=== PATIENT | female | born 1945 | race Caucasian/White ===

== ENCOUNTER → 2016-04-24 | Outpatient (REF) | payer MEDICARE, MEDICAID | LOC: M LAB REF 15:03 | PROVIDERS: ATTEND Physician Assistant | DX: R50.9 Fever, unspecified (principal) ==

== ENCOUNTER 2016-05-26 14:19 | Emergency (ER) | payer OTHER, MEDICAID ==
[~2016-05-26] VITALS: Ht 160 cm; Wt 72.6 kg
[2016-05-26] MEDS ORDERED: TYLE500T78 PO (15:21)
[2016-05-26 15:35] LABS: BASO # 0.1 K/mm3 (0.0-0.2); BASO % 0.9 % (0.0-1.0); EOS # 1.3 K/mm3 (0.0-0.50); EOS % 18.6 % (0.0-3.0); LARGE UNSTAINED CELL # 0.1 K/mm3 (0.0-0.4); LARGE UNSTAINED CELL % 1.7 % (0.0-4.0); LYMPH # 1.7 K/mm3 (1.5-4.5); LYMPH % 23.4 % (24.0-44.0); MEAN CORPUSCULAR HEMOGLOBIN 30.3 pg (27.0-33.0); MEAN CORPUSCULAR HGB CONC 33.4 g/dl (32.0-36.5); MEAN CORPUSCULAR VOLUME 90.6 fl (80.0-96.0); MONO # 0.4 K/mm3 (0.0-0.8); MONO % 5.1 % (0.0-5.0); NEUTROPHILS # 3.4 K/mm3 (1.8-7.7); NEUTROPHILS % 50.3 % (36.0-66.0); PLATELET COUNT, AUTOMATED 239 k/mm3 (150-450); RED CELL DISTRIBUTION WIDTH 13.6 % (11.5-14.5); WHITE BLOOD COUNT 6.8 K/mm3 (4.0-10.0)
[2016-05-26 15:56] LABS: ALBUMIN 3.4 GM/DL (3.2-5.2); ALBUMIN/GLOBULIN RATIO 0.74 (1.00-1.93); ALKALINE PHOSPHATASE 70 U/L (45-117); ALT/SGPT 8 U/L (12-78); ANION GAP 7 MEQ/L (8-16); AST/SGOT 12 U/L (15-37); BILIRUBIN,DIRECT 0.1 MG/DL (0.0-0.2); BILIRUBIN,TOTAL 0.4 MG/DL (0.2-1.0); BLOOD UREA NITROGEN 14 MG/DL (7-18); CALCIUM LEVEL 8.6 MG/DL (8.8-10.2); CARBON DIOXIDE LEVEL 29 MEQ/L (21-32); CHLORIDE LEVEL 105 MEQ/L (98-107); CREATININE FOR GFR 0.85 MG/DL (0.55-1.02); GLOMERULAR FILTRATION RATE > 60.0 (>45); GLUCOSE, FASTING 81 MG/DL (80-110); POTASSIUM SERUM 3.8 MEQ/L (3.5-5.1); SODIUM LEVEL 141 MEQ/L (136-145)
[2016-05-26] MEDS ORDERED: CHLO125TA PO (16:02)
[2016-05-26] MEDS ORDERED: CHLORTHALIDONE 12.5MG PER 1/2 TABLET PO ONE (16:15)
[2016-05-26 16:30] VITALS: BP 184/76
--- NOTE | 2016-05-26 20:05 | ECGEPIP ---
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
--- NOTE | 2016-05-27 07:43 | REP ---
Noncontrast brain CT: History: Altered mental status. No comparison views. Findings: Lateral paint pourer image demonstrates that the patient is edentulous. Bone window settings demonstrate an intact bony calvarium. Vascular calcification is seen in the distal vertebral and distal carotid arteries. The visualized paranasal sinuses are clear. There is mild cerebral atrophy. There is no evidence of intracranial hemorrhage. No extra-axial fluid collection is seen. No mass, infarction, midline shift or contusion is seen. Impression: Minimal diffuse atrophy and vascular calcification. No acute intracranial abnormality. Signed by Heladio Lao MD 05/27/2016 08:43 A
== END 2016-05-26 16:41 | disposition home or self-care (01) ==
LOC: M ED 15:49
DX: I10 Essential (primary) hypertension (principal); H53.8 Other visual disturbances

== ENCOUNTER 2016-06-28 12:17 | Emergency (ER) | payer OTHER, MEDICAID ==
[~2016-06-28 12:17] MED LIST: CHLO125TA PO; TYLE500T78 PO
[2016-06-28] MEDS ORDERED: NORCO, ANEXSIA 5/325MG TABLET (HYDROcodone/ACETAMINOPHEN) PO ONE (13:30)
--- NOTE | 2016-06-28 14:07 | REP ---
RIGHT LOWER EXTREMITY DUPLEX VENOUS ULTRASOUND: HISTORY: Right leg pain. FINDINGS: There is echogenic material, lack of compression, and absence of flow in the right femoral, common femoral, popliteal, and profunda femoral vein segments consistent with occlusive and fairly extensive deep vein thrombosis. IMPRESSION: Positive study. Extensive occlusive DVT right lower extremity common femoral vein through the popliteal vein. Signed by Heladio Lao MD 06/28/2016 04:47 P
[2016-06-28] MEDS ORDERED: ELIQ5TAB PO (14:16)
[2016-06-28] MEDS ORDERED: NORC1TAB4 PO (14:21)
[2016-06-28] MEDS ORDERED: CHLO125TA PO (14:21)
[2016-06-28 14:27] VITALS: BP 135/57
[2016-06-28] MEDS ORDERED: APIXABAN 5 MG TAB (ELIQUIS) PO ONE (14:30)
[2016-06-28 14:32] LABS: BASO # 0.1 K/mm3 (0.0-0.2); BASO % 0.6 % (0.0-1.0); EOS # 0.2 K/mm3 (0.0-0.50); EOS % 1.5 % (0.0-3.0); LARGE UNSTAINED CELL # 0.1 K/mm3 (0.0-0.4); LARGE UNSTAINED CELL % 0.9 % (0.0-4.0); LYMPH # 0.9 K/mm3 (1.5-4.5); LYMPH % 8.5 % (24.0-44.0); MEAN CORPUSCULAR HEMOGLOBIN 29.5 pg (27.0-33.0); MEAN CORPUSCULAR HGB CONC 32.6 g/dl (32.0-36.5); MEAN CORPUSCULAR VOLUME 90.4 fl (80.0-96.0); MONO # 0.5 K/mm3 (0.0-0.8); MONO % 4.6 % (0.0-5.0); NEUTROPHILS # 8.8 K/mm3 (1.8-7.7); NEUTROPHILS % 83.9 % (36.0-66.0); PLATELET COUNT, AUTOMATED 355 k/mm3 (150-450); RED CELL DISTRIBUTION WIDTH 12.9 % (11.5-14.5); WHITE BLOOD COUNT 10.5 K/mm3 (4.0-10.0)
[2016-06-28 14:45] LABS: INR 1.08
[2016-06-28 14:52] LABS: CALCIUM LEVEL 9.4 MG/DL (8.8-10.2); CREATININE FOR GFR 1.21 MG/DL (0.55-1.02); POTASSIUM SERUM 4.7 MEQ/L (3.5-5.1)
== END 2016-06-28 14:41 | disposition home or self-care (01) ==
LOC: M ED 12:58
DX: I82.401 Acute embolism and thrombosis of unspecified deep veins of right lower extremity (principal); I10 Essential (primary) hypertension

== ENCOUNTER → 2016-07-02 | Outpatient (REF) | payer OTHER, MEDICAID ==
[~2016-07-02] MED LIST changes: +ELIQ5TAB PO; +NORC1TAB4 PO
[2016-07-02 11:57] LABS: ALBUMIN/GLOBULIN RATIO 0.79 (1.00-1.93); ALKALINE PHOSPHATASE 62 U/L (45-117); ALT/SGPT 7 U/L (12-78); ANION GAP 7 MEQ/L (8-16); AST/SGOT 10 U/L (15-37); BILIRUBIN,TOTAL 0.4 MG/DL (0.2-1.0); BLOOD UREA NITROGEN 17 MG/DL (7-18); CALCIUM LEVEL 8.6 MG/DL (8.8-10.2); CARBON DIOXIDE LEVEL 31 MEQ/L (21-32); CHLORIDE LEVEL 100 MEQ/L (98-107); CHOLESTEROL LEVEL 166 MG/DL (<200); CREATININE FOR GFR 0.95 MG/DL (0.55-1.02); GLOMERULAR FILTRATION RATE > 60.0 (>45); GLUCOSE, FASTING 102 MG/DL (80-110); POTASSIUM SERUM 3.7 MEQ/L (3.5-5.1); SODIUM LEVEL 138 MEQ/L (136-145); TOTAL PROTEIN 6.8 GM/DL (6.4-8.2); TRIGLYCERIDES LEVEL 102 MG/DL (<150)
== END ==
LOC: M SFHCPLAZ 08:44
PROVIDERS: ATTEND Family Medicine
DX: I10 Essential (primary) hypertension (principal); Z13.21 Encounter for screening for nutritional disorder

== ENCOUNTER → 2016-07-18 | Outpatient (CLI) | payer OTHER, MEDICAID ==
--- NOTE | 2016-07-18 14:55 | REP ---
CHEST CT STUDY: LOW-DOSE LUNG CANCER SCREENING EXAM. NONCONTRAST. HISTORY: Tobacco use. COMPARISON: Chest x-ray December 20, 2004. FINDINGS: There is no evidence of pulmonary nodule or mass lesion. There is some linear fibrosis adjacent to the thoracic spine in the right lower lobe. The lung parenchyma is otherwise clear. There is vascular calcification in the aorta. IMPRESSION: Negative low-dose lung cancer screening chest CT study. Signed by Heladio Lao MD 07/18/2016 04:35 P
== END ==
LOC: M RAD 10:53
PROVIDERS: ATTEND Family Medicine
DX: Z12.2 Encounter for screening for malignant neoplasm of respiratory organs (principal); F17.210 Nicotine dependence, cigarettes, uncomplicated

== ENCOUNTER → 2016-08-13 | Outpatient (REF) | payer OTHER, MEDICAID | LOC: M SFHCPLAZ 11:01 | PROVIDERS: ATTEND Family Medicine | DX: Z12.4 Encounter for screening for malignant neoplasm of cervix (principal); R87.610 Atypical squamous cells of undetermined significance on cytologic smear of cervix (ASC-US) | CPT/HCPCS: 87624; G0123; G0463 ==

== ENCOUNTER → 2016-08-21 | Outpatient (REF) | payer MEDICARE, OTHER | LOC: M LABDRAW1 15:52 | PROVIDERS: ATTEND Family Medicine | DX: E78.5 Hyperlipidemia, unspecified (principal) ==

== ENCOUNTER → 2016-08-27 | Outpatient (CLI) | payer OTHER, MEDICAID ==
--- NOTE | 2016-08-27 14:15 | REPMRS ---
Patient History The patient states she had a clinical breast exam in 08/25 Baseline Mammogram Patient is postmenopausal. No known family history of cancer. Digital Woman Screen Mammo: August 27, 2016 - Exam #: [id number] Bilateral CC and MLO view(s) were taken. Technologist: Hattie Santoyo, Technologist FINDINGS: The breast tissue is extremely dense which could obscure a lesion on mammography. There is no evidence of cancer on this mammogram. ASSESSMENT: BI-RADS/ACR category 2 mammogram. Benign finding(s). Recommendation Routine screening mammogram of both breasts in 1 year (for women over age 40). This mammogram was interpreted with the aid of an FDA-approved computer-aided dectection system. Electronically Signed By: James Cordero MD 08/27/16 [id number]
== END ==
LOC: M WHC 12:47
PROVIDERS: ATTEND Family Medicine
DX: Z12.31 Encounter for screening mammogram for malignant neoplasm of breast (principal)

== ENCOUNTER → 2016-10-03 | Outpatient (CLI) | payer OTHER, MEDICAID ==
[~2016-10-03] VITALS: Ht 157.5 cm; Wt 72.6 kg
[~2016-10-03] MED LIST changes: +ATOR1TAB21 PO; +BIMA01SOL; +LIDOCAINE 2% INJ 100 MG/5 ML SDV (FOR ANES.) As Ordered ONE; +NS 1,000 ML IV ONE; +PROPOFOL 200 MG/20 ML VIAL As Ordered ONE; +VITA1CAP40 PO; +XARE20TA PO
--- NOTE | 2016-10-03 12:17 | ROOR ---
Patient Name: Nedra Bledsoe Procedure Date: 10/03/2016 11:38 AM Date of : 1945 Age: 71 Room: [facility] Gender: Female Note Status: Finalized Procedure: Colonoscopy Indications: Screening for colorectal malignant neoplasm Providers: DO Emily Da Silva MD: Yaquelin Diaz MD Requesting Provider: Medicines: Propofol per Anesthesia Complications: No immediate complications. Procedure: Pre-Anesthesia Assessment: - Prior to the procedure, a History and Physical was performed, and patient medications and allergies were reviewed. The patient is competent. The risks and benefits of the procedure and the sedation options and risks were discussed with the patient. All questions were answered and informed consent was obtained. Patient identification and proposed procedure were verified by the physician, the nurse, the anesthesiologist and the paint laboratory technician in the endoscopy suite. Mental Status Examination: alert and oriented. Airway Examination: normal oropharyngeal airway and neck mobility. Respiratory Examination: clear to auscultation. CV Examination: normal. Prophylactic Antibiotics: The patient does not require prophylactic antibiotics. Prior Anticoagulants: The patient has taken Xarelto (rivaroxaban), last dose was 3 days prior to procedure. ASA Grade Assessment: II - A patient with mild systemic disease. After reviewing the risks and benefits, the patient was deemed in satisfactory condition to undergo the procedure. The anesthesia plan was to use monitored anesthesia care (MAC). Immediately prior to administration of medications, the patient was re-assessed for adequacy to receive sedatives. The heart rate, respiratory rate, oxygen saturations, blood pressure, adequacy of pulmonary ventilation, and response to care were monitored throughout the procedure. The physical status of the patient was re-assessed after the procedure. The Colonoscope was introduced through the anus and advanced to the cecum, identified by appendiceal orifice and ileocecal valve. The colonoscopy was performed without difficulty. The patient tolerated the procedure well. Findings: Two hyperplastic polyps were found in the proximal transverse colon and ascending colon. The polyps were 3 to 6 mm in size. These polyps were removed with a jumbo cold forceps. Resection and retrieval were complete. Estimated blood loss was minimal. Multiple small and large-mouthed diverticula were found in the sigmoid colon. The exam was otherwise without abnormality on direct and retroflexion views. Impression: - Two 3 to 6 mm polyps in the proximal transverse colon and in the ascending colon, removed with a jumbo cold forceps. Resected and retrieved. - Diverticulosis in the sigmoid colon. - The examination was otherwise normal on direct and retroflexion views. Recommendation: - Patient has a contact number available for emergencies. The signs and symptoms of potential delayed complications were discussed with the patient. Return to normal activities tomorrow. Written discharge instructions were provided to the patient. - Repeat colonoscopy in 5-10 years for surveillance based on pathology results. - Return to my office PRN. - Telephone my office for pathology results in 1 week. James Christine DO 10/03/2016 12:16:47 PM This report has been signed electronically. Number of Addenda: 0 Note Initiated On: 10/03/2016 11:38 AM Estimated Blood Loss: Estimated blood loss was minimal.
[2016-10-03 12:40] VITALS: BP 168/68
== END | disposition home or self-care (01) ==
LOC: M OPP 11:11
PROVIDERS: ATTEND Surgery
DX: Z12.11 Encounter for screening for malignant neoplasm of colon (principal); D12.2 Benign neoplasm of ascending colon; D12.3 Benign neoplasm of transverse colon; K57.30 Diverticulosis of large intestine without perforation or abscess without bleeding; I10 Essential (primary) hypertension; E78.5 Hyperlipidemia, unspecified; Z86.718 Personal history of other venous thrombosis and embolism; Z78.0 Asymptomatic menopausal state; F17.210 Nicotine dependence, cigarettes, uncomplicated; Z79.01 Long term (current) use of anticoagulants; Z79.899 Other long term (current) drug therapy; Z80.9 Family history of malignant neoplasm, unspecified

== ENCOUNTER → 2017-02-20 | Outpatient (REF) | payer OTHER, MEDICAID ==
[~2017-02-20] MED LIST changes: -LIDOCAINE 2% INJ 100 MG/5 ML SDV (FOR ANES.) As Ordered ONE; -NS 1,000 ML IV ONE; -PROPOFOL 200 MG/20 ML VIAL As Ordered ONE
[2017-02-20 11:12] LABS: CALCIUM LEVEL 8.6 MG/DL (8.8-10.2); CREATININE FOR GFR 1.05 MG/DL (0.55-1.02); GLOMERULAR FILTRATION RATE 55.2 (>39); POTASSIUM SERUM 4.1 MEQ/L (3.5-5.1)
== END ==
LOC: M SFHCPLAZ 09:09
PROVIDERS: ATTEND Family Medicine
DX: I10 Essential (primary) hypertension (principal)

== ENCOUNTER → 2017-02-27 | Outpatient (CLI) | payer OTHER, MEDICAID ==
--- NOTE | 2017-03-01 10:34 | DEXA ---
AP SPINE L1 - L4 1.330 1.1 2.8 LT FEMUR TOTAL 1.139 1.0 2.5 RT FEMUR TOTAL 1.099 0.7 2.2 TOTAL BODY TOTAL OTHER COMMENTS: Normal bone densitometry of the spine and hips. FOLLOW-UP: Recommendation for the next bone density exam: 5 years. AMBROCIO
== END ==
LOC: M WHC 07:42
PROVIDERS: ATTEND Family Medicine
DX: M81.0 Age-related osteoporosis without current pathological fracture (principal)

== ENCOUNTER 2017-09-19 15:28 | Inpatient (IN) | payer OTHER, MEDICAID ==
[2017-09-19 17:11] LABS: BEDSIDE GLUCOSE 142 MG/DL (83-110)
[2017-09-19 17:23] LABS: BASO % 0.3 % (0.0-1.0); EOS % 0.3 % (0.0-3.0); HEMATOCRIT 19.7 % (36.0-47.0); IMMATURE GRANULOCYTE % 1.2 % (0-3.0); LYMPH # 1.4 10^3/uL (1.5-4.5); LYMPH % 10.7 % (24.0-44.0); MEAN CORPUSCULAR HEMOGLOBIN 31.3 pg (27.0-33.0); MEAN CORPUSCULAR HGB CONC 33.5 g/dl (32.0-36.5); MEAN CORPUSCULAR VOLUME 93.4 fl (80.0-96.0); MONO # 0.8 10^3/uL (0.0-0.8); MONO % 6.1 % (0.0-5.0); NEUTROPHILS % 81.4 % (36.0-66.0); PLATELET COUNT, AUTOMATED 247 10^3/uL (150-450); RED BLOOD COUNT 2.11 10^6/uL (4.00-5.40); RED CELL DISTRIBUTION WIDTH 14.3 % (11.5-14.5); WHITE BLOOD COUNT 13.5 10^3/uL (4.0-10.0)
[2017-09-19 17:40] LABS: HEMOGLOBIN 6.6 g/dl (12.0-15.5)
[2017-09-19 17:41] LABS: INR 1.15; PROTHROMBIN TIME 14.9 SECONDS (12.1-14.4)
[2017-09-19 17:42] LABS: PARTIAL THROMBOPLASTIN TIME 23.3 SECONDS (25.4-37.6)
[2017-09-19 17:46] LABS: ANION GAP 10 MEQ/L (8-16); BLOOD UREA NITROGEN 38 MG/DL (7-18); CALCIUM LEVEL 8.3 MG/DL (8.8-10.2); CARBON DIOXIDE LEVEL 28 MEQ/L (21-32); CHLORIDE LEVEL 104 MEQ/L (98-107); CPK CREATINE PHOSPHOKINASE 68 U/L (26-192); CREATININE FOR GFR 1.11 MG/DL (0.55-1.30); FREE T4 1.09 NG/DL (0.76-1.46); GLOMERULAR FILTRATION RATE 51.6 (>39); GLUCOSE, FASTING 134 MG/DL (70-100); POTASSIUM SERUM 3.1 MEQ/L (3.5-5.1); SODIUM LEVEL 142 MEQ/L (136-145); TROPONIN I < 0.02 NG/ML (< 0.10)
[2017-09-19 17:52] LABS: CK-MB VALUE MASS 1.8 NG/ML (<3.6); MB/CK RELATIVE INDEX 2.64 (< OR =4)
[2017-09-19] MEDS: NS 1,000 ML IV (18:11)
[2017-09-19 18:14] LABS: KETONE, URINE AUTO RFX NEGATIVE (NEGATIVE); MUCUS, URINE RFX SMALL (NEGATIVE); NITRITE, URINE AUTO RFX NEGATIVE (NEGATIVE); RBC, URINE AUTO RFX 6 /HPF (0-3); SPECIFIC GRAVITY UR AUTO RFX 1.017 (1.002-1.035); SQUAM EPITHELIAL CELL UR AURFX 5 /HPF (0-6)
[2017-09-19 18:17] LABS: LEUKOCYTE ESTERASE UR AUTO RFX 3+ (NEGATIVE); WBC, URINE AUTO RFX 55 /HPF (0-3)
[2017-09-19 18:27] LABS: AMPHETAMINES LEVEL URINE NEGATIVE (NEGATIVE); BARBITURATES URINE NEGATIVE (NEGATIVE); BENZODIAZEPINES URINE NEGATIVE (NEGATIVE); CANNABINOIDS URINE NEGATIVE (NEGATIVE); COCAINE METABOLITE URINE NEGATIVE (NEGATIVE); METHADONE URINE NEGATIVE (NEGATIVE); OPIATES URINE NEGATIVE (NEGATIVE); PHENCYCLIDINE URINE NEGATIVE (NEGATIVE)
[2017-09-19] MEDS: PANTOPRAZOLE 40MG INJ (PROTONIX) (C9113) IV (18:31)
[2017-09-19] MEDS: NS 500 ML IV (18:32)
[2017-09-19] MEDS: POTASSIUM CHLORIDE 10 MEQ SR TABLET PO (18:32)
[2017-09-19 19:18] LABS: IMMEDIATE SPIN CROSSMATCH 1 2
[2017-09-19] MEDS ORDERED: ONDANSETRON 4MG/2ML VIAL (J2405) IV (21:15)
[2017-09-20] MEDS: PANTOPRAZOLE SODIUM 40 MG in D5W 50 ML IV ×6 (00:39→20:48)
[2017-09-20] MEDS: NS 1,000 ML IV (00:39)
[2017-09-20] MEDS: cefTRIAXone SOD 1 GM in D5W MINI-BAG PLUS 50 ML IV ×2 (00:40→22:01)
[2017-09-20 01:22] LABS: HEMOGLOBIN 8.2 g/dl (12.0-15.5)
[2017-09-20 05:28] LABS: BASO % 0.4 % (0.0-1.0); EOS # 0.1 10^3/uL (0.0-0.50); EOS % 0.8 % (0.0-3.0); HEMATOCRIT 23.4 % (36.0-47.0); HEMOGLOBIN 7.9 g/dl (12.0-15.5); IMMATURE GRANULOCYTE % 1.1 % (0-3.0); LYMPH % 21.7 % (24.0-44.0); MEAN CORPUSCULAR HEMOGLOBIN 31.3 pg (27.0-33.0); MEAN CORPUSCULAR HGB CONC 33.8 g/dl (32.0-36.5); MEAN CORPUSCULAR VOLUME 92.9 fl (80.0-96.0); MONO # 0.7 10^3/uL (0.0-0.8); MONO % 7.3 % (0.0-5.0); NEUTROPHILS # 6.2 10^3/uL (1.8-7.7); NEUTROPHILS % 68.7 % (36.0-66.0); PLATELET COUNT, AUTOMATED 205 10^3/uL (150-450); RED BLOOD COUNT 2.52 10^6/uL (4.00-5.40); RED CELL DISTRIBUTION WIDTH 14.3 % (11.5-14.5)
[2017-09-20 05:45] LABS: ANION GAP 8 MEQ/L (8-16); BLOOD UREA NITROGEN 30 MG/DL (7-18); CALCIUM LEVEL 7.5 MG/DL (8.8-10.2); CARBON DIOXIDE LEVEL 27 MEQ/L (21-32); CHLORIDE LEVEL 110 MEQ/L (98-107); CREATININE FOR GFR 0.94 MG/DL (0.55-1.30); GLOMERULAR FILTRATION RATE > 60.0 (>39); GLUCOSE, FASTING 96 MG/DL (70-100); MAGNESIUM LEVEL 1.9 MG/DL (1.8-2.4); POTASSIUM SERUM 3.2 MEQ/L (3.5-5.1); SODIUM LEVEL 145 MEQ/L (136-145)
[2017-09-20] MEDS: MAG SULF 1GM/100ML (MAG RUN) 1 GM in APPROPRIATE DILUENT 1 EA IV (06:51)
[2017-09-20] MEDS: POTASSIUM CHLORIDE 10 MEQ SR TABLET PO (06:51)
[2017-09-20] MEDS ORDERED: LIDOCAINE 2% INJ 100 MG/5 ML SDV (FOR ANES.) As Ordered (08:24)
[2017-09-20] MEDS ORDERED: PROPOFOL 200 MG/20 ML VIAL As Ordered ×2 (08:24→10:36)
[2017-09-20] MEDS: KCL 40MEQ in NS 1000ML 1,000 ML IV (08:41)
[2017-09-20 09:41] LABS: PROLACTIN 7.3 NG/ML
[2017-09-20 10:04] LABS: CK-MB VALUE MASS 2.1 NG/ML (<3.6); CPK CREATINE PHOSPHOKINASE 115 U/L (26-192); MB/CK RELATIVE INDEX 1.82 (< OR =4); TROPONIN I < 0.02 NG/ML (< 0.10)
[2017-09-20] MEDS ORDERED: fentaNYL 100 MCG/2 ML INJECTION (J3010) As Ordered (10:26)
[2017-09-20 12:18] LABS: IMMEDIATE SPIN CROSSMATCH 1 1
[2017-09-20 12:44] LABS: HEMATOCRIT 22.5 % (36.0-47.0); HEMOGLOBIN 7.8 g/dl (12.0-15.5)
[2017-09-20 13:23] LABS: CPK CREATINE PHOSPHOKINASE 143 U/L (26-192); TROPONIN I < 0.02 NG/ML (< 0.10)
[2017-09-20 13:24] LABS: CK-MB VALUE MASS 2.5 NG/ML (<3.6); MB/CK RELATIVE INDEX 1.74 (< OR =4)
[2017-09-20] MEDS: ACETAMINOPHEN TAB 650MG DOSE (2X325MG) PO (13:30)
[2017-09-20 18:36] LABS: HEMATOCRIT 26.4 % (36.0-47.0)
[2017-09-20 19:05] LABS: CPK CREATINE PHOSPHOKINASE 189 U/L (26-192); TROPONIN I < 0.02 NG/ML (< 0.10)
[2017-09-20 19:06] LABS: CK-MB VALUE MASS 3.1 NG/ML (<3.6); MB/CK RELATIVE INDEX 1.64 (< OR =4)
[2017-09-21] MEDS: KCL 40MEQ in NS 1000ML 1,000 ML IV ×2 (00:18→09:13)
[2017-09-21 00:31] LABS: HEMATOCRIT 27.2 % (36.0-47.0); HEMOGLOBIN 9.6 g/dl (12.0-15.5)
[2017-09-21] MEDS: PANTOPRAZOLE SODIUM 40 MG in D5W 50 ML IV ×2 (03:30→09:01)
[2017-09-21 05:47] LABS: BASO # 0.1 10^3/uL (0.0-0.2); BASO % 0.6 % (0.0-1.0); EOS # 0.2 10^3/uL (0.0-0.50); HEMATOCRIT 25.8 % (36.0-47.0); HEMOGLOBIN 8.8 g/dl (12.0-15.5); LYMPH # 1.7 10^3/uL (1.5-4.5); LYMPH % 18.4 % (24.0-44.0); MEAN CORPUSCULAR HEMOGLOBIN 31.1 pg (27.0-33.0); MEAN CORPUSCULAR HGB CONC 34.1 g/dl (32.0-36.5); MEAN CORPUSCULAR VOLUME 91.2 fl (80.0-96.0); MONO # 0.9 10^3/uL (0.0-0.8); MONO % 9.4 % (0.0-5.0); NEUTROPHILS # 6.3 10^3/uL (1.8-7.7); NEUTROPHILS % 68.6 % (36.0-66.0); PLATELET COUNT, AUTOMATED 203 10^3/uL (150-450); RED BLOOD COUNT 2.83 10^6/uL (4.00-5.40); RED CELL DISTRIBUTION WIDTH 15.9 % (11.5-14.5); WHITE BLOOD COUNT 9.1 10^3/uL (4.0-10.0)
[2017-09-21 06:20] LABS: ANION GAP 6 MEQ/L (8-16); BLOOD UREA NITROGEN 13 MG/DL (7-18); CALCIUM LEVEL 7.1 MG/DL (8.8-10.2); CARBON DIOXIDE LEVEL 26 MEQ/L (21-32); CHLORIDE LEVEL 115 MEQ/L (98-107); CHOLESTEROL LEVEL 84 MG/DL (<200); CHOLESTEROL RISK RATIO 2.896 (<5); CREATININE FOR GFR 0.84 MG/DL (0.55-1.30); GLOMERULAR FILTRATION RATE > 60.0 (>39); GLUCOSE, FASTING 91 MG/DL (70-100); HDL CHOLESTEROL 29 MG/DL (>40); LDL CHOLESTEROL 30.4 MG/DL (<100); MAGNESIUM LEVEL 2.2 MG/DL (1.8-2.4); NON-HDL-C 55 MG/DL; POTASSIUM SERUM 4.2 MEQ/L (3.5-5.1); SODIUM LEVEL 147 MEQ/L (136-145); TRIGLYCERIDES LEVEL 123 MG/DL (<150)
[2017-09-21] MEDS: PANTOPRAZOLE 40MG INJ (PROTONIX) (C9113) IV ×2 (11:30→22:12)
[2017-09-21 12:15] LABS: HEMATOCRIT 25.8 % (36.0-47.0); HEMOGLOBIN 8.7 g/dl (12.0-15.5)
[2017-09-21] MEDS: CIPROFLOXACIN 500 MG TAB PO (17:50)
[2017-09-21 18:21] LABS: HEMATOCRIT 26.6 % (36.0-47.0); HEMOGLOBIN 8.8 g/dl (12.0-15.5)
[2017-09-22 00:08] LABS: HEMATOCRIT 25.7 % (36.0-47.0); HEMOGLOBIN 8.5 g/dl (12.0-15.5)
[2017-09-22] MEDS: CIPROFLOXACIN 500 MG TAB PO ×2 (05:59→17:33)
[2017-09-22 06:35] LABS: BASO % 0.4 % (0.0-1.0); EOS # 0.2 10^3/uL (0.0-0.50); EOS % 2.9 % (0.0-3.0); HEMATOCRIT 24.8 % (36.0-47.0); HEMOGLOBIN 8.3 g/dl (12.0-15.5); IMMATURE GRANULOCYTE % 0.7 % (0-3.0); LYMPH # 1.6 10^3/uL (1.5-4.5); MEAN CORPUSCULAR HEMOGLOBIN 31.3 pg (27.0-33.0); MEAN CORPUSCULAR HGB CONC 33.5 g/dl (32.0-36.5); MEAN CORPUSCULAR VOLUME 93.6 fl (80.0-96.0); MONO # 0.6 10^3/uL (0.0-0.8); MONO % 8.7 % (0.0-5.0); NEUTROPHILS # 4.7 10^3/uL (1.8-7.7); NEUTROPHILS % 65.3 % (36.0-66.0); PLATELET COUNT, AUTOMATED 232 10^3/uL (150-450); RED BLOOD COUNT 2.65 10^6/uL (4.00-5.40); RED CELL DISTRIBUTION WIDTH 16.8 % (11.5-14.5); WHITE BLOOD COUNT 7.1 10^3/uL (4.0-10.0)
[2017-09-22 06:49] LABS: ANION GAP 7 MEQ/L (8-16); BLOOD UREA NITROGEN 10 MG/DL (7-18); CALCIUM LEVEL 7.6 MG/DL (8.8-10.2); CARBON DIOXIDE LEVEL 27 MEQ/L (21-32); CHLORIDE LEVEL 113 MEQ/L (98-107); CREATININE FOR GFR 0.91 MG/DL (0.55-1.30); GLOMERULAR FILTRATION RATE > 60.0 (>39); GLUCOSE, FASTING 85 MG/DL (70-100); MAGNESIUM LEVEL 2.4 MG/DL (1.8-2.4); POTASSIUM SERUM 4.3 MEQ/L (3.5-5.1); SODIUM LEVEL 147 MEQ/L (136-145)
[2017-09-22 11:28] LABS: IMMEDIATE SPIN CROSSMATCH 1 2
[2017-09-22] MEDS: PANTOPRAZOLE 40MG INJ (PROTONIX) (C9113) IV ×2 (11:29→23:09)
[2017-09-22] MEDS: CHLORTHALIDONE 12.5MG PER 1/2 TABLET PO (16:31)
[2017-09-23 00:47] LABS: HEMOGLOBIN 10.8 g/dl (12.0-15.5)
[2017-09-23] MEDS: ACETAMINOPHEN TAB 650MG DOSE (2X325MG) PO (01:40)
[2017-09-23] MEDS: CIPROFLOXACIN 500 MG TAB PO ×2 (06:40→17:26)
[2017-09-23 07:03] LABS: BASO % 0.5 % (0.0-1.0); EOS # 0.2 10^3/uL (0.0-0.50); EOS % 3.2 % (0.0-3.0); HEMATOCRIT 31.6 % (36.0-47.0); HEMOGLOBIN 10.5 g/dl (12.0-15.5); IMMATURE GRANULOCYTE % 0.5 % (0-3.0); LYMPH # 1.5 10^3/uL (1.5-4.5); LYMPH % 23.9 % (24.0-44.0); MEAN CORPUSCULAR HEMOGLOBIN 30.5 pg (27.0-33.0); MEAN CORPUSCULAR HGB CONC 33.2 g/dl (32.0-36.5); MEAN CORPUSCULAR VOLUME 91.9 fl (80.0-96.0); MONO # 0.6 10^3/uL (0.0-0.8); MONO % 10.2 % (0.0-5.0); NEUTROPHILS # 3.9 10^3/uL (1.8-7.7); NEUTROPHILS % 61.7 % (36.0-66.0); PLATELET COUNT, AUTOMATED 221 10^3/uL (150-450); RED BLOOD COUNT 3.44 10^6/uL (4.00-5.40); RED CELL DISTRIBUTION WIDTH 16.7 % (11.5-14.5); WHITE BLOOD COUNT 6.3 10^3/uL (4.0-10.0)
[2017-09-23 07:15] LABS: ANION GAP 5 MEQ/L (8-16); BLOOD UREA NITROGEN 9 MG/DL (7-18); CARBON DIOXIDE LEVEL 29 MEQ/L (21-32); CHLORIDE LEVEL 111 MEQ/L (98-107); CREATININE FOR GFR 0.94 MG/DL (0.55-1.30); GLOMERULAR FILTRATION RATE > 60.0 (>39); GLUCOSE, FASTING 83 MG/DL (70-100); MAGNESIUM LEVEL 2.1 MG/DL (1.8-2.4); POTASSIUM SERUM 4.1 MEQ/L (3.5-5.1); SODIUM LEVEL 145 MEQ/L (136-145)
[2017-09-23] MEDS: CHLORTHALIDONE 12.5MG PER 1/2 TABLET PO (08:29)
[2017-09-23] MEDS: PANTOPRAZOLE 40MG INJ (PROTONIX) (C9113) IV ×2 (11:00→22:12)
[2017-09-23 14:01] LABS: HEMOGLOBIN 11.9 g/dl (12.0-15.5)
[2017-09-23 18:35] LABS: HEMATOCRIT 35.3 % (36.0-47.0); HEMOGLOBIN 11.8 g/dl (12.0-15.5)
[2017-09-24 00:27] LABS: HEMATOCRIT 31.8 % (36.0-47.0); HEMOGLOBIN 10.7 g/dl (12.0-15.5)
[2017-09-24] MEDS: CIPROFLOXACIN 500 MG TAB PO ×2 (05:55→17:45)
[2017-09-24 06:58] LABS: BASO % 0.5 % (0.0-1.0); EOS # 0.2 10^3/uL (0.0-0.50); EOS % 3.4 % (0.0-3.0); HEMATOCRIT 31.7 % (36.0-47.0); HEMOGLOBIN 10.7 g/dl (12.0-15.5); IMMATURE GRANULOCYTE % 0.3 % (0-3.0); LYMPH # 1.2 10^3/uL (1.5-4.5); MEAN CORPUSCULAR HEMOGLOBIN 30.8 pg (27.0-33.0); MEAN CORPUSCULAR HGB CONC 33.8 g/dl (32.0-36.5); MEAN CORPUSCULAR VOLUME 91.4 fl (80.0-96.0); MONO # 0.7 10^3/uL (0.0-0.8); MONO % 11.8 % (0.0-5.0); NEUTROPHILS # 3.7 10^3/uL (1.8-7.7); PLATELET COUNT, AUTOMATED 243 10^3/uL (150-450); RED BLOOD COUNT 3.47 10^6/uL (4.00-5.40); RED CELL DISTRIBUTION WIDTH 15.6 % (11.5-14.5); WHITE BLOOD COUNT 5.8 10^3/uL (4.0-10.0)
[2017-09-24 07:17] LABS: ANION GAP 7 MEQ/L (8-16); BLOOD UREA NITROGEN 8 MG/DL (7-18); CALCIUM LEVEL 8.5 MG/DL (8.8-10.2); CARBON DIOXIDE LEVEL 29 MEQ/L (21-32); CHLORIDE LEVEL 106 MEQ/L (98-107); CREATININE FOR GFR 0.93 MG/DL (0.55-1.30); GLOMERULAR FILTRATION RATE > 60.0 (>39); GLUCOSE, FASTING 84 MG/DL (70-100); MAGNESIUM LEVEL 2.1 MG/DL (1.8-2.4); POTASSIUM SERUM 3.9 MEQ/L (3.5-5.1); SODIUM LEVEL 142 MEQ/L (136-145)
[2017-09-24] MEDS: CHLORTHALIDONE 12.5MG PER 1/2 TABLET PO (08:50)
[2017-09-24] MEDS: PANTOPRAZOLE 40MG INJ (PROTONIX) (C9113) IV ×2 (11:46→22:34)
[2017-09-24 12:31] LABS: HEMATOCRIT 35.8 % (36.0-47.0); HEMOGLOBIN 12.1 g/dl (12.0-15.5)
[2017-09-24 18:11] LABS: HEMOGLOBIN 11.9 g/dl (12.0-15.5)
[2017-09-25 00:23] LABS: HEMATOCRIT 30.9 % (36.0-47.0); HEMOGLOBIN 10.3 g/dl (12.0-15.5)
[2017-09-25] MEDS: CIPROFLOXACIN 500 MG TAB PO (05:18)
[2017-09-25 06:53] LABS: ANION GAP 5 MEQ/L (8-16); BLOOD UREA NITROGEN 13 MG/DL (7-18); CALCIUM LEVEL 8.5 MG/DL (8.8-10.2); CARBON DIOXIDE LEVEL 32 MEQ/L (21-32); CHLORIDE LEVEL 105 MEQ/L (98-107); CREATININE FOR GFR 1.07 MG/DL (0.55-1.30); GLOMERULAR FILTRATION RATE 53.8 (>39); GLUCOSE, FASTING 100 MG/DL (70-100); MAGNESIUM LEVEL 2.1 MG/DL (1.8-2.4); POTASSIUM SERUM 3.9 MEQ/L (3.5-5.1); SODIUM LEVEL 142 MEQ/L (136-145)
[2017-09-25 07:13] LABS: BASO % 0.5 % (0.0-1.0); EOS # 0.3 10^3/uL (0.0-0.50); EOS % 4.4 % (0.0-3.0); HEMATOCRIT 32.8 % (36.0-47.0); HEMOGLOBIN 10.8 g/dl (12.0-15.5); IMMATURE GRANULOCYTE % 0.4 % (0-3.0); LYMPH # 1.1 10^3/uL (1.5-4.5); LYMPH % 18.7 % (24.0-44.0); MEAN CORPUSCULAR HEMOGLOBIN 30.9 pg (27.0-33.0); MEAN CORPUSCULAR HGB CONC 32.9 g/dl (32.0-36.5); MONO # 0.7 10^3/uL (0.0-0.8); MONO % 11.5 % (0.0-5.0); NEUTROPHILS # 3.6 10^3/uL (1.8-7.7); NEUTROPHILS % 64.5 % (36.0-66.0); PLATELET COUNT, AUTOMATED 261 10^3/uL (150-450); RED BLOOD COUNT 3.49 10^6/uL (4.00-5.40); RED CELL DISTRIBUTION WIDTH 14.8 % (11.5-14.5); WHITE BLOOD COUNT 5.6 10^3/uL (4.0-10.0)
[2017-09-25] MEDS: CHLORTHALIDONE 12.5MG PER 1/2 TABLET PO (10:17)
[2017-09-25] MEDS: PANTOPRAZOLE 40MG INJ (PROTONIX) (C9113) IV (10:17)
== END 2017-09-25 14:13 | disposition home or self-care (01) | DRG 378 ==
LOC: M MSPAV 09-21 10:55 → M ED 15:28 → M MSPAV 09-21 11:18 → M ED INP 21:08 → M PCU 23:25
PROC: 0W3P8ZZ Control Bleeding in Gastrointestinal Tract, Via Natural or Artificial Opening Endoscopic (ICD-10-PCS; principal; 2017-09-20 10:00)
PROC: 30233N1 Transfusion of Nonautologous Red Blood Cells into Peripheral Vein, Percutaneous Approach (ICD-10-PCS; 2017-09-20 10:09)
DX: K31.811 Angiodysplasia of stomach and duodenum with bleeding (principal); D62 Acute posthemorrhagic anemia; N39.0 Urinary tract infection, site not specified; I10 Essential (primary) hypertension; E78.5 Hyperlipidemia, unspecified; H40.9 Unspecified glaucoma; Z86.718 Personal history of other venous thrombosis and embolism; Z98.49 Cataract extraction status, unspecified eye; F17.210 Nicotine dependence, cigarettes, uncomplicated; Z79.899 Other long term (current) drug therapy; Z79.01 Long term (current) use of anticoagulants; I45.10 Unspecified right bundle-branch block; B96.20 Unspecified Escherichia coli [E. coli] as the cause of diseases classified elsewhere

== ENCOUNTER → 2017-10-08 | Outpatient (REF) | payer OTHER ==
[2017-10-08 13:08] LABS: HEMATOCRIT 41.3 % (36.0-47.0); HEMOGLOBIN 13.4 g/dl (12.0-15.5); MEAN CORPUSCULAR HEMOGLOBIN 30.6 pg (27.0-33.0); MEAN CORPUSCULAR HGB CONC 32.4 g/dl (32.0-36.5); MEAN CORPUSCULAR VOLUME 94.3 fl (80.0-96.0); PLATELET COUNT, AUTOMATED 355 10^3/uL (150-450); RED BLOOD COUNT 4.38 10^6/uL (4.00-5.40); RED CELL DISTRIBUTION WIDTH 14.3 % (11.5-14.5); WHITE BLOOD COUNT 5.8 10^3/uL (4.0-10.0)
[2017-10-08 13:48] LABS: TOTAL 25(OH) VITAMIN D 107.2 NG/ML (30.0-100.0)
== END ==
LOC: M SFHCPLAZ 11:50
DX: D62 Acute posthemorrhagic anemia (principal); E55.9 Vitamin D deficiency, unspecified; Z79.899 Other long term (current) drug therapy
CPT/HCPCS: 82306

== ENCOUNTER → 2017-10-18 | Outpatient (CLI) | payer OTHER, MEDICAID | LOC: M WHC 09:10 | DX: Z12.31 Encounter for screening mammogram for malignant neoplasm of breast (principal) | CPT/HCPCS: 77067 ==

== ENCOUNTER → 2017-10-28 | Outpatient (REF) | payer OTHER ==
[2017-10-28 16:13] LABS: ANION GAP 8 MEQ/L (8-16); BLOOD UREA NITROGEN 15 MG/DL (7-18); CALCIUM LEVEL 8.9 MG/DL (8.8-10.2); CARBON DIOXIDE LEVEL 29 MEQ/L (21-32); CHLORIDE LEVEL 105 MEQ/L (98-107); CREATININE FOR GFR 1.18 MG/DL (0.55-1.30); GLOMERULAR FILTRATION RATE 48.1 (>39); GLUCOSE, FASTING 90 MG/DL (70-100); POTASSIUM SERUM 4.1 MEQ/L (3.5-5.1); SODIUM LEVEL 142 MEQ/L (136-145)
[2017-10-28 16:45] LABS: CREATININE, URINE 98.8 MG/DL; MALB URINE SIEMENS 38.3 MG/L; MAU/CREAT RATIO 38.7 MCG/MG (0.0-30.0)
== END ==
LOC: M SFHCPLAZ 13:31
DX: I10 Essential (primary) hypertension (principal)
CPT/HCPCS: 82043

== ENCOUNTER → 2017-11-12 | Outpatient (CLI) | payer OTHER, MEDICAID | LOC: M RAD 09:17 | DX: I87.301 Chronic venous hypertension (idiopathic) without complications of right lower extremity (principal) | CPT/HCPCS: 93971 ==

== ENCOUNTER → 2017-11-19 | Outpatient (CLI) | payer OTHER | LOC: M RAD 10:36 | DX: Z12.2 Encounter for screening for malignant neoplasm of respiratory organs (principal); Z87.891 Personal history of nicotine dependence | CPT/HCPCS: G0297 ==

== ENCOUNTER 2017-12-19 14:24 | Emergency (ER) | payer OTHER | END 2017-12-19 14:59 | disposition left against medical advice (07) | LOC: M ED 14:24 | DX: Z53.21 Procedure and treatment not carried out due to patient leaving prior to being seen by health care provider (principal) ==

== ENCOUNTER → 2017-12-19 | Outpatient (REF) | payer OTHER ==
[2017-12-19 19:46] LABS: INFLUENZA A AMPLIFICATION NEGATIVE (NEGATIVE); INFLUENZA B AMPLIFICATION NEGATIVE (NEGATIVE)
== END ==
LOC: M LAB REF 18:48
DX: J11.1 Influenza due to unidentified influenza virus with other respiratory manifestations (principal)
CPT/HCPCS: 87070

== ENCOUNTER → 2018-02-21 | Outpatient (REF) | payer OTHER | LOC: M SFHCPLAZ 11:19 | DX: Z00.00 Encounter for general adult medical examination without abnormal findings (principal); I10 Essential (primary) hypertension; E78.5 Hyperlipidemia, unspecified; E55.9 Vitamin D deficiency, unspecified; Z53.8 Procedure and treatment not carried out for other reasons ==

== ENCOUNTER → 2018-02-24 | Outpatient (REF) | payer OTHER ==
[~2018-02-24] MED LIST changes: +CIPR-249 PO; -VITA1CAP40 PO; +VITA50005 PO
[2018-02-24 12:25] LABS: HEMATOCRIT 43.5 % (36.0-47.0); HEMOGLOBIN 13.7 g/dl (12.0-15.5); MEAN CORPUSCULAR HEMOGLOBIN 28.8 pg (27.0-33.0); MEAN CORPUSCULAR HGB CONC 31.5 g/dl (32.0-36.5); MEAN CORPUSCULAR VOLUME 91.6 fl (80.0-96.0); PLATELET COUNT, AUTOMATED 310 10^3/uL (150-450); RED BLOOD COUNT 4.75 10^6/uL (4.00-5.40); WHITE BLOOD COUNT 4.9 10^3/uL (4.0-10.0)
[2018-02-24 12:34] LABS: ALBUMIN 3.4 GM/DL (3.2-5.2); BILIRUBIN,TOTAL 0.3 MG/DL (0.2-1.0); CALCIUM LEVEL 8.5 MG/DL (8.8-10.2); CHOLESTEROL RISK RATIO 3.617 (<5); CREATININE FOR GFR 1.1 MG/DL (0.55-1.30); GLOMERULAR FILTRATION RATE 52.1 (>39); POTASSIUM SERUM 4.6 MEQ/L (3.5-5.1); TOTAL PROTEIN 7.5 GM/DL (6.4-8.2)
[2018-02-24 12:37] LABS: TOTAL 25(OH) VITAMIN D 42.4 NG/ML (30.0-100.0)
== END ==
LOC: M SFHCPLAZ 08:45
PROVIDERS: ATTEND Nurse Practitioner Family
DX: I10 Essential (primary) hypertension (principal); E78.5 Hyperlipidemia, unspecified; E55.9 Vitamin D deficiency, unspecified

== ENCOUNTER → 2018-06-16 | Outpatient (REF) | payer MEDICARE, MEDICAID ==
[~2018-06-16] MED LIST changes: -NORC1TAB4 PO; +NORC1TAB7 PO
[2018-06-16 19:04] LABS: CREATININE FOR GFR 1.04 MG/DL (0.55-1.30); GLOMERULAR FILTRATION RATE 55.6 (>39); POTASSIUM SERUM 4.4 MEQ/L (3.5-5.1)
== END ==
LOC: M SFHCPLAZ 15:03
PROVIDERS: ATTEND Family Medicine
DX: I12.9 Hypertensive chronic kidney disease with stage 1 through stage 4 chronic kidney disease, or unspecified chronic kidney disease (principal); N18.3 Chronic kidney disease, stage 3 (moderate)
CPT/HCPCS: 36415; 80048; G0463

== ENCOUNTER 2019-02-17 15:19 | Emergency (ER) | payer MEDICARE, MEDICAID ==
[~2019-02-17] VITALS: Ht 160 cm; Wt 81.8 kg
[2019-02-17 15:19] VITALS: BP 166/79
--- NOTE | 2019-02-17 17:15 | REPVR ---
PROCEDURE INFORMATION: Exam: US Duplex Right Lower Extremity Veins, Limited Exam date and time: 02/17/2019 5:10 PM Age: 73 years old Clinical history: Swelling (edema) of limb; Lower extremity, right; Additional info: Right leg swelling TECHNIQUE: Imaging protocol: Real-time Duplex ultrasound of the Right Lower Extremity with 2-D quintana scale, color Doppler flow and spectral waveform analysis with image documentation. Limited exam was focused on the right lower extremity veins. COMPARISON: US Duplex, Ext,LOWER veins,unilat 11/12/2017 9:51 AM FINDINGS: Right deep veins: Unremarkable. The common femoral, femoral, proximal profunda femoral and popliteal veins are patent without thrombus. Normal Doppler waveforms. Normal compressibility and/or augmentation response. Right superficial veins: Unremarkable. Saphenofemoral junction is patent without thrombus. Soft tissues: Lower leg edema. IMPRESSION: Lower leg edema. No DVT. Electronically signed by: Willy Nowak On 02/17/2019 17:14:44 PM
[2019-02-17 17:52] LABS: HEMATOCRIT 45.8 % (36.0-47.0); HEMOGLOBIN 14.8 g/dl (12.0-15.5); MEAN CORPUSCULAR HGB CONC 32.3 g/dl (32.0-36.5); MEAN CORPUSCULAR VOLUME 92.7 fl (80.0-96.0); PLATELET COUNT, AUTOMATED 338 10^3/uL (150-450); RED BLOOD COUNT 4.94 10^6/uL (4.00-5.40)
[2019-02-17 18:11] LABS: APPEARANCE, URINE CLEAR (CLEAR); BACTERIA, URINE AUTO NEGATIVE (NEGATIVE); BILIRUBIN, URINE AUTO NEGATIVE (NEGATIVE); BLOOD, URINE BLOOD 1+ (NEGATIVE); COLOR, URINE STRAW (YELLOW); GLUCOSE, URINE (UA) AUTO NEGATIVE (NEGATIVE); KETONE, URINE AUTO TRACE mg/dL (NEGATIVE); LEUKOCYTE ESTERASE, URINE AUTO 2+ (NEGATIVE); NITRITE, URINE AUTO NEGATIVE (NEGATIVE); PROTEIN, URINE AUTO NEGATIVE (NEGATIVE); RBC, URINE AUTO 1 /HPF (0-3); SPECIFIC GRAVITY URINE AUTO 1.003 (1.002-1.035); SQUAMOUS EPITHELIAL CELL UR AU 0 /HPF (0-6); UROBILINOGEN, URINE AUTO 0.2 mg/dL (0.0-2.0); WBC, URINE AUTO 37 /HPF (0-3)
[2019-02-17 18:26] LABS: C REACTIVE PROTEIN QUANTITATIV 1.4 MG/DL (0.00-0.30); CALCIUM LEVEL 9.5 MG/DL (8.8-10.2); CREATININE FOR GFR 1.04 MG/DL (0.55-1.30); GLOMERULAR FILTRATION RATE 55.5 (>39); POTASSIUM SERUM 4.1 MEQ/L (3.5-5.1)
[2019-02-17 18:38] LABS: ERYTHROCYTE SEDIMENTATION RATE 27 mm/hr (0-30)
--- NOTE | 2019-02-17 18:45 | REPVR ---
PROCEDURE INFORMATION: Exam: US Right Non-Vascular Joint or Other Extremity Structure, Limited Lower Extremity Exam date and time: 02/17/2019 6:34 PM Age: 73 years old Clinical history: Edema is generalized; Lower leg; Right; Additional info: Erythema/edema to RT le, visible weeping, wound to 2nd toe TECHNIQUE: Imaging protocol: Right US Non-Vascular Joint or Other Extremity Structure. Limited exam of the lower extremity. COMPARISON: No relevant prior studies available. FINDINGS: Soft tissues: Imaging the area of clinical concern in the region of the right pretibial region through the dorsal aspect of the foot along the fourth metatarsal demonstrates gross edema without evidence of a well-defined abscess. Gross cellulitis to be considered clinically. Bones/joints: Unremarkable. IMPRESSION: Imaging the area of clinical concern in the region of the right pretibial region through the dorsal aspect of the foot along the fourth metatarsal demonstrates gross edema without evidence of a well-defined abscess. Gross cellulitis to be considered clinically. Electronically signed by: Willy Nowak On 02/17/2019 18:45:05 PM
[2019-02-17] MEDS ORDERED: BACT800T5 PO (19:37)
[2019-02-17] MEDS ORDERED: TRAM50TA2 PO (19:37)
[2019-02-17] MEDS ORDERED: MUPI2OI TOP (19:42)
[2019-02-17] MEDS ORDERED: MUPIROCIN 2% OINT 22 GM TUBE TOP ONE (19:45)
[2019-02-17] MEDS ORDERED: traMADol 50 MG TAB PO ONE (20:30)
[2019-02-17] MEDS ORDERED: BACTRIM 160MG/800MG DS TAB PO ONE (20:30)
== END 2019-02-17 20:33 | disposition home or self-care (01) ==
LOC: M ED 15:19
DX: L03.031 Cellulitis of right toe (principal); Z86.718 Personal history of other venous thrombosis and embolism; F17.200 Nicotine dependence, unspecified, uncomplicated; Z79.899 Other long term (current) drug therapy

== ENCOUNTER → 2019-03-18 | Outpatient (REF) | payer MEDICARE, MEDICAID ==
[~2019-03-18] MED LIST changes: +BACT800T5 PO; +MUPI2OI TOP; +TRAM50TA2 PO
[2019-03-18 15:38] LABS: BASO # 0.1 10^3/uL (0.0-0.2); BASO % 1.2 % (0.0-1.0); EOS # 0.4 10^3/uL (0.0-0.5); EOS % 6.8 % (0.0-3.0); HEMATOCRIT 43.9 % (36.0-47.0); HEMOGLOBIN 13.6 g/dl (12.0-15.5); LYMPH # 1.3 10^3/uL (1.5-5.0); LYMPH % 21.8 % (24.0-44.0); MEAN CORPUSCULAR HEMOGLOBIN 29.5 pg (27.0-33.0); MEAN CORPUSCULAR VOLUME 95.2 fl (80.0-96.0); MONO # 0.6 10^3/uL (0.0-0.8); MONO % 10.2 % (0.0-5.0); NEUTROPHILS # 3.4 10^3/uL (1.5-8.5); NEUTROPHILS % 59.7 % (36.0-66.0); PLATELET COUNT, AUTOMATED 343 10^3/uL (150-450); RED BLOOD COUNT 4.61 10^6/uL (4.00-5.40); WHITE BLOOD COUNT 5.8 10^3/uL (4.0-10.0)
[2019-03-18 16:07] LABS: BLOOD UREA NITROGEN 16 MG/DL (7-18); C REACTIVE PROTEIN QUANTITATIV 1.05 MG/DL (0.00-0.30); CALCIUM LEVEL 8.7 MG/DL (8.8-10.2); CARBON DIOXIDE LEVEL 29 MEQ/L (21-32); CHLORIDE LEVEL 106 MEQ/L (98-107); ERYTHROCYTE SEDIMENTATION RATE 46 mm/hr (0-30); GLUCOSE, FASTING 89 MG/DL (70-100); NT-PRO BNP 271 PG/ML (<125); POTASSIUM SERUM 3.9 MEQ/L (3.5-5.1); SODIUM LEVEL 140 MEQ/L (136-145)
[2019-03-18 16:08] LABS: TOTAL 25(OH) VITAMIN D 31.7 NG/ML (30.0-100.0)
[2019-03-18 16:09] LABS: VITAMIN B12 LEVEL 336 PG/ML (247-911)
== END ==
LOC: M SFHCPLAZ 14:36
PROVIDERS: ATTEND Family Medicine
DX: R60.0 Localized edema (principal); L03.115 Cellulitis of right lower limb; I12.9 Hypertensive chronic kidney disease with stage 1 through stage 4 chronic kidney disease, or unspecified chronic kidney disease; N18.3 Chronic kidney disease, stage 3 (moderate); R25.1 Tremor, unspecified; E55.9 Vitamin D deficiency, unspecified

== ENCOUNTER → 2019-04-02 | Outpatient (CLI) | payer MEDICARE, MEDICAID ==
--- NOTE | 2019-04-03 05:05 | REP ---
Clinical: Lung screening. History smoking. Comparison: 11/19/2017 Technique: Axial low-dose noncontrast images from the thoracic inlet to the upper abdomen using lung screening technique. Findings: The lung vargas are well-aerated. Two new areas of non solid ground-glass density are appreciated in the periphery of the right lobe measuring 1.8 cm (image 44) and 1.2 cm (image 57). No further consolidation, solid nodule or mass lesion is appreciated. No pleural effusion/reaction or pneumothorax. Tracheobronchial tree is patent. Mediastinum demonstrates mild atherosclerotic changes of the coronary arteries without cardiomegaly. Impression: Two new areas of non solid ground-glass density measuring up to 1.8 cm. Based on revised criteria, initial follow-up examination at 6 months is recommended. Electronically Signed by Prosper Strange MD 04/03/2019 04:57 A
== END ==
LOC: M RAD 14:11
PROVIDERS: ATTEND Family Medicine
DX: Z12.2 Encounter for screening for malignant neoplasm of respiratory organs (principal); F17.210 Nicotine dependence, cigarettes, uncomplicated

== ENCOUNTER 2019-04-21 13:52 | Inpatient (IN) | payer MEDICARE, MEDICAID ==
[~2019-04-21] VITALS: Ht 157.5 cm; Wt 61.2 kg
[2019-04-21 15:51] LABS: BASO # 0.1 10^3/uL (0.0-0.2); BASO % 0.4 % (0.0-1.0); EOS % 0.1 % (0.0-3.0); HEMATOCRIT 43.5 % (36.0-47.0); LYMPH # 0.4 10^3/uL (1.5-5.0); LYMPH % 1.8 % (24.0-44.0); MEAN CORPUSCULAR HEMOGLOBIN 29.6 pg (27.0-33.0); MEAN CORPUSCULAR HGB CONC 32.2 g/dl (32.0-36.5); MONO # 1.5 10^3/uL (0.0-0.8); MONO % 6.8 % (0.0-5.0); NEUTROPHILS # 20.5 10^3/uL (1.5-8.5); NEUTROPHILS % 89.8 % (36.0-66.0); PLATELET COUNT, AUTOMATED 406 10^3/uL (150-450); RED BLOOD COUNT 4.73 10^6/uL (4.00-5.40); WHITE BLOOD COUNT 22.8 10^3/uL (4.0-10.0)
[2019-04-21 16:26] LABS: BLOOD UREA NITROGEN 30 MG/DL (7-18); CARBON DIOXIDE LEVEL 26 MEQ/L (21-32); CHLORIDE LEVEL 97 MEQ/L (98-107); CK-MB VALUE MASS 1.3 NG/ML (<3.6); CPK CREATINE PHOSPHOKINASE 65 U/L (26-192); CREATININE FOR GFR 1.66 MG/DL (0.55-1.30); GLOMERULAR FILTRATION RATE 32.3 (>39); GLUCOSE, FASTING 134 MG/DL (70-100); POTASSIUM SERUM 3.5 MEQ/L (3.5-5.1); SODIUM LEVEL 135 MEQ/L (136-145); TROPONIN I < 0.02 NG/ML (< 0.10)
--- NOTE | 2019-04-21 16:41 | REP ---
Clinical: Cough . Comparison: 09/19/2017 . Findings: The mediastinum and cardiac silhouette are stable and within normal limits for portable technique. The lung vargas demonstrate chronic interstitial changes without acute consolidation, effusion, or pneumothorax. Skeletal structures are intact. Impression: No acute cardiopulmonary process appreciated. Electronically Signed by Prosper Strange MD 04/21/2019 04:32 P
[2019-04-21 16:56] LABS: INFLUENZA A AMPLIFICATION NEGATIVE (NEGATIVE); INFLUENZA B AMPLIFICATION NEGATIVE (NEGATIVE)
[2019-04-21] MEDS ORDERED: HEPARIN DRIP 25,000 UNITS in IV 1 EA IV SCH ×2 (18:06→22:59)
[2019-04-21] MEDS ORDERED: HEPARIN SOD (PORCINE) 5000 UNITS/ML VIAL (J1644 PER 1000UNITS) IV ONE (18:15)
--- NOTE | 2019-04-21 18:19 | REPVR ---
PROCEDURE INFORMATION: Exam: CT Chest Without Contrast Exam date and time: 04/21/2019 5:27 PM Age: 73 years old Clinical indication: Cough; Additional info: Cough, syncope, leukocytosis TECHNIQUE: Imaging protocol: Computed tomography of the chest without contrast. 3D rendering: MIP and/or 3D reconstructed images were created by the technologist. Radiation optimization: All CT scans at this facility use at least one of these dose optimization techniques: automated exposure control; mA and/or kV adjustment per patient size (includes targeted exams where dose is matched to clinical indication); or iterative reconstruction. COMPARISON: CR PORTABLE CHEST X-RAY 04/21/2019 4:26 PM FINDINGS: Thyroid: Normal appearing thyroid. Lungs: There is some stranding density in the lung bases consistent with scarring. Pleural space: Unremarkable. No pneumothorax. No pleural effusion. Heart: Unremarkable. No cardiomegaly. No pericardial effusion. Aorta: There is calcification of the aortic arch consistent with atherosclerotic changes. Lymph nodes: There is no evidence of significant lymphadenopathy. Liver: Small low-density cysts of the right lobe of the liver. Adrenals: There is some diffuse enlargement of the left adrenal gland possibly hypertrophy. Bones/joints: There is no evidence of bony abnormality. There is mild anterior osteophyte formation of the thoracic spine. Soft tissues: Unremarkable. IMPRESSION: 1. Mild scarring in the lung bases. 2. Calcification and atherosclerotic change of the aortic arch. Electronically signed by: Ramin Carlton On 04/21/2019 18:18:45 PM
[2019-04-21] MEDS ORDERED: CHLO25TA PO (18:24)
[2019-04-21 18:26] LABS: INR 1.25; PARTIAL THROMBOPLASTIN TIME 32.9 SECONDS (25.0-38.4); PROTHROMBIN TIME 15.4 SECONDS (11.8-14.0)
--- NOTE | 2019-04-21 18:33 | REPVR ---
PROCEDURE INFORMATION: Exam: US Duplex Lower Extremity Veins Exam date and time: 04/21/2019 5:52 PM Age: 73 years old Clinical indication: Pain; Leg, upper; Bilateral; Additional info: Syncope TECHNIQUE: Imaging protocol: Real-time duplex ultrasound of the Lower Extremities with 2-D quintana scale, color Doppler flow and spectral waveform analysis with image documentation. Complete exam focused on the bilateral lower extremity veins. COMPARISON: US Duplex, Ext,LOWER veins,unilat 02/17/2019 4:55 PM FINDINGS: Right side: There is acute thrombus distending and including the right common femoral vein. There is occluding thrombus within the femoral vein through thigh and also the popliteal vein. Left side: There is distention of the left common femoral vein with thrombus. Occluding thrombus is noted of the femoral vein through the left thigh and also the who popliteal vein. There is soft tissue swelling throughout the legs. Who who IMPRESSION: Extensive acute thrombus filling the right and left common femoral vein, femoral vein and popliteal vein. Electronically signed by: Ramin Carlton On 04/21/2019 18:33:20 PM
--- NOTE | 2019-04-21 20:08 | ECGEPIP ---
[facility] - ED Test Date: 2019-04-21 Pat Name: FEMI GUARDADO Department: Room: - Gender: Female Director Medical Writing: ELANA : 1945 Requested By: PEPE Momin Order Number: [id number] Reading MD: Daiana Santos Measurements Intervals [place] Rate: 106 P: 71 IA: 144 QRS: 26 QRSD: 100 T: 62 QT: 346 QTc: 460 Interpretive Statements SINUS TACHYCARDIA INCOMPLETE RIGHT BUNDLE BRANCH BLOCK MINIMAL ST DEPRESSION ABNORMAL RHYTHM ECG INCREASED RATE 09/20/17 Electronically Signed on 04-21-2019 20:07:44 EST by Daiana Santos
--- NOTE | 2019-04-21 20:26 | HPEPDOC ---
General Date of Admission 04/21/19 Date of Service: Apr 21, 2019 Chief Complaint The patient is a 73-year-old female admitted with a reason for visit of Syncope. Source: Patient, Family Exam Limitations: No limitations Timing/Duration: 4-6 hours, Week(s) Severity: Mild, Moderate Associated Symptoms: Syncope History of Present Illness Patient is 73 years old female with past history of DVT not on any anticoagulation due to previous GI bleed, hypertension, hyperlipidemia, active smoker presented to the hospital with history of syncope. Patient stated that today a few hours ago in the bathroom she developed loss of consciousness for a few minutes, patient doesn't have any recollection of the event. According to family members she was pale, not any seizure activity. Of note, she has been recently received intensified antihypertensive regimen with diuretics. Also according to family members she has been having increased cough with yellowish sputum production. Its been noticed that her left distal leg swollen and right toe has unhealed wound with black color. In emergency room patient was found to have leukocytosis of 22, creatinine of 1.6, DVT ultrasound was done and showed extensive acute thrombus filling the right and left common femoral vein, femoral vein through the thigh and popliteal vein. Heparin drip was initiated. Patient denied fever, nausea or vomiting, any chest pain, shortness of breath, diarrhea or dysuria Home Medications Scheduled Chlorthalidone (Chlorthalidone) 25 Mg Tablet, 12.5 MG PO DAILY, (Reported) Allergies Coded Allergies: No Known Allergies (Unverified , 04/21/19) Past Medical History Medical History Hypertension, hyperlipidemia, glaucoma, history of DVT in 2017, STAGE 3 CHRONIC KIDNEY DISEASE , MORBID (SEVERE) OBESITY Surgical History BILATERAL CATARACTS 2004 COLONOSCOPY - 2 HYPERPLASTIC POLYPS REMOVED; DIVERTICULOSIS; DR. HOWARD 11/2016 Family History FATHER: MOTHER: SIBLINGS: SISTER HAS KIDNEY FAILURE DUE TO AN INFECTION 1 SISTER(S) . 4 SON(S) , 2 DAUGHTER(S) - HEALTHY. DENIES KNOWN FAMILY HISTORY OF COLON CANCER OR BREAST CANCER. Social History * Smoker: current smoker, greater than 1 pack/day Alcohol: Denies Drugs: denies A-FIB/CHADSVASC A-FIB History Current/History of A-Fib/PAF?: No Current PO Anticoag Therapy: No Review of Systems Constitutional: Denies: Fever, Malaise Eyes: Denies: Pain ENT: Denies: Head Aches, Ear Pain Skin: Reports: Lesions; Denies: Rash Pulmonary: Denies: Dyspnea Cardiovascular: Denies: Chest Pain, Palpitations Gastrointestinal: Denies: Nausea, Vomiting Genitourinary: Denies: Dysuria, Frequency Hematologic: Denies: Bleeding Excessively Endocrine: Denies: Polydipsia Musculoskeletal: Reports: Other Symptoms (left leg swelling, unhealed wound of right toe) Neurological: Denies: Weakness, Numbness Psych: Reports: Mood Normal Physical Examination General Exam: Positive: Alert, Cooperative Eye Exam: Positive: PERRLA ENT Exam: Positive: Atraumatic Neck Exam: Positive: Supple; Negative: JVD Chest Exam: Positive: Rhonchi, Diminished; Negative: Clear to auscultation Heart Exam: Positive: Rate Normal Telemetry: Positive: No significant arrhythmia Abdomen Exam: Positive: Normal bowel sounds Extremity Exam: Positive: Clubbing, Edema, Swelling (left distal leg), Other (blackish unhealed wound of second right toe); Negative: Cyanosis Skin Exam: Positive: Nl turgor and temperature Neuro Exam: Positive: Cranial Nerves 3-12 NL Psych Exam: Positive: Mental status NL Vital Signs Vital Signs Date Time Temp Pulse Resp B/P (MAP) Pulse Ox O2 Delivery O2 Flow Rate FiO2 04/21/19 19:21 99.4 04/21/19 19:00 79 108/47 (67) 95 Room Air 04/21/19 16:15 18 Laboratory Data Labs 24H Laboratory Tests 2 04/21/19 14:36: Bedside Glucose (Misc Panel) 186H 04/21/19 15:23: Prothrombin Time 15.4H, Prothromb Time International Ratio 1.25, Activated Partial Thromboplast Time 32.9 04/21/19 15:31: Immature Granulocyte % (Auto) 1.1, Neutrophils (%) (Auto) 89.8H, Lymphocytes (%) (Auto) 1.8L, Monocytes (%) (Auto) 6.8H, Eosinophils (%) (Auto) 0.1, Basophils (%) (Auto) 0.4, Neutrophils # (Auto) 20.5H, Lymphocytes # (Auto) 0.4L, Monocytes # (Auto) 1.5H, Eosinophils # (Auto) 0.0, Basophils # (Auto) 0.1, Nucleated Red Blood Cells % (auto) 0.0, Anion Gap 12, Glomerular Filtration Rate 32.3L, Calcium Level 9.0, Total Creatine Kinase 65, Creatine Kinase MB 1.3, Creatine Kinase MB Relative Index 2.00, Troponin I < 0.02, Thyroid Stimulating Hormone (TSH) 3.020 04/21/19 16:18: Influenza Type A (RT-PCR) NEGATIVE, Influenza Type B (RT-PCR) NEGATIVE CBC/BMP Laboratory Tests 04/21/19 15:31 Microbiology Microbiology 04/21/19 Blood Culture, Received Pending 04/21/19 Blood Culture, Received Pending Assessment/Plan Patient is 73 years old female with past history of DVT not on any anticoagulation due to previous GI bleed, hypertension, hyperlipidemia, active s moker presented to the hospital with history of syncope. She has been recently received intensified antihypertensive regimen with diuretics. Also according to family members she has been having increased cough with yellowish sputum production. Its been noticed that her left distal leg swollen and right toe has unhealed wound with black color. In emergency room patient was found to have leukocytosis of 22, creatinine of 1.6, DVT ultrasound was done and showed extensive acute thrombus filling the right and left common femoral vein, femoral vein through the thigh and popliteal vein. Heparin drip was initiated. Problems (1) Sepsis Status: Acute Problem Text: Pt has leucocytosis and LA Most likely secondary to right toe unhealed wound. There is concern for gangrene I started meropenem and vancomycin IV Consider health outreach worker consult in the morning IV fluid Wound culture, blood culture We'll proceed with MRI of right foot (2) Syncope Status: Acute Problem Text: Most likely multifactorial secondary to pulmonary emboli, dehydration, antihypertensive medications, infection Telemetry Echo Orthostatic vital signs (3) Hypertension Status: Chronic Problem Text: Continue cardioprotective medication Currently blood pressures under control, patient is not hypotensive (4) COPD (chronic obstructive pulmonary disease) with acute bronchitis Status: Acute Problem Text: Patient is active smoker, up to 3 packs a day Patient complains of increased cough and yellowish sputum CT chest negative for pneumonia Inhalers, antibiotics (5) DVT, bilateral lower limbs Status: Acute Problem Text: pulsation intact of both feet CTA was not done due to JIM DVT ultrasound was done and showed extensive acute thrombus filling the right and left common femoral vein, femoral vein through the thigh and popliteal vein Patient did have previous DVT, however she wasn't on anticoagulation therapy due to GI bleed Heparin drip started Consider vascular surgeon consult for possible thrombolysis, (6) JIM (acute kidney injury) Status: Acute Problem Text: Acute on chronic, most likely secondary to dehydration IV fluid Continue to monitor Plan / VTE VTE Prophylaxis Ordered?: Yes CHERRY LATHMA DO Apr 21, 2019 20:26
[2019-04-21] MEDS ORDERED: POTASSIUM CHLORIDE 10 MEQ SR TABLET PO ONE (20:30)
[2019-04-21] MEDS ORDERED: IPRATROPIUM 0.5MG/ALBUTEROL 2.5MG INH SOL UD 3ML (DUONEB)(J7620) NEB PRN (20:45)
[2019-04-21] MEDS ORDERED: OMEPRAZOLE 20 MG CAP PO ONE (21:00)
[2019-04-21 21:48] VITALS: BP 120/82
--- NOTE | 2019-04-21 22:16 | REPVR ---
PROCEDURE INFORMATION: Exam: MR Right Lower Extremity Without Contrast; Forefoot Exam date and time: 04/21/2019 8:04 PM Age: 73 years old Clinical indication: Cellulitis; Toes; Right; Patient HX: Attn 2nd toe, open wound base 2nd toe; Additional info: Osteomyelitis TECHNIQUE: Imaging protocol: MR of the Right foot without intravenous contrast. Exam focused on the forefoot. COMPARISON: US EXTREMITY NON VASCUL LIMITED 02/17/2019 6:07 PM FINDINGS: Bones, joints, and cartilage: Mild bone marrow edema in the second toe distal phalanx without associated destructive changes. Mild degenerative changes in the intertarsal joints. No fracture or destructive bone lesions. Joint effusion: No joint effusion. Muscles: Intramuscular edema in the posterior compartment musculature of the distal foreleg. Mild intramuscular edema in the intrinsic foot musculature. Plantar fascia: Mild thickening of the posterior medial band of the plantar fascia. Soft tissues: Small ganglion cyst arising from the anteromedial ankle joint. Subcutaneous edema in the plantar calcaneal soft tissues. No abscess or fluid collection. Mild soft tissue edema in the second toe. IMPRESSION: 1. Mild marrow edema in the second toe distal phalanx with surrounding soft tissue edema may be secondary to cellulitis and reactive marrow edema. No destructive changes are seen to indicate osteomyelitis. 2. Degenerative changes as above. 3. Mild plantar fasciitis. 4. Intramuscular edema maybe secondary to denervation or muscle strain. Electronically signed by: Jeffery Worthington On 04/21/2019 22:16:38 PM
[2019-04-21] MEDS: MEROPENEM INJ 1 GM in IV 1 EA IV SCH (22:53)
[2019-04-21] MEDS: NS 1,000 ML IV SCH (22:53)
--- NOTE | 2019-04-21 23:29 | PHACANCOPD ---
PHARMACY VANCOMYCIN DOSING Pt Demographics Demographics Patient Age:73 , Weight:85.450 , Gender: female Adjusted Body Weight Date: 04/21/19, Adjusted Body Weight: Kg Events Past 24 Hours Events Past 24 Hours: NO: Dialysis, Diuretic Therapy, Change in CrCl, Fever, Elevation in WBC, Pending Diagnostics, Pending Procedures, Other Vancomycin Vancomycin Target Ranges: 15-20 mcg/ml Vancomycin Load Y/N: Yes Load Dose Date Time Vancomycin Load Dose: 1750mg Date: 04-22 Time: 0000 Vancomycin Dose Date: 04/21/19. Current Vancomycin Dose: [1000mg q24h] Intermittent Dosing?: No Labs Labs Item Value Date Time White Blood Count 22.8 10^3/uL H 04/21/19 1531 Glomerular Filtration Rate 32.3 L 04/21/19 1531 Creatinine 1.66 MG/DL H 04/21/19 1531 Blood Urea Nitrogen 30 MG/DL H 04/21/19 1531 Vital Signs Label Value Date Time Patient Temperature 98.6 degrees F 04/21/192147 Temperature Source Temporal 04/21/192147 Micro Microbiology 04/21/19 Wound Culture, Received Pending 04/21/19 Blood Culture, Received Pending 04/21/19 Blood Culture, Received Pending Creatinine Clearance Date:04/21/19. Creatinine Clearance: [26]. Pending Labs Trough 04/23 @2300 Assessment and Plan Maintaining Current Dose?: Yes Reason for dose change: No Dose Change Pharmacist Note Pharmacist Note Date: 04/21/19. Pharmacist note:Will monitor and make adjustments as needed. LEIDA ORTEGA [facility] Apr 21, 2019 23:29
[2019-04-21 23:59] VITALS: BP 129/59
[2019-04-22] MEDS: VANCOMYCIN HCL 1,000 MG, VIAL MATE ADAPTER 1 EACH in D5W 250 ML IV SCH (00:58)
[2019-04-22] MEDS: NYSTATIN 100,000 UNITS/GM TOPICAL PWD 15 GM TOP SCH ×3 (00:58→19:54)
[2019-04-22] MEDS ORDERED: VANCOMYCIN HCL 750 MG, VIAL MATE ADAPTER 1 EACH in D5W 250 ML IV ONE (01:00)
[2019-04-22 04:00] VITALS: BP_SYST 132; BP_SYST 196; BP_DIAS 61; BP_DIAS 80
[2019-04-22] MEDS: NS 1,000 ML IV SCH ×3 (04:57→19:55)
[2019-04-22 05:53] LABS: HEMATOCRIT 35.7 % (36.0-47.0); MEAN CORPUSCULAR HEMOGLOBIN 29.5 pg (27.0-33.0); MEAN CORPUSCULAR HGB CONC 32.2 g/dl (32.0-36.5); MEAN CORPUSCULAR VOLUME 91.5 fl (80.0-96.0); PLATELET COUNT, AUTOMATED 358 10^3/uL (150-450); WHITE BLOOD COUNT 12.5 10^3/uL (4.0-10.0)
[2019-04-22 06:00] LABS: HEMOGLOBIN 11.5 g/dl (12.0-15.5)
[2019-04-22] MEDS ORDERED: FLUBLOK(EGG FREE)(QUAD)INFLUENZA VACC 0.5ML SYRINGE (90682)18YRS&OLDER IM ONE (06:00)
[2019-04-22 06:30] LABS: ALBUMIN 2.1 GM/DL (3.2-5.2); BILIRUBIN,TOTAL 0.5 MG/DL (0.2-1.0); CALCIUM LEVEL 8.6 MG/DL (8.8-10.2); CREATININE FOR GFR 1.4 MG/DL (0.55-1.30); GLOMERULAR FILTRATION RATE 39.4 (>39); MAGNESIUM LEVEL 2.2 MG/DL (1.8-2.4); POTASSIUM SERUM 3.2 MEQ/L (3.5-5.1); TOTAL PROTEIN 6.6 GM/DL (6.4-8.2)
[2019-04-22 08:00] VITALS: BP 144/65
[2019-04-22] MEDS ORDERED: HEPARIN DRIP 25,000 UNITS in IV 1 EA IV SCH ×4 (08:05)
[2019-04-22] MEDS ORDERED: HEPARIN SOD (PORCINE) 5000 UNITS/ML VIAL (J1644 PER 1000UNITS) IV PRN (08:15)
[2019-04-22] MEDS ORDERED: HEPARIN SOD (PORCINE) 5000 UNITS/ML VIAL (J1644 PER 1000UNITS) IV ONE (08:15)
[2019-04-22] MEDS: amLODIPine 10 MG TAB PO SCH (09:13)
[2019-04-22] MEDS: ROSUVASTATIN 10 MG TAB (CRESTOR) PO SCH (09:13)
[2019-04-22] MEDS: MEROPENEM INJ 1 GM in IV 1 EA IV SCH ×2 (09:14→19:54)
--- NOTE | 2019-04-22 10:51 | CR.PDOC ---
General Date of Consultation: Apr 22, 2019 Consultation REASON FOR CONSULTATION/CHIEF COMPLAINT: [DVT and right toe gangrene]. HISTORY OF PRESENT ILLNESS: [Patient is a 73yo female smoker with HTN, h/o DVT and GI bleed who presented to the ED with loss of consciousness and feeling unwell for over a week. Patient states she has noticed over the past few months, occasional pains in the legs like a bee stinging her. She had a DVT in the right leg in 2017. She was placed on anticoagulation but developed a significant GI bleed and medication were stopped. She has noticed some recent swelling in the legs but this was improved with newly started hypertensive meds. The wound to the right foot has been present for some time but was improving per the family. Recently, as she started feeling bad, the toe began to worsen. It is very tender to touch she states. She denies claudication but has not been very active recently. She is a heavy smoker, smoking about 2.5 packs a day. She denies h/o diabetes. She did state she recently developed fever blisters and felt she had been running a fever. ]. ALLERGIES: Please see below. HOME MEDICATIONS: Please see below. PAST MEDICAL HISTORY: 1. [Hypertension]. 2. [Chronic kidney disease 3. GI bleed 4. DVT right leg]. PAST SURGICAL HISTORY: BILATERAL CATARACTS 2004 COLONOSCOPY 2016 FAMILY HISTORY: FATHER: MOTHER: SIBLINGS: SISTER HAS KIDNEY FAILURE DUE TO AN INFECTION 1 SISTER(S) . 4 SON(S) , 2 DAUGHTER(S) - HEALTHY. DENIES KNOWN FAMILY HISTORY OF COLON CANCER OR BREAST CANCER. SOCIAL HISTORY: 2.5 pack per day smoker REVIEW OF SYSTEMS: Constitutional: +fever blisters, no recorded fevers Eyes: Denies: Pain ENT: Denies: Head Aches, Ear Pain Skin: Reports: Lesions; Pulmonary: Denies: Dyspnea Cardiovascular: Denies: Chest Pain, Palpitations Gastrointestinal: Denies: Nausea, Vomiting Genitourinary: Denies: Dysuria, Frequency Hematologic: Denies: Bleeding Excessively Endocrine: Denies: Polydipsia Musculoskeletal: Reports: Other Symptoms (left leg swelling, unhealed wound of right toe) Neurological: Denies: Weakness, Numbness Psych: Reports: Mood Normal PHYSICAL EXAMINATION: VITAL SIGNS: Please see below. GENERAL APPEARANCE: [no acute distress, laying in bed comfortable]. CARDIOVASCULAR: [normal rhythm and rate, 2+ palpable DP on the left, unable to palpable pulses on the right foot, minimal edema of the left leg compared to the right ]. EXTREMITIES: [feet are warm, no pulse felt on right, able to move toes and feet, right foot - dry gangrene to the anterior surface of the 2nd toe, red discoloration of the anterior foot and ankle area ]. LABORATORY DATA: Please see below. ASSESSMENT/PLAN: 1. [Peripheral arterial disease]. 2. [Right foot gangrene 3. Bilateral lower extremity DVTs 4. Hypertension 5. Tobacco abuse - concerning the bilateral DVTs, I would recommend anticoagulation at this time. Her exam is benign and given her history of GI bleed and comorbidities, I feel she is not the best candidate for thrombolysis now. She could possibly be treated as an outpatient with Interventional Radiology to address the DVTs. - at this point, I feel the more pressing issue is her right foot. With her elevated white count, the right toe may be the source of infection. Will follow up with MRI and podiatry consult. I am concerned she has significant PAD on the right given her exam. -I have ordered arterial studies to better evaluate her arterial flow. She is higher risk for worsening kidney function with intervention with angiogram however. Will weigh and discuss with her risks vs benefits once I see her arterial study.]. Vital Signs/I&O Vital Signs Date Time Temp Pulse Resp B/P (MAP) Pulse Ox O2 Delivery O2 Flow Rate FiO2 04/22/19 09:13 75 144/65 04/22/19 08:00 98.0 16 95 Room Air I&O- Last 24 Hours up to 6 AM 04/22/19 06:00 Intake Total 1595 ml Output Total 450 ml Balance 1145 ml Laboratory Data Labs 24H Laboratory Tests 2 04/21/19 14:36: Bedside Glucose (Misc Panel) 186H 04/21/19 15:23: Prothrombin Time 15.4H, Prothromb Time International Ratio 1.25, Activated Partial Thromboplast Time 32.9 04/21/19 15:30: Lactic Acid Level 3.0*H 04/21/19 15:31: Immature Granulocyte % (Auto) 1.1, Neutrophils (%) (Auto) 89.8H, Lymphocytes (%) (Auto) 1.8L, Monocytes (%) (Auto) 6.8H, Eosinophils (%) (Auto) 0.1, Basophils (%) (Auto) 0.4, Neutrophils # (Auto) 20.5H, Lymphocytes # (Auto) 0.4L, Monocytes # (Auto) 1.5H, Eosinophils # (Auto) 0.0, Basophils # (Auto) 0.1, Nucleated Red Blood Cells % (auto) 0.0, Anion Gap 12, Glomerular Filtration Rate 32.3L, Calcium Level 9.0, Total Creatine Kinase 65, Creatine Kinase MB 1.3, Creatine Kinase MB Relative Index 2.00, Troponin I < 0.02, Thyroid Stimulating Hormone (TSH) 3.020 04/21/19 16:18: Influenza Type A (RT-PCR) NEGATIVE, Influenza Type B (RT-PCR) NEGATIVE 04/21/19 22:50: Methicillin-Resist S.aureus DNA PCR NOT DETECTED 04/22/19 01:18: Activated Partial Thromboplast Time 77.7H, Lactic Acid Followup at 4 Hours 1.3 04/22/19 03:45: Urine Color YELLOW, Urine Appearance CLOUDYH, Urine pH 5.0, Urine Specific [place] 1.012, Urine Protein NEGATIVE, Urine Glucose (UA) NEGATIVE, Urine Ketones NEGATIVE, Urine Blood 3+H, Urine Nitrite NEGATIVE, Urine Bilirubin NEGATIVE, Urine Urobilinogen 2.0H, Urine Leukocyte Esterase 1+H, Urine WBC (Auto) 9H, Urine RBC (Auto) 42H, Urine Hyaline Casts (Auto) 7, Urine Bacteria (Auto) 1+H, Urine Squamous Epithelial Cells 4, Urine Mucus (Auto) SMALL, Urine Sperm (Auto) 04/22/19 05:37: Nucleated Red Blood Cells % (auto) 0.0, Anion Gap 6L, Glomerular Filtration Rate 39.4, Calcium Level 8.6L, Magnesium Level 2.2, Total Bilirubin 0.5, Aspartate Amino Transf (AST/SGOT) 24, Alanine Aminotransferase (ALT/SGPT) 8L, Alkaline Phosphatase 53, Total Protein 6.6, Albumin 2.1L, Albumin/Globulin Ratio 0.47L 04/22/19 06:57: CBC/BMP Laboratory Tests 04/21/19 15:31 04/22/19 05:37 Microbiology Microbiology 04/22/19 Urine Culture, Received Pending 04/21/19 Wound Culture, Received Pending 04/21/19 Blood Culture, Received Pending 04/21/19 Blood Culture, Received Pending Allergies Coded Allergies: No Known Allergies (Unverified , 04/21/19) Home Medications Scheduled Chlorthalidone (Chlorthalidone) 25 Mg Tablet, 12.5 MG PO DAILY, (Reported) JOSEPH WHITT MD Apr 22, 2019 10:51
--- NOTE | 2019-04-22 13:53 | REP ---
Clinical: Symptoms related to atherosclerotic disease and intermittent claudication including gangrenous right toe. Technique: Real time cordero scale and color Doppler evaluation of the bilateral lower extremity arterial vasculature using linear high frequency transducer. Findings: Cordero scale and color images demonstrate moderate amounts of atheromatous plaquing bilaterally. There is evidence for mild stenosis through the right mid/distal superficial femoral artery and tibioperoneal trunk as well as mild stenosis through the left mid superficial femoral artery. The bilateral distal posterior tibial arteries are occluded. Known bilateral deep venous thromboses. Peak systolic velocities (cm/sec) RIGHT LEFT Common femoral artery 173 (triphasic) 120 (triphasic) Profunda femoris 180 (biphasic) 173 (biphasic) SFA (proximal) 131 (triphasic) 161 (triphasic) SFA (mid) 186/282 (tri) 150/241 (mono) SFA (distal) 121/210 (mono) 140 (mono) Popliteal artery 78 (triphasic) 143 (monophasic) MARYCHUY (prox.) 91 (triphasic) 95 (monophasic) Tibioperoneal trunk 113/168 (mono) 95 (monophasic) TELETYPE CLERK (prox.) 104 (mono) 108 (monophasic) TELETYPE CLERK (distal) occluded occluded MARYCHUY (distal) 91 (mono) 74 (mono) Impression: Atheromatous changes with areas of stenosis as described above. Known bilateral deep venous thromboses. Electronically Signed by Prosper Strange MD 04/22/2019 01:44 P
--- NOTE | 2019-04-22 14:03 | IPNPDOC ---
Subjective Date Seen The patient was seen on 04/22/19. Subjective Chief Complaint/HPI Patient offers no new complaints at the present time, awaiting vascular and podiatry consults which been called this morning General: Denies: ROS Unobtainable, Chills, Night Sweats, Fatigue, Malaise, Normal Appetite, Other Symptoms Constitutional: Denies: Chills, Fever, Malaise, Night Sweats, Weakness, Fatigue, Weight Loss, Lethargy, Other Pulmonary: Denies: Dyspnea, Cough, Pleuritic Chest Pain, Other Symptoms Cardiovascular: Denies: Chest Pain, Palpitations, Orthopnea, Paroxysmal Noc. Dyspnea, Edema, Lt Headedness, Other Symptoms Gastrointestinal: Denies: Nausea, Vomiting, Abdominal Pain, Diarrhea, Constipation, Melena, Hematochezia, Other Symptoms Musculoskeletal: Reports: Other Symptoms; Denies: Neck Pain, Back Pain, Shoulder Pain, Arm Pain, Hand Pain, Leg Pain, Foot Pain, Joint Pain, Muscle Pain, Spasms Neurological: Denies: Weakness, Numbness, Incoordination, Change in speech, Confusion, Seizures, Other Symptoms Objective Physical Examination General Exam: Positive: Alert, Cooperative Eye Exam: Positive: PERRLA ENT Exam: Positive: Atraumatic Neck Exam: Positive: Supple; Negative: JVD Chest Exam: Positive: Rhonchi, Diminished; Negative: Clear to auscultation Heart Exam: Positive: Rate Normal Telemetry: Positive: No significant arrhythmia Abdomen Exam: Positive: Normal bowel sounds Extremity Exam: Positive: Clubbing, Edema, Swelling (left distal leg), Other (blackish unhealed wound of second right toe); Negative: Cyanosis Skin Exam: Positive: Nl turgor and temperature Neuro Exam: Positive: Cranial Nerves 3-12 NL Psych Exam: Positive: Mental status NL Assessment /Plan Problems (1) DVT, bilateral lower limbs Status: Acute Problem Text: Bilateral lower extremity occlusive DVT Vascular surgery consult with Dr. Sherman noted and appreciated Patient not a surgical candidate. Further intervention can be done with the interventional radiology service as outpatient when she is clinically stable and discharged home Continue anticoagulation with heparin at the present time Podiatry consult is pending. Await their recommendations WBC count has decreased to 12.5 with IV antibiotics and will continue the same Repeat labs in a.m. (2) Gangrene Problem Text: As above (3) JIM (acute kidney injury) Status: Acute Problem Text: Acute on chronic, most likely secondary to dehydration IV fluid Continue to monitor (4) Hypertension Status: Chronic Problem Text: Continue present meds (5) Syncope Status: Acute Problem Text: Most likely multifactorial secondary to pulmonary emboli, dehydration, antihypertensive medications, infection Telemetry Echo Orthostatic vital signs (6) COPD (chronic obstructive pulmonary disease) Status: Chronic Problem Text: Patient is active smoker, up to 3 packs a day Patient complains of increased cough and yellowish sputum CT chest negative for pneumonia Inhalers, antibiotics (7) Decubital ulcer Status: Acute Problem Text: Patient was found to have stage II an unstageable decubitus ulcers on the coccyx and a stage I decub ulcers on bilateral heels since admission. Plate to reduce pressure on the the wounds nursing as initiated wound care management and wound care consult is pending Plan/VTE VTE Prophylaxis Ordered?: Yes VS, I&O, 24H, Fishbone Vital Signs/I&O Vital Signs Date Time Temp Pulse Resp B/P (MAP) Pulse Ox O2 Delivery O2 Flow Rate FiO2 04/22/19 09:13 75 144/65 04/22/19 08:00 98.0 16 95 Room Air I&O- Last 24 Hours up to 6 AM 04/22/19 06:00 Intake Total 1595 ml Output Total 450 ml Balance 1145 ml Laboratory Data 24H LABS Laboratory Tests 2 04/21/19 14:36: Bedside Glucose (Misc Panel) 186H 04/21/19 15:23: Prothrombin Time 15.4H, Prothromb Time International Ratio 1.25, Activated Partial Thromboplast Time 32.9 04/21/19 15:30: Lactic Acid Level 3.0*H 04/21/19 15:31: Immature Granulocyte % (Auto) 1.1, Neutrophils (%) (Auto) 89.8H, Lymphocytes (%) (Auto) 1.8L, Monocytes (%) (Auto) 6.8H, Eosinophils (%) (Auto) 0.1, Basophils (%) (Auto) 0.4, Neutrophils # (Auto) 20.5H, Lymphocytes # (Auto) 0.4L, Monocytes # (Auto) 1.5H, Eosinophils # (Auto) 0.0, Basophils # (Auto) 0.1, Nucleated Red Blood Cells % (auto) 0.0, Anion Gap 12, Glomerular Filtration Rate 32.3L, Calcium Level 9.0, Total Creatine Kinase 65, Creatine Kinase MB 1.3, Creatine Kinase MB Relative Index 2.00, Troponin I < 0.02, Thyroid Stimulating Hormone (TSH) 3.020 04/21/19 16:18: Influenza Type A (RT-PCR) NEGATIVE, Influenza Type B (RT-PCR) NEGATIVE 04/21/19 22:50: Methicillin-Resist S.aureus DNA PCR NOT DETECTED 04/22/19 01:18: Activated Partial Thromboplast Time 77.7H, Lactic Acid Followup at 4 Hours 1.3 04/22/19 03:45: Urine Color YELLOW, Urine Appearance CLOUDYH, Urine pH 5.0, Urine Specific [place] 1.012, Urine Protein NEGATIVE, Urine Glucose (UA) NEGATIVE, Urine Ketones NEGATIVE, Urine Blood 3+H, Urine Nitrite NEGATIVE, Urine Bilirubin NEGATIVE, Urine Urobilinogen 2.0H, Urine Leukocyte Esterase 1+H, Urine WBC (Auto) 9H, Urine RBC (Auto) 42H, Urine Hyaline Casts (Auto) 7, Urine Bacteria (Auto) 1+H, Urine Squamous Epithelial Cells 4, Urine Mucus (Auto) SMALL, Urine Sperm (Auto) 04/22/19 05:37: Nucleated Red Blood Cells % (auto) 0.0, Anion Gap 6L, Glomerular Filtration Rate 39.4, Calcium Level 8.6L, Magnesium Level 2.2, Total Bilirubin 0.5, Aspartate Amino Transf (AST/SGOT) 24, Alanine Aminotransferase (ALT/SGPT) 8L, Alkaline Phosphatase 53, Total Protein 6.6, Albumin 2.1L, Albumin/Globulin Ratio 0.47L 04/22/19 06:57: Activated Partial Thromboplast Time 69.0H 04/22/19 10:58: Activated Partial Thromboplast Time 50.9H CBC/BMP Laboratory Tests 04/21/19 15:31 04/22/19 05:37 Microbiology Microbiology 04/22/19 Urine Culture, Received Pending 04/21/19 Wound Culture, Received Pending 04/21/19 Blood Culture, Received Pending 04/21/19 Blood Culture, Received Pending VERA DAVEY MD Apr 22, 2019 14:03
[2019-04-22] MEDS ORDERED: POTASSIUM CHLORIDE 10 MEQ SR TABLET PO ONE (15:00)
[2019-04-22] MEDS ORDERED: LIDOCAINE 1% MDV 20ML VIAL As Ordered ONE (16:31)
[2019-04-22] MEDS ORDERED: LIDOCAINE 1% MDV 20ML VIAL IM ONE (17:00)
[2019-04-22 17:56] VITALS: BP 113/68
--- NOTE | 2019-04-22 18:27 | CR ---
DATE OF CONSULTATION: 04/22/2019 ADVANCED WOUND CARE CONSULT VIA TELEMEDICINE CONSULT REQUESTED BY: Dr. Azucena Richardson regarding multiple wounds. A 75-year-old non-diabetic female with a longstanding history of smoking, frail in general evaluation, requiring assistance to get in and out of bed, feeding herself, toileting herself, who was scheduled to be evaluated at our wound clinic, but was found unresponsive at her home after showering and was taken to the emergency room. This may have been a syncopal episode, from vasodilatation with warm water, although this is not completely clear. Patient was found to have bilateral deep venous thrombosis and is on a heparin drip. This is an unusual presentation and without a history of significant trauma it raises the question for an occult malignancy and/or a hypercoagulable state. Patient's nutritional status is borderline. Patient has multiple wounds, including an incontinence dermatitis involving the buttock fold, which should be treated with Desitin applied daily. A Roho cushion would be helpful. On the right foot, dorsal aspect of the second toe, there is an open wound on the mid interphalangeal joint.. There is early hammertoe deformity present. Recent in hospital treatment by Dr. Lloyd, was to removed necrotic tissue in this area. This most likely represented ischemic changes to a chronic corn, which is an inflammatory bursa associated with a hammertoe deformity. This digit appears dusky, which raises the question of ischemic changes due to digital artery thrombosis or microemboli. There is the possibility of the loss of digit. This was communicated to the patient and a family member who wad present. Treatment at this time is a protective foam dressing and an arterial ultrasound will be obtained. A heel float boot should be also utilized to protect the right heel. Measurements of the wound are 0.5 cm x 0.5 cm with a depth of less than 0.1 cm and the base appears granulated, with granulation tissue and no deep structures seen and no exposed bone present. The left heel shows an unstageable wound with black eschar and no erythema involving the periwound. Treatment for this wound would be protection with a foam dressing. Heel float boots have been ordered for both right and left feet for offloading purposes and the left heel will have to be watched closely, as an unstageable pressure injury will often times progress to an advanced stage III and/or stage IV pressure injury. Tubigrip stockings bilaterally along with mild Trendelenburg position to address gravitational dependent edema and edema secondary to her deep venous thrombosis (DVT) should be performed. Patient's glomerular filtration rate of 39.4 is borderline and, depending upon the arterial ultrasound, the patient may need further workup to determine whether or not there is occlusive disease with embolic phenomena involving her right lower extremity. MTDD
[2019-04-22] MEDS: ACETAMINOPHEN TAB 650MG DOSE (2X325MG) PO PRN (19:54)
[2019-04-22 20:00] VITALS: BP 124/71
[2019-04-22] MEDS: HEPARIN DRIP 25,000 UNITS in IV 1 EA IV SCH (20:03)
--- NOTE | 2019-04-22 21:22 | CR ---
DATE OF CONSULTATION: 04/22/2019 REASON FOR CONSULTATION: Toe ulceration. Nedra Bledsoe is a 73-year-old female who was admitted to the hospital yesterday with loss of consciousness. She is noted to have ulceration of her right second toe. Family is at bedside and states this has been present since [place]. It has worsened over the last week. PAST MEDICAL HISTORY: Significant for: 1. Hypertension. 2. Hyperlipidemia. 3. Glaucoma. 4. History of deep venous thrombosis (DVT). 5. Stage III chronic kidney disease. 6. Obesity. ALLERGIES: No known allergies. SOCIAL HISTORY: Heavy smoker, greater than two packs per day. REVIEW OF SYSTEMS: She remained afebrile. Maximum temperature (T-max) was 99.4. LABORATORIES: Are reviewed. White blood cell count on admission was 22.8, today it is 12.5. Creatinine is 1.40 today. Wound culture is pending. Vascular ultrasound of the veins is positive for extensive thrombus of the right and left common femoral vein through the thigh and popliteal vein. The foot MRI of the right foot shows no signs of osteomyelitis. The arterial studies show stenosis through the right mid and distal superficial femoral artery (SFA), with distal posterior artery occlusion. LOWER EXTREMITY EXAMINATION: The dorsalis pedis pulse is palpable. The posterior tibial pulse is nonpalpable or Dopplerable. There is an ulceration on the right second toe over the proximal interphalangeal joint with some necrotic tissue and scabbing. There is some erythema as well as vascular discoloration surrounding this toe. ASSESSMENT: A 73-year-old female with peripheral vascular disease and right second toe ulceration. PLAN: Toe is debrided. Following an injection of 3 mL of lidocaine, the necrotic and scabbing tissue was removed, revealing relatively superficial ulceration with good bleeding. No purulent drainage. No exposed bone. This time, she has had mupirocin ointment applied with a Band-Aid. Heels have signs of stage I pressure ulcerations and these should be offloaded while in bed with two pillows. Will continue to monitor. Give her chronic kidney disease, it may be worth monitoring a day or two to see if arteriogram is necessary. She does appear to have fair enough blood flow for this wound to heel. I am not seeing suggestive gangrene to suggest that this is a primary source of infection. Other reasons should be excluded for now. Continue empiric antibiotics and await culture results.
[2019-04-23] VITALS: BP 130/58
[2019-04-23] MEDS: VANCOMYCIN HCL 1,000 MG, VIAL MATE ADAPTER 1 EACH in D5W 250 ML IV SCH (00:25)
--- NOTE | 2019-04-23 07:19 | ECHO ---
DATE OF PROCEDURE: 04/22/2009 DATE OF : 1945 AGE: 73 HEIGHT: 62 inches WEIGHT: 189 pounds BODY SURFACE AREA: 1.87 meters squared INPATIENT: U, room 3230 REFERRING PHYSICIAN: Nelson Davis MD INDICATION: Edema. MEASUREMENTS 2-D MEASUREMENTS: RV - 3.0 cm LV - 3.7 cm Septum 1.1 cm Posterior wall 1.1 cm Aortic root 3.3 cm LA - 3.2 cm LVEF 75% DOPPLER MEASUREMENTS: AV - 1.39 m/s LVOT - 1.1 m/s LVOT - 1.8 cm MV-E 68, A 89, E/A ratio 0.8 Early mitral deceleration time 246 ms E prime medial 6, A prime medial 9.6, E prime lateral 11.7 Average E/E prime ratio 7.7/PCWP - 11.4 mmHg PV - 0.8 m/s Pulmonary artery acceleration time 116 ms RVSP 41 mmHg IVC - 1.5 cm COMMENTS: Normal sinus rhythm without intraventricular conduction disturbance. Somewhat challenging study in light of the patient's body habitus, but diagnostically useful information was still obtained. Normal left ventricular size, wall thickness and hyperkinetic wall motion. Normal left atrial size with some Doppler evidence of a degree of LV diastolic dysfunction - grade 1, but currently normal estimated mean left atrial pressure (findings within normal limits for her age). Normal right heart chamber sizes and motion with Doppler evidence of mild - moderate pulmonary hypertension. Normal IVC size and collapse against an elevated central venous pressure. Mildly thickened aortic valvular apparatus without functional abnormality. Normal aortic root and ascending aortic diameters. Mild degenerative changes of the mitral valvular apparatus without inflow tract obstruction and only trace (physiologic) insufficiency. No apparent intracardiac mass or pericardial effusion. Normal appearing tricuspid valve with mild insufficiency (physiologic).
[2019-04-23] MEDS: amLODIPine 10 MG TAB PO SCH (07:43)
[2019-04-23] MEDS: ROSUVASTATIN 10 MG TAB (CRESTOR) PO SCH (07:43)
[2019-04-23] MEDS: MEROPENEM INJ 1 GM in IV 1 EA IV SCH ×2 (07:43→20:59)
[2019-04-23] MEDS: MUPIROCIN 2% OINT 22 GM TUBE TOP SCH (07:44)
[2019-04-23] MEDS: NYSTATIN 100,000 UNITS/GM TOPICAL PWD 15 GM TOP SCH ×2 (07:44→21:00)
[2019-04-23] MEDS: DIAPER RELIEF PASTE (DESITIN) 60GM TOP SCH (07:44)
[2019-04-23] MEDS: NS 1,000 ML IV SCH ×2 (07:45→18:12)
[2019-04-23 08:00] VITALS: BP 156/82
[2019-04-23] MEDS ORDERED: POTASSIUM CHLORIDE 10 MEQ SR TABLET PO ONE (08:00)
[2019-04-23 09:15] LABS: BASO # 0.1 10^3/uL (0.0-0.2); BASO % 0.7 % (0.0-1.0); EOS # 0.5 10^3/uL (0.0-0.5); HEMATOCRIT 36.4 % (36.0-47.0); HEMOGLOBIN 11.4 g/dl (12.0-15.5); LYMPH # 1.2 10^3/uL (1.5-5.0); MEAN CORPUSCULAR HEMOGLOBIN 29.2 pg (27.0-33.0); MEAN CORPUSCULAR HGB CONC 31.3 g/dl (32.0-36.5); MEAN CORPUSCULAR VOLUME 93.3 fl (80.0-96.0); MONO # 0.8 10^3/uL (0.0-0.8); MONO % 9.2 % (0.0-5.0); NEUTROPHILS # 6.3 10^3/uL (1.5-8.5); NEUTROPHILS % 70.5 % (36.0-66.0); PLATELET COUNT, AUTOMATED 397 10^3/uL (150-450); WHITE BLOOD COUNT 8.9 10^3/uL (4.0-10.0)
[2019-04-23 09:54] LABS: BLOOD UREA NITROGEN 20 MG/DL (7-18); CALCIUM LEVEL 8.3 MG/DL (8.8-10.2); CARBON DIOXIDE LEVEL 25 MEQ/L (21-32); CHLORIDE LEVEL 111 MEQ/L (98-107); CREATININE FOR GFR 0.74 MG/DL (0.55-1.30); GLOMERULAR FILTRATION RATE > 60.0 (>39); GLUCOSE, FASTING 97 MG/DL (70-100); POTASSIUM SERUM 4.2 MEQ/L (3.5-5.1); SODIUM LEVEL 143 MEQ/L (136-145)
--- NOTE | 2019-04-23 10:18 | IPNPDOC ---
Text Note Date of Service The patient was seen on 04/23/19. NOTE Reviewed the arterial study done yesterday and consultation notes. Arterial study shows only possible mild stenosis of the right SFA or popliteal. Waveforms look good with minimal changes to reflect significant disease. At this point, I recommend continued wound care and to hold off on angiogram. If the wound were to worsen or not heal, an angiogram as an outpatient could be done. VS,Fishbone, I+O VS, Fishbone, I+O Laboratory Tests 04/23/19 09:00 Vital Signs Date Time Temp Pulse Resp B/P (MAP) Pulse Ox O2 Delivery O2 Flow Rate FiO2 04/23/19 08:00 99.2 68 16 156/82 (106) 96 Room Air I&O- Last 24 Hours up to 6 AM 04/23/19 06:00 Intake Total 3220 ml Output Total 1100 ml Balance 2120 ml JOSEPH WHITT MD Apr 23, 2019 10:18
[2019-04-23 12:00] VITALS: BP 154/68
[2019-04-23] MEDS ORDERED: guaiFENesin/CODEINE SYRUP 5 ML UDC PO PRN (12:00)
[2019-04-23] MEDS ORDERED: LEVALBUTEROL 1.25 MG/0.5 ML CONCENTRATE NEB INH PRN (12:15)
--- NOTE | 2019-04-23 12:22 | IPNPDOC ---
Subjective Date Seen The patient was seen on 04/23/19. Subjective Chief Complaint/HPI Patient complaining of a cough but no shortness of breath General: Denies: ROS Unobtainable, Chills, Night Sweats, Fatigue, Malaise, Normal Appetite, Other Symptoms Constitutional: Denies: Chills, Fever, Malaise, Night Sweats, Weakness, Fatigue, Weight Loss, Lethargy, Other Eyes: Denies: Pain, Vision change, Conjunctivae inflammation, Eyelid inflammation, Redness, Other ENT: Denies: Head Aches, Ear Pain, Dysphagia, Sinus Congestion, Post Nasal Drip, Sore Throat, Epistaxis, Other Symptoms Skin: Denies: Rash, Lesions, Jaundice, Bruising, Itching, Dry, Breakdown, Nail Changes, Other Pulmonary: Reports: Cough Cardiovascular: Denies: Chest Pain, Palpitations, Orthopnea, Paroxysmal Noc. D yspnea, Edema, Lt Headedness, Other Symptoms Gastrointestinal: Denies: Nausea, Vomiting, Abdominal Pain, Diarrhea, Constipation, Melena, Hematochezia, Other Symptoms Musculoskeletal: Denies: Neck Pain, Back Pain, Shoulder Pain, Arm Pain, Hand Pain, Leg Pain, Foot Pain, Joint Pain, Muscle Pain, Spasms, Other Symptoms Neurological: Denies: Weakness, Numbness, Incoordination, Change in speech, Confusion, Seizures, Other Symptoms Objective Physical Examination ENT Exam: Positive: Atraumatic Neck Exam: Positive: Supple Chest Exam: Positive: Rhonchi, Diminished Heart Exam: Positive: Rate Normal Telemetry: Positive: No significant arrhythmia Abdomen Exam: Positive: Normal bowel sounds Extremity Exam: Positive: Clubbing, Edema, Swelling (left distal leg), Other (blackish unhealed wound of second right toe) Skin Exam: Positive: Nl turgor and temperature Neuro Exam: Positive: Cranial Nerves 3-12 NL Psych Exam: Positive: Mental status NL Assessment /Plan Problems (1) DVT, bilateral lower limbs Status: Acute Problem Text: Bilateral lower extremity occlusive DVT Vascular surgery consult with Dr. Sherman noted and appreciated Patient not a surgical candidate. Further intervention can be done with the interventional radiology service as outpatient when she is clinically stable and discharged home Continue heparin, vascular follow-up appreciated Possible angiogram as an outpatient as per Dr. Mcleod DC telemetry Transferred to [facility] (2) Gangrene Problem Text: Podiatry consult appreciated Patient had a debridement done on right second toe MRI negative for osteomyelitis, but has evidence of cellulitis Continue present antibiotics CBC, CMP in a.m. (3) JIM (acute kidney injury) Status: Acute Problem Text: Acute on chronic, most likely secondary to dehydration Renal function Improving. Continue IV fluids (4) Hypertension Status: Chronic Problem Text: Continue present meds (5) Syncope Status: Acute Problem Text: Most likely multifactorial secondary to pulmonary emboli, dehydration, antihypertensive medications, infection Telemetry Echo Orthostatic vital signs (6) COPD (chronic obstructive pulmonary disease) Status: Chronic Problem Text: Patient is active smoker, up to 3 packs a day Patient complains of increased cough and yellowish sputum CT chest negative for pneumonia Start Xopenex nebulizer every 4 hours when necessary for shortness of breath Start fluticasone 110 g 2 puffs twice a day , Robitussin before meals 10 mL by mouth every 4 hours when necessary for cough (7) Decubital ulcer Status: Acute Problem Text: Patient was found to have stage II an unstageable decubitus ul cers on the coccyx and a stage I decub ulcers on bilateral heels since admission. Dressing as per wound care recommendations PT, OT eval out of bed as tolerated, starting from today Plan/VTE VTE Prophylaxis Ordered?: Yes VS, [facility]&O[facility] Vital Signs/I&O Vital Signs Date Time Temp Pulse Resp B/P (MAP) Pulse Ox O2 Delivery O2 Flow Rate FiO2 04/23/19 08:00 99.2 68 16 156/82 (106) 96 Room Air I&O- Last 24 Hours up to 6 AM 04/23/19 05:59 Intake Total 3555 ml Output Total 1100 ml Balance 2455 ml Laboratory Data 24H LABS Laboratory Tests 2 04/22/19 19:43: Activated Partial Thromboplast Time 105.8H 04/23/19 01:33: Activated Partial Thromboplast Time 109.2H 04/23/19 09:00: Activated Partial Thromboplast Time 73.8H, Immature Granulocyte % (Auto) 0.6, Neutrophils (%) (Auto) 70.5H, Lymphocytes (%) (Auto) 13.0L, Monocytes (%) (Auto) 9.2H, Eosinophils (%) (Auto) 6.0H, Basophils (%) (Auto) 0.7, Neutrophils # (Auto) 6.3, Lymphocytes # (Auto) 1.2L, Monocytes # (Auto) 0.8, Eosinophils # (Auto) 0.5, Basophils # (Auto) 0.1, Nucleated Red Blood Cells % (auto) 0.0, Anion Gap 7L, Glomerular Filtration Rate > 60.0, Calcium Level 8.3L, Random Vancomycin Level 19.7 CBC/BMP Laboratory Tests 04/23/19 09:00 Microbiology Microbiology 04/22/19 Gram Stain - Final, Resulted 04/22/19 Sputum Culture, Resulted Pending 04/22/19 Urine Culture - Final, Complete 04/21/19 Wound Culture, Received Pending 04/21/19 Blood Culture - Preliminary, Resulted No growth after 24 hours . All specim... 04/21/19 Blood Culture - Preliminary, Resulted No growth after 24 hours . All specim... VERA DAVEY MD Apr 23, 2019 12:22
[2019-04-23] MEDS: FLUTICASONE HFA 110 MCG 12 GM INHALER (FLOVENT) INH SCH ×2 (13:26→19:34)
[2019-04-23 15:05] VITALS: BP 112/73
[2019-04-23] MEDS: ACETAMINOPHEN TAB 650MG DOSE (2X325MG) PO PRN (15:25)
[2019-04-23] MEDS ORDERED: VANCOMYCIN HCL 1,000 MG, VIAL MATE ADAPTER 1 EACH in D5W 250 ML IV SCH (16:00)
[2019-04-23] MEDS: HEPARIN DRIP 25,000 UNITS in IV 1 EA IV SCH (19:53)
[2019-04-23 21:28] LABS: INR 1.17; PROTHROMBIN TIME 14.7 SECONDS (11.8-14.0)
[2019-04-23 21:30] LABS: PARTIAL THROMBOPLASTIN TIME 70.1 SECONDS (25.0-38.4)
[2019-04-23 22:00] VITALS: BP 122/44
[2019-04-24] MEDS: NS 1,000 ML IV SCH ×3 (03:26→20:56)
[2019-04-24 06:00] VITALS: BP 120/48
[2019-04-24 06:50] LABS: BASO # 0.1 10^3/uL (0.0-0.2); BASO % 0.7 % (0.0-1.0); EOS # 0.5 10^3/uL (0.0-0.5); EOS % 5.8 % (0.0-3.0); HEMATOCRIT 36.3 % (36.0-47.0); HEMOGLOBIN 11.8 g/dl (12.0-15.5); LYMPH # 1.5 10^3/uL (1.5-5.0); LYMPH % 17.2 % (24.0-44.0); MEAN CORPUSCULAR HGB CONC 32.5 g/dl (32.0-36.5); MEAN CORPUSCULAR VOLUME 92.4 fl (80.0-96.0); MONO # 0.8 10^3/uL (0.0-0.8); MONO % 9.6 % (0.0-5.0); NEUTROPHILS # 5.7 10^3/uL (1.5-8.5); NEUTROPHILS % 66.1 % (36.0-66.0); PLATELET COUNT, AUTOMATED 421 10^3/uL (150-450); RED BLOOD COUNT 3.93 10^6/uL (4.00-5.40); WHITE BLOOD COUNT 8.6 10^3/uL (4.0-10.0)
[2019-04-24 07:05] LABS: INR 1.18; PROTHROMBIN TIME 14.8 SECONDS (11.8-14.0)
[2019-04-24] MEDS: FLUTICASONE HFA 110 MCG 12 GM INHALER (FLOVENT) INH SCH ×2 (07:26→20:03)
[2019-04-24 07:28] LABS: ALBUMIN 2.1 GM/DL (3.2-5.2); ALT/SGPT 11 U/L (12-78); BILIRUBIN,TOTAL 0.5 MG/DL (0.2-1.0); BLOOD UREA NITROGEN 12 MG/DL (7-18); CALCIUM LEVEL 8.5 MG/DL (8.8-10.2); CARBON DIOXIDE LEVEL 27 MEQ/L (21-32); CHLORIDE LEVEL 108 MEQ/L (98-107); CREATININE FOR GFR 0.66 MG/DL (0.55-1.30); GLOMERULAR FILTRATION RATE > 60.0 (>39); GLUCOSE, FASTING 86 MG/DL (70-100); POTASSIUM SERUM 4.5 MEQ/L (3.5-5.1); SODIUM LEVEL 142 MEQ/L (136-145); TOTAL PROTEIN 5.9 GM/DL (6.4-8.2)
[2019-04-24] MEDS: MEROPENEM INJ 1 GM in IV 1 EA IV SCH (09:16)
[2019-04-24] MEDS: ROSUVASTATIN 10 MG TAB (CRESTOR) PO SCH (09:17)
[2019-04-24] MEDS: NYSTATIN 100,000 UNITS/GM TOPICAL PWD 15 GM TOP SCH ×2 (09:17→20:56)
[2019-04-24] MEDS: amLODIPine 10 MG TAB PO SCH (09:17)
[2019-04-24] MEDS: DIAPER RELIEF PASTE (DESITIN) 60GM TOP SCH (09:18)
[2019-04-24] MEDS: MUPIROCIN 2% OINT 22 GM TUBE TOP SCH (09:18)
[2019-04-24] MEDS: APIXABAN 5 MG TAB (ELIQUIS) PO SCH ×2 (12:30→20:55)
--- NOTE | 2019-04-24 12:31 | IPNPDOC ---
Subjective Date Seen The patient was seen on 04/24/19. Subjective Chief Complaint/HPI Patient is much comfortable today, physical therapy in progress, decreased cough and shortness of breath General: Denies: ROS Unobtainable, Chills, Night Sweats, Fatigue, Malaise, Normal Appetite, Other Symptoms Constitutional: Denies: Chills, Fever, Malaise, Night Sweats, Weakness, Fatigue, Weight Loss, Lethargy, Other Eyes: Denies: Pain, Vision change, Conjunctivae inflammation, Eyelid inflammation, Redness, Other Pulmonary: Denies: Dyspnea, Cough, Pleuritic Chest Pain, Other Symptoms Cardiovascular: Denies: Chest Pain, Palpitations, Orthopnea, Paroxysmal Noc. Dyspnea, Edema, Lt Headedness, Other Symptoms Gastrointestinal: Denies: Nausea, Vomiting, Abdominal Pain, Diarrhea, Constipation, Melena, Hematochezia, Other Symptoms Musculoskeletal: Denies: Neck Pain, Back Pain, Shoulder Pain, Arm Pain, Hand Pain, Leg Pain, Foot Pain, Joint Pain, Muscle Pain, Spasms, Other Symptoms Neurological: Denies: Weakness, Numbness, Incoordination, Change in speech, Confusion, Seizures, Other Symptoms Objective Physical Examination ENT Exam: Positive: Atraumatic Neck Exam: Positive: Supple Chest Exam: Positive: Rhonchi, Diminished Heart Exam: Positive: Rate Normal Telemetry: Positive: No significant arrhythmia Abdomen Exam: Positive: Normal bowel sounds Extremity Exam: Positive: Clubbing, Edema, Other (dressing is right foot) Skin Exam: Positive: Nl turgor and temperature Neuro Exam: Positive: Cranial Nerves 3-12 NL Assessment /Plan Problems (1) DVT, bilateral lower limbs Status: Acute Problem Text: Bilateral lower extremity occlusive DVT Vascular surgery consult with Dr. Sherman noted and appreciated Patient not a surgical candidate. Further intervention can be done with the interventional radiology service as outpatient when she is clinically stable and discharged home Will DC IV heparin Start also request 10 mg by mouth twice a day for 7 days, then 5 mg by mouth twice a day No further vascular workup has been scheduled on recommended Physical therapy in progress Vascular surgery and podiatry follow-ups appreciated (2) Gangrene Problem Text: Podiatry consult appreciated Patient had a debridement done on right second toe MRI negative for osteomyelitis, but has evidence of cellulitis DC IV antibiotics Start Augmentin 875 mg by mouth twice a day as patient is afebrile, WBC count is essentially within normal limits, so we will de-escalate antibiotics to by mouth (3) JIM (acute kidney injury) Status: Acute Problem Text: Acute on chronic, most likely secondary to dehydration Patient's renal functions have improved current BUN is 12, creatinine 0.66 Patient is a good oral intake of fluids. We will DC IV fluids (4) Hypertension Status: Chronic Problem Text: Continue present meds (5) Syncope Status: Acute Problem Text: Most likely multifactorial secondary to pulmonary emboli, deh ydration, antihypertensive medications, infection Telemetry Echo Orthostatic vital signs (6) COPD (chronic obstructive pulmonary disease) Status: Chronic Problem Text: Patient is active smoker, up to 3 packs a day Patient complains of increased cough and yellowish sputum CT chest negative for pneumonia Patient responding very well to Xopenex and prednisone Will continue the same current treatment as well as fluticasone as per orders Again counseling regarding smoking cessation was done and all the risks of smoking were explained to patient She declined any nicotine gum, nicotine patch at the present time (7) Decubital ulcer Status: Acute Problem Text: Patient was found to have stage II an unstageable decubitus ulcers on the coccyx and a stage I decub ulcers on bilateral heels present since admission Dressing as per wound care recommendations PT, OT in progress Plan/VTE VTE Prophylaxis Ordered?: Yes VS, I&O, 24H, Fishbone Vital Signs/I&O Vital Signs Date Time Temp Pulse Resp B/P (MAP) Pulse Ox O2 Delivery O2 Flow Rate FiO2 04/24/19 09:17 84 123/53 04/24/19 06:00 98.1 20 94 Room Air I&O- Last 24 Hours up to 6 AM 04/24/19 06:00 Intake Total 2122 ml Output Total 0 ml Balance 2122 ml Laboratory Data 24H LABS Laboratory Tests 2 04/23/19 14:59: Activated Partial Thromboplast Time 80.4H 04/23/19 20:57: Activated Partial Thromboplast Time 70.1H, Prothrombin Time 14.7H, Prothromb Time International Ratio 1.17 04/24/19 06:32: Activated Partial Thromboplast Time 73.0H, Prothrombin Time 14.8H, Prothromb Time International Ratio 1.18, Immature Granulocyte % (Auto) 0.6, Neutrophils (%) (Auto) 66.1H, Lymphocytes (%) (Auto) 17.2L, Monocytes (%) (Auto) 9.6H, Eosinophils (%) (Auto) 5.8H, Basophils (%) (Auto) 0.7, Neutrophils # (Auto) 5.7, Lymphocytes # (Auto) 1.5, Monocytes # (Auto) 0.8, Eosinophils # (Auto) 0.5, Basophils # (Auto) 0.1, Nucleated Red Blood Cells % (auto) 0.0, Anion Gap 7L, Glomerular Filtration Rate > 60.0, Calcium Level 8.5L, Total Bilirubin 0.5, Aspartate Amino Transf (AST/SGOT) 19, Alanine Aminotransferase (ALT/SGPT) 11L, Alkaline Phosphatase 52, Total Protein 5.9L, Albumin 2.1L, Albumin/Globulin Ratio 0.55L CBC/BMP Laboratory Tests 04/24/19 06:32 Microbiology Microbiology 04/22/19 Gram Stain - Final, Complete 04/22/19 Sputum Culture - Final, Complete 04/22/19 Urine Culture - Final, Complete 04/21/19 Wound Culture - Final, Complete 04/21/19 Blood Culture - Preliminary, Resulted No Growth after 48 hours. All Specime... 04/21/19 Blood Culture - Preliminary, Resulted No Growth after 48 hours. All Specime... VERA DAVEY MD Apr 24, 2019 12:31
[2019-04-24 14:00] VITALS: BP 108/54
[2019-04-24] MEDS: AUGMENTIN 875 MG TAB PO SCH (20:55)
[2019-04-24 22:00] VITALS: BP 110/58
[2019-04-25] MEDS: NS 1,000 ML IV SCH ×2 (05:57→14:57)
[2019-04-25 06:00] VITALS: BP 112/56
[2019-04-25 06:29] LABS: BASO # 0.1 10^3/uL (0.0-0.2); BASO % 0.9 % (0.0-1.0); EOS # 0.5 10^3/uL (0.0-0.5); EOS % 5.1 % (0.0-3.0); HEMATOCRIT 36.4 % (36.0-47.0); HEMOGLOBIN 11.8 g/dl (12.0-15.5); LYMPH # 1.6 10^3/uL (1.5-5.0); MEAN CORPUSCULAR HEMOGLOBIN 29.9 pg (27.0-33.0); MEAN CORPUSCULAR HGB CONC 32.4 g/dl (32.0-36.5); MEAN CORPUSCULAR VOLUME 92.2 fl (80.0-96.0); MONO # 0.8 10^3/uL (0.0-0.8); MONO % 8.4 % (0.0-5.0); NEUTROPHILS # 6.3 10^3/uL (1.5-8.5); NEUTROPHILS % 67.9 % (36.0-66.0); PLATELET COUNT, AUTOMATED 451 10^3/uL (150-450); RED BLOOD COUNT 3.95 10^6/uL (4.00-5.40); WHITE BLOOD COUNT 9.2 10^3/uL (4.0-10.0)
[2019-04-25 06:48] LABS: ALBUMIN 2.2 GM/DL (3.2-5.2); ALT/SGPT 12 U/L (12-78); BILIRUBIN,TOTAL 0.3 MG/DL (0.2-1.0); BLOOD UREA NITROGEN 10 MG/DL (7-18); CALCIUM LEVEL 9.1 MG/DL (8.8-10.2); CARBON DIOXIDE LEVEL 28 MEQ/L (21-32); CHLORIDE LEVEL 108 MEQ/L (98-107); CREATININE FOR GFR 0.67 MG/DL (0.55-1.30); GLOMERULAR FILTRATION RATE > 60.0 (>39); GLUCOSE, FASTING 86 MG/DL (70-100); POTASSIUM SERUM 4.2 MEQ/L (3.5-5.1); SODIUM LEVEL 141 MEQ/L (136-145); TOTAL PROTEIN 6.7 GM/DL (6.4-8.2)
[2019-04-25] MEDS: FLUTICASONE HFA 110 MCG 12 GM INHALER (FLOVENT) INH SCH ×2 (07:50→19:45)
[2019-04-25] MEDS: APIXABAN 5 MG TAB (ELIQUIS) PO SCH ×2 (10:05→20:53)
[2019-04-25] MEDS: AUGMENTIN 875 MG TAB PO SCH ×2 (10:06→20:52)
[2019-04-25] MEDS: ROSUVASTATIN 10 MG TAB (CRESTOR) PO SCH (10:06)
[2019-04-25] MEDS: amLODIPine 10 MG TAB PO SCH (10:06)
[2019-04-25] MEDS: NYSTATIN 100,000 UNITS/GM TOPICAL PWD 15 GM TOP SCH ×2 (10:07→20:55)
[2019-04-25] MEDS: MUPIROCIN 2% OINT 22 GM TUBE TOP SCH (10:07)
[2019-04-25] MEDS: DIAPER RELIEF PASTE (DESITIN) 60GM TOP SCH (10:08)
--- NOTE | 2019-04-25 11:32 | IPNPDOC ---
Subjective Date Seen The patient was seen on 04/25/19. Subjective Chief Complaint/HPI Patient is comfortable in no distress. Offers no new complaints General: Denies: ROS Unobtainable, Chills, Night Sweats, Fatigue, Malaise, Normal Appetite, Other Symptoms Constitutional: Denies: Chills, Fever, Malaise, Night Sweats, Weakness, Fatigue, Weight Loss, Lethargy, Other Pulmonary: Denies: Dyspnea, Cough, Pleuritic Chest Pain, Other Symptoms Cardiovascular: Denies: Chest Pain, Palpitations, Orthopnea, Paroxysmal Noc. Dyspnea, Edema, Lt Headedness, Other Symptoms Gastrointestinal: Denies: Nausea, Vomiting, Abdominal Pain, Diarrhea, Constipation, Melena, Hematochezia, Other Symptoms Endocrine: Denies: Polydipsia, Polyphagia, Polyuria, Heat Intolerance, Cold Intolerance, Other Endocrine Sx Musculoskeletal: Denies: Neck Pain, Back Pain, Shoulder Pain, Arm Pain, Hand Pain, Leg Pain, Foot Pain, Joint Pain, Muscle Pain, Spasms, Other Symptoms Neurological: Denies: Weakness, Numbness, Incoordination, Change in speech, Confusion, Seizures, Other Symptoms Objective Physical Examination ENT Exam: Positive: Atraumatic Neck Exam: Positive: Supple Chest Exam: Positive: Rhonchi, Diminished Heart Exam: Positive: Rate Normal Telemetry: Positive: No significant arrhythmia Abdomen Exam: Positive: Normal bowel sounds Extremity Exam: Positive: Clubbing, Edema, Other (dressing is right foot) Skin Exam: Positive: Nl turgor and temperature Neuro Exam: Positive: Cranial Nerves 3-12 NL Assessment /Plan Problems (1) DVT, bilateral lower limbs Status: Acute Problem Text: Bilateral lower extremity occlusive DVT Vascular surgery consult with Dr. Sherman noted and appreciated Patient not a surgical candidate. Further intervention can be done with the interventional radiology service as outpatient when she is clinically stable and discharged home Eliquis started 10 mg by mouth twice a day for 7 days, then 5 mg by mouth twice a day No further vascular workup has been scheduled on recommended Physical therapy in progress, possible discharge to home or rehabilitation facility depending on physical therapy's recommendation, but patient is reluctant to go to rehabilitation but will think about it Continue physical therapy as per schedule Vascular surgery and podiatry follow-ups appreciated (2) Gangrene Problem Text: Podiatry consult appreciated Patient had a debridement done on right second toe MRI negative for osteomyelitis, but has evidence of cellulitis DC IV antibiotics Start Augmentin 875 mg by mouth twice a day as patient is afebrile, WBC count is essentially within normal limits, so we will de-escalate antibiotics to by mouth (3) JIM (acute kidney injury) Status: Resolved Problem Text: Acute on chronic, most likely secondary to dehydration Patient's renal functions have improved current BUN is 10, Ativan is 0.67 Patient is a good oral intake of fluids. We will DC IV fluids (4) Hypertension Status: Chronic Problem Text: Continue present meds (5) Syncope Status: Acute Problem Text: Most likely multifactorial secondary to pulmonary emboli, dehydration, antihypertensive medications, infection Telemetry Echo Orthostatic vital signs (6) COPD (chronic obstructive pulmonary disease) Status: Chronic Problem Text: Patient is active smoker, up to 3 packs a day Patient complains of increased cough and yellowish sputum CT chest negative for pneumonia Patient responding very well to Xopenex and prednisone Will continue the same current treatment as well as fluticasone as per orders Again counseling regarding smoking cessation was done and all the risks of smoking were explained to patient She declined any nicotine gum, nicotine patch at the present time (7) Decubital ulcer Status: Acute Problem Text: Patient was found to have stage II an unstageable decubitus ulcers on the coccyx and a stage I decub ulcers on bilateral heels present since admission Dressing as per wound care recommendations PT, OT in progress Plan/VTE VTE Prophylaxis Ordered?: Yes VS, I&O, 24H, Fishbone Vital Signs/I&O Vital Signs Date Time Temp Pulse Resp B/P (MAP) Pulse Ox O2 Delivery O2 Flow Rate FiO2 04/25/19 10:06 75 126/61 04/25/19 06:00 97.3 18 97 04/24/19 14:00 Room Air I&O- Last 24 Hours up to 6 AM0 04/25/19 06:00 Intake Total 3375 ml Balance 3375 ml Laboratory Data 24H LABS Laboratory Tests 2 04/24/19 15:04: Vancomycin Level Trough 9.3L 04/25/19 05:53: Immature Granulocyte % (Auto) 0.7, Neutrophils (%) (Auto) 67.9H, Lymphocytes (%) (Auto) 17.0L, Monocytes (%) (Auto) 8.4H, Eosinophils (%) (Auto) 5.1H, Basophils (%) (Auto) 0.9, Neutrophils # (Auto) 6.3, Lymphocytes # (Auto) 1.6, Monocytes # (Auto) 0.8, Eosinophils # (Auto) 0.5, Basophils # (Auto) 0.1, Nucleated Red Blood Cells % (auto) 0.0, Anion Gap 5L, Glomerular Filtration Rate > 60.0, Calcium Level 9.1, Total Bilirubin 0.3, Aspartate Amino Transf (AST/SGOT) 17, Alanine Aminotransferase (ALT/SGPT) 12, Alkaline Phosphatase 53, Total Protein 6.7, Albumin 2.2L, Albumin/Globulin Ratio 0.49L CBC/BMP Laboratory Tests 04/25/19 05:53 Microbiology Microbiology 04/22/19 Gram Stain - Final, Complete 04/22/19 Sputum Culture - Final, Complete 04/22/19 Urine Culture - Final, Complete 04/21/19 Wound Culture - Final, Complete 04/21/19 Blood Culture - Preliminary, Resulted No Growth after 72 hours. All specime... 04/21/19 Blood Culture - Preliminary, Resulted No Growth after 72 hours. All specime... VERA DAVEY MD Apr 25, 2019 11:32
[2019-04-25 14:00] VITALS: BP 110/83
[2019-04-25] MEDS: ACETAMINOPHEN TAB 650MG DOSE (2X325MG) PO PRN ×2 (14:59→20:53)
[2019-04-25 22:00] VITALS: BP 110/52
[2019-04-26] MEDS: NS 1,000 ML IV SCH ×2 (01:04→08:44)
[2019-04-26 06:00] VITALS: BP 118/58
[2019-04-26] MEDS: FLUTICASONE HFA 110 MCG 12 GM INHALER (FLOVENT) INH SCH ×2 (08:21→20:00)
[2019-04-26] MEDS: APIXABAN 5 MG TAB (ELIQUIS) PO SCH ×2 (08:42→20:50)
[2019-04-26] MEDS: AUGMENTIN 875 MG TAB PO SCH ×2 (08:42→20:50)
[2019-04-26] MEDS: ROSUVASTATIN 10 MG TAB (CRESTOR) PO SCH (08:43)
[2019-04-26] MEDS: amLODIPine 10 MG TAB PO SCH (08:43)
[2019-04-26] MEDS: DIAPER RELIEF PASTE (DESITIN) 60GM TOP SCH (08:43)
[2019-04-26] MEDS: MUPIROCIN 2% OINT 22 GM TUBE TOP SCH (08:44)
[2019-04-26] MEDS: NYSTATIN 100,000 UNITS/GM TOPICAL PWD 15 GM TOP SCH ×2 (08:44→20:50)
--- NOTE | 2019-04-26 10:19 | IPNPDOC ---
Subjective Date Seen The patient was seen on 04/26/19. Subjective Chief Complaint/HPI Patient is refusing to be placed in rehabilitation, as per patient, she is been walking since last night and wants to go home. Patient offers no new complaints General: Denies: ROS Unobtainable, Chills, Night Sweats, Fatigue, Malaise, Normal Appetite, Other Symptoms Constitutional: Denies: Chills, Fever, Malaise, Night Sweats, Weakness, Fatigue, Weight Loss, Lethargy, Other Pulmonary: Denies: Dyspnea, Cough, Pleuritic Chest Pain, Other Symptoms Cardiovascular: Denies: Chest Pain, Palpitations, Orthopnea, Paroxysmal Noc. Dyspnea, Edema, Lt Headedness, Other Symptoms Gastrointestinal: Denies: Nausea, Vomiting, Abdominal Pain, Diarrhea, Constipation, Melena, Hematochezia, Other Symptoms Musculoskeletal: Denies: Neck Pain, Back Pain, Shoulder Pain, Arm Pain, Hand Pain, Leg Pain, Foot Pain, Joint Pain, Muscle Pain, Spasms, Other Symptoms Neurological: Denies: Weakness, Numbness, Incoordination, Change in speech, Confusion, Seizures, Other Symptoms Objective Physical Examination ENT Exam: Positive: Atraumatic Neck Exam: Positive: Supple Chest Exam: Positive: Rhonchi, Diminished Heart Exam: Positive: Rate Normal Telemetry: Positive: No significant arrhythmia Abdomen Exam: Positive: Normal bowel sounds Extremity Exam: Positive: Clubbing, Edema, Other (dressing is right foot) Skin Exam: Positive: Nl turgor and temperature Neuro Exam: Positive: Cranial Nerves 3-12 NL Assessment /Plan Problems (1) DVT, bilateral lower limbs Status: Acute Problem Text: Bilateral lower extremity occlusive DVT Vascular surgery consult with Dr. Sherman noted and appreciated Patient not a surgical candidate. Further intervention can be done with the interventional radiology service as outpatient when she is clinically stable and discharged home Eliquis started 10 mg by mouth twice a day for 7 days, then 5 mg by mouth twice a day No further vascular workup has been scheduled on recommended Patient is declining to be placed in rehabilitation facility. She wishes to go home Once she is cleared from physical therapy tomorrow. She will be discharged home on all current by mouth meds (2) Gangrene Problem Text: Podiatry consult appreciated Patient had a debridement done on right second toe MRI negative for osteomyelitis, but has evidence of cellulitis DC IV antibiotics Start Augmentin 875 mg by mouth twice a day as patient is afebrile, WBC count is essentially within normal limits, so we will de-escalate antibiotics to by mouth (3) JIM (acute kidney injury) Status: Resolved Problem Text: Acute on chronic, most likely secondary to dehydration Patient's renal functions have improved current BUN is 10, Ativan is 0.67 Patient is a good oral intake of fluids. We will DC IV fluids (4) Hypertension Status: Chronic Problem Text: Continue present meds (5) Syncope Status: Acute Problem Text: Most likely multifactorial secondary to pulmonary emboli, dehydration, antihypertensive medications, infection Telemetry Echo Orthostatic vital signs (6) COPD (chronic obstructive pulmonary disease) Status: Chronic Problem Text: Patient is active smoker, up to 3 packs a day Patient complains of increased cough and yellowish sputum CT chest negative for pneumonia Patient responding very well to Xopenex and prednisone Will continue the same current treatment as well as fluticasone as per orders Again counseling regarding smoking cessation was done and all the risks of smoking were explained to patient She declined any nicotine gum, nicotine patch at the present time (7) Decubital ulcer Status: Acute Problem Text: Patient was found to have stage II an unstageable decubitus ulcers on the coccyx and a stage I decub ulcers on bilateral heels present since admission Dressing as per wound care recommendations PT, OT in progress Plan/VTE VTE Prophylaxis Ordered?: Yes VS, I&O, 24H, Fishbone Vital Signs/I&O Vital Signs Date Time Temp Pulse Resp B/P (MAP) Pulse Ox O2 Delivery O2 Flow Rate FiO2 04/26/19 08:43 75 129/60 04/26/19 06:00 97.4 19 96 04/25/19 14:00 Room Air I&O- Last 24 Hours up to 6 AM 04/26/19 06:00 Intake Total 2890 ml Balance 2890 ml Laboratory Data Microbiology Microbiology 04/22/19 Gram Stain - Final, Complete 04/22/19 Sputum Culture - Final, Complete 04/22/19 Urine Culture - Final, Complete 04/21/19 Wound Culture - Final, Resulted 04/21/19 Blood Culture - Preliminary, Resulted No Growth after 72 hours. All specime... 04/21/19 Blood Culture - Preliminary, Resulted No Growth after 72 hours. All specime... VERA DAVEY MD Apr 26, 2019 10:19
[2019-04-26 14:00] VITALS: BP 118/52
[2019-04-26] MEDS: ACETAMINOPHEN TAB 650MG DOSE (2X325MG) PO PRN (19:02)
[2019-04-26 22:00] VITALS: BP 113/43
[2019-04-27 06:00] VITALS: BP 132/46
[2019-04-27 09:00] VITALS: BP 107/49
[2019-04-27] MEDS: amLODIPine 10 MG TAB PO SCH (09:00)
[2019-04-27] MEDS: APIXABAN 5 MG TAB (ELIQUIS) PO SCH (09:21)
[2019-04-27] MEDS: AUGMENTIN 875 MG TAB PO SCH (09:22)
[2019-04-27] MEDS: ROSUVASTATIN 10 MG TAB (CRESTOR) PO SCH (09:22)
[2019-04-27] MEDS: DIAPER RELIEF PASTE (DESITIN) 60GM TOP SCH (09:23)
[2019-04-27] MEDS: MUPIROCIN 2% OINT 22 GM TUBE TOP SCH (09:23)
[2019-04-27 09:24] VITALS: BP 107/49
[2019-04-27] MEDS: NYSTATIN 100,000 UNITS/GM TOPICAL PWD 15 GM TOP SCH (09:24)
[2019-04-27] MEDS: ACETAMINOPHEN TAB 650MG DOSE (2X325MG) PO PRN (09:25)
[2019-04-27] MEDS: FLUTICASONE HFA 110 MCG 12 GM INHALER (FLOVENT) INH SCH (10:12)
--- NOTE | 2019-04-27 10:54 | IPNPDOC ---
Subjective Date Seen The patient was seen on 04/27/19. Subjective Chief Complaint/HPI Patient clinically stable. Offers no new complaints, sitting in a chair comfortably May to be discharged home once cleared by physical therapy General: Denies: ROS Unobtainable, Chills, Night Sweats, Fatigue, Malaise, Normal Appetite, Other Symptoms Constitutional: Denies: Chills, Fever, Malaise, Night Sweats, Weakness, Fatigue, Weight Loss, Lethargy, Other Pulmonary: Denies: Dyspnea, Cough, Pleuritic Chest Pain, Other Symptoms Cardiovascular: Denies: Chest Pain, Palpitations, Orthopnea, Paroxysmal Noc. Dyspnea, Edema, Lt Headedness, Other Symptoms Gastrointestinal: Denies: Nausea, Vomiting, Abdominal Pain, Diarrhea, Consti pation, Melena, Hematochezia, Other Symptoms Musculoskeletal: Denies: Neck Pain, Back Pain, Shoulder Pain, Arm Pain, Hand Pain, Leg Pain, Foot Pain, Joint Pain, Muscle Pain, Spasms, Other Symptoms Neurological: Denies: Weakness, Numbness, Incoordination, Change in speech, Confusion, Seizures, Other Symptoms Objective Physical Examination ENT Exam: Positive: Atraumatic Neck Exam: Positive: Supple Chest Exam: Positive: Rhonchi, Diminished Heart Exam: Positive: Rate Normal Telemetry: Positive: No significant arrhythmia Abdomen Exam: Positive: Normal bowel sounds Extremity Exam: Positive: Clubbing, Edema, Other (dressing is right foot) Skin Exam: Positive: Nl turgor and temperature Neuro Exam: Positive: Cranial Nerves 3-12 NL Assessment /Plan Problems (1) DVT, bilateral lower limbs Status: Acute Problem Text: Bilateral lower extremity occlusive DVT Vascular surgery consult with Dr. Sherman noted and appreciated Patient not a surgical candidate. Further intervention can be done with the interventional radiology service as outpatient when she is clinically stable and discharged home Eliquis started 10 mg by mouth twice a day for 7 days, then 5 mg by mouth twice a day No further vascular workup has been scheduled on recommended Patient is declining to be placed in rehabilitation facility. She wishes to go home Patient can be discharged home once cleared from physical therapy today (2) Gangrene Problem Text: Podiatry consult appreciated Patient had a debridement done on right second toe MRI negative for osteomyelitis, but has evidence of cellulitis DC IV antibiotics Start Augmentin 875 mg by mouth twice a day as patient is afebrile, WBC count is essentially within normal limits, so we will de-escalate antibiotics to by mouth (3) JIM (acute kidney injury) Status: Resolved Problem Text: Acute on chronic, most likely secondary to dehydration Patient's renal functions have improved current BUN is 10, Ativan is 0.67 Patient is a good oral intake of fluids. We will DC IV fluids (4) Hypertension Status: Chronic Problem Text: Continue present meds (5) Syncope Status: Acute Problem Text: Most likely multifactorial secondary to pulmonary emboli, dehydration, antihypertensive medications, infection Telemetry Echo Orthostatic vital signs (6) COPD (chronic obstructive pulmonary disease) Status: Chronic Problem Text: Patient is active smoker, up to 3 packs a day Patient complains of increased cough and yellowish sputum CT chest negative for pneumonia Patient responding very well to Xopenex and prednisone Will continue the same current treatment as well as fluticasone as per orders Again counseling regarding smoking cessation was done and all the risks of smoking were explained to patient She declined any nicotine gum, nicotine patch at the present time (7) Decubital ulcer Status: Acute Problem Text: Patient was found to have stage II an unstageable decubitus ulcers on the coccyx and a stage I decub ulcers on bilateral heels present since admission Dressing as per wound care recommendations PT, OT in progress Plan/VTE VTE Prophylaxis Ordered?: Yes VS, I&O, 24H, Fishbone Vital Signs/I&O Vital Signs Date Time Temp Pulse Resp B/P (MAP) Pulse Ox O2 Delivery O2 Flow Rate FiO2 04/27/19 09:00 85 107/49 04/27/19 06:00 97.8 17 95 Room Air I&O- Last 24 Hours up to 6 AM 04/27/19 06:00 Intake Total 2560 ml Output Total 0 ml Balance 2560 ml Laboratory Data Microbiology Microbiology 04/22/19 Gram Stain - Final, Complete 04/22/19 Sputum Culture - Final, Complete 04/22/19 Urine Culture - Final, Complete 04/21/19 Wound Culture - Final, Resulted 04/21/19 Blood Culture - Final, Complete NO GROWTH AFTER 5 DAYS 04/21/19 Blood Culture - Final, Complete NO GROWTH AFTER 5 DAYS VERA DAVEY MD Apr 27, 2019 10:54
[2019-04-27] MEDS ORDERED: ELIQ5TAB PO (13:26)
[2019-04-27] MEDS ORDERED: NYST10006 TOP (13:26)
[2019-04-27] MEDS ORDERED: Petrolatum,White TOP (13:26)
[2019-04-27] MEDS ORDERED: AMLO10TA5 PO (13:26)
[2019-04-27] MEDS ORDERED: AMOX875T2 PO (13:26)
[2019-04-27] MEDS ORDERED: CRES10TA PO (13:26)
[2019-04-27] MEDS ORDERED: FLUT11IN INH (13:26)
[2019-04-27] MEDS ORDERED: MUPI2OI TOP (13:26)
--- NOTE | 2019-04-27 13:48 | DS.PDOC ---
Discharge Summary General Date of Admission Apr 21, 2019 at 19:48 Date of Discharge 04/27/19 Discharge Summary PROCEDURES PERFORMED DURING STAY: None. ADMITTING DIAGNOSES: 1. Anemia, COPD, DVT bilateral lower extremities. Hypertension. DISCHARGE DIAGNOSES: 1. Anemia, COPD, DVT bilateral lower extremities. Hypertension. COMPLICATIONS/CHIEF COMPLAINT: Anemia,Copd,Dvt Bilateral Lower Extremities,Htn, exacerbation of COPD, JIM,, decub ulcers on heels, gangrene, right foot, hypertension HISTORY OF PRESENT ILLNESS: Patient is 73 years old female with past history of DVT not on any anticoagulation due to previous GI bleed, hypertension, hyperlipidemia, active smoker presented to the hospital with history of syncope. Patient stated that today a few hours ago in the bathroom she developed loss of consciousness for a few minutes, patient doesn't have any recollection of the event. According to family members she was pale, not any seizure activity. Of note, she has been recently received intensified antihypertensive regimen with diuretics. Also according to family members she has been having increased cough with yellowish sputum production. Its been noticed that her left distal leg swollen and right toe has unhealed wound with black color. In emergency room patient was found to have leukocytosis of 22, creatinine of 1.6, DVT ultrasound was done and showed extensive acute thrombus filling the right and left common femoral vein, femoral vein through the thigh and popliteal vein. Heparin drip was initiated. Patient denied fever, nausea or vomiting, any chest pain, shortness of breath, diarrhea or dysuria. HOSPITAL COURSE: Patient was admitted with Bilateral lower extremity occlusive DVT Patient initially was started on IV heparin and vascular surgery consult with Dr. Sherman was called. As per Dr. Sherman patient is a not a surgical candidate And any Further intervention can be done with the interventional radiology service as outpatient when she is clinically stable and discharged home Once patient was stabilized, she was started on oral anticoagulation with eliquis Eliquis started 10 mg by mouth twice a day for 7 days, then 5 mg by mouth twice a day No further vascular workup has been scheduled on recommended Patient is declining to be placed in rehabilitation facility. She wishes to go home She'll be discharged home today with all current meds. Follow with PCP in one week Patient was also found to have a gangrene of her right second toe ,Podiatry consult was called Patient had a debridement done on right second toe MRI negative for osteomyelitis, but has evidence of cellulitis IV antibiotics were continued initially but later on they were DC'd was there was no evidence of osteomyelitis Started on Augmentin 875 mg by mouth twice a day as patient is afebrile, WBC count is essentially within normal limits, so we will de-escalate antibiotics to by mouth Patient also had Acute on chronic, most likely secondary to dehydration Patient's renal functions have improved current BUN is 10, Ativan is 0.67 Patient is a good oral intake of fluids. We will DC IV fluids Patient is active smoker, up to 3 packs a day Patient complains of increased cough and yellowish sputum CT chest negative for pneumonia Patient responding very well to Xopenex and prednisone Will continue the same current treatment as well as fluticasone as per orders Again counseling regarding smoking cessation was done and all the risks of smoking were explained to patient She declined any nicotine gum, nicotine patch at the present time Patient was found to have stage II an unstageable decubitus ulcers on the coccyx and a stage I decub ulcers on bilateral heels present since admission Dressing as per wound care recommendations PT, OT in progress. DISCHARGE MEDICATIONS: Please see below. ALLERGIES: Please see below. PHYSICAL EXAMINATION ON DISCHARGE: VITAL SIGNS: Please see below. GENERAL: Within normal limits HEENT: PERRLA. Extraocular muscles intact NECK: Supple CARDIOVASCULAR EXAMINATION: S1, S2, regular RESPIRATORY EXAMINATION: Clear to A&P ABDOMINAL EXAMINATION: , Soft, nontender, bowel sounds present EXTREMITIES: No clubbing, cyanosis, edema SKIN: Normal NEUROLOGICAL EXAMINATION: . No focal motor sensory deficit PSYCHIATRIC EXAMINATION: Normal LABORATORY DATA: Please see below. IMAGING: Bilateral lower extremity venous Dopplers:FINDINGS: Right side: There is acute thrombus distending and including the right common femoral vein. There is occluding thrombus within the femoral vein through thigh and also the popliteal vein. Left side: There is distention of the left common femoral vein with thrombus. Occluding thrombus is noted of the femoral vein through the left thigh and also the who popliteal vein. There is soft tissue swelling throughout the legs. Who who IMPRESSION: Extensive acute thrombus filling the right and left common femoral vein, femoral vein and popliteal vein. PROGNOSIS: Good ACTIVITY: As tolerated. DIET: As tolerated DISCHARGE PLAN: Discharged home DISPOSITION: . Home DISCHARGE INSTRUCTIONS: 1. As per discharge instructions. ITEMS TO FOLLOWUP ON ON OUTPATIENT: 1. Follow PCP in one week. DISCHARGE CONDITION: Stable. TIME SPENT ON DISCHARGE: 42 minutes. Vital Signs/I&Os Vital Signs Date Time Temp Pulse Resp B/P (MAP) Pulse Ox O2 Delivery O2 Flow Rate FiO2 04/27/19 09:24 85 107/49 (68) 04/27/19 06:00 97.8 17 95 Room Air I&O- Last 24 Hours up to 6 AM 04/27/19 06:00 Intake Total 2560 ml Output Total 0 ml Balance 2560 ml Microbiology Microbiology 04/22/19 Gram Stain - Final, Complete 04/22/19 Sputum Culture - Final, Complete 04/22/19 Urine Culture - Final, Complete 04/21/19 Wound Culture - Final, Resulted 04/21/19 Blood Culture - Final, Complete NO GROWTH AFTER 5 DAYS 04/21/19 Blood Culture - Final, Complete NO GROWTH AFTER 5 DAYS Discharge Medications Scheduled Amlodipine Besylate (Amlodipine Besylate) 10 Mg Tablet, 10 MG PO DAILY Amoxicillin/Potassium Clav (Amox-Clav 875-125 mg Tablet) 1 Each Tablet, 875 MG PO BID Apixaban (Eliquis) 5 Mg Tablet, 10 MG PO BID Fluticasone Propionate (Flovent Hfa) 110 Mcg/Act Aer.w.adap, 2 PUFF INH RBID Mupirocin (Mupirocin) 22 Gm Oint...g., 0 DOSE TOP DAILY Nystatin (Nystop) 60 Gm Powder, 0 DOSE TOP BID Rosuvastatin Calcium (Crestor) 10 Mg Tablet, 40 MG PO DAILY [Petrolatum,White] 99 GM OINT...G., 0 DOSE TOP DAILY Allergies Coded Allergies: No Known Allergies (Unverified , 04/21/19) VERA DAVEY MD Apr 27, 2019 13:48
== END 2019-04-27 14:50 | disposition home or self-care (01) | DRG 300 ==
LOC: EDBD 13:52 → M ED 13:52 → M ED INP 19:48 → ENRESERV 20:20 → M PCU 21:48 → M MSPAV 04-23 15:01
PROVIDERS: ADMIT Internal Medicine; ATTEND Internal Medicine
DX: I82.413 Acute embolism and thrombosis of femoral vein, bilateral (principal); N17.9 Acute kidney failure, unspecified; L97.518 Non-pressure chronic ulcer of other part of right foot with other specified severity; I96 Gangrene, not elsewhere classified; J44.9 Chronic obstructive pulmonary disease, unspecified; R55 Syncope and collapse; Z86.718 Personal history of other venous thrombosis and embolism; I12.9 Hypertensive chronic kidney disease with stage 1 through stage 4 chronic kidney disease, or unspecified chronic kidney disease; E78.5 Hyperlipidemia, unspecified; F17.200 Nicotine dependence, unspecified, uncomplicated; D72.829 Elevated white blood cell count, unspecified; Z79.899 Other long term (current) drug therapy; H40.9 Unspecified glaucoma; N18.3 Chronic kidney disease, stage 3 (moderate); Z98.41 Cataract extraction status, right eye; Z98.42 Cataract extraction status, left eye; D64.9 Anemia, unspecified; E86.0 Dehydration; L89.152 Pressure ulcer of sacral region, stage 2; L89.611 Pressure ulcer of right heel, stage 1; L89.621 Pressure ulcer of left heel, stage 1; I82.433 Acute embolism and thrombosis of popliteal vein, bilateral; E66.9 Obesity, unspecified; Z68.24 Body mass index [BMI] 24.0-24.9, adult

== ENCOUNTER → 2019-05-05 | Outpatient (POV) | payer MEDICARE, MEDICAID ==
[~2019-05-05] VITALS: Ht 157.5 cm; Wt 73.2 kg
[~2019-05-05] MED LIST changes: +AMLO10TA5 PO; +AMOX875T2 PO; +CHLO25TA PO; +CRES10TA PO; +FLUT11IN INH; +NYST10006 TOP; +Petrolatum,White TOP
[2019-05-05 14:55] VITALS: BP 134/61
--- NOTE | 2019-05-07 09:47 | IRCOV ---
[facility] IR Consult Office Visit IR Consult Office Visit DATE: May 05, 2019 REASON FOR CONSULTATION/CHIEF COMPLAINT: Bilateral lower extremity DVTs. HISTORY OF PRESENT ILLNESS: 73-year-old female without history of cancer, trauma or prior hypercoagulable disorder presents with multiple DVTs. She suffered with a right leg deep vein thrombosis 2 years ago. She was started on blood thinners which had to be stopped after 1 year due to a bleeding ulcer. Patient then recently presented to the hospital post syncope. She was found to have bilateral lower extremity swelling and pain and diagnosed with bilateral LE deep vein thrombosis involving the common femoral veins. She is ambulatory. Denies chest pain, shortness of breath, immobility or trauma. She denies loss of appetite, loss of weight, hematemesis, blood in stools or black stools. Doing her recent hospital admission, she also had a right toe wound debrided. Reportedly, the right toe wound with black discoloration had started prior to Thanksgiving. During recent hospitalization, the wound was to debrided; Dr. Lloyd reports the wound is superficial, there was good blood flow and no additional gangrenous tissue in the region. Patient denies intermittent claudication or rest pain. No orthopnea or paroxysmal nocturnal dyspnea. ALLERGIES: Please see below. HOME MEDICATIONS: Please see below. PAST MEDICAL HISTORY: Hypertension Hyperlipidemia Glaucoma Multiple deep vein thromboses Chronic kidney disease PAST SURGICAL HISTORY: Cataract surgery Polyp removal FAMILY HISTORY: No history of deep vein thrombosis. No coagulation disorders. SOCIAL HISTORY: quit smoking few weeks ago. Denies alcohol or drugs REVIEW OF SYSTEMS: Otherwise negative PHYSICAL EXAMINATION: VITAL SIGNS: Please see below. GENERAL APPEARANCE: Appears well. Comfortable at rest. HEENT: No scleral icterus. RESPIRATORY: Normal breathing at rest. CARDIOVASCULAR: Normal rate. ABDOMEN: Soft nontender. EXTREMITIES: Bilateral lower extremity edema to the knees. Warm to touch. No calf tenderness. No phlegmasia. NEUROLOGICAL: Alert and oriented. PSYCHIATRIC: Appropriate to circumstance. LABORATORY DATA: 04/25/2019 hemoglobin 11.8 hematocrit 36.4 WBC 9.2 platelets 451 sodium 141 potassium 4.2 BUN 10 creatinine 0.67 hemoglobin A1c 6.0 LDL 104 TSH 3.0 vitamin B12 336 albumin 2.2 total protein 6.7 bilirubin 0.3 AST 17 ALT 12 ALP 53 INR 1.18 Imaging: I personally reviewed her mammogram from October 2017. This appears negative and is reported the same. I personally reviewed her CT chest without contrast from April 2019. There is no pulmonary mass. There is no hilar or axillary adenopathy. Patient has no dedicated abdominal or pelvic imaging. Patient also had an upper GI endoscopy in September 2018 which showed angioectasia in the duodenum. This was clipped. No colonoscopy done. I personally reviewed the arterial ultrasound of the right lower extremity from April 2019. There is bilateral lower extremity atherosclerotic disease and monophasic waveform in posterior tibial and peroneal artery in the right lower extremity. I personally reviewed the lower extremity venous ultrasound from April 2019. There is bilateral occlusive deep vein thrombosis extending from popliteal to at least the common femoral veins. ASSESSMENT/PLAN: 73-year-old female with multiple spontaneous deep vein thrombosis without clear etiology. It is unclear how fresh the bilateral DVTs are however given recent symptomatology and extent of bilateral thrombosis and swelling, we can perform bilateral thrombectomy with filter placement to reduce risk of future venous hypertension and nonhealing wounds. She has a recent mammogram and chest CT. No recent abdominal imaging. No recent colonoscopy. I'll refer her to GI for possible colonoscopy. I'll order an abdominal and pelvic CT for screening to look for any underlying malignant disease which may be making her hypercoagulable. I will also refer her to hematology. After IVC filter placement and DVT treatment, we'll bring her back for right lower extremity angiogram and intervention if indicated. Continued follow up with wound care and podiatry. I spent 30 minutes in consultation with the patient. Thank you for this referral. Cc Dr. Lloyd CC Dr. Woodall Cc Dr. Diaz CC Rubi Castillo Allergies Coded Allergies: No Known Allergies (Unverified , 04/21/19) Home Medications Scheduled Amlodipine Besylate (Amlodipine Besylate), 10 MG PO DAILY Amoxicillin/Potassium Clav (Amox-Clav 875-125 mg Tablet), 875 MG PO BID Apixaban (Eliquis), 10 MG PO BID Fluticasone Propionate (Flovent Hfa), 2 PUFF INH RBID Mupirocin (Mupirocin), 0 DOSE TOP DAILY Nystatin (Nystop), 0 DOSE TOP BID Rosuvastatin Calcium (Crestor), 40 MG PO DAILY [Petrolatum,White], 0 DOSE TOP DAILY VS, I&O, 24H, Fishbone Vital Signs/I&O Vital Signs Date Time Temp Pulse Resp B/P (MAP) Pulse Ox O2 Delivery O2 Flow Rate FiO2 05/05/19 14:55 97.0 91 18 134/61 (85) 95 Room Air JANET VERNON MD May 07, 2019 09:47
== END ==
LOC: M IRPOV 14:38
PROVIDERS: ATTEND Radiology Diagnostic Radiology
DX: I82.403 Acute embolism and thrombosis of unspecified deep veins of lower extremity, bilateral (principal); I12.9 Hypertensive chronic kidney disease with stage 1 through stage 4 chronic kidney disease, or unspecified chronic kidney disease; E78.5 Hyperlipidemia, unspecified; H40.9 Unspecified glaucoma; N18.9 Chronic kidney disease, unspecified; Z96.1 Presence of intraocular lens; Z72.0 Tobacco use

== ENCOUNTER → 2019-05-18 | Outpatient (CLI) | payer MEDICARE, MEDICAID ==
--- NOTE | 2019-05-18 10:15 | REP ---
Abdominal right upper quadrant ultrasound: The patient had a too small hypodensities in the liver on a recent abdomen CT dated 04/21/2019, thought to have been hepatic cysts. On the study today there are echogenic foci in the gallbladder resulting in acoustic shadowing compatible with gallbladder calculi with a gallbladder calculus measuring 1.7 x 0 point 9 cm. There is no gallbladder wall thickening or pericholecystic fluid. There is no intrahepatic or extrahepatic biliary duct dilatation. The common biliary duct measures 5.2 mm in diameter. The hepatic parenchyma is homogeneous. The small cysts identified by CT are not visible on ultrasound. The liver measures 19.2 cm craniocaudad length and is enlarged. The pancreas is obscured by bowel gas. The right kidney measures 10.0 x 4 point of by four point centimeters and is normal width. There is no right renal calculus or hydronephrosis. There is no right renal solid or cystic mass. There is no free fluid in the abdominal right upper quadrant. The study is technically difficult because of bowel gas. Impression: There is a gallbladder calculus. There is no ultrasound evidence of acute cholecystitis or biliary duct. The small hepatic cysts identified by CT are not visible on ultrasound. The liver is enlarged as described. The pancreas is obscured. Electronically Signed by James Sosa MD 05/18/2019 10:06 A
== END ==
LOC: M WHC 09:06
PROVIDERS: ATTEND Family Medicine
DX: K76.89 Other specified diseases of liver (principal); K80.20 Calculus of gallbladder without cholecystitis without obstruction

== ENCOUNTER → 2019-05-25 | Outpatient (CLI) | payer MEDICARE, MEDICAID ==
[~2019-05-25] MED LIST changes: +ISOVUE-300 61% 50ML VIAL (Q9967) As Ordered ONE; +LIDOCAINE 1% MDV 20ML VIAL As Ordered ONE; +MIDAZOLAM INJ 2 MG/2 ML VIAL (J2250) As Ordered ONE; +PROMETHAZINE INJ 25 MG/ML VIAL (J2550) As Ordered ONE; +diphenhydrAMINE INJ 50MG/ML VIAL (J1200) As Ordered ONE; +fentaNYL 100 MCG/2 ML INJECTION (J3010) As Ordered ONE
--- NOTE | 2019-05-25 08:18 | IRHP ---
[facility] IR Pre-Procedure H & P General Date of Service: May 25, 2019 Procedure: Same Day Surgery Interval History and Physical I have seen the patient and reviewed last H & P performed within 30 days. There is no significant interval change. History of Present Illness Chief Complaint The patient is a 73-year-old female admitted with a reason for visit of DVT. PRE-PROCEDURE DIAGNOSIS:DVT HEART: normal rate. LUNGS: normal breathing at rest. ASA Classification ASA Classification: II-Mild systemic disease, III-Severe systemic dis. Mallampati Score: II NPO: Yes Problems with prior sedation: No Obstructive Sleep Apnea: No Plan moderate sedation Allergies Coded Allergies: No Known Allergies (Unverified , 04/21/19) Home Medications Scheduled Amlodipine Besylate (Amlodipine Besylate), 10 MG PO DAILY Apixaban (Eliquis), 10 MG PO BID Fluticasone Propionate (Flovent Hfa), 2 PUFF INH RBID Mupirocin (Mupirocin), 0 DOSE TOP DAILY Nystatin (Nystop), 0 DOSE TOP BID Rosuvastatin Calcium (Crestor), 40 MG PO DAILY [Petrolatum,White], 0 DOSE TOP DAILY VS, I&O, 24H, Fishbone Vital Signs/I&O Vital Signs Date Time Temp Pulse Resp B/P (MAP) Pulse Ox O2 Delivery O2 Flow Rate FiO2 05/25/19 08:15 68 16 97 Nasal Cannula 2 05/25/19 06:59 97.7 JANET VERNON MD May 25, 2019 08:18
--- NOTE | 2019-05-25 14:47 | POST-OPPD ---
Postoperative Procedure Note Date Of Procedure: May 25, 2019 Time Of Procedure: 14:45 PREOPERATIVE DIAGNOSIS: bilateral DVT POSTOPERATIVE DIAGNOSIS: same FINDINGS: bilateral iliofemoral segments free of thrombus with good central drainage and no may thurner PROCEDURE: bilateral lower extremity venography. IVC filter placement SURGEON: baldo ANESTHESIA: mod sed ESTIMATED BLOOD LOSS: < 5 ml COMPLICATIONS: none POSTOPERATIVE CONDITION: stable JANET VERNON MD May 25, 2019 14:47
[2019-05-25 15:00] VITALS: BP 129/58
--- NOTE | 2019-05-26 12:52 | REP ---
IR IVC filter placement. IR Inferior vena cava venograms. IR Ultrasound guided right common femoral vein access. IR Ultrasound guided right popliteal vein access. IR Ultrasound guided left popliteal vein access. IR Left lower extremity venogram IR Right lower extremity venogram. IR moderate sedation. Clinical indication : Recurrent bilateral lower extremity acute on chronic DVTs with increased pain and swelling. Ultrasound demonstrates thrombus extension to the common femoral veins. Repeat DVT upon discontinuing anticoagulation for GI bleed. Physician: Dr. Weems. Procedure: The patient was advised of the benefits, risks and alternatives of the procedure and informed consent was obtained. The time-out was performed with verification of the patient's name, MRN, site of procedure and type of procedure to be performed. The patient was positioned in the supine position on the angiographic table. The site was prepped and draped in the usual sterile fashion. Moderate sedation was performed by the physician including the presence of an independent trained observer that assisted in monitoring the patient's level of consciousness and physiologic status. Following administration of Fentanyl and Versed , the physician spent 90 minutes of continuous face to face time with the patient. Preliminary ultrasound of the right groin was performed and demonstrates a patent right common femoral vein. The right common femoral vein was accessed using a micropuncture kit, under ultrasound guidance. An 035 wire was placed into the peripheral inferior vena cava. An inferior vena cava venogram was then performed demonstrating a normal caliber inferior vena cava without filling defects and the renal vein inflow at the L1 level. No caval anomalies were identified. The wire was then passed into the inferior vena cava and the filter sheath advanced over the wire. A filter was then advanced through the sheath and positioned within the infrarenal inferior vena cava, under fluoroscopy guidance. The filter was then deployed in the usual fashion under fluoroscopy guidance. The sheath was then removed and hemostasis obtained with manual compression. The patient was then positioned in the prone position on the angiographic table. The site was prepped and draped in the usual sterile fashion. The left popliteal vein was accessed under ultrasound guidance with a micropuncture kit. A left lower extremity venogram was performed and this demonstrates minimal irregularity in the popliteal vein but good flow through the femoral vein. A venogram further up the leg was performed and this demonstrates good flow through the common femoral and iliac vein without iliac vein stenosis or occlusion. Insufficient clot burden for mechanical thrombectomy. Sheath was removed, pressure held and hemostasis achieved. A sterile dressing was applied to the site. The right popliteal vein was accessed under ultrasound guidance with a micropuncture kit. A right lower extremity venogram was performed and this demonstrates more collaterals in the right lower extremity. Irregularity of the popliteal vein but good flow through the femoral vein. Venogram further up the leg and pelvis was performed and this demonstrates good flow through the common femoral and iliac vein without significant clot burden. Insufficient clot burden for mechanical thrombectomy. Sheath was removed, pressure held and hemostasis achieved. A sterile dressing was applied to the site. The patient tolerated the procedure well and was returned to PRU in stable condition. EBL: Less than 5 ml. Complications: None. Impression: 1. Normal inferior vena cava venogram. 2. Successful deployment of a cook select filter in the infrarenal inferior vena cava. 3. Bilateral lower extremity venograms demonstrate adequate deep venous drainage. Insufficient clot burden for mechanical thrombectomy. Continue compression stockings and leg elevation. Continue anticoagulation. 4. Providing patient continues safely on anticoagulation without recurrent GI bleed as previous, and doesn't fail anti coagulation, we will bring the patient back for filter removal in 3 months. Thank you this referral. Electronically Signed by Snehal Weems MD 05/26/2019 12:50 P
== END ==
LOC: M IRPRO 05-14 06:32
PROVIDERS: ATTEND Radiology Diagnostic Radiology
DX: I82.503 Chronic embolism and thrombosis of unspecified deep veins of lower extremity, bilateral (principal); I12.9 Hypertensive chronic kidney disease with stage 1 through stage 4 chronic kidney disease, or unspecified chronic kidney disease; H40.9 Unspecified glaucoma; N18.9 Chronic kidney disease, unspecified; J44.9 Chronic obstructive pulmonary disease, unspecified; F17.211 Nicotine dependence, cigarettes, in remission; E78.2 Mixed hyperlipidemia; K76.89 Other specified diseases of liver; E27.8 Other specified disorders of adrenal gland; Z79.01 Long term (current) use of anticoagulants; Z79.899 Other long term (current) drug therapy
CPT/HCPCS: 36005; 37191; 75822; 99152; 99153; C1769; C1880; C1887; C1894; J1200; J1644; J2250; J3010; Q9967

== ENCOUNTER → 2019-06-11 | Outpatient (CLI) | payer MEDICARE, MEDICAID ==
[~2019-06-11] MED LIST changes: +GASTROGRAFIN SOLUTION 30ML (Q9963) As Ordered ONE; -ISOVUE-300 61% 50ML VIAL (Q9967) As Ordered ONE; +ISOVUE-370 76% 100ML VIAL (Q9967) As Ordered ONE; -LIDOCAINE 1% MDV 20ML VIAL As Ordered ONE; -MIDAZOLAM INJ 2 MG/2 ML VIAL (J2250) As Ordered ONE; -PROMETHAZINE INJ 25 MG/ML VIAL (J2550) As Ordered ONE; -diphenhydrAMINE INJ 50MG/ML VIAL (J1200) As Ordered ONE; -fentaNYL 100 MCG/2 ML INJECTION (J3010) As Ordered ONE
--- NOTE | 2019-06-11 15:04 | REP ---
CT ABDOMEN AND PELVIS WITH ORAL AND IV CONTRAST: Visualized lung bases demonstrate no infiltrate with minimal fibrotic changes. The liver demonstrates multiple subcentimeter low density structures probably representing tiny cysts. No suspicious enhancing mass is seen. Gallbladder demonstrates a palpable subcentimeter calculus in the dependent portion. The spleen is normal in size with no intrinsic abnormality. There is diffuse left adrenal gland thickening without focal mass. Right adrenal gland is unremarkable. The pancreas demonstrates no mass. There is no significant pancreatic duct dilatation. There is a cyst of the lower pole of the right kidney posteriorly measuring 1.4 cm in diameter. No other significant renal abnormality is seen. There is moderate atherosclerotic calcification of the abdominal aorta with slight ectasia. There is an IVC filter present. No adenopathy. There is no free air or free fluid. There is no bowel wall thickening. The appendix is normal. No pelvic mass is seen. Urinary bladder is mildly distended and grossly unremarkable. There are degenerative changes of the spine. There is a small hiatal hernia. There are diverticula of the left colon and sigmoid colon without acute diverticulitis. IMPRESSION: Small hiatal hernia. IVC filter noted. Probably subcentimeter gallstone in the gallbladder without gallbladder wall edema. Diffuse left renal gland thickening with no evidence of adrenal mass. Left colonic and sigmoid diverticulosis without acute diverticulitis. There are cysts noted of the liver and right kidney. Electronically Signed by James Cordero MD 06/11/2019 03:12 P
== END ==
LOC: M RAD 11:27
PROVIDERS: ATTEND Radiology Diagnostic Radiology
DX: E27.8 Other specified disorders of adrenal gland (principal)
CPT/HCPCS: 74177; Q9963; Q9967

== ENCOUNTER 2019-12-25 14:48 | Emergency (ER) | payer MEDICARE, MEDICAID ==
[~2019-12-25] VITALS: Ht 157.5 cm; Wt 80.9 kg
[~2019-12-25 14:48] MED LIST changes: -AMLO10TA5 PO; +AMLO1TAB25 PO; -GASTROGRAFIN SOLUTION 30ML (Q9963) As Ordered ONE; -ISOVUE-370 76% 100ML VIAL (Q9967) As Ordered ONE
--- NOTE | 2019-12-25 15:28 | REPVR ---
PROCEDURE INFORMATION: Exam: XR Chest, 1 View Exam date and time: 12/25/2019 3:12 PM Age: 74 years old Clinical indication: Shortness of breath; Additional info: Dyspnea/cough TECHNIQUE: Imaging protocol: XR of the chest Views: 1 view. COMPARISON: 1. CR PORTABLE CHEST X-RAY 04/21/2019 4:26:[address] Chest without contrast 04/21/2019 5:17 PM FINDINGS: Tubes, catheters and devices: Oxygen tubing and ECG leads/contacts overlie and partially obscure the anatomy. Lungs: Bilateral small lung volumes. No pulmonary consolidation or edema. Pleural space: No evident pleural effusion. No evident pneumothorax. Heart/Mediastinum: Heart size is within normal limits given the portable technique. Vasculature: Inferior vena cava filter is incompletely imaged at the upper abdomen. Mildly tortuous thoracic aorta redemonstrated. Aortic atherosclerotic calcification. Bones/joints: Degenerative disease of the spine and shoulder joints. IMPRESSION: Bilateral small lung volumes. No consolidation. Electronically signed by: Chas Perez On 12/25/2019 15:28:27 PM
[2019-12-25 16:35] LABS: HEMATOCRIT 42.1 % (36.0-47.0); HEMOGLOBIN 13.6 g/dl (12.0-15.5); MEAN CORPUSCULAR HEMOGLOBIN 29.1 pg (27.0-33.0); MEAN CORPUSCULAR HGB CONC 32.3 g/dl (32.0-36.5); MEAN CORPUSCULAR VOLUME 90.1 fl (80.0-96.0); PLATELET COUNT, AUTOMATED 322 10^3/uL (150-450); RED BLOOD COUNT 4.67 10^6/uL (4.00-5.40); WHITE BLOOD COUNT 21.4 10^3/uL (4.0-10.0)
[2019-12-25] MEDS ORDERED: ISOVUE-370 76% 100ML VIAL As Ordered ONE (16:39)
[2019-12-25 16:46] LABS: INR 2.57; PROTHROMBIN TIME 28.2 SECONDS (12.5-14.3)
[2019-12-25 16:47] LABS: PARTIAL THROMBOPLASTIN TIME 57.9 SECONDS (24.2-38.5)
[2019-12-25 16:48] LABS: ATYPICAL LYMPH 1 % (0-5); BASOPHILS 1 % (0-1); LYMPHOCYTES 8 % (16-44); MONOCYTES 5 % (0-5); NEUTROPHILS 83 % (28-66)
[2019-12-25 16:49] LABS: PLATELET CLUMPS SMALL AMT; PLATELET ESTIMATE NORMAL (NORMAL)
[2019-12-25 17:05] LABS: ALBUMIN 2.3 GM/DL (3.2-5.2); ALT/SGPT 6 U/L (12-78); BILIRUBIN,DIRECT 0.3 MG/DL (0.0-0.2); BILIRUBIN,TOTAL 0.6 MG/DL (0.2-1.0); CK-MB VALUE MASS < 1.0 NG/ML (<3.6); CPK CREATINE PHOSPHOKINASE 52 U/L (26-192); MB/CK RELATIVE INDEX 1.92 (< OR =4); NT-PRO BNP 607 PG/ML (<125); TOTAL PROTEIN 6.5 GM/DL (6.4-8.2); TROPONIN I < 0.02 NG/ML (< 0.10)
--- NOTE | 2019-12-25 17:27 | REPVR ---
PROCEDURE INFORMATION: Exam: CT Angiography Abdomen and Pelvis With Contrast Exam date and time: 12/25/2019 4:51 PM Age: 74 years old Clinical indication: Other: Sob/abdominal pain; HX of clots TECHNIQUE: Imaging protocol: Computed tomographic angiography of the abdomen and pelvis with intravenous contrast material. 3D rendering (Not supervised by radiologist): MIP and/or 3D reconstructed images were created by the technologist. Radiation optimization: All CT scans at this facility use at least one of these dose optimization techniques: automated exposure control; mA and/or kV adjustment per patient size (includes targeted exams where dose is matched to clinical indication); or iterative reconstruction. Contrast material: ISOVUE 370; Contrast volume: 100 ml; Contrast route: INTRAVENOUS (IV); COMPARISON: CT ABD/PEL W/IV ORAL CONTRAS 06/11/2019 1:03 PM FINDINGS: Aorta: Diffuse atherosclerotic changes and ectasia demonstrated in the abdominal aorta without evidence of an aneurysm or significant stenosis. Atherosclerotic changes demonstrated at the origin of the superior mesenteric artery without significant stenosis. Celiac trunk and mesenteric arteries: Atherosclerotic changes at the origin of the celiac artery without significant stenosis. Renal arteries: Atherosclerotic changes at the origin of both renal arteries without evidence of a high-grade stenosis or poststenotic dilatation. Right iliac arteries: Atherosclerotic changes demonstrated in the right common iliac, internal and external iliac arteries without evidence of aneurysm or stenosis. Left iliac arteries: Atherosclerotic changes demonstrated in the left common, internal and external iliac arteries without evidence of aneurysm or significant stenosis. Liver: There is a diffuse decrease in hepatic parenchymal density, consistent with steatosis. There are cysts in the liver measuring up to 0.9 cm located in the right lobe. No complex features demonstrated. No follow-up suggested. Gallbladder and bile ducts: Unremarkable. No calcified stones. No ductal dilation. Pancreas: Unremarkable. No mass. No ductal dilation. Spleen: Unremarkable. No splenomegaly. Adrenals: Unremarkable. No mass. Kidneys and ureters: Simple cyst right kidney measures 11 mm. No follow-up suggested. Stomach and bowel: Moderate diverticulosis is present in the distal colon. Thickening of the wall of the mid sigmoid colon with inflammatory changes may represent reactive change although a focus of diverticulitis not excluded. Multiple abnormal loops of small bowel in the right lower quadrant, several of which are adhered to one another. Several demonstrate thickened almaguer. There are 2 air containing fluid-filled masses measuring 2.3 x 1.8 x 2 cm in the lower abdomen and 4.4 x 4.7 x 3.9 cm in the right cul-de-sac region consistent with abscesses. Appendix: No evidence of appendicitis. Intraperitoneal space: Minimal free fluid in the flanks. Lymph nodes: Unremarkable. No enlarged lymph nodes. Urinary bladder: There is diffuse thickening of the bladder wall most pronounced anteriorly. Finding may be related to incomplete distention. Cystitis to be excluded clinically. Reproductive: Unremarkable as visualized. Bones/joints: The spine demonstrates mild degenerative changes. Moderate dextroscoliosis. Soft tissues: Filter demonstrated in the IVC. Otherwise unremarkable. IMPRESSION: 1. Diffuse atherosclerotic changes in the abdominal and branch arteries without evidence of an aneurysm or high-grade stenosis. 2. There is a diffuse decrease in hepatic parenchymal density, consistent with steatosis. 3. There are cysts in the liver measuring up to 0.9 cm located in the right lobe. No complex features demonstrated. No follow-up suggested. 4. Moderate diverticulosis is present in the distal colon. Thickening of the wall of the mid sigmoid colon with inflammatory changes may represent reactive change although a focus of diverticulitis not excluded. 5. Two abscesses as described above. These may be related to focus of complicated diverticulitis although abscesses of other etiology including related to small bowel infection not excluded. 6. Abnormal loops of small bowel in the lower abdomen and upper pelvic region Differential diagnosis includes reactive disease related to primary diverticulitis, inflammatory bowel disease, ischemic bowel disease or severe bowel infection. 7. There is diffuse thickening of the bladder wall most pronounced anteriorly. Finding may be related to incomplete distention. Cystitis to be excluded clinically. Electronically signed by: Willy Nowak On 12/25/2019 17:27:47 PM
--- NOTE | 2019-12-25 17:32 | REPVR ---
PROCEDURE INFORMATION: Exam: CT Angiography Chest With Contrast Exam date and time: 12/25/2019 4:51 PM Age: 74 years old Clinical indication: Shortness of breath; Additional info: Sob/abdominal pain; HX of clots TECHNIQUE: Imaging protocol: Computed tomographic angiography of the chest with intravenous contrast. 3D rendering (Not supervised by radiologist): MIP and/or 3D reconstructed images were created by the technologist. Radiation optimization: All CT scans at this facility use at least one of these dose optimization techniques: automated exposure control; mA and/or kV adjustment per patient size (includes targeted exams where dose is matched to clinical indication); or iterative reconstruction. Contrast material: ISOVUE 370; Contrast volume: 100 ml; Contrast route: INTRAVENOUS (IV); COMPARISON: CT Chest without contrast 04/21/2019 5:17 PM FINDINGS: Pulmonary arteries: There are no pulmonary emboli. Aorta: There is moderate atherosclerosis in the thoracic aorta. There is no aortic dissection or aneurysm. Lungs: Remaining lungs are clear. Pleural space: Bilateral basilar pleural thickening with a minimal effusion at the right lung base. Heart: There is mild atherosclerotic calcification of the coronary arteries. Lymph nodes: Unremarkable. No enlarged lymph nodes. Bones/joints: The spine demonstrates moderate degenerative changes. Diffuse decrease in bone mineralization consistent with osteoporosis or osteopenia. Soft tissues: Unremarkable. IMPRESSION: 1. There is no aortic dissection or aneurysm. 2. There are no pulmonary emboli. 3. Minimal right pleural effusion. Bibasilar pleural thickening. 4. No acute pulmonary infiltrates. Electronically signed by: Willy Nowak On 12/25/2019 17:32:43 PM
[2019-12-25] MEDS ORDERED: PIPERACILLIN/TAZOBACTAM SOD 3.375 GM in D5W MINI-BAG PLUS 50 ML IV ONE (18:15)
[2019-12-25] MEDS ORDERED: NS 500 ML IV ONE (20:15)
[2019-12-25] MEDS ORDERED: NS 1,000 ML IV SCH (20:15)
[2019-12-25 23:01] VITALS: BP 117/57
--- NOTE | 2019-12-26 07:59 | ECGEPIP ---
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
== END 2019-12-25 23:16 | disposition short-term general hospital (02) ==
LOC: M ED 14:48 → EDBD 14:48 → M ED 23:16
DX: K57.20 Diverticulitis of large intestine with perforation and abscess without bleeding (principal); I45.19 Other right bundle-branch block; K76.89 Other specified diseases of liver; N32.89 Other specified disorders of bladder; I10 Essential (primary) hypertension; Z86.718 Personal history of other venous thrombosis and embolism; Z79.01 Long term (current) use of anticoagulants; Z79.899 Other long term (current) drug therapy
CPT/HCPCS: 71045; 71275; 74174; 80047; 80076; 82550; 82553; 83605; 83880; 84443; 84484; 85025; 85610; 85730; 87040; 93005; 93041; 94760; 96361; 96365; 99285; J2543; Q9967

== ENCOUNTER 2020-01-09 14:28 | Inpatient (IN) | payer MEDICARE, MEDICAID ==
[~2020-01-09] VITALS: Ht 157.5 cm; Wt 86.4 kg
[2020-01-09 18:35] VITALS: BP 118/72
--- NOTE | 2020-01-09 19:28 | HPEPDOC ---
[facility] Medical History & Physical History and Physical CHIEF COMPLAINT: HISTORY OF PRESENT ILLNESS: PAST MEDICAL HISTORY: 1. . 2. . 3. . PAST SURGICAL HISTORY: 1. . 2. . 3. . SOCIAL HISTORY: Marital status: . Resides in: Children: Employment: Tobacco use: ETOH: Illicit drug use: Tattoos done unprofessionally: . IV drug use: Other relevant social factors: FAMILY HISTORY: Father: Mother: Siblings: Children: Hereditary Diseases: Unexpected deaths due to medical reasons: ALLERGIES: Please see below. REVIEW OF SYSTEMS: CONSTITUTIONAL: . HEENT: . CARDIOVASCULAR: . RESPIRATORY: . GASTROINTESTINAL: . GENITOURINARY: . SKIN: . MUSCULOSKELETAL: . NEUROLOGICAL: . PSYCHIATRIC: . ENDOCRINE: . HEMATOLOGIC/LYMPHATIC: . HOME MEDICATIONS: Please see below. PHYSICAL EXAMINATION: VITAL SIGNS: Temperature , pulse , respiratory rate , blood pressure , pulse oximetry % on room air. GENERAL APPEARANCE: . HEENT: . CARDIOVASCULAR: . LUNGS: . ABDOMEN: . MUSCULOSKELETAL: . EXTREMITIES: . NEUROLOGICAL: . PSYCHIATRIC: . LABORATORY DATA: See below. IMAGING: MICROBIOLOGY: Please see below. ASSESSMENT: . . PLAN: 1. . Vital Signs Vital Signs Date Time Temp Pulse Resp B/P (MAP) Pulse Ox O2 Delivery O2 Flow Rate FiO2 01/09/20 18:35 99.0 95 18 118/72 (87) 95 Room Air Home Medications Scheduled Amlodipine Besylate (Amlodipine Besylate) 10 Mg Tablet, 10 MG PO DAILY Apixaban (Eliquis) 5 Mg Tablet, 10 MG PO BID Fluticasone Propionate (Flovent Hfa) 110 Mcg/Act Aer.w.adap, 2 PUFF INH RBID Mupirocin (Mupirocin) 22 Gm Oint...g., 0 DOSE TOP DAILY Nystatin (Nystop) 60 Gm Powder, 0 DOSE TOP BID Rosuvastatin Calcium (Crestor) 10 Mg Tablet, 40 MG PO DAILY [Petrolatum,White] 99 GM OINT...G., 0 DOSE TOP DAILY Allergies Coded Allergies: No Known Allergies (Unverified , 04/21/19) FRANCINE MONIQUE MD Jan 09, 2020 19:28
--- NOTE | 2020-01-09 19:29 | IPNPDOC ---
Text Note Date of Service The patient was seen on 01/09/20. VS,Bianca, I+O VS, Yonisbone, I+O Vital Signs Date Time Temp Pulse Resp B/P (MAP) Pulse Ox O2 Delivery O2 Flow Rate FiO2 01/09/20 18:35 99.0 95 18 118/72 (87) 95 Room Air FRANCINE MONIQUE MD Jan 09, 2020 19:28
[2020-01-09 20:00] VITALS: BP 142/61
[2020-01-09 20:07] LABS: HEMATOCRIT 34.2 % (36.0-47.0); HEMOGLOBIN 10.4 g/dl (12.0-15.5); MEAN CORPUSCULAR HEMOGLOBIN 28.7 pg (27.0-33.0); MEAN CORPUSCULAR HGB CONC 30.4 g/dl (32.0-36.5); MEAN CORPUSCULAR VOLUME 94.2 fl (80.0-96.0); PLATELET COUNT, AUTOMATED 372 10^3/uL (150-450); RED BLOOD COUNT 3.63 10^6/uL (4.00-5.40); WHITE BLOOD COUNT 11.7 10^3/uL (4.0-10.0)
[2020-01-09 20:28] LABS: INR 1.15
[2020-01-09] MEDS ORDERED: NYSTATIN 100,000 UNITS/GM TOPICAL PWD 15 GM TOP PRN (20:30)
[2020-01-09] MEDS ORDERED: MORPHINE 2 MG/ML 1ML VIAL (J2270) IV PRN (20:30)
[2020-01-09] MEDS ORDERED: ACETAMINOPHEN TAB 650MG DOSE (2X325MG) PO PRN (20:30)
[2020-01-09] MEDS ORDERED: ONDANSETRON 4MG/2ML VIAL IV PRN (20:30)
[2020-01-09 20:37] LABS: ALBUMIN 2.3 GM/DL (3.2-5.2); ALT/SGPT 22 U/L (12-78); BILIRUBIN,TOTAL 0.3 MG/DL (0.2-1.0); BLOOD UREA NITROGEN 16 MG/DL (7-18); CALCIUM LEVEL 8.2 MG/DL (8.8-10.2); CARBON DIOXIDE LEVEL 24 MEQ/L (21-32); CHLORIDE LEVEL 107 MEQ/L (98-107); GLOMERULAR FILTRATION RATE > 60.0 (>39); GLUCOSE, FASTING 89 MG/DL (70-100); POTASSIUM SERUM 4.7 MEQ/L (3.5-5.1); SODIUM LEVEL 137 MEQ/L (136-145); TOTAL PROTEIN 6.6 GM/DL (6.4-8.2)
[2020-01-09] MEDS ORDERED: ELIQ5TAB PO (21:11)
[2020-01-09] MEDS ORDERED: FLUT11IN INH (21:11)
[2020-01-09] MEDS ORDERED: AMLO1TAB25 PO (21:11)
[2020-01-09] MEDS ORDERED: ROSU10TA6 PO (21:12)
[2020-01-09] MEDS: APIXABAN 5 MG TAB (ELIQUIS) PO SCH (21:48)
[2020-01-09] MEDS: PIPERACILLIN/TAZOBACTAM SOD 3.375 GM in D5W MINI-BAG PLUS 50 ML IV SCH (21:49)
--- NOTE | 2020-01-09 21:51 | HPEPDOC ---
[facility] Medical History & Physical Date of Admission Jan 09, 2020 Date of Service: Jan 09, 2020 Attending Physician: FRANCINE MONIQUE MD History and Physical CHIEF COMPLAINT: [facility] Transfer for Diverticulitis s/p abscess drainage HISTORY OF PRESENT ILLNESS: Patient is a 74 year old female who originally p resented to the [facility] ER on 12/25/2019 with a complaint of shortness of breath and cough for one month and abdominal pain diffusely for 3 days. At that time she received a CT of the abdomen and pelvis which demonstrated thickening of the mid sigmoid colon with inflammatory changes suggesting diverticulitis. Also was noted 2 air containing fluid-filled masses measuring 2.3 x 1.8 x 2 cm in the abdomen and 4.4 x 4.7 x 3.9 cm in the right cul-de-sac region consistent with abscess. The patient was planned to be admitted however there was no Interventional Radiology coverage for IR drainage of the abscesses. Patient was subsequently transferred to [facility] for IR abscess drainage. The patients hospital course at [facility] is unclear as there was limited hospital records available on transfer. Records request has been made. However the patient has received IR drainage of her abscess with anterior and posterior drains placed. She reportedly had grown Salmonella species from abscess cultures and was placed on Zosyn with plans to continue for 6 weeks. The patient had also been placed on TPN during her [facility] hospitalization however her diet has been advanced to low residual diet. During the patients hospitalization at [facility] there had been mention of a malpositioned IVC filter which was placed by Dr. Weems in June 2019 for DVT. Interventional Radiology at [facility] recommended that the patient follow-up with Dr. Weems for reposition On arrival to [facility] the patient has no complaints. She is vitally stable. She does admit to some abdominal pain but is tolerable. She denies any shortness of breath or chest pain. PAST MEDICAL HISTORY: 1. Hypertension 2. Hyperlipidemia 3. History of DVT in 2016 4. Left leg DVT in 04/2016 5. History of GI bleed 6. Tobacco Abuse 7. 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 Sacral Pressure Ulcer 9. Colonic Diverticular Disease PAST SURGICAL HISTORY: 1. IR abscess drainage at [facility] 12/2019 2. Colonoscopy w/ two hyperplastic polyps removed 3. Bilateral Cataracts 4. IVC filter placement in 06/2019 SOCIAL HISTORY: Patient is a current smoker. Denies IV or illicit drug use FAMILY HISTORY: Patients sister has a history of kidney failure 2/2 infection. She has 4 sons and 2 daughters that are alive and well ALLERGIES: Please see below. REVIEW OF SYSTEMS: CONSTITUTIONAL: Denies fevers, chills, unintentional weightloss. Denies nightsweats HEENT: Denies dysphagia. Denies pain on swallowing. Denies headache CARDIOVASCULAR: Denies chest pain, palpitations, or feelings of the heart racing RESPIRATORY: Denies shortness of breath. Denies coughing. Denies wheeze GASTROINTESTINAL: Admits to abdominal pain. Denies diarrhea or constipation. denies nausea or vomiting GENITOURINARY: Denies dysuria or increased frequency SKIN: Denies rashes or lesions MUSCULOSKELETAL: Admits to chronic weakness NEUROLOGICAL: Denies changes in speech. PSYCHIATRIC: Denies depression or anxiety ENDOCRINE: Denies heat intolerance or cold intolerance HEMATOLOGIC/LYMPHATIC: Denies easy bruising or bleeding. Admits to history of DVT. Denies history of PE HOME MEDICATIONS: Please see below. PHYSICAL EXAMINATION: VITAL SIGNS: Temperature 99.0, pulse 95, respiratory rate 18, blood pressure 118/72, pulse oximetry 95% on room air. GENERAL APPEARANCE: Patient is awake, alert, and oriented. She does not appear in any acute distress. She does appear frail HEENT: Atraumatic, normocephalic. Eyes are nonicteric. Trachea is midline. Muc ous membranes are pink and moist. CARDIOVASCULAR: Normals S1. S2. Regular rate and rhythm. No clicks rubs or murmurs LUNGS: Clear vesicular breath sounds bilaterally. No wheezes, rhonchi, or rales. ABDOMEN: Soft, nondistended. Mild tenderness diffusely. Anterior drain in place. Site appears clean without erythema. Area of erythema in the intertriginous folds SKIN: Patient has a sacral/coccyx ulcer measuring 1.3 x 1 cm. Appear clean. Mild erythema surrounding. Right 2nd toe ulceration stage 1. EXTREMITIES: No edema. Full and equal pulses bilaterally NEUROLOGICAL: No focal neurological deficits PSYCHIATRIC: Mood and affect appear appropriate LABORATORY DATA: See below. IMAGING: Records from [facility] requested. Imaging from initial ER visit in [facility] MICROBIOLOGY: Please see below. ASSESSMENT: Patient is a 74 year old female who presented to the [facility] ER on 12/24 for abdominal pain and found to have two diverticular abscess. She was transferred to [facility] where she received IR drainage. Culture data from [facility] demonstrated Salmonella Species. Patient had PICC line placed and was started on Zosyn for total of 6 weeks . PLAN: 1. Colonic Diverticulitis w/ diverticular abscess -Patient has diverticulitis which appears to be resolving. She was on TPN at [facility]. Her diet has been advanced. Will continue to be advanced as tolerated -Two abscess were identified on patients original imaging. She was transferred to [facility] on 12/24 as there was no IR coverage for drainage. She has had two drains placed. An anterior and posterior drain. Culture data reportedly showed Salmonella species and the patient was started on Zosyn -Will continue Zosyn q6h. Patient will need 6 weeks of therapy. She has a PICC line placed already. Will likely need coordinated care for arrangement of antibiotics once patient is discharged home -Advance diet to low residual diet -Morphine for pain. Zofran for n/v -Records request from [facility] for Culture data and H&P/discharge summary 2. Left leg DVT in 04/2019 -Patient has had a DVT in 04/2019. She was started on Eliquis. She has also had an IVC filter placed in [place] [address] Weems. Interventional Radiology at [facility] had reportedly expressed concern that the IVC filter was malpositioned. They requested that it be looked at by Dr. Weems. -Continue Eliquis 5mg bid 3. Essential HTN -Will continue patients home Norvasc 4. Hyperlipidemia -Continue Rosuvastatin 5. Asthma/Reactive Airway Disease -Patient is on fluticasone inhaler although no documented history of PFTs to indicate asthma vs COPD. -Continue Fluticasone inhaler -Duonebs prn 6. Intertrigo -Nystatin powder prn 7. Sacral/Coccyx ulcer and right 2nd toe ulcer -Continue with wound care. Wounds appear clean and healing. weight off- loading for sacral/coccyx ulcer 8. DVT Prophylaxis -On Eliquis Vital Signs Vital Signs Date Time Temp Pulse Resp B/P (MAP) Pulse Ox O2 Delivery O2 Flow Rate FiO2 01/09/20 18:35 99.0 95 18 118/72 (87) 95 Room Air Laboratory Data Labs 24H Laboratory Tests 2 01/09/20 19:58: Nucleated Red Blood Cells % (auto) 0.0, Prothrombin Time 15.0H, Prothromb Time International Ratio 1.15, Anion Gap 6L, Glomerular Filtration Rate > 60.0, Lactic Acid Level 1.0, Calcium Level 8.2L, Total Bilirubin 0.3, Aspartate Amino Transf (AST/SGOT) 46H, Alanine Aminotransferase (ALT/SGPT) 22, Alkaline Phosphatase 69, Total Protein 6.6, Albumin 2.3L, Albumin/Globulin Ratio 0.5L CBC/BMP Laboratory Tests 01/09/20 19:58 Home Medications Scheduled Amlodipine Besylate (Amlodipine Besylate) 10 Mg Tablet, 10 MG PO DAILY Apixaban (Eliquis) 5 Mg Tablet, 5 MG PO BID Fluticasone Propionate (Flovent Hfa) 110 Mcg/Act Aer.w.adap, 2 PUFF INH BID Rosuvastatin Calcium (Rosuvastatin Calcium) 10 Mg Tablet, 10 MG PO DAILY Allergies Coded Allergies: No Known Allergies (Unverified , 04/21/19) A-FIB/CHADSVASC A-FIB History Current/History of A-Fib/PAF?: No GME ATTESTATION GME ATTESTATION My faculty preceptor for this patient encounter was physically present during the encounter and was fully available. All aspects of the patient interview, examination, medical decision making process, and medical care plan development were reviewed and approved by the faculty preceptor. The faculty preceptor is aw are and concurs with the plan as stated in the body of this note and will attest to such by his/her cosignature. ATTENDING NOTE TIME OF SERVICE 900PM I personally examined , reviewed 's H&P and agree with the findings as documented. AMINTA MCALLISTER DO Jan 09, 2020 21:50 FRANCINE MONIQUE MD Jan 09, 2020 23:41
[2020-01-09] MEDS ORDERED: IPRATROPIUM 0.5MG/ALBUTEROL 2.5MG INH SOL UD 3ML (DUONEB) NEB PRN (22:00)
[2020-01-10] VITALS: BP 127/59
[2020-01-10 04:00] VITALS: BP 131/62
[2020-01-10] MEDS: PIPERACILLIN/TAZOBACTAM SOD 3.375 GM in D5W MINI-BAG PLUS 50 ML IV SCH ×4 (04:16→21:00)
[2020-01-10 04:28] LABS: HEMATOCRIT 32.6 % (36.0-47.0); HEMOGLOBIN 10.1 g/dl (12.0-15.5); MEAN CORPUSCULAR HEMOGLOBIN 29.2 pg (27.0-33.0); MEAN CORPUSCULAR VOLUME 94.2 fl (80.0-96.0); PLATELET COUNT, AUTOMATED 371 10^3/uL (150-450); RED BLOOD COUNT 3.46 10^6/uL (4.00-5.40); WHITE BLOOD COUNT 9.8 10^3/uL (4.0-10.0)
[2020-01-10 05:17] LABS: BLOOD UREA NITROGEN 15 MG/DL (7-18); CALCIUM LEVEL 8.3 MG/DL (8.8-10.2); CARBON DIOXIDE LEVEL 28 MEQ/L (21-32); CHLORIDE LEVEL 106 MEQ/L (98-107); CREATININE FOR GFR 0.52 MG/DL (0.55-1.30); GLOMERULAR FILTRATION RATE > 60.0 (>39); GLUCOSE, FASTING 82 MG/DL (70-100); POTASSIUM SERUM 4.1 MEQ/L (3.5-5.1); SODIUM LEVEL 138 MEQ/L (136-145)
[2020-01-10 07:37] VITALS: BP 145/65
[2020-01-10] MEDS: APIXABAN 5 MG TAB (ELIQUIS) PO SCH ×2 (08:37→20:58)
[2020-01-10] MEDS: amLODIPine 10 MG TAB PO SCH (08:37)
[2020-01-10] MEDS: ROSUVASTATIN 10 MG TAB (CRESTOR) PO SCH (08:37)
[2020-01-10] MEDS ORDERED: FLUBLOK(EGG FREE)(QUAD)INFLUENZA VACC 0.5ML SYRINGE 18YRS & OLDER IM ONE (09:00)
[2020-01-10 12:00] VITALS: BP 131/60
[2020-01-10] MEDS: FLUTICASONE HFA 110 MCG 12 GM INHALER (FLOVENT) INH SCH ×2 (13:44→20:18)
[2020-01-10 16:00] VITALS: BP 126/56
--- NOTE | 2020-01-10 16:55 | IPNPDOC ---
Text Note Date of Service The patient was seen on 01/10/20. NOTE Hospitalist Progress Note Subjective: Patient was reclined in the bed moaning in the room. She was easily arousable. She is pleasant to speak with. Her primary complaint at this time is that of the presence of the posterior drain, apparently sitting on it is painful for her. She seems to be tolerating her current diet. Otherwise, she really does not have any additional complaints. The remainder of her review of systems is negative. Objective: General: Awake, alert, oriented 3. Not in any acute distress. HEENT: Head normocephalic, atraumatic, sclera are nonicteric. Hearing is grossly intact to conversation. Respiratory: Clear to auscultation bilaterally with no wheezes, rales, or rhonchi. Cardiovascular: Regular rate and rhythm, with no rubs, gallops, or murmur. Abdomen: Soft, nontender, nondistended. And she has both an anterior drain in the lower abdomen/suprapubic region, and another drain in the right posterior/low back region, both are hooked up to what appears to be some style of accordion drain, fairly little serosanguineous drainage is present in the bags. Extremities: No evidence of clubbing or cyanosis. Assessment/Plan: Colonic diverticulitis with diverticular abscess 2 - We did receive a large packet of papers from [facility], however it was largely uninformative from. There is still no discharge summary. -In the records it appears that Salmonella species was grown, and it was a plan to put her on Zosyn for 6 weeks, we're still waiting for microbiology records. PICC line already in place. Likely will need to coordinate efforts with infectious disease specialist regarding long-term antibiotics. -No interventional radiology service available today, will consult them tomorrow for evaluation of both feet drains and evaluation regarding a malpositioned IVC filter. -Morphine for pain, as needed -Zofran for nausea, as needed Left leg DVT in April 2019 -Per records it appears that her IVC filter is encroaching upon the right renal vasculature. Will contact interventional radiology tomorrow since they do not have coverage over the weekends. -Continue Eliquis 5 mg twice a day Essential hypertension -Continue home dose of Norvasc Hyperlipidemia -Continue home dose of rosuvastatin Asthma/reactive airway disease -Continue home dose of fluticasone inhaler and then doing labs on an as-needed basis Intertrigo -Nystatin powder as needed Sacral/coccyx ulcer/pressure injury, and right second toe ulcer -Present upon admission -Continue with wound care, dressing changes, turning and weight offloading for sacral pressure injury DVT prophylaxis -Eliquis VS,Fishbone, I+O VS, Fishbone, I+O Laboratory Tests 01/09/20 19:58 01/10/20 04:15 Vital Signs Date Time Temp Pulse Resp B/P (MAP) Pulse Ox O2 Delivery O2 Flow Rate FiO2 01/10/20 16:00 97.6 85 18 126/56 (79) 95 Room Air JULISSA WHIPPLE DO Jan 10, 2020 16:55
[2020-01-10 20:00] VITALS: BP 119/59
[2020-01-11] VITALS: BP 131/63
[2020-01-11 04:00] VITALS: BP 123/76
[2020-01-11] MEDS: PIPERACILLIN/TAZOBACTAM SOD 3.375 GM in D5W MINI-BAG PLUS 50 ML IV SCH ×4 (04:23→22:15)
[2020-01-11] MEDS: FLUTICASONE HFA 110 MCG 12 GM INHALER (FLOVENT) INH SCH ×2 (07:50→20:18)
[2020-01-11 08:00] VITALS: BP 128/60
[2020-01-11] MEDS: APIXABAN 5 MG TAB (ELIQUIS) PO SCH ×2 (10:17→22:16)
[2020-01-11] MEDS: ROSUVASTATIN 10 MG TAB (CRESTOR) PO SCH (10:18)
[2020-01-11] MEDS: amLODIPine 10 MG TAB PO SCH (10:18)
[2020-01-11 12:00] VITALS: BP 119/57
[2020-01-11 12:23] LABS: HEMATOCRIT 32.9 % (36.0-47.0); HEMOGLOBIN 10.2 g/dl (12.0-15.5); MEAN CORPUSCULAR HEMOGLOBIN 28.9 pg (27.0-33.0); MEAN CORPUSCULAR VOLUME 93.2 fl (80.0-96.0); PLATELET COUNT, AUTOMATED 367 10^3/uL (150-450); RED BLOOD COUNT 3.53 10^6/uL (4.00-5.40); WHITE BLOOD COUNT 9.9 10^3/uL (4.0-10.0)
[2020-01-11 13:01] LABS: BLOOD UREA NITROGEN 13 MG/DL (7-18); CARBON DIOXIDE LEVEL 27 MEQ/L (21-32); CHLORIDE LEVEL 104 MEQ/L (98-107); CREATININE FOR GFR 0.51 MG/DL (0.55-1.30); GLOMERULAR FILTRATION RATE > 60.0 (>39); GLUCOSE, FASTING 104 MG/DL (70-100); POTASSIUM SERUM 3.8 MEQ/L (3.5-5.1); SODIUM LEVEL 137 MEQ/L (136-145)
[2020-01-11 16:00] VITALS: BP 140/62
[2020-01-11 16:55] LABS: C REACTIVE PROTEIN QUANTITATIV 2.51 MG/DL (0.00-0.30)
--- NOTE | 2020-01-11 17:09 | IPNPDOC ---
Text Note Date of Service The patient was seen on 01/11/20. NOTE Hospitalist Progress Note Subjective: Patient is sitting in the chair this morning. She is awake, alert, and is an excellent historian. She is in good spirits this morning. She does not have any complaints at this time. Her review of systems is negative. Objective: General: Awake, alert, oriented 3. Not in any acute distress. HEENT: Head normocephalic, atraumatic, sclera are nonicteric. Hearing is grossly intact to conversation. Respiratory: Clear to auscultation bilaterally with no wheezes, rales, or rhonchi. Cardiovascular: Regular rate and rhythm, with no rubs, gallops, or murmur. Abdomen: Soft, nontender, nondistended, no hepatosplenomegaly appreciated. Bowel sounds present. Extremities: 2+ pulses in the radial and dorsalis pedis bilaterally. No evidence of clubbing or cyanosis. Neuro: Right leg flaccid paralysis. Right arm 4/5 strength. Dysarthria noted. Assessment: Colonic diverticulitis with diverticular abscess 2 - We did receive a large packet of papers from [facility], however it was largely uninformative. There is still no discharge summary. -In the records it appears that Salmonella species was grown, and it was a plan to put her on Zosyn for 6 weeks (until 02/09/2020). Records requested for microbiology. - 2 drains are still in place, only minimal drainage over the last 24 hours. - PICC line already in place. - Infectious Disease has been consulted, their input regarding long-term options is appreciated. 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 - I contacted Dr. Weems and she recommends scheduling outpatient followup after inpatient issues are resolved. - Continue Eliquis 5 mg twice a day Right-sided weakness -Both of the patient and the patient's daughter confirm that the patient had an MRI performed at [facility], and they were told "she did not have a stroke". Apparently a fairly thorough neurological workup was performed at [facility], once again, I have no records regarding what this entailed. It seems that these symptoms began sometime during the first week of December, approximately 2 weeks prior to her presentation to [facility] on 12/25/2019. Will await records from [facility] before repeating more workup. PT, OT consulted, their input is greatly appreciated. Essential hypertension - Pressures have been within target range. -Continue home dose of Norvasc Hyperlipidemia -Continue home dose of rosuvastatin Asthma/reactive airway disease -Continue home dose of fluticasone inhaler and then doing labs on an as-needed b asis Intertrigo -Nystatin powder as needed Sacral/coccyx ulcer/pressure injury, and right second toe ulcer -Present upon admission -Continue with wound care, dressing changes, turning and weight offloading for sacral pressure injury DVT prophylaxis -Eliquis VS,Fishbone, I+O VS, Fishbone, I+O Laboratory Tests 01/11/20 11:55 Vital Signs Date Time Temp Pulse Resp B/P (MAP) Pulse Ox O2 Delivery O2 Flow Rate FiO2 01/11/20 12:00 97.6 73 18 119/57 (77) 97 Room Air I&O- Last 24 Hours up to 6 AM 01/11/20 06:00 Intake Total 580 ml Balance 580 ml JULISSA WHIPPLE DO Jan 11, 2020 17:09
[2020-01-11 20:00] VITALS: BP 146/64
[2020-01-12] VITALS: BP 127/62
[2020-01-12 04:00] VITALS: BP 136/62
[2020-01-12] MEDS: PIPERACILLIN/TAZOBACTAM SOD 3.375 GM in D5W MINI-BAG PLUS 50 ML IV SCH ×4 (04:58→22:31)
[2020-01-12 05:15] LABS: HEMATOCRIT 32.1 % (36.0-47.0); MEAN CORPUSCULAR HEMOGLOBIN 29.1 pg (27.0-33.0); MEAN CORPUSCULAR HGB CONC 31.2 g/dl (32.0-36.5); MEAN CORPUSCULAR VOLUME 93.3 fl (80.0-96.0); PLATELET COUNT, AUTOMATED 353 10^3/uL (150-450); RED BLOOD COUNT 3.44 10^6/uL (4.00-5.40); WHITE BLOOD COUNT 6.9 10^3/uL (4.0-10.0)
[2020-01-12 05:35] LABS: BLOOD UREA NITROGEN 10 MG/DL (7-18); CALCIUM LEVEL 8.5 MG/DL (8.8-10.2); CARBON DIOXIDE LEVEL 29 MEQ/L (21-32); CHLORIDE LEVEL 108 MEQ/L (98-107); CREATININE FOR GFR 0.55 MG/DL (0.55-1.30); GLOMERULAR FILTRATION RATE > 60.0 (>39); GLUCOSE, FASTING 87 MG/DL (70-100); POTASSIUM SERUM 3.8 MEQ/L (3.5-5.1); SODIUM LEVEL 140 MEQ/L (136-145)
[2020-01-12] MEDS: SODIUM CHLORIDE 0.9% INJ 10 ML SYR IV SCH ×2 (06:19→17:34)
[2020-01-12] MEDS: FLUTICASONE HFA 110 MCG 12 GM INHALER (FLOVENT) INH SCH ×2 (07:43→20:04)
[2020-01-12 08:00] VITALS: BP 138/72
[2020-01-12] MEDS: LACTOBACILLUS ACIDOPHILUS CAP (BACID) PO SCH ×2 (08:00→17:34)
--- NOTE | 2020-01-12 08:28 | CR ---
INFECTIOUS DISEASE CONSULTATION DATE OF CONSULTATION: 01/11/2020 REQUESTING PHYSICIAN: Dr. Kirkpatrick REASON FOR CONSULTATION: Evaluation and follow up on diverticulitis status post drainage procedure, on IV Zosyn since December 24. HISTORY OF PRESENT ILLNESS: Mrs. Bledsoe is a pleasant 74-year-old female who came to [facility] Emergency Room on 12/24 complaining of shortness of breath, cough, abscess with abdominal pain a few days before admission. The patient had an angiogram of the abdomen, pelvis and chest which did not show any pulmonary embolism or aneurysm but showed liver steatosis, diverticulosis, sigmoid diverticulitis and two atrophies, one in the lower abdomen measuring 2.3 by 2 cm, another larger one in the cul-de-sac measuring 4.4 by 4.7 by 3.9 cm. There was no evidence of appendicitis. Since we did not have Interventional Radiology available, the patient was transferred to [facility] where she had two drainage units placed. Cultures reportedly were positive for Salmonella. The patient was continued on IV Zosyn and transferred back to [facility] for further care. There was some concern about her IVC filter that was malpositioned. That was placed by Dr. Weems in June of 2019 after she had multiple DVTs of the right and left common femoral veins that were extensive in April of 2019. She is doing well, has no major complaints. She does have lower extremity and upper extremity weakness along with some dysarthria. She has no fever, chills, no nausea, vomiting or diarrhea. She states that she is tolerating her food well. She has no shortness of breath or chest pain. PAST MEDICAL HISTORY: The patient's past medical history is significant for: 1. Hypertension. 2. Hyperlipidemia. 3. Right and left common femoral veins extensive DVT 04/2019. 4. Status post IVC filter 06/2019. 5. History of GI bleed. 6. Tobacco abuse. 7. Chronic right second toe ulcer for which she had an MRI of her foot which showed some narrow edema and cellulitis but no evidence of osteomyelitis in April of 2019. 8. Pressure decubitus ulcer of the sacrum. 9. Diverticulosis. 10. Recent diverticulitis with abdominal abscesses. PAST SURGICAL HISTORY: The patient's past surgical history is significant for: 1. Colonoscopy with two hyperplastic polyps removed. 2. Cataract surgery. 3. IVC filter in 06/2019. FAMILY HISTORY: Her sister has kidney failure. SOCIAL HISTORY: She is a smoker. She denies IV or illicit drug use. Her daughter is her healthcare proxy but she lives with her two sons. ALLERGIES: No known drug allergies. MEDICATIONS: * Amlodipine 10 mg daily. * Apixaban 5 mg p.o. twice daily. * Fluticasone 2 puffs inhaled twice daily. * Rosuvastatin 10 mg p.o. daily. * Piperacillin Tazobactam 3.375 grams IV q. 6 hours, currently day number seventeen. * Nystatin powder to groin area. * Tylenol as needed. LABORATORY DATA: White count 9.9, hemoglobin 10.2, hematocrit 32.9, platelets 367. Sodium 137, potassium 3.8, chloride 104, bicarbonate 27, BUN 13, creatinine 0.51, glucose 104, calcium 9, CRP 2.51, total protein 6.6, albumin 2.3, AST 46, ALT 22, alkaline phosphatase 69, PT 15, INR 1.15. IMAGING DATA: No imaging has been done since 12/24 when she came to the Emergency Room. PHYSICAL EXAMINATION: GENERAL APPEARANCE: She is a pleasant female in no acute distress. Alert and oriented x3. VITAL SIGNS: Temperature is 98.5. She has been afebrile for the last 72 hours, pulse 82, respirations 20, blood pressure 140/62, 02 sat 93% on room air. HEART: Normal S1, S2, no murmurs, rubs or gallops appreciated. LUNGS: Clear. No rales, rhonchi or wheezes. ABDOMEN: Soft, mildly tender in the left lower quadrant where there is a drain and tenderness in the right buttock area there is a small decubitus ulcer covered by an Optifoam dressing, slightly erythematous. EXTREMITIES: +2 distal pulses bilaterally. No clubbing or cyanosis. NEUROLOGICAL: Right leg weakness. The patient is not able to elevate the leg off the bed, although when I lift it for her, she is able to bend her knee. Right arm 4/5. She has slurred speech. Cranial nerves intact. IMPRESSION: This is a 74-year-old female with a history of diverticulosis and sigmoid diverticulitis that is post perforation with two abdominal abscesses that have been drained. The patient has been on IV Zosyn for over 2 weeks and has improved. There was concern of the malposition of her IVC filter that was placed by Dr. Weems in June of 2019 that needed to be repositioned but otherwise the patient is doing fairly well. She needed to be on IV antibiotics for the last 6 weeks until the end of January. The patient is bothered by her right gluteal drain and would like it removed as it is painful. PLAN: I have called the Infectious Disease Office in [place] who had seen the patient and I have asked for the records. Depending on Discharge Summary and when her last CAT scan was done, may consider obtaining a follow up CT and is not functioning, whether it needs to be flushed or repositioned or if it could be removed, depending on drainage. According to Dr. Kirkpatrick, there has been no draining in the past 24 hours but sometimes that could be related occlusion of the drain. Consult Dr. Weems regarding IVC filter and drainage tube. The patient will continue on antibiotics. I will order a CBC and a CRP weekly. IV Zosyn has been antibiotics. Starting the patient on probiotics to help her to decrease the risk of and encouraged her to eat yogurt. [facility]ITAL[facility]u
[2020-01-12] MEDS: amLODIPine 10 MG TAB PO SCH (10:08)
[2020-01-12] MEDS: ROSUVASTATIN 10 MG TAB (CRESTOR) PO SCH (10:08)
[2020-01-12] MEDS: APIXABAN 5 MG TAB (ELIQUIS) PO SCH ×2 (10:09→22:31)
[2020-01-12 12:00] VITALS: BP 150/72
--- NOTE | 2020-01-12 14:35 | IPNPDOC ---
Text Note Date of Service The patient was seen on 01/12/20. NOTE Subjective: Patient is a 74-year-old female with a PMHx of HTN, DLP, Hx of LLE DVT (2016), Colonic diverticular disease, Sacral pressure ulcer / Chronic R 2nd toe ulcer who had initially presented to [facility] ER on 12/24 with shortness of breath / cough / abdominal pain. At that time she received a CT of the abdomen and pelvis which demonstrated thickening of the mid sigmoid colon with inflammatory changes suggesting diverticulitis. Also was noted 2 air containing fluid-filled masses measuring 2.3 x 1.8 x 2 cm in the abdomen and 4.4 x 4.7 x 3.9 cm in the right cul-de-sac region consistent with abscess. The patient was planned to be admitted however there was no Interventional Radiology coverage for IR drainage of the abscesses. Patient was subsequently transferred to [facility] for IR abscess drainage. Patient has received IR drainage of her abscess with anterior and posterior drains placed. She reportedly had grown Salmonella species from abscess cultures and was placed on Zosyn with plans to continue for 6 weeks. The patient had also been placed on TPN during her [facility] hospitalization however her diet has been advanced to low residual diet. During the patients hospitalization at [facility] there had been mention of a malpositioned IVC filter which was placed by Dr. Weems in June 2019 for DVT. Interventional Radiology at [facility] recommended that the patient follow-up with Dr. Weems for reposition as an outpatient Patient's hospital course was complicated with suspected stroke and she had received an MRI on 12/29 at [facility] was negative for stroke. I have assumed care for this patient on 01/11 at 7 AM. Patient was seen and examined at the bedside. Currently patient has reported that they feel fine. They deny any nausea, vomiting, abdominal pain, chest pain, palpitations, constipation, diarrhea, or discomfort with urination. Objective: Vitals (See below) General: Lying in bed, appears comfortable, Difficulty with words, Awake / alert HEENT: NC, AT CVS: +S1S2 Lungs: Fair air entry b/l, -w/r/r Abdomen: Soft, ND, NT Extremities: - Edema, - Calf tenderness Neuro: 0/5 strength at RLE, 4/5 strength at LLE, 3/5 strength at RUE, 5/5 strength at LUE Assessment and plan: Colonic diverticulitis with diverticular abscess 2 - Patient is hemodynamically stable and afebrile - No leukocytosis - s/p drainage catheters - c/w Zosyn for 6 week course; PICC line in place - Dr. 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 - Case was initially discussed by previous provider and Dr. Weems; she recommends scheduling outpatient followup after inpatient issues are resolved. - c/w Eliquis Right-sided weakness - Patient's family has reported that this has occurred in the first week of December. Approximately 2 weeks prior to her presentation at [facility] on 12/24 - MRI 12/29 Completed at [facility]. 1. No evidence of acute intracranial pathology. 2. Mild underlying chronic microvascular ischemic changes of the white matter. 3. Mild central volume loss of brain parenchyma/atrophy. 4. Very mild bilateral mastoiditis. - c/w PT and OT Essential hypertension - BP well controlled - c/w Amlodipine DLP - c/w rosuvastatin Asthma/reactive airway disease - c/w fluticasone inhaler and then doing labs on an as-needed basis Intertrigo - c/w Nystatin powder Sacral/coccyx ulcer/pressure injury, and right second toe ulcer - Was present upon admission - c/w dressing changes, turning and weight offloading for sacral pressure injury DVT prophylaxis - c/w Eliquis Disposition: - c/w PT and OT - Will need prolonged antibiotics; likely will need rehab - Will ALC within 24 hours VS,Yonisbone, I+O VS, Fishbone, I+O Laboratory Tests 01/12/20 05:05 Vital Signs Date Time Temp Pulse Resp B/P (MAP) Pulse Ox O2 Delivery O2 Flow Rate FiO2 01/12/20 12:00 97.8 66 17 150/72 (98) 98 Room Air I&O- Last 24 Hours up to 6 AM 01/12/20 06:00 Intake Total 840 ml Output Total 150 ml Balance 690 ml YUKO WONG MD Jan 12, 2020 14:35
[2020-01-12 20:00] VITALS: BP 127/60
[2020-01-12] MEDS: SODIUM CHLORIDE 0.9% INJ 10 ML SYR IV PRN (22:31)
[2020-01-13] VITALS (7 sets, daily range): BP systolic 127–156; BP diastolic 57–82
[2020-01-13] MEDS: SODIUM CHLORIDE 0.9% INJ 10 ML SYR IV SCH ×2 (05:35→17:26)
[2020-01-13] MEDS: PIPERACILLIN/TAZOBACTAM SOD 3.375 GM in D5W MINI-BAG PLUS 50 ML IV SCH ×4 (05:35→21:51)
[2020-01-13 06:02] LABS: HEMATOCRIT 33.3 % (36.0-47.0); HEMOGLOBIN 10.2 g/dl (12.0-15.5); MEAN CORPUSCULAR HEMOGLOBIN 28.7 pg (27.0-33.0); MEAN CORPUSCULAR HGB CONC 30.6 g/dl (32.0-36.5); MEAN CORPUSCULAR VOLUME 93.5 fl (80.0-96.0); PLATELET COUNT, AUTOMATED 352 10^3/uL (150-450); RED BLOOD COUNT 3.56 10^6/uL (4.00-5.40); WHITE BLOOD COUNT 6.8 10^3/uL (4.0-10.0)
[2020-01-13 06:34] LABS: BLOOD UREA NITROGEN 9 MG/DL (7-18); CALCIUM LEVEL 9.1 MG/DL (8.8-10.2); CARBON DIOXIDE LEVEL 28 MEQ/L (21-32); CHLORIDE LEVEL 107 MEQ/L (98-107); CREATININE FOR GFR 0.52 MG/DL (0.55-1.30); GLOMERULAR FILTRATION RATE > 60.0 (>39); GLUCOSE, FASTING 90 MG/DL (70-100); POTASSIUM SERUM 3.7 MEQ/L (3.5-5.1); SODIUM LEVEL 140 MEQ/L (136-145)
[2020-01-13] MEDS: FLUTICASONE HFA 110 MCG 12 GM INHALER (FLOVENT) INH SCH ×2 (07:50→19:50)
--- NOTE | 2020-01-13 07:51 | REPVR ---
PROCEDURE INFORMATION: Exam: MR Head Without Contrast Exam date and time: 01/12/2020 9:44 PM Age: 74 years old Clinical indication: Weakness, extremity; Right; Additional info: R leg weakness TECHNIQUE: Imaging protocol: MR of the head without contrast. COMPARISON: CT Head without contrast 09/19/2017 4:43 PM FINDINGS: Brain: There is no extra-axial collection or intra-axial mass. Mild diffuse volume loss is within the range of normal for patient age. There are foci of increased T2/FLAIR hyperintensity within the periventricular and subcortical white matter, nonspecific but typically small-vessel ischemia in this age group. There is no diffusion restriction. Cerebral ventricles: Normal. No ventriculomegaly. Bones/joints: Unremarkable. Paranasal sinuses: Normal as visualized. No acute sinusitis. Mastoid air cells: There is focal fluid within mastoid air cells. Orbits: Unremarkable. Soft tissues: Unremarkable. IMPRESSION: No acute intracranial abnormality. Electronically signed by: Lindy Benavides On 01/13/2020 07:50:56 AM
--- NOTE | 2020-01-13 08:10 | REPVR ---
PROCEDURE INFORMATION: Exam: MR Cervical Spine Without Contrast Exam date and time: 01/12/2020 9:44 PM Age: 74 years old Clinical indication: Weakness; Additional info: R leg weakness TECHNIQUE: Imaging protocol: Multiplanar magnetic resonance images of the cervical spine without contrast. COMPARISON: No relevant prior studies available. FINDINGS: Vertebrae: There is straightening of the normal cervical lordosis. There is no fracture or listhesis. Spinal cord: Normal signal. No cord compression. C2-C3: There is a shallow disc osteophyte complex. There is moderate right and mild left facet hypertrophy. There is moderate right neural foraminal narrowing. C3-C4: There is a diffuse disc osteophyte complex. There is moderate facet hypertrophy. There is mild bilateral neural foraminal narrowing. C4-C5: There is a diffuse disc osteophyte complex. There is moderate facet hypertrophy. There is severe right neural foraminal narrowing. C5-C6: There is a diffuse disc osteophyte complex with a superimposed right subarticular protrusion. There is mild facet hypertrophy. There is severe right neural foraminal narrowing. C6-C7: There is a diffuse disc osteophyte complex. There is [id number] facet hypertrophy. There is severe right and mild left neural foraminal narrowing. C7-T1: No significant disc disease. No significant spinal stenosis. Vertebral arteries: Expected flow voids in the vertebral arteries. Soft tissues: Unremarkable. IMPRESSION: Degenerative disc disease and spondylosis. Changes contribute to multilevel moderate to severe neural foraminal narrowing. Electronically signed by: Lindy Benavides On 01/13/2020 08:09:32 AM
--- NOTE | 2020-01-13 08:20 | REPVR ---
PROCEDURE INFORMATION: Exam: MR Thoracic Spine Without Contrast Exam date and time: 01/12/2020 9:44 PM Age: 74 years old Clinical indication: Weakness; Additional info: R leg weakness TECHNIQUE: Imaging protocol: Multiplanar magnetic resonance images of the thoracic spine without contrast. COMPARISON: No relevant prior studies available. FINDINGS: Vertebrae: There is accentuation of the normal thoracic kyphosis. There is no fracture or listhesis. Spinal cord: Normal signal. No cord compression. Discs/Spinal canal/Neural foramina: No significant disc disease. No significant spinal canal stenosis. Soft tissues: Unremarkable. IMPRESSION: No acute abnormality. Electronically signed by: Lindy Benavides On 01/13/2020 08:20:02 AM
[2020-01-13] MEDS: ROSUVASTATIN 10 MG TAB (CRESTOR) PO SCH (09:15)
[2020-01-13] MEDS: APIXABAN 5 MG TAB (ELIQUIS) PO SCH ×2 (09:15→21:50)
[2020-01-13] MEDS: LACTOBACILLUS ACIDOPHILUS CAP (BACID) PO SCH ×2 (09:15→17:25)
[2020-01-13] MEDS: amLODIPine 10 MG TAB PO SCH (09:16)
--- NOTE | 2020-01-13 09:35 | IPNPDOC ---
Text Note Date of Service The patient was seen on 01/13/20. NOTE Subjective: Patient is a 74-year-old female with a PMHx of HTN, DLP, Hx of LLE DVT (2016), Colonic diverticular disease, Sacral pressure ulcer / Chronic R 2nd toe ulcer who had initially presented to [facility] ER on 12/24 with shortness of breath / cough / abdominal pain. At that time she received a CT of the abdomen and pelvis which demonstrated thickening of the mid sigmoid colon with inflammatory changes suggesting diverticulitis. Also was noted 2 air containing fluid-filled masses measuring 2.3 x 1.8 x 2 cm in the abdomen and 4.4 x 4.7 x 3.9 cm in the right cul-de-sac region consistent with abscess. The patient was planned to be admitted however there was no Interventional Radiology coverage for IR drainage of the abscesses. Patient was subsequently transferred to [facility] for IR abscess drainage. Patient has received IR drainage of her abscess with anterior and posterior drains placed. She reportedly had grown Salmonella species from abscess cultures and was placed on Zosyn with plans to continue for 6 weeks. The patient had also been placed on TPN during her [facility] hospitalization however her diet has been advanced to low residual diet. During the patients hospitalization at [facility] there had been mention of a malpositioned IVC filter which was placed by Dr. Weems in June 2019 for DVT. Interventional Radiology at [facility] recommended that the patient follow-up with Dr. Weems for reposition as an outpatient Patient's hospital course was complicated with suspected stroke and she had received an MRI on 12/29 at [facility] was negative for stroke. Patient was seen and examined at the bedside. Currently has had no acute events. Denies any chest pain, shortness breath or palpitations. Denies any nausea, vomiting, abdominal pain. Will be working with physical therapy. Objective: Vitals (See below) General: Lying in bed, remains comfortable, some difficulty with words, is awake, alert and oriented 3 HEENT: NC, AT CVS: +S1S2 Lungs: Fair air entry b/l, no appreciable wheezing, rhonchi or rales Abdomen: Soft, nondistended and nontender Extremities: Lower extremities are without any edema, - Calf tenderness Neuro: 0/5 strength at RLE, 4/5 strength at LLE, 3/5 strength at RUE, 5/5 strength at LUE - remains unchanged from yesterday Assessment and plan: Colonic diverticulitis with diverticular abscess 2 - Patient is hemodynamically stable and afebrile - No leukocytosis - s/p drainage catheters - c/w Zosyn for 6 week course; PICC line in place - Will get CT abdomen / pelvis to evaluate fluid collections - Dr. 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 - Case was initially discussed by previous provider and Dr. Weems; she recommends scheduling outpatient followup after inpatient issues are resolved. - c/w Eliquis Right-sided weakness / Slurred speech - no evidence of stroke - Patient's family has reported that this has occurred in the first week of December. Approximately 2 weeks prior to her presentation at [facility] on 12/24 - MRI 12/29 Completed at [facility]. 1. No evidence of acute intracranial pathology. 2. Mild underlying chronic microvascular ischemic changes of the white matter. 3. Mild central volume loss of brain parenchyma/atrophy. 4. Very mild bilateral mastoiditis. - MRI Brain 01/11: No acute intracranial abnormality. - MRI Cervical Spine 01/11: Degenerative disc disease and spondylosis. Changes contribute to multilevel moderate to severe neural foraminal narrowing. - MRI Thoracic Spine 01/11: No acute abnormality. - c/w PT and OT Essential hypertension - BP well controlled - c/w Amlodipine DLP - c/w rosuvastatin Asthma/reactive airway disease - c/w fluticasone inhaler and then doing labs on an as-needed basis Intertrigo - c/w Nystatin powder Sacral/coccyx ulcer/pressure injury, and right second toe ulcer - Was present upon admission - c/w dressing changes, turning and weight offloading for sacral pressure injury DVT prophylaxis - c/w Eliquis Disposition: - c/w PT and OT - Will need prolonged antibiotics; likely will need rehab VS,Fishbone, I+O VS, Fishbone, I+O Laboratory Tests 01/13/20 05:43 Vital Signs Date Time Temp Pulse Resp B/P (MAP) Pulse Ox O2 Delivery O2 Flow Rate FiO2 01/13/20 09:16 74 156/82 11/4/20 08:00 98.8 18 95 Room Air I&O- Last 24 Hours up to 6 AM 01/13/20 06:00 Intake Total 490 ml Output Total 0 ml Balance 490 ml YUKO WONG MD Jan 13, 2020 09:35
[2020-01-13] MEDS: GASTROGRAFIN SOLUTION 30ML PO SCH ×2 (10:34→11:09)
[2020-01-13] MEDS ORDERED: ISOVUE-370 76% 100ML VIAL As Ordered ONE (10:41)
--- NOTE | 2020-01-13 12:56 | REP ---
INDICATION: Evaluate drains / fluid collection. COMPARISON: CT 12/25/2019 TECHNIQUE: Oral Gastrografin per our bowel contrast protocol and bolus 100 mL Isovue 370 scanning through the abdomen and pelvis with coronal and sagittal reconstructions FINDINGS: CT abdomen: Lung bases show some dependent atelectatic changes on the left and subsegmental atelectasis with consolidative appearance in the right deep sulcus. No effusion. Heart size mildly prominent unchanged small hiatal hernia. Oral contrast remains in the stomach without reflux. Liver shows multiple tiny scattered hypodensities unchanged and most consistent with small cysts, stable. No biliary dilatation or solid mass. No adjacent ascites. Spleen, gallbladder, pancreas and adrenal glands also unchanged without acute finding kidneys show function in a symmetric fashion without stone or hydronephrosis. Ureters show normal course to the bladder without stone. The abdominal scan the small bowel loops were grossly intact without inflammatory changes in the mesentery colon shows scattered stool and gas without colitis or diverticulitis in the abdomen proper. Lung window review of all CT slices shows there is no perforation or free air. Bones show diffuse degenerative changes in the lumbar spine and mild in the lower thoracic region, all of this stable. Visualized ribs grossly intact. CT pelvis: Sacrum, SI joints pelvis and hips with some degenerative changes but no destructive lesion fracture or other acute finding in the lower abdomen to the right of midline transabdominal drain catheter which has cleared a fluid collection seen on the previous CT no residual fluid or mass in this region. In the right true pelvis via a transgluteal catheter the abscess collection is also completely drained. Catheter appears to abut the posterior margin of the uterine fundus. The uterus is anteverted and tilted towards the right. A a left-sided uterine fibroid or left ovary in the parametrial region with some low-density follicles within it noted and unchanged. No pelvic free fluid. No free air. The small bowel loops in the pelvis were unremarkable. There is diverticulosis scattered in the sigmoid and distal left colon. No acute inflammatory changes. The pericolonic inflammatory changes in pelvis and perirectal region are much improved. The bladder is well distended with normal wall thickness and no stone or mass. No distal ureteral dilatation or stone. No ventral hernia. IMPRESSION: 1. Anterior and posterior lower abdominal and pelvic percutaneous and transgluteal drains in place as described. They have completely drain the fluid collections/abscesses noted on previous CT. Do not see residual fluid or air. Much improved inflammatory changes in the pelvic and pericolonic fat. I do not see any other significant or new finding compared to the previous study. <Electronically signed by Andrea Sanford > 01/13/20 [id number]
--- NOTE | 2020-01-13 22:08 | REPVR ---
PROCEDURE INFORMATION: Exam: MR Lumbar Spine Without and With Contrast. Exam date and time: 01/13/2020 9:26 PM Age: 74 years old Clinical indication: Other: Right leg weakness; Patient HX: Pain in the lower back region. Also has weakness in the right leg. ; Additional info: With and without contrst TECHNIQUE: Imaging protocol: Multiplanar magnetic resonance images of the lumbar spine without and with intravenous contrast. Contrast material: PROHANCE; Contrast volume: 13 ml; Contrast route: INTRAVENOUS (IV); COMPARISON: No relevant prior studies available. FINDINGS: Vertebrae: Mild lumbar dextroscoliosis. No subluxation. No compression fracture or bone lesions. Spinal cord: Conus medullaris terminates in normal position at L1. Conus medullaris is unremarkable. L1-L2: Disc degeneration with loss of disc height and small posterior disc bulge. There is advanced facet DJD and hypertrophy. No spinal stenosis. L2-L3: Disc degeneration with disc space narrowing and broad based posterior disc bulge. There is advanced facet DJD and hypertrophy. No spinal stenosis. L3-L4: Disc degeneration with disc space narrowing and broad based posterior disc bulge. There is advanced facet DJD and hypertrophy. No spinal stenosis. L4-L5: Mild right foraminal stenosis. Disc degeneration with disc space narrowing and broad based posterior disc bulge. There is advanced facet DJD and hypertrophy. No spinal stenosis. L5-S1: Disc degeneration with small posterior disc bulge. There is advanced facet DJD and hypertrophy. No spinal or foraminal stenosis. Soft tissues: Mild intramuscular edema in the posterior paraspinal musculature. IMPRESSION: 1. Degenerative spondylosis as above. No disc herniation or spinal stenosis. 2. Mild intramuscular edema suggesting mild muscle strain. Electronically signed by: Jeffery Worthington On 01/13/2020 22:07:51 PM
[2020-01-14] VITALS: BP 167/73
[2020-01-14 04:00] VITALS: BP 135/60
[2020-01-14] MEDS: PIPERACILLIN/TAZOBACTAM SOD 3.375 GM in D5W MINI-BAG PLUS 50 ML IV SCH ×4 (04:41→21:36)
[2020-01-14] MEDS: SODIUM CHLORIDE 0.9% INJ 10 ML SYR IV SCH ×2 (05:42→17:55)
[2020-01-14 06:03] LABS: HEMATOCRIT 32.8 % (36.0-47.0); HEMOGLOBIN 10.4 g/dl (12.0-15.5); MEAN CORPUSCULAR HEMOGLOBIN 29.8 pg (27.0-33.0); MEAN CORPUSCULAR HGB CONC 31.7 g/dl (32.0-36.5); PLATELET COUNT, AUTOMATED 338 10^3/uL (150-450); RED BLOOD COUNT 3.49 10^6/uL (4.00-5.40); WHITE BLOOD COUNT 6.7 10^3/uL (4.0-10.0)
[2020-01-14 06:35] LABS: ALBUMIN 2.1 GM/DL (3.2-5.2); ALT/SGPT 12 U/L (12-78); BILIRUBIN,TOTAL 0.4 MG/DL (0.2-1.0); BLOOD UREA NITROGEN 8 MG/DL (7-18); CARBON DIOXIDE LEVEL 28 MEQ/L (21-32); CHLORIDE LEVEL 100 MEQ/L (98-107); CREATININE FOR GFR 0.63 MG/DL (0.55-1.30); GLOMERULAR FILTRATION RATE > 60.0 (>39); GLUCOSE, FASTING 295 MG/DL (70-100); POTASSIUM SERUM 3.5 MEQ/L (3.5-5.1); SODIUM LEVEL 138 MEQ/L (136-145); TOTAL PROTEIN 6.3 GM/DL (6.4-8.2)
--- NOTE | 2020-01-14 07:05 | IPN ---
"DATE: 01/12/2020 SUBJECTIVE: Nedra seems to be doing better. She complains of dysarthria and right upper and lower extremity weakness. She is scheduled for an MRI brain, cervical spine and thoracic spine. She has had no headache, no fever or chills. She is bothered by her right buttock drain that causes her discomfort. She also has a right suprapubic and left suprapubic drain. There is minimal discharge in both drains. Abdominal pain has improved. Appetite is good. LABORATORY STUDIES: White count is 6.9, hemoglobin 10, hematocrit 32.1, platelets 353, ESR 85. Sodium 140, potassium 3.8, chloride 108, bicarbonate 20, BUN 10, creatinine 0.5, glucose 87, calcium 8.5, CRP 2.51. Review of Infectious Disease consultation done at [facility] - patient was seen on 12/26 abscess cultures were positive for E-coli and Strep gallolyticus. Susceptibilities are not in the report. I have asked Records for susceptibilities from [facility]. PHYSICAL EXAMINATION: | VITAL SIGNS: Temperature is 97.8, pulse 66, respiratory rate 17, blood pressure 150/72, O2 sat 98% on room air. HEART: Normal, S1, S2 with no murmurs. LUNGS: Clear. No rales, rhonchi or wheezes. ABDOMEN: Mildly tender in the left lower quadrant. Suprapubic catheter draining the abscess in the left lower quadrant and other drain that is draining the cul-de-sac, has minimal drainage as well. She has a sacral decubitus ulcer. EXTREMITIES: No clubbing, cyanosis, or edema. There is a second toe 2 by one cm ulcer, erythematous, of the right foot. NEUROLOGICAL: Right hemiparesis and slurred speech. IMPRESSION: 1. Acute diverticulitis with secondary intraabdominal abscesses drained on 12/25 by I.R. at [facility] with cultures positive for E-coli and streptococcus gallolyticus. Final susceptibilities are pending. We have not obtained those from [facility]. The drains are not draining anything and the patient has discomfort from the buttock drain. Would suggest obtaining a consultation from [facility], Dr. Weems or Surgery to discuss whether the drains need to be repositioned or removed. Patient on IV Zosyn, anticipated for a total of 6 weeks, until February 04. 2. Right hemiparesis with dysarthria - patient seems like she had a stroke. Patient getting MRI brain and thoracic spine, cervical spine today. PLAN: Obtain followup CT of abdomen and pelvis by the end of the week. Continue to monitor weekly CBC, CRP, sed rate. Please obtain susceptibilities to ensure cures regarding pathogens that were drained from intraabdominal abscess. Consult Dr. Weems or Surgery for evaluation of drains and whether they should be removed or repositioned to be able to drain better. MTDD"
[2020-01-14] MEDS: FLUTICASONE HFA 110 MCG 12 GM INHALER (FLOVENT) INH SCH ×2 (07:13→20:29)
[2020-01-14 08:00] VITALS: BP 126/60
[2020-01-14] MEDS: APIXABAN 5 MG TAB (ELIQUIS) PO SCH ×2 (09:09→21:36)
[2020-01-14] MEDS: ROSUVASTATIN 10 MG TAB (CRESTOR) PO SCH (09:09)
[2020-01-14] MEDS: amLODIPine 10 MG TAB PO SCH (09:09)
[2020-01-14] MEDS: LACTOBACILLUS ACIDOPHILUS CAP (BACID) PO SCH ×2 (09:10→17:55)
--- NOTE | 2020-01-14 10:50 | IPNPDOC ---
Text Note Date of Service The patient was seen on 01/14/20. 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 At that time she received a CT of the abdomen and pelvis which demonstrated thickening of the mid sigmoid colon with inflammatory changes suggesting diverticulitis. Also was noted 2 air containing fluid-filled masses measuring 2.3 x 1.8 x 2 cm in the abdomen and 4.4 x 4.7 x 3.9 cm in the right cul-de-sac region consistent with abscess. The patient was planned to be admitted however there was no Interventional Radiology coverage for IR drainage of the abscesses. Patient was subsequently transferred to [facility] [place], operated by [facility] for IR abscess drainage. Patient has received IR drainage of her abscess with anterior and posterior drains placed. She reportedly had grown Salmonella species from abscess cultures and was placed on Zosyn with plans to continue for 6 weeks. The patient had also been placed on TPN during her [facility] hospitalization however her diet has been advanced to low residual diet. During the patients hospitalization at [facility] there had been mention of a malpositioned IVC filter which was placed by Dr. Weems in June 2019 for DVT. Interventional Radiology at [facility] recommended that the patient follow-up with Dr. Weems for reposition as an outpatient Patient's hospital course was complicated with suspected stroke and she had received an MRI on 12/29 at [facility] was negative for stroke. Patient was seen and examined at the bedside. Patient denies any chest pain, shortness breath, palpitations. Denies any nausea, vomiting, abdominal pain as per nursing staff. Patient has had several loose bowel movements yesterday. Objective: Vitals (See below) General: Lying in bed, does not appear to be in any acute distress, is com fortable, is awake, alert and oriented 3 HEENT: NC, AT CVS: +S1S2 Lungs: Air entry is fair bilaterally without any evidence of rhonchi, crackles or wheezing Abdomen: Remains soft without any distention or tenderness Extremities: No edema of lower extremities, - Calf tenderness Neuro: 0/5 strength at RLE, 4/5 strength at LLE, 3/5 strength at RUE, 5/5 strength at LUE - remains unchanged from yesterday Assessment and plan: s/p Colonic diverticulitis with diverticular abscess 2 - Patient is hemodynamically stable and afebrile - No leukocytosis - s/p drainage catheters - CT abdomen / pelvis 01/12: 1. Anterior and posterior lower abdominal and pelvic percutaneous and transgluteal drains in place as described. They have completely drain the fluid collections/abscesses noted on previous CT. Do not see residual fluid or air. Much improved inflammatory changes in the pelvic and pericolonic fat. I do not see any other significant or new finding compared to the previous study. - Drains were discontinued by IR on 01/12 - Dr. 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 - Case was initially discussed by previous provider and Dr. Weems; she recommends scheduling outpatient followup after inpatient issues are resolved. 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 Approximately 2 weeks prior to her presentation at [facility] on 12/24 - Unable to confirm diagnosis until confirmed as an outpatient with nerve conduction studies - MRI 12/29 Completed at [facility]. 1. No evidence of acute intracranial pathology. 2. Mild underlying chronic microvascular ischemic changes of the white matter. 3. Mild central volume loss of brain parenchyma/atrophy. 4. Very mild bilateral mastoiditis. - MRI Brain 01/11: No acute intracranial abnormality. - MRI Cervical Spine 01/11: Degenerative disc disease and spondylosis. Changes contribute to multilevel moderate to severe neural foraminal narrowing. - MRI Thoracic Spine 01/11: No acute abnormality. - c/w PT and OT - Neurology on consultation; will have outpatient follow up for nerve conduction studies Essential hypertension - BP well controlled - c/w Amlodipine DLP - c/w rosuvastatin Asthma/reactive airway disease - c/w fluticasone inhaler and then doing labs on an as-needed basis Intertrigo - c/w Nystatin powder Sacral/coccyx ulcer/pressure injury, and right second toe ulcer - Was present upon admission - c/w dressing changes, turning and weight offloading for sacral pressure injury DVT prophylaxis - c/w Eliquis Disposition: - c/w PT and OT - Will need prolonged antibiotics; likely will need rehab VS,Fishbone, I+O VS, Fishbone, I+O Laboratory Tests 01/14/20 05:41 Vital Signs Date Time Temp Pulse Resp B/P (MAP) Pulse Ox O2 Delivery O2 Flow Rate FiO2 01/14/20 09:09 75 126/60 01/14/20 08:00 97.7 16 94 Room Air I&O- Last 24 Hours up to 6 AM 01/14/20 06:00 Intake Total 700 ml Output Total 0 ml Balance 700 ml YUKO WONG MD Jan 14, 2020 10:50
[2020-01-14 12:02] VITALS: BP 136/61
[2020-01-14 14:00] VITALS: BP 134/60
--- NOTE | 2020-01-14 14:57 | CR ---
NEUROLOGY CONSULTATION DATE OF CONSULTATION: 01/13/2020 REASON FOR CONSULTATION: Right leg weakness. HISTORY OF PRESENT ILLNESS: The patient is a 74-year-old female with a past medical history significant for diverticulitis status post abscess drainage admitted to [facility] on December 25, 2019 with shortness of breath and abdominal pain. During the hospital stay the patient has been experiencing weakness in the right lower extremity. She has had work-up at [facility] which was negative for a stroke. She states that the symptoms got better then she again has weakness today. She clarifies that the weakness has been ongoing for at least a month. She is noted to have significant atrophy of hand intrinsic muscles. She has weakness of the upper extremities and the lower extremities right side moreso than the left. The patient has ankle dorsiflexion weakness of the left lower extremity moreso than quadriceps and iliopsoas. She has significant weakness of the right deltoid bicep and tricep despite being hyperreflexic. MN of the cervical and thoracic spine did not reveal any acute abnormality, there was no cord compression. MRI of the brain is negative. 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 The patient will need further work-up including EMG and nerve conduction studies as an outpatient. The patient will need an MRI of the lumbosacral spine. The patient has diffuse right lower extremity weakness. She has inability to raise the leg off of the bed. She cannot do much other than wiggle her toes slightly and flex and extend at the ankle very minimally. Reflexes at the right patella and Achilles are absent. Patient is presenting with symptoms of mixed upper and lower motor neuron findings. She denies any diplopia. She states she does not have any dysphagia, but does have difficulty with her speech. Her speech appears to be spastic and dysarthric. PAST MEDICAL HISTORY: 1. Hypertension. 2. Hyperlipidemia. 3. History of DVT in 2017/left leg DVT April,. 4. History of GI bleed. 5. Tobacco abuse. 6. Chronic right second toe ulcer. 7. Sacral pressure ulcer. 8. Chronic diverticular disease. PAST SURGICAL HISTORY: 1. IR abscess drainage December,. 2. Colonoscopy with 2 hyperplastic polyps removed. 3. Bilateral cataract surgery. 4. IVC filter placement 06/2019. SOCIAL HISTORY: Patient is a smoker. Denies I.V. drug abuse. Denies recreational drug abuse. Denies any alcohol abuse. FAMILY HISTORY: Noncontributory. ALLERGIES: No known drug allergies. HOME MEDICATIONS: * Eliquis 5 mg by mouth twice a day. * Rosuvastatin. * Fluticasone. * Amlodipine. PHYSICAL EXAMINATION: Blood pressure 152/67, pulse rate 79, respiratory rate 18, temperature 97.7 degrees Fahrenheit, oxygenation is 95% on room air. Patient is oriented to person, place and time. Speech and language comprehension are intact with spastic dysarthria and minimal fasciculations are noted of the tongue. Patient has 4- weakness in the right bicep, tricep and 4+ weakness in the deltoid. The patient has reasonable 5/5 strength in the left bicep, tricep and 4+ weakness in the deltoid. The patient has 0/5 strength of the right lower extremity and has 5/5 quadricep strength in the left lower extremity and iliopsoas with a 4+ strength in the left ankle dorsiflexion. Deep tendon reflexes are 3+ throughout, hyperreflexic with absent right patella and Achilles reflex. Babinski signs are equivocal. Sensory is intact to light touch in all 4 extremities. There is no loss of sensation. Romberg test and gait deferred. There is no ataxia or dysmetria on finger to nose. The patient has neck flexion weakness of grade 4/5. Extraocular movements are intact, pupils are round and reaction. Tongue is midline. Hearing is equal to finger rub. There is no loss of sensation to light touch in the patient's arms and legs or in V1, V2, V3. There is no facial weakness. 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 PLAN: Consider starting empiric riluzole 50 mg by mouth twice a day, follow up liver function tests. Recommend outpatient EMG nerve conduction study of bilateral upper and lower extremities. Recommend management of dysarthria. Follow up for any progressive dysphagia. Case discussed with patient's primary care team Dr. Middleton. Patient can be seen in the outpatient neurology clinic within 2-4 weeks of discharge. AMBROCIO
[2020-01-14 22:00] VITALS: BP 109/57
[2020-01-15] MEDS: PIPERACILLIN/TAZOBACTAM SOD 3.375 GM in D5W MINI-BAG PLUS 50 ML IV SCH ×4 (04:03→21:04)
[2020-01-15] MEDS: SODIUM CHLORIDE 0.9% INJ 10 ML SYR IV SCH ×2 (05:53→17:36)
[2020-01-15 06:00] VITALS: BP 126/84
[2020-01-15 06:16] LABS: HEMATOCRIT 33.5 % (36.0-47.0); HEMOGLOBIN 10.5 g/dl (12.0-15.5); MEAN CORPUSCULAR HEMOGLOBIN 29.1 pg (27.0-33.0); MEAN CORPUSCULAR HGB CONC 31.3 g/dl (32.0-36.5); MEAN CORPUSCULAR VOLUME 92.8 fl (80.0-96.0); PLATELET COUNT, AUTOMATED 343 10^3/uL (150-450); RED BLOOD COUNT 3.61 10^6/uL (4.00-5.40); WHITE BLOOD COUNT 6.6 10^3/uL (4.0-10.0)
[2020-01-15 06:45] LABS: BLOOD UREA NITROGEN 9 MG/DL (7-18); CALCIUM LEVEL 8.7 MG/DL (8.8-10.2); CARBON DIOXIDE LEVEL 29 MEQ/L (21-32); CHLORIDE LEVEL 108 MEQ/L (98-107); CREATININE FOR GFR 0.56 MG/DL (0.55-1.30); GLOMERULAR FILTRATION RATE > 60.0 (>39); GLUCOSE, FASTING 93 MG/DL (70-100); POTASSIUM SERUM 3.9 MEQ/L (3.5-5.1); SODIUM LEVEL 141 MEQ/L (136-145)
[2020-01-15] MEDS: FLUTICASONE HFA 110 MCG 12 GM INHALER (FLOVENT) INH SCH ×2 (07:25→19:09)
--- NOTE | 2020-01-15 07:32 | IPN ---
INFECTIOUS DISEASE PROGRESS NOTE DATE: 01/14/2020 SUBJECTIVE: Nedra seems to be doing well. Her drains were removed yesterday after she had a follow up CT abdomen and pelvis which did not show any residual collection and abscesses. There is no residual fluid or air. There is improved inflammatory changes in the pelvic and pericolonic fat. The patient is feeling better. She is being evaluated for rehabilitation for right sided weakness and being worked up by Neurology for underlying pathology. MRI of the lumbar spine, degenerative spondylosis with no disk herniation or spinal stenosis. Brain MRI done on 01/12/20 showed no acute intracranial abnormalities. Cervical and thoracic spine MRI shows only degenerative disk disease with moderate to severe foramen narrowing at C-6/C-7. PHYSICAL EXAMINATION: VITAL SIGNS: Temperature is 97.6, pulse 90, respirations 17, blood pressure 134/60, O2 sat 100% on room air. HEART: Normal S1, S2, no murmurs, rubs or gallops. LUNGS: Clear. No rales, rhonchi or wheezes. ABDOMEN: Soft, mildly tender in the left lower quadrant. No hepatosplenomegaly. Drain was removed from the suprapubic area. There is a small opening measuring half a cm with minimal serosanguinous discharge. Pelvic drain was removed. She has a sacral decubitus ulcer measuring about 2.5 by one cm right in the buttock crease. IMPRESSION: 1. Intraabdominal abscesses from colonic diverticulitis status post drainage procedure. CT follow up done on 01/12 showed no residual collection and therefore drains were removed since they were not draining. The patient had blood cultures that were positive for actinomyces and cultures of the intraabdominal positive for E-coli and streptococcus gallolyticus. She will be treated for a total of 6 weeks with IV Zosyn for broad spectrum coverage of all pathogens. 2. Left sided DVT in April of 2019 has IVC filter with concern of encroaching of the right renal vasculature. This will be followed up by Dr. Weems. 3. Left sided weakness without any findings on brain MRI to explain that. The patient is followed with Neurology and being evaluated for rehabilitation and acute rehab. LABORATORY STUDIES: White count 6.7, hemoglobin 10.4, hematocrit 32.8, platelets 338, ESR 85. Sodium 138, potassium 3.5, chloride 100, bicarbonate 28, BUN 8, creatinine 0.63, glucose 295, calcium 8, AST 10, ALT 12, alkaline phosphatase 57, total protein 6.3, albumin 2.1. CRP on 01/10 was 2.5. PLAN: Continue with IV Zosyn for a total of 6 weeks. End of therapy should be around early February as she started antibiotics on 12/24. Drains were removed. We have evaluation or discharge home depending if she is not admitted to acute rehab, family will learn how to do IV Zosyn that could be given as a continuous pump. We will discuss with Hospitalist tomorrow. AMBROCIO
[2020-01-15] MEDS: LACTOBACILLUS ACIDOPHILUS CAP (BACID) PO SCH ×2 (09:04→17:36)
[2020-01-15] MEDS: APIXABAN 5 MG TAB (ELIQUIS) PO SCH ×2 (09:04→21:04)
[2020-01-15] MEDS: ROSUVASTATIN 10 MG TAB (CRESTOR) PO SCH (09:04)
[2020-01-15] MEDS: amLODIPine 10 MG TAB PO SCH (09:04)
[2020-01-15 10:00] VITALS: BP 135/49
--- NOTE | 2020-01-15 13:41 | IPNPDOC ---
Text Note Date of Service The patient was seen on 01/15/20. 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 At that time she received a CT of the abdomen and pelvis which demonstrated thickening of the mid sigmoid colon with inflammatory changes suggesting diverticulitis. Also was noted 2 air containing fluid-filled masses measuring 2.3 x 1.8 x 2 cm in the abdomen and 4.4 x 4.7 x 3.9 cm in the right cul-de-sac region consistent with abscess. The patient was planned to be admitted however there was no Interventional Radiology coverage for IR drainage of the abscesses. Patient was subsequently transferred to [facility] [place], operated by [facility] for IR abscess drainage. Patient has received IR drainage of her abscess with anterior and posterior drains placed. She reportedly had grown Salmonella species from abscess cultures and was placed on Zosyn with plans to continue for 6 weeks. The patient had also been placed on TPN during her [facility] hospitalization however her diet has been advanced to low residual diet. During the patients hospitalization at [facility] there had been mention of a malpositioned IVC filter which was placed by Dr. Weems in June 2019 for DVT. Interventional Radiology at [facility] recommended that the patient follow-up with Dr. Weems for reposition as an outpatient Patient's hospital course was complicated with suspected stroke and she had received an MRI on 12/[address] [facility] was negative for stroke. Patient was seen and examined at the bedside. Patient has had an uneventful evening. She denies any chest pain, difficulty breathing or cough. Denies any nausea, vomiting. Has been tolerating her diet. Denies any abdominal discomfort. Patient has had 2 bowel movements yesterday. Objective: Vitals (See below) General: Lying in bed, remains comfortable, awake / alert, oriented x 3 HEENT: NC, AT CVS: +S1S2 Lungs: Air entry is fair bilaterally without any auscultated rhonchi, crackles or wheezing Abdomen: Remains soft, no distention or tenderness Extremities: Lower extremities are free of any pitting edema Neuro: 0/5 strength at RLE, 4/5 strength at LLE - remains unchanged from yesterday Assessment and plan: s/p Colonic diverticulitis with diverticular abscess 2 - Hemodynamically stable and afebrile - No leukocytosis - s/p drainage catheters - CT abdomen / pelvis 01/12: 1. Anterior and posterior lower abdominal and pelvic percutaneous and transgluteal drains in place as described. They have compl etely drain the fluid collections/abscesses noted on previous CT. Do not see residual fluid or air. Much improved inflammatory changes in the pelvic and pericolonic fat. I do not see any other significant or new finding compared to the previous study. - Drains were discontinued by IR on 01/12 - Dr. 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 - Case was initially discussed by previous provider and Dr. Weems; she recommends scheduling outpatient followup after inpatient issues are resolved. 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 Approximately 2 weeks prior to her presentation at [facility] on 12/24 - Unable to confirm diagnosis until confirmed as an outpatient with nerve conduction studies - MRI 12/[address] [facility]. 1. No evidence of acute intracranial pathology. 2. Mild underlying chronic microvascular ischemic changes of the white matter. 3. Mild central volume loss of brain parenchyma/atrophy. 4. Very mild bilateral mastoiditis. - MRI Brain 01/11: No acute intracranial abnormality. - MRI Cervical Spine 01/11: Degenerative disc disease and spondylosis. Changes contribute to multilevel moderate to severe neural foraminal narrowing. - MRI Thoracic Spine 01/11: No acute abnormality. - c/w PT and OT - Neurology on consultation; will have outpatient follow up for nerve conduction studies Essential hypertension - BP well controlled - c/w Amlodipine DLP - c/w Rosuvastatin Asthma/reactive airway disease - c/w fluticasone inhaler and then doing labs on an as-needed basis Intertrigo - c/w Nystatin powder Sacral/coccyx ulcer/pressure injury, and right second toe ulcer - Was present upon admission - c/w dressing changes, turning and weight offloading for sacral pressure injury DVT prophylaxis - c/w Eliquis Disposition: - c/w PT and OT - Will need prolonged antibiotics; likely will need rehab VS,Fishbone, I+O VS, Fishbone, I+O Laboratory Tests 01/15/20 06:06 Vital Signs Date Time Temp Pulse Resp B/P (MAP) Pulse Ox O2 Delivery O2 Flow Rate FiO2 01/15/20 10:00 97.9 78 17 135/49 (77) 96 Room Air I&O- Last 24 Hours up to 6 AM 01/15/20 06:00 Intake Total 960 ml Output Total 0 ml Balance 960 ml YUKO WONG MD Jan 15, 2020 13:41
[2020-01-15 14:00] VITALS: BP 135/65
[2020-01-15 18:00] VITALS: BP 134/55
[2020-01-15 22:00] VITALS: BP 129/54
[2020-01-15] MEDS: SODIUM CHLORIDE 0.9% INJ 10 ML SYR IV PRN (22:32)
[2020-01-16 02:00] VITALS: BP 127/53
[2020-01-16] MEDS: PIPERACILLIN/TAZOBACTAM SOD 3.375 GM in D5W MINI-BAG PLUS 50 ML IV SCH ×4 (03:44→21:26)
[2020-01-16] MEDS: SODIUM CHLORIDE 0.9% INJ 10 ML SYR IV SCH ×2 (05:12→18:16)
[2020-01-16 06:00] VITALS: BP 121/52
[2020-01-16 06:52] LABS: HEMATOCRIT 33.9 % (36.0-47.0); HEMOGLOBIN 10.9 g/dl (12.0-15.5); MEAN CORPUSCULAR HEMOGLOBIN 29.7 pg (27.0-33.0); MEAN CORPUSCULAR HGB CONC 32.2 g/dl (32.0-36.5); MEAN CORPUSCULAR VOLUME 92.4 fl (80.0-96.0); PLATELET COUNT, AUTOMATED 334 10^3/uL (150-450); RED BLOOD COUNT 3.67 10^6/uL (4.00-5.40); WHITE BLOOD COUNT 5.8 10^3/uL (4.0-10.0)
[2020-01-16 07:08] LABS: BLOOD UREA NITROGEN 9 MG/DL (7-18); CALCIUM LEVEL 8.4 MG/DL (8.8-10.2); CARBON DIOXIDE LEVEL 30 MEQ/L (21-32); CHLORIDE LEVEL 109 MEQ/L (98-107); CREATININE FOR GFR 0.57 MG/DL (0.55-1.30); GLOMERULAR FILTRATION RATE > 60.0 (>39); GLUCOSE, FASTING 85 MG/DL (70-100); POTASSIUM SERUM 3.8 MEQ/L (3.5-5.1); SODIUM LEVEL 142 MEQ/L (136-145)
[2020-01-16] MEDS: FLUTICASONE HFA 110 MCG 12 GM INHALER (FLOVENT) INH SCH ×2 (07:35→19:35)
[2020-01-16] MEDS: LACTOBACILLUS ACIDOPHILUS CAP (BACID) PO SCH ×2 (09:15→18:17)
[2020-01-16] MEDS: ROSUVASTATIN 10 MG TAB (CRESTOR) PO SCH (09:15)
[2020-01-16] MEDS: APIXABAN 5 MG TAB (ELIQUIS) PO SCH ×2 (09:15→21:26)
[2020-01-16] MEDS: amLODIPine 10 MG TAB PO SCH (09:16)
--- NOTE | 2020-01-16 09:36 | IPNPDOC ---
Text Note Date of Service The patient was seen on 01/16/20. 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 At that time she received a CT of the abdomen and pelvis which demonstrated thickening of the mid sigmoid colon with inflammatory changes suggesting diverticulitis. Also was noted 2 air containing fluid-filled masses measuring 2.3 x 1.8 x 2 cm in the abdomen and 4.4 x 4.7 x 3.9 cm in the right cul-de-sac region consistent with abscess. The patient was planned to be admitted however there was no Interventional Radiology coverage for IR drainage of the abscesses. Patient was subsequently transferred to [facility] for IR abscess drainage. Patient has received IR drainage of her abscess with anterior and posterior drains placed. She reportedly had grown Salmonella species from abscess cultures and was placed on Zosyn with plans to continue for 6 weeks. The patient had also been placed on TPN during her [facility] hospitalization however her diet has been advanced to low residual diet. During the patients hospitalization at [facility] there had been mention of a malpositioned IVC filter which was placed by Dr. Weems in June 2019 for DVT. Interventional Radiology at [facility] recommended that the patient follow-up with Dr. Weems for reposition as an outpatient Patient's hospital course was complicated with suspected stroke and she had received an MRI on 12/29 at [facility] was negative for stroke. Patient was seen and examined at the bedside. Patient was seen sitting up eating breakfast. She denies any chest pain, shortness of breath or palpitations. Has not experience any nausea, vomiting or abdominal pain. Denies any further diarrhea. Objective: Vitals (See below) General: Sitting up in bed eating breakfast, appears comfortable, AAOx3 HEENT: NC, AT CVS: +S1S2 Lungs: Auscultation does not reveal any wheezing, rhonchi or crackles and appears to be fair bilaterally Abdomen: Abdomen remains soft without distention or tenderness Extremities: No edema appreciated Neuro: RLE: 0-1/5, LLE: 4/5 Assessment and plan: s/p Colonic diverticulitis with diverticular abscess 2 - Remains hemodynamically stable and afebrile; No leukocytosis - CT abdomen / pelvis 01/12: 1. Anterior and posterior lower abdominal and pelvic percutaneous and transgluteal drains in place as described. They have completely drain the fluid collections/abscesses noted on previous CT. Do not see residual fluid or air. Much improved inflammatory changes in the pelvic and pericolonic fat. I do not see any other significant or new finding compared to the previous study. - Drains were discontinued by IR on 01/12 - Dr. Alvarado (ID) on consultation; c/w Zosyn for 6 week course; PICC line in place - Will continue to work with PT and OT; patient wants to be transitioned home with home services, if unable to go to acute rehabilitation Left leg DVT in April 2019 (Hx of recurrent DVT without hx of cancer or hypercoagulable disorder) - Per records it appears that her IVC filter is encroaching upon the right renal vasculature. - Case was initially discussed by previous provider and Dr. Weems; she recommends scheduling outpatient followup after inpatient issues are resolved. 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 Approximately 2 weeks prior to her presentation at [facility] on 12/24 - Unable to confirm diagnosis until confirmed as an outpatient with nerve conduction studies - MRI 12/29 Completed at [facility]. 1. No evidence of acute intracranial pathology. 2. Mild underlying chronic microvascular ischemic changes of the white matter. 3. Mild central volume loss of brain parenchyma/atrophy. 4. Very mild bilateral mastoiditis. - MRI Brain 01/11: No acute intracranial abnormality. - MRI Cervical Spine 01/11: Degenerative disc disease and spondylosis. Changes contribute to multilevel moderate to severe neural foraminal narrowing. - MRI Thoracic Spine 01/11: No acute abnormality. - c/w PT and OT - Neurology on consultation; will have outpatient follow up for nerve conduction studies Essential hypertension - BP well controlled - c/w Amlodipine DLP - c/w Rosuvastatin Asthma/reactive airway disease - c/w fluticasone inhaler and then doing labs on an as-needed basis Intertrigo - c/w Nystatin powder Sacral/coccyx ulcer/pressure injury, and right second toe ulcer - Was present upon admission - c/w dressing changes, turning and weight offloading for sacral pressure injury DVT prophylaxis - c/w Eliquis Disposition: - c/w PT and OT VS,Fishbone, I+O VS, Yonisbone, I+O Laboratory Tests 01/16/20 06:25 Vital Signs Date Time Temp Pulse Resp B/P (MAP) Pulse Ox O2 Delivery O2 Flow Rate FiO2 01/16/20 09:16 83 129/55 01/16/20 06:00 98.5 18 95 Room Air I&O- Last 24 Hours up to 6 AM 01/16/20 06:00 Intake Total 1640 ml Output Total 0 ml Balance 1640 ml YUKO WONG MD Jan 16, 2020 09:35
[2020-01-16 10:00] VITALS: BP 131/57
[2020-01-16] MEDS: SODIUM CHLORIDE 0.9% INJ 10 ML SYR IV PRN (11:09)
[2020-01-16 14:00] VITALS: BP 132/55
[2020-01-16 18:00] VITALS: BP 131/56
[2020-01-16 22:00] VITALS: BP 139/63
[2020-01-17] MEDS: PIPERACILLIN/TAZOBACTAM SOD 3.375 GM in D5W MINI-BAG PLUS 50 ML IV SCH ×4 (03:53→22:22)
[2020-01-17] MEDS: SODIUM CHLORIDE 0.9% INJ 10 ML SYR IV SCH ×2 (05:30→18:34)
[2020-01-17 05:42] LABS: HEMATOCRIT 34.6 % (36.0-47.0); HEMOGLOBIN 10.8 g/dl (12.0-15.5); MEAN CORPUSCULAR HEMOGLOBIN 29.2 pg (27.0-33.0); MEAN CORPUSCULAR HGB CONC 31.2 g/dl (32.0-36.5); MEAN CORPUSCULAR VOLUME 93.5 fl (80.0-96.0); PLATELET COUNT, AUTOMATED 336 10^3/uL (150-450); WHITE BLOOD COUNT 6.3 10^3/uL (4.0-10.0)
[2020-01-17 06:00] VITALS: BP 149/65
[2020-01-17 06:05] LABS: BLOOD UREA NITROGEN 10 MG/DL (7-18); C REACTIVE PROTEIN QUANTITATIV 0.43 MG/DL (0.00-0.30); CALCIUM LEVEL 8.5 MG/DL (8.8-10.2); CARBON DIOXIDE LEVEL 28 MEQ/L (21-32); CHLORIDE LEVEL 108 MEQ/L (98-107); GLOMERULAR FILTRATION RATE > 60.0 (>39); GLUCOSE, FASTING 95 MG/DL (70-100); POTASSIUM SERUM 3.5 MEQ/L (3.5-5.1); SODIUM LEVEL 140 MEQ/L (136-145)
[2020-01-17 06:10] LABS: ERYTHROCYTE SEDIMENTATION RATE 70 mm/hr (0-30)
[2020-01-17] MEDS: FLUTICASONE HFA 110 MCG 12 GM INHALER (FLOVENT) INH SCH ×2 (07:57→19:27)
[2020-01-17] MEDS: LACTOBACILLUS ACIDOPHILUS CAP (BACID) PO SCH ×2 (09:31→18:34)
[2020-01-17] MEDS: APIXABAN 5 MG TAB (ELIQUIS) PO SCH ×2 (09:32→21:16)
[2020-01-17] MEDS: ROSUVASTATIN 10 MG TAB (CRESTOR) PO SCH (09:32)
[2020-01-17] MEDS: amLODIPine 10 MG TAB PO SCH (09:33)
--- NOTE | 2020-01-17 10:10 | IPNPDOC ---
Text Note Date of Service The patient was seen on 01/17/20. 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 At that time she received a CT of the abdomen and pelvis which demonstrated thickening of the mid sigmoid colon with inflammatory changes suggesting diverticulitis. Also was noted 2 air containing fluid-filled masses measuring 2.3 x 1.8 x 2 cm in the abdomen and 4.4 x 4.7 x 3.9 cm in the right cul-de-sac region consistent with abscess. The patient was planned to be admitted however there was no Interventional Radiology coverage for IR drainage of the abscesses. Patient was subsequently transferred to [facility] for IR abscess drainage. Patient has received IR drainage of her abscess with anterior and posterior drains placed. She reportedly had grown Salmonella species from abscess cultures and was placed on Zosyn with plans to continue for 6 weeks. The patient had also been placed on TPN during her [facility] hospitalization however her diet has been advanced to low residual diet. During the patients hospitalization at [facility] there had been mention of a malpositioned IVC filter which was placed by Dr. Weems in June 2019 for DVT. Interventional Radiology at [facility] recommended that the patient follow-up with Dr. Weems for reposition as an outpatient Patient's hospital course was complicated with suspected stroke and she had received an MRI on 12/29 at [facility] was negative for stroke. Patient was seen and examined at the bedside. This morning patient reports she feels fine. Denies any CP, SOB or palpitations. Denies any N/V, abdominal pain. Patient reports constipation - she reports her last BM was 2 days ago. Objective: Vitals (See below) General: Laying in bed, appears comfortable and in no acute distress, AAOx3 HEENT: NC, AT CVS: +S1S2 Lungs: There is fair air entry b/l, no evidence of wheezing / rhonchi / rales Abdomen: Abdomen again is soft, no distention is noted, no palpable tenderness Extremities: No evidence of LE edema Neuro: Remains unchanged - RLE: 0-1/5, LLE: 4/5 Assessment and plan: s/p Colonic diverticulitis with diverticular abscess 2 - Remains hemodynamically stable and afebrile; No leukocytosis - CT abdomen / pelvis 01/12: 1. Anterior and posterior lower abdominal and pelvic percutaneous and transgluteal drains in place as described. They have completely drain the fluid collections/abscesses noted on previous CT. Do not see residual fluid or air. Much improved inflammatory changes in the pelvic and pericolonic fat. I do not see any other significant or new finding compared to the previous study. - Drains were discontinued by IR on 01/12 - Dr. Alvarado (ID) on consultation; c/w Zosyn for 6 week course; PICC line in place - c/w PT and OT; patient wants to be transitioned home with home services, if unable to go to acute rehabilitation Constipation - Will start bowel regimen Left leg DVT in April 2019 (Hx of recurrent DVT without hx of cancer or hypercoagulable disorder) - Per records it appears that her IVC filter is encroaching upon the right renal vasculature. - Case was initially discussed by previous provider and Dr. Weems; she re commends scheduling outpatient followup after inpatient issues are resolved. 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 Approximately 2 weeks prior to her presentation at [facility] on 12/24 - Unable to confirm diagnosis until confirmed as an outpatient with nerve conduction studies - MRI 12/29 Completed at [facility]. 1. No evidence of acute intracranial pat hology. 2. Mild underlying chronic microvascular ischemic changes of the white matter. 3. Mild central volume loss of brain parenchyma/atrophy. 4. Very mild bilateral mastoiditis. - MRI Brain 01/11: No acute intracranial abnormality. - MRI Cervical Spine 01/11: Degenerative disc disease and spondylosis. Changes contribute to multilevel moderate to severe neural foraminal narrowing. - MRI Thoracic Spine 01/11: No acute abnormality. - c/w PT and OT - Neurology on consultation; outpatient follow up for nerve conduction studies Essential hypertension - BP well controlled - c/w Amlodipine DLP - c/w Rosuvastatin Asthma / Reactive airway disease - c/w fluticasone inhaler - c/w inhaled therapy as ordered Intertrigo - c/w Nystatin powder Sacral/coccyx ulcer/pressure injury, and right second toe ulcer - Was present upon admission - c/w dressing changes, turning and weight offloading for sacral pressure injury DVT prophylaxis - c/w Eliquis Disposition: - c/w PT and OT VS,Fishbone, I+O VS, Fishbone, I+O Laboratory Tests 01/17/20 05:29 Vital Signs Date Time Temp Pulse Resp B/P (MAP) Pulse Ox O2 Delivery O2 Flow Rate FiO2 01/17/20 09:33 77 148/64 01/17/20 06:00 98.0 18 98 Room Air I&O- Last 24 Hours up to 6 AM 01/17/20 06:00 Intake Total 1190 ml Output Total 0 ml Balance 1190 ml YUKO WONG MD Jan 17, 2020 10:10
[2020-01-17] MEDS ORDERED: MIRALAX *UNIT DOSE* 17GM PACKET PO PRN (10:15)
[2020-01-17] MEDS ORDERED: SENOKOT S TAB PO PRN (10:15)
[2020-01-17 14:00] VITALS: BP 136/64
[2020-01-17 22:00] VITALS: BP 129/64
[2020-01-17] MEDS: SODIUM CHLORIDE 0.9% INJ 10 ML SYR IV PRN (23:47)
[2020-01-18] MEDS: PIPERACILLIN/TAZOBACTAM SOD 3.375 GM in D5W MINI-BAG PLUS 50 ML IV SCH ×4 (04:30→21:29)
[2020-01-18] MEDS: SODIUM CHLORIDE 0.9% INJ 10 ML SYR IV SCH ×2 (05:57→18:22)
[2020-01-18 06:00] VITALS: BP 125/52
[2020-01-18 06:15] LABS: HEMATOCRIT 34.3 % (36.0-47.0); HEMOGLOBIN 10.6 g/dl (12.0-15.5); MEAN CORPUSCULAR HEMOGLOBIN 28.8 pg (27.0-33.0); MEAN CORPUSCULAR HGB CONC 30.9 g/dl (32.0-36.5); MEAN CORPUSCULAR VOLUME 93.2 fl (80.0-96.0); PLATELET COUNT, AUTOMATED 337 10^3/uL (150-450); RED BLOOD COUNT 3.68 10^6/uL (4.00-5.40); WHITE BLOOD COUNT 5.3 10^3/uL (4.0-10.0)
[2020-01-18 06:46] LABS: BLOOD UREA NITROGEN 11 MG/DL (7-18); CALCIUM LEVEL 8.7 MG/DL (8.8-10.2); CARBON DIOXIDE LEVEL 28 MEQ/L (21-32); CHLORIDE LEVEL 108 MEQ/L (98-107); CREATININE FOR GFR 0.49 MG/DL (0.55-1.30); GLOMERULAR FILTRATION RATE > 60.0 (>39); GLUCOSE, FASTING 98 MG/DL (70-100); POTASSIUM SERUM 3.9 MEQ/L (3.5-5.1); SODIUM LEVEL 141 MEQ/L (136-145)
[2020-01-18] MEDS: FLUTICASONE HFA 110 MCG 12 GM INHALER (FLOVENT) INH SCH ×2 (07:43→20:52)
[2020-01-18] MEDS: LACTOBACILLUS ACIDOPHILUS CAP (BACID) PO SCH ×2 (08:26→18:22)
[2020-01-18] MEDS: APIXABAN 5 MG TAB (ELIQUIS) PO SCH ×2 (08:26→21:29)
[2020-01-18] MEDS: amLODIPine 10 MG TAB PO SCH (08:27)
[2020-01-18] MEDS: ROSUVASTATIN 10 MG TAB (CRESTOR) PO SCH (08:27)
--- NOTE | 2020-01-18 11:31 | IPN ---
DATE: 01/15/2020 Nedra is doing well. She states that her voice is always stronger in the morning, and it gets weaker by the end of the day. She has no nausea or vomiting but does complain of diarrhea. She has had no fever or chills. Her drains were removed. MEDICATIONS: - probiotic one tablet by mouth twice a day with meals - Zosyn 3.375 mg every 6 hours LABORATORY DATA: White count 6.6, hemoglobin 10.5, hematocrit 33.5, platelets 343. Sodium 141, potassium 3.9, chloride 108, bicarbonate 29, BUN 9, creatinine 0.56, glucose 93, calcium 8.7, total protein 6.3, albumin 2.1, AST 10, ALT 12, alkaline phosphatase 57. PHYSICAL EXAMINATION: HEART: Normal S1, S2. No murmurs, rubs, or gallops. LUNGS: Clear. No wheezes, rhonchi, or rales. ABDOMEN: Soft, mildly tender in the left lower quadrant. No guarding. BACK: No costovertebral angle (CVA) tenderness. A small decubitus ulcer at the butt crack, measuring about 2.5 x 1 cm. EXTREMITIES: No clubbing, cyanosis, or edema. Right hemiparesis. NEUROLOGIC: Right hemiparesis with dysarthria. Cranial nerves intact. IMPRESSION: 1. Ruptured diverticulitis with intra-abdominal abscess, status post drainage procedure. Culture from the abscesses had Escherichia (E) coli, Streptococcus gallolyticus, and blood cultures were positive for Actinomyces. Patient on intravenous (IV) Zosyn, doing well. Drains were removed on January 12 by interventional radiology. Patient to continue with IV Zosyn for a total of 6 weeks. I will review her antibiotic susceptibilities from [place], and patient possibly could be switched to once a day IV Rocephin if going home to make it easier for home IV antibiotics along with oral Flagyl 2. Left leg deep venous thrombosis (DVT) with a history of recurrent DVT. Patient reports inferior vena cava (IVC) filter encroaches on her right renal artery and has asked me to call Dr. Weems to see her during her hospitalization, because she is worried about her kidneys. 3. Right-sided weakness with dysarthria. Is followed up by neurology. PLAN: Continue Zosyn until able to review her antibiotics susceptibilities regarding her E. coli and Actinomyces and possibly switch to IV Rocephin if susceptible E. coli with oral Flagyl to make it easier for home administration. Repeat complete blood count (CBC), erythrocyte sedimentation rate (ESR), C- reactive protein (CRP) next week. Monitor diarrhea on probiotic. MTDD
[2020-01-18 14:00] VITALS: BP 122/66
--- NOTE | 2020-01-18 15:33 | IPNPDOC ---
Text Note Date of Service The patient was seen on 01/18/20. 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 At that time she received a CT of the abdomen and pelvis which demonstrated thickening of the mid sigmoid colon with inflammatory changes suggesting diverticulitis. Also was noted 2 air containing fluid-filled masses measuring 2.3 x 1.8 x 2 cm in the abdomen and 4.4 x 4.7 x 3.9 cm in the right cul-de-sac region consistent with abscess. The patient was planned to be admitted however there was no Interventional Radiology coverage for IR drainage of the abscesses. Patient was subsequently transferred to [facility] for IR abscess drainage. Patient has received IR drainage of her abscess with anterior and posterior drains placed. She reportedly had grown Salmonella species from abscess cultures and was placed on Zosyn with plans to continue for 6 weeks. The patient had also been placed on TPN during her [facility] hospitalization however her diet has been advanced to low residual diet. During the patients hospitalization at [facility] there had been mention of a malpositioned IVC filter which was placed by Dr. Weems in June 2019 for DVT. Interventional Radiology at [facility] recommended that the patient follow-up with Dr. Weems for reposition as an outpatient Patient's hospital course was complicated with suspected stroke and she had received an MRI on 12/29 at [facility] was negative for stroke. Patient was seen and examined at the bedside. Patient reports no significant problems today. Denies any chest pain, shortness of breath, palpitations, nausea, vomiting, abdominal pain or diarrhea. Patient reports that she had a bowel movement yesterday. Objective: Vitals (See below) General: Sitting up in bed, does not appear to be in any distress and is comfortable, AAOx3 HEENT: NC, AT CVS: +S1S2 Lungs: Air entry is fair bilaterally without any evidence of rhonchi, crackles or wheezing Abdomen: Remains soft without any distention or tenderness Extremities: No edema appreciated of any lower extremity Neuro: No changes noted - RLE: 0-1/5, LLE: 4/5 Assessment and plan: s/p Colonic diverticulitis with diverticular abscess 2 - Patient has continued to remain hemodynamically stable and afebrile throughout the entire hospital stay - CT abdomen / pelvis 01/12: 1. Anterior and posterior lower abdominal and pelvic percutaneous and transgluteal drains in place as described. They have completely drain the fluid collections/abscesses noted on previous CT. Do not see residual fluid or air. Much improved inflammatory changes in the pelvic and pericolonic fat. I do not see any other significant or new finding compared to the previous study. - Drains were discontinued by IR on 01/12 - Dr. Alvarado (ID) on consultation; c/w Zosyn for 6 week course; PICC line in place - c/w PT and OT; acute rehabilitation was denied and patient will ultimately require subacute rehabilitation versus home with services - Will transition to ALC status s/p Constipation - Patient has had a large bowel movement over the last 2 days - c/w bowel regimen Left leg DVT in April 2019 (Hx of recurrent DVT without hx of cancer or hypercoagulable disorder) - Per records it appears that her IVC filter is encroaching upon the right renal vasculature. - Case was initially discussed by previous provider and Dr. Weems; she recommends scheduling outpatient followup after inpatient issues are resolved. 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 Approximately 2 weeks prior to her presentation at [facility] on 12/24 - Unable to confirm diagnosis until confirmed as an outpatient with nerve conduction studies - MRI 12/29 Completed at [facility]. 1. No evidence of acute intracranial pathology. 2. Mild underlying chronic microvascular ischemic changes of the white matter. 3. Mild central volume loss of brain parenchyma/atrophy. 4. Very mild bilateral mastoiditis. - MRI Brain 01/11: No acute intracranial abnormality. - MRI Cervical Spine 01/11: Degenerative disc disease and spondylosis. Changes contribute to multilevel moderate to severe neural foraminal narrowing. - MRI Thoracic Spine 01/11: No acute abnormality. - c/w PT and OT - Neurology on consultation; outpatient follow up for nerve conduction studies Essential hypertension - BP well controlled - c/w Amlodipine DLP - c/w Rosuvastatin Asthma / Reactive airway disease - c/w fluticasone inhaler - c/w inhaled therapy as ordered Intertrigo - c/w Nystatin powder Sacral/coccyx ulcer/pressure injury, and right second toe ulcer - Was present upon admission - c/w dressing changes, turning and weight offloading for sacral pressure injury DVT prophylaxis - c/w Eliquis Disposition: - c/w PT and OT - Transition to ALC status VS,Fishbone, I+O VS, Fishbone, I+O Laboratory Tests 01/18/20 05:56 Vital Signs Date Time Temp Pulse Resp B/P (MAP) Pulse Ox O2 Delivery O2 Flow Rate FiO2 01/18/20 14:00 96.7 98 20 122/66 (84) 97 Room Air I&O- Last 24 Hours up to 6 AM 01/18/20 06:00 Intake Total 1470 ml Output Total 0 ml Balance 1470 ml YUKO WONG MD Jan 18, 2020 15:33
[2020-01-18 22:00] VITALS: BP 144/60
[2020-01-19] MEDS: PIPERACILLIN/TAZOBACTAM SOD 3.375 GM in D5W MINI-BAG PLUS 50 ML IV SCH ×4 (04:16→21:38)
[2020-01-19] MEDS: SODIUM CHLORIDE 0.9% INJ 10 ML SYR IV SCH ×2 (05:45→18:16)
[2020-01-19 06:00] VITALS: BP 128/54
[2020-01-19] MEDS: FLUTICASONE HFA 110 MCG 12 GM INHALER (FLOVENT) INH SCH ×2 (07:32→20:46)
--- NOTE | 2020-01-19 08:20 | IPN ---
DATE: 01/18/2020 SUBJECTIVE: Nedra is doing well. She was working with OT and PT today and needed assistance of two people to get out of bed to the side of the bed. She has had no fever or chills, no nausea or vomiting, or diarrhea. She is very concerned about her IVC filter, malpositioned and encroaching on her renal artery. She asked me to talk to Dr. Weems about her IVC filter. PHYSICAL EXAMINATION: VITAL SIGNS: Temperature is 98.3, pulse is 80, respirations are 12, blood pressure is 125/52, O2 sat is 97% on room air. HEART: Normal S1 and S2. No murmurs, rubs or gallops. LUNGS: Clear. No wheezes, rales or rhonchi. ABDOMEN: Mildly tender in the left lower quadrant. EXTREMITIES: No edema. Right hemiparesis. NEUROLOGIC: Right hemiparesis, alert and oriented x3. LABORATORY DATA: White count 5.3, hemoglobin 10.6, hematocrit 34.3, platelets 337,000. ESR 70. Sodium 141, potassium is 3.9, chloride 108, bicarbonate 28, BUN 11, creatinine 0.49, glucose is 98, calcium is 8.7, CRP 0.43. IMPRESSION: 1. Colonic diverticulitis with diverticular abscesses x2, drains have been removed. Patient had E. coli, strep gallolyticus and Actinomyces on cultures, the Actinomyces was on blood culture. She is feeling much better with CRP improving. The patient is asymptomatic. Due to her clinical improvement, I would suggest continuing antibiotics instead for four weeks instead of six weeks IV and switching her to p.o. Augmentin after that. 2. Left leg DVT status post IVC filter, placed by Dr. Weems. The case has been discussed with Dr. Weems who told me to reassure the patient that the IVC filter is not causing any problem and it will be removed as an outpatient. 3. Right sided weakness with slurred speech, being worked up for ALS, no evidence of stroke on MRI. PLAN: Continue with IV Zosyn. I would suggest a total of four weeks from start day which was December 24 and then switch to Augmentin which would cover all pathogens that were isolated including Actinomyces, E. coli and streptococcus gallolyticus. AMBROCIO
[2020-01-19] MEDS: APIXABAN 5 MG TAB (ELIQUIS) PO SCH ×2 (09:13→21:37)
[2020-01-19] MEDS: LACTOBACILLUS ACIDOPHILUS CAP (BACID) PO SCH ×2 (09:13→18:16)
[2020-01-19] MEDS: ROSUVASTATIN 10 MG TAB (CRESTOR) PO SCH (09:14)
[2020-01-19] MEDS: amLODIPine 10 MG TAB PO SCH (09:14)
[2020-01-19 14:00] VITALS: BP 138/52
[2020-01-19 22:00] VITALS: BP 122/87
[2020-01-20] MEDS: PIPERACILLIN/TAZOBACTAM SOD 3.375 GM in D5W MINI-BAG PLUS 50 ML IV SCH ×4 (03:32→21:08)
[2020-01-20] MEDS: SODIUM CHLORIDE 0.9% INJ 10 ML SYR IV SCH ×2 (04:58→17:11)
[2020-01-20 06:00] VITALS: BP 110/80
[2020-01-20] MEDS: FLUTICASONE HFA 110 MCG 12 GM INHALER (FLOVENT) INH SCH ×2 (08:19→19:42)
--- NOTE | 2020-01-20 08:47 | IPN ---
DATE: 01/19/2020 SUBJECTIVE: Nedra seems to be doing well. She denies any complaints. She states her diarrhea is a little better. She has had no fever or chills. She has no abdominal pain. Her appetite is fair. She still is not working with physical therapy due to right hemiparesis. She is being considered for rehabilitation at the residential. She has been denied from acute rehab at [facility]. PHYSICAL EXAMINATION: VITAL SIGNS: Temperature is 97.2, pulse 84, respiratory rate is 18, blood pressure is 138/52. O2 sat is 96% on room air. HEART: Normal S1, S2, no murmurs, rubs or gallops. LUNGS: No rales, rhonchi or wheezes. ABDOMEN: Mild tenderness in the left lower quadrant. The area where she had a drain has minimal erythema. No purulence. Right buttock drain was also removed. There is an Optifoam dressing with minimal erythema at the incision site. She has a small sacral decubitus ulcer measuring 2 by 1 cm with mild erythema, no purulence. EXTREMITIES: No clubbing, cyanosis, or edema. Right hemiparesis. Right leg and right arm LABORATORY STUDIES: White count 5.3, hemoglobin 10.6, hematocrit 34.2, platelets 347. ESR 17. Sodium 141, potassium 3.9, chloride 103, bicarbonate 28, BUN 11, creatinine 0.49, glucose 98, calcium 8.7, CRP 0.43. IMPRESSION: Diverticulitis with two intraabdominal abscesses status post drainage procedures. She did very well. Drains were removed. The patient had been on IV Zosyn since December 24. Due to positive result cultures with actinomyces at [facility], they recommended 6 weeks of IV antibiotics but I do not see any need for that prolonged IV antibiotics. She probably could be switched to oral once she goes to rehabilitation to [facility] or home. I would suggest switching her to Augmentin whenever she is ready for transfer or discharge home. I would suggest continuing antibiotics for a total of 6 weeks with anticipated end of therapy February 08 for actinomyces bacteremia. PLAN: 1. Continue with IV Zosyn while she is at [facility], then switch her to the Augmentin 875 mg p.o. twice daily. 2. Recommend drinking kefir or using probiotics twice a day. [facility]
[2020-01-20] MEDS: APIXABAN 5 MG TAB (ELIQUIS) PO SCH ×2 (10:22→21:07)
[2020-01-20] MEDS: LACTOBACILLUS ACIDOPHILUS CAP (BACID) PO SCH ×2 (10:22→17:11)
[2020-01-20] MEDS: ROSUVASTATIN 10 MG TAB (CRESTOR) PO SCH (10:22)
[2020-01-20] MEDS: amLODIPine 10 MG TAB PO SCH (10:23)
[2020-01-20] MEDS: SODIUM CHLORIDE 0.9% INJ 10 ML SYR IV PRN (11:56)
[2020-01-20] MEDS ORDERED: NYSTATIN 500,000 U/5 ML SUSP UDC SS PRN (18:00)
[2020-01-20] MEDS: NYSTATIN 500,000 U/5 ML SUSP UDC SS SCH (23:10)
[2020-01-21] VITALS (7 sets, daily range): BP systolic 103–126; BP diastolic 56–84
[2020-01-21] MEDS: PIPERACILLIN/TAZOBACTAM SOD 3.375 GM in D5W MINI-BAG PLUS 50 ML IV SCH ×4 (04:20→21:01)
[2020-01-21] MEDS: SODIUM CHLORIDE 0.9% INJ 10 ML SYR IV SCH ×2 (05:45→17:30)
[2020-01-21] MEDS: NYSTATIN 500,000 U/5 ML SUSP UDC SS SCH ×4 (05:47→23:48)
[2020-01-21] MEDS ORDERED: ISOVUE-300 61% 50ML VIAL As Ordered ONE (07:00)
[2020-01-21] MEDS ORDERED: LIDOCAINE 1% MDV 20ML VIAL As Ordered ONE (07:00)
[2020-01-21] MEDS ORDERED: diphenhydrAMINE 50MG/ML VIAL (J1200) As Ordered ONE (07:46)
[2020-01-21] MEDS ORDERED: fentaNYL 100 MCG/2 ML INJECTION (J3010) As Ordered ONE (07:47)
[2020-01-21] MEDS ORDERED: MIDAZOLAM INJ 2MG/2ML VIAL (J2250 PER 1MG) As Ordered ONE (07:47)
[2020-01-21] MEDS ORDERED: PROMETHAZINE INJ 25 MG/ML VIAL (J2550) As Ordered ONE (07:47)
[2020-01-21] MEDS: LACTOBACILLUS ACIDOPHILUS CAP (BACID) PO SCH ×2 (08:00→17:30)
[2020-01-21] MEDS: FLUTICASONE HFA 110 MCG 12 GM INHALER (FLOVENT) INH SCH ×2 (08:00→20:15)
--- NOTE | 2020-01-21 08:16 | IRMSE ---
[facility] IR Moderate Sedation Eval. Date and Time Date: Jan 21, 2020 Time: 08:15 ASA Classification ASA Classification: III-Severe systemic dis. Mallampati Score: II NPO: Yes Obstructive Sleep Apnea: No Interval Plan: moderate sedation JANET VERNON MD Jan 21, 2020 08:15
[2020-01-21] MEDS: APIXABAN 5 MG TAB (ELIQUIS) PO SCH ×2 (10:51→21:01)
[2020-01-21] MEDS: amLODIPine 10 MG TAB PO SCH (10:51)
[2020-01-21] MEDS: ROSUVASTATIN 10 MG TAB (CRESTOR) PO SCH (10:51)
--- NOTE | 2020-01-21 11:11 | POST-OPPD ---
Postoperative Procedure Note Date Of Procedure: Jan 21, 2020 Time Of Procedure: 11:06 IR IVC Filter removal. Inferior vena cavogram Ultrasound of the right neck. Clinical Information:IVC filter in place. Patient can now be safely anticoagulated and filter is no longer needed. Physician: Dr. Weems. Procedure: The patient was advised of the benefits, risks, and alternatives of the procedure and informed consent was obtained. A time out was performed with verification of the patient's name, MRN, site of procedure, and type of procedure to be performed. The patient was positioned in the supine position on the angiographic table. The site was prepped and draped in the usual sterile fashion. Moderate sedation was performed by the physician including the presence of an independent trained RN who, assisted in monitoring the patient's level of consciousness and physiological status. Following the administration of fentanyl and Versed, the physician spent 60 minutes of continuous [id number] time with the patient. Preliminary ultrasound of the right neck was performed, demonstrating the right internal jugular vein to be normal in caliber and easily compressible. The right internal jugular vein was accessed using a microintroducer system. A 0.035 wire was placed into the peripheral inferior vena cava. An inferior venacavogram was then performed, demonstrating a normal caliber inferior vena cava without filling defects, occlusion or thrombus. IVC filter in appropriate position. A wire was then passed into the inferior vena cava and the filter retrieval sheath advanced over the wire.A snare device was advanced through the sheath and used to retrieve the filter under fluoroscopy guidance. The filter was removed in its entirety with the inner sheath. A follow-up venogram was performed through the outer sheath which demonstrates no extravasation from the IVC and complete removal of the filter. The sheath was then removed and hemostasis obtained with manual compression. The patient tolerated the procedure well and was returned to the PRU in stable condition. EBL: < 5 mL. Complications:None. Conclusions: 1. Normal cavogram without thrombus and appropriately positioned IVC filter. 2. Successful removal of IVC filter as there is no further contraindication to anti coagulation. Thank you for this referral JANET WEEMS MD Jan 21, 2020 11:11
[2020-01-21] MEDS: SODIUM CHLORIDE 0.9% INJ 10 ML SYR IV PRN (14:15)
[2020-01-22] MEDS: PIPERACILLIN/TAZOBACTAM SOD 3.375 GM in D5W MINI-BAG PLUS 50 ML IV SCH ×2 (04:09→10:29)
[2020-01-22] MEDS: NYSTATIN 500,000 U/5 ML SUSP UDC SS SCH ×4 (05:29→23:46)
[2020-01-22] MEDS: SODIUM CHLORIDE 0.9% INJ 10 ML SYR IV SCH ×2 (05:30→18:49)
[2020-01-22 06:00] VITALS: BP 119/53
[2020-01-22] MEDS: FLUTICASONE HFA 110 MCG 12 GM INHALER (FLOVENT) INH SCH ×2 (07:21→20:45)
[2020-01-22] MEDS: ROSUVASTATIN 10 MG TAB (CRESTOR) PO SCH (08:34)
[2020-01-22] MEDS: LACTOBACILLUS ACIDOPHILUS CAP (BACID) PO SCH ×2 (08:34→18:48)
[2020-01-22] MEDS: amLODIPine 10 MG TAB PO SCH (08:36)
[2020-01-22] MEDS: APIXABAN 5 MG TAB (ELIQUIS) PO SCH ×2 (08:38→20:13)
[2020-01-22] MEDS: SODIUM CHLORIDE 0.9% INJ 10 ML SYR IV PRN (12:58)
--- NOTE | 2020-01-22 15:18 | IPNPDOC ---
Date Seen The patient was seen on 01/22/20. Progress Note SUBJECTIVE: Patient was seen and examined this morning. Patient has an extensive medical history with recent colonic diverticulitis in which she developed 2 abscess. At the time she was transferred to [facility] where she had IR guided drainage of the abscess as well as drains placed. There was also note of a malpositioned IVC filter. The patient was transferred to [facility] and recommended to follow-up with IR for reposition of the IVC filter. Today the patient has no new complaints. She was seen by intervention radiology for which her IVC filter was removed. The patient has resumed anticoagulation. OBJECTIVE PHYSICAL EXAMINATION: VITAL SIGNS: Please see below. GENERAL: Awake, alert, and oriented. Appears in no acute distress. Lying in bed comfortably HEENT: Atraumatic, normocephalic. Eyes are nonicteric. Trachea is midline CARDIOVASCULAR: Normal S1, S2. Regular rate and rhythm. No clicks rubs or murmurs RESPIRATORY: Clear breath sounds bilaterally. No wheezes, rhonchi or rales ABDOMINAL: Soft, nondistended. Nontender. Normoactive bowel sounds throughout EXTREMITIES: No edema. Right dorsal foot ulceration currently bandaged NEUROLOGICAL: No focal neurological deficits PSYCHOLOGICAL: Mood and affect appear appropriate LABORATORY DATA, IMAGING STUDIES, MICROBIOLOGY: Please see below. DVT prophylaxis ordered?: Eliquis ASSESSMENT AND PLAN:. PROBLEMS: 1. S/P Colonic Diverticulitis w/ Diverticular abscess x2 -Abscess Drains discontinued on 01/12 -Patient is being followed by ID. Consultation appreciated -PICC line in place. Currently on IV Zosyn will continue while in hospital. Recommendations per ID to switch patient to Augmentin when she is discharged either to rehab or home. She would continue antibiotics for a total of 6 weeks with end of therapy date February 08 -C/w PT/OT 2. History of Left Leg DVT in Apr 2019 -Patient had IVC filter placed by Dr. Weems. At [facility] it was noted that the IVC filter was encroaching on the right renal vasculature. -Patient seen by Dr. Weems yesterday to have IVC filter removed -IVC filter was removed. Patient is on Eliquis 3.Right-sided weakness / Slurred speech; possibly 2/2 ALS -Patient has been evaluated for stroke. There is no evidence to suggest this -Imaging done both at [facility] and [facility] -Patient evaluated by Neurology with recomendations to follow-up outpatient 4. Essential HTN -BP well controlled. Continue current medications 5. DLP -C/w atorvastatin 6. Asthma/reactive airway disease -Continue with current medications 7. Intertrigo -Continue with Nystatin Powder 8. Sacral/Coccyx ulcer/pressure injury 2nd toe ulcer -Present on admission. -Continue current wound care and offloading 9. DVT Prophylaxis -Continue Eliquis DISPOSITION: Continue PT/OT. Likely subacute rehab placement. Patient is ALC status Attending Note: Patient seen and examined independently. Agree with resident's note. VS, I&O, 24H, Fishbone Vital Signs/I&O Vital Signs Date Time Temp Pulse Resp B/P (MAP) Pulse Ox O2 Delivery O2 Flow Rate FiO2 01/22/20 08:36 81 138/60 01/22/20 06:00 97.0 18 98 Room Air 01/21/20 09:25 3 I&O- Last 24 Hours up to 6 AM 01/22/20 06:00 Intake Total 500 ml Output Total 0 ml Balance 500 ml AMINTA MCALLISTER DO Jan 22, 2020 15:18 BERE POOLE MD Jan 24, 2020 06:57
[2020-01-22] MEDS: AUGMENTIN 875 MG TAB PO SCH (20:13)
[2020-01-22] MEDS: VANCOMYCIN ORAL SOL 250MG/5ML ORAL SYRINGE PO SCH (20:13)
[2020-01-23] MEDS: NYSTATIN 500,000 U/5 ML SUSP UDC SS SCH ×3 (05:32→17:41)
[2020-01-23] MEDS: SODIUM CHLORIDE 0.9% INJ 10 ML SYR IV SCH ×2 (05:32→17:42)
[2020-01-23 06:00] VITALS: BP 138/61
[2020-01-23] MEDS: FLUTICASONE HFA 110 MCG 12 GM INHALER (FLOVENT) INH SCH ×2 (07:31→19:34)
[2020-01-23] MEDS: VANCOMYCIN ORAL SOL 250MG/5ML ORAL SYRINGE PO SCH ×2 (09:01→20:03)
[2020-01-23] MEDS: LACTOBACILLUS ACIDOPHILUS CAP (BACID) PO SCH ×2 (09:01→17:41)
[2020-01-23] MEDS: AUGMENTIN 875 MG TAB PO SCH ×2 (09:01→20:03)
[2020-01-23] MEDS: ROSUVASTATIN 10 MG TAB (CRESTOR) PO SCH (09:02)
[2020-01-23] MEDS: amLODIPine 10 MG TAB PO SCH (09:02)
[2020-01-23] MEDS: APIXABAN 5 MG TAB (ELIQUIS) PO SCH ×2 (09:02→20:03)
[2020-01-24] MEDS: NYSTATIN 500,000 U/5 ML SUSP UDC SS SCH ×4 (00:38→17:28)
[2020-01-24 06:00] VITALS: BP 134/59
[2020-01-24] MEDS: SODIUM CHLORIDE 0.9% INJ 10 ML SYR IV SCH ×2 (06:10→17:29)
[2020-01-24] MEDS: FLUTICASONE HFA 110 MCG 12 GM INHALER (FLOVENT) INH SCH ×2 (07:23→20:29)
[2020-01-24] MEDS: VANCOMYCIN ORAL SOL 250MG/5ML ORAL SYRINGE PO SCH ×2 (09:04→20:21)
[2020-01-24] MEDS: AUGMENTIN 875 MG TAB PO SCH ×2 (09:05→20:20)
[2020-01-24] MEDS: ROSUVASTATIN 10 MG TAB (CRESTOR) PO SCH (09:05)
[2020-01-24] MEDS: APIXABAN 5 MG TAB (ELIQUIS) PO SCH ×2 (09:05→20:21)
[2020-01-24] MEDS: LACTOBACILLUS ACIDOPHILUS CAP (BACID) PO SCH ×2 (09:05→17:28)
[2020-01-24] MEDS: amLODIPine 10 MG TAB PO SCH (09:05)
--- NOTE | 2020-01-24 16:35 | IPN ---
DATE: 01/22/2020 SUBJECTIVE: Nedra is a little anxious this morning because she was told by [facility] that she could not go home and there was no custodial beds at [facility]. She did not want to go to a different hospital. She is being evaluated for [facility] for rehabilitation. She denies any nausea or vomiting. No abdominal pain, but she has been having soft stools per her nurse about three to four times a day that are not watery. She has no fever or chills. No night sweats. No nausea or vomiting. LABORATORY DATA: White count is 5.3, hemoglobin 10.6, hematocrit 34.3, platelets 337,000. Sodium 141, potassium 3.9, chloride 108, bicarb 28, BUN 11, creatinine 0.49, glucose 98, calcium 8.7, CRP 0.43. Review of cultures from [facility] from drainage, culture from the abdominal drain had +2 gram negative rods E. coli, which was sensitive to ampicillin with an ARMEN of 8 sensitive to cefazolin and sensitive to Unasyn. There was also Streptococcus gallolyticus species and Actinomyces turicensis. Blood culture done on 12/25 also had gram positive rods corynebacterium that was identified as well as an Actinomyces. The recommendation by ID in [place] was initially to treat her with six weeks of IV antibiotic, but the patient clinically is doing very well. Her drains were removed and she has no residual abdominal pain. Patient had been on antibiotics with IV Zosyn since 12/24 for a total of four weeks. IMPRESSION: 1. Diverticulitis with intraabdominal abscesses with polymicrobial john including Actinomyces, Streptococcus gallolyticus Escherichia coli all sensitive to Augmentin. Patient has been treated with four weeks of Zosyn and will be treated with two more weeks of p.o. Augmentin. 2. Change in bowel movements. The patient does not have clinically have Clostridium difficile colitis. She does not have a fever, white count elevated, CRP, or abdominal pain. It is probably antibiotic-associated diarrhea, but she is at high risk of having C. difficile because of prolonged systemic antibiotic and elderly. The patient will be placed on primary prevention with p.o. vancomycin at the dose of 125 mg p.o. b.i.d. 3. Right-sided hemiparesis being worked up for amyotrophic lateral sclerosis (ALS). The patient needs rehabilitation. PLAN: Discontinue IV Zosyn. Discontinue PICC line. Switch to p.o. Augmentin 875 mg p.o. b.i.d. To start primary prevention with vancomycin 125 mg p.o. b.i.d. Patient needs two more weeks of oral antibiotics and continue vancomycin five days after Augmentin is discontinued. Encouraged the patient to eat yogurt and drink kefir. She is on probiotics and is not on any PPIs. MTDD
[2020-01-25] MEDS: NYSTATIN 500,000 U/5 ML SUSP UDC SS SCH ×2 (05:24)
[2020-01-25] MEDS: SODIUM CHLORIDE 0.9% INJ 10 ML SYR IV SCH ×2 (05:25→17:04)
[2020-01-25 06:00] VITALS: BP 143/80
[2020-01-25] MEDS: APIXABAN 5 MG TAB (ELIQUIS) PO SCH ×2 (08:55→20:22)
[2020-01-25] MEDS: AUGMENTIN 875 MG TAB PO SCH (08:55)
[2020-01-25] MEDS: LACTOBACILLUS ACIDOPHILUS CAP (BACID) PO SCH ×2 (08:55→17:07)
[2020-01-25] MEDS: amLODIPine 10 MG TAB PO SCH (08:56)
[2020-01-25] MEDS: SODIUM CHLORIDE 0.9% INJ 10 ML SYR IV PRN (08:56)
[2020-01-25] MEDS: ROSUVASTATIN 10 MG TAB (CRESTOR) PO SCH (08:56)
[2020-01-25 09:04] LABS: BASO # 0.1 10^3/uL (0.0-0.2); BASO % 1.2 % (0.0-1.0); EOS # 0.2 10^3/uL (0.0-0.5); EOS % 3.3 % (0.0-3.0); HEMATOCRIT 38.6 % (36.0-47.0); HEMOGLOBIN 11.8 g/dl (12.0-15.5); LYMPH # 1.6 10^3/uL (1.5-5.0); LYMPH % 25.9 % (24.0-44.0); MEAN CORPUSCULAR HEMOGLOBIN 28.6 pg (27.0-33.0); MEAN CORPUSCULAR HGB CONC 30.6 g/dl (32.0-36.5); MEAN CORPUSCULAR VOLUME 93.7 fl (80.0-96.0); MONO # 0.5 10^3/uL (0.0-0.8); MONO % 8.4 % (0.0-5.0); NEUTROPHILS # 3.7 10^3/uL (1.5-8.5); PLATELET COUNT, AUTOMATED 347 10^3/uL (150-450); RED BLOOD COUNT 4.12 10^6/uL (4.00-5.40)
[2020-01-25] MEDS: FLUTICASONE HFA 110 MCG 12 GM INHALER (FLOVENT) INH SCH ×2 (09:17→19:35)
[2020-01-25 09:29] LABS: BLOOD UREA NITROGEN 8 MG/DL (7-18); CALCIUM LEVEL 8.9 MG/DL (8.8-10.2); CARBON DIOXIDE LEVEL 29 MEQ/L (21-32); CHLORIDE LEVEL 106 MEQ/L (98-107); CREATININE FOR GFR 0.52 MG/DL (0.55-1.30); GLOMERULAR FILTRATION RATE > 60.0 (>39); GLUCOSE, FASTING 87 MG/DL (70-100); POTASSIUM SERUM 4.2 MEQ/L (3.5-5.1); SODIUM LEVEL 139 MEQ/L (136-145)
[2020-01-25 09:37] LABS: ERYTHROCYTE SEDIMENTATION RATE 52 mm/hr (0-30)
[2020-01-25] MEDS: VANCOMYCIN ORAL SOL 250MG/5ML ORAL SYRINGE PO SCH (10:38)
[2020-01-25] MEDS ORDERED: BARIUM SULFATE 700 MG TABLET (E-Z-DISK) As Ordered ONE (12:48)
[2020-01-25] MEDS ORDERED: VARIBAR NECTAR 40% w/v 240ML SUSP BTL As Ordered ONE (12:48)
[2020-01-25] MEDS ORDERED: E-Z-PAQUE 96% w/w SUSP 176GM BTL As Ordered ONE (12:48)
[2020-01-25] MEDS ORDERED: VARIBAR PUDDING 40% w/v 230ML TUBE As Ordered ONE (12:48)
--- NOTE | 2020-01-25 18:29 | REP ---
INDICATION: difficulty swallowing, coughing and choking during swallowin. COMPARISON: None. TECHNIQUE: The procedure was performed by SKYLER Vasquez, under the direct supervision of Dr. Cordero. The procedure was performed with Shannan Lopez from speech pathology present. 5 ml aliquots of thin, pudding, mixed fruit, soft food, and pill consistency barium was administered. FINDINGS: No aspiration or penetration was visualized throughout the exam. The detailed report of this examination will be provided by speech pathology. . IMPRESSION: No aspiration or penetration was visualized. A complete detailed report will be provided by speech pathology. 1.3 minutes of fluoroscopy time was utilized for this procedure. Some fluoroscopic images are performed with last image hold technology. These images require no additional radiation <Electronically signed by Tammie Wing > 01/25/20 [id number] <Electronically signed by James Cordero > 01/25/20 [id number]
[2020-01-25] MEDS ORDERED: CIPRODEX OTIC SUSP 7.5ML AS SCH (21:00)
[2020-01-26 06:00] VITALS: BP 142/63
[2020-01-26] MEDS: FLUTICASONE HFA 110 MCG 12 GM INHALER (FLOVENT) INH SCH ×2 (07:03→19:24)
[2020-01-26] MEDS: APIXABAN 5 MG TAB (ELIQUIS) PO SCH ×2 (09:54→21:05)
[2020-01-26] MEDS: ROSUVASTATIN 10 MG TAB (CRESTOR) PO SCH (09:54)
[2020-01-26] MEDS: LACTOBACILLUS ACIDOPHILUS CAP (BACID) PO SCH ×2 (09:54→18:10)
[2020-01-26] MEDS: amLODIPine 10 MG TAB PO SCH (09:55)
--- NOTE | 2020-01-26 12:10 | IPN ---
DATE: 01/25/2020 SUBJECTIVE: Nedra seems to be doing well today. She is in good spirits. She states her diarrhea has improved. She still has significant right lower extremity weakness. She denies any nausea or vomiting. Her appetite is good. PHYSICAL EXAMINATION: Vital signs: Temperature 98.3, pulse 85, respirations 18, blood pressure 143/80, O2 saturation 96% on room air. Heart: Normal S1, S2. No murmurs, rubs or gallops. Lungs are clear. No wheezes, rales or rhonchi. Abdomen is soft, nontender, nondistended, normal bowel sounds. Extremities: No edema. Right upper and lower extremity weakness. There is no hip flexion. Weak abduction of the right upper extremity. IMPRESSION: 1. Colonic diverticulitis with diverticular abscess status post drainage procedure, currently CBC and CRP normal. I would recommend discontinuing oral Augmentin. Followup CT abdomen showed complete resolution of the abscess. 2. History of left leg DVT. The patient's IVC filter has been removed and she remains on Eliquis. 3. 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 The patient is being evaluated for rehab. PLAN: Discontinue Augmentin. Continue to monitor clinically for recurrent abdominal pain or diarrhea MTDD
[2020-01-27 06:00] VITALS: BP 126/73
[2020-01-27] MEDS: FLUTICASONE HFA 110 MCG 12 GM INHALER (FLOVENT) INH SCH ×2 (07:39→19:24)
[2020-01-27] MEDS: amLODIPine 10 MG TAB PO SCH (09:20)
[2020-01-27] MEDS: LACTOBACILLUS ACIDOPHILUS CAP (BACID) PO SCH ×2 (09:20→18:24)
[2020-01-27] MEDS: APIXABAN 5 MG TAB (ELIQUIS) PO SCH ×2 (09:20→20:25)
[2020-01-27] MEDS: ROSUVASTATIN 10 MG TAB (CRESTOR) PO SCH (09:20)
[2020-01-28 06:00] VITALS: BP 108/50
[2020-01-28] MEDS: FLUTICASONE HFA 110 MCG 12 GM INHALER (FLOVENT) INH SCH (07:30)
[2020-01-28 09:12] VITALS: BP 127/62
[2020-01-28] MEDS: APIXABAN 5 MG TAB (ELIQUIS) PO SCH (09:12)
[2020-01-28] MEDS: LACTOBACILLUS ACIDOPHILUS CAP (BACID) PO SCH (09:12)
[2020-01-28] MEDS: ROSUVASTATIN 10 MG TAB (CRESTOR) PO SCH (09:12)
[2020-01-28] MEDS: amLODIPine 10 MG TAB PO SCH (09:12)
--- NOTE | 2020-01-28 11:04 | DS.PDOC ---
Discharge Summary General Date of Admission Jan 09, 2020 at 18:18 Date of Discharge 01/28/20 Discharge Summary DISCHARGE DIAGNOSES: Colonic diverticulitis with diverticular abscess status post drainage procedure History of left leg DVT. IVC filter removed on . 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 HTN Hyperlipidemia. Right and left common femoral veins extensive DVT 04/2019 Status post IVC filter 06/2019. History of GI bleed. Tobacco abuse. Chronic right second toe ulcer for which she had an MRI of her foot which showed some narrow edema and cellulitis April of 2019. Pressure decubitus ulcer of the sacrum. Diverticulosis DISCHARGE MEDICATIONS: SEE BELOW DISCHARGE INSTRUCTIONS: PCP 1 WK FU NEUROLOGY 2-4WKS FU- outpatient EMG nerve conduction study of bilateral upper and lower extremities. riluzole 50 mg by mouth twice a day fu lft's CONSULTANTS: DR ALTAMIRANO-INFECTIOUS DISEASE DR VERNON-INTERVENTIONAL RADIOLOGY DR MARS-NEUROLOGIST PROCEDURES: Date Of Procedure: Jan 21, 2020 Time Of Procedure: 11:06 IR IVC Filter removal. Inferior vena cavogram Ultrasound of the right neck. Clinical Information:IVC filter in place. Patient can now be safely anticoagulated and filter is no longer needed. Physician: Dr. eVrnon. HOSPITAL COURSE: 74-year-old female with pmh significant for diverticulitis complicated by abscesses s/p transfer to [facility] for two drains, sent home on IV Zosyn. Cultures grew Salmonella, and pt was transferred back to [facility] for continued management. On arrival, she was found to have a malpositioned IVC filter which was repositioned and oral AC was resumed. Since she had dysarthria and UE/LE weakness, she was evaluated for motor neuron disease by Dr. Mars who suggested a trial of riluzole, and outpt EMG. She has been kept in ALC status until [facility] had a bed. She is to complete a full 6weeks of zosyn. DISCHARGE LABORATORY DATA: SEE BELOW MICROBIOLOGY: SEE BELOW IMAGING STUDIES: CT pelvis: Sacrum, SI joints pelvis and hips with some degenerative changes but no destructive lesion fracture or other acute finding in the lower abdomen to the right of midline transabdominal drain catheter which has cleared a fluid collection seen on the previous CT no residual fluid or mass in this region. In the right true pelvis via a transgluteal catheter the abscess collection is also completely drained. Catheter appears to abut the posterior margin of the uterine fundus. The uterus is anteverted and tilted towards the right. A a left-sided uterine fibroid or left ovary in the parametrial region with some low-density follicles within it noted and unchanged. No pelvic free fluid. No free air. The small bowel loops in the pelvis were unremarkable. There is diverticulosis scattered in the sigmoid and distal left colon. No acute inflammatory changes. The pericolonic inflammatory changes in pelvis and perirectal region are much improved. The bladder is well distended with normal wall thickness and no stone or mass. No distal ureteral dilatation or stone. No ventral hernia. IMPRESSION: 1. Anterior and posterior lower abdominal and pelvic percutaneous and transgluteal drains in place as described. They have completely drain the fluid collections/abscesses noted on previous CT. Do not see residual fluid or air. Much improved inflammatory changes in the pelvic and pericolonic fat. I do not see any other significant or new finding compared to the previous study. <Electronically signed by Andrea Sanford > 01/13/20 1252 TIME SPENT ON DISCHARGE: 30 MIN Vital Signs/I&Os Vital Signs Date Time Temp Pulse Resp B/P (MAP) Pulse Ox O2 Delivery O2 Flow Rate FiO2 01/28/20 09:12 84 127/62 01/28/20 06:00 98.0 48 92 Room Air I&O- Last 24 Hours up to 6 AM 01/28/20 06:00 Intake Total 1080 ml Output Total 0 ml Balance 1080 ml Laboratory Data Labs 24H Laboratory Tests 2 01/27/20 14:53: Coronavirus (COVID-19)(PCR) NEGATIVE Discharge Medications Scheduled Amlodipine Besylate (Amlodipine Besylate) 10 Mg Tablet, 10 MG PO DAILY, (Reported) Apixaban (Eliquis) 5 Mg Tablet, 5 MG PO BID, (Reported) Fluticasone Propionate (Flovent Hfa) 110 Mcg/Act Aer.w.adap, 2 PUFF INH BID, (Reported) Rosuvastatin Calcium (Rosuvastatin Calcium) 10 Mg Tablet, 10 MG PO DAILY, (Reported) Allergies Coded Allergies: No Known Allergies (Unverified , 04/21/19) JEAN MARIE MELGOZA MD Jan 28, 2020 10:47
== END 2020-01-28 14:20 | disposition home or self-care (01) | DRG 392 ==
LOC: M PCU 18:18 → M MSPAV 01-14 12:02
PROVIDERS: ADMIT Internal Medicine; ATTEND General Practice
PROC: 05PY3DZ Removal of Intraluminal Device from Upper Vein, Percutaneous Approach (ICD-10-PCS; principal; 2020-01-21 08:30)
DX: K57.20 Diverticulitis of large intestine with perforation and abscess without bleeding (principal); T82.525A Displacement of umbrella device, initial encounter; G12.21 Amyotrophic lateral sclerosis; I10 Essential (primary) hypertension; J45.909 Unspecified asthma, uncomplicated; L89.152 Pressure ulcer of sacral region, stage 2; L97.519 Non-pressure chronic ulcer of other part of right foot with unspecified severity; K59.00 Constipation, unspecified; Z79.01 Long term (current) use of anticoagulants; E78.5 Hyperlipidemia, unspecified; Z86.718 Personal history of other venous thrombosis and embolism; F17.200 Nicotine dependence, unspecified, uncomplicated; L30.4 Erythema intertrigo; Y83.8 Other surgical procedures as the cause of abnormal reaction of the patient, or of later complication, without mention of misadventure at the time of the procedure

== ENCOUNTER 2020-04-13 15:59 | Inpatient (IN) | payer MEDICARE, MEDICAID ==
[~2020-04-13] VITALS: Ht 157.5 cm; Wt 61.5 kg
[~2020-04-13 15:59] MED LIST changes: +ROSU10TA6 PO
[2020-04-13] MEDS ORDERED: ASPIRIN 81 MG CHEW TABLET PO ONE (16:15)
[2020-04-13] MEDS: COMBIVENT RESPIMAT 100-20MCG INHALER 4GM INH SCH ×3 (16:24→17:03)
--- OUTSIDE RECORDS SUMMARY | 2020-04-13 16:31 | CCD | Summary of Care ---
Author Author [facility] Organization [facility] Address Unknown Phone Unavailable Care Team Providers Care Jack Winder Name Role Phone Yaquelin Diaz MD PCP Reason for Referral * Consultation (Routine) Referred By Contact Referred To Contact Status Reason Specialty Diagnoses / Procedures Alysa Guo NP [address] [facility] [address] [place] [address] Email: [email or web address] Carolina Ariza MD [address] [place] [address] Authorized Specialty Services Neurology Diagnoses Required Weakness Scheduling Instructions Pt was seen by neurology as inpatient at [facility] and recommended further follow up and testing. Pt is in rehab/SNF and did not have follow up yet as we can see. If pt was seen there , can last note and testing results be faxed here, please? Reason for Visit * Reason Comments New Patient Colonic diverticular absces s Encounter Details Care Team Description Date Type Department Nicho Cotton MD [address] [facility] [address] [place] [address] Colonic diverticular abscess (Primary Dx ); Weakness; Essential hypertension; Deep vein thrombosis (DVT) of distal vein of lower extremity, unspecified chronicity, unspecified laterality; Partial SBO (small bowel obstruction); Skin ulcer of multiple sites of buttock, with unspecified severity; Weakness of right side of body; Speech disturbance, unspecified type; Neurological dysfunction 03/02/2020 Office Visit [facility] [address] [facility] [address] [place] [address] Allergies No Known Allergiesdocumented as of this encounter (statuses as of 03/16/2020) Medications End Date Status Medication Sig Dispensed Refills Start Date Active rosuvastatin (CRESTOR) 10 Take 10 mg by 0 MG tablet mouth daily Active Eliquis 5 MG Oral Tablet Take 5 mg by 0 mouth Two Times Daily Active Fluticasone Propionate Inhale 2 0 HFA 110 MCG/ACT puffs into Inhalation Aerosol the lungs Two (FLOVENT HFA) Times Daily 01/08/2021 Active Pantoprazole Sodium 40 MG Take 1 tablet 30 tablet 11 Oral Tablet Delayed by mouth 0 Release (PROTONIX) daily Additional Information Patient not taking. Reported on 03/02/2020 1:56 PM 01/07/2021 Active Albuterol Sulfate HFA 108 Inhale 2 1 Inhaler 11 (90 Base) MCG/ACT puffs into 0 Inhalation Aerosol the lungs Solution (PROVENTIL HFA) every 6 (six) hours as needed for Wheezing Additional Information Patient not taking. Reported on 03/02/2020 1:56 PM Active Senna 8.6 MG Oral Tablet Take 2 120 tablet 0 1 tablets by 0 mouth nightly Additional Information Patient not taking. Reported on 03/02/2020 1:56 PM Active Continue current TPN See AVS for 1 Package 0 01/08 formula details 0 Additional Information Patient not taking. Reported on 03/02/2020 1:56 PM 06/26/2020 Active Piperacillin-Tazobactam Inject 50 mLs 50 mL 0 in Dex 3-0.375 GM/50ML into the vein 0 Intravenous Solution every 8 (ZOSYN) (eight) hours Additional Information Patient not taking. Reported on 03/02/2020 1:56 PM Active amLODIPine Besylate 10 MG AmLODIPine 0 04/11 Oral Tablet (NORVASC) Besylate 10 0 MG Active Bisacodyl [address] 10 mg 0 Suppository (DULCOLAX) rectally daily Active Fleet Enema 7-19 GM/118ML Place 133 mLs 0 Rectal Enema rectally once Active Magnesium Hydroxide 400 Take by mouth 0 MG/5ML Oral Suspension daily as (MILK OF MAGNESIA) needed for Constipation Active Acetaminophen 325 MG Oral Take 650 mg 0 Tablet by mouth every 6 (six) hours as needed for Pain documented as of this encounter (statuses as of 03/16/2020) Active Problems Problem Noted Date Partial SBO (small bowel obstruction) 01/06/2020 Skin ulcer of multiple sites of buttock, with unspeci fied severity 01/06/2020 Overview: Likely combination incontinence dermati tis and pressure related At risk for impaired skin integrity 01/06/2020 Ulcer of toe of right foot 12/28/2019 Overview: Right second toe Colonic diverticular abscess 12/26/2019 Essential hypertension 12/26/2019 Deep vein thrombosis (DVT) of lower extremity 2019 Hyperlipidemia 12/26/2019 Glaucoma 12/26/2019 documented as of this encounter (statuses as of 03/16/2020) Social History Date Tobacco Use Types Packs/Day Years Used Former Smoker Smokeless Tobacco: Never Used Drinks/Week oz/Week Comments Alcohol Use Not Currently Social Isolation Answer Date Recorded In a typical week, how many times do you talk on More than three times a week 12/26/2019 the phone with family, friends, or neig hbors? How often do you get together with friends or More than th ree times a week 12/26/2019 relatives? How often do you attend judaism or orthodoxy Never 12/26/2019 services? Do you belong to any clubs or organizations such No 12/26/2019 as judaism groups, unions, fraternal or athletic groups, or school groups? How often do you attend meetings of the clubs or Never 12/26/2019 organizations you belong to? Are you now , , , , 12/26/2019 never or living with a partner? Physical Activity Answer Date Recorded On average, how many days per week do you engage 0 days 12/26/2019 in moderate to strenuous exercise (like walking fast, running, jogging, dancing, swimmi ng, biking, or other activities that cause a light or heavy sweat)? On average, how many minutes do you engage in 0 min 12/26/2019 exercise at this level? Stress Answer Date Recorded Do you feel stress - tense, restless, nervous, or Not at a ll 12/26/2019 anxious, or unable to sleep at night be cause your mind is troubled all the time - these d ays? Financial Resource Strain Answer Date Recorde d How hard is it for you to pay for the very basics Not very hard 12/26/2019 like food, housing, medical care, and h eating? Intimate Partner Violence Answer Date Recorde d Within the last year, have you been afraid of your No 12/26/2019 partner or ex-partner? Within the last year, have you been humiliated or No 12/26/2019 emotionally abused in other ways by you r partner or ex-partner? Within the last year, have you been kicked, hit, No 12/26/2019 slapped, or otherwise physically hurt b y your partner or ex-partner? Within the last year, have you been raped or No 12/26/2019 forced to have any kind of sexual activ ity by your partner or ex-partner? Food Insecurity Answer Date Recorded Within the past 12 months, you worried that your Never curtis e 12/26/2019 food would run out before you got money to buy more. Within the past 12 months, the food you bought Never true 12/26/2019 just didn't last and you didn't have mo jeny to get more. Transportation Needs Answer Date Recorded In the past 12 months, has lack of transportation No 12/26/2019 kept you from medical appointments or f rom getting medications? In the past 12 months, has lack of transportation No 12/26/2019 kept you from meetings, work, or gettin g things needed for daily living? Sex Assigned at Date Recorded Not on file Date Recorded COVID-19 Exposure Response 03/02/2020 1:21 PM EST In the last month, have you been in contact with No / Unsure someone who was confirmed or suspected to have Coronavirus / COVID-19? documented as of this encounter Last Filed Vital Signs Reading Time Taken Comments Vital Sign 121/60 03/02/2020 1:49 PM EST Blood Pressure 85 03/02/2020 1:49 PM EST Pulse 37 C (98.6 F) 03/02/2020 1:49 PM EST Temperature 18 03/02/2020 1:49 PM EST Respiratory Rate 93% 03/02/2020 1:49 PM EST Oxygen Saturation - - Inhaled Oxygen Concentration 63.5 kg (140 lb) 03/02/2020 1:49 PM EST Weight 157.5 cm (5' 2") 03/02/2020 1:49 PM EST Height 25.61 03/02/2020 1:49 PM EST Body Mass Index documented in this encounter Progress Notes * Alysa Guo NP - 03/02/2020 1:15 PM EST CLINIC H&P 03/02/2020 HPI: Nedra Bledsoe is a 74 y.o. female with PMH of COPD, HTN, GERD, DVT (on Eliquis and filter), who was seen in [facility] in December due to acute diverticul itis treated with IR drains and antibiotics. She was noted to have progressive w eakness from ambulating with walker at home to 2x assist , right side weakness a nd SOB, but neurological work up and MRI were negative for stroke. As she became stable, she was transferred back to [facility]. Her IR drains were eventually d/c after repeat CT showed complete resolution of the abscesses. She had further consult from neurology and was advised to follow up outpatient. She is here today from SNF for diverticulitis follow up. At present patient denies having fever, chills, nausea, vomiting, diarrhea, cons tipation, abdominal pain or rectal bleeding. She continue to have severe weaknes s on the right and poorly articulated speech. PMH: Active Ambulatory Problems Diagnosis Date Noted Colonic diverticular abscess 12/26/2019 Essential hypertension 12/26/2019 Deep vein thrombosis (DVT) of lower extremity 12/26/2019 Hyperlipidemia 12/26/2019 Glaucoma 12/26/2019 Ulcer of toe of right foot 12/28/2019 Partial SBO (small bowel obstruction) 01/06/2020 Skin ulcer of multiple sites of buttock, with unspecified severity 2019 At risk for impaired skin integrity 01/06/2020 Resolved Ambulatory Problems Diagnosis Date Noted No Resolved Ambulatory Problems Past Medical History: Diagnosis Date COPD (chronic obstructive pulmonary disease) DVT (deep venous thrombosis) Hypertension PSH: Past Surgical History: Procedure Laterality Date COLONOSCOPY FH: History reviewed. No pertinent family history. MEDICATIONS: Current Outpatient Medications: Acetaminophen 325 MG Oral Tablet, Take 650 mg by mouth every 6 (six) imani rs as needed for Pain, Disp: , Rfl: amLODIPine Besylate 10 MG Oral Tablet (NORVASC), AmLODIPine Besylate 10 MG, Disp: , Rfl: Bisacodyl 10 MG Rectal Suppository (DULCOLAX), Place 10 mg rectally johnny y, Disp: , Rfl: Eliquis 5 MG Oral Tablet, Take 5 mg by mouth Two Times Daily , Disp: , R fl: Fleet Enema 7-19 GM/118ML Rectal Enema, Place 133 mLs rectally once, Dis p: , Rfl: Fluticasone Propionate HFA 110 MCG/ACT Inhalation Aerosol (FLOVENT HFA), Inhale 2 puffs into the lungs Two Times Daily, Disp: , Rfl: Magnesium Hydroxide 400 MG/5ML Oral Suspension (MILK OF MAGNESIA), Take by mouth daily as needed for Constipation, Disp: , Rfl: rosuvastatin (CRESTOR) 10 MG tablet, Take 10 mg by mouth daily , Disp: , Rfl: Albuterol Sulfate HFA 108 (90 Base) MCG/ACT Inhalation Aerosol Solution (PROVENTIL HFA), Inhale 2 puffs into the lungs every 6 (six) hours as needed fo r Wheezing (Patient not taking: Reported on 03/02/2020), Disp: 1 Inhaler, Rfl: 1 1 Continue current TPN formula, See AVS for details (Patient not taking: R eported on 03/02/2020), Disp: 1 Package, Rfl: 0 Pantoprazole Sodium 40 MG Oral Tablet Delayed Release (PROTONIX), Take 1 tablet by mouth daily (Patient not taking: Reported on 03/02/2020), Disp: 30 ta blet, Rfl: 11 Piperacillin-Tazobactam in Dex 3-0.375 GM/50ML Intravenous Solution (ZOS YN), Inject 50 mLs into the vein every 8 (eight) hours (Patient not taking: Repo rted on 03/02/2020), Disp: 50 mL, Rfl: Senna 8.6 MG Oral Tablet, Take 2 tablets by mouth nightly (Patient not t aking: Reported on 03/02/2020), Disp: 120 tablet, Rfl: 0 ALLERGIES: No Known Allergies SOCIAL HISTORY: Social History Socioeconomic History Marital status: Spouse name: Not on file Number of children: Not on file Years of education: Not on file Highest education level: Not on file Occupational History Occupation: Retired Social Needs Financial resource strain: Not very hard Food insecurity Worry: Never true Inability: Never true Transportation needs Medical: No Non-medical: No Tobacco Use Smoking status: Former Smoker Smokeless tobacco: Never Used Substance and Sexual Activity Alcohol use: Not Currently Drug use: Never Sexual activity: Not Currently Lifestyle Physical activity Days per week: 0 days Minutes per session: 0 min Stress: Not at all Relationships Social connections Talks on phone: More than three times a week Gets together: More than three times a week Attends orthodoxy service: Never Active member of club or organization: No Attends meetings of clubs or organizations: Never Relationship status: Intimate partner violence Fear of current or ex partner: No Emotionally abused: No Physically abused: No Forced sexual activity: No Other Topics Concern Not on file Social History Narrative Not on file REVIEW OF SYSTEMS: Review of Systems Constitutional: Negative for appetite change, chills, diaphoresis, fever and une xpected weight change. HENT: Negative for congestion. Eyes: Negative for visual disturbance. Respiratory: Negative for cough and chest tightness. Cardiovascular: Negative for chest pain. Gastrointestinal: Negative for abdominal distention, abdominal pain, anal bleedi ng, blood in stool, constipation, diarrhea, nausea, rectal pain and vomiting. Endocrine: Negative for cold intolerance and heat intolerance. Genitourinary: Negative for difficulty urinating. Musculoskeletal: Weakness right >left, difficulty speaking Skin: Negative for wound. Allergic/Immunologic: Negative for immunocompromised state. Neurological: Positive for speech difficulty and weakness. Hematological: Does not bruise/bleed easily. Psychiatric/Behavioral: The patient is not nervous/anxious. PHYSICAL EXAM: Vitals: 03/02/20 1349 BP: 121/60 Pulse: 85 Resp: 18 Temp: 37 C (98.6 F) SpO2: 93% NEUROLOGICAL: alert, oriented, interacting appropriately , speech difficulty, ri ght side weakness >left HEENT: normocephalic, atraumatic CARDIAC: regular rate and rhythm RESPIRATORY: normal work of breathing ABDOMEN: soft, non-tender, non-distended, no rebound tenderness, guarding or her buck noted MUSCULOSKELETAL: non-edematous, right side weakness ASSESSMENT: 1. Colonic diverticular abscess 2. Weakness Referral to Neurology 3. Essential hypertension 4. Deep vein thrombosis (DVT) of distal vein of lower extremity, unspecified chr onicity, unspecified laterality 5. Partial SBO (small bowel obstruction) 6. Skin ulcer of multiple sites of buttock, with unspecified severity 7. Weakness of right side of body 8. Speech disturbance, unspecified type 9. Neurological dysfunction ALS causing weakness? Debilitation Diverticulitis with abscess (complicated) Nedra Bledsoe is a 74 y.o. female with PMH of COPD, HTN, GERD, DVT (on Eliquis and filter), who was seen in [facility] in December due to acute diverticu litis treated with IR drains and antibiotics. She was noted to have progressive weakness from ambulating with walker at home to 2x assist , right side weakness and SOB, but neurological work up and MRI were negative for stroke. As she becam e stable, she was transferred back to [facility]. Her IR drains we re eventually d/c after repeat CT showed complete resolution of the abscesses. S he had further consult from neurology and was advised to follow up outpatient. S he is here today from SNF for diverticulitis follow up. Given her hx of DVT, current use of Eliquis, chronic use of O2, sever weakness a nd total assist for ADL, she is a poor candidate for surgical intervention at th is point. Sever diverticulitis that she had would usually require colon resectio n of the affecting area, however, in this case would likely have more risk then benefit. Additionally, it does not look like she had post hospitalization follow up with Neurology and reasons for her progressive weakness are not clear. PLAN: Referral to Neurology for further work up. Follow up here in 2 months to r e-evaluate symptoms and discuss further plans. ATTESTATION: I saw and evaluated the patient. Discussed with the advanced practice provider and agree with the findings and plans as written, along with any supplemental di ctated and/or attending documentation in the patient record by myself. Patient returns for follow up regarding her complicated diverticulitis with absc ess. She reports that her pain has resolved. Her drains have been removed. He r drain sites have healed well without persistent discharge. She reports good b owel function with resolution of her inpatient obstructive symptoms. CT report from OSH reviewed. Colonoscopy report also in media tab from 2017. Her SBO and abscesses related to her diverticulitis have resolved. Discussed th at due to the complicated nature of her diverticular disease, would typically pr oceed with a colonoscopy followed by surgical resection; however, at this time t he patient is very debilitated and does not appear she would be able to tolerate a procedure at this time. She continues to have weakness that is also limiting her ability to mobilize. Encouraged her to follow up with her neurologist for further assistance with this. Continue mobilization/PT. Also discussed plan wi th the patient's daughter, Tammie, during the visit. They plan to have further family discussions as to whether surgery would ever be pursued regardless of her conditioning. Will discuss further at follow up. RTC 2 months. Nicho Cotton MD documented in this encounter Plan of Treatment Care Team Description Date Type Specialty Nicho Cotton MD [facility] [address] [address] 05/04/2020 Office Visit Surgery Order Schedule Name Type Priority Associated Diag noses Ordered: 03/02/2020 Referral to Neurology Outpatient Routine Weakness Referral Health Maintenance Due Date Last Done Comments Hepatitis C Screening (B. 1945 [id number]) MMR Vaccines (1 of 1 - 09/15/1946 Standard series) Varicella Vaccines (1 of 09/15/1946 2 - 2-dose childhood series) DTaP,Tdap,and Td Vaccines 1952 (1 - Tdap) Breast Cancer Screening 2 1996 years Colon Cancer Screening 10 1996 yrs Zoster Vaccines (1 of 2) 1996 Osteoporosis Screening 2 09/15/2011 yr Pneumococcal Vaccine: 65+ 09/15/2011 Years (1 of 1 - PPSV23) Influenza Vaccine 12/10/2019 04/22/2019, 02/21/2018, 02/20/2017 HIB Vaccines Aged Out No longer eligible based on patient's age to complete this topic Hepatitis A Vaccines Aged Out No longer eligibl e based on patient's age to complete this topic Hepatitis B Vaccines Aged Out No longer eligibl e based on patient's age to complete this topic IPV Vaccines Aged Out No longer eligible based on patient's age to complete this topic Pneumococcal Vaccine: Aged Out No longer eligib le based on patient's age to Pediatrics (0 to 5 Years) complete this topic and At-Risk Patients (6 to 64 Years) documented as of this encounter Implants Device Identifier Shelf Expiration Date Model / Serial / L ot Implanted Type Area Manufactur er 06/08/2021 [id number] / / Drn - Resolve - 12 Fr - [id number] Right: Buttocks ME RIT Implanted: Qty: 1 on 12/26/2019 by Eran Casas MD at [facility] 05/25/2022 [id number] / / Drn - Resolve - 10 Fr - [id number] Left: Abdomen ME RIT Implanted: Qty: 1 on 12/29/[address] [facility] documented as of this encounter Results Not on filedocumented in this encounter Visit Diagnoses Diagnosis Colonic diverticular abscess - Primary Weakness Other malaise and fatigue Essential hypertension Unspecified essential hypertension Deep vein thrombosis (DVT) of distal ve in of lower extremity, unspecified chronicity, unspecified laterality Partial SBO (small bowel obstruction) Unspecified intestinal obstruction Skin ulcer of multiple sites of buttock , with unspecified severity Weakness of right side of body Muscle weakness (generalized) Speech disturbance, unspecified type Neurological dysfunction Other symptoms involving nervous and mu sculoskeletal systems documented in this encounter
--- NOTE | 2020-04-13 16:32 | REP ---
INDICATION: DYSPNEA/COUGH COMPARISON: 12/25/2019 TECHNIQUE: Portable AP view of the chest FINDINGS: The mediastinum and cardiac silhouette are stable and within normal limits for portable technique. The lung vargas demonstrate chronic appearing changes including elevation to the right hemidiaphragm. Mild right basilar atelectasis cannot be excluded. No further consolidation, effusion, or pneumothorax identified. Skeletal structures are intact. IMPRESSION: Chronic stable changes. Cannot exclude subtle right basilar atelectasis. <Electronically signed by Prosper Strange > 04/13/20 [id number]
--- OUTSIDE RECORDS SUMMARY | 2020-04-13 16:34 | CCD ---
Author Author [facility] Organization [facility] Address Unknown Phone Unavailable Care Team Providers Care Manager Of Program Name Role Phone COLUMBA SWEENEY MD Unavailable Unavailable COLUMBA SWEENEY MD Unavailable Unavailable COLUMBA SWEENEY MD Unavailable Unavailable COLUMBA SWEENEY MD Unavailable Unavailable COLUMBA SWEENEY MD Unavailable Unavailable COLUMBA SWEENEY MD Unavailable Unavailable COLUMBA SWEENEY MD Unavailable Unavailable COLUMBA SWEENEY MD Unavailable Unavailable COLUMBA SWEENEY MD Unavailable Unavailable Manuel Yen MD Unavailable Unavailable Manuel Yen MD Unavailable Unavailable Manuel Yen MD Unavailable Unavailable Manuel Yen MD Unavailable Unavailable Manuel Yen MD Unavailable Unavailable Manuel Yen MD Unavailable Unavailable Manuel Yen MD Unavailable Unavailable Manuel Yen MD Unavailable Unavailable Manuel Yen MD Unavailable Unavailable Manuel Yen MD Unavailable Unavailable Manuel Yen MD Unavailable Unavailable Manuel Yen MD Unavailable Unavailable Manuel Yen MD Unavailable Unavailable Manuel Yen MD Unavailable Unavailable Manuel Yen MD Unavailable Unavailable Yovana, Mashaal MD Unavailable Unavailable Yovana, Mashaal MD Unavailable Unavailable Yovana, Mashaal MD Unavailable Unavailable Yovana, Mashaal MD Unavailable Unavailable Yovana, Mashaal MD Unavailable Unavailable Yovana, Mashaal MD Unavailable Unavailable Yovana, Mashaal MD Unavailable Unavailable Yovana, Mashaal MD Unavailable Unavailable Yovana, Mashaal MD Unavailable Unavailable Yovana, Mashaal MD Unavailable Unavailable Yovana, Mashaal MD Unavailable Unavailable Yovana, Mashaal MD Unavailable Unavailable Yovana, Mashaal MD Unavailable Unavailable Yovana, Mashaal MD Unavailable Unavailable Yovana, Mashaal MD Unavailable Unavailable Yovana, Mashaal MD Unavailable Unavailable Yovana, Mashaal MD Unavailable Unavailable Yovana, Mashaal MD Unavailable Unavailable Yovana, Mashaal MD Unavailable Unavailable Yovana, Mashaal MD Unavailable Unavailable Yovana, Mashaal MD Unavailable Unavailable Yovana, Mashaal MD Unavailable Unavailable Yovana, Mashaal MD Unavailable Unavailable Yovana, Mashaal MD Unavailable Unavailable Yovana, Mashaal MD Unavailable Unavailable Yovana, Mashaal MD Unavailable Unavailable Yovana, Mashaal MD Unavailable Unavailable Yovana, Mashaal MD Unavailable Unavailable Yovana, Mashaal MD Unavailable Unavailable Yovana, Mashaal MD Unavailable Unavailable Yovana, Mashaal MD Unavailable Unavailable Yovana, Mashaal MD Unavailable Unavailable Yovana, Mashaal MD Unavailable Unavailable Yovana, Mashaal MD Unavailable Unavailable Yovana, Mashaal MD Unavailable Unavailable Yovana, Mashaal MD Unavailable Unavailable Yovana, Mashaal MD Unavailable Unavailable Yovana, Mashaal MD Unavailable Unavailable Yovana, Mashaal MD Unavailable Unavailable Yovana, Mashaal MD Unavailable Unavailable Kalee BENSON MD Unavailable Unavailable Kalee BENSON MD Unavailable Unavailable Kalee BENSON MD Unavailable Unavailable Kalee BENSON MD Unavailable Unavailable Kalee BENSON MD Unavailable Unavailable Kalee BENSON MD Unavailable Unavailable Kalee BENSON MD Unavailable Unavailable Kalee BENSON MD Unavailable Unavailable Kalee BENSON MD Unavailable Unavailable Kalee BENSON MD Unavailable Unavailable Kalee BENSON MD Unavailable Unavailable Kalee BENSON MD Unavailable Unavailable Kalee BENSON MD Unavailable Unavailable Kalee BENSON MD Unavailable Unavailable Kalee BENSON MD Unavailable Unavailable Kalee BENSON MD Unavailable Unavailable Kalee BENSON MD Unavailable Unavailable VERONIQUE DELANEY Unavailable Unavailable Federica Macias MD Unavailable Unavailable Federica Macias MD Unavailable Unavailable Federica Macias MD Unavailable Unavailable Federica Macias MD Unavailable Unavailable Federica Macias MD Unavailable Unavailable Federica Macias MD Unavailable Unavailable Federica Macias MD Unavailable Unavailable Federica Macias MD Unavailable Unavailable Federica Macias MD Unavailable Unavailable Federica Macias MD Unavailable Unavailable Federica Macias MD Unavailable Unavailable Federica Macias MD Unavailable Unavailable Federica Macias MD Unavailable Unavailable Federica Macias MD Unavailable Unavailable Federica Macias MD Unavailable Unavailable Federica Macias MD Unavailable Unavailable Federica Macias MD Unavailable Unavailable Federica Macias MD Unavailable Unavailable Federica Macias MD Unavailable Unavailable Federica Macias MD Unavailable Unavailable Federica Macias MD Unavailable Unavailable Federica Macias MD Unavailable Unavailable Federica Macias MD Unavailable Unavailable Federica Macias MD Unavailable Unavailable Federica Macias MD Unavailable Unavailable Federica Macias MD Unavailable Unavailable Federica Macias MD Unavailable Unavailable Federica Macias MD Unavailable Unavailable Federica Macias MD Unavailable Unavailable Federica Macias MD Unavailable Unavailable Federica Macias MD Unavailable Unavailable Federica Macias MD Unavailable Unavailable Federica Macias MD Unavailable Unavailable Federica Macias MD Unavailable Unavailable Federica Macias MD Unavailable Unavailable Federica Macias MD Unavailable Unavailable Federica Macias MD Unavailable Unavailable Federica Macias MD Unavailable Unavailable Federica Macias MD Unavailable Unavailable YuryMaru Nicho Unavailable Unavailable Yury D Nicho Unavailable Unavailable Yury, D Nicho Unavailable Unavailable SHANEL WONG MD Unavailable Unavailable SHANEL WONG MD Unavailable Unavailable SHANEL WONG MD Unavailable Unavailable SHANEL WONG MD Unavailable Unavailable SHANEL WONG MD Unavailable Unavailable SHANEL WNOG MD Unavailable Unavailable SHANEL WONG MD Unavailable Unavailable SHANEL WONG MD Unavailable Unavailable SHANEL WONG MD Unavailable Unavailable SHANEL WONG MD Unavailable Unavailable SHANEL WONG MD Unavailable Unavailable WONG, SHANEL MD Unavailable Unavailable WONG, SHANEL MD Unavailable Unavailable WONG, SHANEL MD Unavailable Unavailable WONG, SHANEL MD Unavailable Unavailable WONG, SHANEL MD Unavailable Unavailable WONG, SHANEL MD Unavailable Unavailable WONG, SHANEL MD Unavailable Unavailable WONG, SHANEL MD Unavailable Unavailable WONG, SHANEL MD Unavailable Unavailable WONG, SHANEL MD Unavailable Unavailable WONG, SHANEL MD Unavailable Unavailable WONG, SHANEL MD Unavailable Unavailable WONG, SHANEL MD Unavailable Unavailable WONG, SHANEL MD Unavailable Unavailable WONG, SHANEL MD Unavailable Unavailable WONG, SHANEL MD Unavailable Unavailable WONG, SHANEL MD Unavailable Unavailable WONG, SHANEL MD Unavailable Unavailable WONG, SHANEL MD Unavailable Unavailable WONG, SHANEL MD Unavailable Unavailable WONG, SHANEL MD Unavailable Unavailable WONG, SHANEL MD Unavailable Unavailable WONG, SHANEL MD Unavailable Unavailable WONG, SHANEL MD Unavailable Unavailable WONG, SHANEL MD Unavailable Unavailable WONG, SHANEL MD Unavailable Unavailable WONG, SHANEL MD Unavailable Unavailable WONG, SHANEL MD Unavailable Unavailable WONG, SHANEL MD Unavailable Unavailable WONG, SHANEL MD Unavailable Unavailable WONG, SHANEL MD Unavailable Unavailable WONG, SHANEL MD Unavailable Unavailable WONG, SHANEL MD Unavailable Unavailable WONG, SHANEL MD Unavailable Unavailable WOGN, SHANEL MD Unavailable Unavailable WONG, SHANEL MD Unavailable Unavailable WONG, SHANEL MD Unavailable Unavailable WONG, SHANEL MD Unavailable Unavailable WONG, SHANEL MD Unavailable Unavailable WONG, SHANEL MD Unavailable Unavailable WONG, SHANEL MD Unavailable Unavailable WONG, SHANEL MD Unavailable Unavailable WONG, SHANEL MD Unavailable Unavailable WONG, SHANEL MD Unavailable Unavailable WONG, SHANEL MD Unavailable Unavailable WONG, SHANEL MD Unavailable Unavailable WONG, SHANEL MD Unavailable Unavailable WONG, SHANEL MD Unavailable Unavailable WONG, SHANEL MD Unavailable Unavailable WONG, SHANEL MD Unavailable Unavailable WONG, SHANEL MD Unavailable Unavailable WONG, SHANEL MD Unavailable Unavailable WONG, SHANEL MD Unavailable Unavailable WONG, SHANEL MD Unavailable Unavailable WONG, SHANEL MD Unavailable Unavailable WONG, SHANEL MD Unavailable Unavailable WONG, SHANEL MD Unavailable Unavailable WONG, SHANEL MD Unavailable Unavailable NO, PCP Unavailable Unavailable Re-disclosure Warning The records that you are about to access may contain information from federally-assisted alcohol or drug abuse programs. If such information is present, then the following federally mandated warning applies: This information has been disclosed to you from records protected by federal confidentiality rules (42 CFR part 2). The federal rules prohibit you from making any further disclosure of this information unless further disclosure is expressly permitted by the written consent of the person to whom it pertains or as otherwise permitted by 42 CFR part 2. A general authorization for the release of medical or other information is NOT sufficient for this purpose. The Federal rules restrict any use of the information to criminally investigate or prosecute any alcohol or drug abuse patient.The records that you are about to access may contain highly sensitive health information, the redisclosure of which is protected by Article 27-F of the [facility] Public Health law. If you continue you may have access to information: Regarding HIV / AIDS; Provided by facilities licensed or operated by the [facility] Office of Mental Health; or Provided by the [facility] Office for People With Developmental Disabilities. If such information is present, then the following [facility] mandated warning applies: This information has been disclosed to you from confidential records which are protected by state law. State law prohibits you from making any further disclosure of this information without the specific written consent of the person to whom it pertains, or as otherwise permitted by law. Any unauthorized further disclosure in violation of state law may result in a fine or residential sentence or both. A general authorization for the release of medical or other information is NOT sufficient authorization for further disc losure. Allergies and Adverse Reactions Type Description Substance Reaction Status Data Source(s ) Drug Class NO KNOWN ALLERGIES NO KNOWN ALLERGIES [facility] Family History Family Member Name Family Member Gender Family Member Status Date o f Status Description Data Source(s) Unknown Male Problem [facility] ([facility] () Encounters Encounter Providers Location Date Indications Data Source(s ) Outpatient Attender: Nicho Cotton 05/04/2020 12:00:00 AM [facility] Outpatient Attender: SHANEL WONG MDConsultant: PCP NO 03/14/2020 04:16:00 PM EST - 03/14/2020 04:26:00 PM EST [facility] Out[facility] Attender: SHANEL WONG MDConsultant: PCP NO 03/10/2020 12:30:00 PM EST - 03/10/2020 12:40:00 PM EST [facility] Outpatient Attender: SHANEL WONG MDConsultant: PCP NO 03/07/2020 02:17:00 PM EST - 03/07/2020 02:27:00 PM EST [facility] Attender: SHANEL WONG MDConsultant: PCP NO 03/03/2020 06:57:00 AM EST - 03/03/2020 07:07:[address] [facility] Outpatient Attender: Nicho Cotton [id number] 03/02 12:00:00 AM [facility] - 03/02/2020 02:59:41 PM EST Diverticulitis of large intestine with p erforation and abscess without bleeding [facility] Diverticulitis of large intestine with p erforation and abscess without bleeding Outpatient Attender: Nicho Cotton 02/24/2020 12:00:00 AM [facility] Outpatient Attender: Nicho Cotton 02/03/2020 12:00:00 AM [facility] Outpatient Attender: SHANEL WONG MDConsultant: PCP NO 02/02/2020 07:45:00 AM [facility] - 02/02/2020 07:55:[address] [facility] Outpatient Referrer: VERONIQUE DELANEY 01/11/2020 12:00:00 AM [facility] Outpatient Attender: VERONIQUE Chongferrer: VERONIQUE DELANEY 01/08/2020 12:00:00 AM [facility] Unknown [facility] [facility] [address] 12/30/2019 12:00:00 AM [place] [address] ([facility]) Outpatient Attender: COLUMBA SWEENEY MDReferrer: COLUMBA SWEENEY MD 12/29/2019 12:00:00 AM [facility] Outpatient Attender: COLUMBA SWEENEY MDReferrer: COLUMBA SWEENEY MD 12/29/2019 12:00:00 AM [facility] Inpatient Attender: VERONIQUE Sellers julio cesar: COLUMBA SWEENEY MDAttender: RAUL BENSON MDAdmitter: COLUMBA SWEENEY MDReferrer: COLUMBA SWEENEY MDConsultant: Marin Macias MDConsultant: Manuel Yen MD [id number] 12/26/2019 12 :00:00 AM EDT - 01/09/2020 06:12:00 PM EDT Salmonella sepsis [facility] Salmonella sepsis Patient discharged. Inpatient Attender: COLUMBA Gonzalez tter: RAUL BENSON MDReferrer: COLUMBA SWEENEY MD 12/26/2019 12:00:00 AM EDT diverticulitis with a bscess [facility] diverticulitis with abscess Outpatient Attender: COLUMBA SWEENEY MDReferrer: COLUMBA SWEENEY MD 12/26/2019 12:00:00 AM EDT [facility] Unknown [address] [facility] [address] 12/24/2019 12:00:00 AM EDT eCW1 ([facility]) [facility] [address] [place] [address], [place] [address] 10/08/2019 12:00:00 AM EDT [facility]CW1 [facility] [address] [place] [address], [place] [address] 07/02/2019 12:00:00 AM EDT eCW1 ([facility]) [facility] [address] [place] [address], [place] [address] 07/01/2019 12:00:00 AM EDT eCW1 ([facility] [address] [place] [address], [place] [address] 06/24/2019 12:00:00 AM EDT eCW1 ([facility]) Outpatient 06/18/2019 05:43:00 AM EDT [facility] Unknown [address] [facility] [address] 06/16/2019 12:00:00 AM EDT eCW1 ([facility]) [facility] [address] [place] [address], [place] [address] 06/16/2019 12:00:00 AM EDT eCW1 ([facility] [address] [place] [address], [place] [address] 05/28/2019 12:00:00 AM EDT eCW1 ([facility]) Outpatient 05/26/2019 11:31:00 AM EDT [facility] [address] [facility] [address] 05/20/2019 12:00:00 AM EDT eCW1 ([facility]) [facility] [address] [facility] [address] 05/19/2019 12:00:00 AM EDT eCW1 ([facility]) Outpatient 05/18/2019 12:57:00 PM EDT [facility] [address] [place] [address], [place] [address] 05/18/2019 12:00:00 AM EDT eCW1 ([facility]) [facility] [address] [facility] [address] 05/15/2019 12:00:00 AM EST [facility]CW1 ([facility]) [facility] [address] [facility] [address] 05/06/2019 12:00:00 AM EST eCW1 ([facility]) [facility] [address] [facility] [address] 05/06/2019 12:00:00 AM EST eCW1 ([facility]) [facility] [address] [facility] [address] 05/06/2019 12:00:00 AM EST eCW1 ([facility] [address] [place] [address], [place] [address] 05/06/2019 12:00:00 AM EST eCW1 ([facility]) Outpatient 05/04/2019 04:35:00 PM EST [facility] [address] [facility] [address] 05/04/2019 12:00:00 AM EST eCW1 ([facility]) [facility] [address] [facility] [address] 05/04/2019 12:00:00 AM EST eCW1 ([facility]) [facility] [address] [facility] [address] 04/28/2019 12:00:00 AM EST eCW1 ([facility]) [facility] [address] [place] [address], [place] [address] 04/21/2019 12:00:00 AM EST eCW1 ([facility]) [facility] [address] [place] [address] 04/21/2019 12:00:00 AM EST eCW1 ([facility]) [facility] [address] [place] [address], [place] [address] 04/07/2019 12:00:00 AM EST eCW1 ([facility]) [facility] [address] [place] [address] 04/07/2019 12:00:00 AM EST [facility] Outpatient 04/06/2019 02:37:00 PM EST [facility] [address] [address] 03/23/2019 12:00:00 AM EST [facility]CW1 [facility]) [address] [address] 03/19/2019 12:00:00 AM EST eCW1 ([facility]) [facility] [address] [place] [address], [place] [address] 03/18/2019 12:00:00 AM EST eCW1 ([facility]) [facility] [address] [place] [address], [place] [address] 03/18/2019 12:00:00 AM EST eCW1 ([facility]) [facility] [address] [place] [address], [place] [address] 03/09/2019 12:00:00 AM EST eCW1 ([facility]) [address] [address] 02/24/2019 12:00:00 AM EST eCW1 ([facility]) [facility] [place] [address] [facility] [address] 02/18/2019 12:00:00 AM EST eCW1 ([facility]) Immunizations Vaccine Date Status Description Data Source(s) influenza, recombinant, quadrIvalent,injectable, prese rvative free 05/06/2019 08:47:00 AM EST completed eCW1 ([facility]) influenza, recombinant, quadrIvalent,injectable, prese rvative free 05/06/2019 08:47:00 AM EST completed eCW1 ([facility]) Medications Medication Brand Name Start Date Product Form Dose Route Admi nistrative Instructions Pharmacy Instructions Status Indications Reaction Description Data Source(s) 5 mg 03/28/2020 12:00:00 AM EST tablet 60 TAKE ONE TABLET BY MOUTH TWICE A DAY FOR TREATMENT/ PREVENTION OF BLOOD CLOTS TAKE ONE TABLET BY MOUTH TWICE A DAY FOR TREATMENT/ PREVENTION OF BLOOD CLOTS SOLD: 03/29/2020 [facility] 110 mcg/actuation 03/28/2020 12:00:00 AM EST HFA aerosol inh aler 12 INHALE TWO PUFFS BY MOUTH TWICE A DAY FOR COPD INHALE TWO PUFFS BY MOUTH TWICE A DAY FOR COPD SOLD: 03/29/2020 [facility] 10 mg 03/28/2020 12:00:00 AM EST tablet 30 TAKE ONE TABLET BY MOUTH EVERY DAY FOR HYPERTENSION TAKE ONE TABLET BY MOUTH EVERY DAY FOR HYPERTENSION SO LD: 03/29/2020 [facility] Rosuvastatin calcium 10 MG Oral Tablet ROSUVASTATIN CALCIUM 03/28/2020 12:00:00 AM EST tablet 30 TAKE ONE TABLET BY MOUTH SOFIYA DAY FOR LIPID CONTROL TAKE ONE TABLET BY MOUTH EVERY DAY FOR LIPID CONTROL SOLD: 03/29/2020 [facility] pantoprazole 40 MG Delayed Release Oral Tablet Pantoprazole Sodium 40 MG Oral Tablet Delayed Release (PROTONIX) Pantoprazole Sodium 40 MG Oral Tablet De layed Release (PROTONIX) 01/10/2020 12:00:00 AM EDT 40 mg Oral active Take 1 tablet by mouth daily [facility] TPN adult 01/09/2020 07:00:00 PM EDT Intravenous active Intravenous, at 75 mL/hr, Daily at 1900, First dose (after last reorder) on Sat01/09/20 at 1900, For 1 day
Is patient on propofol (= 1 fat kcal/ml)? No
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
Do not crush or chew
[facility] Medication administered onsite Continue current TPN formula 01/09/2020 12:00:00 AM EDT active See AVS for details [facility] sennosides, INTERMEDIATE 8.6 MG Oral Tablet Senna 8.6 MG Oral T ablet Senna 8.6 MG Oral Tablet 01/09/2020 12:00:00 AM EDT 2 {tbl} Oral active Take 2 tablets by mouth nightly [facility] Albuterol Sulfate HFA 108 (90 Base) MCG/ ACT Inhalation Aerosol Solution (PROVENTIL HFA) 8641-3704-50 01/09/2020 12:00:00 AM EDT 2 {puff} Inha lation active Inhale 2 puffs i nto the lungs every 6 (six) hours as needed for Wheezing [facility] apixaban 5 MG Oral Tablet apixaban (ELIQUIS) tablet 5 mg apixaban (ELIQUIS) tablet 5 mg 01/08/2020 09:00:00 PM EDT 5 mg Oral active 5 mg, Oral, 2 Times Daily, First dose on Sat01/08/20 at 2100, For 30 days [facility] Medication administered onsite TPN adult 01/08/2020 07:00:00 PM EDT Intravenous completed Intravenous, at 75 mL/hr, Daily at 1900, First dose (after last reorder) on Sat01/08/20 at 1900, For 1 day
Is patient on propofol (= 1 fat kcal/ml)? No
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
Maximum daily dose of acetaminophen is 3,000 mg from all sources in 24 hours.
[facility] Medication administered onsite TPN adult 01/07/2020 07:00:00 PM EDT Intravenous completed Intravenous, at 75 mL/hr, Daily at 1900, First dose (after last reorder) on Katie 01/07/20 at 1900, For 1 day
Is patient on propofol (= 1 fat kcal/ml)? No
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
Shake the inhaler well before each spray.
[facility] Medication administered onsite TPN adult 01/06/2020 07:00:00 PM EDT Intravenous completed Intravenous, at 75 mL/hr, Daily at 1900, First dose (after last reorder) on Sat01/06/20 at 1900, For 1 day
Is patient on propofol (= 1 fat kcal/ml)? No
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
This specific formulation of piperacillin-tazobactam is compatible with Lactated Ringers.
[facility] Medication administered onsite Acetaminophen 325 MG Oral Tablet acetaminophen (TYLENO L) tablet 650 mg acetaminophen (TYLENOL) tablet 650 mg 01/05/2020 07:50:40 PM EDT 65 0 mg Oral completed 650 mg, Oral, E very 4 hours PRN, Mild Pain (Pain Scale Score 1-3), Headaches, Fever, Starting Sat01/05/20 at 1950, For 57 hours
Maximum daily dose of acetaminophen is 3,000 mg from all sources in 24 hours.
[facility] Medication administered onsite TPN adult 01/05/2020 07:00:00 PM EDT Intravenous completed Intravenous, at 75 mL/hr, Daily at 1900, First dose (after last reorder) on Sat01/05/20 at 1900, For 1 day
Is patient on propofol (= 1 fat kcal/ml)? No
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
Slower infusion rates (e.g. over 4 hours) are recommended in patients with renal impairment and/or less severe hypophosphatemia. Product contains 8.8 mEq of potassium.
[facility] Medication administered onsite TPN adult 01/04/2020 07:00:00 PM EDT Intravenous completed Intravenous, at 75 mL/hr, Daily at 1900, First dose on Sat01/04/20 at 1900, For 1 day
Is patient on propofol (= 1 fat kcal/ml)? No
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 [facility] Medication administered onsite Alanine 8.8 MG/ML / Arginine 4.89 MG/ML / Calcium Chloride 0.004 MEQ/ML / Dibasic potassium phosphate 2.61 MG/ML / Glucose 50 MG/ML / Glycine 4.38 MG/ML / Histidine 2.04 MG/ML / Isoleucine 2.55 MG/ML / Leucine 3.11 MG/ML / Lysine 2.47 MG/ML / Magnesium Ch amino acid 4.25 % with electrolytes in dextrose 5 % with calcium (CLINIMIX E 4.25/5) TPN infusion amino acid 4.25 % with electrolytes in dextrose 5 % with calcium (CLINIMIX E 4.25/5) TPN infusion 01/03/2020 04:30:00 PM EDT 75 mL/h Intravenous aborted 75 m L/hr, Intravenous, at 75 mL/hr, Continuous, Starting 01/03/20 at 1630, For 30 days
Use 0.2 micron filter and change tubing every 24 hours.
[facility] Medication administered onsite sodium chloride (preservative free) 0.9 % flush 10 mL 01/03/2020 02:58:41 PM EDT 10 mL Intravenous active [Ord er 1 Start] Name: sodium chloride (preservative free) 0.9 % flush 10 mL Signed Summary: 10 mL, Intravenous, PRN, Line Care, Starting [place]amount 01/03/20 at 1458, For 30 days
Verify blood return before use. Flush with 10 mL of Sodium Chloride 0.9 % before and after infusions or blood sampling followed-by 2 mL Heparin 10 units/mL to lock. Reference Policy C-34 Central Line Policy.
[Order 1 End] [Order 2 Start] Name: heparin lock flush 10 UNIT/ML injection 20 Units Signed Summary: 20 Units, Intravenous, PRN, Line Care, Starting [place]amount 01/03/20 at 1458, For 30 days
Verify blood return before use. Flush with 10 mL of Sodium Chloride 0.9 % before and after infusions or blood sampling followed-by 2 mL Heparin 10 units/mL to lock.Reference Policy C-34 Central Line Policy.
[Order 2 End] [Order 3 Start] Name: sodium chloride (preservative free) 0.9 % flush 10 mL Signed Summary: 10 mL, Intravenous, Every 12 hours, First dose on 01/03/20 at 1500, For 30 days
WHEN NOT IN USE - Verify blood return before use. Flush with 10 mL of Sodium Chloride 0.9 % and 2 mL Heparin 10 units/mL.Reference Policy C-34H Central Line Policy.
[Order 3 End] [Order 4 Start] Name: heparin lock flush 10 UNIT/ML injection 20 Units Signed Summary: 20 Units, Intravenous, Every 12 hours, First dose on [place]amount 01/03/20 at 1500, For 30 days
WHEN NOT IN USE - Verify blood return before use. Flush with 10 mL of Sodium Chloride 0.9 % and 2 mL Heparin 10 units/mL.Reference Policy C-34H Central Line Policy.
[Order 4 End] [facility] Medication administered onsite lidocaine (XYLOCAINE) 1 % injection 5 mL [id number] 01/03/2020 02:58:41 PM EDT 5 mL Subcutaneous active 5 m L, Subcutaneous, Once PRN, for PICC insertion, Starting [place]amount 01/03/20 at 1458, For 30 days [facility] Medication administered onsite iohexol (OMNIPAQUE) 300 MG/ML contrast injection 100 mL 1775 0401/03/2020 12:45:00 PM EDT 100 mL Given by IV completed 100 mL, Given by IV, 1 TIME IMAGING, [place]amount 01/03/20 at 1245, For 1 dose [facility] Medication administered onsite iohexol (OMNIPAQUE) 240 MG/ML contrast 20 mL [id number] 09:59:06 AM EDT 20 mL Oral completed 20 mL, Oral, O nce PRN, Contrast, Per Protocol, Starting [place]amount 01/03/20 at 0959, For [address] Scanner prior. automatic operator to CT.Dilute in 500 mL liquid x1 application dba to CT scan - per protocol. Use "Contrast dose chart" link for dosing guidelines.
[facility] Medication administered onsite iohexol (OMNIPAQUE) 240 MG/ML contrast 20 mL [id number] 09:59:05 AM EDT 20 mL Oral completed 20 mL, Oral, O nce PRN, Contrast, Per Protocol, Starting [place]amount 01/03/20 at 0959, For [address] to tell RN administration time of first dose. Dilute in 500 mL liquid x1 Now per protocol. Use "Contrast dose chart" link for dosing guidelines.
[facility] Medication administered onsite Piperacillin 3000 MG / tazobactam 375 MG Injection piperacillin-tazobactam (ZOSYN) IVPB 3.375 g (premix) piperacillin-tazobactam (ZOSYN) IVPB 3.3 75 g (premix) 01/03/2020 09:00:00 AM EDT 3.375 g Intravenous com pleted 3.375 g, Intravenous, Administer over 4 Hours, Every 8 hours, First dose (after last modification) on 01/03/20 at 0900, For 3 days
This specific formulation of piperacillin-tazobactam is compatible with Lactated Ringers.
[facility] Medication administered onsite potassium chloride (KLOR-CON) packet 40 mEq [id number] 01/03/2020 09:00:00 AM EDT 40 meq Oral aborted 40 mEq, Oral, 2 Times Daily, First dose on 01/03/20 at 0900, For 30 days
Mix in 4 ounces of water or juice
[facility] Medication administered onsite POLYETHYLENE GLYCOL 3350 142 MG/ML Oral Solution polyethylene glycol (MIRALAX) packet 17 g polyethylene glycol (MIRALAX) packet 17 g 01/03/2020 0 9:00:00 AM EDT 17 g Oral active 17 g, Or al, Daily Standard, First dose on 01/03/20 at 0900, For 30 days
Mix in 8 ounces of water, juice or milk. Avoid use in patients who require thickened liquids due to potential increased risk for aspiration.
[facility] Medication administered onsite sennosides, INTERMEDIATE 8.6 MG Oral Tablet senna tablet 2 tablet sen na tablet 2 tablet 01/03/2020 07:30:00 AM EDT 2 {tbl} Oral active 2 tablet, Oral, Nightly, First dose on 01/03/20 at 0730, For 30 days [facility] Medication administered onsite 0.9% NaCl (MAINTENANCE) infusion [id number] 01/03/2020 07:15:00 AM EDT Intravenous aborted at 75 mL/hr, Intravenous, Continuous, Starting 01/03/20 at 0715, For 30 days [facility] Medication administered onsite dextrose 5 %-0.9 % sodium chloride infusion [id number] 01/02/2020 01:00:00 PM EDT Intravenous aborted at 1 00 mL/hr, Intravenous, Continuous, Starting 01/02/20 at 1300, For 30 days [facility] Medication administered onsite Glucose 0.417 MG/MG Oral Gel glucose (GLUTOSE) 40 % or al gel 15 g glucose (GLUTOSE) 40 % oral gel 15 g 01/02/2020 12:52:24 PM EDT 15 g Oral active 15 g, Oral, PRN, Low blood s ugar, for gluose 55-69 mg/dl and able to take PO, Starting 01/02/20 at 1252, For 30 days [facility] Medication administered onsite Glucagon 1 MG Injection glucagon (human recombinant) ( GLUCAGEN) injection 1 mg glucagon (human recombinant) (GLUCAGEN) injection 1 mg 01/02/2020 12:52:24 PM EDT 1 mg Intramuscular active 1 mg, Intramuscular, PRN, for glucose <55 without IV access, Starting 01/02/20 at 1252, For 30 days [facility] Medication administered onsite dextrose 50 % IV solution 25 mL [id number] 01/02/2020 12:52:23 PM E DT 25 mL Intravenous active 25 mL, Intrav enous, PRN, Other, blood glucose <55, Starting 01/02/20 at 1252, For 30 days
Not for midline administration.
[facility] Medication administered onsite 1 ML Enoxaparin sodium 100 MG/ML Prefill ed Syringe enoxaparin sodium (LOVENOX) injection 100 mg enoxaparin sodium (LOVENOX) injection 100 mg 0 09:00:00 AM EDT 100 mg Subcutaneous aborted 100 mg, Subcutaneous, Daily Standard, First dose (after last modification) on Katie 12/31/19 at 0900, For 27 doses [facility] Medication administered onsite dextrose 5 % and 0.45 % NaCl with KCl 20 mEq infusion [id number] 12/31/2019 07:30:00 AM EDT Intravenous completed at 100 mL/hr, Intravenous, Continuous, Starting Katie 12/31/19 at 0730, For 24 hours [facility] Medication administered onsite albuterol (PROVENTIL HFA) inhaler 2 puff [id number] 12/30/2019 02:00:00 PM EDT 2 {puff} Inhalation aborted 2 pu ff, Inhalation, Every 6 hours, First dose (after last reorder) on Sat12/30/19 at 1400, For 4 days
Shake the inhaler well before each spray.
[facility] Medication administered onsite dextrose 5 % and 0.45 % NaCl with KCl 20 mEq infusion [id number] 12/30/2019 11:15:00 AM EDT Intravenous aborted at 100 mL/hr, Intravenous, Continuous, Starting Sat12/30/19 at 1115, For 24 hours [facility] Medication administered onsite Piperacillin 3000 MG / tazobactam 375 MG Injection piperacillin-tazobactam (ZOSYN) IVPB 3.375 g (premix) piperacillin-tazobactam (ZOSYN) IVPB 3.3 75 g (premix) 12/30/2019 07:45:00 AM EDT 3.375 g Intravenous abo rted 3.375 g, Intravenous, Administer over 4 Hours, Every 8 hours, First dose (after last reorder) on Sat12/30/19 at 0745, For 17 doses
This specific formulation of piperacillin-tazobactam is compatible with Lactated Ringers.
[facility] Medication administered onsite gadobutrol (GADAVIST) contrast injection 7 mL [id number] 04:30:00 AM EDT 0.1 mL/kg Intravenous completed 7 mL (ro unded from 7.3 mL = 0.1 mL/kg 73 kg), Intravenous, 1 TIME IMAGING, Sat12/30/19 at 0430, For 1 dose
Do not mix or administer in the same IV line with other medications.
[facility] Medication administered onsite lidocaine (XYLOCAINE) 2 % injection [id number] 12/29/2019 05:16:55 PM EDT completed Code/Trauma Medicati on, Starting Sat12/29/19 at 1716 [facility] Medication administered onsite iohexol (OMNIPAQUE) 300 MG/ML contrast injection 100 mL 1775 0412/29/2019 05:15:00 PM EDT 100 mL Given by IV completed 100 mL, Given by IV, 1 TIME IMAGING, Sat12/29/19 at 1715, For 1 dose [facility] Medication administered onsite ondansetron (ZOFRAN) injection [id number] 12/29/2019 04:58:02 PM EDT completed Code/Trauma Medication, Ihsan walters Sat12/29/19 at 1658 [facility] Medication administered onsite Rosuvastatin calcium 10 MG Oral Tablet rosuvastatin (C RESTOR) tablet 10 mg rosuvastatin (CRESTOR) tablet 10 mg 12/29/2019 09:00:00 AM EDT 10 mg Oral active 10 mg, Oral, Daily Standard, First dose (after last modification) on Sat12/29/19 at 0900, For 27 doses [facility] Medication administered onsite lidocaine (LIDODERM) 5 % patch 1 patch [id number] 0 09:00:00 AM EDT 1 {patch} Transdermal active 1 patch, T ransdermal, Daily Standard, First dose on Sat12/29/19 at 0900, For 30 days
Apply to right buttock area12 hours on - 12 hours off
[facility] Medication administered onsite iohexol (OMNIPAQUE) 300 MG/ML contrast injection 100 mL 1775 0412/29/2019 05:00:00 AM EDT 100 mL Given by IV completed 100 mL, Given by IV, 1 TIME IMAGING, Sat12/29/19 at 0500, For 1 dose [facility] Medication administered onsite Piperacillin 3000 MG / tazobactam 375 MG Injection Piperacillin-Tazobactam in Dex 3-0.375 GM/50ML Intravenous Solution (ZOSYN) Piperacillin-Tazobactam in Dex 3-0.375 GM/50ML Intravenous Solution (ZOSYN) 12/29/2019 12:00:00 AM EDT 3.375 g Intravenous active Inject 50 mLs into t he vein every 8 (eight) hours [facility] ondansetron (ZOFRAN) injection 4 mg [id number] 12/28/2019 11:30:0 0 PM EDT 4 mg Intravenous completed 4 mg, In travenous, Once, Sat12/28/19 at 2330, For 1 dose [facility] Medication administered onsite dextrose 5 % and 0.45 % NaCl with KCl 20 mEq infusion [id number] 12/28/2019 08:45:00 PM EDT Intravenous aborted at 100 mL/hr, Intravenous, Continuous, Starting Sat12/28/19 at 2045, For 2 days [facility] Medication administered onsite Piperacillin 3000 MG / tazobactam 375 MG Injection piperacillin-tazobactam (ZOSYN) IVPB 3.375 g (premix) piperacillin-tazobactam (ZOSYN) IVPB 3.3 75 g (premix) 12/28/2019 01:30:00 PM EDT 3.375 g Intravenous com pleted 3.375 g, Intravenous, Administer over 4 Hours, Every 8 hours, First dose (after last modification) on Sat12/28/19 at 1330, For 5 doses
This specific formulation of piperacillin-tazobactam is compatible with Lactated Ringers.
[facility] Medication administered onsite 0.4 ML Enoxaparin sodium 100 MG/ML Prefi lled Syringe enoxaparin sodium (LOVENOX) injection 40 mg enoxaparin sodium (LOVENOX) injection 40 mg 12/28/2019 09:00:00 AM EDT 40 mg Subcutaneous aborted 40 mg, Subcutaneous, Daily Standard, First dose on Sat12/28/19 at 0900, For 30 days [facility] Medication administered onsite potassium chloride (K-DUR) dissolvable tablet 40 mEq [id number] 12/28/2019 09:00:00 AM EDT 40 meq Oral completed 40 mEq, Oral, Daily Standard, First dose on Sat12/28/19 at 0900, For 3 days
May be dissolved in water for patients with a G-Tube or unable to swallow. If concern for clogging G-Tube, may contact Pharmacy to switch formulation to a powder packet.
[facility] Medication administered onsite iohexol (OMNIPAQUE) 240 MG/ML contrast 20 mL [id number] 05:00:00 AM EDT 20 mL Oral completed 20 mL, Oral, O nce PRN, Contrast, Per Protocol, Starting Sat12/28/19 at 0500, For [address] to tell RN administration time of first dose. Dilute in 500 mL liquid x1 Now per protocol. Use "Contrast dose chart" link for dosing guidelines.
[facility] Medication administered onsite iohexol (OMNIPAQUE) 240 MG/ML contrast 20 mL [id number] 05:00:00 AM EDT 20 mL Oral completed 20 mL, Oral, O nce PRN, Contrast, Per Protocol, Starting 12/28/19 at 0500, For [address] Scanner prior. automatic operator to CT.Dilute in 500 mL liquid x1 application dba to CT scan - per protocol. Use "Contrast dose chart" link for dosing guidelines.
[facility] Medication administered onsite ondansetron (ZOFRAN) injection 4 mg [id number] 12/27/2019 09:45:0 0 PM EDT 4 mg Intravenous completed 4 mg, In travenous, Once, 12/27/19 at 2145, For 1 dose [facility] Medication administered onsite Potassium Chloride 0.1 MEQ/ML Injectable Solution potassium chloride 10 mEq in 100 mL IVPB (premix) potassium chloride 10 mEq in 100 mL IVPB (premix) 12/27/2019 11:00:00 AM EDT 10 meq Intravenous completed 10 mEq, Intravenous, Administer over 60 Minutes, Every 1 hour, First dose on 12/27/19 at 1100, For 4 doses [facility] Medication administered onsite Bisacodyl 10 MG Rectal Suppository bisacodyl (DULCOLAX ) suppository 10 mg bisacodyl (DULCOLAX) suppository 10 mg 12/27/2019 10:44:12 AM EDT 10 mg Rectal active 10 mg, Rectal, Daily PRN, Constipation, Starting 12/27/19 at 1044, For 30 days [facility] Medication administered onsite dextrose 5 % and 0.45 % NaCl with KCl 20 mEq infusion [id number] 12/26/2019 06:15:00 PM EDT Intravenous completed at 100 mL/hr, Intravenous, Continuous, Starting 12/26/19 at 1815, For 2 days [facility] Medication administered onsite Glucose 0.417 MG/MG Oral Gel glucose (GLUTOSE) 40 % or al gel 15 g glucose (GLUTOSE) 40 % oral gel 15 g 12/26/2019 05:45:00 PM EDT 15 g Oral completed 15 g, Oral, Once, 12/26/19 a t 1745, For 1 dose [facility] Medication administered onsite Acetaminophen 10 MG/ML Injectable Soluti on acetaminophen (OFIRMEV) infusion 1,000 mg acetaminophen (OFIRMEV) infusion 1,000 mg 12/26/2019 04:15:00 PM EDT 1000 mg Intravenous completed 1,000 mg , Intravenous, Administer over 15 Minutes, Once, 12/26/19 at 1615, For 1 dose
Maximum dose 3 gm daily from all sources
[facility] Medication administered onsite sodium chloride 0.9 % bolus 2,190 mL [id number] 12/26/2019 04:00: 00 PM EDT 30 mL/kg Intravenous completed 2,190 mL (30 mL/kg 73 kg), Intravenous, Once, 12/26/19 at 1600, For 1 dose [facility] Medication administered onsite Potassium Chloride 0.1 MEQ/ML Injectable Solution potassium chloride 10 mEq in 100 mL IVPB (premix) potassium chloride 10 mEq in 100 mL IVPB (premix) 12/26/2019 04:00:00 PM EDT 10 meq Intravenous completed 10 mEq, Intravenous, Administer over 60 Minutes, Every 1 hour, First dose on 12/26/19 at 1600, For 4 doses [facility] Medication administered onsite Acetaminophen 325 MG Oral Tablet acetaminophen (TYLENO L) tablet 650 mg acetaminophen (TYLENOL) tablet 650 mg 12/26/2019 03:56:40 PM EDT 65 0 mg Oral completed 650 mg, Oral, E very 4 hours PRN, Mild Pain (Pain Scale Score 1-3), Fever, Starting 12/26/19 at 1556, For 10 days 1 hour
Maximum daily dose of acetaminophen is 3,000 mg from all sources in 24 hours.
[facility] Medication administered onsite 2 ML Midazolam 1 MG/ML Injection midazolam (PF) (VERSE D) injection midazolam (PF) (VERSED) injection 12/26/2019 02:24:46 PM EDT completed Code/Trauma Medication, Starting 12/26/19 at 1424 [facility] Medication administered onsite fentaNYL (SUBLIMAZE) (PF) injection [id number] 12/26/2019 02:24:40 PM EDT completed Code/Trauma Medicati on, Starting 12/26/19 at 1424 [facility] Medication administered onsite factor IX, human 31 UNT/ML / factor VII, human 25 UNT/ML / factor X, human 51 UNT/ML / protein C, human 41 UNT/ML / protein S, human 34 UNT/ML / prothrombin, human 40 UNT/ML Injectable Solution prothrombin complex (KCENTRA) injection 1,920 Units prothrombin complex (KCENTRA) injection 1,920 Units 11:00:00 AM EDT 1920 U Intravenous completed 1,920 Units, Intravenous, Once, 12/26/19 at 1100, For 1 dose
After administration is complete flush line with 50 mL Sodium Chloride 0.9 %.If used for warfarin reversal, Vitamin K should be administered concurrently with PCC (Kcentra). Kcentra should infuse at a rate not to exceed 8.4 mL/minute.
[facility] Medication administered onsite Rosuvastatin calcium 20 MG Oral Tablet rosuvastatin (C RESTOR) tablet 40 mg rosuvastatin (CRESTOR) tablet 40 mg 12/26/2019 09:00:00 AM EDT 40 mg Oral aborted 40 mg, Oral, Daily Standard, First dose on 12/26/19 at 0900, For 30 days [facility] Medication administered onsite albuterol (PROVENTIL HFA) inhaler 2 puff [id number] 12/26/2019 08:15:00 AM EDT 2 {puff} Inhalation active 2 pu ff, Inhalation, Every 6 hours, First dose on 12/26/19 at 0815, For 4 days
Shake the inhaler well before each spray.
[facility] Medication administered onsite 120 ACTUAT Fluticasone propionate 0.11 M G/ACTUAT Metered Dose Inhaler fluticasone (FLOVENT HFA) 110 MCG/ACT inhaler 1 puff fluticasone (FLOVENT HFA) 110 MCG/ACT inhaler 1 puff 12/26/2019 08:00:00 AM EDT 1 {puff} Inhala tion active 1 puff, Inhalation, 2 Times Daily, First dose on 12/26/19 at 0800, For 55 doses [facility] Medication administered onsite NaCl infusion 0.9 % [id number] 12/26/2019 03:15:00 AM EDT Intravenous aborted at 75 mL/hr, Intrave nous, Continuous, Starting 12/26/19 at 0315, For 1 day [facility] Medication administered onsite Piperacillin 3000 MG / tazobactam 375 MG Injection piperacillin-tazobactam (ZOSYN) IVPB 3.375 g (premix) piperacillin-tazobactam (ZOSYN) IVPB 3.3 75 g (premix) 12/26/2019 02:00:00 AM EDT 3.375 g Intravenous abo rted 3.375 g, Intravenous, Administer over 4 Hours, Every 8 hours, First dose on 12/26/19 at 0200, For 3 days
This specific formulation of piperacillin- tazobactam is compatible with Lactated Ringers.
[facility] Medication administered onsite NaCl infusion 0.9 % [id number] 12/26/2019 01:45:00 AM EDT Intravenous aborted at 75 mL/hr, Intrave nous, Continuous, Starting 12/26/19 at 0145, For 10 hours [facility] Medication administered onsite influenza vac split quad (FLUARIX) injection 6 months and ol julio cesar 0.5 mL [id number] 12/26/2019 01:41:29 AM EDT 0.5 mL Intramuscular active 0.5 mL, Intramuscular, Give Now, Starting 12/26/19 at 0141, For 1 dose [facility] Medication administered onsite 5 mg 12/17/2019 12:00:00 AM EDT tablet 60 TAKE ONE TABLET BY MOUTH TWICE A DAY TAKE ONE TABLET BY MOUTH TWICE A DAY SOLD: 12/18/2019 [facility] olopatadine 2 MG/ML Ophthalmic Solution Olopatadine HC l 0.2 % Olopatadine HCl 0.2 % 07/03/2019 12:00:00 AM EDT active 1 drop in each eye eCW1 ([facility]) olopatadine 2 MG/ML Ophthalmic Solution Olopatadine HC l 0.2 % Olopatadine HCl 0.2 % 07/03/2019 12:00:00 AM EDT active Olopatadine HCl 0.2 % eCW1 ([facility]) olopatadine 2 MG/ML Ophthalmic Solution Olopatadine HC l 0.2 % Olopatadine HCl 0.2 % 07/03/2019 12:00:00 AM EDT active Olopatadine HCl 0.2 % eCW1 ([facility]) olopatadine 1 MG/ML Ophthalmic Solution Olopatadine HC l 0.1 % Olopatadine HCl 0.1 % 07/01/2019 12:00:00 AM EDT active 1 drop into affected eye eCW1 ([facility]) 10 mg 06/17/2019 12:00:00 AM EDT tablet 90 TAKE ONE TABLET BY MOUTH EVERY DAY TAKE ONE TABLET BY MOUTH EVERY DAY SOLD: 06/19/2019 [facility] Rosuvastatin calcium 10 MG Oral Tablet ROSUVASTATIN CALCIUM 06/17/2019 12:00:00 AM EDT tablet 90 TAKE ONE TABLET BY MOUTH TAKE ONE TABLET BY MOUTH EVERY DAY SOLD: 10/02/2019 [facility] 10 mg 06/17/2019 12:00:00 AM EDT tablet 90 TAKE ONE TABLET BY MOUTH EVERY DAY TAKE ONE TABLET BY MOUTH EVERY DAY SOLD: 06/19/2019 [facility] 10 mg 06/17/2019 12:00:00 AM EDT tablet 90 TAKE ONE TABLET BY MOUTH EVERY DAY TAKE ONE TABLET BY MOUTH EVERY DAY SOLD: 10/23/2019 [facility] 10 mg 05/26/2019 12:00:00 AM EDT tablet 30 TAKE ONE TABLET BY MOUTH EVERY DAY TAKE ONE TABLET BY MOUTH EVERY DAY SOLD: 05/28/2019 [facility] 5 mg 05/08/2019 12:00:00 AM EST tablet 60 TAKE ONE TABLET BY MOUTH TWICE A DAY TAKE ONE TABLET BY MOUTH TWICE A DAY SOLD: 06/19/2019 [facility] 5 mg 05/08/2019 12:00:00 AM EST tablet 60 TAKE ONE TABLET BY MOUTH TWICE A DAY TAKE ONE TABLET BY MOUTH TWICE A DAY SOLD: 05/08/2019 [facility] 5 mg 05/08/2019 12:00:00 AM EST tablet 60 TAKE ONE TABLET BY MOUTH TWICE A DAY TAKE ONE TABLET BY MOUTH TWICE A DAY SOLD: 10/14/2019 [facility] 5 mg 05/08/2019 12:00:00 AM EST tablet 60 TAKE ONE TABLET BY MOUTH TWICE A DAY TAKE ONE TABLET BY MOUTH TWICE A DAY SOLD: 09/10/2019 [facility] 5 mg 05/08/2019 12:00:00 AM EST tablet 60 TAKE ONE TABLET BY MOUTH TWICE A DAY TAKE ONE TABLET BY MOUTH TWICE A DAY SOLD: 08/09/2019 [facility] 5 mg 05/08/2019 12:00:00 AM EST tablet 60 TAKE ONE TABLET BY MOUTH TWICE A DAY TAKE ONE TABLET BY MOUTH TWICE A DAY SOLD: 11/18/2019 [facility] Rosuvastatin calcium 10 MG Oral Tablet Rosuvastatin Ca lcium 10 MG Rosuvastatin Calcium 10 MG 04/27/2019 12:00:00 AM EST acti ve Rosuvastatin Calcium 10 MG eCW1 ([facility]) Mupirocin 0.02 MG/MG Topical Ointment Mupirocin 2 % Mupiroci n 2 % 04/27/2019 12:00:00 AM EST active as direc diony eCW1 ([facility]) 120 ACTUAT Fluticasone propionate 0.11 M G/ACTUAT Metered Dose Inhaler [Flovent] Flovent HFA 110 MCG/ACT Flovent HFA 110 MCG/ACT 04/27/2019 12:00:00 AM EST active 2 puffs eCW1 ([facility]) Nystatin 100 UNT/MG Topical Powder Nystatin [id number] UNI T/GM Nystatin [id number] UNIT/GM 04/27/2019 12:00:00 AM EST active Nystatin [id number] UNIT/GM eCW1 ([facility]) Amlodipine 10 MG Oral Tablet AmLODIPine Besylate 10 MG AmLODIPine Besylate 10 MG 04/27/2019 12:00:00 AM EST active 1 tablet eCW1 ([facility]) Nystatin 100 UNT/MG Topical Powder Nystatin [id number] UNI T/GM Nystatin [id number] UNIT/GM 04/27/2019 12:00:00 AM EST active as directed eCW1 ([facility]) Rosuvastatin calcium 10 MG Oral Tablet Rosuvastatin Ca lcium 10 MG Rosuvastatin Calcium 10 MG 04/27/2019 12:00:00 AM EST active 40 mg eCW1 ([facility]) Rosuvastatin calcium 10 MG Oral Tablet Rosuvastatin Ca lcium 10 MG Rosuvastatin Calcium 10 MG 04/27/2019 12:00:00 AM EST acti ve Rosuvastatin Calcium 10 MG eCW1 ([facility]) 5 mg 04/27/2019 12:00:00 AM EST tablet 30 TAKE ONE TABLET BY MOUTH TWICE A DAY TAKE ONE TABLET BY MOUTH TWICE A DAY SOLD: 04/27/2019 [facility] Amlodipine 10 MG Oral Tablet AmLODIPine Besylate 10 MG AmLODIPine Besylate 10 MG 04/27/2019 12:00:00 AM EST active 1 tablet eCW1 ([facility]) Apixaban 5 MG UNK 04/27/2019 12:00:00 AM EST acti ve 10 mg eCW1 ([facility]) Apixaban 5 MG UNK 04/27/2019 12:00:00 AM EST suspended Apixaban 5 MG eCW1 ([facility]) 120 ACTUAT Fluticasone propionate 0.11 M G/ACTUAT Metered Dose Inhaler [Flovent] Flovent HFA 110 MCG/ACT Flovent HFA 110 MCG/ACT 04/27/2019 12:00:00 AM EST active 2 puffs eCW1 ([facility]) Rosuvastatin calcium 10 MG Oral Tablet Rosuvastatin Ca lcium 10 MG Rosuvastatin Calcium 10 MG 04/27/2019 12:00:00 AM EST active 40 mg eCW1 ([facility]) 875-125 mg 04/27/2019 12:00:00 AM EST tablet 20 TAKE ONE TABLET BY MOUTH TWICE A DAY TAKE ONE TABLET BY MOUTH TWICE A DAY SOLD: 04/27/2019 [facility] Apixaban 5 MG UNK 04/27/2019 12:00:00 AM EST acti ve 1 tab eCW1 ([facility]) 100,000 unit/gram 04/27/2019 12:00:00 AM EST powder 30 APPLY TOPICALLY TWO TIMES A DAY APPLY TOPICALLY TWO TIMES A DAY SOLD: 04/27/2019 [facility] 10 mg 04/27/2019 12:00:00 AM EST tablet 30 TAKE ONE TABLET BY MOUTH EVERY DAY TAKE ONE TABLET BY MOUTH EVERY DAY SOLD: 04/27/2019 [facility] 120 ACTUAT Fluticasone propionate 0.11 M G/ACTUAT Metered Dose Inhaler [Flovent] Flovent HFA 110 MCG/ACT Flovent HFA 110 MCG/ACT 04/27/2019 12:00:00 AM EST active 2 puffs eCW1 ([facility]) Desitin 40 % Desitin 40 % 04/27/2019 12:00:00 AM EST active as directed eCW1 ([facility]) Rosuvastatin calcium 10 MG Oral Tablet Rosuvastatin Ca lcium 10 MG Rosuvastatin Calcium 10 MG 04/27/2019 12:00:00 AM EST active 40 mg eCW1 ([facility]) Mupirocin 0.02 MG/MG Topical Ointment Mupirocin 2 % Mupiroci n 2 % 04/27/2019 12:00:00 AM EST active as direc diony eCW1 ([facility]) Desitin 40 % Desitin 40 % 04/27/2019 12:00:00 AM EST active as directed eCW1 ([facility]) Rosuvastatin calcium 10 MG Oral Tablet Rosuvastatin Ca lcium 10 MG Rosuvastatin Calcium 10 MG 04/27/2019 12:00:00 AM EST acti ve Rosuvastatin Calcium 10 MG eCW1 ([facility]) Amlodipine 10 MG Oral Tablet AmLODIPine Besylate 10 MG AmLODIPine Besylate 10 MG 04/27/2019 12:00:00 AM EST active 1 tablet eCW1 ([facility]) Rosuvastatin calcium 10 MG Oral Tablet Rosuvastatin Ca lcium 10 MG Rosuvastatin Calcium 10 MG 04/27/2019 12:00:00 AM EST active 40 mg eCW1 ([facility]) Apixaban 5 MG UNK 04/27/2019 12:00:00 AM EST susp ended 1 tab eCW1 ([facility]) Amoxicillin 875 MG / Clavulanate 125 MG Oral Tablet Amoxicillin-Pot Clavulanate 875-125 MG Amoxicillin-Pot Clavulanate 875-125 MG 04/27/2019 12:00:00 AM ES T active 1 tablet eCW1 ([facility]) Amlodipine 10 MG Oral Tablet AmLODIPine Besylate 10 MG AmLODIPine Besylate 10 MG 04/27/2019 12:00:00 AM EST 1.0 {tablet} activ e AmLODIPine Besylate 10 MG eCW1 ([facility]) Apixaban 5 MG UNK 04/27/2019 12:00:00 AM EST acti ve 10 mg eCW1 ([facility]) Apixaban 5 MG UNK 04/27/2019 12:00:00 AM EST susp ended 1 tab eCW1 ([facility]) Apixaban 5 MG UNK 04/27/2019 12:00:00 AM EST acti ve 1 tab eCW1 ([facility]) Nystatin 100 UNT/MG Topical Powder Nystatin 871521 UNI T/GM Nystatin 189780 UNIT/GM 04/27/2019 12:00:00 AM EST active Nystatin 315405 UNIT/GM eCW1 ([facility]) 120 ACTUAT Fluticasone propionate 0.11 M G/ACTUAT Metered Dose Inhaler [Flovent] Flovent HFA 110 MCG/ACT Flovent HFA 110 MCG/ACT 04/27/2019 12:00:00 AM EST active 2 puffs eCW1 ([facility]) 2 % 04/27/2019 12:00:00 AM EST ointment 22 APPL Y TOPICALLY DAILY APPLY TOPICALLY DAILY SOLD: 04/27/2019 [facility] 110 mcg/actuation 04/27/2019 12:00:00 AM EST HFA aerosol inh aler 12 INHALE TWO PUFFS BY MOUTH TWICE A DAY INHALE TWO PUFFS BY MOUTH TWICE A DAY SOLD: 04/27/2019 [facility] Mupirocin 0.02 MG/MG Topical Ointment Mupirocin 2 % Mupiroci n 2 % 04/27/2019 12:00:00 AM EST suspended as di rected eCW1 ([facility]) Amlodipine 10 MG Oral Tablet AmLODIPine Besylate 10 MG AmLODIPine Besylate 10 MG 04/27/2019 12:00:00 AM EST 1.0 {tablet} activ e AmLODIPine Besylate 10 MG eCW1 ([facility]) Apixaban 5 MG UNK 04/27/2019 12:00:00 AM EST acti ve Apixaban 5 MG eCW1 ([facility]) 120 ACTUAT Fluticasone propionate 0.11 M G/ACTUAT Metered Dose Inhaler [Flovent] Flovent HFA 110 MCG/ACT Flovent HFA 110 MCG/ACT 04/27/2019 12:00:00 AM EST 2.0 {puffs} active Flovent HFA 110 MCG/ACT eCW1 ([facility]) Nystatin 100 UNT/MG Topical Powder Nystatin 335988 UNI T/GM Nystatin 051661 UNIT/GM 04/27/2019 12:00:00 AM EST active as directed eCW1 ([facility]) Amlodipine 10 MG Oral Tablet AmLODIPine Besylate 10 MG AmLODIPine Besylate 10 MG 04/27/2019 12:00:00 AM EST 1.0 {tablet} activ e AmLODIPine Besylate 10 MG eCW1 ([facility]) Apixaban 5 MG UNK 04/27/2019 12:00:00 AM EST suspended Apixaban 5 MG eCW1 ([facility]) Desitin 40 % Desitin 40 % 04/27/2019 12:00:00 AM EST active as directed eCW1 ([facility]) Mupirocin 0.02 MG/MG Topical Ointment Mupirocin 2 % Mupiroci n 2 % 04/27/2019 12:00:00 AM EST active as direc diony eCW1 ([facility]) Amlodipine 10 MG Oral Tablet amLODIPine Besylate 10 MG Oral Tablet (NORVASC) amLODIPine Besylate 10 MG Oral Tablet (NORVASC) 04/27/2019 12:00:00 AM EST active AmLODIPine Besylate 10 MG [facility] 40 mg 04/27/2019 12:00:00 AM EST tablet 30 TAKE ONE TABLET BY MOUTH EVERY DAY TAKE ONE TABLET BY MOUTH EVERY DAY SOLD: 04/27/2019 [facility] Amlodipine 10 MG Oral Tablet AmLODIPine Besylate 10 MG AmLODIPine Besylate 10 MG 04/27/2019 12:00:00 AM EST active 1 tablet eCW1 ([facility]) Desitin 40 % Desitin 40 % 04/27/2019 12:00:00 AM EST active as directed eCW1 ([facility]) Rosuvastatin calcium 10 MG Oral Tablet Rosuvastatin Ca lcium 10 MG Rosuvastatin Calcium 10 MG 04/27/2019 12:00:00 AM EST active 40 mg eCW1 ([facility]) Apixaban 5 MG UNK 04/27/2019 12:00:00 AM EST acti ve 1 tab eCW1 ([facility]) Nystatin 100 UNT/MG Topical Powder Nystatin 230666 UNI T/GM Nystatin 299125 UNIT/GM 04/27/2019 12:00:00 AM EST active as directed eCW1 ([facility]) Amoxicillin 875 MG / Clavulanate 125 MG Oral Tablet Amoxicillin-Pot Clavulanate 875-125 MG Amoxicillin-Pot Clavulanate 875-125 MG 04/27/2019 12:00:00 AM ES T active 1 tablet eCW1 ([facility]) Apixaban 5 MG UNK 04/27/2019 12:00:00 AM EST acti ve 1 tab eCW1 ([facility]) Apixaban 5 MG UNK 04/27/2019 12:00:00 AM EST susp ended 1 tab eCW1 ([facility]) Apixaban 5 MG UNK 04/27/2019 12:00:00 AM EST acti ve 1 tab eCW1 ([facility]) Apixaban 5 MG UNK 04/27/2019 12:00:00 AM EST acti ve Apixaban 5 MG eCW1 ([facility]) Nystatin 100 UNT/MG Topical Powder Nystatin 598770 UNI T/GM Nystatin 526724 UNIT/GM 04/27/2019 12:00:00 AM EST active as directed eCW1 ([facility]) Mupirocin 0.02 MG/MG Topical Ointment Mupirocin 2 % Mupiroci n 2 % 04/27/2019 12:00:00 AM EST active as direc diony eCW1 ([facility]) 120 ACTUAT Fluticasone propionate 0.11 M G/ACTUAT Metered Dose Inhaler [Flovent] Flovent HFA 110 MCG/ACT Flovent HFA 110 MCG/ACT 04/27/2019 12:00:00 AM EST active 2 puffs eCW1 ([facility]) Apixaban 5 MG UNK 04/27/2019 12:00:00 AM EST acti ve 1 tab eCW1 ([facility]) 120 ACTUAT Fluticasone propionate 0.11 M G/ACTUAT Metered Dose Inhaler [Flovent] Flovent HFA 110 MCG/ACT Flovent HFA 110 MCG/ACT 04/27/2019 12:00:00 AM EST active 2 puffs eCW1 ([facility]) Desitin 40 % Desitin 40 % 04/27/2019 12:00:00 AM EST active Desitin 40 % eCW1 ([facility]) Amlodipine 10 MG Oral Tablet AmLODIPine Besylate 10 MG AmLODIPine Besylate 10 MG 04/27/2019 12:00:00 AM EST active 1 tablet eCW1 ([facility]) Rosuvastatin calcium 10 MG Oral Tablet Rosuvastatin Ca lcium 10 MG Rosuvastatin Calcium 10 MG 04/27/2019 12:00:00 AM EST active 40 mg eCW1 ([facility]) Amlodipine 10 MG Oral Tablet AmLODIPine Besylate 10 MG AmLODIPine Besylate 10 MG 04/27/2019 12:00:00 AM EST active 1 tablet eCW1 ([facility]) Desitin 40 % Desitin 40 % 04/27/2019 12:00:00 AM EST active as directed eCW1 ([facility]) Desitin 40 % Desitin 40 % 04/27/2019 12:00:00 AM EST active Desitin 40 % eCW1 ([facility]) Nystatin 100 UNT/MG Topical Powder Nystatin 209377 UNI T/GM Nystatin 225928 UNIT/GM 04/27/2019 12:00:00 AM EST active as directed eCW1 ([facility]) Amlodipine 10 MG Oral Tablet AmLODIPine Besylate 10 MG AmLODIPine Besylate 10 MG 04/27/2019 12:00:00 AM EST active 1 tablet eCW1 ([facility]) Nystatin 100 UNT/MG Topical Powder Nystatin 136849 UNI T/GM Nystatin 837176 UNIT/GM 04/27/2019 12:00:00 AM EST active as directed eCW1 ([facility]) Rosuvastatin calcium 10 MG Oral Tablet Rosuvastatin Ca lcium 10 MG Rosuvastatin Calcium 10 MG 04/27/2019 12:00:00 AM EST active 40 mg eCW1 ([facility]) Desitin 40 % Desitin 40 % 04/27/2019 12:00:00 AM EST active as directed eCW1 ([facility]) 120 ACTUAT Fluticasone propionate 0.11 M G/ACTUAT Metered Dose Inhaler [Flovent] Flovent HFA 110 MCG/ACT Flovent HFA 110 MCG/ACT 04/27/2019 12:00:00 AM EST 2.0 {puffs} active Flovent HFA 110 MCG/ACT eCW1 ([facility]) 25 mg 03/19/2019 12:00:00 AM EST tablet 15 TAKE 1/2 TABLET BY MOUTH EVERY MORNING TAKE 1/2 TABLET BY MOUTH EVERY MORNING SOLD: 03/20/2019 [facility] 25 mg 03/19/2019 12:00:00 AM EST tablet 15 TAKE 1/2 TABLET BY MOUTH EVERY MORNING TAKE 1/2 TABLET BY MOUTH EVERY MORNING SOLD: 04/22/2019 [facility] Depend Underwear Large/XL - Depend Underwear Large/XL - 10/2019 12:00:00 AM EST active as directed eCW1 ([facility]) Depend Underwear Large/XL - Depend Underwear Large/XL - 10/2019 12:00:00 AM EST active Depend Underwear Large/XL - eCW1 ([facility]) Depend Underwear Large/XL - Depend Underwear Large/XL - 10/2019 12:00:00 AM EST active as directed eCW1 ([facility]) Doxycycline Monohydrate 100 MG Oral Capsule Doxycycline [place] hydrate 100 MG 03/18/2019 12:00:00 AM EST active 1 capsule eCW1 ([facility]) Depend Underwear Large/XL - UNK 03/18/2019 12:00:00 AM EST active as directed eCW1 ([facility]) Depend Underwear Large/XL - Depend Underwear Large/XL - 10/2019 12:00:00 AM EST active as directed eCW1 ([facility]) Depend Underwear Large/XL - Depend Underwear Large/XL - 0 10/2019 12:00:00 AM EST active as directed eCW1 ([facility]) Depend Underwear Large/XL - Depend Underwear Large/XL - 10/2019 12:00:00 AM EST active as directed eCW1 ([facility]) Depend Underwear Large/XL - Depend Underwear Large/XL - 10/2019 12:00:00 AM EST active as directed eCW1 ([facility]) Depend Underwear Large/XL - Depend Underwear Large/XL - 10/2019 12:00:00 AM EST active Depend Underwear Large/XL - eCW1 ([facility]) Doxycycline Monohydrate 100 MG UNK 03/18/2019 12:00:00 AM EST active 1 capsule eCW1 ([facility]) Depend Underwear Large/XL - Depend Underwear Large/XL - 10/2019 12:00:00 AM EST active as directed eCW1 ([facility]) 100 mg 03/18/2019 12:00:00 AM EST capsule 14 TAKE ONE CAPSULE BY MOUTH TWICE A DAY TAKE ONE CAPSULE BY MOUTH TWICE A DAY SOLD: 03/18/2019 [facility] 2 % 02/17/2019 12:00:00 AM EST ointment 22 APPLY TO AFFECTED AREA(S) THREE TIMES A DAY APPLY TO AFFECTED AREA(S) THREE TIMES A DAY SOLD: 02/17/2019 [facility] 800-160 mg 02/17/2019 12:00:00 AM EST tablet 20 TAKE ONE TABLET BY MOUTH EVERY 12 HOURS TAKE ONE TABLET BY MOUTH EVERY 12 HOURS SOLD: 02/17/2019 [facility] 50 mg 02/17/2019 12:00:00 AM EST tablet 12 TAKE ONE TABLET BY MOUTH EVERY 6 HOURS NEEDED FOR PAIN, MAXIMUM DAILY DOSE = FOUR TABLETS TAKE ONE TABLET BY MOUTH EVERY 6 HOURS NEEDED FOR PAIN, MAXIMUM DAILY DOSE = FOUR TABLETS SOLD: 02/17/2019 [facility] Amlodipine 10 MG Oral Tablet amLODIPine Besylate 10 MG Oral Tablet (NORVASC) amLODIPine Besylate 10 MG Oral Tablet (NORVASC) 10 mg Oral aborted Take 10 mg by mouth daily [facility] Insurance Providers Payer name Policy type / Coverage type Policy ID Covered alliance party ID Covered alliance party's relationship to [place] Policy [place] Plan Information RUFINO [id number] SP [id number] WELLCARE [id number] SP [id number] WELLCARE -O/P [id number] 18 [id number] MEDICARE [id number] SP [id number] MEDICAID [id number] Self [id number] WELLCARE MEDICARE HMO G [id number] Self [id number] MEDICAID M [id number] S [id number] WELLCARE O [id number] S [id number] MEDICAID [id number] SP [id number] WELLCARE [id number] SP [id number] MEDICARE [id number] SP [id number] WELLCARE [id number] ANSI-Medicare Part B [id number] ANSI-Medicare Part B [id number] ANSI-Medicaid [id number] ANSI-Health Maintenance Organization ( O) [id number] ANSI-Medicaid [id number] ANSI-Medicare Part B [id number] ANSI-Medicare Part B [id number] ANSI-Health Maintenance Organization ( O) [id number] ANSI-Medicare Part B [id number] ANSI-Medicare Part B [id number] ANSI-Health Maintenance Organization ( O) [id number] ANSI-Medicaid [id number] ANSI-Medicare Part B [id number] ANSI-Medicaid [id number] ANSI-Medicare Part B [id number] ANSI-Medicaid [id number] ANSI-Medicare Part B [id number] ANSI-Medicare Part B [id number] ANSI-Medicaid [id number] ANSI-Medicare Part B [id number] ANSI-Medicare Part B [id number] TODAYS OPTIONS [id number] SP [id number] TODAYS OPTIONS SP [id number] ANSI-Medicaid [id number] ANSI-Medicare Part B [id number] ANSI-Medicare Part B [id number] ANSI-Medicare Part B [id number] ANSI-Medicare Part B [id number] ANSI-Medicaid [id number] TODAYS OPTIONS [id number] SP [id number] MEDICAID [id number] SP [id number] ANSI-Medicaid [id number] ANSI-Medicare Part B [id number] [facility] [id number] [facility]-Medicaid [id number] ANSI-Medicare Part B [id number] ANSI-Medicare Part B [id number] Medicaid [place] [facility] Part B [id number] Self [id number] Today's Options Medicare Commercial [id number] Self [id number] MEDICAID [id number] SP [id number] TODAYS OPTIONS [id number] SP [id number] Medicaid [facility] Part B [id number] Self [id number] Today's Options Medicare Commercial [id number] Self [id number] MEDICARE [id number] SP [id number] D TODAYS OPTIONS [id number] SP [id number] MEDICAID [id number] SP [id number] TODAYS OPTIONS [id number] SP [id number] MEDICARE [id number] SP [id number] [facility] [id number] SP [id number] [facility] [id number] SP [id number] [facility] [id number] SP [id number] Problems, Conditions, and Diagnoses Code Display Name Description Problem Type Effective Dates Data Source(s) F17.211 [id number] Cigarette nicotine dependence in remissio n Problem 05/06/2019 12:00:00 AM EST eCW1 ([facility]) E78.2 [id number] Mixed hyperlipidemia Problem 05/06/2019 12:0 0:00 AM EST eCW1 ([facility]) J44.9 36582445 Chronic obstructive pulmonary di sease, unspecified COPD type Problem 05/06/2019 12:00:00 AM EST eCW1 ([facility]) E27.8 705671504 Adrenal hypertrophy Problem 05/06/2019 12:00 :00 AM EST eCW1 ([facility]) K76.89 16783970 Liver cyst Problem 05/06/2019 12:00:00 AM ES T eCW1 ([facility]) F17.211 662779234 Cigarette nicotine dependence in [facility] n Problem 05/06/2019 12:00:00 AM EST eCW1 ([facility]) E78.2 743676583 Mixed hyperlipidemia Problem 05/06/2019 12:0 0:00 AM EST eCW1 ([facility]) J44.9 94264280 Chronic obstructive pulmonary di sease, unspecified COPD type Problem 05/06/2019 12:00:00 AM EST eCW1 ([facility]) E27.8 176501718 Adrenal hypertrophy Problem 05/06/2019 12:00 :00 AM EST eCW1 ([facility]) K76.89 21606321 Liver cyst Problem 05/06/2019 12:00:00 AM ES T eCW1 ([facility]) E03.9 26746600 Subclinical hypothyroidism Problem 0 12:00:00 AM EST eCW1 ([facility]) 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 Problem 03/18/2019 12:00:00 AM EST eCW1 ([facility]) 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 Problem 03/18/2019 12:00:00 AM EST eCW1 ([facility]) Z1159 Encounter for screening for other viral diseases Encounter for screening for other viral diseases Diagnosis 03/14/2020 04:16:00 PM [facility] K5792 Diverticulitis of intestine, part unspecified, without perforation or abscess without bleeding Diverticulitis of intestine, part unspec ified, without perforation or abscess without bleeding Diagnosis 03/03/2020 06:57:00 AM [facility] R29.90 Unspecified symptoms and signs involving the nervous system Unspecified symptoms and signs involving the nervous system Diagnosis 2019 01:25:36 PM [facility] R47.9 Unspecified speech disturbances Unspecified speech dis turbances Diagnosis 03/02/2020 01:25:36 PM [facility] R53.1 Weakness Weakness Diagnosis 03/02/2020 01:25:36 PM [facility] E80228 Pressure ulcer of sacral region, unspeci fied stage Pressure ulcer of sacral region, unspecified stage Diagnosis 02/02/2020 07:45:00 AM [facility] I10 Essential (primary) hypertension Essential (primary) h ypertension Diagnosis 02/02/2020 07:45:00 AM [facility] K5732 Diverticulitis of large inte jose without perforation or abscess without bleeding Diverticulitis of large intestine withou t perforation or abscess without bleeding Diagnosis 02/02/2020 07:45:00 AM [facility] 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 Non- pressure chronic ulcer of buttock with unspecified severity Diagnosis 01/06/2020 10:39:47 AM [facility] I82.4Z9 Acute embolism and thrombosi s of unspecified deep veins of unspecified distal lower extremity Acute embolism and thrombosis of unspeci fied deep veins of unspecified distal lower extremity Diagnosis 01/06/2020 09:22:41 AM [facility] I10 Essential (primary) hypertension Essential (primary) h ypertension Diagnosis 01/06/2020 09:22:40 AM [facility] K56.609 Unspecified intestinal obstr uction, unspecified as to partial versus complete obstruction Unspecified intestinal obstruction, unsp ecified as to partial versus complete obstruction Diagnosis 01/06/2020 09:22:38 AM [facility] Colonic diverticular abscess Colonic diverticular absc ess Diagnosis 12/26/2019 04:24:36 PM [facility] Diverticulitis Diverticulitis Diagnosis [facility]24[facility] diverticulitis with absces s Diagnosis 12/26/2019 04:24:36 PM [facility] K57.20 Diverticulitis of large inte jose with perforation and abscess without bleeding Diverticulitis of large intestine with p erforation and abscess without bleeding Diagnosis [facility] Altered mental status, unspecified Altered menta l status, unspecified Diagnosis 12/26/2019 12:52:00 AM [facility] A02.1 Salmonella sepsis Salmonella sepsis Diagnosis 12/26/2019 12:52:00 AM [facility] Surgeries/Procedures Procedure Description Date Indications Data Source(s) POCT GLUCOSE, DOCKED POCT GLUCOSE, DOCKED Routine 01/09/2020 3:57 PM EDT 01/09/2020 03:57:00 PM [facility] POCT GLUCOSE, DOCKED POCT GLUCOSE, DOCKED Routine 01/09/2020 7:42 AM EDT 01/09/2020 07:42:00 AM [facility] BASIC METABOLIC PANEL CALCIUM TOTAL BASIC METABOLIC PANEL Routi ne 01/09/2020 5:05 AM EDT 01/09/2020 05:05:[address] [facility] BLOOD COUNT COMPLETE AUTO&AUTO DIFRNTL WBC COUNT CBC AND DIFFER ENTIAL Routine 01/09/2020 12:55 AM EDT 01/09/2020 12:55:00 AM [facility] PHOSPHORUS INORGANIC PHOSPHORUS LEVEL Routine 01/09/2020 12:55 AM E DT 01/09/2020 12:55:00 AM [facility] MAGNESIUM MAGNESIUM LEVEL Routine 01/09/2020 12:55 AM EDT 01/09/2020 12:55:00 AM [facility] GLUCOSE QUANTITATIVE BLOOD XCPT REAGENT STRIP POCT GLUCOSE, DOC KED Routine 01/08/2020 9:41 PM EDT 01/08/2020 09:41:00 PM [facility] CNTRST NJX ASSMT ABSC/LUMBER CHECKER VIA DRG CATH/TUBE SPX IR SINOGRAM Routine 01/08/2020 6:30 PM EDT 01/08/2020 06:30:[address] [facility] GLUCOSE QUANTITATIVE BLOOD XCPT REAGENT STRIP POCT GLUCOSE, DOC KED Routine 01/08/2020 3:59 PM EDT 01/08/2020 03:59:00 PM [facility] GLUCOSE QUANTITATIVE BLOOD XCPT REAGENT STRIP POCT GLUCOSE, DARA BERNAL Routine 01/08/2020 8:43 AM EDT 01/08/2020 08:43:00 AM [facility] BLOOD COUNT COMPLETE AUTO&AUTO DIFRNTL WBC COUNT CBC AND DIFFER ENTIAL Routine 01/08/2020 4:34 AM EDT 01/08/2020 04:34:00 AM [facility] PHOSPHORUS INORGANIC PHOSPHORUS LEVEL Routine 01/08/2020 4:34 AM E DT 01/08/2020 04:34:00 AM [facility] MAGNESIUM MAGNESIUM LEVEL Routine 01/08/2020 4:34 AM EDT 01/08/2020 04:34:00 AM [facility] BASIC METABOLIC PANEL CALCIUM TOTAL BASIC METABOLIC PANEL Routi ne 01/08/2020 4:34 AM EDT 01/08/2020 04:34:[address] [facility] GLUCOSE QUANTITATIVE BLOOD XCPT REAGENT STRIP POCT GLUCOSE, DARA BERNAL Routine 01/08/2020 12:37 AM EDT 01/08/2020 12:37:00 AM [facility] GLUCOSE QUANTITATIVE BLOOD XCPT REAGENT STRIP POCT GLUCOSE, DARA BERNAL Routine 01/07/2020 5:09 PM EDT 01/07/2020 05:09:00 PM [facility] GLUCOSE QUANTITATIVE BLOOD XCPT REAGENT STRIP POCT GLUCOSE, DARA BERNAL Routine 01/07/2020 8:59 AM EDT 01/07/2020 08:59:00 AM [facility] XR ABDOMEN AP ABD SUPINE ONLY [id number] XR ABDOMEN AP ABD SUPIN E ONLY [id number] Routine 01/07/2020 4:15 AM EDT 01/07/2020 04:15:12 AM [facility] BLOOD COUNT COMPLETE AUTO&AUTO DIFRNTL WBC COUNT CBC AND DIFFER ENTIAL Routine 01/07/2020 3:31 AM EDT 01/07/2020 03:31:00 AM [facility] PHOSPHORUS INORGANIC PHOSPHORUS LEVEL Routine 01/07/2020 3:31 AM E DT 01/07/2020 03:31:00 AM [facility] MAGNESIUM MAGNESIUM LEVEL Routine 01/07/2020 3:31 AM EDT 01/07/2020 03:31:00 AM [facility] BASIC METABOLIC PANEL CALCIUM TOTAL BASIC METABOLIC PANEL Routi ne 01/07/2020 3:31 AM EDT 01/07/2020 03:31:[address] [facility] GLUCOSE QUANTITATIVE BLOOD XCPT REAGENT STRIP POCT GLUCOSE, DARA BERNAL Routine 01/07/2020 12:01 AM EDT 01/07/2020 12:01:00 AM [facility] [facility] GLUCOSE QUANTITATIVE BLOOD XCPT REAGENT STRIP POCT GLUCOSE, DARA BERNAL Routine 01/06/2020 3:57 PM EDT 01/06/2020 03:57:00 PM [facility] GLUCOSE QUANTITATIVE BLOOD XCPT REAGENT STRIP POCT GLUCOSE, DARA BERNAL Routine 01/06/2020 7:48 AM EDT 01/06/2020 07:48:00 AM [facility] BLOOD COUNT COMPLETE AUTO&AUTO DIFRNTL WBC COUNT CBC AND DIFFER ENTIAL Routine 01/06/2020 12:56 AM EDT 01/06/2020 12:56:00 AM [facility] PHOSPHORUS INORGANIC PHOSPHORUS LEVEL Routine 01/06/2020 12:56 AM E DT 01/06/2020 12:56:00 AM [facility] MAGNESIUM MAGNESIUM LEVEL Routine 01/06/2020 12:56 AM EDT 01/06/2020 12:56:00 AM [facility] BASIC METABOLIC PANEL CALCIUM TOTAL BASIC METABOLIC PANEL Routi ne 01/06/2020 12:56 AM EDT 01/06/2020 12:56:[address] [facility] GLUCOSE QUANTITATIVE BLOOD XCPT REAGENT STRIP POCT GLUCOSE, DARA BERNAL Routine 01/06/2020 12:50 AM EDT 01/06/2020 12:50:00 AM [facility] GLUCOSE QUANTITATIVE BLOOD XCPT REAGENT STRIP POCT GLUCOSE, DARA BERNAL Routine 01/05/2020 3:59 PM EDT 01/05/2020 03:59:00 PM [facility] GLUCOSE QUANTITATIVE BLOOD XCPT REAGENT STRIP POCT GLUCOSE, DARA BERNAL Routine 01/05/2020 8:38 AM EDT 01/05/2020 08:38:00 AM [facility] GLUCOSE QUANTITATIVE BLOOD XCPT REAGENT STRIP POCT GLUCOSE, DARA BERNAL Routine 01/05/2020 4:24 AM EDT 01/05/2020 04:24:00 AM [facility] BLOOD COUNT COMPLETE AUTO&AUTO DIFRNTL WBC COUNT CBC AND DIFFER ENTIAL Routine 01/05/2020 1:37 AM EDT [facility]/05[facility]2020 [facility]ORGANIC PHOSPHORUS LEVEL Routine 01/05/2020 1:37 AM E DT 01/05/2020 01:37:00 AM [facility] MAGNESIUM MAGNESIUM LEVEL Routine 01/05/2020 1:37 AM EDT 01/05/2020 01:37:00 AM [facility] BASIC METABOLIC PANEL CALCIUM TOTAL BASIC METABOLIC PANEL Routi ne 01/05/2020 1:37 AM EDT 01/05/2020 01:37:[address] [facility] XR CHEST FRONTAL ONLY 98469 XR CHEST FRONTAL ONLY [id number] STAT 01/04/2020 7:15 PM EDT 01/04/2020 07:15:[address] [facility] GLUCOSE QUANTITATIVE BLOOD XCPT REAGENT STRIP POCT GLUCOSE, DARA KED Routine 01/04/2020 5:33 PM EDT 01/04/2020 05:33:00 PM [facility] XR ABDOMEN AP ABD SUPINE ONLY 85232 XR ABDOMEN AP ABD SUPIN E ONLY [id number] Routine 01/04/2020 4:02 PM EDT 01/04/2020 04:02:00 PM [facility] COMPREHENSIVE METABOLIC PANEL COMPREHENSIVE METABOLIC PANEL Rou charley 01/04/2020 2:04 PM EDT 01/04/2020 02:04:[address] [facility] GLUCOSE QUANTITATIVE BLOOD XCPT REAGENT STRIP POCT GLUCOSE, DARA KED Routine 01/04/2020 12:12 PM EDT 01/04/2020 12:12:00 PM [facility] GLUCOSE QUANTITATIVE BLOOD XCPT REAGENT STRIP POCT GLUCOSE, DOC KED Routine 01/04/2020 8:39 AM EDT 01/04/2020 08:39:00 AM [facility] BLOOD COUNT COMPLETE AUTOMATED CBC AND DIFFERENTIAL Routine 01/04/2020 3:03 AM EDT 01/04/2020 03:03:[address] [facility] TRIGLYCERIDES TRIGLYCERIDES Routine 01/04/2020 3:03 AM EDT 01/04/2020 03:03:00 AM [facility] PHOSPHORUS INORGANIC PHOSPHORUS LEVEL Routine 01/04/2020 3:03 AM E DT 01/04/2020 03:03:00 AM [facility] MAGNESIUM MAGNESIUM LEVEL Routine 01/04/2020 3:03 AM EDT 01/04/2020 03:03:00 AM [facility] CALCIUM IONIZED CALCIUM, IONIZED Routine 01/04/2020 3:03 AM EDT 01/04/2020 03:03:00 AM [facility] BASIC METABOLIC PANEL CALCIUM TOTAL BASIC METABOLIC PANEL Routi ne 01/04/2020 3:03 AM EDT 01/04/2020 03:03:[address] [facility] GLUCOSE QUANTITATIVE BLOOD XCPT REAGENT STRIP POCT GLUCOSEDARA KED Routine 01/04/2020 1:24 AM EDT 01/04/2020 01:24:00 AM [facility] PICC ULTRASOUND - BEDSIDE PROCEDURE PICC ULTRASOUND - BEDSI DE PROCEDURE Routine 01/03/2020 6:51 PM EDT 01/03/2020 06:51:00 PM [facility] GLUCOSE QUANTITATIVE BLOOD XCPT REAGENT STRIP POCT GLUCOSEDARA KED Routine 01/03/2020 5:36 PM EDT 01/03/2020 05:36:00 PM [facility] BASIC METABOLIC PANEL CALCIUM TOTAL BASIC METABOLIC PANEL Routi ne 01/03/2020 5:19 PM EDT 01/03/2020 05:19:[address] [facility] CT ABDOEN & PELVIS W/CONTRAST MATERIAL CT ABDOMEN PELVIS WI TH CONTRAST [id number] STAT 01/03/2020 1:23 PM EDT 01/03/2020 01:23:53 PM [facility] GLUCOSE QUANTITATIVE BLOOD XCPT REAGENT STRIP POCT GLUCOSE, DARA KED Routine 01/03/2020 12:27 PM EDT 01/03/2020 12:27:00 PM [facility] GLUCOSE QUANTITATIVE BLOOD XCPT REAGENT STRIP POCT GLUCOSEDARA KED Routine 01/03/2020 8:41 AM EDT 01/03/2020 08:41:00 AM [facility] GLUCOSE QUANTITATIVE BLOOD XCPT REAGENT STRIP POCT GLUCOSE, DARA KED Routine 01/03/2020 6:16 AM EDT 01/03/2020 06:16:00 AM [facility] PROTHROMBIN TIME PROTIME INR Routine 01/03/2020 3:54 AM EDT 01/03/2020 03:54:00 AM [facility] BLOOD COUNT COMPLETE AUTO&AUTO DIFRNTL WBC COUNT CBC AND DIFFER ENTIAL Routine 01/03/2020 3:54 AM EDT 01/03/2020 03:54:00 AM [facility] BASIC METABOLIC PANEL CALCIUM TOTAL BASIC METABOLIC PANEL Routi ne 01/03/2020 3:54 AM EDT 01/03/2020 03:54:[address] [facility] GLUCOSE QUANTITATIVE BLOOD XCPT REAGENT STRIP POCT GLUCOSE, DARA BERNAL Routine 01/02/2020 11:53 PM EDT 01/02/2020 11:53:00 PM [facility] GLUCOSE QUANTITATIVE BLOOD XCPT REAGENT STRIP POCT GLUCOSE, DARA BERNAL Routine 01/02/2020 8:52 PM EDT 01/02/2020 08:52:00 PM [facility] GLUCOSE QUANTITATIVE BLOOD XCPT REAGENT STRIP POCT GLUCOSE, DARA BERNAL Routine 01/02/2020 5:45 PM EDT 01/02/2020 05:45:00 PM [facility] GLUCOSE QUANTITATIVE BLOOD XCPT REAGENT STRIP POCT GLUCOSE, DARA BERNAL Routine 01/02/2020 4:05 PM EDT 01/02/2020 04:05:00 PM [facility] GLUCOSE QUANTITATIVE BLOOD XCPT REAGENT STRIP POCT GLUCOSE, DARA BERNAL Routine 01/02/2020 2:55 PM EDT 01/02/2020 02:55:00 PM [facility] GLUCOSE QUANTITATIVE BLOOD XCPT REAGENT STRIP POCT GLUCOSE, DARA BERNAL Routine 01/02/2020 1:47 PM EDT 01/02/2020 01:47:00 PM [facility] GLUCOSE QUANTITATIVE BLOOD XCPT REAGENT STRIP POCT GLUCOSE, DARA BERNAL Routine 01/02/2020 1:27 PM EDT 01/02/2020 01:27:00 PM [facility] GLUCOSE QUANTITATIVE BLOOD XCPT REAGENT STRIP POCT GLUCOSE, DARA BERNAL Routine 01/02/2020 12:43 PM EDT 01/02/2020 12:43:00 PM [facility] XR ABDOMEN AP ABD SUPINE ONLY 48364 [place] [address] STAT 01/02/2020 8:17 AM EDT 01/02/2020 08:17:00 AM [facility] BLOOD COUNT COMPLETE AUTO&AUTO DIFRNTL WBC COUNT CBC AND DIFFER ENTIAL Routine 01/02/2020 4:02 AM EDT 01/02/2020 04:02:00 AM [facility] BASIC METABOLIC PANEL CALCIUM TOTAL BASIC METABOLIC PANEL Routi ne 01/02/2020 4:02 AM EDT 01/02/2020 04:02:[address] [facility] XR ABDOMEN AP ABD SUPINE ONLY 71909 [place] [address] STAT 01/01/2020 7:38 PM EDT 01/01/2020 07:38:00 PM [facility] GLUCOSE QUANTITATIVE BLOOD XCPT REAGENT STRIP POCT GLUCOSE, DOC DOLORES Routine 01/01/2020 5:37 PM EDT 01/01/2020 05:37:00 PM [facility] ULTRASOUND TRANSVAGINAL US TRANSVAGINAL [id number] Routine 020 3:19 PM EDT 01/01/2020 03:19:56 PM EDT [facility] GLUCOSE QUANTITATIVE BLOOD XCPT REAGENT STRIP POCT GLUCOSE, DOC DOLORES Routine 01/01/2020 12:16 PM EDT 01/01/2020 12:16:00 PM [facility] GLUCOSE QUANTITATIVE BLOOD XCPT REAGENT STRIP POCT GLUCOSE, DOC DOLORES Routine 01/01/2020 9:01 AM EDT 01/01/2020 09:01:00 AM [facility] RADEX SMALL INTESTINE W/MULTIPLE SERIAL FILMS FLUORO SMALL BOWEL SERIES SINGLE CONTRAST STUDY 24469 Routine 01/01/2020 8:00 AM EDT 01/01/2020 08:00:00 AM [facility] BLOOD COUNT COMPLETE AUTOMATED CBC AND DIFFERENTIAL Routine 01/01/2020 3:10 AM EDT 01/01/2020 03:10:[address] [facility] PHOSPHORUS INORGANIC PHOSPHORUS LEVEL Routine 01/01/2020 3:10 AM E DT 01/01/2020 03:10:00 AM [facility] MAGNESIUM MAGNESIUM LEVEL Routine 01/01/2020 3:10 AM EDT 01/01/2020 03:10:00 AM [facility] BASIC METABOLIC PANEL CALCIUM TOTAL BASIC METABOLIC PANEL Routi ne 01/01/2020 3:10 AM EDT 01/01/2020 03:10:[address] [facility] GLUCOSE QUANTITATIVE BLOOD XCPT REAGENT STRIP POCT GLUCOSE, DOC DOLORES Routine 12/31/2019 9:41 PM EDT 12/31/2019 09:41:00 PM [facility] GLUCOSE QUANTITATIVE BLOOD XCPT REAGENT STRIP POCT GLUCOSE, DOC DOLORES Routine 12/31/2019 9:24 PM EDT 12/31/2019 09:24:00 PM [facility] GLUCOSE QUANTITATIVE BLOOD XCPT REAGENT STRIP POCT GLUCOSE, DARA BERNAL Routine 12/31/2019 5:42 PM EDT 12/31/2019 05:42:00 PM [facility] GLUCOSE QUANTITATIVE BLOOD XCPT REAGENT STRIP POCT GLUCOSE, DOC KEMaru Routine 12/31/2019 12:41 PM EDT 12/31/2019 12:41:00 PM [facility] CULTURE BACTERIAL BLOOD AEROBIC W/ID ISOLATES BLOOD CULTURE R outine 12/31/2019 12:27 PM EDT 12/31/2019 12:27:[address] [facility] CULTURE BACTERIAL BLOOD AEROBIC W/ID ISOLATES BLOOD CULTURE R outine 12/31/2019 12:27 PM EDT 12/31/2019 12:27:[address] [facility] CARDIAC REPORT CARDIAC REPORT 12/31/2019 12:13 PM EDT 12/31/2019 12:13:21 PM [facility] RADIOLOGY REPORT RADIOLOGY REPORT 12/31/2019 12:13 PM EDT 12/31/2019 12:13:15 PM [facility] GLUCOSE QUANTITATIVE BLOOD XCPT REAGENT STRIP POCT GLUCOSE, DARA MERINOD Routine 12/31/2019 8:46 AM EDT 12/31/2019 08:46:00 AM [facility] BLOOD COUNT COMPLETE AUTO&AUTO DIFRNTL WBC COUNT CBC AND DIFFER ENTIAL Routine 12/31/2019 3:50 AM EDT 12/31/2019 03:50:00 AM [facility] PHOSPHORUS INORGANIC PHOSPHORUS LEVEL Routine 12/31/2019 3:50 AM E DT 12/31/2019 03:50:00 AM [facility] MAGNESIUM MAGNESIUM LEVEL Routine 12/31/2019 3:50 AM EDT 12/31/2019 03:50:00 AM [facility] BASIC METABOLIC PANEL CALCIUM TOTAL BASIC METABOLIC PANEL Routi ne 12/31/2019 3:50 AM EDT 12/31/2019 03:50:[address] [facility] GLUCOSE QUANTITATIVE BLOOD XCPT REAGENT STRIP POCT GLUCOSE, DOC KED Routine 12/30/2019 9:18 PM EDT 12/30/2019 09:18:00 PM [facility] XR CHEST FRONTAL ONLY 59542 XR CHEST FRONTAL ONLY [id number] Routine 12/30/2019 5:25 PM EDT 12/30/2019 05:25:[address] [facility] GLUCOSE QUANTITATIVE BLOOD XCPT REAGENT STRIP POCT GLUCOSE, DOC KED Routine 12/30/2019 5:00 PM EDT 12/30/2019 05:00:00 PM [facility] GLUCOSE QUANTITATIVE BLOOD XCPT REAGENT STRIP POCT GLUCOSE, DOC KED Routine 12/30/2019 12:50 PM EDT 12/30/2019 12:50:00 PM [facility] MRI BRAIN BRAIN STEM W/O &W/CONTRAST MATERIAL MR AARON N WITH AND WITHOUT CONTRAST [id number] STAT 12/30/2019 4:32 AM EDT Altered mental status, unspecified altered mental status type 12/30/2019 04:32:49 AM EDT Altered mental status, unspecified altered mental stat us type [facility] Altered mental status, unspecified alter ed mental status type PHOSPHORUS INORGANIC PHOSPHORUS LEVEL Routine 12/30/2019 2:51 AM E DT 12/30/2019 02:51:00 AM [facility] MAGNESIUM MAGNESIUM LEVEL Routine 12/30/2019 2:51 AM EDT 12/30/2019 02:51:00 AM [facility] BASIC METABOLIC PANEL CALCIUM TOTAL BASIC METABOLIC PANEL Routi ne 12/30/2019 2:51 AM EDT 12/30/2019 02:51:[address] [facility] BLOOD COUNT COMPLETE AUTOMATED CBC AND DIFFERENTIAL Routine 12/30/2019 2:51 AM EDT 12/30/2019 02:51:[address] [facility] CUL BACT XCPT URINE BLOOD/STOOL AEROBIC ISOL WOUND CULTURE Ro utine 12/29/2019 8:03 PM EDT 12/29/2019 08:03:[address] [facility] IR IMAGE GUIDED NEEDLE DRAIN PROCEDURE IR IMAGE GUIDED NEED LE DRAIN PROCEDURE Routine 12/29/2019 5:50 PM EDT 12/29/2019 05:50:00 PM [facility] PROTHROMBIN TIME PROTIME INR Routine 12/29/2019 1:49 PM EDT 12/29/2019 01:49:00 PM [facility] CT ABDOEN & PELVIS W/CONTRAST MATERIAL CT ABDOMEN PELVIS WI TH CONTRAST [id number] Routine 12/29/2019 5:13 AM EDT 12/29/2019 05:13:50 AM [facility] BLOOD COUNT COMPLETE AUTO&AUTO DIFRNTL WBC COUNT CBC AND DIFFER ENTIAL Routine 12/29/2019 3:11 AM EDT 12/29/2019 [facility] BAS[facility] METABOLIC PANEL CALCIUM TOTAL BASIC METABOLIC PANEL Routi ne 12/29/2019 3:11 AM EDT 12/29/2019 03:11:[address] [facility] GLUCOSE QUANTITATIVE BLOOD XCPT REAGENT STRIP POCT GLUCOSE, DOC KED Routine 12/29/2019 1:30 AM EDT 12/29/2019 01:30:[facility] CHEST FRONTAL ONLY 45718 XR CHEST FRONTAL ONLY 24081 STAT 12/29/2019 12:20 AM EDT 12/29/2019 12:20:[address] [facility] XR ABDOMEN AP ABD SUPINE ONLY 92917 XR ABDOMEN AP ABD SUPIN E ONLY [id number] Routine 12/28/2019 9:02 PM EDT 12/28/2019 09:02:[facility] CHEST FRONTAL ONLY 82922 XR CHEST FRONTAL ONLY 38825 Routine 12/28/2019 4:25 PM EDT 12/28/2019 04:25:[address] [facility] RADIOLOGIC EXAMINATION FOOT 2 VIEWS XR FOOT AP AND LATERAL 7362 0 Routine 12/28/2019 3:20 PM EDT 12/28/2019 03:20:32 [facility] BLOOD COUNT COMPLETE AUTOMATED CBC AND DIFFERENTIAL Routine 12/28/2019 3:30 AM EDT 12/28/2019 03:30:[address] [facility] BASIC METABOLIC PANEL CALCIUM TOTAL BASIC METABOLIC PANEL Routi ne 12/28/2019 3:30 AM EDT 12/28/2019 03:30:[address] [facility] BASIC METABOLIC PANEL CALCIUM TOTAL BASIC METABOLIC PANEL Routi ne 12/27/2019 6:41 PM EDT 12/27/2019 06:41:[address] [facility] BLOOD COUNT COMPLETE AUTO&AUTO DIFRNTL WBC COUNT CBC AND DIFFER ENTIAL Routine 12/27/2019 4:05 AM EDT 12/27/2019 04:05:00 AM [facility] LACTATE LACTIC ACID LEVEL, PLASMA Timed 12/27/2019 4:05 AM EDT 12/27/2019 04:05:00 AM [facility] BASIC METABOLIC PANEL CALCIUM TOTAL BASIC METABOLIC PANEL Routi ne 12/27/2019 4:05 AM EDT 12/27/2019 04:05:00 AM EDT [facility] CT HEAD/BRAIN W/O CONTRAST MATERIAL CT HEAD WITHOUT CONTRAST 70 450 Urgent 12/26/2019 11:10 PM EDT 12/26/2019 11:10:30 PM EDT [facility] LACTATE LACTIC ACID LEVEL, PLASMA Timed 12/26/2019 9:44 PM EDT 12/26/2019 09:44:00 PM EDT [facility] LACTATE LACTIC ACID LEVEL, PLASMA STAT 12/26/2019 7:31 PM EDT 12/26/2019 07:31:00 PM EDT [facility] GLUCOSE QUANTITATIVE BLOOD XCPT REAGENT STRIP POCT GLUCOSE, DOC KED Routine 12/26/2019 6:43 PM EDT 12/26/2019 06:43:[facility]SE QUANTITATIVE BLOOD XCPT REAGENT STRIP POCT GLUCOSE, DOC KED Routine 12/26/2019 5:20 PM EDT 12/26/2019 05:20:[facility] SEPSIS WORKUP SEPSIS WORKUP Routine 12/26/2019 4:45 PM EDT Sepsis due to Salmonella species without acute organ dysfunction 12/26/2019 04:45:10 PM EDT Sepsis due to Salmonella species without acute organ dysfunction [facility] Sepsis due to Salmonella species without acute organ dysfunction CUL BACT XCPT URINE BLOOD/STOOL AEROBIC ISOL WOUND CULTURE Ro utine 12/26/2019 4:41 PM EDT 12/26/2019 04:41:[address] [facility] XR ABDOMEN AP ERECT ONLY 89629 XR ABDOMEN AP ERECT ONLY 50527 C ODE 12/26/2019 4:35 PM EDT 12/26/2019 04:35:[address] [facility] BLOOD COUNT COMPLETE AUTO&AUTO DIFRNTL WBC COUNT CBC AND DIFFER ENTIAL Routine 12/26/2019 4:05 PM EDT 12/26/2019 04:05:[facility] LACTATE LACTIC ACID LEVEL, PLASMA Timed 12/26/2019 4:05 PM EDT 12/26/2019 04:05:[facility] BASIC METABOLIC PANEL CALCIUM TOTAL BASIC METABOLIC PANEL Routi ne 12/26/2019 4:05 PM EDT 12/26/2019 04:05:[address] [facility] CULTURE BACTERIAL BLOOD AEROBIC W/ID ISOLATES BLOOD CULTURE S TAT 12/26/2019 4:02 PM EDT 12/26/2019 04:02:[address] [facility] CULTURE BACTERIAL BLOOD AEROBIC W/ID ISOLATES BLOOD CULTURE S TAT 12/26/2019 4:02 PM EDT 12/26/2019 04:02:[address] [facility] EKG 12-LEAD - CMAXX REPORT EKG 12-LEAD - CMAXX REPORT 12/26/2019 3:38 PM EDT 12/26/2019 03:38:[address] [facility] EKG 12-LEAD - CMAXX REPORT EKG 12-LEAD - CMAXX REPORT 12/26/2019 3:38 PM EDT 12/26/2019 03:38:[address] [facility] EKG 12-LEAD EKG 12-LEAD Routine 12/26/2019 3:38 PM EDT 12/26/2019 03:38:12 PM [facility] IR IMAGE GUIDED NEEDLE DRAIN PROCEDURE IR IMAGE GUIDED NEED LE DRAIN PROCEDURE Routine 12/26/2019 3:05 PM EDT 12/26/2019 03:05:54 PM [facility] XR CHEST FRONTAL ONLY [id number] XR CHEST FRONTAL ONLY 90700 Routine 12/26/2019 9:51 AM EDT 12/26/2019 09:51:[address] [facility] BLOOD COUNT COMPLETE AUTO&AUTO DIFRNTL WBC COUNT CBC AND DIFFER ENTIAL Routine 12/26/2019 9:17 AM EDT 12/26/2019 09:17:00 AM [facility] LACTATE LACTIC ACID LEVEL, PLASMA Routine 12/26/2019 9:17 AM EDT 12/26/2019 09:17:00 AM [facility] BASIC METABOLIC PANEL CALCIUM TOTAL BASIC METABOLIC PANEL Routi ne 12/26/2019 9:17 AM EDT 12/26/2019 09:17:[address] [facility] VASC LAB NON-INVAS PHYSIOLOGIC STD EXTREMITY ART 1-2 L EVEL VASC LAB NON-INVAS PHYSIOLOGIC STD EXTREMITY ART 1-2 LEVEL Routine 12/26/2019 7:25 AM EDT 12/26/2019 07:25:00 AM [facility] COVID-19 PCR COVID-19 PCR Routine 12/26/2019 2:23 AM EDT 12/26/2019 02:23:00 AM [facility] CULTURE BACTERIAL BLOOD AEROBIC W/ID ISOLATES BLOOD CULTURE R outine 12/26/2019 2:23 AM EDT 12/26/2019 02:23:[address] [facility] CULTURE BACTERIAL BLOOD AEROBIC W/ID ISOLATES BLOOD CULTURE R outine 12/26/2019 2:23 AM EDT 12/26/2019 02:23:[address] [facility] PROTHROMBIN TIME PROTIME INR Routine 12/26/2019 2:23 AM EDT 12/26/2019 02:23:00 AM [facility] BLOOD COUNT COMPLETE AUTO&AUTO DIFRNTL WBC COUNT CBC AND DIFFER ENTIAL Routine 12/26/2019 2:23 AM EDT 12/26/2019 02:23:00 AM [facility] PHOSPHORUS INORGANIC PHOSPHORUS LEVEL Routine 12/26/2019 2:23 AM E DT 12/26/2019 02:23:00 AM [facility] MAGNESIUM MAGNESIUM LEVEL Routine 12/26/2019 2:23 AM EDT 12/26/2019 02:23:00 AM [facility] HEPATIC FUNCTION PANEL HEPATIC FUNCTION PANEL A Routine 12/26/2019 2:23 AM EDT 12/26/2019 02:23:[address] [facility] BASIC METABOLIC PANEL CALCIUM TOTAL BASIC METABOLIC PANEL Routi ne 12/26/2019 2:23 AM EDT 12/26/2019 02:23:[address] [facility] RESPIRATORY PATHOGEN PANEL RESPIRATORY PATHOGEN PANEL Routine 12/26/2019 2:11 AM EDT 12/26/2019 02:11:[address] [facility] EKG 12-LEAD - CMAXX REPORT EKG 12-LEAD - CMAXX REPORT 12/26/2019 2:08 AM EDT 12/26/2019 02:08:[address] [facility] EKG 12-LEAD - CMAXX REPORT EKG 12-LEAD - CMAXX REPORT 12/26/2019 2:08 AM EDT 12/26/2019 02:08:[address] [facility] EKG 12-LEAD EKG 12-LEAD Routine 12/26/2019 2:08 AM EDT 12/26/2019 02:08:22 AM [facility] VASC LAB US DOPPLER LOWER EXTREMITY BILATERAL VENOUS C OMP 94544 VASC LAB US DOPPLER LOWER EXTREMITY BILATERAL VENOUS COMP 09372 Routine 1:47 AM EDT 12/26/2019 01:47:[address] [facility] Office Visit, Est Pt., Level 4 PC 07/01/2019 12:00:00 AM EDT eCW1 ([facility]) Office Visit, Est Pt., Level 2 FC 07/01/2019 12:00:00 AM EDT eCW1 ([facility]) TeleMedicine Est. Pt. Level 3 06/16/2019 12:00:00 AM E DT eCW1 ([facility]) Office Visit, Est Pt., Level 3 FC 05/20/2019 12:00:00 AM EDT eCW1 ([facility]) Office Visit, Est Pt., Level 2 PC 05/20/2019 12:00:00 AM EDT eCW1 ([facility]) Office Visit, New Pt., Level 3 FC 05/06/2019 12:00:00 AM EST eCW1 ([facility]) Office Visit, New Pt., Level 2 PC 05/06/2019 12:00:00 AM EST eCW1 ([facility]) Influenza immunization administered or previously received 05/06/2019 12:00:00 AM EST eCW1 ([facility]) TRANS CARE MGMT 14 DAY DISCH 05/06/2019 12:00:00 AM ES T eCW1 ([facility]) Transitional Care NO CHARGE Visit 04/28/2019 12:00:00 AM EST eCW1 ([facility]) Office Visit, Est Pt., Level 3 PC 03/23/2019 12:00:00 AM EST eCW1 ([facility]) Results ID Date Data Source [id number] 03/16/2020 09:44:32 PM EST [facility] Hospital Name Value Range Interpretation Code Description Data [place] rce(s) Supporting Document(s) Progress Note [facility] BXZWCh1eSnCTXqGd16/UXIhoSQCqf9NyKZheQEt4AGmmVZAnA9CuLEO4fX5eURE9GRhZMxDiDuSdVGS3 [facility] [file] suOmShuOfD5lKzhOObUDH+odSay46SuTQVN2tgY+[employer]visor XRvcOwEJgASBtNR8hPjtu4yzD9FV+jmuASQiaG0vUiKZdEkYQ9HXmRIILQrfJg2Yqhyf6SmH0lBWbjem l8qrDcutn6YoTV57M3pese31YYyE6cRKLRjnHqmEVy0o6xIiLoxJifWhRfpchjQw65caQYdFYBdYEqha NoktLeXgHrSDvwxUPBeEFZGuCL1ieI6nI+B8g/CBf7 AP2DXGISKnISN8w0AA2W7hqQ0YAz+1TjqwLfnQiBv29Bq90ETC14vZ+TQpstxj7Oo8rp3olIE3rEkKAO ittrEBhKRwYmx6mQEMmPghIxcsaShB7GkYpyDPE8PdihQ6APnJY5VMLk+q8tVHgaCEsJ/IadSI4n/4xJ NJTueiuj1yY5ug2XwDF5aVEoOvi7QKb60VdWRSPT8+ o4OJD1RabFGFNu8K57qJrCQln/wFA8fY8PLUQUc6x0QTb6V62dkxNO+FW135CDk9F0uyPfbingW1+NSs Cg46oiRqew0c14NqzX5DNVYwht61CmGy14oTENzuO+NMifHA1k6CE1IMZFkmUazji4xB8iJsrF7sKeWl AEAekvlNZOENK5caaQRbLUX0GuJqQuuC5Q3Q30gu/C b7Mx+hG7An0WBlkHwNuc++K+HygM1jz0+VbRR/ENJMunsXiSlo6CPrh+JKoNtn+KZgW7lDD6VM3EHjK9 vXa31+rtH2ua+bMETcVPF8DNcj3ujZbp0yiqsdbWk5ZKZfWDWD9wCAslagokz+PBZEtzAErlVyna9RCY EXSWBSUYTJGAhDFki+TGGHX4H6V9993yyJSTkOqUTP Gez8MJ6DErEeIDcuYB2NC/Ou+z3Sj1ld8812zcx71tM1PmeDLmnonC7c/BfE9+/h+JLmU4KYanwcDjnU VsEQ7TSsLoIQ3ilv7DBFTpNKBrYgoKIdSnFKaSDeJhHXHfVJuuIY7KXQghLJqeFBGaY2RtumHfxLFtMB OnLy2VHBUdKW6RFQIrrLWcNJAaDuNaSRRCTkYxQXAz LVVskNFMb1zdFbVmLTS6PZTgPrszFT4EFHVyHY1Xi117UA76gbKhQVBmVAYNYlDbWCZoA8KonMFoXFdm F3XdA4CaPV4tkUCzYF6krLXxL5RkU6VyouuhVIUAGjAjPFEzDAjaBUGfIeQmLKdnTRL+Vi4WQMI+Pg0K QG6as3ZhLFmiHcCcCV8api8HXDK9WD8LjJo3OFAdX7 UaXNPgAMTxb4FqLI1AAF2kgGqkIPo3JY5+TBoeGXJ4zhVppU3QTZXneTmoF9HDhQ+p4j/AV3pIrEpEPp VXbV0HAMlIhEWQqaAfemFLzuWsgvZlPDh1nYt2zUk0LpeoR0PtAkk8+n7r7tPo+sIIj3qyCWK7t104T5 t+8jGS8FfboWxnxHWu4lrwjjB6l8C9Pfa9EQ6C5VvQ nbXZbLh/LM429szBr+opyqWx4mfq42ImfDfuJW3yoxEs9teL//VmPByNz1+/umkhP2LsNWoHAxM3+TON E027thM726TacQsUFkqIikb9A/d1P+x0jzeIe9FAa9GQX1tvAJ74oqrzk2UyfNafQFU/zj88f+4Gf7it gXu/9H6f5G1kl23EM92zlAKmuGwyJV5DVDxjogrorv 8KDe4dxGXUpdu+vIp8DyS+Mn9dfHxezYl6387dIO8YUlBoPUn3WysqGikTVpjYEB6sF8AzXQR/I1iRLu 7W3EadEJrhz62RvZ9FQCp16z6e8RLIId72aE2BCNRzIKefoduYbmfq0oniWq9Qkq3NIn/EwSUkN/lFbv JKILWvNjlzUZBFMZHQm5gJCYxmryhUNPYu5FsTDmBB [file] ICAgICAgICAgICAgICAgICAgICAgICAgICAgICAgICAgICAgICAgICAgICAgICAgICAgICAgICAgICAg ICAgICAgICAgICAgICAgICAgDQogICAgICAgICAgIC AgICAgICAgICAgICAgICAgICAgICAgICAgICAgICAgICAgICAgICAgICAgICAgICAgICAgICAgICAgIC AgICAgICAgICAgICAgICAgICAgICAgICAgICAgDQogICAgICAgICAgICAgICAgICAgICAgICAgICAgIC AgICAgICAgICAgICAgICAgICAgICAgICAgICAgICAg ICAgICAgICAgICAgICAgICAgICAgICAgICAgICAgICAgICAgICAgDQogICAgICAgICAgICAgICAgICAg ICAgICAgICAgICAgICAgICAgICAgICAgICAgICAgICAgICAgICAgICAgICAgICAgICAgICAgICAgICAg ICAgICAgICAgICAgICAgICAgICAgDQogICAgICAgIC AgICAgICAgICAgICAgICAgICAgICAgICAgICAgICAgICAgICAgICAgICAgICAgICAgICAgICAgICAgIC AgICAgICAgICAgICAgICAgICAgICAgICAgICAgICAgDQogICAgICAgICAgICAgICAgICAgICAgICAgIC AgICAgICAgICAgICAgICAgICAgICAgICAgICAgICAg ICAgICAgICAgICAgICAgICAgICAgICAgICAgICAgICAgICAgICAgICAgDQogICAgICAgICAgICAgICAg ICAgICAgICAgICAgICAgICAgICAgICAgICAgICAgICAgICAgICAgICAgICAgICAgICAgICAgICAgICAg ICAgICAgICAgICAgICAgICAgICAgICAgDQogICAgIC AgICAgICAgICAgICAgICAgICAgICAgICAgICAgICAgICAgICAgICAgICAgICAgICAgICAgICAgICAgIC AgICAgICAgICAgICAgICAgICAgICAgICAgICAgICAgICAgDQogICAgICAgICAgICAgICAgICAgICAgIC AgICAgICAgICAgICAgICAgICAgICAgICAgICAgICAg ICAgICAgICAgICAgICAgICAgICAgICAgICAgICAgICAgICAgICAgICAgICAgDQogICAgICAgICAgICAg ICAgICAgICAgICAgICAgICAgICAgICAgICAgICAgICAgICAgICAgICAgICAgICAgICAgICAgICAgICAg NOLkEUVqUQAdTRUwWPSdYTDoWWHfOOLcFXBwSHr6B7 cjOGNrHUEnQT5bMKc4Ad5+JEnHZuFzGTZ8otKvoI6MGM3hl5XbXGssQASti0TdEXj1XX9CXJBvILnhTC 3ZMCwroe7NTRCgFONhuIMRp9vxGiNyGMO5ORQbTakqCW4OEGSjS8nubkZiMYNqIJLGFIkvHYMWTIjcWR QVEJCmQCTaWpRwOzCdWMGhCN9WEAAsN351hpAdDQ1X Kh6MXmHlII2hho0BRbzeRNPpLdeYIfn4LTbmYU5PrBWlzIHmYIGrAWQEHcGeF1qou3OcGdmuXMWVCAno FE6Rk2KumHSnBWm+Gv6IYK8lg6EeAGvgZYGuVE7efh3WCLgWQvYeT6RrcIhoPAVls9ugHMIuEH1vlBDi OKG6YJofkxKwVGZsbFmpFdMIENFCVPPjsUMnAd2cVa 4nEJNtOJDoQqT9BEXOAP8AOEKdZMKcrYDaVFJsNTBSNU9HRBhyERQ7XVWzsoBfcQMdCXulRS0RMSEuvf QgMjcgMCBSDQo+Wx6RSV5vq3CqVNqxPZVaHR1pgm0OVXhTFfAfD2V4wJMsO6M7YBknEk7MCWUuONIpXs DkQODAPQpgXV8KRS9whdZ9TO1ZuIWuQPYcMGWqqXPe CCw8W93usVEnCUhqDW3PLPM+Scarlett+Bf6ULDWyFAXbNACuAiCcSNBAOdEcU4GmY1VPp9BxE5KvPG55aMar rhNdCFboBS8ERQ5zXKXyFQWINY1CrDXrfM1vnvZvWtHvRCQXOzHfA71keBLiDBFqOHV3RFWyGp9ZPDDt P3SztdJqoPkxwkHcEPHrRAZYPB0GVEqmdeYegKRbfO ewAH48sXgiDI2TPu2IAsRhBY3log8TkUJnNs2MWHMwML3ITDNcSTPtQXSdJWS6KMPjUmGtGQoaSHYzTW BxRMB5RLBsDKHxGN0OEaDxNOFaMFJ3GFraBISbICAjwz9YXFLnOMT5DPVjCsBpZLRuYYLsTIgoZLEfUQ VbLPK2FZEdHXCbYA0TJyCtBVUzDNF9BvOeQILbTKZk ao3VUMDoITJcIsguYSEuRNFcHVVoHCbkGVApXPK3MSfaNJBePWFsAA7LDoQmBRNvLUa8YEWcAEVhGYEt aa1NAKZoTDLrSMR8BRHjYIYfBWWaPYwdBPCbWSQaJbE6ZDOsWKWlXO7EFzQuOJUnRAQfEpOeNTFzHHIl hx1OEOPkXMCySMF9ODRmZTDfZZLbSDmyAZPuUPI3Or BxDBMvTYNsXQ6DPoJpUMOnZMA0AJybTAGzLZVuic1BNPIzOZQtBsS7UEHfEGCpMUCgJWokZRAwYZH6Mv i6FXIvZTHqQV0BCmPuTKEgLNr1CWyrCJUwXJEyyi5VQTPeHCGlGOewJiTiZKKnEGClNWacIONcVNU1WI Q9WUBnZKTnAB4VPmWqKXCvAXgsUSfvDQPkSUGuao9M EUEpHHA3AOp5UPXqLHDrSLEvSKgySONiNGDaXjb5DDAwWBKvEO4EMyCsFHDnGWU1WHvnINQsZYDbsq9K PRDmFHP4QkX6QPHfHBIdVKCkFHudSTUrTOHiKZj1LRKlPBUjLU5KIdVgFJRlBDW3SOhcMCDvLBPfsz7U QUGcSEX1KER4QGIrZOQuASPoUAmpHJZmKFT4VXHoQH EqWBTfHS7GYwKbBRVkNZE3QDFdVVOgDZRefk1TlNWuuHnogd1QEXuQGr6YeTfuLXEnQDjnOs6fyGHtOU VzGAHRNm7OwfEpYWFqSSKSZHqgYVDnVHB6UfKaJqK8TMCoOrT8NBRrKNIfMCMyYVGvNXAnDIPiWfT8Yr ZwDBW9HVc4ZsXsZyi8JFS3HPP2MxH1BrS9YPB7PxD+ FR7kWAj+Rw1Pw8VthkU7wnWiSVu5BLwcYd2YCERYM8BAIb== ID Date Data Source [id number] 03/14/2020 12:05:00 PM [facility] Name Value Range Interpretation Code Description Data [place] rce(s) Supporting Document(s) SARS coronavirus 2 RNA Not Detected [facility] by [facility]. ID Date Data Source [id number] 03/17/2020 08:53:00 AM EST [facility] Name Value Range Interpretation Code Description Data [place] rce(s) Supporting Document(s) SARS-CoV-2, [place] Not Detected Not Detected [facility] This nucleic acid amplification test was developed and its performancecharacteristics determined by [employer]. Nucleic acidamplification tests include PCR and TMA. This test has not been FDAcleared or approved. This test has been authorized by FDA under anEmergency Use Authorization (EUA). This test is only authorized forthe duration of time the declaration that circumstances existjustifying the authorization of the emergency use of in vitrodiagnostic tests for detection of SARS-CoV-2 virus and/or diagnosisof COVID-19 infection under section 564(b)(1) of the Act, 21 U.S.C.360bbb-3(b) (1), unless the authorization is terminated or revokedsooner.When diagnostic testing is negative, the possibility of a falsenegative result should be considered in the context of a patient'srecent exposures and the presence of clinical signs and symptomsconsistent with COVID- 19. An individual without symptoms of COVID-19and who is not shedding SARS-CoV-2 virus would expect to have anegative (not detected) result in this assay. ORDER COVID 19 2 DAY YES [facility] ID Date Data Source [id number] 03/10/2020 10:00:00 AM [facility] Name Value Range Interpretation Code Description Data [place] rce(s) Supporting Document(s) SARS coronavirus 2 RNA [facility] reported by [facility]. ID Date Data Source [id number] 03/11/2020 03:12:00 PM EST [facility] Name Value Range Interpretation Code Description Data [place] rce(s) Supporting Document(s) SARS-CoV-2, [place] Not Detected Not Detected [facility] This nucleic acid amplification test was developed and its performancecharacteristics determined by [facility]. Nucleic acidamplification tests include PCR and TMA. This test has not been FDAcleared or approved. This test has been authorized by FDA under anEmergency Use Authorization (EUA). This test is only authorized forthe duration of time the declaration that circumstances existjustifying the authorization of the emergency use of in vitrodiagnostic tests for detection of SARS-CoV-2 virus and/or diagnosisof COVID-19 infection under section 564(b)(1) of the Act, 21 U.S.C.360bbb-3(b) (1), unless the authorization is terminated or revokedsooner.When diagnostic testing is negative, the possibility of a falsenegative result should be considered in the context of a patient'srecent exposures and the presence of clinical signs and symptomsconsistent with COVID- 19. An individual without symptoms of COVID-19and who is not shedding SARS-CoV-2 virus would expect to have anegative (not detected) result in this assay. ID Date Data Source [id number] 03/07/2020 10:50:00 AM [facility] Name Value Range Interpretation Code Description Data [place] rce(s) Supporting Document(s) SARS coronavirus 2 RNA [facility] reported by [facility]. ID Date Data Source [id number] 03/10/2020 10:54:00 PM EST [facility] Name Value Range Interpretation Code Description Data [place] rce(s) Supporting Document(s) SARS-CoV-2, [place] Not Detected Not Detected [facility] This nucleic acid amplification test was developed and its performancecharacteristics determined by [facility]. Nucleic acidamplification tests include PCR and TMA. This test has not been FDAcleared or approved. This test has been authorized by FDA under anEmergency Use Authorization (EUA). This test is only authorized forthe duration of time the declaration that circumstances existjustifying the authorization of the emergency use of in vitrodiagnostic tests for detection of SARS-CoV-2 virus and/or diagnosisof COVID-19 infection under section 564(b)(1) of the Act, 21 U.S.C.360bbb-3(b) (1), unless the authorization is terminated or revokedsooner.When diagnostic testing is negative, the possibility of a falsenegative result should be considered in the context of a patient'srecent exposures and the presence of clinical signs and symptomsconsistent with COVID- 19. An individual without symptoms of COVID-19and who is not shedding SARS-CoV-2 virus would expect to have anegative (not detected) result in this assay. ID Date Data Source [id number] 03/03/2020 01:50:00 PM EST [facility] Name Value Range Interpretation Code Description Data [facility] rce(s) Supporting Document(s) SARS coronavirus 2 RNA [facility] This lab was ordered by [facility] and reported by [facility]. ID Date Data Source [id number] 03/05/2020 04:10:00 PM [facility] Name Value Range Interpretation Code Description Data [place] rce(s) Supporting Document(s) SARS-CoV-2, [place] Not Detected Not Detected [facility] This nucleic acid amplification test was developed and its performancecharacteristics determined by [employer]. Nucleic acidamplification tests include PCR and TMA. This test has not been FDAcleared or approved. This test has been authorized by FDA under anEmergency Use Authorization (EUA). This test is only authorized forthe duration of time the declaration that circumstances existjustifying the authorization of the emergency use of in vitrodiagnostic tests for detection of SARS-CoV-2 virus and/or diagnosisof COVID-19 infection under section 564(b)(1) of the Act, 21 U.S.C.360bbb-3(b) (1), unless the authorization is terminated or revokedsooner.When diagnostic testing is negative, the possibility of a falsenegative result should be considered in the context of a patient'srecent exposures and the presence of clinical signs and symptomsconsistent with COVID- 19. An individual without symptoms of COVID-19and who is not shedding SARS-CoV-2 virus would expect to have anegative (not detected) result in this assay. ID Date Data Source [id number] 03/03/2020 09:10:00 AM [facility] Name Value Range Interpretation Code Description Data [place] rce(s) Supporting Document(s) CVE PANEL [facility] al LIPID PANEL Cholesterol [Mass/volume] in Serum or Plasma 105 MG/DL 131 - 200 L [facility] Deprecated Triglyceride [Mass/volume] in Serum or Plasma 80 MG/DL 3 5 - 160 [facility] HDL 47 MG/DL 29 - [address] [facility] Cholesterol in LDL [Mass/volume] in Serum or Plasma by Direc t assay 40 mg/dL 65 - 175 L [facility] Cholesterol.total/Cholesterol in HDL [Mass Ratio] in Serum o r Plasma 2.2 3.2 - 4.4 L [facility] LDL/HDL 0.85 1.47 - 3.22 L [facility] ital CVE RISK CHOL/HDL LDL/HDLMEN: 1/2 AVERAGE 3.43 1.00 AVERAGE 4.97 3.55 2X AVERAGE 9.55 6.25 3X AVERAGE 23.99 7.99WOMEN: 1/2 AVERAGE 3.27 1.47 AVERAGE 4.44 3.22 2X AVERAGE 7.05 5.03 3X AVERAGE 11.04 6.14 ID Date Data Source [id number] 03/03/2020 09:09:00 AM [facility] Name Value Range Interpretation Code Description Data [place] rce(s) Supporting Document(s) COMPREHENSIVE METABOLIC PANEL [facility] COMPREHENSIVE METABOLIC PANEL Sodium [Moles/volume] in Serum or Plasma 141 mEq/L 134 - 153 [facility] Potassium [Moles/volume] in Serum or Plasma 4.2 mEq/L 3.6 - 5.0 [facility] Chloride [Moles/volume] in Serum or Plasma 104 mEq/L 98 - 107 [facility] Carbon dioxide, total [Moles/volume] in Serum or Plasma 30 MEQ/L 22 - 30 [facility] Glucose [Mass/volume] in Serum or Plasma 82 MG/DL 65 - 110 [facility] BUN 7 MG/DL 7 - 21 [facility] Creatinine [Mass/volume] in Serum or Plasma 0.5 MG/DL 0.7 - 1.5 L [facility] BUN/CREAT 14 8 - [address] [facility] al Protein [Mass/volume] in Serum or Plasma 6.1 G/DL 6.3 - 8.2 L [facility] Albumin [Mass/volume] in Serum or Plasma 3.8 G/DL 3.9 - 5.0 L [facility] Globulin [Mass/volume] in Serum by calculation 2.3 GM/DL 2.4 - 3.2 L [facility] A/G RATIO 1.7 0.8 - 2.0 [facility] Calcium [Mass/volume] in Serum or Plasma 9.8 MG/DL 8.4 - 10.2 [facility] Bilirubin.total [Mass/volume] in Serum or Plasma <0.7 MG/DL 0.2 - 1.3 [facility] Alkaline phosphatase [Enzymatic activity/volume] in Serum or Plasma 58 U/L 38 - 126 [facility] Aspartate aminotransferase [Enzymatic activity/volume] in Serum or Plasma 13 U/L 5 - 40 [facility] Alanine aminotransferase [Enzymatic activity/volume] in Seru m or Plasma <5 U/L 7 - 56 L [facility] Anion gap 3 in Serum or Plasma 7.0 mmol/L 8.0 - 16.0 L [facility] AGE [address] [facility] al NON-AA GFR >60 mL/min [facility] ital AFR AMER GFR >60 [facility] Male GFR In terprentation 20-49 yrs >60 mL/min Normal 50-59 yrs >56 mL/min Normal 60-69 yrs >49 mL/min Normal 70-79yrs >42 mL/min Normal 80 and above >35 mL/min Normal Female GFR Interpretation 20-39 yrs >60 mL/min Normal 40-49 yrs >58 mL/min Normal 50-59 yrs >51 mL/min Normal 60-69 yrs >45 mL/min Normal 70-79 yrs >39 mL/min Normal 80 and above >32 mL/min Normal ID Date Data Source [id number] 03/03/2020 08:34:00 AM EST [facility] Name Value Range Interpretation Code Description Data [place] rce(s) Supporting Document(s) CBC W/AUTOMATED DIFF [facility] COMPLETE BLOOD COUNT Leukocytes [#/volume] in Blood by Automated count 5.0 10^3/uL 4.2 - 1 1.0 [facility] Erythrocytes [#/volume] in Blood by Automated count 4.65 10^6/uL 4. 20 - 5.40 [facility] Hemoglobin [Mass/volume] in Blood 13.8 g/dL 12.0 - 16.0 [facility] Hematocrit [Volume Fraction] of Blood by Automated count 42.2 % 3 7.0 - 47.0 [facility] Erythrocyte mean corpuscular volume [Entitic volume] by Auto mated count 90.8 fL 81.0 - 101 [facility] Erythrocyte mean corpuscular hemoglobin [Entitic mass] by Automated count 29.7 pg 27.0 - 34.0 [facility] Erythrocyte mean corpuscular hemoglobin concentration [Mass/volume] by Automated count 32.7 g/dL 31.0 - 36.0 [facility] Erythrocyte distribution width [Ratio] by Automated count 13.1 % 11.5 - 14.5 [facility] Platelets [#/volume] in Blood by Automated count 369 10^3/uL 150 - 45 0 [facility] Platelet mean volume [Entitic volume] in Blood by Automated count 11.7 fL 7.4 - 10.4 H [facility] Neutrophils/100 leukocytes in Blood by Automated count 60.9 % 37. 0 - 80.0 [facility] Lymphocytes/100 leukocytes in Blood by Manual count 26.2 % 25.0 - 40.0 [facility] Monocytes/100 leukocytes in Blood by Automated count 9.1 % 3.0 - 8.0 H [facility] Eosinophils/100 leukocytes in Blood by Automated count 2.6 % 0.0 - 7.0 [facility] Basophils/100 leukocytes in Blood by Automated count 1.0 % 0.0 - 2.5 [facility] %IG 0.2 % 0.0 - 0.0 [facility] 0.0 % 0.0 - 0.[address] [facility] Neutrophils [#/volume] in Blood by Automated count 3.02 10^3/uL 2.00 - 6.90 [facility] Lymphocytes [#/volume] in Blood by Automated count 1.30 10^3/uL 0.60 - 3.40 [facility] Monocytes [#/volume] in Blood by Automated count 0.45 10^3/uL 0.00 - 0.90 [facility] Eosinophils [#/volume] in Blood by Automated count 0.13 10^3/uL 0.00 - 0.70 [facility] Basophils [#/volume] in Blood by Automated count 0.05 10^3/uL 0.00 - 0.20 [facility] #IG 0.01 10^3/uL 0.00 - 0.10 [facility] #NRBC 0.00 10^3/uL 0.00 - 0.00 [facility] MANUAL DIFF NOT INDICATED [facility] RBC MORPH NOT INDICATED [facility] ID Date Data Source [id number] 02/02/2020 10:15:00 AM [facility] Name Value Range Interpretation Code Description Data [place] rce(s) Supporting Document(s) Ferritin [Mass/volume] in Serum or Plasma 299.5 ng/mL 3.0 - 105 H [facility] ID Date Data Source [id number] 02/02/2020 10:01:00 AM [facility] Name Value Range Interpretation Code Description Data [place] rce(s) Supporting Document(s) Thyroxine (T4) free index in Serum or Plasma by calculation 1.28 NG/DL 0.93 - 1.70 [facility] ID Date Data Source [id number] 02/02/2020 10:01:00 AM [facility] Name Value Range Interpretation Code Description Data [place] rce(s) Supporting Document(s) Thyrotropin [Units/volume] in Serum or Plasma by Detec tion limit <= 0.05 mIU/L 3.31 uIU/mL 0.47 - 5.01 [facility] ID Date Data Source [id number] 02/02/2020 09:42:00 AM [facility] Name Value Range Interpretation Code Description Data [place] rce(s) Supporting Document(s) CVE PANEL [facility] al LIPID PANEL Cholesterol [Mass/volume] in Serum or Plasma 110 MG/DL 131 - 200 L [facility] Deprecated Triglyceride [Mass/volume] in Serum or Plasma 99 MG/DL 3 5 - 160 [facility] HDL 43 MG/DL 29 - [address] [facility] Cholesterol in LDL [Mass/volume] in Serum or Plasma by Direc t assay 53 mg/dL 65 - 175 L [facility] Cholesterol.total/Cholesterol in HDL [Mass Ratio] in Serum o r Plasma 2.6 3.2 - 4.4 L [facility] LDL/HDL 1.23 1.47 - 3.22 L [facility] ital CVE RISK CHOL/HDL LDL/HDLMEN: 1/2 AVERAGE 3.43 1.00 AVERAGE 4.97 3.55 2X AVERAGE 9.55 6.25 3X AVERAGE 23.99 7.99WOMEN: 1/2 AVERAGE 3.27 1.47 AVERAGE 4.44 3.22 2X AVERAGE 7.05 5.03 3X AVERAGE 11.04 6.14 ID Date Data Source [id number] 02/02/2020 09:42:00 AM [facility] Name Value Range Interpretation Code Description Data [place] rce(s) Supporting Document(s) Iron [Mass/volume] in Serum or Plasma 51 UG/DL 42 - 135 [facility] Iron binding capacity.unsaturated [Mass/volume] in Serum or Plasma 162 UG/DL 112 - 347 [facility] Iron binding capacity [Mass/volume] in Serum or Plasma 213 ug/dL 250 - 450 L [facility] Iron saturation [Mass Fraction] in Serum or Plasma 24 % [facility] ID Date Data Source [id number] 02/02/2020 09:41:00 AM EST [facility] Name Value Range Interpretation Code Description Data [place] rce(s) Supporting Document(s) COMPREHENSIVE METABOLIC PANEL [facility] COMPREHENSIVE METABOLIC PANEL Sodium [Moles/volume] in Serum or Plasma 139 mEq/L 134 - 153 [facility] Potassium [Moles/volume] in Serum or Plasma 4.3 mEq/L 3.6 - 5.0 [facility] Chloride [Moles/volume] in Serum or Plasma 103 mEq/L 98 - 107 [facility] Carbon dioxide, total [Moles/volume] in Serum or Plasma 28 MEQ/L 22 - 30 [facility] Glucose [Mass/volume] in Serum or Plasma 85 MG/DL 65 - 110 [facility] BUN 9 MG/DL 7 - [address] [facility] Creatinine [Mass/volume] in Serum or Plasma 0.5 MG/DL 0.7 - 1.5 L [facility] BUN/CREAT 18 8 - 27 [facility] Protein [Mass/volume] in Serum or Plasma 6.0 G/DL 6.3 - 8.2 L [facility] Albumin [Mass/volume] in Serum or Plasma 3.5 G/DL 3.9 - 5.0 L [facility] Globulin [Mass/volume] in Serum by calculation 2.5 GM/DL 2.4 - 3.2 [facility] A/G RATIO 1.4 0.8 - 2.0 [facility] Calcium [Mass/volume] in Serum or Plasma 9.6 MG/DL 8.4 - 10.2 [facility] Bilirubin.total [Mass/volume] in Serum or Plasma <0.7 MG/DL 0.2 - 1.3 [facility] Alkaline phosphatase [Enzymatic activity/volume] in Serum or Plasma 63 U/L 38 - 126 [facility] Aspartate aminotransferase [Enzymatic activity/volume] in Serum or Plasma 19 U/L 5 - 40 [facility] Alanine aminotransferase [Enzymatic activity/volume] in Seru m or Plasma 6 U/L 7 - 56 L [facility] Anion gap 3 in Serum or Plasma 8.0 mmol/L 8.0 - 16.0 [facility] AGE [address] [facility] al NON-AA GFR >60 mL/min [facility] ital AFR AMER GFR >60 [facility] Male GFR In terprentation 20-49 yrs >60 mL/min Normal 50-59 yrs >56 mL/min Normal 60-69 yrs >49 mL/min Normal 70-79yrs >42 mL/min Normal 80 and above >35 mL/min Normal Female GFR Interpretation 20-39 yrs >60 mL/min Normal 40-49 yrs >58 mL/min Normal 50-59 yrs >51 mL/min Normal 60-69 yrs >45 mL/min Normal 70-79 yrs >39 mL/min Normal 80 and above >32 mL/min Normal ID Date Data Source [id number] 02/02/2020 09:40:00 AM [facility] Name Value Range Interpretation Code Description Data [place] rce(s) Supporting Document(s) Magnesium [Mass/volume] in Serum or Plasma 2.0 MG/DL 1.7 - 2.2 [facility] ID Date Data Source [id number] 02/02/2020 09:26:00 AM [facility] Name Value Range Interpretation Code Description Data [place] rce(s) Supporting Document(s) CBC NO DIFF [facility] COMPLETE BLOOD COUNT Leukocytes [#/volume] in Blood by Automated count 5.9 10^3/uL 4.2 - 1 1.0 [facility] Erythrocytes [#/volume] in Blood by Automated count 4.22 10^6/uL 4. 20 - 5.40 [facility] Hemoglobin [Mass/volume] in Blood 12.7 g/dL 12.0 - 16.0 [facility] Hematocrit [Volume Fraction] of Blood by Automated count 38.9 % 3 7.0 - 47.0 [facility] Erythrocyte mean corpuscular volume [Entitic volume] by Auto mated count 92.2 fL 81.0 - 101 [facility] Erythrocyte mean corpuscular hemoglobin [Entitic mass] by Automated count 30.1 pg 27.0 - 34.0 [facility] Erythrocyte mean corpuscular hemoglobin concentration [Mass/volume] by Automated count 32.6 g/dL 31.0 - 36.0 [facility] Erythrocyte distribution width [Ratio] by Automated count 14.4 % 11.5 - 14.5 [facility] Platelets [#/volume] in Blood by Automated count 342 10^3/uL 150 - 45 0 [facility] Platelet mean volume [Entitic volume] in Blood by Automated count 11.3 fL 7.4 - 10.4 H [facility] ID Date Data Source [id number] 01/10/2020 02:59:42 PM [facility] Name Value Range Interpretation Code Description Data [place] rce(s) Supporting Document(s) Discharge Summary [facility] FETOYx0yYeLYAwBs18/AMWytHNShu3ZaPFzsFGh6TPstDJKbK0QeTNJ3eP8bKMM9AUtPRiRqVvZhDHDw lbm [file] ICAgICAgICAgICAgICAgICAgICAgICAgICAgICAgIC AgICAgICAgICAgICAgICAgICAgICAgICAgICAgICAgICAgICAgICAgICAgICANCiAgICAgICAgICAgIC AgICAgICAgICAgICAgICAgICAgICAgICAgICAgICAgICAgICAgICAgICAgICAgICAgICAgICAgICAgIC AgICAgICAgICAgICAgICAgICAgICAgICAgICANCiAg ICAgICAgICAgICAgICAgICAgICAgICAgICAgICAgICAgICAgICAgICAgICAgICAgICAgICAgICAgICAg ICAgICAgICAgICAgICAgICAgICAgICAgICAgICAgICAgICAgICANCiAgICAgICAgICAgICAgICAgICAg ICAgICAgICAgICAgICAgICAgICAgICAgICAgICAgIC AgICAgICAgICAgICAgICAgICAgICAgICAgICAgICAgICAgICAgICAgICAgICAgICANCiAgICAgICAgIC AgICAgICAgICAgICAgICAgICAgICAgICAgICAgICAgICAgICAgICAgICAgICAgICAgICAgICAgICAgIC AgICAgICAgICAgICAgICAgICAgICAgICAgICAgICAN CiAgICAgICAgICAgICAgICAgICAgICAgICAgICAgICAgICAgICAgICAgICAgICAgICAgICAgICAgICAg ICAgICAgICAgICAgICAgICAgICAgICAgICAgICAgICAgICAgICAgICANCiAgICAgICAgICAgICAgICAg ICAgICAgICAgICAgICAgICAgICAgICAgICAgICAgIC AgICAgICAgICAgICAgICAgICAgICAgICAgICAgICAgICAgICAgICAgICAgICAgICAgICANCiAgICAgIC AgICAgICAgICAgICAgICAgICAgICAgICAgICAgICAgICAgICAgICAgICAgICAgICAgICAgICAgICAgIC AgICAgICAgICAgICAgICAgICAgICAgICAgICAgICAg ICANCiAgICAgICAgICAgICAgICAgICAgICAgICAgICAgICAgICAgICAgICAgICAgICAgICAgICAgICAg ICAgICAgICAgICAgICAgICAgICAgICAgICAgICAgICAgICAgICAgICAgICANCiAgICAgICAgICAgICAg ICAgICAgICAgICAgICAgICAgICAgICAgICAgICAgIC AgICAgICAgICAgICAgICAgICAgICAgICAgICAgICAgICAgICAgICAgICAgICAgICAgICAgICANCjw/eH VrE1gvvJUbgrU7H8zhQa9VTj4JYW2ou2ByYGTuAOtezoDqXsmHWsUrMSCaXaiALjm1BHbkZU0InLEyK1 GlG4EmYEtpQW2GFADaVFWezUQwNLSgSQYvLnC3NDDj RObjFK4ArAYiHMgzNIVnICGqScBtEVNrSPPdWRIsPAZrDEUGRZTaYXYsNaKyVAwxGH1Ql1QmfSF8YLq+ Sb2AHT7hv0LxBAoeEEWuSW6qgw7DFWaDOtUnU6TygkD3ABVuCSSiCs6BFRVeDEXrlGLsNbEoODDSYwGv Z3GoqW90CIIFEd3+MNjgizLmDmvSDiGyUURjr5EdYI b4AV1GSJBuCYd4pQVqVNuiL0vodqbrKVX9vX9iitqjAuxcL7ThUN7eOFXnVBKlMP3FJUJ2FICqRjMzOa ZkEeGnBVS1YXFfWF0wCSgfBB8COJV0YAzcPNHvQPMkM0tTKlNeEIZqFkUdsFpuQP3IBeJzA6MafrNuxR AzMSAwIFINCj4+FZsdlkDaKsbHEpMjXSUsz8XtSFk4 SD4EETMiGAlvQT1VTTLznC6uEZstIR0FUxAlEOHoEWODWvSzD43znAOhXCc7Y7ZpUlGzMVJeYngiGZMx PDwvTmFtZXMgWyBdDQogID4+ID4+AMwxDZ1HIQlycdIsCLFtJu8AODXkIRQqYG5aRTUxVLXnG5G0yXqu YLHNLnPjQ1wjqhbnCX5yEIFxI137eBoydcDrNKMfFI YpGj3YQUCqKMM3QBQrlFPoHzMmFMVNTCkjJN3NwSKhRRU7iE1tYQfdOKTeTNWlG3tXOrRehPkmAR03yN wgbnVsbCBdDQo+Xf7XBP2ej3XpBLo3toNpYOodHSW0ISgqVWImRNTdAUQpBRF3OOX5HEITBsInEPGtGE HkJCnaPIQrDQAjyk6KMTEtWTLgAmL2AOMxVSHyPTCl WQrdZFWoLIR3HNUpZEFtRAUjOA7PZnZyCNAnIPCdEEsqYMVrSZJugy1ANQOyUTWwXeJ9JqCuKTPpKZBk CIybILMuZWZzICP7BBWgEHXkRH5BXlBhDJCzUSO2WjAaFTRaLVNiox1HNNAbGKDjHgB7SiKoYDEgORMb GGzwQYNsPUMtWYQ4FRAhDJGyRB0LDgQeMUPfOWJ7EK vbSLFdLHEioh2IGDTuADWbUcE5JHHhJYXlEVVtOHmwWDBwEJC9InTtYNGkJTIyCI7LBbGxADVrHYgxJV UrKFCxOJBjha8UFDRtJXAhDGF4KzGxKBYoDJVqWMchXJEkPJJgAdXpRUWjUXMzTA2UYhZsPXMkNgN3QC roUMYvCDCmse5BMZPiVMTuIAOkIgGkSIIvJCPbJSzd MEVwMLKvYHpsDFJjIKSsHS0WWyRaCBJvIuD6IYSdFTUvHQIryo9WAUInZFOjEAg9PGBnRGTkYNFmQMoq ADNmFFOrWZTwZLEeZXYaNA6FLzKgJPExKmKtQBEuPXGmNCUayz0GVVRmFPEiLmZfMGPePAOaCALmROtc NEFdTTD0KbmpYNVtZGBzRO3BJoDiCZVjUrG5XBfwQV XvZVEzkm9CKQRhABHpVCW8ORJhEQCeHDBxAHpmFVOwWRD3PbWmGIFhVPCdAB6KQdJzSBCtRjL0UwEkFT MkDVMdtu4TKRIsZHIrMeKxPLIuJUKfBVYoBEhlYZQdPQT0QJsaYZMgWLGyZK9BZhDsVONcAun0ETukUN BaNMMztw1OSKRrFLXvZOJeVEGaDRNfPUKlESnxJTQz SQG9ZCD3EEWiNOZtGW6XWpRuHWxdWAYBNnn4ORktG6k6SPDvKA0KS9Eqi3SwFuNgNVRTJWszIH3ndpQy ZKIrTe9ZX9kUYxccPIKtJhI7TrixRQE8DCIiK3K1PPY8XOQ2TbZoVvDuRG1sGSSePyZ2Ujx7ZWIkChV4 BjLsFre9RAC8PtcbVlPfZOJ5XaYpAT9CQl8ZWqR6BBB8lYNuNh1JPsu9AAXHMlCtDJ8KKYz= ID Date Data Source [id number] 01/09/2020 03:59:[facility] Range Interpretation Code Description Data [place] rce(s) Supporting Document(s) Glucose [Mass/volume] in Capillary blood by Glucometer 141 mg/dL 70- 140 [facility] ID Date Data Source [id number] 01/09/2020 08:51:25 AM [facility] Value Range Interpretation Code Description Data [place] rce(s) Supporting Document(s) Glucose [Mass/volume] in Capillary blood by Glucometer 141 mg/dL 70- 140 [facility] ID Date Data Source [id number] 01/09/2020 06:26:06 AM [facility] Value Range Interpretation Code Description Data [place] rce(s) Supporting Document(s) Bicarbonate [Moles/volume] in Serum 25 mmol/L 22-29 [facility] Chloride [Moles/volume] in Serum or Plasma 104 mmol/L 98-107 [facility] Creatinine [Mass/volume] in Serum or Plasma 0.52 mg/dL 0.50-0.90 [facility] Glucose [Mass/volume] in Serum or Plasma 130 mg/dL 70-140 [facility] Potassium [Moles/volume] in Serum or Plasma 4.4 mmol/L 3.4-5.1 [facility] Sodium [Moles/volume] in Serum or Plasma 138 mmol/L 136-145 [facility] Urea nitrogen [Mass/volume] in Serum or Plasma 17 mg/dL 8-23 [facility] Anion gap 3 in Serum or Plasma 9 mmol/L 8-15 [facility] Osmolality of Serum or Plasma by calculation 289 mosm/kg 275-300 [facility] Creatinine/Urea nitrogen [Mass Ratio] in Serum or Plasma 33 [facility] Calcium [Mass/volume] in Serum or Plasma 8.7 mg/dL 8.8-10.2 L [facility] Glomerular filtration rate/1.73 sq M pre dicted among non-blacks [Volume Rate/Area] in Serum or Plasma by Creatinine-based formula (MDRD) >6 0 [facility] Glomerular filtration rate/1.73 sq M pre dicted among blacks [Volume Rate/Area] in Serum or Plasma by Creatinine-based formula (MDRD) >60 [facility] ID Date Data Source [id number] 01/09/2020 01:37:01 AM EDT [facility] Hospital Name Value Range Interpretation Code Description Data [place] rce(s) Supporting Document(s) Leukocytes [#/volume] in Blood by Automated count 10.2 10*3/uL 4-10 [facility] Erythrocytes [#/volume] in Blood by Automated count 3.65 10*6/uL 4.1- 5.3 L [facility] Hemoglobin [Mass/volume] in Blood 10.9 g/dL 11.5-15.5 [facility] Hematocrit [Volume Fraction] of Blood by Automated count 33.3 % 3 6-45 [facility] Erythrocyte mean corpuscular volume [Entitic volume] by Auto mated count 91.3 fL 80-96 [facility] Erythrocyte mean corpuscular hemoglobin [Entitic mass] by Automated count 29.8 pg 27-33 [facility] Erythrocyte mean corpuscular hemoglobin concentration [Mass/volume] by Automated count 32.6 g/dL 32.0-36.[facility] [Ratio] by Automated count 16.2 % 11.5-14.5 [facility] Platelets [#/volume] in Blood by Automated count 392 10*3/uL 150-400 [facility] Differential cell count method - Blood [facility] Neutrophils/100 leukocytes in Blood by Automated count 78 % [facility] Lymphocytes/100 leukocytes in Blood by Automated count 10 % [facility] Monocytes/100 leukocytes in Blood by Automated count 8 % [facility] Eosinophils/100 leukocytes in Blood by Automated count 2 % [facility] Basophils/100 leukocytes in Blood by Automated count 2 % [facility] Neutrophils [#/volume] in Blood by Automated count 8.04 10*3/uL 1.8-7 .0 [facility] Lymphocytes [#/volume] in Blood by Automated count 1.00 10*3/uL 1.2-4 .0 L [facility] Monocytes [#/volume] in Blood by Automated count 0.78 10*3/uL 0-0.8 [facility] Eosinophils [#/volume] in Blood by Automated count 0.21 10*3/uL 0-0.5 [facility] Basophils [#/volume] in Blood by Automated count 0.15 10*3/uL 0-0.2 [facility] Nucleated erythrocytes/100 leukocytes [Ratio] in Blood by Automated count 0 /100{WBCs} 0-0 [facility] ID Date Data Source [id number] 01/09/2020 01:47:26 AM [facility] Name Value Range Interpretation Code Description Data [place] rce(s) Supporting Document(s) Magnesium [Mass/volume] in Serum or Plasma 2.1 mg/dL 1.6-2.4 [facility] ID Date Data Source [id number] 01/09/2020 01:47:26 AM [facility] Name Value Range Interpretation Code Description Data [place] rce(s) Supporting Document(s) Phosphate [Mass/volume] in Serum or Plasma 2.7 mg/dL 2.5-4.5 [facility] ID Date Data Source [id number] 01/08/2020 09:43:33 PM [facility] Name Value Range Interpretation Code Description Data [place] rce(s) Supporting Document(s) Glucose [Mass/volume] in Capillary blood by Glucometer 152 mg/dL 70- 140 [facility] ID Date Data Source [id number] 01/08/2020 06:50:49 PM [facility] IR SINOGRAMFINAL RESULTInterpreted by:YESICA Tsai: Anterior pelvic drain sinogram and repositionCLINICAL INDICATIONS: Anterior pelvic drain evaluation was requested by the primary team.Contrast Type and Dose: Omnipaque 300 3 mLFluoroscopy time 0.4 minutes, Fluoroscopy Dose 5.3 MGy.COMPARISON: Abdominal radiograph from 01/07/2020. CT of the abdomen and pelvis from 01/03/2020.TIME OUT: Prior to the procedure a time out was performed in the presence of the patient and all personnel involved in this case. The patient identity, procedure type, procedure side/site, and allergies were verified... ............................................................Moderate Sedation: NoneTECHNIQUE: Position: The patient was transferred to the IR laboratory and was positioned supine on the procedural table. The abdomen and existing tube site was prepped and draped using maximum sterile barrier technique. Procedure: The site surrounding the anterior pelvic drain was anesthetized with buffered lidocaine. The securing suture was cut. The drain was retracted and a sinogram was performed. The drain was secured in place again with a 2-0 Prolene suture and a sterile occlusive dressing was placed. The drain was connected to an accordion bag. FINDINGS: Minimal residual cavity is seen in the anterior pelvis. Less than 5 mL of purulent fluid was aspiratedIMPRESSION:.1. Successful retraction and reposition of the anterior pelvic drain. If there is less than 10 mL of fluid drained in the next 24 hours, consider removal of the anterior pelvic drain at bedside.2. 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 Consider IVC filter removal and replacement as clinically warranted. This finding was communicated early on with the primary team.This document has been electronically signed by Eran Wright DO on 01/08/2020 6:48 PM Name Value Range Interpretation Code Description Data [place] rce(s) Supporting Document(s) ID Date Data Source [id number] 01/08/2020 04:01:13 PM [facility] Value Range Interpretation Code Description Data [place] rce(s) Supporting Document(s) Glucose [Mass/volume] in Capillary blood by Glucometer 108 mg/dL 70- 140 [facility] ID Date Data Source [id number] 01/08/2020 08:46:16 AM [facility] Value Range Interpretation Code Description Data [place] rce(s) Supporting Document(s) Glucose [Mass/volume] in Capillary blood by Glucometer 142 mg/dL 70- 140 [facility] ID Date Data Source [id number] 01/08/2020 06:16:13 AM [facility] Value Range Interpretation Code Description Data [place] rce(s) Supporting Document(s) Leukocytes [#/volume] in Blood by Automated count 11.8 10*3/uL 4-10 [facility] Erythrocytes [#/volume] in Blood by Automated count 3.73 10*6/uL 4.1- 5.3 [facility] Hemoglobin [Mass/volume] in Blood 10.9 g/dL 11.5-15.5 [facility] Hematocrit [Volume Fraction] of Blood by Automated count 33.7 % 3 6-45 [facility] Erythrocyte mean corpuscular volume [Entitic volume] by Auto mated count 90.3 fL 80-96 [facility] Erythrocyte mean corpuscular hemoglobin [Entitic mass] by Automated count 29.2 pg 27-33 [facility] Erythrocyte mean corpuscular hemoglobin concentration [Mass/volume] by Automated count 32.3 g/dL 32.0-36.0 [facility] width [Ratio] by Automated count 16.5 % 11.5-14.5 [facility] Platelets [#/volume] in Blood by Automated count 419 10*3/uL 150-400 [facility] Differential cell count method - Blood [facility] Neutrophils/100 leukocytes in Blood by Automated count 80 % [facility] Lymphocytes/100 leukocytes in Blood by Automated count 10 % [facility] Monocytes/100 leukocytes in Blood by Automated count 7 % [facility] Eosinophils/100 leukocytes in Blood by Automated count 2 % [facility] Basophils/100 leukocytes in Blood by Automated count 1 % [facility] Neutrophils [#/volume] in Blood by Automated count 9.46 10*3/uL 1.8-7 .0 [facility] Lymphocytes [#/volume] in Blood by Automated count 1.12 10*3/uL 1.2-4 .0 [facility] Monocytes [#/volume] in Blood by Automated count 0.81 10*3/uL 0-0.8 [facility] Eosinophils [#/volume] in Blood by Automated count 0.23 10*3/uL 0-0.5 [facility] Basophils [#/volume] in Blood by Automated count 0.14 10*3/uL 0-0.2 [facility] Nucleated erythrocytes/100 leukocytes [Ratio] in Blood by Automated count 0 /100{WBCs} 0-0 [facility] ID Date Data Source [id number] 01/08/2020 06:39:59 AM EDT [facility] Hospital Name Value Range Interpretation Code Description Data [place] rce(s) Supporting Document(s) Bicarbonate [Moles/volume] in Serum 27 mmol/L 22-29 [facility] Chloride [Moles/volume] in Serum or Plasma 99 mmol/L 98-107 [facility] Creatinine [Mass/volume] in Serum or Plasma 0.50 mg/dL 0.50-0.90 [facility] Glucose [Mass/volume] in Serum or Plasma 118 mg/dL 70-140 [facility] Potassium [Moles/volume] in Serum or Plasma 4.6 mmol/L 3.4-5.1 [facility] Sodium [Moles/volume] in Serum or Plasma 133 mmol/L 136-145 [facility] Urea nitrogen [Mass/volume] in Serum or Plasma 15 mg/dL 8-23 [facility] Anion gap 3 in Serum or Plasma 7 mmol/L 8-15 [facility] Osmolality of Serum or Plasma by calculation 278 mosm/kg 275-300 [facility] Creatinine/Urea nitrogen [Mass Ratio] in Serum or Plasma 30 [facility] Calcium [Mass/volume] in Serum or Plasma 7.8 mg/dL 8.8-10.2 L [facility] Glomerular filtration rate/1.73 sq M pre dicted among non-blacks [Volume Rate/Area] in Serum or Plasma by Creatinine-based formula (MDRD) >6 0 [facility] Glomerular filtration rate/1.73 sq M pre dicted among blacks [Volume Rate/Area] in Serum or Plasma by Creatinine-based formula (MDRD) >60 [facility] ID Date Data Source [id number] 01/08/2020 06:39:59 AM EDT [facility] Name Value Range Interpretation Code Description Data [place] rce(s) Supporting Document(s) Magnesium [Mass/volume] in Serum or Plasma 2.1 mg/dL 1.6-2.4 [facility] ID Date Data Source [id number] 01/08/2020 06:39:59 AM EDT [facility] Value Range Interpretation Code Description Data [place] rce(s) Supporting Document(s) Phosphate [Mass/volume] in Serum or Plasma 2.9 mg/dL 2.5-4.5 [facility] ID Date Data Source [id number] 01/08/2020 12:44:21 AM EDT [facility] Value Range Interpretation Code Description Data [place] rce(s) Supporting Document(s) Glucose [Mass/volume] in Capillary blood by Glucometer 130 mg/dL 70- 140 [facility] ID Date Data Source [id number] 01/07/2020 05:11:18 PM [facility] Name Value Range Interpretation Code Description Data [place] rce(s) Supporting Document(s) Glucose [Mass/volume] in Capillary blood by Glucometer 120 mg/dL 70- 140 [facility] ID Date Data Source [id number] 01/07/2020 09:02:24 AM [facility] Name Value Range Interpretation Code Description Data [place] rce(s) Supporting Document(s) Glucose [Mass/volume] in Capillary blood by Glucometer 131 mg/dL 70- 140 [facility] ID Date Data Source [id number] 01/07/2020 04:48:50 AM [facility] XR ABDOMEN AP ABD SUPINE ONLY [id number] RESULTInterpreted by:BEHZAD NunesROCEDURE INFORMATION: Exam: XR Abdomen, 1 View Exam date and time: 01/07/2020 4:14 AM Age: 74 years old Clinical indication: Salmonella sepsis; Diverticulitis of large intestine with perforation and abscess without bleeding; Altered mental status, unspecified; Other: Abdominal TECHNIQUE: Imaging protocol: XR of the abdomen. Views: Frontal supine view of the abdomen. 1 View. COMPARISON: DX XR ABDOMEN AP ABD SUPINE ONLY [id number] PORTABLE 01/04/2020 3:46 PM FINDINGS: Tubes, catheters and devices: Small caliber drainage tubes are superimposed over the pelvis. Gastrointestinal tract: A couple of dilated loops of small bowel are seen in the left mid abdomen. Gas is identified in the colon. Intraperitoneal space: No abdominal masses are identified. Organs: There are no renal or biliary calculi identified. Vasculature: Inferior vena cava filter is demonstrated at the level of L1-L2. Bones/joints: There is mild dextrocurvature of the lumbar spine. Spondylosis is noted. IMPRESSION: A couple of dilated loops of small bowel in the left mid abdomen, similar in appearance to the previous study, suggesting partial small bowel obstruction.. THIS DOCUMENT HAS BEEN ELECTRONICALLY SIGNED BY IVAN CM MDThis document has been electronically signed by Ivan Cm MD on 01/07/2020 4:48 AM Name Value Range Interpretation Code Description Data [place] rce(s) Supporting Document(s) ID Date Data Source [id number] 01/07/2020 04:54:27 AM EDT [facility] Hospital Name Value Range Interpretation Code Description Data [place] rce(s) Supporting Document(s) Leukocytes [#/volume] in Blood by Automated count 11.9 10*3/uL 4-10 [facility] Erythrocytes [#/volume] in Blood by Automated count 3.72 10*6/uL 4.1- 5.3 L [facility] Hemoglobin [Mass/volume] in Blood 11.0 g/dL 11.5-15.5 L [facility] Hematocrit [Volume Fraction] of Blood by Automated count 33.8 % 3 6-45 [facility] Erythrocyte mean corpuscular volume [Entitic volume] by Auto mated count 90.8 fL 80-96 [facility] Erythrocyte mean corpuscular hemoglobin [Entitic mass] by Automated count 29.4 pg 27-33 [facility] Erythrocyte mean corpuscular hemoglobin concentration [Mass/volume] by Automated count 32.4 g/dL 32.0-36.0 [facility] width [Ratio] by Automated count 16.4 % 11.5-14.5 [facility] Platelets [#/volume] in Blood by Automated count 447 10*3/uL 150-400 [facility] Differential cell count method - Blood [facility] Neutrophils/100 leukocytes in Blood by Automated count 81 % [facility] Lymphocytes/100 leukocytes in Blood by Automated count 10 % [facility] Monocytes/100 leukocytes in Blood by Automated count 6 % [facility] Eosinophils/100 leukocytes in Blood by Automated count 2 % [facility] Basophils/100 leukocytes in Blood by Automated count 1 % [facility] Neutrophils [#/volume] in Blood by Automated count 9.76 10*3/uL 1.8-7 .0 [facility] Lymphocytes [#/volume] in Blood by Automated count 1.15 10*3/uL 1.2-4 .0 L [facility] Monocytes [#/volume] in Blood by Automated count 0.72 10*3/uL 0-0.8 [facility] Eosinophils [#/volume] in Blood by Automated count 0.19 10*3/uL 0-0.5 [facility] Basophils [#/volume] in Blood by Automated count 0.12 10*3/uL 0-0.2 [facility] Nucleated erythrocytes/100 leukocytes [Ratio] in Blood by Automated count 0 /100{WBCs} 0-0 [facility] ID Date Data Source [id number] 01/07/2020 05:27:36 AM [facility] Name Value Range Interpretation Code Description Data [place] rce(s) Supporting Document(s) Magnesium [Mass/volume] in Serum or Plasma 2.4 mg/dL 1.6-2.4 [facility] ID Date Data Source [id number] 01/07/2020 05:27:36 AM [facility] Value Range Interpretation Code Description Data [place] rce(s) Supporting Document(s) Bicarbonate [Moles/volume] in Serum 28 mmol/L 22-29 [facility] Chloride [Moles/volume] in Serum or Plasma 100 mmol/L 98-107 [facility] Creatinine [Mass/volume] in Serum or Plasma 0.60 mg/dL 0.50-0.90 [facility] Glucose [Mass/volume] in Serum or Plasma 107 mg/dL 70-140 [facility] Potassium [Moles/volume] in Serum or Plasma 4.8 mmol/L 3.4-5.1 [facility] Sodium [Moles/volume] in Serum or Plasma 134 mmol/L 136-145 [facility] Urea nitrogen [Mass/volume] in Serum or Plasma 15 mg/dL 8-23 [facility] Anion gap 3 in Serum or Plasma 7 mmol/L 8-15 [facility] Osmolality of Serum or Plasma by calculation 279 mosm/kg 275-300 [facility] Creatinine/Urea nitrogen [Mass Ratio] in Serum or Plasma 24 [facility] Calcium [Mass/volume] in Serum or Plasma 8.9 mg/dL 8.8-10.2 [facility] Glomerular filtration rate/1.73 sq M pre dicted among non-blacks [Volume Rate/Area] in Serum or Plasma by Creatinine-based formula (MDRD) 89 mL/min/1.73m2 >60 [facility] Glomerular filtration rate/1.73 sq M pre dicted among blacks [Volume Rate/Area] in Serum or Plasma by Creatinine-based formula (MDRD) >60 [facility] ID Date Data Source [id number] 01/07/2020 05:27:36 AM [facility] Value Range Interpretation Code Description Data [place] rce(s) Supporting Document(s) Phosphate [Mass/volume] in Serum or Plasma 3.9 mg/dL 2.5-4.5 [facility] ID Date Data Source [id number] [facility] Interpretation Code Description Data [place] rce(s) Supporting Document(s) Glucose [Mass/volume] in Capillary blood by Glucometer 125 mg/dL 70- 140 [facility] ID Date Data Source [id number] 01/06/2020 03:58:36 PM EDT [facility] Value Range Interpretation Code Description Data [place] rce(s) Supporting Document(s) Glucose [Mass/volume] in Capillary blood by Glucometer 130 mg/dL 70- 140 [facility] ID Date Data Source [id number] 01/06/2020 01:00:[facility] Interpretation Code Description Data [place] rce(s) Supporting Document(s) [facility] ALTMWh5rNgQBXmIy28/PKZfiXHBok5RnVCnjJTb9FOecRUWmV2IjJRB6sI4yUFH3PQzDWeWuBiVuAPM3 lbm [file] NILAM+RSdhLXefnGf4nHVfHOGoUe6NNUHoSDQwHGBzHSIoZVCmQREkKYFfTLFrVDAsPPCqJDZqPTJnZPPr ICAgICAgICAgICAgICAgICAgICAgICAgICAgICAgIC MtUGFtTIRrKDTbCFTxTEJtBPSaERHjJPVaHWCuIT1AFYIvAPBgALEzRFLbJURgWVVyUSHkENApYEIfZB AgICAgICAgICAgICAgICAgICAgICAgICAgICAgICAgICAgICAgICAgICAgICAgICAgICAgICAgICAgIC XsPQMcRFWnTPDgJE6JWRGqXXBfXKPtPMVqTBSmAVUo ICAgICAgICAgICAgICAgICAgICAgICAgICAgICAgICAgICAgICAgICAgICAgICAgICAgICAgICAgICAg DLVgXIQaPZGnIMXmKFVuFNShJQWkGE7MZIInJQHrGDFpHEXjRDRmSHIdYWThEQUdVBSaIPYlQVQnLMQe ICAgICAgICAgICAgICAgICAgICAgICAgICAgICAgIC AqGWHcHGXvQSHmFVElZEGuSUDsWXXxXURrXUQyEHJfVP7XLAExWYSnLBNfLKFqLZGmICKvVHWoJGLvYO AgICAgICAgICAgICAgICAgICAgICAgICAgICAgICAgICAgICAgICAgICAgICAgICAgICAgICAgICAgIC NlVVNvMHCpTWUsHCXyPP4FBGAwQICtQWWpDDAwWMRv ICAgICAgICAgICAgICAgICAgICAgICAgICAgICAgICAgICAgICAgICAgICAgICAgICAgICAgICAgICAg RZXwCGGfMCXrUPToJGKvMJKdJSIiLAPgBH4IXRNhWNRwFSBsMHDnJQMqBINfYQMbRJBwGFSkUBKtARYw ICAgICAgICAgICAgICAgICAgICAgICAgICAgICAgIC IjBLRvHKKiBMRiOOMdLXLnFDLvNVCeYBIsGOLlGDUbXJSwCX0XSXNwOEZgRWKeFZQzIDZtOKDvTSEjXR AgICAgICAgICAgICAgICAgICAgICAgICAgICAgICAgICAgICAgICAgICAgICAgICAgICAgICAgICAgIC KaWOHyGDAvDHDfKDIgURUeJE5IDXGaSTVrQBEvBVWm ICAgICAgICAgICAgICAgICAgICAgICAgICAgICAgICAgICAgICAgICAgICAgICAgICAgICAgICAgICAg HCDnHPBdYNUoGFZqYSDxDNIsVQHeYNFoZKFsQB3XEQMsWRPhZNBsZTGaPFYxFCFuADOiMTFrRWXyEVEv ICAgICAgICAgICAgICAgICAgICAgICAgICAgICAgIC PpEGTgCXYkSJMwABDdVMFgCHKbCYDkDCFyJRPnZVBkQRBxKOJhRS0VEM99wVDnx6Q4DGNqYZ7mbcl/Pg 5TIYswjmZtgAQaBK8KVrLkZB3piu8ZRlVrFF2jtw5HHRuLBmVsT3M9rORcWCGvMNUEBzUaA07xRTfmZt 66YGzbPOJhLmQaDOg9Hx9BRgXmE5zyGCYnWvA4ZTAf AxH5OVFzWjP3GKSsMzUvPEyqIC4Ol6MvxFGpSDh+Ry6PLQ5zj3HjAQbwSnEvBO6zcz8AXIsRZqKsY2Zr dzW9RLP8IPKgDx3DYOMpISOtxCGvTxLkTZETGrBeM5SfiC13GDJZAq7+YTjyxbTxZhbGBgT5KTXer8Cm BLy3NA9MSQJkROs4vKOoX42ij5MobDRnEhbkXIktoq AfYYYOVUp5uWS0NDCHQYJlgLDxXJ5vHM3eUJVyDVXqFaNlTFGHRH0OSEZySWNplKWiVZEaAOXUVS3TWT zlFGJ5TTRfznFzuRYnWKbuJL2ZWYOqznAeVtAnASMRREy+Ii5GIB4dl1TmWCrhMFKtAC5zpq4IPFhNCv MfC1W1dFFdA5H1RZfqPa3SLCOuVZBkDjTpIMRZMJlv EC0LMS0kvuA5PY0ViOOzXZPjBMWoqUUqGJw7V11gqZSdBXedCS5OLBF+Scarlett+Fj0UOPViAFYwGCTqBjRw DYGGNpXwX1HkG7FLv0AcJ5IhHM71gWkysoOmVTpfRU6EMU3mEEYqAZOTAE9NyHFjtH4kvaLrFzEuHTJH BfZoM33qdDWtTRWpCGZ0FMYjHp5YLZVwK0LbodCkwK aexcKdMBLwHGVSAA8EDPohghJjaIFegHiyAE96oWulWB1YPp9NAyXoZI8htu7UkPOgIt4OYLZtZO9JTH NaKRYpOIWmOIM6BADdOxYxJHokWZWsBJWuLTH9ILZfJKAtLX6LDeZgAQClJcR5WqTrEPWiNVQjrf9CUX IcOSLzTwF6PNPkKFNcTFGrXYzpISHjWHQuASV2WTOt NDUsQM2TCsPoTQWfZZZ0NBjnIIZjYEZkym9RRXVxTBDrLaytWVTeCUXyJIEfBWuoHSVnUHJ8YfpiZBSj ZSDnOJ0GHqMvGZIvZKG6UqfkIQCaNVXpuq2AKWKaSGZoIHUxALNfRWSuGROfAIcnARLpCJE8KNAhIYRn PXXqUJ0NOiFsVKLiLOz4KQYrGRBzEGFwma7OTIYaFQ XiIEM7YWOhGYHxSMYkZIffMHTiWRF6YJmjRYGpWNSpDE5ERgSaJRTmVIG1ZNXiDCKnHHDbin6XMSDhVC IqBHK0McJoDXYcMEQxPJmtVKXaLPBsFoFpWCYmQXNeZF9XFoJgJHRcDuJ1SJFkHDBpMUAfae0POLHuVV AyMjkzNCAwMDAwMCBuDQowMDAwMDIzMTQzIDAwMDAw WT4IPfDeFEOzFvLnQBBmMNZbFTQosa2KZHMdOEXpZpAbZKGdPLRrNNBtCFktTKDwSNN0KBqpGSMcABZx OE9PZyPpFENcIqO6VoUmCSIsDSQagk2MYBKaVOExCYtwKYNwMTTdHILpDBetOLNjISP9ZlV3PPXtUYHq CG4PNjTwLERiQqX7SCAhMACxKPUevm2AKMUmLNMbBw c9KbGdISZqJJEcLUpmSTVeCWL1QWVcVOLjZISpHA7TTuJiGSneROUWXku6BUlaL4v2DKQaGX0UG5Pnt2 ThImsxTHPNRZpaXL6avoKgUAUbYs8MH3fAKwqeODK6HAn6OIe4UDI1GfH3XEBgKRLtOqz6LLDpHeCyFV 2tZAQzObVvNtv0YRt7XAIoNiD6C5T8BRLdMLK1BRMe GGKpWbCuON4UQf1KNcC6OLW8yGAdPx4WPwnwHrQEXaRmRM9KZOn= ID Date Data Source [id number] 01/06/2020 07:49:56 AM EDT [facility] Name Value Range Interpretation Code Description Data [place] rce(s) Supporting Document(s) Glucose [Mass/volume] in Capillary blood by Glucometer 125 mg/dL 70- 140 [facility] ID Date Data Source [id number] 01/06/2020 03:42:29 AM EDT [facility] Name Value Range Interpretation Code Description Data [place] rce(s) Supporting Document(s) Leukocytes [#/volume] in Blood by Automated count 13.1 10*3/uL 4-10 [facility] Erythrocytes [#/volume] in Blood by Automated count 3.59 10*6/uL 4.1- 5.3 L [facility] Hemoglobin [Mass/volume] in Blood 10.7 g/dL 11.5-15.5 L [facility] Hematocrit [Volume Fraction] of Blood by Automated count 32.9 % 3 6-45 L [facility] Erythrocyte mean corpuscular volume [Entitic volume] by Auto mated count 91.4 fL 80-96 [facility] Erythrocyte mean corpuscular hemoglobin [Entitic mass] by Automated count 29.7 pg 27-33 [facility] Erythrocyte mean corpuscular hemoglobin concentration [Mass/volume] by Automated count 32.5 g/dL 32.0-36.0 [facility] width [Ratio] by Automated count 16.4 % 11.5-14.5 [facility] Platelets [#/volume] in Blood by Automated count 455 10*3/uL 150-400 [facility] Differential cell count method - Blood [facility] Neutrophils/100 leukocytes in Blood by Automated count 86 % [facility] Lymphocytes/100 leukocytes in Blood by Automated count 7 % [facility] Monocytes/100 leukocytes in Blood by Automated count 5 % [facility] Eosinophils/100 leukocytes in Blood by Automated count 1 % [facility] Basophils/100 leukocytes in Blood by Automated count 1 % [facility] Neutrophils [#/volume] in Blood by Automated count 11.41 10*3/uL 1.8- 7.0 [facility] Lymphocytes [#/volume] in Blood by Automated count 0.85 10*3/uL 1.2-4 .0 L [facility] Monocytes [#/volume] in Blood by Automated count 0.64 10*3/uL 0-0.8 [facility] Eosinophils [#/volume] in Blood by Automated count 0.12 10*3/uL 0-0.5 [facility] Basophils [#/volume] in Blood by Automated count 0.07 10*3/uL 0-0.2 [facility] Nucleated erythrocytes/100 leukocytes [Ratio] in Blood by Automated count 0 /100{WBCs} 0-0 [facility] ID Date Data Source [id number] 01/06/2020 04:04:16 AM [facility] Name Value Range Interpretation Code Description Data [place] rce(s) Supporting Document(s) Bicarbonate [Moles/volume] in Serum 28 mmol/L 22-29 [facility] Chloride [Moles/volume] in Serum or Plasma 102 mmol/L 98-107 [facility] Creatinine [Mass/volume] in Serum or Plasma 0.46 mg/dL 0.50-0.90 L [facility] Glucose [Mass/volume] in Serum or Plasma 97 mg/dL 70-140 [facility] Potassium [Moles/volume] in Serum or Plasma 4.8 mmol/L 3.4-5.1 [facility] Sodium [Moles/volume] in Serum or Plasma 136 mmol/L 136-145 [facility] Urea nitrogen [Mass/volume] in Serum or Plasma 13 mg/dL 8-23 [facility] Anion gap 3 in Serum or Plasma 6 mmol/L 8-15 L [facility] Osmolality of Serum or Plasma by calculation 282 mosm/kg 275-300 [facility] Creatinine/Urea nitrogen [Mass Ratio] in Serum or Plasma 28 [facility] Calcium [Mass/volume] in Serum or Plasma 8.2 mg/dL 8.8-10.2 L [facility] Glomerular filtration rate/1.73 sq M pre dicted among non-blacks [Volume Rate/Area] in Serum or Plasma by Creatinine-based formula (MDRD) >6 0 [facility] Glomerular filtration rate/1.73 sq M pre dicted among blacks [Volume Rate/Area] in Serum or Plasma by Creatinine-based formula (MDRD) >60 [facility] ID Date Data Source [id number] 01/06/2020 04:04:16 AM [facility] Name Value Range Interpretation Code Description Data [place] rce(s) Supporting Document(s) Phosphate [Mass/volume] in Serum or Plasma 3.2 mg/dL 2.5-4.5 [facility] ID Date Data Source [id number] 01/06/2020 04:04:16 AM [facility] Name Value Range Interpretation Code Description Data [place] rce(s) Supporting Document(s) Magnesium [Mass/volume] in Serum or Plasma 2.3 mg/dL 1.6-2.4 [facility] ID Date Data Source [id number] 01/06/2020 01:09:20 AM EDT [facility] Name Value Range Interpretation Code Description Data [place] rce(s) Supporting Document(s) Glucose [Mass/volume] in Capillary blood by Glucometer 114 mg/dL 70- 140 [facility] ID Date Data Source [id number] 01/05/2020 04:00:58 PM EDT [facility] Name Value Range Interpretation Code Description Data [place] rce(s) Supporting Document(s) Glucose [Mass/volume] in Capillary blood by Glucometer 124 mg/dL 70- 140 [facility] ID Date Data Source [id number] 01/05/2020 12:38:21 PM EDT [facility] Value Range Interpretation Code Description Data [place] rce(s) Supporting Document(s) [facility] HGGYNy3vPwIEBlMw52/IIDvaQUTvr9VqGVkzKUb1KMxvBROrF2JdPMF8wY1aGWP4QVfMSgTsZbAcRDX8 m [file] DQogICAgICAgICAgICAgICAgICAgICAgICAgICAgICAgICAgICAgICAgICAgICAgICAgICAgICAgICAg ICAgICAgICAgICAgICAgICAgICAgICAgICAgICAgICAgICAgICAgICAgDQogICAgICAgICAgICAgICAg ICAgICAgICAgICAgICAgICAgICAgICAgICAgICAgIC AgICAgICAgICAgICAgICAgICAgICAgICAgICAgICAgICAgICAgICAgICAgICAgICAgICAgDQogICAgIC AgICAgICAgICAgICAgICAgICAgICAgICAgICAgICAgICAgICAgICAgICAgICAgICAgICAgICAgICAgIC AgICAgICAgICAgICAgICAgICAgICAgICAgICAgICAg ICAgDQogICAgICAgICAgICAgICAgICAgICAgICAgICAgICAgICAgICAgICAgICAgICAgICAgICAgICAg ICAgICAgICAgICAgICAgICAgICAgICAgICAgICAgICAgICAgICAgICAgICAgDQogICAgICAgICAgICAg ICAgICAgICAgICAgICAgICAgICAgICAgICAgICAgIC AgICAgICAgICAgICAgICAgICAgICAgICAgICAgICAgICAgICAgICAgICAgICAgICAgICAgICAgDQogIC AgICAgICAgICAgICAgICAgICAgICAgICAgICAgICAgICAgICAgICAgICAgICAgICAgICAgICAgICAgIC AgICAgICAgICAgICAgICAgICAgICAgICAgICAgICAg ICAgICAgDQogICAgICAgICAgICAgICAgICAgICAgICAgICAgICAgICAgICAgICAgICAgICAgICAgICAg ICAgICAgICAgICAgICAgICAgICAgICAgICAgICAgICAgICAgICAgICAgICAgICAgDQogICAgICAgICAg ICAgICAgICAgICAgICAgICAgICAgICAgICAgICAgIC AgICAgICAgICAgICAgICAgICAgICAgICAgICAgICAgICAgICAgICAgICAgICAgICAgICAgICAgICAgDQ ogICAgICAgICAgICAgICAgICAgICAgICAgICAgICAgICAgICAgICAgICAgICAgICAgICAgICAgICAgIC AgICAgICAgICAgICAgICAgICAgICAgICAgICAgICAg ICAgICAgICAgDQogICAgICAgICAgICAgICAgICAgICAgICAgICAgICAgICAgICAgICAgICAgICAgICAg RKXoJYLiBRPnPNQnKCVoFMVuTVGeOTNpHZLwVFVpCSPiOLVkHNYpWCDgQFGwLIYiTRShWXk6C7xoXWSd NMSjNP5qBZv0Ye6+BXgKCmBhHPU0cqRpwN9JIC4zz8 BkJFyaCZDcz6FqLTs3JE1SIBMeSFroYW6QCEaamh6OHNMdSHHfrEAYw2olHaFdXEJ3MFWjLzqwVR8EMT LvK1tzqyZzMYGwZVRHZCinWFNPQMejGYEZTHDbUAFsIgHsHrNoBTPxLAUwWHFIGSG7ADKeZwCdQFhhHU 6Zh5TubII8NQb+Mt4TWV9ve5SbNBwsLaRcDA0avs6O QHeKXaRuF5TslqN7ZMF2OJYuOv7OEVOvVEVdeIKxIHBjZRXQCgNiF8FaoS73GBNISs9+DQplbmRvYmoN AhK2GJVgt1MbOKe2QL0CEFOgOHw5qTZiD57je2UtvUSxMpsdRFLwcGJnVV5gqxwycejzOYUwBYOkXEWk ZbDyBwMnMMKpDTb1AUMWXJiTXcWnM3Kce4RlLyA6ZU JkPlXkOGpeJBXzSqP4AQ56dTcdBP5SDLVnOZTlTE26MPM3KOYgAh7VPe0ATtCxNP3ndl0TIktwSGUzNp iRMql1EZjcUT2LtARqZ1TsrSFcw5lJEtBoB5FJZWC9FFTmVj9CYGJnKmRbCSUpRVttPZ3kPVZfZEVMdJ zvxzE4LO3WIW7degUpYW5VNeFmQj3aVl7HSoDgX1Dg Y7OiUBXzJVCKBIasXI4YRFqzRT1oCF7Kx4DCeSGraU4wal3RCWZyUOJmAovvtx6DHtnpG8M7eBeeBNMf PlefACKTXOaiAZ0LVHHpRSS5OEAzDeUdOKWXXiBlI56nMB1PK8Ano25hLeR5QQGaEyXwCHlcCA99dSmt rxQamEUubVuaQK8XXq9+DQplbmRvYmoNCnhyZWYNCj MuXOLMVoZxOFUjWADmRFUmEzD9ZoAxXs8XQUVqOSVoUHOqHjGkKHBeDNLvTOgsXHDuGXQrFTK0DXSxDL HmQJ7LGqYvIPFbXGZ6LwIvVBEjNVMycn1SEVRzFZYoVCZ4WbIiVVBgRJKfWLvwIKQuKBHpLOS9OHAnGT IyWO4SJuJgJJEpWRD0KHDgMIRyVFJvhc5TOWClDAAf OHJcRWYnAIOtNUFdPKhcPJOrWFK4VWSaODIkSQSyDL3WYtIeXVSuPUykEjvbQLMgSZFpti9VPTVaNFQa ISZkKcHcHNRuSCKoJWmjDQBpWOGdHwE4GUQoGKJyVY5PIoZkAUXeEOJ8UYGaHTXeVFQvxk3VLHRtSEWy MaPxYaJzBNWbXBCbTWquWRTdAPI5GWYzBZNeQTDgSK 5HDfDmFGWdOmHyFuRdNHIiIBMppj9ZTJKtBUUqDNR0SgJuEJHgKSTyGLfmTBWsXJVqNAYfDNEbYFVlOR 7NNmRpRZTrJhTsHxEqTRCqIAAshm3VGXKdJMZqXNRyNgAbCHCvXQCmFJvfWZIsQFU4RmCbBDHpFCLrOA 5KVeBwNCAlEsT2VWQgIXJzFEHiiz3HHARwJSZmZFE6 OVVcLMJaMKHaILhdMJSaZUO0EqW3HJVuYQKgTT7MWsKkHHKyLzI0WBSsUPOnCFOnip0RKBGgGAOsFlwn VJZkBUVgLDLsIUmgSHRjHGI3QBGoOZMyAYNkKY2QKmEqPVVdWanoPLYoNCXtCJRkrx2NMYTsDXMeDXF1 DXXfUGWiQBTxUDxeVBLbFYP7NYf1UAKuYNByLN6LBa FeCSVoNswhGCbtGKVsUNKlwq6LCWPdHEQpVLA1SbByGZPuWHAcKOvlKDOpPVF7XBfaOPCyBMTtGU6FQg EkCMEbUHT1NjSbPNUoQQAysu6ZXRNaCNS5KOIrKJEmONDyQKDbJNxnXBLkIPBqAFGkLBLzMZOjVN2ABl DwHQKtNFOeYxCuEUEgYRTojb6ISUYaUXP5DygrMlMj BEFfUAViEWyrDAYyZQTuTtj7WBFaKJEyHN0SSiQlKRIxNCX2YrsiVGZzBDUbdo7NdPXnjWmalh1OTFaR Uj4UiXpkZTVcWYfsOy6jzNTsYVOpQQCLQm7XauOcUMOeKXWCMOraGFAsQBC0QRXhCJQiOBPdLUAoUYrl HUCnKnO0HMWyO9TvXIFoQxV0JwW2TID8LrZjG1JqKT AjK2EwTmXrPBezP6Q2BxT8MiC+OP5tCJq+Ev6Sh9VxklW7eyNiWPx1DsK5IC0JFMASC4AYFx== ID Date Data Source [id number] 01/05/2020 08:45:16 AM EDT [facility] Value Range Interpretation Code Description Data [place] rce(s) Supporting Document(s) Glucose [Mass/volume] in Capillary blood by Glucometer 132 mg/dL 70- 140 [facility] ID Date Data Source [id number] 01/05/2020 04:30:06 AM EDT [facility] Value Range Interpretation Code Description Data [place] rce(s) Supporting Document(s) Glucose [Mass/volume] in Capillary blood by Glucometer 116 mg/dL 70- 140 [facility] ID Date Data Source [id number] 01/05/2020 02:26:09 AM EDT [facility] Value Range Interpretation Code Description Data [place] rce(s) Supporting Document(s) Leukocytes [#/volume] in Blood by Automated count 12.6 10*3/uL 4-10 H [facility] Erythrocytes [#/volume] in Blood by Automated count 3.74 10*6/uL 4.1- 5.3 L [facility] Hemoglobin [Mass/volume] in Blood 11.0 g/dL 11.5-15.5 [facility] Hematocrit [Volume Fraction] of Blood by Automated count 33.9 % 3 6-45 L [facility] Erythrocyte mean corpuscular volume [Entitic volume] by Auto mated count 90.6 fL 80-96 [facility] Erythrocyte mean corpuscular hemoglobin [Entitic mass] by Automated count 29.4 pg 27-33 [facility] Erythrocyte mean corpuscular hemoglobin concentration [Mass/volume] by Automated count 32.5 g/[facility].0[facility] [Ratio] by Automated count 16.1 % 11.5-14.5 H [facility] Platelets [#/volume] in Blood by Automated count 490 10*3/uL 150-400 H [facility] Differential cell count method - Blood [facility] Neutrophils/100 leukocytes in Blood by Automated count 86 % [facility] Lymphocytes/100 leukocytes in Blood by Automated count 7 % [facility] Monocytes/100 leukocytes in Blood by Automated count 6 % [facility] Eosinophils/100 leukocytes in Blood by Automated count 1 % [facility] Basophils/100 leukocytes in Blood by Automated count 0 % [facility] Neutrophils [#/volume] in Blood by Automated count 10.82 10*3/uL 1.8- 7.0 H [facility] Lymphocytes [#/volume] in Blood by Automated count 0.88 10*3/uL 1.2-4 .0 L [facility] Monocytes [#/volume] in Blood by Automated count 0.73 10*3/uL 0-0.8 [facility] Eosinophils [#/volume] in Blood by Automated count 0.12 10*3/uL 0-0.5 [facility] Basophils [#/volume] in Blood by Automated count 0.05 10*3/uL 0-0.2 [facility] Nucleated erythrocytes/100 leukocytes [Ratio] in Blood by Automated count 0 /100{WBCs} 0-0 [facility] ID Date Data Source [id number] 01/05/2020 02:46:15 AM [facility] Name Value Range Interpretation Code Description Data [place] rce(s) Supporting Document(s) Magnesium [Mass/volume] in Serum or Plasma 2.2 mg/dL 1.6-2.4 [facility] ID Date Data Source [id number] 01/05/2020 02:46:15 AM [facility] Name Value Range Interpretation Code Description Data [place] rce(s) Supporting Document(s) Phosphate [Mass/volume] in Serum or Plasma 2.2 mg/dL 2.5-4.5 [facility] ID Date Data Source [id number] 01/05/2020 02:46:15 AM [facility] Name Value Range Interpretation Code Description Data [place] rce(s) Supporting Document(s) Bicarbonate [Moles/volume] in Serum 28 mmol/L 22-29 [facility] Chloride [Moles/volume] in Serum or Plasma 104 mmol/L 98-107 [facility] Creatinine [Mass/volume] in Serum or Plasma 0.46 mg/dL 0.50-0.90 [facility] Glucose [Mass/volume] in Serum or Plasma 110 mg/dL 70-140 [facility] Potassium [Moles/volume] in Serum or Plasma 4.2 mmol/L 3.4-5.1 [facility] Sodium [Moles/volume] in Serum or Plasma 137 mmol/L 136-145 [facility] Urea nitrogen [Mass/volume] in Serum or Plasma 11 mg/dL 8-23 [facility] Anion gap 3 in Serum or Plasma 5 mmol/L 8-15 L [facility] Osmolality of Serum or Plasma by calculation 284 mosm/kg 275-300 [facility] Creatinine/Urea nitrogen [Mass Ratio] in Serum or Plasma 24 [facility] Calcium [Mass/volume] in Serum or Plasma 8.4 mg/dL 8.8-10.2 L [facility] Glomerular filtration rate/1.73 sq M pre dicted among non-blacks [Volume Rate/Area] in Serum or Plasma by Creatinine-based formula (MDRD) >6 0 [facility] Glomerular filtration rate/1.73 sq M pre dicted among blacks [Volume Rate/Area] in Serum or Plasma by Creatinine-based formula (MDRD) >60 [facility] ID Date Data Source [id number] 01/04/2020 08:10:00 PM EDT [facility] XR CHEST FRONTAL ONLY [id number] RESULTI nterpreted by:Nila Cortez [facility]: Exam: XR Chest, 1 View Exam date and time: 01/04/2020 8:02 PM Age: 74 years old Clinical indication: Salmonella sepsis; Diverticulitis of large intestine with perforation and abscess without bleeding; Altered mental status, unspecified; Device placement; Ng tube; Additional info: Ng tube placement TECHNIQUE: Imaging protocol: XR of the chest Views: 1 view. COMPARISON: CR XR CHEST FRONTAL ONLY [id number] PORTABLE 12/30/2019 5:04 PM FINDINGS: Tubes, catheters and devices: NG tube in the stomach. Right-sided PICC catheter over the SVC. Lungs: New right basilar atelectasis since comparison. Pleural space: Unremarkable. Heart/Mediastinum: Unremarkable. No cardiomegaly. Vasculature: IVC filter in place. Bones/joints: Unremarkable. IMPRESSION: 1. NG tube in the stomach. 2. IVC filter in place. 3. Right-sided PICC catheter over the SVC. 4. New right basilar atelectasis since comparison. THIS DOCUMENT HAS BEEN ELECTRO NICALLY SIGNED BY NILA CORTEZ MDThis document has been electronically signed by Nila Cortez MD on 01/04/2020 8:09 PM Name Value Range Interpretation Code Description Data [place] rce(s) Supporting Document(s) ID Date Data Source [id number] 01/04/2020 05:42:27 PM T [facility] Name Value Range Interpretation Code Description Data [place] rce(s) Supporting Document(s) Glucose [Mass/volume] in Capillary blood by Glucometer 107 mg/dL 70- 140 [facility] ID Date Data Source [id number] 01/04/2020 05:20:11 PM EDT [facility] XR ABDOMEN AP ABD SUPINE ONLY [id number] RESULTInterpreted by:Frandy Jameson MDINDICATION: 74-year-old female evaluate for small bowel obstruction from diverticulitis.TECHNIQUE: Multiple views of the abdomen were obtained..COMPARISON: Abdominal radiograph dated 01/02/2020..FINDINGS: Multiple surgical drains are projecting over the lower abdomen/pelvis. A IVC filter is visualized. An enteric tube is noted with distal tip and side-port projecting over the region of the stomach. The osseous structures are grossly unchanged in the prior study.. The lung bases are clear. There is air in loops of large and small bowel. This was present on the previous study. It is not significantly changed. The most dilated loop of small bowel measures 4.5 cm in AP dimension and this is not significantly changed since the previous study. It could represent an partial small bowel obstruction and continued follow-up is recommended to exclude an obstruction. A right side up decubitus view or upright images recommended to evaluate for air-fluid levels.A small amount of stool is noted within the rectum/colon. There is no evidence of free air on this supine radiograph.IMPRESSION: Dilated air-filled loops of small bowel are noted measuring up to 4.5 cm with nondilated air-filled and contrast-filled of large bowel visualized. Findings are suggestive of at least partial small bowel obstruction.This document has been electronically signed by Vivian Norris MD on 01/04/2020 5:18 PM Name Value Range Interpretation Code Description Data [place] rce(s) Supporting Document(s) ID Date Data Source [id number] 01/04/2020 02:56:09 PM T [facility] Name Value Range Interpretation Code Description Data [place] rce(s) Supporting Document(s) Albumin [Mass/volume] in Serum or Plasma by Bromocresol green (BCG) dye binding method 2.6 g/dL 3.5-5.2 [facility] Bil[facility].total [Mass/volume] in Serum or Plasma 0.3 mg/dL <1.2 [facility] Calcium [Mass/volume] in Serum or Plasma 8.3 mg/dL 8.8-10.2 L [facility] Chloride [Moles/volume] in Serum or Plasma 105 mmol/L 98-107 [facility] Creatinine [Mass/volume] in Serum or Plasma 0.43 mg/dL 0.50-0.90 L [facility] Glucose [Mass/volume] in Serum or Plasma 96 mg/dL 70-140 [facility] Alkaline phosphatase [Enzymatic activity/volume] in Serum or Plasma 50 U/L 35-104 [facility] Potassium [Moles/volume] in Serum or Plasma 4.4 mmol/L 3.4-5.1 [facility] Protein [Mass/volume] in Serum or Plasma 6.0 g/dL 6.4-8.3 L [facility] Sodium [Moles/volume] in Serum or Plasma 137 mmol/L 136-145 [facility] Aspartate aminotransferase [Enzymatic activity/volume] in Serum or Plasma 19 U/L <32 [facility] Urea nitrogen [Mass/volume] in Serum or Plasma 10 mg/dL 8-23 [facility] Osmolality of Serum or Plasma by calculation 283 mosm/kg 275-300 [facility] Creatinine/Urea nitrogen [Mass Ratio] in Serum or Plasma 22 [facility] Bicarbonate [Moles/volume] in Serum 25 mmol/L 22-29 [facility] Alanine aminotransferase [Enzymatic activity/volume] in Seru m or Plasma 6 U/L <33 [facility] Anion gap 3 in Serum or Plasma 8 mmol/L 8-15 [facility] Glomerular filtration rate/1.73 sq M pre dicted among non-blacks [Volume Rate/Area] in Serum or Plasma by Creatinine-based formula (MDRD) >6 0 [facility] Glomerular filtration rate/1.73 sq M pre dicted among blacks [Volume Rate/Area] in Serum or Plasma by Creatinine-based formula (MDRD) >60 [facility] ID Date Data Source [id number] 01/04/2020 12:29:34 PM EDT [facility] Value Range Interpretation Code Description Data [place] rce(s) Supporting Document(s) Glucose [Mass/volume] in Capillary blood by Glucometer 101 mg/dL 70- 140 [facility] ID Date Data Source [id number] 01/04/2020 08:48:39 AM EDT [facility] Value Range Interpretation Code Description Data [place] rce(s) Supporting Document(s) Glucose [Mass/volume] in Capillary blood by Glucometer 107 mg/dL 70- 140 [facility] ID Date Data Source [id number] 01/04/2020 04:58:32 AM EDT [facility] Value Range Interpretation Code Description Data [place] rce(s) Supporting Document(s) Magnesium [Mass/volume] in Serum or Plasma 2.1 mg/dL 1.6-2.4 [facility] ID Date Data Source [id number] 01/04/2020 04:58:32 AM EDT [facility] Value Range Interpretation Code Description Data [place] rce(s) Supporting Document(s) Bicarbonate [Moles/volume] in Serum 27 mmol/L 22-29 [facility] Chloride [Moles/volume] in Serum or Plasma 104 mmol/L 98-107 [facility] Creatinine [Mass/volume] in Serum or Plasma 0.38 mg/dL 0.50-0.90 L [facility] Glucose [Mass/volume] in Serum or Plasma 82 mg/dL 70-140 [facility] Potassium [Moles/volume] in Serum or Plasma 3.8 mmol/L 3.4-5.1 [facility] Sodium [Moles/volume] in Serum or Plasma 139 mmol/L 136-145 [facility] Urea nitrogen [Mass/volume] in Serum or Plasma 7 mg/dL 8-23 L [facility] Anion gap 3 in Serum or Plasma 8 mmol/L 8-15 [facility] Osmolality of Serum or Plasma by calculation 285 mosm/kg 275-300 [facility] Creatinine/Urea nitrogen [Mass Ratio] in Serum or Plasma 18 [facility] Calcium [Mass/volume] in Serum or Plasma 7.6 mg/dL 8.8-10.2 L [facility] Glomerular filtration rate/1.73 sq M pre dicted among non-blacks [Volume Rate/Area] in Serum or Plasma by Creatinine-based formula (MDRD) >6 0 [facility] Glomerular filtration rate/1.73 sq M pre dicted among blacks [Volume Rate/Area] in Serum or Plasma by Creatinine-based formula (MDRD) >60 [facility] ID Date Data Source [id number] 01/04/2020 04:58:32 AM EDT [facility] Value Range Interpretation Code Description Data [place] rce(s) Supporting Document(s) Phosphate [Mass/volume] in Serum or Plasma 2.5 mg/dL 2.5-4.5 [facility] ID Date Data Source [id number] 01/04/2020 04:58:32 AM EDT [facility] Value Range Interpretation Code Description Data [place] rce(s) Supporting Document(s) Triglyceride [Mass/volume] in Serum or Plasma 165 mg/dL <150 H [facility] ID Date Data Source [id number] [facility]/04/2020 10:44:[facility] Interpret[facility] Code Description Data [place] rce(s) Supporting Document(s) Leukocytes [#/volume] in Blood by Automated count 12.5 10*3/uL 4-10 H [facility] Erythrocytes [#/volume] in Blood by Automated count 3.84 10*6/uL 4.1- 5.3 L [facility] Hemoglobin [Mass/volume] in Blood 11.3 g/dL 11.5-15.5 [facility] Hematocrit [Volume Fraction] of Blood by Automated count 35.0 % 3 6-45 L [facility] Erythrocyte mean corpuscular volume [Entitic volume] by Auto mated count 91.1 fL 80-96 [facility] Erythrocyte mean corpuscular hemoglobin [Entitic mass] by Automated count 29.4 pg 27-33 [facility] Erythrocyte mean corpuscular hemoglobin concentration [Mass/volume] by Automated count 32.3 g/dL 32.0-36.0 [facility] width [Ratio] by Automated count 16.6 % 11.5-14.5 H [facility] Platelets [#/volume] in Blood by Automated count 537 10*3/uL 150-400 [facility] Differential cell count method - Blood [facility] Neutrophils/100 leukocytes in Blood by Automated count 86 % [facility] Lymphocytes/100 leukocytes in Blood by Automated count 5 % [facility] Monocytes/100 leukocytes in Blood by Automated count 5 % [facility] Neutrophils [#/volume] in Blood by Automated count 10.86 10*3/uL 1.8- 7.0 H [facility] Lymphocytes [#/volume] in Blood by Automated count 0.59 10*3/uL 1.2-4 .0 L [facility] Monocytes [#/volume] in Blood by Automated count 0.59 10*3/uL 0-0.8 [facility] Variant lymphocytes/100 leukocytes in Blood by Manual count 1 % [facility] Metamyelocytes/100 leukocytes in Blood by Manual count 3 % [facility] Lymphocytes [#/volume] in Blood 0.11 10*3/uL 0 H [facility] Metamyelocytes [#/volume] in Blood by Manual count 0.35 10*3/uL 0-0 [facility] ID Date Data Source [id number] 01/04/2020 04:41:35 AM EDT [facility] Name Value Range Interpretation Code Description Data [place] rce(s) Supporting Document(s) Calcium.ionized [Moles/volume] in Arterial blood 1.15 mmol/L 1.13-1.3 2 [facility] ID Date Data Source [id number] 01/04/2020 01:25:46 AM EDT [facility] Name Value Range Interpretation Code Description Data [place] rce(s) Supporting Document(s) Glucose [Mass/volume] in Capillary blood by Glucometer 94 mg/dL 70- 140 [facility] ID Date Data Source [id number] 01/03/2020 06:39:10 PM EDT [facility] Name Value Range Interpretation Code Description Data [place] rce(s) Supporting Document(s) [facility] CQFFXk8rXmZNHkCo88/NHUovLEIlm4PsUGgfFIy5EGesRUHxG2PpQUR4sT6nHCP1DCsBIkGiNeOxQUM4 lbm [file] +AMqlwYqVqyalxzFwe4OsumMm6RofuMLmUo/OM/+[employer] [file] ICAgICAgICAgICAgICAgICAgICAgICAgICAgICAgICAgICAgICAgICAgICAgICAgICAgICAgICAgICAg ICAgICAgICAgICAgICAgICAgDQogICAgICAgICAgIC AgICAgICAgICAgICAgICAgICAgICAgICAgICAgICAgICAgICAgICAgICAgICAgICAgICAgICAgICAgIC AgICAgICAgICAgICAgICAgICAgICAgICAgICAgDQogICAgICAgICAgICAgICAgICAgICAgICAgICAgIC AgICAgICAgICAgICAgICAgICAgICAgICAgICAgICAg ICAgICAgICAgICAgICAgICAgICAgICAgICAgICAgICAgICAgICAgDQogICAgICAgICAgICAgICAgICAg ICAgICAgICAgICAgICAgICAgICAgICAgICAgICAgICAgICAgICAgICAgICAgICAgICAgICAgICAgICAg ICAgICAgICAgICAgICAgICAgICAgDQogICAgICAgIC AgICAgICAgICAgICAgICAgICAgICAgICAgICAgICAgICAgICAgICAgICAgICAgICAgICAgICAgICAgIC AgICAgICAgICAgICAgICAgICAgICAgICAgICAgICAgDQogICAgICAgICAgICAgICAgICAgICAgICAgIC AgICAgICAgICAgICAgICAgICAgICAgICAgICAgICAg ICAgICAgICAgICAgICAgICAgICAgICAgICAgICAgICAgICAgICAgICAgDQogICAgICAgICAgICAgICAg ICAgICAgICAgICAgICAgICAgICAgICAgICAgICAgICAgICAgICAgICAgICAgICAgICAgICAgICAgICAg ICAgICAgICAgICAgICAgICAgICAgICAgDQogICAgIC AgICAgICAgICAgICAgICAgICAgICAgICAgICAgICAgICAgICAgICAgICAgICAgICAgICAgICAgICAgIC AgICAgICAgICAgICAgICAgICAgICAgICAgICAgICAgICAgDQogICAgICAgICAgICAgICAgICAgICAgIC AgICAgICAgICAgICAgICAgICAgICAgICAgICAgICAg ICAgICAgICAgICAgICAgICAgICAgICAgICAgICAgICAgICAgICAgICAgICAgDQogICAgICAgICAgICAg ICAgICAgICAgICAgICAgICAgICAgICAgICAgICAgICAgICAgICAgICAgICAgICAgICAgICAgICAgICAg BVSeBMHpZQBtPGEsWLEuGYSfYXCqSANdBSXqRYs1L7 akYAQrEQQzVE3aABb3Wp8+DBvZXjFnQJL3dvKiyW0PRF2wz3ZjTXuiCJLlz2HuXFe3EL3RNFNhYQetQP 5DBLheyx7NUEPhQRLspBLZr2puAuOfFIM2JKBbTazmHY7FSNTtS9emodLfZRAnKCLCDZfmYTBGRJouYS RQTRYrFXSpAuMnKrRpHUFxBHBoLUYFTT7XPuHkB4Km wL91TGMACm4+RNvdktNcAnqSWaE9JCOeq9GeTXw1LP6YMAAqWsmkt1YkFqBdZFKGPTgbWV4FORS2KMO3 SNWgUw3EGJZxF387mbIlTL1UTe4AXiEeIH0xrv8QKkPdLQToEynMFgm1CBthPV3YuENnNDnFj14giQj0 syTjyZBNFIVaX9vhdodgsQEhyAMeuKprCZ1JDSB9IN ApQnW2GqNyTpEdJHX4OUVsUJ3lNPtzKF3FIWW6DGodMUTeHOOuL1zDOiNrOGLsSfQbmEtbIT6KCkDpV5 BhcmVudCAzNSAwIFINCj4+DNtlaxPwYlyBIcJ2NEHpr4KlYXo2SH8HEVNgWRbdVX4UIHHtuL5qMTgtKW 6EHiHlMgBiKKCQHkOlB79nhCXyZQg2O2ZtFbLbJNZl RmlsZXMgPDwvTmFtZXMgWyBdDQogID4+ID4+JWiuMV6TFYrsdiTjKMGvRy1SUWEtWTInIG8mBMPhGIGg O2V8gXaiXQBZDeNjA2lbzrdqQZ8eXMKaR588rChgdrApOXH9BBXzJa7NYOAaLMI3SLQphADhAdAgNQSR PAovWN8MsIJeEKF6sC6mVUktLKFpOKBjS2dAMoFfyR jfKN25cOwtvwMpsIDiHUs+Lq3MWD8wn4VsGEh1qlOoJYdxUMU3UDuaQJPbZRLuKRZkTPJ7SNC8JTDDGu MrXFDuVLHeDFhzPKMnPJBtvi4ZACKbXMSaPLFtWuPdPQAlLEPiOXgwNOTfYYS6UXb9UONcFKIlJJ8QKq TlHWOsUNWkLTogHZPiUNMyxa6SADBnSIGrPWI5TIQm NIAuKQRzCDneZWGsFYV4FBWqQADlVWJqWI7GEtBqIGIvQWqsVPPnDJEjXAUyvo6EJFPrMOUiYxU2EIKs HJTvVCCfXHtiDZPzPISvUZk2LRNvQFDmSN1ARwAeSNYwVZThHTenMMHiXXBdir3YSEWbOFPvGfl9PhRk QFAxANUxFGuyPMHaRDD5TRDbHUIaDOTuKX1MMlBpTG HdVDq4HPcxKRYdPGOzbn7JBCGfMHWpAqu2MzQqYDTjNCQdWZgoDHItARRqEtM7HYMfBYXbEB7MGtPhYF HmIcY1QtVvUMHsGYTvng2VABWkGCWgAPMiENDkLAIiLJGtEVemZKEnISEoNpBzCMQeCLJdLT0MAhHiNN IeSgF1YIGwFJJqSETrsi8VAYYqXRLbBji9ULTpXHBj MPUcUWdrFNPfYSWaELn3ZHCiGCRsGT6VPhGzXRAdArEnFaAqJSKuQFFaaa6UJEYfQYYhVGSxHDMyXWIk YYOaEHfsNEViRXG0UtXlLBKkILOgXT1RPfPyGFQoUmA0FUGxUHNmUDThmq2ZGSBsDMRgZWd9TICrZKSs MPJnWUggVAYnQXA2JvS9HPZzWCGuEO1OLgRsTZWjFk P1BORmJKIyXFBndq8IEZSpKSRgZnZ3NCSvVSChSCUdGPdeUSMlZJF6BBPfSRIrHGTjQQ5NLrHrEXWnNb d7OHLpZYWiUZFimd8EGLZrFSInPumfNrVwOHTuETCiFIsjFNVzBYT5TKOcVHCqCHZtXW5SJvXrCJLaNp t0XOPwNEHgBGKksg5SWWIpOUX9ZGLyGOGuXZVgIXNs ZOdnQCGcLYHqUVm5HMCcTFJvRF0UQrXrVGEhFDEqLrEnRFVhEFCyyg4LhVXvoCyfeq9DFHwZGc3TyHsu CEI0TXwjPm8jyOOkVlXlPJTXAn4WtjQxTTPiRQUCYMexVKSeWYYaQoSfSWP5RUP0Nva3BTH5KFreLYX2 WRI2Ivf1XSSsTjG2SgRgJZBcDKJpXIEvQCC8AuWyOQ O3EAezHUroPMrkZAC+CW3cZJl+Kz6Ip9QraiB9pqLnOPm3VVK8WH5KDIVQF8SCJb== ID Date Data Source [id number] 01/03/2020 05:41:58 PM [facility] Name Value Range Interpretation Code Description Data [place] rce(s) Supporting Document(s) Glucose [Mass/volume] in Capillary blood by Glucometer 80 mg/dL 70- 140 [facility] ID Date Data Source [id number] 01/03/2020 06:11:41 PM T [facility] Name Value Range Interpretation Code Description Data [place] rce(s) Supporting Document(s) Bicarbonate [Moles/volume] in Serum 26 mmol/L 22-29 [facility] Chloride [Moles/volume] in Serum or Plasma 103 mmol/L 98-107 [facility] Creatinine [Mass/volume] in Serum or Plasma 0.48 mg/dL 0.50-0.90 L [facility] Glucose [Mass/volume] in Serum or Plasma 78 mg/dL 70-140 [facility] Potassium [Moles/volume] in Serum or Plasma 3.7 mmol/L 3.4-5.1 [facility] Sodium [Moles/volume] in Serum or Plasma 137 mmol/L 136-145 [facility] Urea nitrogen [Mass/volume] in Serum or Plasma 7 mg/dL 8-23 L [facility] Anion gap 3 in Serum or Plasma 8 mmol/L 8-15 [facility] Osmolality of Serum or Plasma by calculation 280 mosm/kg 275-300 [facility] Creatinine/Urea nitrogen [Mass Ratio] in Serum or Plasma 14 [facility] Calcium [Mass/volume] in Serum or Plasma 8.2 mg/dL 8.8-10.2 L [facility] Glomerular filtration rate/1.73 sq M pre dicted among non-blacks [Volume Rate/Area] in Serum or Plasma by Creatinine-based formula (MDRD) >6 0 [facility] Glomerular filtration rate/1.73 sq M pre dicted among blacks [Volume Rate/Area] in Serum or Plasma by Creatinine-based formula (MDRD) >60 [facility] ID Date Data Source [id number] 01/03/2020 01:39:11 PM [facility] CT ABDOMEN PELVIS WITH CONTRAST [id number] RESULTInterpreted by:Ephraim Rainey, MDPROCEDURE INFORMATION: Exam: CT Abdomen And Pelvis With Contrast Exam date and time: 01/03/2020 1:23 PM Age: 74 years old Clinical indication: Salmonella sepsis; Diverticulitis of large intestine with perforation and abscess without bleeding; Altered mental status, unspecified; Condition or disease; Other: Evaluation of intraabdominal abscesses TECHNIQUE: Imaging protocol: Computed tomography of the abdomen and pelvis with intravenous contrast. Radiation optimization: All CT scans at this facility use at least one of these dose optimization techniques: automated exposure control; mA and/or kV adjustment per patient size (includes targeted exams where dose is matched to clinical indication); or iterative reconstruction. Contrast material: OMNI 300; Contrast volume: 100 ml; Contrast route: INTRAVENOUS (IV); Other contrast: Oral, omni 240, 40; COMPARISON: CT ABDOMEN PELVIS WITH CONTRAST [id number] 12/29/2019 4:50 AM FI NDINGS: Tubes, catheters and devices: Enteric feeding tube tip is within the gastric fundus. There is stable positioning of pigtail drainage catheter with tip within the posterior right lower pelvis. There is a 2nd pigtail drainage catheter with the tip within the anterior right portion of the pelvis. There are at least 2 if not 3 loculated fluid collections within the right pelvis anterior to the posterior approach drainage catheter larger collection measures approximately 3.4 cm , probably interconnected. Pleural space: There is stable small right pleural effusion. Liver: There are several small hepatic cysts. Gallbladder and bile ducts: Normal. No calcified stones. No ductal dilation. Pancreas: Normal. No ductal dilation. Spleen: Normal. No splenomegaly. Adrenals: Normal. No mass. Kidneys and ureters: There is small simple right renal cyst. Stomach and bowel: There is diverticulosis of the colon without evidence of diverticulitis. No dilation.There is no evidence of intestinal obstruction. Appe ndix: No evidence of appendicitis. Intraperitoneal space: There is loculated fluid collection within the anterior portion of the pelvis measuring approximately 5.3 x 1.9 cm with an adjacent smaller likely interconnected collection within the right upper anterior pelvis. This collection is decreased in size since prior study. See above.Vasculature: There are coronary arterial calcifications. An inferior vena cava filter lies in appropriate position. The distal aorta is mildly ectatic. Lymph nodes: Unremarkable. No enlarged lymph nodes. Urinary bladder: Unremarkable as visualized. Reproductive: There are bilateral cystic adnexal changes within both left and right adnexa. Bones/joints: There is scoliosis. Soft tissues: Unremarkable. Other findings: There are stable consolidations posteriorly within the lower lobes larger on the right with some air bronchograms. A small amount of edema noted within the posterior pelvis. IMPRESSION: 1. Interval decreased size of the loculated fluid collection within the anterior pelvis which is adjacent to the drainage catheter. Lateral to this collection there is a 2nd smaller loculated fluid collection may be interconnected. The pelvic drainage catheter is located posterior to loculated fluid within the right adnexal region and is likely beyond the reach of this drainage catheter. This 2nd smaller pelvic fluid collection is not significantly changed in size. 2. Stable lower lung findings. THIS DOCUMENT HAS BEEN ELECTRONICALLY SIGNED BY EPHRAIM RAINEY MDThis document has been electronically signed by Ephraim Rainey MD on 01/03/2020 1:39 PM Name Value Range Interpretation Code Description Data [place] rce(s) Supporting Document(s) ID Date Data Source [id number] 01/03/2020 12:34:06 PM [facility] Value Range Interpretation Code Description Data [place] rce(s) Supporting Document(s) Glucose [Mass/volume] in Capillary blood by Glucometer 88 mg/dL 70- 140 [facility] ID Date Data Source [id number] 01/03/2020 09:06:01 AM [facility] Value Range Interpretation Code Description Data [place] rce(s) Supporting Document(s) Glucose [Mass/volume] in Capillary blood by Glucometer 120 mg/dL 70- 140 [facility] ID Date Data Source [id number] 01/03/2020 06:21:38 AM [facility] Value Range Interpretation Code Description Data [place] rce(s) Supporting Document(s) Glucose [Mass/volume] in Capillary blood by Glucometer 125 mg/dL 70- 140 [facility] ID Date Data Source [id number] 01/03/2020 04:54:35 AM [facility] Value Range Interpretation Code Description Data [place] rce(s) Supporting Document(s) Leukocytes [#/volume] in Blood by Automated count 11.8 10*3/uL 4-10 H [facility] Erythrocytes [#/volume] in Blood by Automated count 3.98 10*6/uL 4.1- 5.3 L [facility] Hemoglobin [Mass/volume] in Blood 11.9 g/dL 11.5-15.5 [facility] Hematocrit [Volume Fraction] of Blood by Automated count 35.8 % 3 6-45 L [facility] Erythrocyte mean corpuscular volume [Entitic volume] by Auto mated count 89.8 fL 80-96 [facility] Erythrocyte mean corpuscular hemoglobin [Entitic mass] by Automated count 29.8 pg 27-33 [facility] Erythrocyte mean corpuscular hemoglobin concentration [Mass/volume] by Automated count 33.2 g/dL [facility].0[facility] width [Ratio] by Automated count 16.3 % 11.5-14.5 H [facility] Platelets [#/volume] in Blood by Automated count 536 10*3/uL 150-400 H [facility] Differential cell count method - Blood [facility] Neutrophils/100 leukocytes in Blood by Automated count 84 % [facility] Lymphocytes/100 leukocytes in Blood by Automated count 7 % [facility] Monocytes/100 leukocytes in Blood by Automated count 7 % [facility] Eosinophils/100 leukocytes in Blood by Automated count 1 % [facility] Basophils/100 leukocytes in Blood by Automated count 1 % [facility] Neutrophils [#/volume] in Blood by Automated count 9.92 10*3/uL 1.8-7 .0 H [facility] Lymphocytes [#/volume] in Blood by Automated count 0.80 10*3/uL 1.2-4 .0 L [facility] Monocytes [#/volume] in Blood by Automated count 0.86 10*3/uL 0-0.8 H [facility] Eosinophils [#/volume] in Blood by Automated count 0.10 10*3/uL 0-0.5 [facility] Basophils [#/volume] in Blood by Automated count 0.08 10*3/uL 0-0.2 [facility] Nucleated erythrocytes/100 leukocytes [Ratio] in Blood by Automated count 0 /100{WBCs} 0-0 [facility] ID Date Data Source [id number] 01/03/2020 04:56:14 AM [facility] Value Range Interpretation Code Description Data [place] rce(s) Supporting Document(s) Prothrombin time (PT) 17.3 s 12.5-14.9 [facility] INR in Platelet poor plasma by Coagulation assay 1.39 [facility] Routine intensity oral anticoagulation I NR is typically 2.0-3.0. Target INR must be clinically individualized. ID Date Data Source [id number] 01/03/2020 05:02:57 AM [facility] Value Range Interpretation Code Description Data [place] rce(s) Supporting Document(s) Bicarbonate [Moles/volume] in Serum 28 mmol/L 22-29 [facility] Chloride [Moles/volume] in Serum or Plasma 99 mmol/L 98-107 [facility] Creatinine [Mass/volume] in Serum or Plasma 0.56 mg/dL 0.50-0.90 [facility] Glucose [Mass/volume] in Serum or Plasma 118 mg/dL 70-140 [facility] Potassium [Moles/volume] in Serum or Plasma 3.2 mmol/L 3.4-5.1 L [facility] Sodium [Moles/volume] in Serum or Plasma 132 mmol/L 136-145 L [facility] Urea nitrogen [Mass/volume] in Serum or Plasma 9 mg/dL 8-23 [facility] Anion gap 3 in Serum or Plasma 5 mmol/L 8-15 L [facility] Osmolality of Serum or Plasma by calculation 274 mosm/kg 275-300 L [facility] Creatinine/Urea nitrogen [Mass Ratio] in Serum or Plasma 16 [facility] Calcium [Mass/volume] in Serum or Plasma 8.6 mg/dL 8.8-10.2 L [facility] Glomerular filtration rate/1.73 sq M pre dicted among non-blacks [Volume Rate/Area] in Serum or Plasma by Creatinine-based formula (MDRD) >6 0 [facility] Glomerular filtration rate/1.73 sq M pre dicted among blacks [Volume Rate/Area] in Serum or Plasma by Creatinine-based formula (MDRD) >60 [facility] ID Date Data Source [id number] 01/02/2020 11:55:59 PM [facility] Name Value Range Interpretation Code Description Data [place] rce(s) Supporting Document(s) Glucose [Mass/volume] in Capillary blood by Glucometer 97 mg/dL 70- 140 [facility] ID Date Data Source [id number] 01/02/2020 08:53:35 PM T [facility] Value Range Interpretation Code Description Data [place] rce(s) Supporting Document(s) Glucose [Mass/volume] in Capillary blood by Glucometer 106 mg/dL 70- 140 [facility] ID Date Data Source [id number] 01/02/2020 05:55:58 PM [facility] Value Range Interpretation Code Description Data [place] rce(s) Supporting Document(s) Glucose [Mass/volume] in Capillary blood by Glucometer 92 mg/dL 70- 140 [facility] ID Date Data Source [id number] 01/02/2020 04:07:21 PM [facility] Name Value Range Interpretation Code Description Data [place] rce(s) Supporting Document(s) Glucose [Mass/volume] in Capillary blood by Glucometer 85 mg/dL 70- 140 [facility] ID Date Data Source [id number] 01/02/2020 02:56:21 PM [facility] Name Value Range Interpretation Code Description Data [place] rce(s) Supporting Document(s) Glucose [Mass/volume] in Capillary blood by Glucometer 87 mg/dL 70- 140 [facility] ID Date Data Source [id number] 01/02/2020 01:49:30 PM [facility] Name Value Range Interpretation Code Description Data [place] rce(s) Supporting Document(s) Glucose [Mass/volume] in Capillary blood by Glucometer 105 mg/dL 70- 140 [facility] ID Date Data Source [id number] 01/02/2020 01:29:28 PM [facility] Value Range Interpretation Code Description Data [place] rce(s) Supporting Document(s) Glucose [Mass/volume] in Capillary blood by Glucometer 117 mg/dL 70- 140 [facility] ID Date Data Source [id number] 01/02/2020 12:57:36 PM [facility] Value Range Interpretation Code Description Data [place] rce(s) Supporting Document(s) Glucose [Mass/volume] in Capillary blood by Glucometer 62 mg/dL 70- 140 [facility] ID Date Data Source [id number] 01/02/2020 08:45:34 AM [facility] XR ABDOMEN AP ABD SUPINE ONLY [id number] RESULTInterpreted by:Mauri King, MDPROCEDURE INFORMATION: Exam: XR Abdomen, 1 View Exam date and time: 01/02/2020 8:32 AM Age: 74 years old Clinical indication: Salmonella sepsis; Diverticulitis of large intestine with perforation and abscess without bleeding; Altered mental status, unspecified; Other: Evaluate for obsruction TECHNIQUE: Imaging protocol: XR of the abdomen. Views: Frontal supine view of the abdomen. 1 View. COMPARISON: DX XR ABDOMEN AP ABD SUPINE ONLY [id number] PORTABLE 01/01/2020 7:28 PM FINDINGS: Tubes, catheters and devices: A nasogastric tube lies with its tip in the stomach. Gastrointestinal tract: Contrast noted throughout the colon. Dilated small bowel measuring up to 4.9 cm within the central abdomen worrisome for partial small bowel obstruction. Intraperitoneal space: Drains are seen within the pelvis. Vertical radiolucency noted within the pelvisVasculature: IVC filter at the L1 level. Bones/joints: Unremarkable. IMPRESSION: Dilated small bowel measuring up to 4.9 cm within the central abdomen worrisome for partial small bowel obstruction. THIS DOCUMENT HAS BEEN ELECTRONICALLY SIGNED BY MAURI KING MDThis document has been electronically signed by Mauri King MD on 01/02/2020 8:45 AM Name Value Range Interpretation Code Description Data [place] rce(s) Supporting Document(s) ID Date Data Source [id number] 01/02/2020 05:49:08 AM [facility] Name Value Range Interpretation Code Description Data [facility] rce(s) Supporting Document(s) Leukocytes [#/volume] in Blood by Automated count 13.6 10*3/uL 4-10 H [facility] Erythrocytes [#/volume] in Blood by Automated count 3.93 10*6/uL 4.1- 5.3 L [facility] Hemoglobin [Mass/volume] in Blood 11.5 g/dL 11.5-15.5 [facility] Hematocrit [Volume Fraction] of Blood by Automated count 35.6 % 3 6-45 L [facility] Erythrocyte mean corpuscular volume [Entitic volume] by Auto mated count 90.7 fL 80-96 [facility] Erythrocyte mean corpuscular hemoglobin [Entitic mass] by Automated count 29.4 pg 27-33 [facility] Erythrocyte mean corpuscular hemoglobin concentration [Mass/volume] by Automated count 32.4 g/dL 32.0-36.0 [facility] width [Ratio] by Automated count 16.4 % 11.5-14.5 H [facility] Platelets [#/volume] in Blood by Automated count 484 10*3/uL 150-400 H [facility] Differential cell count method - Blood [facility] Neutrophils/100 leukocytes in Blood by Automated count 87 % [facility] Lymphocytes/100 leukocytes in Blood by Automated count 7 % [facility] Monocytes/100 leukocytes in Blood by Automated count 5 % [facility] Eosinophils/100 leukocytes in Blood by Automated count 1 % [facility] Basophils/100 leukocytes in Blood by Automated count 0 % [facility] Neutrophils [#/volume] in Blood by Automated count 11.91 10*3/uL 1.8- 7.0 H [facility] Lymphocytes [#/volume] in Blood by Automated count 0.89 10*3/uL 1.2-4 .0 L [facility] Monocytes [#/volume] in Blood by Automated count 0.71 10*3/uL 0-0.8 [facility] Eosinophils [#/volume] in Blood by Automated count 0.08 10*3/uL 0-0.5 [facility] Basophils [#/volume] in Blood by Automated count 0.05 10*3/uL 0-0.2 [facility] Nucleated erythrocytes/100 leukocytes [Ratio] in Blood by Automated count 0 /100{WBCs} 0-0 [facility] ID Date Data Source [id number] 01/02/2020 06:05:20 AM T [facility] Name Value Range Interpretation Code Description Data [place] rce(s) Supporting Document(s) Bicarbonate [Moles/volume] in Serum 26 mmol/L 22-29 [facility] Chloride [Moles/volume] in Serum or Plasma 99 mmol/L 98-107 [facility] Creatinine [Mass/volume] in Serum or Plasma 0.46 mg/dL 0.50-0.90 [facility] Glucose [Mass/volume] in Serum or Plasma 64 mg/dL 70-140 [facility] Potassium [Moles/volume] in Serum or Plasma 3.9 mmol/L 3.4-5.1 [facility] Sodium [Moles/volume] in Serum or Plasma 134 mmol/L 136-145 [facility] Urea nitrogen [Mass/volume] in Serum or Plasma 6 mg/dL 8-23 [facility] Anion gap 3 in Serum or Plasma 9 mmol/L 8-15 [facility] Osmolality of Serum or Plasma by calculation 274 mosm/kg 275-300 [facility] Creatinine/Urea nitrogen [Mass Ratio] in Serum or Plasma 13 [facility] Calcium [Mass/volume] in Serum or Plasma 8.0 mg/dL 8.8-10.2 [facility] Glomerular filtration rate/1.73 sq M pre dicted among non-blacks [Volume Rate/Area] in Serum or Plasma by Creatinine-based formula (MDRD) >6 0 [facility] Glomerular filtration rate/1.73 sq M pre dicted among blacks [Volume Rate/Area] in Serum or Plasma by Creatinine-based formula (MDRD) >60 [facility] ID Date Data Source [id number] 01/01/2020 08:18:48 PM EDT [facility] XR ABDOMEN AP ABD SUPINE ONLY [id number] RESULTInterpreted by:DEONDRE LevyPROCEDURE INFORMATION: Exam: XR Abdomen, 1 View Exam date and time: 01/01/2020 7:35 PM Age: 74 years old Clinical indication: Salmonella sepsis; Diverticulitis of large intestine with perforation and abscess without bleeding; Altered mental status, unspecified; Other: Po contrast follow through eval TECHNIQUE: Imaging protocol: XR of the abdomen. Views: Frontal supine view of the abdomen. 1 View. COMPARISON: DX FLUORO SMALL BOWEL SERIES SINGLE CONTRAST STUDY [id number] 12/31/2019 8:14 AM FINDINGS: Tubes, catheters and devices: Catheters noted in the pelvis. Gastrointestinal tract: Enteric contrast noted in the ascending and transverse colon up to the level of splenic flexure. Distended gas-filled segments of bowel in the mid abdomen.Vasculature: IVC filter. NG tube terminates in the stomach. Bones/joints: Scoliosis. Spondylosis. IMPRESSION: Enteric contrast noted in the ascending and transverse colon up to the level of splenic flexure. THIS DOCUMENT HAS BEEN ELECTRONICALLY SIGNED BY BERTA TOM MDThis document has been electronically signed by DEONDRE Levy on 01/01/2020 8:18 PM Name Value Range Interpretation Code Description Data [place] rce(s) Supporting Document(s) ID Date Data Source [id number] 01/01/2020 07:17:59 PM EDT [facility] FLUORO SMALL BOWEL SERIES SINGLE CONTRAS T STUDY [id number] RESULTInterpreted by:ÁNGEL BallLINICAL HISTORY: History of diverticulitis with intra- abdominal abscesses. Therapeutic small bowel series requested by Dr. Cotton with Omnipaque 240 oral contrast (since we don't have Gastrografin here) to attempt to stimulate small bowel activity and relieve the patient's small bowel dilation based on his past experience using Gastrografin with other patients.COMPARISON: 12/26/2019 and 12/28/2019 abdominal x-rays. 12/29/2019 CT abdomen and pelvis.TECHNIQUE: Limited overhead supine views of the abdomen were obtained over 22 hours following the uneventful administration of 120 cc of Omnipaque 240 oral contrast through the patient's NG tube (this was the maximum dose which the patient was able to tolerate at the time of exam).FINDINGS: The [employer] image shows multiple parallel horizontal dilated small bowel loops measuring up to 5.6 cm in caliber (previously 5.0 cm). There is no gross free air seen; free air cannot entirely be excluded on a strictly supine exam. There is little intraluminal stool or gas seen within the nondilated colon. There is a small amount of intraluminal stool and bowel gas within the rectum. The NG tube and sidehole lie within the gastric lumen. An IVC filter overlies the right aspect of the spine with the tip at the level of L1-L2. There are 2 percutaneous drains with coiled tips within the right and left aspects of the pelvis. The right hemidiaphragm remains elevated. No new unexpected calcifications are seen. There are osseous degenerative changes with thoracolumbar scoliosis.Horizontal dilated small bowel loops appear similar to the [employer] specials image through 5.5 hours and measure up to 5.5 cm in caliber as contrast coats the lining of the proximal and mid small bowel. No fold thickening, stricture, diverticulum, abnormal loop separation or gross extravasation seen. Oral is present within the terminal ileum, appendix and colon after 22 hours, and at this point, most small bowel loops have decreased in caliber ranging between 2.8 cm and 5.4 cm (proximal). No gross free air or contrast extravasation seen at this point. The terminal ileum measures 1.3 cm in caliber, and the fold pattern does not appear grossly thickened. Small amount of gas and stool again are present within the rectal lumen.IMPRESSION:Limited small bowel series demonstrates a general decrease in t he caliber of most small bowel loops while the proximal small bowel remains dilated to 5.4 cm. Estimated small bowel transit time is about 22 hours.Findings discussed [address] Dr[address] Joslyn Cunha, [facility], 7:00 PM, 01/01/2020.This document has been electronically signed by Maged Mclean MD on 01/01/2020 7:15 PM Name Value Range Interpretation Code Description Data [place] rce(s) Supporting Document(s) ID Date Data Source [id number] 01/01/2020 05:38:22 PM EDT [facility] Name Value Range Interpretation Code Description Data [place] rce(s) Supporting Document(s) Glucose [Mass/volume] in Capillary blood by Glucometer 83 mg/dL 70- 140 [facility] ID Date Data Source [id number] 01/01/2020 04:22:29 PM EDT [facility] TRANSVAGINAL [id number] RESULTInterpr eted by:Vviian Norris MDHISTORY: Evaluation of ovariesTECHNIQUE: Real-time transabdominal and transvaginal sonographic images of the pelvic contents were obtained.FINDINGS: The uterus is anteverted. It is suboptimally visualized and is suboptimally evaluated. It measures 8.2 x 5.2 x 4.6 cm for a calculated volume of 102.9 cc. The endometrial echo complex measures 1.9 cm and is markedly thickened.The right ovary was not visualized. The left ovary measures 4.1 x 2.9 x 3.6 cm for a calculated volume of 22.6 cc. It contains cystic areas measuring 2 x 1.3 x 2.3 cm and 2.4 x 1.8 x 2.4 cmThere was no fluid in the cul-de-sac.IMPRESSION:Limited study.Marked thickening of the endometrium and cystic changes on the left ovary. Recommend further evaluation with an MRI with and without contrast. Cannot exclude a submucosal fibroid, endometrial polyp or a malignancy.Right ovary not visualized.This document has been electronically signed by Vivian Norris MD on 01/01/2020 4:20 PM Name Value Range Interpretation Code Description Data [place] rce(s) Supporting Document(s) ID Date Data Source [id number] 01/01/2020 03:02:52 PM EDT [facility] Name Value Range Interpretation Code Description Data [place] rce(s) Supporting Document(s) [facility] DRIFYa2xVdSGTwSx46/IKVpiFZVpl7BgMMgaURn7EJnvVORpP1NrPNA1bJ4eBUW3QKhIPoKlVmLpCKKj [facility] [file] ICAgICAgICAgICAgICAgICAgICAgICAgICAgICAgICAgICAgICAgICAgICAgICAgICAgICAgICAgICAg ICAgICAgDQogICAgICAgICAgICAgICAgICAgICAgIC AgICAgICAgICAgICAgICAgICAgICAgICAgICAgICAgICAgICAgICAgICAgICAgICAgICAgICAgICAgIC AgICAgICAgICAgICAgICAgDQogICAgICAgICAgICAgICAgICAgICAgICAgICAgICAgICAgICAgICAgIC AgICAgICAgICAgICAgICAgICAgICAgICAgICAgICAg ICAgICAgICAgICAgICAgICAgICAgICAgICAgDQogICAgICAgICAgICAgICAgICAgICAgICAgICAgICAg ICAgICAgICAgICAgICAgICAgICAgICAgICAgICAgICAgICAgICAgICAgICAgICAgICAgICAgICAgICAg ICAgICAgICAgDQogICAgICAgICAgICAgICAgICAgIC AgICAgICAgICAgICAgICAgICAgICAgICAgICAgICAgICAgICAgICAgICAgICAgICAgICAgICAgICAgIC AgICAgICAgICAgICAgICAgICAgDQogICAgICAgICAgICAgICAgICAgICAgICAgICAgICAgICAgICAgIC AgICAgICAgICAgICAgICAgICAgICAgICAgICAgICAg ICAgICAgICAgICAgICAgICAgICAgICAgICAgICAgDQogICAgICAgICAgICAgICAgICAgICAgICAgICAg ICAgICAgICAgICAgICAgICAgICAgICAgICAgICAgICAgICAgICAgICAgICAgICAgICAgICAgICAgICAg ICAgICAgICAgICAgDQogICAgICAgICAgICAgICAgIC AgICAgICAgICAgICAgICAgICAgICAgICAgICAgICAgICAgICAgICAgICAgICAgICAgICAgICAgICAgIC AgICAgICAgICAgICAgICAgICAgICAgDQogICAgICAgICAgICAgICAgICAgICAgICAgICAgICAgICAgIC AgICAgICAgICAgICAgICAgICAgICAgICAgICAgICAg ICAgICAgICAgICAgICAgICAgICAgICAgICAgICAgICAgDQogICAgICAgICAgICAgICAgICAgICAgICAg ICAgICAgICAgICAgICAgICAgICAgICAgICAgICAgICAgICAgICAgICAgICAgICAgICAgICAgICAgICAg HLNcCOOiZFZxTOJnACKnKNl7T5ndIJIqBLClCP6yRR d3Jz8+FLkAWqQlFBE0bqEfvG1DMC4rm7RaIVpsLDGae3QmTIn6UE7XUTTvYXzsEU2DFOtzlt8SWRGuOO AhjCBRp2xzZeIyFUN9WQFoLyrtXE6AGTIpR6sbdhTcPDVaVFXUIYjoDGHDTRdqLRBAFJWvWZDhEhLsRF pjUS6Wa2LjrQM3XRp+My5KNK3qk0OvCYfeOJByPW7x us0ZJObIPnUkS2VtwgH1QJLaYQOzJi3MLRPwZJXqxHSiYmEgHRIMRnTjQ4QnuC71DXJMOb5+DQplbmRv HttKKiQcDHGwn1ZkFSi8AH5EXUTnWXy6gDCnV60rr8WjfCIcKsxgH7L8zQNcrO6fDHXsOgDiI6JpUD4M ERV7ZMInVnNxQcLpPdNbOFZ2LjUhCC4rPWigBY9DKZ G9GAaqAJLiXQPcD8mMXuBhECWxSjJnnXurES5UIrZdR1BhqhJcvHDhBNOnKMISGy6+DQplbmRvYmoNCj QyVJLvv9ZcUFq6GN4GMYQjNCvcFY8AKCCwxC9hUFscQI5UNtFxBSFwCWITPxScZ77iaCGdCNc4X9CiKp VkZGVkRmlsZXMgPDwvTmFtZXMgWyBdDQogID4+ID4+ ZMiqLN9GUSvbawCjGVBtQs2ANBVjLISaUE4oMPZkSLLoE2B3uFliLGSGUePyX3yokzizRC1eYUXrH558 uXjeeyAdBWOrYJUbYz6PGTLyTZQ6MMNspMHcDyLqUDNURDdsPD7OkRHjXXO6lF5eXVsdHFAnDZHvC0jS SnFmnGofOL44cBvgvdDrtNIgKBu+Aq1YER4it0GrFG d6yxHhSCwiKHF5OCcxRQJhVIJaANKaKXB4VRH0AUAXEuTfQTYxCDBwEPzoJRRnVFCxqy9JQXFeNFOpHO QwOHZgGXPuTQRpXOmbWZUhULDxJkpvFWUwCQGfTN6AJiAkAVBfHYUpHRsiSGFiVMPyab9WYOQgAQSgOv OyFDPmENRvYMOzRWabJSGcRTFhCJC0OTToCSPqRR4L ObLxLYAdPDBhUkHnSJGbLNIrxg6TLSNxJCZrPtT4CQZkQHElGKYcAYadGFAtJRC0RAa4ZMMzLPNqFV6Y GzFuTAKhWZEzLUIkAQXcCBHkmn5QBHPiJUWpYCW2CgIyBBAaNSLcIZdfFTJbGIHsIewcEGOwHNCnWX5Z KuGbBTPbKLJySeVgJSJvRZTajm8TZNMiVQCvHaInZQ LgXKDsTXXqFHkqFEWlAJCkJkYmCFHpDTEvAA8ODjBpLVRyVQD1ZyNbUJOcDSUqvg2EXDLrANJdHkl9RW LsZCZtMTPzVIrbOVLtQUS2KTGhOXHxVDAiXS5ISuVxLPNnBKTbSqPyVFIfXERult1CUUFoLYZjFKLoPD AgDUXuNNGpSShwRNUyNSX6MELdWKOfTWXjST6HPsHf HYEjEfX8DIrgVSMjLUZiso1GLDEnGIEqHmFfFLFgZVWzSFRgPBryMJTnTNS7FgG4QEJaUBDwAS0TLyXp SFAnBsl8FDOqBDVqEUQuwo1IQDZdIQMaDbT0BYHjUVOaIVSeHOnxEHZvZXF6IyAzYJCgOHTwIK3FZmTn CDSyVfj8XnCxUFPfRLEhwb7MCVZwEDTvSCMsGLGlVC JcSBBxVTwlOGLmZLG2DVLgDJRoFUDjJC9TOsQcTTTeJzE5GMnxXDMiBTHyrd1QKLBxGCFxHZt3NXCqVW EeTBNxIKddRGVfAGAhCEU6PWAhZICpQJ5MDhBpRNwjMQFIPtc5JBkhT5i1EJUaER7VD8Hcm7YxBdObVV AKZFvdMF2pziYyHTJbMn2SK3rCCislTqXsDgFbOOw7 XMBuTmY2GJU2JXVdVhihKFK3NjQdTp1rLFUpU1RpXiA6HUztFCOnRkasRjS0UJI1JVL1AYfsExBnCcNk ZS5HSi9TSdK3CVV4sTMfHc3NDtRvVbZXBuRwWI3OOLp= ID Date Data Source [id number] [facility] Value Range Interpretation Code Description Data [place] rce(s) Supporting Document(s) Glucose [Mass/volume] in Capillary blood by Glucometer 96 mg/dL 70- 140 [facility] ID Date Data Source [id number] 01/01/2020 09:08:13 AM [facility] Value Range Interpretation Code Description Data [place] rce(s) Supporting Document(s) Glucose [Mass/volume] in Capillary blood by Glucometer 121 mg/dL 70- 140 [facility] ID Date Data Source [id number] 01/01/2020 04:08:44 AM [facility] Value Range Interpretation Code Description Data [place] rce(s) Supporting Document(s) Bicarbonate [Moles/volume] in Serum 27 mmol/L 22-29 [facility] Chloride [Moles/volume] in Serum or Plasma 104 mmol/L 98-107 [facility] Creatinine [Mass/volume] in Serum or Plasma 0.54 mg/dL 0.50-0.90 [facility] Glucose [Mass/volume] in Serum or Plasma 109 mg/dL 70-140 [facility] Potassium [Moles/volume] in Serum or Plasma 4.1 mmol/L 3.4-5.1 [facility] Sodium [Moles/volume] in Serum or Plasma 137 mmol/L 136-145 [facility] Urea nitrogen [Mass/volume] in Serum or Plasma 4 mg/dL 8-23 L [facility] Anion gap 3 in Serum or Plasma 6 mmol/L 8-15 L [facility] Osmolality of Serum or Plasma by calculation 281 mosm/kg 275-300 [facility] Creatinine/Urea nitrogen [Mass Ratio] in Serum or Plasma 7 [facility] Calcium [Mass/volume] in Serum or Plasma 8.0 mg/dL 8.8-10.2 L [facility] Glomerular filtration rate/1.73 sq M pre dicted among non-blacks [Volume Rate/Area] in Serum or Plasma by Creatinine-based formula (MDRD) >6 0 [facility] Glomerular filtration rate/1.73 sq M pre dicted among blacks [Volume Rate/Area] in Serum or Plasma by Creatinine-based formula (MDRD) >60 [facility] ID Date Data Source [id number] 01/01/2020 04:08:44 AM [facility] Name Value Range Interpretation Code Description Data [place] rce(s) Supporting Document(s) Magnesium [Mass/volume] in Serum or Plasma 1.8 mg/dL 1.6-2.4 [facility] ID Date Data Source [id number] 01/01/2020 04:08:44 AM [facility] Name Value Range Interpretation Code Description Data [place] rce(s) Supporting Document(s) Phosphate [Mass/volume] in Serum or Plasma 3.0 mg/dL 2.5-4.5 [facility] ID Date Data Source [id number] 01/01/2020 10:32:05 AM [facility] Value Range Interpretation Code Description Data [place] rce(s) Supporting Document(s) Leukocytes [#/volume] in Blood by Automated count 13.8 10*3/uL 4-10 H [facility] Erythrocytes [#/volume] in Blood by Automated count 3.73 10*6/uL 4.1- 5.3 L [facility] Hemoglobin [Mass/volume] in Blood 11.2 g/dL 11.5-15.5 L [facility] Hematocrit [Volume Fraction] of Blood by Automated count 34.0 % 3 6-45 L [facility] Erythrocyte mean corpuscular volume [Entitic volume] by Auto mated count 91.3 fL 80-96 [facility] Erythrocyte mean corpuscular hemoglobin [Entitic mass] by Automated count 29.9 pg 27-33 [facility] Erythrocyte mean corpuscular hemoglobin concentration [Mass/volume] by Automated count 32.8 g/dL 32.0-36.0 [facility] Erythrocyte distribution width [Ratio] by Automated count 16.6 % 11.5-14.5 H [facility] Platelets [#/volume] in Blood by Automated count 500 10*3/uL 150-400 H [facility] Differential cell count method - Blood [facility] Neutrophils/100 leukocytes in Blood by Automated count 91 % [facility] Lymphocytes/100 leukocytes in Blood by Automated count 4 % [facility] Monocytes/100 leukocytes in Blood by Automated count 4 % [facility] Neutrophils [#/volume] in Blood by Automated count 12.65 10*3/uL 1.8- 7.0 H [facility] Lymphocytes [#/volume] in Blood by Automated count 0.51 10*3/uL 1.2-4 .0 L [facility] Monocytes [#/volume] in Blood by Automated count 0.51 10*3/uL 0-0.8 [facility] Myelocytes/100 leukocytes in Blood by Manual count 1 % [facility] Myelocytes [#/volume] in Blood by Manual count 0.12 10*3/uL 0-0 H [facility] Macrocytes [Presence] in Blood by Light microscopy [facility] ID Date Data Source [id number] 12/31/2019 09:57:58 PM [facility] Value Range Interpretation Code Description Data [place] rce(s) Supporting Document(s) Glucose [Mass/volume] in Capillary blood by Glucometer 116 mg/dL 70- 140 [facility] ID Date Data Source [id number] 12/31/2019 09:57:58 PM [facility] Value Range Interpretation Code Description Data [place] rce(s) Supporting Document(s) Glucose [Mass/volume] in Capillary blood by Glucometer 111 mg/dL 70- 140 [facility] ID Date Data Source [id number] 12/31/2019 05:48:27 PM [facility] Value Range Interpretation Code Description Data [place] rce(s) Supporting Document(s) Glucose [Mass/volume] in Capillary blood by Glucometer 125 mg/dL 70- 140 [facility] ID Date Data Source [id number] [facility]46[facility] Value Range Interpretation Code Description Data [place] rce(s) Supporting Document(s) Glucose [Mass/volume] in Capillary blood by Glucometer 121 mg/dL 70- 140 [facility] ID Date Data Source [id number] 01/05/2020 10:06:17 AM [facility] Service Cmnt XXX-Imp : [employer] anism XXX Cult : No growth 5 days Name Value Range Interpretation Code Description Data [place] rce(s) Supporting Document(s) ID Date Data Source [id number] 01/05/2020 10:06:17 AM [facility] Service Cmnt XXX-Imp : [employer] n[employer] XXX Cult : No growth 5 days Name Value Range Interpretation Code Description Data [place] rce(s) Supporting Document(s) ID Date Data Source [id number] 12/31/2019 09:00:22 AM [facility] Name Value Range Interpretation Code Description Data [place] rce(s) Supporting Document(s) Glucose [Mass/volume] in Capillary blood by Glucometer 118 mg/dL 70- 140 [facility] ID Date Data Source [id number] 12/31/2019 04:58:44 AM [facility] Name Value Range Interpretation Code Description Data [place] rce(s) Supporting Document(s) Leukocytes [#/volume] in Blood by Automated count 13.6 10*3/uL 4-10 H [facility] Erythrocytes [#/volume] in Blood by Automated count 3.75 10*6/uL 4.1- 5.3 L [facility] Hemoglobin [Mass/volume] in Blood 11.1 g/dL 11.5-15.5 [facility] Hematocrit [Volume Fraction] of Blood by Automated count 33.9 % 3 6-45 L [facility] Erythrocyte mean corpuscular volume [Entitic volume] by Auto mated count 90.5 fL 80-96 [facility] Erythrocyte mean corpuscular hemoglobin [Entitic mass] by Automated count 29.6 pg 27-33 [facility] Erythrocyte mean corpuscular hemoglobin concentration [Mass/volume] by Automated count 32.7 g/dL 32.0-36.0 [facility] [Ratio] by Automated count 16.7 % 11.5-14.5 H [facility] Platelets [#/volume] in Blood by Automated count 427 10*3/uL 150-400 H [facility] Differential cell count method - Blood [facility] Neutrophils/100 leukocytes in Blood by Automated count 89 % [facility] Lymphocytes/100 leukocytes in Blood by Automated count 7 % [facility] Monocytes/100 leukocytes in Blood by Automated count 4 % [facility] Eosinophils/100 leukocytes in Blood by Automated count 0 % [facility] Basophils/100 leukocytes in Blood by Automated count 0 % [facility] Neutrophils [#/volume] in Blood by Automated count 12.05 10*3/uL 1.8- 7.0 H [facility] Lymphocytes [#/volume] in Blood by Automated count 0.90 10*3/uL 1.2-4 .0 L [facility] Monocytes [#/volume] in Blood by Automated count 0.58 10*3/uL 0-0.8 [facility] Eosinophils [#/volume] in Blood by Automated count 0.04 10*3/uL 0-0.5 [facility] Basophils [#/volume] in Blood by Automated count 0.02 10*3/uL 0-0.2 [facility] Nucleated erythrocytes/100 leukocytes [Ratio] in Blood by Automated count 0 /100{WBCs} 0-0 [facility] ID Date Data Source [id number] 12/31/2019 05:29:19 AM [facility] Name Value Range Interpretation Code Description Data [place] rce(s) Supporting Document(s) Magnesium [Mass/volume] in Serum or Plasma 1.9 mg/dL 1.6-2.4 [facility] ID Date Data Source [id number] 12/31/2019 05:29:19 AM [facility] Name Value Range Interpretation Code Description Data [place] rce(s) Supporting Document(s) Bicarbonate [Moles/volume] in Serum 24 mmol/L -29 [facility] Chloride [Moles/volume] in Serum or Plasma 102 mmol/L 98-107 [facility] Creatinine [Mass/volume] in Serum or Plasma 0.56 mg/dL 0.50-0.90 [facility] Glucose [Mass/volume] in Serum or Plasma 102 mg/dL 70-140 [facility] Potassium [Moles/volume] in Serum or Plasma 5.1 mmol/L 3.4-5.1 [facility] Hemolyzed Sodium [Moles/volume] in Serum or Plasma 135 mmol/L 136-145 L [facility] Urea nitrogen [Mass/volume] in Serum or Plasma 4 mg/dL 8-23 L [facility] Anion gap 3 in Serum or Plasma 9 mmol/L 8-15 [facility] Osmolality of Serum or Plasma by calculation 278 mosm/kg 275-300 [facility] Creatinine/Urea nitrogen [Mass Ratio] in Serum or Plasma 8 [facility] Calcium [Mass/volume] in Serum or Plasma 8.4 mg/dL 8.8-10.2 L [facility] Glomerular filtration rate/1.73 sq M pre dicted among non-blacks [Volume Rate/Area] in Serum or Plasma by Creatinine-based formula (MDRD) >6 0 [facility] Glomerular filtration rate/1.73 sq M pre dicted among blacks [Volume Rate/Area] in Serum or Plasma by Creatinine-based formula (MDRD) >60 [facility] ID Date Data Source [id number] 12/31/2019 05:29:19 AM [facility] Name Value Range Interpretation Code Description Data [place] rce(s) Supporting Document(s) Phosphate [Mass/volume] in Serum or Plasma 3.3 mg/dL 2.5-4.5 [facility] ID Date Data Source [id number] 12/30/2019 09:24:07 PM [facility] Name Value Range Interpretation Code Description Data [place] rce(s) Supporting Document(s) Glucose [Mass/volume] in Capillary blood by Glucometer 143 mg/dL 70- 140 [facility] ID Date Data Source [id number] 12/30/2019 05:25:51 PM [facility] XR CHEST FRONTAL ONLY [id number] RESULTI nterpreted by:Amy Maldonado, MDPROCEDURE INFORMATION: Exam: XR Chest, 1 View Exam date and time: 12/30/2019 5:19 PM Age: 74 years old Clinical indication: Salmonella sepsis; Diverticulitis of large intestine with perforation and abscess without bleeding; Altered mental status, unspecified; Other: Verify position of ng tube TECHNIQUE: Imaging protocol: XR of the chest Views: 1 view. COMPARISON: DX XR CHEST FRONTAL ONLY [id number] PORTABLE 12/28/2019 11:56 PM FINDINGS: Tubes, catheters and devices: Nasogastric tube coursing toward the stomach with the tip not clearly identified. Filter in the inferior vena cava. Pleural space: Increased haziness at the left lung base with indistinctness of the left costophrenic angle. Heart/Mediastinum: Borderline cardiomegaly. Vasculature: Tortuous calcified aorta. Bones/joints: Mild scoliosis and degenerative disease of the thoracic spine. Degenerative disease and rotator cuff injury of both shoulders. Other findings: Patient rotated to the left. IMPRESSION: 1. Nasogastric tube coursing toward the stomach. Tip of the nasogastric tube not clearly identified. 2. Left basilar atelectasis with associated left pleural reaction THIS DOCUMENT HAS BEEN ELECTRONICALLY SIGNED BY AMY MALDONADO MDThis document has been electronically signed by Amy Maldonado MD on 12/30/2019 5:25 PM Name Value Range Interpretation Code Description Data [place] rce(s) Supporting Document(s) ID Date Data Source [id number] 12/30/2019 05:01:22 PM EDT [facility] Name Value Range Interpretation Code Description Data [place] rce(s) Supporting Document(s) Glucose [Mass/volume] in Capillary blood by Glucometer 129 mg/dL 70- 140 [facility] ID Date Data Source [id number] 12/30/2019 04:03:10 PM [facility] MR BRAIN WITH AND WITHOUT CONTRAST [id number] FINAL RESULTInterpreted by:Libby Pete MBBSMR BRAIN WITH AND WITHOUT IV CONTRAST [id number] INDICATION: Colonic diverticulosis with abscess. Altered mental status.COMPARISONS: No prior brain MRI study.TECHNIQUE: Multiplanar and multisequence MR images of the brain were obtained, both before and after the administration of Gadavist IV gadolinium contrast.FINDINGS: There is no evidence of restricted diffusion to suggest acute infarct.No intracranial hemorrhage, extra-axial collection or midline shift is seen. Following the administration of IV contrast, there are no areas of abnormal enhancement. Mild central volume loss of the brain parenchyma with associated dilatation of the ventricular system.Scattered multiple very small, small, and nodular foci and very thin periventricular band of T2 and FLAIR hyperintensity are visualized at the level of the aldridge radiata and centrum semiovale bilaterally, likely secondary to chronic small vessel m icroangiopathic ischemic change. The mesial temporal lobe is symmetrical and unremarkable in signal intensity and configuration bilaterallyThe ventricles, basal cisterns and sulci are normal. No abnormal hemosiderin deposition. No significant congenital anomaly.The pituitary gland is unremarkable with normal posterior bright spot. The corpus callosum is normally formed. No evidence of Chiari I malformation.There is fluid in bilateral mastoid air cells. Paranasal sinuses are clear.IMPRESSION:1. No evidence of acute intracranial pathology.2. Mild underlying chronic microvascular ischemic changes of the white matter.3. Mild central volume loss of brain parenchyma/atrophy.4. Very mild bilateral mastoiditis.This document has been electronically signed by Lizeth Liz MD on 12/30/2019 4:00 PM Name Value Range Interpretation Code Description Data [place] rce(s) Supporting Document(s) ID Date Data Source [id number] 12/30/2019 03:22:10 PM EDT [facility] IR IMAGE GUIDED NEEDLE DRAIN PROCEDUREFI NAL RESULTInterpreted by:Sandra Wilkins MDPROCEDURE: Ultrasound and CT-guided pelvic abscess drain placement.CLINICAL HISTORY:74-year-old female with history of colonic diverticular abscess and enlarging pelvic fluid collection, here image guided drain placement.MODERATE SEDATION: No sedation was provided.Medications: 4 mg IV Zosyn.Automated dose lowering techniques and/or adjustment according to patient size were utilized for this exam. PROCEDURE: The risks and benefits of the procedure were explained to the patient. The patient signed informed consent for the procedure along with moderate sedation. The patient was placed on the CT scan table in a supine position. Localizing images of pelvic abscess was obtained, however, no safe anatomic window was identified. Subsequently, localizing images of the pelvic abscess were obtained utilizing IV contrast, however, no safe anatomical window was identified. After which, a limited preprocedural ultrasound was performed, demonstrating safe anatomic window for appropriate target fluid collection in the pelvis. A suitable site of needle entry was marked on the skin surface. The site was prepped and draped in sterile fashion. 10 cc of 2% lidocaine was given subcutaneously under direct ultrasound guidance. A 10 Fijian resolve was inserted/trocar into the collection under direct ultrasound guidance. The needle was removed and 10 cc purulent fluid was aspirated. This was sent for culture and sensitivity. The [place] loop was formed within the collection. The drain was attached to a accordion drainage bag. It was secured in place with 2-0 silk suture and stay fix sterile dressing. A final set of axial CT images was made through the pelvis, demonstrating appropriate positioning of drain.IMPRESSION: Ultrasound and CT-guided 10 Fijian resolve pelvic drain placement as described above. This document has been electronically signed by Jax Carver MD on 12/30/2019 3:19 PM Name Value Range Interpretation Code Description Data [place] rce(s) Supporting Document(s) ID Date Data Source [id number] 12/30/2019 12:54:55 PM [facility] Name Value Range Interpretation Code Description Data [place] rce(s) Supporting Document(s) Glucose [Mass/volume] in Capillary blood by Glucometer 117 mg/dL 70- 140 [facility] ID Date Data Source [id number] 12/30/2019 04:30:51 AM [facility] Name Value Range Interpretation Code Description Data [place] rce(s) Supporting Document(s) Bicarbonate [Moles/volume] in Serum 26 mmol/L 22-29 [facility] Chloride [Moles/volume] in Serum or Plasma 102 mmol/L 98-107 [facility] Creatinine [Mass/volume] in Serum or Plasma 0.58 mg/dL 0.50-0.90 [facility] Glucose [Mass/volume] in Serum or Plasma 109 mg/dL 70-140 [facility] Potassium [Moles/volume] in Serum or Plasma 4.2 mmol/L 3.4-5.1 [facility] Sodium [Moles/volume] in Serum or Plasma 135 mmol/L 136-145 L [facility] Urea nitrogen [Mass/volume] in Serum or Plasma 6 mg/dL 8-23 L [facility] Anion gap 3 in Serum or Plasma 7 mmol/L 8-15 L [facility] Osmolality of Serum or Plasma by calculation 277 mosm/kg 275-300 [facility] Creatinine/Urea nitrogen [Mass Ratio] in Serum or Plasma 10 [facility] Calcium [Mass/volume] in Serum or Plasma 8.6 mg/dL 8.8-10.2 L [facility] Glomerular filtration rate/1.73 sq M pre dicted among non-blacks [Volume Rate/Area] in Serum or Plasma by Creatinine-based formula (MDRD) 90 mL/min/1.73m2 >60 [facility] Glomerular filtration rate/1.73 sq M pre dicted among blacks [Volume Rate/Area] in Serum or Plasma by Creatinine-based formula (MDRD) >60 [facility] ID Date Data Source [id number] 12/30/2019 06:17:08 AM T [facility] Name Value Range Interpretation Code Description Data [place] rce(s) Supporting Document(s) Leukocytes [#/volume] in Blood by Automated count 15.5 10*3/uL 4-10 H [facility] Erythrocytes [#/volume] in Blood by Automated count 3.59 10*6/uL 4.1- 5.3 L [facility] Hemoglobin [Mass/volume] in Blood 10.8 g/dL 11.5-15.5 L [facility] Hematocrit [Volume Fraction] of Blood by Automated count 32.4 % 3 6-45 L [facility] Erythrocyte mean corpuscular volume [Entitic volume] by Auto mated count 90.5 fL 80-96 [facility] Erythrocyte mean corpuscular hemoglobin [Entitic mass] by Automated count 30.1 pg 27-33 [facility] Erythrocyte mean corpuscular hemoglobin concentration [Mass/volume] by Automated count 33.2 g/dL 32.0-36.0 [facility] width [Ratio] by Automated count 17.1 % 11.5-14.5 H [facility] Platelets [#/volume] in Blood by Automated count 384 10*3/uL 150-400 [facility] Differential cell count method - Blood [facility] Neutrophils/100 leukocytes in Blood by Automated count 91 % [facility] Lymphocytes/100 leukocytes in Blood by Automated count 4 % [facility] Monocytes/100 leukocytes in Blood by Automated count 4 % [facility] Neutrophils [#/volume] in Blood by Automated count 14.20 10*3/uL 1.8- 7.0 H [facility] Lymphocytes [#/volume] in Blood by Automated count 0.57 10*3/uL 1.2-4 .0 L [facility] Monocytes [#/volume] in Blood by Automated count 0.57 10*3/uL 0-0.8 [facility] Variant lymphocytes/100 leukocytes in Blood by Manual count 1 % [facility] Lymphocytes [#/volume] in Blood 0.14 10*3/uL 0 H [facility] Anisocytosis [Presence] in Blood by Light microscopy [facility] ID Date Data Source [id number] 12/30/2019 12:45:24 PM EDT [facility] Name Value Range Interpretation Code Description Data [place] rce(s) Supporting Document(s) Magnesium [Mass/volume] in Serum or Plasma 1.9 mg/dL 1.6-2.4 [facility] ID Date Data Source [id number] 12/30/2019 12:45:24 PM EDT [facility] Name Value Range Interpretation Code Description Data [place] rce(s) Supporting Document(s) Phosphate [Mass/volume] in Serum or Plasma 3.4 mg/dL 2.5-4.5 [facility] ID Date Data Source [id number] 01/02/2020 09:40:01 AM EDT [facility] Service Cmnt XXX-Imp : ABDOMINAL ABSCESS Gram Stn XXX : 4+WBC'S Seen.4+Gram positive cocciin pairs2+Gram positive rods4+Gram negative rodsMicroorganism XXX Cult : One (1) colony ofEscherichia coli3+Actinomyces turicensisOrganism of questionable significance. No further workup of2+Streptococcus gallolyticus ssp pasteurianus Name Value Range Interpretation Code Description Data [place] rce(s) Supporting Document(s) ID Date Data Source [id number] 12/29/2019 02:13:10 PM EDT [facility] Name Value Range Interpretation Code Description Data [place] rce(s) Supporting Document(s) History and Physical [facility] [id number] [facility] [file] [id number]= ID Date Data Source [id number] 12/29/2019 02:40:32 PM EDT [facility] Name Value Range Interpretation Code Description Data [place] rce(s) Supporting Document(s) Prothrombin time (PT) 18.6 s 12.5-14.9 H [facility] INR in Platelet poor plasma by Coagulation assay 1.53 [facility] Routine intensity oral anticoagulation I NR is typically 2.0-3.0. Target INR must be clinically individualized. ID Date Data Source [id number] 12/29/2019 11:16:24 AM EDT [facility] Name Value Range Interpretation Code Description Data [place] rce(s) Supporting Document(s) History and Physical [facility] HKIWYh3lLdXIEbZe16/NADwaRCNxh1DjQQcwKZm0ESwmETVuJ3IxQMN4sB0jDUV7BBaODmMrDhGfDFTr lbm [file] ICAgICAgICAgICAgICAgICAgICAgICAgICAgICAgICAgICAgICAgICAgICAgICAgICAgICAgICAgICAg ICAgICAgICAgICAgICAgICAgICAgICAgICAgICAgIC AgICAgICANCiAgICAgICAgICAgICAgICAgICAgICAgICAgICAgICAgICAgICAgICAgICAgICAgICAgIC AgICAgICAgICAgICAgICAgICAgICAgICAgICAgICAgICAgICAgICAgICAgICAgICANCiAgICAgICAgIC AgICAgICAgICAgICAgICAgICAgICAgICAgICAgICAg ICAgICAgICAgICAgICAgICAgICAgICAgICAgICAgICAgICAgICAgICAgICAgICAgICAgICAgICAgICAN CiAgICAgICAgICAgICAgICAgICAgICAgICAgICAgICAgICAgICAgICAgICAgICAgICAgICAgICAgICAg ICAgICAgICAgICAgICAgICAgICAgICAgICAgICAgIC AgICAgICAgICANCiAgICAgICAgICAgICAgICAgICAgICAgICAgICAgICAgICAgICAgICAgICAgICAgIC AgICAgICAgICAgICAgICAgICAgICAgICAgICAgICAgICAgICAgICAgICAgICAgICAgICANCiAgICAgIC AgICAgICAgICAgICAgICAgICAgICAgICAgICAgICAg ICAgICAgICAgICAgICAgICAgICAgICAgICAgICAgICAgICAgICAgICAgICAgICAgICAgICAgICAgICAg ICANCiAgICAgICAgICAgICAgICAgICAgICAgICAgICAgICAgICAgICAgICAgICAgICAgICAgICAgICAg ICAgICAgICAgICAgICAgICAgICAgICAgICAgICAgIC AgICAgICAgICAgICANCiAgICAgICAgICAgICAgICAgICAgICAgICAgICAgICAgICAgICAgICAgICAgIC AgICAgICAgICAgICAgICAgICAgICAgICAgICAgICAgICAgICAgICAgICAgICAgICAgICAgICANCiAgIC AgICAgICAgICAgICAgICAgICAgICAgICAgICAgICAg ICAgICAgICAgICAgICAgICAgICAgICAgICAgICAgICAgICAgICAgICAgICAgICAgICAgICAgICAgICAg ICAgICANCiAgICAgICAgICAgICAgICAgICAgICAgICAgICAgICAgICAgICAgICAgICAgICAgICAgICAg ICAgICAgICAgICAgICAgICAgICAgICAgICAgICAgIC AgICAgICAgICAgICAgICANCjw/wODeC9epjQRfwqQ3X7ilFr8WSm8BZG4nl9FwIJHzKLxkmxLlOijOSu WrBSKzEulBMhx1PWukXG8AtOQyW0XyL7KlANowKP0RMQImFQGarSRwTLEqZBCnRiF1GDVnVLvwRD0VkC DoXKriGHMiHBPlAgRsEQPlSBHuSUOoUA9LWJSjX653 tnOiHn6XLc6DDbBgPC3vqh9GQqQjLHOhNjrDJzm1LCotZV8TlFTubFKjKxTpKBUPXpMiW6obu7IbSjzu BLQEKUvfER1Cj0LndZGvZLn+Ua1JGF3dl4AfRLsdOiLwKK7tqb6OYEiMBmAnY4GngEzlTOoxKPQblYDM CTL6XWSJaTThgHbnHRULRhIPNXO1MJNvGfC5JoFaMg VrCXM9TVMlQZ8lGIdbWY8QPYM1PCsgZEZuZFDaK3rOFuScOJWkIxPwwVzcOH8NYuCwA6UjfcVavHXkIv AwIFINCj4+YJgcjxIcJmiAHdQ7HBFtp3TlBBm0MH1CRHEwFAemCC8VNQXawY2nXOrbSN4ZJpQcWZSoSK HWTwGqD62ltUBzOMy8B1XgObWmTPIjDazdDZDpPGic TmFtZXMgWyBdDQogID4+ID4+RRwyZL6XNDzwynQmBZHiNo4CCKQmMSCcQQ0tDHWcLQKaO7Y1qJpoDXOK TzWbV3nlswjnHF3nVDSlJ464jQjfpfKuYPA8BLHjXh9BUMHlFLA6TEJgkNTuCaHkODRLABpjDJ6IgQBv HFJ2xS8jCRagOUXcNZYbH2yHFsVtuKpqYA36wXvcpp VsbCBdDQo+Vh4XWK1os4EzTKy0oxPjFWrlIXQ8JOkqJQZkYYNwKITeHRC2DSK0JNGYQyGqPPIeTYXrBJ tnDLVmZEOklv9FBZYbJRXqRVdmNpIiNCJxGYAgMXhuEOLvUSS7USvlNMAbTEZgWX3HObVtKXOdBSLiCP rdDBDqCLQcel2YTVRcVSCeQtmfDvPmLMKhRECaDMik WJCjBJClNVM5EJXlRCAmYM6ZLrEbPNDpBEOwHyhyHPJjIHKmom7QJRAdRTXnRmP3OaTtRQGdVTDdVNnv ZQIyTMG3Ycg5ECRzDXToLJ2GSxCaATOmTBv6OMixPJBbDEYghq4KJMMeSNOhRTY4VBUsDVThHDFeAKfs VYVmTWS8DhN9HJWuBSUuQP1IIxCmYGWpFHl1GuzjWC AgGRBcsy0YXVGxATPfNMd7VSCkMTTyKQTuHNjnARNzXTZtDRwmUVMpPBEeAV5EBtJcWGRwTXJfVeiiER QaMMIcew9HKIPmRDAqFnNrFOOwXYVbDYRuEVhvWACwASKxZfR4GXFzRFItGI4PZmHlOMIgFRQ1CUqeZQ TpKIJirg1WXXEwBVRiYwkgQdTcFOXfFTIhRUxmIMEl VRA8IlVwXLPtSLEjET7VHxPoXNFxUtA1KwBbENWyWVYmtg1OUPMhKFFkGEE5ZNWtOOIxBUTlDKkhHUTz MTY0WDX5KNWxJJWhMZ2CZiYdBTCsPxMeHcGoLGItJONduc2EJBAnIHQmOeC7PdGcCSEqZDRvPSvlVVSq JOD5JdCgFNQpSZXjQU4KBhHsQVOfErV2NCSfWCXuVJ Qmct7PyIKerYontq4VWBuZXv5TeZxsLRY9EEhpOc6nkDBuSMBvUNEMOt2AnpXyEWLjDXKFEKzuTGXfBY RuTEwkGbQ2IBvvE0A9U8BwHZNeCHRwYderRNH3GjAxCwI1HRVlWDFwOvp4GTGjPeO9R9X3FTD2HmXsIT NhMjRiNDA+PU7hOTr+Gr5Od9IwrqK6vmGtRLadKuXzVv5JQJZUA5CSHd== ID Date Data Source [id number] 12/29/2019 05:50:41 AM EDT [facility] CT ABDOMEN PELVIS WITH CONTRAST [id number] AL RESULTInterpreted by:Nila Negrete, MDPROCEDURE INFORMATION: Exam: CT Abdomen And Pelvis With Contrast Exam date and time: 12/29/2019 4:59 AM Age: 74 years old Clinical indication: Salmonella sepsis; Diverticulitis of large intestine with perforation and abscess without bleeding; Condition or disease; Abscess location: Not specified; Additional info: Evaluation of abscess resolution TECHNIQUE: Imaging protocol: Computed tomography of the abdomen and pelvis with intravenous contrast. Radiation optimization: All CT scans at this facility use at least one of these dose optimization techniques: automated exposure control; mA and/or kV adjustment per patient size (includes targeted exams where dose is matched to clinical indication); or iterative reconstruction. Contrast material: OMNIPAQUE 300; Contrast volume: 100 ml; Contrast route: INTRAVENOUS (IV); Other contrast: Oral; COMPARISON: CR XR ABDOMEN AP ABD SUPINE ONLY [id number] PORTABLE 12/28/2019 8:48 PM FINDINGS: Tubes, catheters and devices: Stomach distended with ingested material, nasogastric tube noted Pleural space: Small amount of right pleural fluid and adjacent atelectasis. Small amount of atelectasis at the left base Diaphragm: Elevation of the right hemidiaphragm when compared to the left Adrenals: Fullness to the left adrenal gland Kidneys: No evidence of acute pathology to the spleen, pancreas, or left kidney. There is some artifact related to the patient's arms being down by her side. Metallic densities also projected over the patient. Area of low density associated with the right kidney could be scarring versus is cyst. Studies dated 12/25/2019 are currently unavailable for comparison. Bowel: Fluid containing segments of small bowel, with air-fluid levels Appendix: Possible visualization of appendiceal stump, coronal series 7, image 76 Intraperitoneal space: Small amount of free fluid Pigtail catheter, right posterior, extending to the right perirectal fat. The immediate region of the pigtail reveals no significant residual fluid. However, there is a poorly defined density adjacent to the pigtail catheter, posterior to the urinary bladder. This density is well seen on axial series 3, image 75. It measures approximately 8.6 x 4.5 centimetres. If the patient does not have her uterus, this could be part of a multi component abscess. There is a presumed abscess within the deep pelvis which demonstrates a bilobed appearance, measures approximately 4.8 centimetres anterior to posterior, best seen on sagittal series 8, image 83 Mesenteric hyperemia No evidence of free air under the right hemidiaphragm Vasculature: Filter within the IVC Atherosclerotic changes to the aorta Lymph nodes: There are number of small lymph nodes within the groin on each side as well as within the retroperitoneum Urinary bladder: No air or calcifications within the urinary bladder There is a collection situated anterior to the urinary bladder, just deep to the anterior abdominal wall musculature. This is well seen on coronal series 7, image 75. Measurement obtained on axial series 3, image 77, is approximately 12 x 3 centimetres. Appears amenable to drainage via CT guidance Bones: No evidence of acute compression fracture. Multilevel spondylosis. Scoliosis. Soft tissues: Anasarca. Gallbladder is hydropic. Cannot rule out sludge. Foci of low-density within the liver. Mild intrahepatic biliary ductal dilatation. Common bile duct measures approximately [address] dated 12/25/2019 currently unavailable for comparison. IMPRESSION: The stomach is distended with ingested material. There are prominent, fluid distended segments of small bowel. Air-fluid levels are noted. Findings are consistent with small bowel obstruction. The large bowel is decompressed.Right posterior pigtail catheter extending to the perirectal region. No significant residual fluid adjacent to the pigtail. This could represent interval drainage of an abscess. Alternatively, it could represent displacement of catheter from complex process in the vicinity which could represent a multi component abscessThere are fluid collections associated with the lower abdomen-pelvis, consistent with abscesses. There is one/one component, that is amenable to the percutaneous drainage using CT guidance, see axial series 3, image 77THIS DOCUMENT HAS BEEN ELECTRONICALLY SIGNED BY NILA NEGRETE MDThis document has been electronically signed by Nila Negrete MD on 12/29/2019 5:50 AM Name Value Range Interpretation Code Description Data [place] rce(s) Supporting Document(s) ID Date Data Source [id number] 12/29/2019 04:36:13 AM [facility] Name Value Range Interpretation Code Description Data [facility] rce(s) Supporting Document(s) Leukocytes [#/volume] in Blood by Automated count 19.8 10*3/uL 4-10 [facility] Erythrocytes [#/volume] in Blood by Automated count 3.88 10*6/uL 4.1- 5.3 L [facility] Hemoglobin [Mass/volume] in Blood 11.5 g/dL 11.5-15.5 [facility] Hematocrit [Volume Fraction] of Blood by Automated count 35.1 % 3 6-45 L [facility] Erythrocyte mean corpuscular volume [Entitic volume] by Auto mated count 90.4 fL 80-96 [facility] Erythrocyte mean corpuscular hemoglobin [Entitic mass] by Automated count 29.7 pg 27-33 [facility] Erythrocyte mean corpuscular hemoglobin concentration [Mass/volume] by Automated count 32.9 g/dL [facility].0[facility] width [Ratio] by Automated count 17.1 % 11.5-14.5 [facility] Platelets [#/volume] in Blood by Automated count 361 10*3/uL 150-400 [facility] Differential cell count method - Blood [facility] Neutrophils/100 leukocytes in Blood by Automated count 94 % [facility] Lymphocytes/100 leukocytes in Blood by Automated count 3 % [facility] Monocytes/100 leukocytes in Blood by Automated count 3 % [facility] Eosinophils/100 leukocytes in Blood by Automated count 0 % [facility] Basophils/100 leukocytes in Blood by Automated count 0 % [facility] Neutrophils [#/volume] in Blood by Automated count 18.62 10*3/uL 1.8- 7.0 [facility] Lymphocytes [#/volume] in Blood by Automated count 0.62 10*3/uL 1.2-4 .0 L [facility] Monocytes [#/volume] in Blood by Automated count 0.53 10*3/uL 0-0.8 [facility] Eosinophils [#/volume] in Blood by Automated count 0.03 10*3/uL 0-0.5 [facility] Basophils [#/volume] in Blood by Automated count 0.02 10*3/uL 0-0.2 [facility] Nucleated erythrocytes/100 leukocytes [Ratio] in Blood by Automated count 0 /100{WBCs} 0-0 [facility] ID Date Data Source [id number] 12/29/2019 04:51:50 AM EDT [facility] Name Value Range Interpretation Code Description Data [place] rce(s) Supporting Document(s) Bicarbonate [Moles/volume] in Serum 22 mmol/L 22-29 [facility] Chloride [Moles/volume] in Serum or Plasma 102 mmol/L 98-107 [facility] Creatinine [Mass/volume] in Serum or Plasma 0.65 mg/dL 0.50-0.90 [facility] Glucose [Mass/volume] in Serum or Plasma 112 mg/dL 70-140 [facility] Potassium [Moles/volume] in Serum or Plasma 4.4 mmol/L 3.4-5.1 [facility] Sodium [Moles/volume] in Serum or Plasma 136 mmol/L 136-145 [facility] Urea nitrogen [Mass/volume] in Serum or Plasma 14 mg/dL 8-23 [facility] Anion gap 3 in Serum or Plasma 12 mmol/L 8-15 [facility] Osmolality of Serum or Plasma by calculation 283 mosm/kg 275-300 [facility] Creatinine/Urea nitrogen [Mass Ratio] in Serum or Plasma 21 [facility] Calcium [Mass/volume] in Serum or Plasma 9.0 mg/dL 8.8-10.2 [facility] Glomerular filtration rate/1.73 sq M pre dicted among non-blacks [Volume Rate/Area] in Serum or Plasma by Creatinine-based formula (MDRD) 86 mL/min/1.73m2 >60 [facility] Glomerular filtration rate/1.73 sq M pre dicted among blacks [Volume Rate/Area] in Serum or Plasma by Creatinine-based formula (MDRD) >60 [facility] ID Date Data Source [id number] 12/29/2019 01:32:52 AM EDT [facility] Name Value Range Interpretation Code Description Data [place] rce(s) Supporting Document(s) Glucose [Mass/volume] in Capillary blood by Glucometer 129 mg/dL 70- 140 [facility] ID Date Data Source [id number] 12/29/2019 01:20:13 AM EDT [facility] XR CHEST FRONTAL ONLY [id number] RESULTI nterpreted by:MEI Sierra INFORMATION: Exam: XR Chest, 1 View Exam date and time: 12/29/2019 12:10 AM Age: 74 years old Clinical indication: Salmonella sepsis; Diverticulitis of large intestine with perforation and abscess without bleeding; Other: Ng tube placement TECHNIQUE: Imaging protocol: XR of the chest Views: 1 view. COMPARISON: CR XR CHEST FRONTAL ONLY [id number] PORTABLE 12/28/2019 4:09 PM FINDINGS: Tubes, catheters and devices: The nasogastric tube terminates in the stomach. Lungs: Unremarkable. No consolidation. Pleural space: Unremarkable. No pleural effusion. No pneumothorax. Heart/Mediastinum: Unremarkable. No cardiomegaly. Vasculature: There is an IVC filter in place. Bones/joints: Unremarkable. IMPRESSION: Support lines and tubes as above.THIS DOCUMENT HAS BEEN ELECTRONICALLY SIGNED BY MAGALYS BROCK MDThis document has been electronically signed by Magalys Brock MD on 12/29/2019 1:20 AM Name Value Range Interpretation Code Description Data [place] rce(s) Supporting Document(s) ID Date Data Source [id number] 12/28/2019 09:23:14 PM EDT [facility] XR ABDOMEN AP ABD SUPINE ONLY [id number] RESULTInterpreted by:BEHZAD JayROCEDDUYEN INFORMATION: Exam: XR Abdomen, 1 View Exam date and time: 12/28/2019 9:01 PM Age: 74 years old Clinical indication: Salmonella sepsis; Diverticulitis of large intestine with perforation and abscess without bleeding; Other: Assess for ng tube place TECHNIQUE: Imaging protocol: XR of the abdomen. Views: Frontal supine view of the abdomen. 1 View. COMPARISON: DX XR ABDOMEN AP ERECT ONLY [id number] PORTABLE 12/26/2019 4:33 PM FINDINGS: Tubes, catheters and devices: The tip of the enteric tube lies in the esophagus. Lungs: There is streaky opacity in both lung bases. Gastrointestinal tract: The there is gaseous filling of multiple loops of small and large bowel. Vasculature: An inferior vena cava filter lies in appropriate position. Bones/joints: Unremarkable IMPRESSION: Enteric tube tip in the esophagus. THIS DOCUMENT HAS BEEN ELECTRONICALLY SIGNED BY KESHAWN GOMEZ MDThis document has been electronically signed by Keshawn Gomez MD on 12/28/2019 9:23 PM Name Value Range Interpretation Code Description Data [place] rce(s) Supporting Document(s) ID Date Data Source [id number] 12/28/2019 04:40:23 PM EDT [facility] XR CHEST FRONTAL ONLY [id number] RESULTI nterpreted by:BEHZAD AveryROCEDURE INFORMATION: Exam: XR Chest, 1 View Exam date and time: 12/28/2019 4:22 PM Age: 74 years old Clinical indication: Salmonella sepsis; Diverticulitis of large intestine with perforation and abscess without bleeding; Other: Confirmation of ng-tube placement TECHNIQUE: Imaging protocol: XR of the chest Views: 1 view. COMPARISON: CR XR CHEST FRONTAL ONLY [id number] PORTABLE 12/26/2019 9:46 AM FINDINGS: Tubes, catheters and devices: There is no clearly visible NG tube. Lungs: Unremarkable. No consolidation. Pleural space: Unremarkable. No pleural effusion. No pneumothorax. Heart/Mediastinum: The heart is enlarged. Vasculature: The aorta is arteriosclerotic. Bones/joints: Unremarkable. IMPRESSION: 1. There is no clearly visible NG tube. 2. No acute abnormality in the chest otherwise 3. No free air noted in the abdomen but the image is 60 degrees THIS DOCUMENT HAS BEEN ELECTRONICALLY SIGNED BY EDMUND BARRY MDThis document has been electronically signed by Edmund Barry MD on 12/28/2019 4:40 PM Name Value Range Interpretation Code Description Data [place] rce(s) Supporting Document(s) ID Date Data Source [id number] 12/28/2019 03:30:04 PM EDT [facility] XR FOOT AP AND LATERAL [id number] RESULT Interpreted by:Bernardo Guzman, Jerad Marcial MDINDICATION: Evaluation of right toe ulcer, concern for osteomyelitis.TECHNIQUE: One views of the right foot was obtained.Comparison: None available at the time of this dictation.FINDINGS/IMPRESSION: Limited single frontal projection provided. Bones are markedly demineralized. Evaluation for erosions or fractures is very limited due to the demineralization. Consider dedicated MRI examination of the right forefoot to better assess for any osteomyelitis.This document has been electronically signed by Bernardo Guzman MD on 12/28/2019 3:27 PM Name Value Range Interpretation Code Description Data [place] rce(s) Supporting Document(s) ID Date Data Source [id number] 12/28/2019 02:06:00 PM [facility] Name Value Range Interpretation Code Description Data [place] rce(s) Supporting Document(s) [facility] [id number]/[id number] [facility] [file] [id number] ID Date Data Source [id number] 12/28/2019 01:52:11 PM [facility] IR IMAGE GUIDED NEEDLE DRAIN PROCEDUREFI NAL RESULTInterpreted by:Leandro Trevino MBBSEXAM: IR IMAGE GUIDED NEEDLE DRAIN PROCEDURE, 12/26/2019COMPARISON: CT abdomen pelvis dated 12/25/2019 from [facility].CLINICAL INDICATIONS: 74-year-old female with history of pelvic abscess, presented for image guided drain placementPROCEDURE/TECHNIQUE: Automated dose lowering techniques and/or adjustment according to patient size were utilized for this exam.Consent: Written, informed consent was obtained after explaining the procedure to the patient, including benefits and risks, and answering the patient's questions. Moderate Sedation: I performed Moderate Sedation with intravenous 0.5 mg of Versed and 50 mcg of fentanyl for 30 minutesPosition: The patient was placed on the CT table in prone position, and initial axial images through the region of interest in the pelvis were obtained. A radiopaque marker was then placed, and the patient rescanned to confirm position.Preparation: Time out was performed. The patient was then prepped and draped in sterile fashion. Local anesthesia was provided using 2% lidocaine.Procedure/Findings:A Yueh needle were advance using CT fluoroscopic guidance into the collection. Approximately 10 mL of pus was aspirated from the lesion and sent to the laboratory for culture. An Amplatz was then passed through the needle, and a series of dilators were exchanged over the wire. A 12 Fijian Resolve drain was then placed over the wire, and additional images were obtained to confirm positioning of the catheter within the collection. The catheter was sutured to the skin with a 2-0 Prolene, and connected to a Bellow's drain. A total of 10 ml was drained by the time the patient left the department. A sterile occlusive dressing was placed.Post-Procedure:Post- procedure images demonstrate the pigtail of the catheter within the collection. The patient tolerated the procedure well, with no immediate complications. IMPRESSION:1. Successful placement of drain into 12 Fijian drain into the pelvic abscess. This document has been electronically signed by Eran Jules MD on 12/28/2019 1:50 PM Name Value Range Interpretation Code Description Data [place] rce(s) Supporting Document(s) ID Date Data Source [id number] 12/28/2019 05:39:30 AM [facility] Name Value Range Interpretation Code Description Data [place] rce(s) Supporting Document(s) Bicarbonate [Moles/volume] in Serum 23 mmol/L 22-29 [facility] Chloride [Moles/volume] in Serum or Plasma 108 mmol/L 98-107 [facility] Creatinine [Mass/volume] in Serum or Plasma 0.65 mg/dL 0.50-0.90 [facility] Glucose [Mass/volume] in Serum or Plasma 100 mg/dL 70-140 [facility] Potassium [Moles/volume] in Serum or Plasma 4.1 mmol/L 3.4-5.1 [facility] Sodium [Moles/volume] in Serum or Plasma 139 mmol/L 136-145 [facility] Urea nitrogen [Mass/volume] in Serum or Plasma 19 mg/dL 8-23 [facility] Anion gap 3 in Serum or Plasma 8 mmol/L 8-15 [facility] Osmolality of Serum or Plasma by calculation 290 mosm/kg 275-300 [facility] Creatinine/Urea nitrogen [Mass Ratio] in Serum or Plasma 29 [facility] Calcium [Mass/volume] in Serum or Plasma 8.0 mg/dL 8.8-10.2 L [facility] Glomerular filtration rate/1.73 sq M pre dicted among non-blacks [Volume Rate/Area] in Serum or Plasma by Creatinine-based formula (MDRD) 86 mL/min/1.73m2 >60 [facility] Glomerular filtration rate/1.73 sq M pre dicted among blacks [Volume Rate/Area] in Serum or Plasma by Creatinine-based formula (MDRD) >60 [facility] ID Date Data Source [id number] 12/28/2019 06:13:21 AM [facility] Name Value Range Interpretation Code Description Data [place] rce(s) Supporting Document(s) Leukocytes [#/volume] in Blood by Automated count 16.1 10*3/uL 4-10 [facility] Erythrocytes [#/volume] in Blood by Automated count 3.86 10*6/uL 4.1- 5.3 L [facility] Hemoglobin [Mass/volume] in Blood 11.4 g/dL 11.5-15.5 L [facility] Hematocrit [Volume Fraction] of Blood by Automated count 34.7 % 3 6-45 L [facility] Erythrocyte mean corpuscular volume [Entitic volume] by Auto mated count 90.0 fL 80-96 [facility] Erythrocyte mean corpuscular hemoglobin [Entitic mass] by Automated count 29.6 pg 27-33 [facility] Erythrocyte mean corpuscular hemoglobin concentration [Mass/volume] by Automated count 32.9 g/dL 32.0-36.0 [facility] Erythrocyte distribution width [Ratio] by Automated count 17.3 % 11.5-14.5 [facility] Platelets [#/volume] in Blood by Automated count 310 10*3/uL 150-400 [facility] Differential cell count method - Blood [facility] Neutrophils/100 leukocytes in Blood by Automated count 90 % [facility] Lymphocytes/100 leukocytes in Blood by Automated count 2 % [facility] Monocytes/100 leukocytes in Blood by Automated count 6 % [facility] Eosinophils/100 leukocytes in Blood by Automated count 1 % [facility] Basophils/100 leukocytes in Blood by Automated count 1 % [facility] Neutrophils [#/volume] in Blood by Automated count 14.60 10*3/uL 1.8- 7.0 [facility] Lymphocytes [#/volume] in Blood by Automated count 0.31 10*3/uL 1.2-4 .0 L [facility] Monocytes [#/volume] in Blood by Automated count 0.90 10*3/uL 0-0.8 [facility] Eosinophils [#/volume] in Blood by Automated count 0.14 10*3/uL 0-0.5 [facility] Basophils [#/volume] in Blood by Automated count 0.14 10*3/uL 0-0.2 [facility] Anisocytosis [Presence] in Blood by Light microscopy [facility] Poikilocytosis [Presence] in Blood by Light microscopy [facility] [place] cells [Presence] in Blood by Light microscopy [facility] ID Date Data Source [id number] 12/27/2019 10:12:55 PM [facility] Name Value Range Interpretation Code Description Data [place] rce(s) Supporting Document(s) [facility] DQQJNd4eVtFPCdZn03/ORPodVMRqj8VyRDlxPJh0JZpwXXXiW9GsAEP7nK9rGCD5IGpHAcCkEsHsHZM3 [facility] [file] ICAgICAgICAgICAgICAgICAgICAgICAgICAgICAgICAgICAgICAgICAgICAgICAgICAgICAgICAgICAg ICAgICAgICAgICAgICAgICANCiAgICAgICAgICAgICAgICAgICAgICAgICAgICAgICAgICAgICAgICAg ICAgICAgICAgICAgICAgICAgICAgICAgICAgICAgIC AgICAgICAgICAgICAgICAgICAgICAgICAgICANCiAgICAgICAgICAgICAgICAgICAgICAgICAgICAgIC AgICAgICAgICAgICAgICAgICAgICAgICAgICAgICAgICAgICAgICAgICAgICAgICAgICAgICAgICAgIC AgICAgICAgICANCiAgICAgICAgICAgICAgICAgICAg ICAgICAgICAgICAgICAgICAgICAgICAgICAgICAgICAgICAgICAgICAgICAgICAgICAgICAgICAgICAg ICAgICAgICAgICAgICAgICAgICANCiAgICAgICAgICAgICAgICAgICAgICAgICAgICAgICAgICAgICAg ICAgICAgICAgICAgICAgICAgICAgICAgICAgICAgIC AgICAgICAgICAgICAgICAgICAgICAgICAgICAgICANCiAgICAgICAgICAgICAgICAgICAgICAgICAgIC AgICAgICAgICAgICAgICAgICAgICAgICAgICAgICAgICAgICAgICAgICAgICAgICAgICAgICAgICAgIC AgICAgICAgICAgICANCiAgICAgICAgICAgICAgICAg ICAgICAgICAgICAgICAgICAgICAgICAgICAgICAgICAgICAgICAgICAgICAgICAgICAgICAgICAgICAg ICAgICAgICAgICAgICAgICAgICAgICANCiAgICAgICAgICAgICAgICAgICAgICAgICAgICAgICAgICAg ICAgICAgICAgICAgICAgICAgICAgICAgICAgICAgIC AgICAgICAgICAgICAgICAgICAgICAgICAgICAgICAgICANCiAgICAgICAgICAgICAgICAgICAgICAgIC AgICAgICAgICAgICAgICAgICAgICAgICAgICAgICAgICAgICAgICAgICAgICAgICAgICAgICAgICAgIC AgICAgICAgICAgICAgICANCiAgICAgICAgICAgICAg ICAgICAgICAgICAgICAgICAgICAgICAgICAgICAgICAgICAgICAgICAgICAgICAgICAgICAgICAgICAg ICAgICAgICAgICAgICAgICAgICAgICAgICANCjw/iPGeC3lrdNGfmyI0Q3xgEa0MSv9RWY5qc8MqEVMn RQsjpsIjCfjIKqWrYPRrRafDUta9VFesGF4MkTZwO0 NuM4MaCEgfEM3DCMEbDQIzgCHrFJPkLFVdAlN8WFBkSCekQO2QsBUtKLmxOLBvTIYiDgKcADAiXVPiIH HxKSCxZKABEBUyCPLgQpOrHCWhGQBdOVuxTEZIZBL0RFNtRfRfJXjoZY5Mt8OvmBT0GMe+Yw9HTN1co5 YtJBpfMXDgQG3def7XACaSYgEyQ6RqtsV3VAYtCMVo Ew8KCYIwCQMbkOZ1KMBoHMMBTvMcP0IpxQ82UDFJMy5+ZItfuwHhGzzSPkHjICLsv2IiJKi4NQ4GPYPn ZXb0dUBeC32sd4AenAWbKwzzQ3RfcRrqupwiVEgcQ4nrMSQaXXEKLGGwxJEmIX8uBF7tWLAkEKF9WcJ0 AFYHRD5KNFBnFCJejKPfOBXoQWARIX0KJPwxJUY7MT ZxnuLbpHWuEHmlMV3YMOLrhfZkWeyeBCHNNCb+Rz8IHE4jm4UsGRx7SCIdBJ6hlv9QLXgUAxBwL1Z6dL KzA9P2NFmnMl7HRGMnYZXcWocyEAPMSPayXT0WWG3hrkM4RH9RxZDpETHyAYLqbAQiPJk3O24jvDWrJT yaQP1LHQL+Scarlett+Bu1GLCNrDBXgDDCpHvUcTTCQJyNb A7CeR5CWq2JvY9NdDV53dTgsuyFzFNglUX3CWA5xRENcAUQNPF1UlCIwvU8zgoUhRFLtPAGEFaSmN65h rHOkGJGtCBB3AYUkFv6SPGSaB1TcskQuzYgfkoFeYEVkGEKJHQ7JKWauxcAxnUGelMggGO67iXvxNR6R Lv7MEuPcSS2olu1FgWIiBg3FWND8Hg1DWMLiHWPdOO ZtTEX1XTTpQyNmBTyaYRMvEPDlPTJ1SOLvUDMgGV2ESlVxJEHtRQAiRLMiNGBeRDSizs3VEWMbHVF5QA S0BXYwPTSmPPTsHCfcHYHbJSIyFPT3EUVdBXYeBL1HGgFpOLJhHXF3ECHtZGKzGJPhle9KIKLzPNUgBK VnXXOaMHRbIBIwNWgbTMVaBGW2CID4XGBbEHCmLV6C NdQhHBSxAWlaPmxyIZIdUXHsby5CNBAxJESmSIMeJdBlHYAfQPGnUHkfPAUrYTQrLdEkYLDxCSOxYF8N FcTkPGZcMGG7ENXjBGGcRRTxhv8JSHTpAMLvUnt1BSQrECXgMHPtKIwkQBZuYGS6HdgxXERxFVZoXQ7R RjPjNJXvCDF6ICzpNSMpTGBjmu8RSKGiQNUjECDhUV EiIRMzWEOrRJltJFCjZHS6QrR1RNBzRPOuKU4SNeKtNFOxGiHbFhqjCDUkJYHrmk3BWSHfOJKdChA1ZM WaVTAcXBAfBExcGUXqNHQ5VZAoXDOlWNFtEC6JCdJuSLIuOwY2IQFaMDFdEBVytd3UDKRtMPLyLFQpWu LpFENlODOcCSsoQLTpGBS0IUYqUNRfNIJdCJ4MBwDc WYXgJtY6XOEuVGSiMAHaqs7SUHZtTICiJka4AZLqTPSbBGTrONdpJEScQZS3IZT6UKJuVVTvSM7ZRxKr QTLxQlxbZWQgLOYoNICrpe3QZOVrJIAsRGHjDSWjWEUaWOMsKBtfQPAuFGF9FUDnJFBjKDIfCH1OXpSj VEZhRbt8JUCgCYJoVQOhmu4YREAgHAJ7WZF8HJSbJY IkREYxBMmkRPKaZKSgOyk8SRKqZHFoLO7HFzMsWHFcCCK4YIeqYVFsKVYxva2WEJIvNGD7KQngZlRyZC NmWPZqVLwaUTPmUUZdFApwWIZvCKEsQR7RPfHvYPEsEEA1LjWuXLNuWREyni4DRZOpXMF1DxHyRDQwJS LrBDFvNAwtQKDoFAPiJeocHVEeXZOeFG0JLkHeHMZl KRV3AsDsFFEaUHOoqu3WSCPnEMA6UEZbXXHcLTWzGBEqWQpxDULtGJJ0EofuVGYvGRHaSG5RMkMvYZMw FIV1ZzfwLVAfBGCfvm8EtCFdxVdjgi0DTVpEZb2VmWguOSUaMLxnGj3caWT8TCOxFUPBIl5HyxDfXZAi XURQUZmuQBXsFBafLYUqAFT8NKY6LQmkIIL2Mfv8KH X5RtXkHDK8Ptt7VbY8LGB6FkMpTRmnNrOzTXB1KLrkHPd1TRU0WVUpKWNqNnS+CA4nXRo+Pj4Ah7Tpsn M7gkPsOPk0JDQ7Xt7EQKMKU6VGZh== ID Date Data Source [id number] 12/27/2019 07:32:58 PM EDT [facility] Name Value Range Interpretation Code Description Data [place] e(s) Supporting Document(s) Bicarbonate [Moles/volume] in Serum 20 mmol/L 22-29 L [facility] Chloride [Moles/volume] in Serum or Plasma 105 mmol/L 98-107 [facility] Creatinine [Mass/volume] in Serum or Plasma 0.65 mg/dL 0.50-0.90 [facility] Glucose [Mass/volume] in Serum or Plasma 120 mg/dL 70-140 [facility] Potassium [Moles/volume] in Serum or Plasma 4.2 mmol/L 3.4-5.1 [facility] Sodium [Moles/volume] in Serum or Plasma 136 mmol/L 136-145 [facility] Urea nitrogen [Mass/volume] in Serum or Plasma 20 mg/dL 8-23 [facility] Anion gap 3 in Serum or Plasma 11 mmol/L 8-15 [facility] Osmolality of Serum or Plasma by calculation 286 mosm/kg 275-300 [facility] Creatinine/Urea nitrogen [Mass Ratio] in Serum or Plasma 31 [facility] Calcium [Mass/volume] in Serum or Plasma 8.0 mg/dL 8.8-10.2 L [facility] Glomerular filtration rate/1.73 sq M pre dicted among non-blacks [Volume Rate/Area] in Serum or Plasma by Creatinine-based formula (MDRD) 86 mL/min/1.73m2 >60 [facility] Glomerular filtration rate/1.73 sq M pre dicted among blacks [Volume Rate/Area] in Serum or Plasma by Creatinine-based formula (MDRD) >60 [facility] ID Date Data Source [id number] 12/27/2019 12:06:15 PM EDT [facility] Name Value Range Interpretation Code Description Data [place] rce(s) Supporting Document(s) Consultation [facility] ERKZTk4yFiQUFzVg78/UCAneLHLag4YlQEfrRKs6ONzuJJIyS9LeFAS0xZ4aLAV7OHmSDfRmKqYeQKX5 lbm [file] 3XW51EFUjnZwiVUf7KRpTJvXYrEpxGmhxMOtfv6keTJawxPOo+559+Luis M/gzwuny14qyDEn4gWibzqeL [file] ICAgICAgICAgICAgICAgICAgICAgICAgICAgICAgIC AgICAgICAgICAgICAgICAgICAgICAgICAgICAgICAgICAgICAgICAgICAgICAgICAgICAgICAgICAgIC AgICAgICANCiAgICAgICAgICAgICAgICAgICAgICAgICAgICAgICAgICAgICAgICAgICAgICAgICAgIC AgICAgICAgICAgICAgICAgICAgICAgICAgICAgICAg ICAgICAgICAgICAgICAgICANCiAgICAgICAgICAgICAgICAgICAgICAgICAgICAgICAgICAgICAgICAg ICAgICAgICAgICAgICAgICAgICAgICAgICAgICAgICAgICAgICAgICAgICAgICAgICAgICAgICAgICAN CiAgICAgICAgICAgICAgICAgICAgICAgICAgICAgIC AgICAgICAgICAgICAgICAgICAgICAgICAgICAgICAgICAgICAgICAgICAgICAgICAgICAgICAgICAgIC AgICAgICAgICANCiAgICAgICAgICAgICAgICAgICAgICAgICAgICAgICAgICAgICAgICAgICAgICAgIC AgICAgICAgICAgICAgICAgICAgICAgICAgICAgICAg ICAgICAgICAgICAgICAgICAgICANCiAgICAgICAgICAgICAgICAgICAgICAgICAgICAgICAgICAgICAg ICAgICAgICAgICAgICAgICAgICAgICAgICAgICAgICAgICAgICAgICAgICAgICAgICAgICAgICAgICAg ICANCiAgICAgICAgICAgICAgICAgICAgICAgICAgIC AgICAgICAgICAgICAgICAgICAgICAgICAgICAgICAgICAgICAgICAgICAgICAgICAgICAgICAgICAgIC AgICAgICAgICAgICANCiAgICAgICAgICAgICAgICAgICAgICAgICAgICAgICAgICAgICAgICAgICAgIC AgICAgICAgICAgICAgICAgICAgICAgICAgICAgICAg ICAgICAgICAgICAgICAgICAgICAgICANCiAgICAgICAgICAgICAgICAgICAgICAgICAgICAgICAgICAg ICAgICAgICAgICAgICAgICAgICAgICAgICAgICAgICAgICAgICAgICAgICAgICAgICAgICAgICAgICAg ICAgICANCiAgICAgICAgICAgICAgICAgICAgICAgIC AgICAgICAgICAgICAgICAgICAgICAgICAgICAgICAgICAgICAgICAgICAgICAgICAgICAgICAgICAgIC AgICAgICAgICAgICAgICANCjw/xMNvW1uxoTRcerA8S1wnDv4VTi1YIT3wm9FmUVOvFRkipuXxMttIGv UhYMRrFmuJWyi0STwmNS2JbSUbP6FvN0GxPVofYJ2D JNHrYBYrxVGmVUFzOMHcWnT2PAQoYHwvXE4WxRHeBHyjBGVuQAGnXqAmLRVlLTZaMKSaMQVtJIFVNKNs NXGfZnMlRRZrRUNiYI3YYZOfX037caPrCd2FKo3GFgTyZD6hvz0WYgMoJKOoLdsQBaz6QIqyYJ0VmJKu yVCpDbOsCJXKSpSbF9bny4SiXxPwWQBOIWbuIO8En7 VudCAxDQo+Ad5HIB6qi1DbQTfpTjRgOL0bdr6EXFfKFgYrW1TliBlmZUCozmS1rYNtCBZ6CKPrizqjRS QqL2YuKBMtYHQ3LINQJDEgtKQaQO2eDj4eWUMfARI0McS2DVVQMF2VNNEaNNGopKYpYCQiPTGXPQ6HKP zgDLI2ZSEpeeIvcCShNJxzTC3TKSZdwfStLrBkUYJA DQo+Gz2RKJ7so6JpSDifSLRtSG9xgm4UZBsZYmYcV9E8zIOsU2Y1XViyYq4KEJXlUALqOaQbADMUCUaz ZW4HJB6yabM6WR3OeKFtIWDlOYSdnVUqPQt2D95fiYAbRIhkXT9YTDB+Scarlett+Ka5KGHSzUMRmXCTiTtWp ZHDVOsQwV5PhW6GWp9AmE3ClHE31wJhaesPaDAxiOO 6KVJ7bFETeNGUZPT5ViNBbwQ1qzbBuFdKqAXHSYsDaT61qwCQhCBQaZZQuPFDbCj1LHZTdJ7QxkbBwqU eqlnGvZCQwEXURJQ4HMLwvaiPloEVrzYmsKM62aHroNW3YTv7VTeDvPA3mno2JeUKsBw3DOQEpFP2KNC NzKOUgOZFbURP4LWYgGjGrMVbxKXTbDTYxJYG4RUHo UEKwBQ5JYjRlFEOwKNL9TOXmRVXoYUDzjj7HLTHtRKL3WwP9DKPzCHSkBUGfEYhvEKPrDJEbMCU3ILQw OPMfET5PCmHjNKTrWVX1UYNjAIThOWEgek8GOQKaZBLmNSp5HMXtLMOsYHZpNAhtJZMnRPF1QBHhYIJd KUOkUZ7CDjPrOYFcQNscTUtvUJKdSAIymm6COPMwSI CvHBN8ICWqCTTcKMJyENzmFHYuRDGrSIeiXQGqKTBpAU8PXiTePTDgHTRoTIFfDXHzXHPwwl2ZRFSrIE FlXHNoTZThAEJcNBKtFBebQPGxZUH9TZf4DYJhGHJoPH8SDkDcFZMeGBx7PVDbNMGsIYIwtw1SARNxEI QyVIZnTVCrDEDzEQWlFAgxDMJpGFC4JvFoRBGhGWIx NH2AZlZeJRRfNHr3SLGbZDDqMOXmdo3XBUXqQDYqKAk8VbInPBSdOSYjLHkvGTBdRBQ9FUAcONGtVCSy CQ3JZaMoMYTgLtS0FNdjGZQdAOLift9MQWMuSQAoTABiQRMnJUSvQTTnIZdfMZBoJBSkPkJ3BTSsVQCw AL6OWwKbIYEsLfYbJtgiJGMoTIXmgk3FKTOyCAKtLu D3LvKuPPMgSUXtPXyyWSQiAQGsFjJ0FABwXFRqOU8AJbOzXIJtSdg1YCxkMKKkPRLdzo5WEGRmUIR4VF W0EvRhTSFcHSGfRWyyZNCjWHEiOCV7HXEkTXGgLI3TCyKeMRGuHTR7UTswCXPsLHSfbs4BIBUuLGL4UQ zuAEXqSSOmCXUuFVwgHPHdRUWpEvUbVXMpLPCyOL0N XwYsTFNsLWT0LmHlXLLyWEFaoj7PILUiVYP1Eqd3GiBvWAFxHNZbPErtVDOoRCToBUPkISUkOABmRR8K SdCzNWjpYGRYWqz7PYtxG9l8PTQyGM5PD9Iok9OkQbMsICSJJQxzFW2bhqEsLQBoZm3IK3mJLcyoMQN5 JiS2WGBvBDKwVgIiY5UpGWTsMHvmRgT5ZQCjMI9hTC C5JnneVpF9JXR0PAQpQRSnMJNjDHO8KtNwEfF6NuC4LiUcUF6JEg6EIqB8JWN1yLVmVn0QGJAqWRRQJt UuYD5YTEk= ID Date Data Source [id number] 12/27/2019 10:24:45 AM EDT [facility] Name Value Range Interpretation Code Description Data [place] rce(s) Supporting Document(s) [facility] WAKULu8sIfMTRzDzw1NpKiXoFOAoHO6vwwd4W0L3jBQhS8FldWLsu8fkB6BsI2ZhBMPmETZGLB3MuGRd jb2 [file] KQ88mJQIxHnhsl1ezxcsY5GUPqh1SmsRl62ldrT+Mike/N1u+iO81l83d/2Oz1YrGkwxsPiZoCX0+042/a E+zR5bv7+sYXuhhTHt0ux2+/ZmpxXwY84/uqPNZ8SN GVCkWNOrqNnZaUE21kuJVwOF/HYOnsGmmiyC8FvkZTN7jbc0zmuKxupCHXE+pilot captain+kkwxGPX4pcfqykGO [file] 84Gl8Hy28q+/t0Vs8b2/x2hq8I52jS5uXi3/wmUM7W 14nsW1/2b8078tTF673PbEqfjPp2V/fEsQ1FgiSc90D+yKfeURKucb/m1xKaTNLycN+OfUYc+7wjkA26 A7+FyaOy7nrnVnjtK77YjGp3inQ1Gs1fwDU/18xe0xk76lv7q58dN+fWV+PkbGf+jbOkc9w67UO/893s KGeg/W2r5zOX/niWPusur0X/pYRr3M+0H51R8r/C+1 8M4mccC0jmrO+4D39e/dh/9WP/rza6pkkJa+L+ER8kFL1n2Y7uC9oo27yTJaa2wPXH8hi6Obz5/s4fdz w6ycuq2+ro57fVz0/v60245wzFvn37/fCByil63/NOG3/rPfPRThp/ryfKP/09wDWDEqvUTRmeY5gtwf iBedJiH55+jzkn54puacSJpFQZ5+uazm/Er/Ts4Vc7 TfwtP16/5Xyw36EI/W76P39nT4mdX0idOH/rm3V/vf6/k8HdM7TE2egentv91932Liub9+ZXLr+o/+56 J69gnav1Afp/0kAw6edPy2B9OmowrbAyC/x+in0FfM1sR8irmhuu58wkyyZ4dxeGOSfG2Hxga8ee+9uX Q15yn2gjC253CR04jMZ0+VXb8/LO/a7HdR698noc/+ pblbK4+VWRn29+VWTnza+tkj20M5Owo/qKu+6s7/k3K39026jx1o583iuVMHjbmG/0vja/Evfb+d57kf 636x8DZPa6k3tkVtR+qvupn0eO7lubv/ynuuJ73/V23O/f+yfL2/d6Q4seP+2r34lF31jmje91oymomD 55jM6oi8P0z74hlhC0pT/6m9vdl+wpflXezO6+nizv h7mndZ5vYyo7gx/vpG7z/68Tuc0UtBa/hktII25c3fypDad+xj3zK1+f++GKmnUlQ5xNd0Cs3+HPpR/+ XHrF/Xra0w+pXA6e73VsK+533O+4P3B/oD0T9+vTV5sc8fOhfh7pe91a/N19f5AmR74b0niaR/mdDrzf za+l54HdTnj/espsuN/w+8N3mzQ30usz2+9J13nlI9 vp rheumatology/s7SJeR37ye93kNKo/11fr/5lcvZ/Oq5v/V9rnF/6+yx4w7fgk2+17jfcL/hfqCcQPnQd/Yz184lF7 +jza+g14h99bSVwmxL36k4Zq6v/Gr6+viz+JXGMfErcYMFviF+5et6+RG925XjilIeO708PdP/8m8Cv+ +43w+yRK0iKpPelLPRU3H1Ra1oxqJ34ck/aqk21cB9 reJXu/khsfP2Xf/7q/sSdrkGV8o977MkIb04/D5QTuD+5uctt22GW+0ZaOdE+2ec6/JNYvQi6dphE86I fNa/NZ/9vp8F2503UBQ/bh3Tn3s2o/FZ98/7uLNk2Tk4j3n+vpMx6f53xhH1gscJp/cUSu2fsHj2dqB+ zA9CviZmIFw2CtVgp/Jp3isplom7a+4X3C+n/HLmo1 rOer+TDdaNZp6P/FoYar424w9qSroejy/2mhl1jLMpRcYp4DwJ36Kw+TECg8P89zqgN/Er38/HD+tZ7+ /h2BDD94eMd/rvzps+17gfb3+jessie/JV+oWe3W78nuY4XqFalQfSe/lbbnBDJiglS7s+FX4+ujVDn+u7f Dn2g5/wxbqtH3QMo/Uis68h6b8NZfX/9YWKCdQ/tbX Si37S79H/S1H+E42dqUsYmOtiK/qUzt+5YMBNr+KxHh0MfKP8maK+EsqgG9woyRQ7j0nmoKjr/at858F za5jOO2NRgAlZhrva8Zm6dGEkv/ufOj3/lffOpTZ/KZTZmFkFE82rd4g/m3dZ50Du+nhhDsRejx/eHy+ 6eElGi8+nqLlW1t6n27lm3Sjp4f5HlJ0/PLenQBtvr vdt9807sztvy+o3vbQyCgmfa7L2spPLl/agWsXx1001H398wm7y61jrP/zK4+Hm1+535urOVmV298hB7 2xA/PRSLh/9bGT0AzzxpPtK38kpgG8mlpO8vxeE8gebt0E2M4m2o+K+FVF/FeGoQkE03LQ/h9N9Ardif 1EotQyQX2Lo4Wm7hjN9z7ejyIZG1c4vI+D+JiOpB7C e+cLr3iEr54s777Xj7B3idXakT23Aa9U4f/gdCRl89C+60FthcrDj6/vxa+Wr4++C/qKX/l3U39MV/Rd 3fjfkuRsI602dTRAl9+JW+1Y5LxnP+SM57aguNjElGlp+3zubZ3MLcfHz6r8/d2dLNqlfsI5Zsw4xfXR itC2bH5f06g40iGcc1ebpsXUwY4kEn8NPlkyevK+5b zN4i6pt7zb+HNL5/tCSyce2/PAKyfqR9HnlO/pT8CKX/n6xGOb+KRJ4NDhjfun+t4umR8nU5F/cL+nU2 TXwwacK5RbanmMf1/Q68Rjm+JX+h0pW1j7HQ/Fr/ybM/+4SwSOysu1Py3N0GJ/8z6A9Rpz0hcgWc28Ik nOhZ188Qk9Xwki/VZO/23lrBdaPfHYVk//beJXzzV+ D3/e/Mp/ILjWt3+1eta/Ln2SgVTZK/9t+R68t93wwtwS57o2qH8flM41pE0l3tJnc/iV7CZ+kszPAe52 XON+xn34M/hVa+f7UWsn/tzaiT+2tqhh7G/aL0dC2uykg0R8bjsL0cejm8CDt8tfdgg5sx3lT98fEQ6l nPhk0/fC0mkxUjmtix55ad/x+2m7Foco2u8YrzW9F8 TbxK+e6zi/NEmW8wzIrpv/4v7C/dBiV8xb3L1i2thWk/bN4wmndLTKrQpu+diOXymGudOGe/qtyk2r8s z7Hb/GFaRkF1ben4SI+5PJu/murrE5b9Jj++PK2sk8Tcpf087f1Ta7S/Td5NZUqfVg3oGsN3ub3ghm5j XHvvKw4P1t26AN/OdsV54bSqH/Azi9ZCVGdygY1yY5 hs9BwH5zb48bI239HraSi27z4JFN/yZe/kiUa5N9x/5Vbr/xQ5BH2qvV9nl0tcbULX6j7/e4X4S14LYC 75mhQ52vnqyQ75T3kx7SMtg3B/H7wyeb+PRmcbqLr2Yd/WtJSL32N+8qnV2Kd+bEfcy/13yM72X7Sc/y NfR1/LfL1ZgN63NsyxC8Me0/bygH+f4jhdZfd+P+wP 2B+7y43gnlB8HnRpxWxzF9+B/eL3x4Ms9fmz6V+1K70C8v2akr59W+U/H7E4/eZa8bqCGpR/f7O0/t9N 87WGHrSz5gXer2/xlmj063vGrJurw5l13ovz/7csfpiN80ysZ+fz3TkdMpfq14vM+h+ZAhiGY0eFfpox V3kc/8G/zLp5CL6b/8/qwHIy/cx/cvk00IZExsxdgE XYfengfW89zy59Wt/clrtTVouQrhIT9Y4xgVy3t+G+N2w6TX3w5+zSdC9gy+U1PZXhpCO8k527Smrw/7 Uc/3/hjVB9ajK7s5p+d7aCh+9Wnw5b2kUU7QHLVngD290Oqx/RtRT/+KDf0Psvrej6z78nmD+JXqamf/ NnFjVgyrfmgF4f+F+WG9yP64BnOu/o1Wcb/hfsN9+H OL4+zfiEb8Ak4N08d0/zrp0oi6O/qrO3juQbrybQKfP4nNih82BgERZki2L+4yDF09Yra8dKGwHstC3y qtg2qKVf0QcH+4H7h/1cCSD48JehYtYJbWn/YjRUzcX/x5TQ2YR+wy2Tf9OU5p77L6UrCH4teax3kqtM ++70c/+8ND3jy7Jlv/4s/Rz/p97V88v/n8bNLaKeqe oI5Cq2olrzFDlDT+ijC/7ikdPSvbyip0dRvXbo/VqH6meT8D+59kNQ2vx5C+vY2Dq531d6uld9z7qE9r 1zNb3fYnye+9Y5dXDBa696N2zX8olhMl593gxJw6+ZXzfDe/Rbx0q3C6omlkld9LzhiDcz6e1sf7/lj/ 3xcvj3U+nJ799N6y3F06js224ErSj7dnC5mv4/ugE2 [file] 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+Yw+r64y244/0oK0/bsWsEOmw8aeSJoddn8kbvqM+RUY9aLPe6C1zHFjY0ZQiB72i+f40XgpXex6o8 1+vEEE6raDcW2/ELCZpgZamO3m6jo+34RJGz+K5XKF l81+cmIL5i5VsiYL1D0wp+t/3yF/PdZmxg/ZD7oA/2SR/bxg3qusarboi+q9FJbqkCS0qwHADeW5bAOa +rEGx2qMrmvevbfwfu5Gbco1N6OwhpwXgQmMeFMUrIbI49qJ5ME5OXusM7MlfQSV/Jk/IGSS56dOjZwX se5wiu/Wxe8/Y95zg09AiWvl3SYwD9QjcG+0iTPGRe /GVe/XUyMf0uiqJETCr7mS5Lk1MNeC2j90Mq67+FuHbOF9/QZ749ji20rBUcz1wliyvBPQdn80iAtk++ 3cVqE9VJar6EF+vCFrh+7QUE2D8SKdDLK7CqoMyT+Cr6ckzbZlnY1vRgd7aIsWhM3WsPu+J6kzL2NgXZ 1IQNMdg5qslGqjnaoBwal4Sd24HGJzdqqaC4LVtusn i+z7dkZiwwHh5KJcbjp2zMXafk4tbFFsCG2TEyop4H8W+oL8q1cQGa41NgiR97i5STv5wm97JJmPw+l5 RHwDuRhFRDvUvVEPu0tAka6tQncyAHfbcBW+tXW/BIUGziOno5Se9iggCunR9jBebf/iPce7oj0h0CZ5 0fV57tonwOGJx61GNzh8HN6B/il910NjcSUgr/kxTz 1TJH46IChJ7oqgeHHocvgIxLSUerDK0vAoL2oBCH8PGapeOb6JItF0FcoDp/uYB9J6kZ8MhzAxKkMFK+ lEO5idIgJm0AkR+ygc3NwCjZx1XtYOQfzOdKaP8lnggmkYuQOqf3jsEKEW2UteE5TvPxw+R0o0R6JaY1 95QoorKExthWdgBrox4bgE/Pib9US+I3AqbzxvQ8n1 Kx19FQTgu7E+sHGwhUuSyA45efs/Viz4mfd82ivepAa/UuEP4N2Nynsjb0vqfWq6QC16I8226U5v/Zach [file] Io3R2JGnSpS0gxnyda5YOzqQyG+Maria A/s/r9xoyhX/Zm9od+lcjwYT4uXlV4JYLXktXw1gTqaeTtbjRXo [file] LXFAEX4YIISIAEHYSPAaRBIySBV2YZOcK7AimxKmfG KnWTQKFTybVqsxMUGdfK4szBpoN8LiUXK4d4RcIR0OE8JiEWRqYSMRQXQ4e6GdXYOxjxseefzhIoAiEJ MoOWZrTYUxSN2Loq3mbZCpxpEqLIZLHGwuJynjWQ5wtXwzcyrnH7NplXFnNHO+TsHrDR8qyq0+CjEgMC IoFvd0BCOjTYukSGEaRVEyILStK3tqYAEyZtFvEUSw JqUjZJ1Re0EhcYGjKx5wmjVmItmRqYToSeysUIHiFSIqYKKfGgIGPSArIBYsMBPgNJU9MNIeCPQyFGhc OOXgONc1YGY4WIRtAZVtGQ0lDvSaWUMkXcK2SjVlWECwQMClnlSQWRYiEVZ0ONo9XFTiSUCqVJLbPTdt QMTjNCQpKRLeBKM4NPZ7FVLjFjEpFZKtSVDoRWDcHB FoPDCmzeVCVCZrCCDvJEP6UESmBDXmQFOpSLtmNFWlUKTaAMcuZYLpHXTtWF4gHzLyGMSoWXRqEAkqXR RkCHVxsyZKLDLqWXXdCPYwMKGrZXKiLRBbJTouYKQaHHOfUGYcHNEmCGRbMY3kIsWqCFVfMVH0SIHsDW CpYHGmanSKQDUfCYKtNIc5KTXeRYYoIPLrGUihQJEu HFQlQLY7LLFjZYJuSS2vBeKkBYAyCQV0IbUbKMWePMApvcOOGUShFZKdGHZ1JmXaOAQrQKWsEPhpVTEs URWqFBplCYPfUOSjCR6lTdZbWDMkCEVaMUqyITIaZQHxbgBBQGNkMZFhVPQsDfFmHDHxJJEbWAgmFZSw TGe3Yqt5EGAuVRWhGK1pUhGqWPVoAFW1SXdmKROaQS KgriECJCAbYGAuPArpPZTcQWWiYACqSFliTZJqHNDbJDI9TZLxCDWdBQ6mJnMaTHBhKGTaJMSrZqZ2Ur RrHdQXtMHnzCyclnq8XDkvA6z8ZPDzACwzER8ldiXjHWRsRokmFo8ygDZ6WEIxMbfUMs3Uq3TpebQ7wd BrQwz4CZG1BhWlMR2P ID Date Data Source [id number] 12/27/2019 05:40:43 AM EDT [facility] Name Value Range Interpretation Code Description Data [place] rce(s) Supporting Document(s) Lactate [Moles/volume] in Serum or Plasma 1.0 mmol/l 0.5-2.2 [facility] ID Date Data Source [id number] [facility] Interpretation Code Description Data [place] rce(s) Supporting Document(s) Leukocytes [#/volume] in Blood by Automated count 17.0 10*3/uL 4-10 H [facility] Erythrocytes [#/volume] in Blood by Automated count 3.82 10*6/uL 4.1- 5.3 L [facility] Hemoglobin [Mass/volume] in Blood 11.5 g/dL 11.5-15.5 [facility] Hematocrit [Volume Fraction] of Blood by Automated count 34.6 % 3 6-45 L [facility] Erythrocyte mean corpuscular volume [Entitic volume] by Auto mated count 90.6 fL 80-96 [facility] Erythrocyte mean corpuscular hemoglobin [Entitic mass] by Automated count 30.0 pg 27-33 [facility] Erythrocyte mean corpuscular hemoglobin concentration [Mass/volume] by Automated count 33.1 g/dL [facility].0[facility] [Ratio] by Automated count 17.0 % 11.5-14.5 H [facility] Platelets [#/volume] in Blood by Automated count 284 10*3/uL 150-400 [facility] Differential cell count method - Blood [facility] Neutrophils/100 leukocytes in Blood by Automated count 94 % [facility] Lymphocytes/100 leukocytes in Blood by Automated count 3 % [facility] Monocytes/100 leukocytes in Blood by Automated count 3 % [facility] Eosinophils/100 leukocytes in Blood by Automated count 0 % [facility] Basophils/100 leukocytes in Blood by Automated count 0 % [facility] Neutrophils [#/volume] in Blood by Automated count 15.98 10*3/uL 1.8- 7.0 H [facility] Lymphocytes [#/volume] in Blood by Automated count 0.45 10*3/uL 1.2-4 .0 L [facility] Monocytes [#/volume] in Blood by Automated count 0.57 10*3/uL 0-0.8 [facility] Eosinophils [#/volume] in Blood by Automated count 0.00 10*3/uL 0-0.5 [facility] Basophils [#/volume] in Blood by Automated count 0.01 10*3/uL 0-0.2 [facility] Nucleated erythrocytes/100 leukocytes [Ratio] in Blood by Automated count 0 /100{WBCs} 0-0 [facility] ID Date Data Source [id number] 12/27/2019 05:12:14 AM EDT [facility] Name Value Range Interpretation Code Description Data [place] rce(s) Supporting Document(s) Bicarbonate [Moles/volume] in Serum 23 mmol/L 22-29 [facility] Chloride [Moles/volume] in Serum or Plasma 104 mmol/L 98-107 [facility] Creatinine [Mass/volume] in Serum or Plasma 0.76 mg/dL 0.50-0.90 [facility] Glucose [Mass/volume] in Serum or Plasma 127 mg/dL 70-140 [facility] Potassium [Moles/volume] in Serum or Plasma 3.5 mmol/L 3.4-5.1 [facility] Sodium [Moles/volume] in Serum or Plasma 137 mmol/L 136-145 [facility] Urea nitrogen [Mass/volume] in Serum or Plasma 25 mg/dL 8-23 H [facility] Anion gap 3 in Serum or Plasma 10 mmol/L 8-15 [facility] Osmolality of Serum or Plasma by calculation 290 mosm/kg 275-300 [facility] Creatinine/Urea nitrogen [Mass Ratio] in Serum or Plasma 33 [facility] Calcium [Mass/volume] in Serum or Plasma 8.3 mg/dL 8.8-10.2 L [facility] Glomerular filtration rate/1.73 sq M pre dicted among non-blacks [Volume Rate/Area] in Serum or Plasma by Creatinine-based formula (MDRD) 82 mL/min/1.73m2 >60 [facility] Glomerular filtration rate/1.73 sq M pre dicted among blacks [Volume Rate/Area] in Serum or Plasma by Creatinine-based formula (MDRD) >60 [facility] ID Date Data Source [id number] 12/26/2019 11:20:01 PM EDT [facility] CT HEAD WITHOUT CONTRAST [id number] RESU LTInterpreted by:Johnny Wolf, MDPROCEDURE INFORMATION: Exam: CT Head Without Contrast Exam date and time: 12/26/2019 11:04 PM Age: 74 years old Clinical indication: Salmonella sepsis; Diverticulitis of large intestine with perforation and abscess without bleeding; Speech disturbance; Additional info: Evaluate for acute intracranial pathology due to dysarthria TECHNIQUE: Imaging protocol: Computed tomography of the head without contrast. Radiation optimization: All CT scans at this facility use at least one of these dose optimization techniques: automated exposure control; mA and/or kV adjustment per patient size (includes targeted exams where dose is matched to clinical indication); or iterative reconstruction. COMPARISON: No relevant prior studies available. FINDINGS: Brain: Decreased attenuation of the supratentorial white matter is likely secondary to chronic microvascular ischemia. No acute intracranial hemorrhage. Cerebral ventricles: Ventricular and subarachnoid spaces are age appropriate. Bones/joints: Unremarkable. No acute fracture. Paranasal sinuses: Visualized sinuses are unremarkable. No fluid levels. Mastoid air cells: Partial opacification of the bilateral mastoid air cells. Vasculature: Intracranial vascular calcification. Soft tissues: Unremarkable. IMPRESSION: No acute intracranial abnormality. THIS DOCUMENT HAS BEEN ELECTRONICALLY SIGNED BY JOHNNY WOLF MDThis document has been electronically signed by Johnny Wolf MD on 12/26/2019 11:19 PM Name Value Range Interpretation Code Description Data [place] rce(s) Supporting Document(s) ID Date Data Source [id number] 12/26/2019 10:15:41 PM [facility] Name Value Range Interpretation Code Description Data [place] rce(s) Supporting Document(s) Lactate [Moles/volume] in Serum or Plasma 1.2 mmol/l 0.5-2.2 [facility] ID Date Data Source [id number] 12/26/2019 08:18:20 PM [facility] Name Value Range Interpretation Code Description Data [place] rce(s) Supporting Document(s) Lactate [Moles/volume] in Serum or Plasma 1.3 mmol/l 0.5-2.2 [facility] ID Date Data Source [id number] 12/26/2019 06:45:31 PM [facility] Value Range Interpretation Code Description Data [place] rce(s) Supporting Document(s) Glucose [Mass/volume] in Capillary blood by Glucometer 84 mg/dL 70- 140 [facility] ID Date Data Source [id number] 12/26/2019 05:24:25 PM [facility] Value Range Interpretation Code Description Data [place] rce(s) Supporting Document(s) Glucose [Mass/volume] in Capillary blood by Glucometer 68 mg/dL 70- 140 L [facility] ID Date Data Source [id number] 12/26/2019 05:08:12 PM [facility] XR ABDOMEN AP ERECT ONLY [id number] RESU LTInterpreted by:DEONDRE MedranoPROCEDURE INFORMATION: Exam: XR Abdomen, 1 View Exam date and time: 12/26/2019 4:46 PM Age: 74 years old Clinical indication: Diverticulitis of large intestine with perforation and abscess without bleeding; Other: Recent IR guided diverticular abscess drainage- R/O free air TECHNIQUE: Imaging protocol: XR of the abdomen. Views: Frontal supine view of the abdomen. 1 View. COMPARISON: No relevant prior studies available. FINDINGS: Lungs: The lung bases are clear. Gastrointestinal tract: There is mild increased small bowel gas. Intraperitoneal space: No evidence of free air or extraluminal gas.Vasculature: IVC filter in place. Bones/joints: Moderate degenerative changes seen in the lumbar spine. IMPRESSION: No evidence of free air.Probable mild small bowel ileus.THIS DOCUMENT HAS BEEN ELECTRONICALLY SIGNED BY ALPESH ARROYO MDThis document has been electronically signed by DEONDRE Medrano on 12/26/2019 5:08 PM Name Value Range Interpretation Code Description Data [place] rce(s) Supporting Document(s) ID Date Data Source [id number] 12/28/2019 10:07:10 AM EDT [facility] Service Cmnt XXX-Imp : NoneGram Stn XXX : No WBC's Seen4+Gram positive cocciin pairs2+Gram negative rodsMicroorganism XXX Cult : 2+Escherichia coliOrganism of questionable significance. No further workup of4+Streptococcus gallolyticus ssp pasteurianus Name Value Range Interpretation Code Description Data [place] rce(s) Supporting Document(s) ID Date Data Source [id number] 12/26/2019 04:39:22 PM EDT [facility] Name Value Range Interpretation Code Description Data [place] rce(s) Supporting Document(s) Leukocytes [#/volume] in Blood by Automated count 6.5 10*3/uL 4-10 [facility] Erythrocytes [#/volume] in Blood by Automated count 4.29 10*6/uL 4.1- 5.3 [facility] Hemoglobin [Mass/volume] in Blood 12.6 g/dL 11.5-15.5 [facility] Hematocrit [Volume Fraction] of Blood by Automated count 39.0 % 3 6-45 [facility] Erythrocyte mean corpuscular volume [Entitic volume] by Auto mated count 91.1 fL 80-96 [facility] Erythrocyte mean corpuscular hemoglobin [Entitic mass] by Automated count 29.4 pg 27-33 [facility] Erythrocyte mean corpuscular hemoglobin concentration [Mass/volume] by Automated count 32.2 g/dL 32.0-36.0 [facility] [Ratio] by Automated count 17.3 % 11.5-14.5 H [facility] Platelets [#/volume] in Blood by Automated count 280 10*3/uL 150-400 [facility] Differential cell count method - Blood [facility] Neutrophils/100 leukocytes in Blood by Automated count 96 % [facility] Lymphocytes/100 leukocytes in Blood by Automated count 3 % [facility] Monocytes/100 leukocytes in Blood by Automated count 1 % [facility] Eosinophils/100 leukocytes in Blood by Automated count 0 % [facility] Basophils/100 leukocytes in Blood by Automated count 0 % [facility] Neutrophils [#/volume] in Blood by Automated count 6.20 10*3/uL 1.8-7 .0 [facility] Lymphocytes [#/volume] in Blood by Automated count 0.22 10*3/uL 1.2-4 .0 L [facility] Monocytes [#/volume] in Blood by Automated count 0.03 10*3/uL 0-0.8 [facility] Eosinophils [#/volume] in Blood by Automated count 0.00 10*3/uL 0-0.5 [facility] Basophils [#/volume] in Blood by Automated count 0.02 10*3/uL 0-0.2 [facility] Nucleated erythrocytes/100 leukocytes [Ratio] in Blood by Automated count 0 /100{WBCs} 0-0 [facility] ID Date Data Source [id number] 12/26/2019 05:03:11 PM EDT [facility] Name Value Range Interpretation Code Description Data [place] rce(s) Supporting Document(s) Bicarbonate [Moles/volume] in Serum 19 mmol/L 22-29 L [facility] Chloride [Moles/volume] in Serum or Plasma 103 mmol/L 98-107 [facility] Creatinine [Mass/volume] in Serum or Plasma 0.92 mg/dL 0.50-0.90 H [facility] Glucose [Mass/volume] in Serum or Plasma 83 mg/dL 70-140 [facility] Potassium [Moles/volume] in Serum or Plasma 3.4 mmol/L 3.4-5.1 [facility] Sodium [Moles/volume] in Serum or Plasma 137 mmol/L 136-145 [facility] Urea nitrogen [Mass/volume] in Serum or Plasma 28 mg/dL 8-23 H [facility] Anion gap 3 in Serum or Plasma 15 mmol/L 8-15 [facility] Osmolality of Serum or Plasma by calculation 289 mosm/kg 275-300 [facility] Creatinine/Urea nitrogen [Mass Ratio] in Serum or Plasma 30 [facility] Calcium [Mass/volume] in Serum or Plasma 9.0 mg/dL 8.8-10.2 [facility] Glomerular filtration rate/1.73 sq M pre dicted among non-blacks [Volume Rate/Area] in Serum or Plasma by Creatinine-based formula (MDRD) 60 mL/min/1.73m2 >60 L [facility] Glomerular filtration rate/1.73 sq M pre dicted among blacks [Volume Rate/Area] in Serum or Plasma by Creatinine-based formula (MDRD) 70 mL/min/1.73m2 >60 [facility] ID Date Data Source [id number] [facility] Value [facility] Interpretation Code Description Data [place] rce(s) Supporting Document(s) Lactate [Moles/volume] in Serum or Plasma 3.2 mmol/l 0.5-2.2 H [facility] ID Date Data Source [id number] 12/31/2019 09:09:37 AM [facility] Service Cmnt XXX-Imp : R HANDMicroorgani sm XXX Cult : Smear: Gram positive rods suggestive of Corynebacterium species.in anaerobic broth.Called to and read back byBERE PENNY RN ON 6B AT 1500 ON 12/29/2019 BY Bobby johnsin anaerobic broth. Name Value Range Interpretation Code Description Data [place] rce(s) Supporting Document(s) ID Date Data Source [id number] 12/31/2019 08:27:27 AM [facility] Cmnt XXX-Imp : L HANDMicroorgani sm XXX Cult : No growth 5 days Name Value Range Interpretation Code Description Data [place] rce(s) Supporting Document(s) ID Date Data Source [id number] 12/26/2019 10:48:37 AM [facility] Name Value Range Interpretation Code Description Data [place] rce(s) Supporting Document(s) [facility] OACYDl0nWyJETzEjq7PmZuQpUVFhBF1atpg3C3V0cGQvQ8NreUHbd8muD9BiX1YfCCSiRCCOLC3JbTNp jb2 [file] 6aCSkweLLm8YYc4k/uSgVTl9BTg/K/Long-Term+M1NdGch9 [file] maPr9nzEL6UFNvSzmBOj9Uu6PlmsK9qpEyQeX4RyibJtOeCK9I ID Date Data Source [id number] 12/26/2019 10:24:34 AM EDT [facility] XR CHEST FRONTAL ONLY [id number] RESULTI nterpreted by:Juan Thomason MDINDICATION: 74-year-old female presenting for initial radiographic evaluation of wheezing.TECHNIQUE: A single AP view of the chest was obtained.COMPARISON: None.FINDINGS/IMPRESSION: Heart: The cardiomediastinal silhouette appears normal. There is moderate atherosclerotic vascular calcification of the aortic arch.Lungs: There are low lung volumes bilaterally. No focal aeration abnormality is seen in the lungs.Pleura: There is no evidence of pleural effusion or pneumothorax.Bones: There are moderate degenerative changes of the right acromioclavicular joint and the visualized spine. The visualized osseous structures otherwise are intact.This document has been electronically signed by Ron Mejia MD on 12/26/2019 10:22 AM Name Value Range Interpretation Code Description Data [place] rce(s) Supporting Document(s) ID Date Data Source [id number] 12/26/2019 10:15:56 AM EDT [facility] Name Value Range Interpretation Code Description Data [place] rce(s) Supporting Document(s) History and Physical [facility] XYLGIn3qOuAOSfQe28/SCOiiBORzp7KuCUneRYb0LNsjYCHhE9WaHEV9fL5jXFM3WPgJDjWqMbMsKKB4 lbm [file] JVcqNtmLQJ/i9/+xc7CSYCljnTGUWUm8wRmhpm [file] AgICAgICAgICAgICAgICAgICAgICAgICAgICAgICAgICAgICAgICAgICAgICAgICAgICAgICAgICAgIC AgICAgICAgICAgICAgICAgICAgICAgICAgICAgICAgICAgICANCiAgICAgICAgICAgICAgICAgICAgIC AgICAgICAgICAgICAgICAgICAgICAgICAgICAgICAg ICAgICAgICAgICAgICAgICAgICAgICAgICAgICAgICAgICAgICAgICAgICAgICANCiAgICAgICAgICAg ICAgICAgICAgICAgICAgICAgICAgICAgICAgICAgICAgICAgICAgICAgICAgICAgICAgICAgICAgICAg ICAgICAgICAgICAgICAgICAgICAgICAgICAgICANCi AgICAgICAgICAgICAgICAgICAgICAgICAgICAgICAgICAgICAgICAgICAgICAgICAgICAgICAgICAgIC AgICAgICAgICAgICAgICAgICAgICAgICAgICAgICAgICAgICAgICANCiAgICAgICAgICAgICAgICAgIC AgICAgICAgICAgICAgICAgICAgICAgICAgICAgICAg ICAgICAgICAgICAgICAgICAgICAgICAgICAgICAgICAgICAgICAgICAgICAgICAgICANCiAgICAgICAg ICAgICAgICAgICAgICAgICAgICAgICAgICAgICAgICAgICAgICAgICAgICAgICAgICAgICAgICAgICAg ICAgICAgICAgICAgICAgICAgICAgICAgICAgICAgIC ANCiAgICAgICAgICAgICAgICAgICAgICAgICAgICAgICAgICAgICAgICAgICAgICAgICAgICAgICAgIC AgICAgICAgICAgICAgICAgICAgICAgICAgICAgICAgICAgICAgICAgICANCiAgICAgICAgICAgICAgIC AgICAgICAgICAgICAgICAgICAgICAgICAgICAgICAg ICAgICAgICAgICAgICAgICAgICAgICAgICAgICAgICAgICAgICAgICAgICAgICAgICAgICANCiAgICAg ICAgICAgICAgICAgICAgICAgICAgICAgICAgICAgICAgICAgICAgICAgICAgICAgICAgICAgICAgICAg ICAgICAgICAgICAgICAgICAgICAgICAgICAgICAgIC AgICANCiAgICAgICAgICAgICAgICAgICAgICAgICAgICAgICAgICAgICAgICAgICAgICAgICAgICAgIC AgICAgICAgICAgICAgICAgICAgICAgICAgICAgICAgICAgICAgICAgICAgICANCjw/wRGkO7iiuICerp M3T7ckIb1PWx3LYJ6ha7WsMEIqLNthtoWnCyzKUdNg BCJbEelWGgq0VLqgPV8UrHXmV1DlJ0QlHAgrAA5JMYAsGUYaxTBhYCGgTRXuMaY4JHNoCRgdLJ0VhDXw VSyrWHKfUPXmQsUwBVNoHFTeSFQeDZIkDEOOBQ2APyNuM3LtgK21RZLLYw5+DQplbmRvYmoNCjMxIDAg y9FmLGv7LQ0KFADvCadrd6PvNaSrLQBXIXdnGZ3FHE A0IQPnSIKeTs2TCQEeJ601eiBqQZ0GIv2XPwDdAP7njk1UMnDcBJAfRqgREjz2QLibTF1BgEWuZOgKLp NbExwiLA46z08fja5aFKn9HWHwni4lTKUTCcFvkQAzGB6lQi1nLUKsDWXhMbB5LZIUTH6AKIPaXXWicS AcYBLbLOXKSQ4RUEfdBGW3ABWtokZypAJyZOpoAA0O YXJlbnQgMzEgMCBSDQo+Fm4DFC9sc7ShQNjnPoBoSC5hct3AFXpZElSeC6C7uNJfS1U2ZBwdZm3EYGRg HOZtIcqdMTBWLHtuPB7NYW5esvC4CX2LnIXhVXMaGREnsLTuJXs3T61siXEwVCsfDA3ACBV+Scarlett+Pg0K LUBeAIZlJFNzJxQnQIRBWgEjR6JrK1DTf1CgQ0HaUN 86rWioixOnODzlTD9CQC0iAMSxXXFVTG7VnFEvwW8gflWgUAVhIHGFCdOmR86qrKAnWSFiSWQpYUSeBx 3FJRFvR5GvylPumIbvcoVrLWCbZZULJV0ISZvdbvZlkWYtbArdLP26yNalBO7WPq3AYfPqNZ7egj6XfJ AuPm9GGGQmKE1TQILmFYIeTOYbIVF7UOYiJqPoQNiw XBGgFVRiCSR4VINmOCIsWL4LQeYwODKhGkL7EbDmTDYnSMVodq8XGRRuMZFdPejyOePcFAStHKRfCJvb WGFqUUZqVIC5IAZlZEKnDU8YWnDeOWCjJPJiAUEgHGKvCOEexz9ZJFVhIYMgENEdWOMnGQFgQHDaMSof GSJoXSN3BfJuVFErLMDiKY5ETtHsWDYzEWk0HgAcVQ JuOTSisi8UJNEoIKLvGXbbQJLwREWqMBCoUVigAVZaPZZjKSJvLPBbNXSuFC4XLiKkPDYyHMKfCWacYH CpKZZhum0IHJOfNHGcJdEoUrLnUWKdIJBsOQiaMGKrMPX6JtssPMBiSLAbRG0NHpCdNOVkGJW9TkPqYW MkOLHvcp0RNQCdHRSfRYE4EjEiYXHhDVQbBMukIOWg AWJ1PuKjNMOqQDAlRJ0ERrZpTWQqPRB8UBTtASKsSLLoaj0QFZGuELMrHtEjQoDpTAVkNPRyZGgkBHQm MLP6MCEqDRJgXCJvZP2AMzObJKLsZXefAUdnDMOfTLKxos5YYHKcNVPrWtY4PaZmYRUaPBAiSZkvEKLi DJV3YnV5EFXnFWJoPV3VGsSzQRTiUgiuJLFhPBXmLX Nvmu8XFXRbYQJtZOL3VVMyFAWbKHOuTOyaQCUzHOV6VVvbZTVwQKPkQP7PBgWbKZZmHej1FbpgFJLeCK Pwsy0BJYFsJXOoCOP0UkNiKMFeRYJcGEksZZOxJHLsApakPMVtYRLuOR1XLuLkXFAiIeN7PBeeDKRzVF Ziwb0YSEGcZVXtFDC8EjAeRZGiVUBqUCqhWAWeDXIf TVW0MREfHIYbRD5KCnUrSMHqTpZ1SQDaVGGoDDYkxd4QYMVgFPZnBzB0ZjWxDORlNPKtHDe9aqXwfKUn YXg1BA4PQ4OlygQpKhGPSf9Xt804KUReAVPmPy2FP4xpPt1oRNHmAPGLUz8GWRm0HqO4C4DzBAG6EYJc FMR2TZExIDB8ETJgLmWaToCpJ9O+IDxiYzUzZDBlMj ciMzS6SGKcZbPaESUcJrAvUWDwVKDlCL0oIRWZXr8+DPdbrJNvcDyxZSBTHzGuOys0QAncAHRQDw6C ID Date Data Source [id number] 12/26/2019 09:52:09 AM EDT [facility] Name Value Range Interpretation Code Description Data [place] rce(s) Supporting Document(s) Leukocytes [#/volume] in Blood by Automated count 20.1 10*3/uL 4-10 H [facility] Erythrocytes [#/volume] in Blood by Automated count 4.01 10*6/uL 4.1- 5.3 L [facility] Hemoglobin [Mass/volume] in Blood 11.8 g/dL 11.5-15.5 [facility] Hematocrit [Volume Fraction] of Blood by Automated count 36.2 % 3 6-45 [facility] Erythrocyte mean corpuscular volume [Entitic volume] by Auto mated count 90.1 fL 80-96 [facility] Erythrocyte mean corpuscular hemoglobin [Entitic mass] by Automated count 29.3 pg 27-33 [facility] Erythrocyte mean corpuscular hemoglobin concentration [Mass/volume] by Automated count 32.5 g/dL [facility].0[facility] width [Ratio] by Automated count 17.1 % 11.5-14.5 H [facility] Platelets [#/volume] in Blood by Automated count 301 10*3/uL 150-400 [facility] Differential cell count method - Blood [facility] Neutrophils/100 leukocytes in Blood by Automated count 92 % [facility] Lymphocytes/100 leukocytes in Blood by Automated count 4 % [facility] Monocytes/100 leukocytes in Blood by Automated count 4 % [facility] Eosinophils/100 leukocytes in Blood by Automated count 0 % [facility] Basophils/100 leukocytes in Blood by Automated count 0 % [facility] Neutrophils [#/volume] in Blood by Automated count 18.59 10*3/uL 1.8- 7.0 H [facility] Lymphocytes [#/volume] in Blood by Automated count 0.74 10*3/uL 1.2-4 .0 L [facility] Monocytes [#/volume] in Blood by Automated count 0.77 10*3/uL 0-0.8 [facility] Eosinophils [#/volume] in Blood by Automated count 0.00 10*3/uL 0-0.5 [facility] Basophils [#/volume] in Blood by Automated count 0.02 10*3/uL 0-0.2 [facility] Nucleated erythrocytes/100 leukocytes [Ratio] in Blood by Automated count 0 /100{WBCs} 0-0 [facility] ID Date Data Source [id number] 12/26/2019 10:13:47 AM EDT [facility] Name Value Range Interpretation Code Description Data [place] rce(s) Supporting Document(s) Bicarbonate [Moles/volume] in Serum 21 mmol/L 22-29 L [facility] Chloride [Moles/volume] in Serum or Plasma 105 mmol/L 98-107 [facility] Creatinine [Mass/volume] in Serum or Plasma 0.85 mg/dL 0.50-0.90 [facility] Glucose [Mass/volume] in Serum or Plasma 76 mg/dL 70-140 [facility] Potassium [Moles/volume] in Serum or Plasma 3.3 mmol/L 3.4-5.1 L [facility] Sodium [Moles/volume] in Serum or Plasma 141 mmol/L 136-145 [facility] Urea nitrogen [Mass/volume] in Serum or Plasma 25 mg/dL 8-23 H [facility] Anion gap 3 in Serum or Plasma 14 mmol/L 8-15 [facility] Osmolality of Serum or Plasma by calculation 294 mosm/kg 275-300 [facility] Creatinine/Urea nitrogen [Mass Ratio] in Serum or Plasma 29 [facility] Calcium [Mass/volume] in Serum or Plasma 9.3 mg/dL 8.8-10.2 [facility] Glomerular filtration rate/1.73 sq M pre dicted among non-blacks [Volume Rate/Area] in Serum or Plasma by Creatinine-based formula (MDRD) 67 mL/min/1.73m2 >60 [facility] Glomerular filtration rate/1.73 sq M pre dicted among blacks [Volume Rate/Area] in Serum or Plasma by Creatinine-based formula (MDRD) 77 mL/min/1.73m2 >60 [facility] ID Date Data Source [id number] 12/26/2019 10:02:36 AM [facility] Name Value Range Interpretation Code Description Data [place] rce(s) Supporting Document(s) Lactate [Moles/volume] in Serum or Plasma 0.9 mmol/l 0.5-2.2 [facility] ID Date Data Source [id number] 12/31/2019 08:27:27 AM [facility] Service Cmnt XXX-Imp : BloodR HANDMicroo rganism XXX Cult : No growth 5 days Name Value Range Interpretation Code Description Data [place] rce(s) Supporting Document(s) ID Date Data Source [id number] 12/31/2019 08:27:27 AM [facility] Cmnt XXX-Imp : BloodL HANDMicroo rganism XXX Cult : No growth 5 days Name Value Range Interpretation Code Description Data [place] rce(s) Supporting Document(s) ID Date Data Source [id number] 12/26/2019 03:57:24 AM T [facility] Name Value Range Interpretation Code Description Data [place] rce(s) Supporting Document(s) Specimen source [Identifier] of Unspecified specimen [facility] SARS-CoV-2 RNA 2018 nCoV Real-Time RT-PCR: NOT DETECTED [facility] Assay Performed [facility] Patients first test for [facility] Patient employed in healthcare setting [facility] Corrected 12/25 AT 0303: Previous Result was UNKNOWN Patient has symptoms related to [facility] When did you start to experience these symptoms [Date and time] [PhenX] [id number] [facility] Patient was hospitalized because of this [facility] patient was admitted to ICU for [facility] Patient resides in a congregate care setting [facility] status [facility] ID Date Data Source [id number] 12/26/2019 02:23:00 AM [facility] Value Range Interpretation Code Description Data [place] rce(s) Supporting Document(s) SARS-CoV-2 RNA [facility] This lab was ordered by [facility] and reported by [facility]. ID Date Data Source [id number] 12/26/2019 03:04:48 AM [facility] Value Range Interpretation Code Description Data [place] rce(s) Supporting Document(s) Prothrombin time (PT) 26.1 s 12.5-14.9 H [facility] INR in Platelet poor plasma by Coagulation assay 2.34 [facility] Routine intensity oral anticoagulation I NR is typically 2.0-3.0. Target INR must be clinically individualized. ID Date Data Source [id number] 12/26/2019 03:14:24 AM [facility] Name Value Range Interpretation Code Description Data [place] rce(s) Supporting Document(s) Leukocytes [#/volume] in Blood by Automated count 20.7 10*3/uL 4-10 H [facility] Erythrocytes [#/volume] in Blood by Automated count 4.29 10*6/uL 4.1- 5.3 [facility] Hemoglobin [Mass/volume] in Blood 12.8 g/dL 11.5-15.5 [facility] Hematocrit [Volume Fraction] of Blood by Automated count 39.2 % 3 6-45 [facility] Erythrocyte mean corpuscular volume [Entitic volume] by Auto mated count 91.4 fL 80-96 [facility] Erythrocyte mean corpuscular hemoglobin [Entitic mass] by Automated count 29.9 pg 27-33 [facility] Erythrocyte mean corpuscular hemoglobin concentration [Mass/volume] by Automated count 32.7 g/dL 32.0-36.0 [facility] Erythrocyte distribution width [Ratio] by Automated count 17.1 % 11.5-14.5 H [facility] Platelets [#/volume] in Blood by Automated count 312 10*3/uL 150-400 [facility] Differential cell count method - Blood [facility] Neutrophils/100 leukocytes in Blood by Automated count 92 % [facility] Lymphocytes/100 leukocytes in Blood by Automated count 4 % [facility] Monocytes/100 leukocytes in Blood by Automated count 4 % [facility] Eosinophils/100 leukocytes in Blood by Automated count 0 % [facility] Basophils/100 leukocytes in Blood by Automated count 0 % [facility] Neutrophils [#/volume] in Blood by Automated count 19.09 10*3/uL 1.8- 7.0 H [facility] Lymphocytes [#/volume] in Blood by Automated count 0.79 10*3/uL 1.2-4 .0 L [facility] Monocytes [#/volume] in Blood by Automated count 0.82 10*3/uL 0-0.8 H [facility] Eosinophils [#/volume] in Blood by Automated count 0.00 10*3/uL 0-0.5 [facility] Basophils [#/volume] in Blood by Automated count 0.05 10*3/uL 0-0.2 [facility] Nucleated erythrocytes/100 leukocytes [Ratio] in Blood by Automated count 0 /100{WBCs} 0-0 [facility] ID Date Data Source [id number] 12/26/2019 03:53:38 AM EDT [facility] Hospital Name Value Range Interpretation Code Description Data [place] rce(s) Supporting Document(s) Albumin [Mass/volume] in Serum or Plasma by Bromocresol green (BCG) dye binding method 2.8 g/dL 3.5-5.2 L [facility] Bilirubin.total [Mass/volume] in Serum or Plasma 0.5 mg/dL <1.2 [facility] Bilirubin.direct [Mass/volume] in Serum or Plasma 0.2 mg/dL <0.3 [facility] Alkaline phosphatase [Enzymatic activity/volume] in Serum or Plasma 54 U/L 35-104 [facility] Aspartate aminotransferase [Enzymatic activity/volume] in Serum or Plasma 21 U/L <32 [facility] Alanine aminotransferase [Enzymatic activity/volume] in Seru m or Plasma 5 U/L <33 [facility] Protein [Mass/volume] in Serum or Plasma 6.5 g/dL 6.4-8.3 [facility] ID Date Data Source [id number] 12/26/2019 03:53:38 AM [facility] Name Value Range Interpretation Code Description Data [place] rce(s) Supporting Document(s) Magnesium [Mass/volume] in Serum or Plasma 1.8 mg/dL 1.6-2.4 [facility] ID Date Data Source [id number] 12/26/2019 03:53:38 AM [facility] Name Value Range Interpretation Code Description Data [place] rce(s) Supporting Document(s) Phosphate [Mass/volume] in Serum or Plasma 3.1 mg/dL 2.5-4.5 [facility] ID Date Data Source [id number] 12/26/2019 03:53:38 AM [facility] Name Value Range Interpretation Code Description Data [place] rce(s) Supporting Document(s) Bicarbonate [Moles/volume] in Serum 21 mmol/L 22-29 L [facility] Chloride [Moles/volume] in Serum or Plasma 104 mmol/L 98-107 [facility] Creatinine [Mass/volume] in Serum or Plasma 0.71 mg/dL 0.50-0.90 [facility] Glucose [Mass/volume] in Serum or Plasma 76 mg/dL 70-140 [facility] Potassium [Moles/volume] in Serum or Plasma 3.4 mmol/L 3.4-5.1 [facility] Sodium [Moles/volume] in Serum or Plasma 139 mmol/L 136-145 [facility] Urea nitrogen [Mass/volume] in Serum or Plasma 21 mg/dL 8-23 [facility] Anion gap 3 in Serum or Plasma 14 mmol/L 8-15 [facility] Osmolality of Serum or Plasma by calculation 290 mosm/kg 275-300 [facility] Creatinine/Urea nitrogen [Mass Ratio] in Serum or Plasma 30 [facility] Calcium [Mass/volume] in Serum or Plasma 8.8 mg/dL 8.8-10.2 [facility] Glomerular filtration rate/1.73 sq M pre dicted among non-blacks [Volume Rate/Area] in Serum or Plasma by Creatinine-based formula (MDRD) 84 mL/min/1.73m2 >60 [facility] Glomerular filtration rate/1.73 sq M pre dicted among blacks [Volume Rate/Area] in Serum or Plasma by Creatinine-based formula (MDRD) >60 [facility] ID Date Data Source [id number] 12/26/2019 03:56:43 AM EDT [facility] Service Cmnt XXX-Imp : NoneRespiratory P CR Panel : PCR ResultsMicroorganism XXX Cult : See Labs Tab for 2019 nCoV RT-PCR resultsHAdV DNA QI [place]+non-probe : Not DetectedHCoV [id number] Nph QI [place]+non-probe : Not DetectedHCoV [id number] Nph QI [place]+non-probe : Not VecxukrySUdCBD98 RNA Nph QI [place]+non-probe : Not ZvsxkbpfZDiQEL89 RNA Upper resp QI [place]+probe : Not DetectedhMPV RNA Nph QINAA+non-probe : Not DetectedRV+EV RNA Nph QI [place]+non-probe : Not DetectedFLUAV RNA Nph QI [place]+ non-probe : Not DetectedFLUBV RNA Nph QI [place]+non-probe : Not DetectedHPIV1 RNA NphQINAA+non-probe : Not DetectedHPIV2 RNA Nph QINAA+non-probe : Not DetectedHPVI3 RNA Nph [place]+non-probe : Not DetectedHPIV4 RNA Nph Q [place]+non- probe : Not DetectedRSV RNA Nph Q [place]+non-probe : Not DetectedB pert.PT PrmtNph Q [place]+non-probe : Not DetectedC pneum DNA Nph Q [place]+non-probe : Not DetectedM pneum DNA Nph Q [place]+non-probe : Not DetectedB rglmxQX820 DNA Nph [place]+non-probe : Not Detected Name Value Range Interpretation Code Description Data [place] rce(s) Supporting Document(s) ID Date Data Source [id number] 12/25/2019 08:04:59 PM EDT [facility] Name Value Range Interpretation Code Description Data [place] rce(s) Supporting Document(s) Progress Note [facility] BGRVMw8jIpEAUfYs69/VHHjwEQGmm7YrBJdlAYb1VOlcKXZmZ1GpASG4gE9aXIP2FZqAJpKdVhWzGSP2 lbm [file] m9DVKzRYczZI1xLDESCl4+UNcpcVBzjVfpMMLFWqlzFgGLHhJxOD9VWGe= ID Date Data Source SYPHILIS ANTIBODY (RPR SCREEN) 03/18/2019 12:00:00 AM EST eC W1 ([facility]) Name Value Range Interpretation Code Description Data [place] rce(s) Supporting Document(s) NONREACTIVE NONREACTIVE SYPHILIS eCW1 ([facility]) ID Date Data Source VITAMIN D [id number] 03/18/2019 12:00:00 AM EST eCW1 ([facility]) Name Value Range Interpretation Code Description Data [place] rce(s) Supporting Document(s) 31.7 30.0-100.0 TOTAL 25(OH) VITAMIN D eC W1 ([facility]) ID Date Data Source VITAMIN B12 LEVEL 03/18/2019 12:00:00 AM EST eCW1 ([facility]) Name Value Range Interpretation Code Description Data [place] rce(s) Supporting Document(s) 336 105-716 VITAMIN B12 LEVEL eCW1 ([facility]) ID Date Data Source TSH 03/18/2019 12:00:00 AM EST eCW1 ([facility]) Name Value Range Interpretation Code Description Data [place] rce(s) Supporting Document(s) 5.080 0.358-3.740 THYROID STIMULATING HORM ONE eCW1 ([facility]) ID Date Data Source ERYTHROCYTE SEDIMENTATION RATE 03/18/2019 12:00:00 AM EST eC W1 ([facility]) Name Value Range Interpretation Code Description Data [place] rce(s) Supporting Document(s) 46 0-30 ERYTHROCYTE SEDIMENTATION RATE eCW1 ([facility]) ID Date Data Source Basic Metabolic Profile (BMP) 03/18/2019 12:00:00 AM EST eCW 1 ([facility]) Name Value Range Interpretation Code Description Data [place] rce(s) Supporting Document(s) 89 70-100 GLUCOSE, FASTING eCW1 ([facility]) 1.00 0.55-1.30 CREATININE FOR GFR eCW1 ([facility]) 16 7-18 BLOOD UREA NITROGEN eCW1 ([facility]) 140 136-145 SODIUM LEVEL eCW1 ([facility]) 3.9 3.5-5.1 POTASSIUM SERUM eCW1 ([facility]) 58.0 >39 GLOMERULAR FILTRATION RATE eCW 1 ([facility]) 106 98-107 CHLORIDE LEVEL eCW1 ([facility]) 8.7 8.8-10.2 CALCIUM LEVEL eCW1 ([facility]) 29 21-32 CARBON DIOXIDE LEVEL eCW1 ([facility]) ID Date Data Source C REACTIVE PROTEIN QUANTITATIV ([facility]) 03/18/2019 12:00 :00 AM EST eCW1 ([facility]) Name Value Range Interpretation Code Description Data [place] rce(s) Supporting Document(s) 1.05 0.00-0.30 C REACTIVE PROTEIN QUANTI TATIV eCW1 ([facility]) ID Date Data Source CBC with Differential 03/18/2019 12:00:00 AM EST eCW1 ([facility]) Name Value Range Interpretation Code Description Data [place] rce(s) Supporting Document(s) 5.8 4.0-10.0 WHITE BLOOD COUNT eCW1 ([facility]) 4.61 4.00-5.40 RED BLOOD COUNT eCW1 ([facility]) 13.6 12.0-15.5 HEMOGLOBIN eCW1 ([facility]) 43.9 36.0-47.0 HEMATOCRIT eCW1 ([facility]) 95.2 80.0-96.0 MEAN CORPUSCULAR VOLUME e CW1 ([facility]) 15.5 11.5-14.5 RED CELL DISTRIBUTION WID TH eCW1 ([facility]) 31.0 32.0-36.5 MEAN CORPUSCULAR HGB CONC eCW1 ([facility]) 29.5 27.0-33.0 MEAN CORPUSCULAR HEMOGLOB IN eCW1 ([facility]) 21.8 24.0-44.0 LYMPH % eCW1 ([facility]) 343 150-450 PLATELET COUNT, AUTOMATED eCW1 ([facility]) 59.7 36.0-66.0 NEUTROPHILS % eCW1 ([facility]) 1.2 0.0-1.0 BASO % eCW1 ([facility]) 6.8 0.0-3.0 EOS % eCW1 ([facility]) 10.2 0.0-5.0 MONO % eCW1 ([facility]) 3.4 1.5-8.5 NEUTROPHILS # eCW1 ([facility]) 1.3 1.5-5.0 LYMPH # eCW1 ([facility]) 0.6 0.0-0.8 MONO # eCW1 ([facility]) 0.4 0.0-0.5 EOS # eCW1 ([facility]) 0.1 0.0-0.2 BASO # eCW1 ([facility]) ID Date Data Source NT-PRO BNP 03/18/2019 12:00:00 AM EST eCW1 ([facility]) Name Value Range Interpretation Code Description Data [place] rce(s) Supporting Document(s) 271 <125 NT-PRO BNP eCW1 ([facility]) Procedure Social History Code Duration Value Status Description Data Source(s ) Alcohol intake 03/16/2020 12:00:00 AM EST Ex-drinker (finding) comp leted Ex- drinker (finding) [facility] Tobacco use and exposure 03/16/2020 12:00:00 AM EST Never used co mpleted Never used [facility] Smoking 03/16/2020 12:00:00 AM EST Former smoker completed Former smoker [facility] Alcohol intake 12/28/2019 12:00:00 AM EDT Ex-drinker (finding) comp leted Ex- drinker (finding) [facility] Smoking 07/01/2019 12:00:00 AM EDT Former Smoker completed Former Smoker eCW1 ([facility]) Smoking 07/01/2019 12:00:00 AM EDT Former Smoker completed Former Smoker eCW1 ([facility]) Vital Signs ID Date Data Source UNK Name Value Range Interpretation Code Description Data Source(s) Diastolic blood pressure 70 mm[Hg] 70 mm[Hg] eCW1 ([facility]) Systolic blood pressure 120 mm[Hg] 120 mm[Hg] e CW1 ([facility]) Body temperature 97.3 [degF] 97.3 [degF] eCW1 ( [facility]) Respiratory rate 20 /min 20 /min eCW1 ([facility]) Heart rate 92 /min 92 /min eCW1 ([facility]) Body mass index (BMI) [Ratio] 32.55 kg/m2 32.55 kg/m2 eCW1 ([facility]) Body height 62 [in_us] 62 [in_us] eCW1 ([facility]) Body weight Measured 178 [lb_av] 178 [lb_av] eC W1 ([facility]) Body weight 80.287 kg 80.287 kg MEDENT ([facility], ) Body mass index (BMI) [Ratio] 32.4 kg/m2 32.4 k g/m2 MEDENT ([facility], ) Body weight 177.00 [lb_av] 177.00 [lb_av] MEDEN T ([facility], ) Body height 62 [in_i] 62 [in_i] MEDENT ([facility], ) 5'2" Diastolic blood pressure 74 mm[Hg] 74 mm[Hg] MEDENT ([facility]) Systolic blood pressure 148 mm[Hg] 148 mm[Hg] M EDENT ([facility], ) Diastolic blood pressure 67 mm[Hg] 67 mm[Hg] eCW1 ([facility]) Systolic blood pressure 148 mm[Hg] 148 mm[Hg] e CW1 ([facility]) Body temperature 98.0 [degF] 98.0 [degF] eCW1 ( [facility]) Respiratory rate 19 /min 19 /min eCW1 ([facility]) Heart rate 91 /min 91 /min eCW1 ([facility]) Body mass index (BMI) [Ratio] 30.18 kg/m2 30.18 kg/m2 eCW1 ([facility]) Body height 62 [in_us] 62 [in_us] eCW1 ([facility]) Body weight Measured 165 [lb_av] 165 [lb_av] eC W1 ([facility]) Diastolic blood pressure 70 mm[Hg] 70 mm[Hg] eCW1 ([facility]) Systolic blood pressure 130 mm[Hg] 130 mm[Hg] e CW1 ([facility]) Body temperature 96.3 [degF] 96.3 [degF] eCW1 ( [facility]) Respiratory rate 18 /min 18 /min eCW1 ([facility]) Heart rate 93 /min 93 /min eCW1 ([facility]) Body mass index (BMI) [Ratio] 30.18 kg/m2 30.18 kg/m2 eCW1 ([facility]) Body height 62 [in_us] 62 [in_us] eCW1 ([facility]) Body weight Measured 165 [lb_av] 165 [lb_av] eC W1 ([facility]) Diastolic blood pressure 61 mm[Hg] 61 mm[Hg] eCW1 ([facility]) Systolic blood pressure 135 mm[Hg] 135 mm[Hg] e CW1 ([facility]) Body temperature 96.6 [degF] 96.6 [degF] eCW1 ( [facility]) Respiratory rate 18 /min 18 /min eCW1 ([facility]) Heart rate 77 /min 77 /min eCW1 ([facility]) Body mass index (BMI) [Ratio] 29.44 kg/m2 29.44 kg/m2 eCW1 ([facility]) Body height 62 [in_us] 62 [in_us] eCW1 ([facility]) Body weight Measured 161 [lb_av] 161 [lb_av] eC W1 ([facility]) Diastolic blood pressure 60 mm[Hg] 60 mm[Hg] eCW1 ([facility]) Systolic blood pressure 140 mm[Hg] 140 mm[Hg] e CW1 ([facility]) Body temperature 98.2 [degF] 98.2 [degF] eCW1 ( [facility]) Respiratory rate 18 /min 18 /min eCW1 ([facility]) Heart rate 96 /min 96 /min eCW1 ([facility]) Body mass index (BMI) [Ratio] 32.19 kg/m2 32.19 kg/m2 eCW1 ([facility]) Body height 62 [in_us] 62 [in_us] eCW1 ([facility]) Body weight Measured 176 [lb_av] 176 [lb_av] eC W1 ([facility]) Diastolic blood pressure 76 mm[Hg] 76 mm[Hg] eCW1 ([facility]) Systolic blood pressure 138 mm[Hg] 138 mm[Hg] e CW1 ([facility]) Body temperature 97.6 [degF] 97.6 [degF] eCW1 ( [facility]) Respiratory rate 18 /min 18 /min eCW1 ([facility]) Heart rate 90 /min 90 /min eCW1 ([facility]) Body mass index (BMI) [Ratio] 33.10 kg/m2 33.10 kg/m2 eCW1 ([facility]) Body height 62 [in_us] 62 [in_us] eCW1 ([facility]) Body weight Measured 181 [lb_av] 181 [lb_av] eC W1 ([facility]) ID Date Data Source [id number] 03/16/2020 09:44:32 PM [facility] Name Value Range Interpretation Code Description Data Source(s) WEIGHT RECORDED 140 lb 140 lb [facility] Body height Measured 62 in 62 in [facility] ID Date Data Source [id number] 01/14/2020 10:38:03 AM [facility] Name Value Range Interpretation Code Description Data Source(s) WEIGHT RECORDED 160.94 lb 160.94 lb [facility] Body height Measured 62 in 62 in [facility] TRANSFER FROM [facility] ID Date Data Source [id number] 12/26/2019 04:47:20 PM [facility] Name Value Range Interpretation Code Description Data Source(s) TRANSFER FROM [facility] Patient Treatment Plan of Care Planned Activity Planned Date Details Description Data Source (s) pantoprazole 40 MG Delayed Release Oral Tablet 01/10/2020 12:00:00 AM [facility] TPN adult 01/09/2020 07:00:[address] [facility] Continue current TPN formula [facility] 8.6 MG Oral Tablet 01/09[facility]2020 [facility] Sulfate HFA 108 (90 Base) MCG/ ACT Inhalation Aerosol Solution (PROVENTIL HFA) [facility] MG Oral Tablet 01/08/2020 02:30:03 PM [facility] albuterol (PROVENTIL HFA) inhaler 2 puff 01/07/2020 07:49:00 AM [facility] sodium chloride (preservative free) 0.9 % flush 10 mL [facility]/03[facility] MG Injection 01/02/2020 12:52:24 PM [facility] Glucose 0.417 MG/MG Oral Gel 01/02/2020 12:52:24 PM [facility] Piperacillin 3000 MG / tazobactam 375 MG Injection 12/29/2019 12 :00:00 AM [facility] influenza vac split quad (FLUARIX) injection 6 months and older 0.5 mL 12/26/2019 01:41:29 AM EDT [facility] olopatadine 2 MG/ML Ophthalmic Solution 07/03/2019 12:00:00 AM EDT eCW1 ([facility]) olopatadine 2 MG/ML Ophthalmic Solution 07/03/2019 12:00:00 AM EDT eCW1 ([facility]) olopatadine 2 MG/ML Ophthalmic Solution 07/03/2019 12:00:00 AM EDT eCW1 ([facility]) olopatadine 1 MG/ML Ophthalmic Solution 07/01/2019 12:00:00 AM EDT eCW1 ([facility]) Amlodipine 10 MG Oral Tablet 04/27/2019 12:00:00 AM EST [facility] Apixaban 5 MG 04/27/2019 12:00:00 AM EST eCW1 ([facility]) Rosuvastatin calcium 10 MG Oral Tablet 04/27/2019 12:00:00 AM EST eCW1 ([facility]) 120 ACTUAT Fluticasone propionate 0.11 MG/ACTUAT Meter ed Dose Inhaler [Flovent] 04/27/2019 12:00:00 AM EST eCW1 ([facility]) Amlodipine 10 MG Oral Tablet 04/27/2019 12:00:00 AM EST eCW1 ([facility]) Apixaban 5 MG 04/27/2019 12:00:00 AM EST eCW1 ([facility]) Rosuvastatin calcium 10 MG Oral Tablet 04/27/2019 12:00:00 AM EST eCW1 ([facility]) 120 ACTUAT Fluticasone propionate 0.11 MG/ACTUAT Meter ed Dose Inhaler [Flovent] 04/27/2019 12:00:00 AM EST eCW1 ([facility]) Amlodipine 10 MG Oral Tablet 04/27/2019 12:00:00 AM EST eCW1 ([facility]) Rosuvastatin calcium 10 MG Oral Tablet 04/27/2019 12:00:00 AM EST eCW1 ([facility]) Amlodipine 10 MG Oral Tablet 04/27/2019 12:00:00 AM EST eCW1 ([facility]) Amlodipine 10 MG Oral Tablet 04/27/2019 12:00:00 AM EST eCW1 ([facility]) Rosuvastatin calcium 10 MG Oral Tablet 04/27/2019 12:00:00 AM EST eCW1 ([facility]) Apixaban 5 MG 04/27/2019 12:00:00 AM EST eCW1 ([facility]) 120 ACTUAT Fluticasone propionate 0.11 MG/ACTUAT Meter ed Dose Inhaler [Flovent] 04/27/2019 12:00:00 AM EST eCW1 ([facility]) Apixaban 5 MG 04/27/2019 12:00:00 AM EST eCW1 ([facility]) 120 ACTUAT Fluticasone propionate 0.11 MG/ACTUAT Meter ed Dose Inhaler [Flovent] 04/27/2019 12:00:00 AM EST eCW1 ([facility]) Amlodipine 10 MG Oral Tablet 04/27/2019 12:00:00 AM EST eCW1 ([facility]) Rosuvastatin calcium 10 MG Oral Tablet 04/27/2019 12:00:00 AM EST eCW1 ([facility]) Amlodipine 10 MG Oral Tablet 04/27/2019 12:00:00 AM EST eCW1 ([facility]) Apixaban 5 MG 04/27/2019 12:00:00 AM EST eCW1 ([facility]) Rosuvastatin calcium 10 MG Oral Tablet 04/27/2019 12:00:00 AM EST eCW1 ([facility]) Apixaban 5 MG 04/27/2019 12:00:00 AM EST eCW1 ([facility]) Depend Underwear Large/XL - 03/18/2019 12:00:00 AM EST eCW1 ([facility]) Doxycycline Monohydrate 100 MG Oral Capsule 03/18/2019 12:00:00 AM EST eCW1 ([facility]) Amlodipine 10 MG Oral Tablet [facility]
[2020-04-13 16:45] LABS: ABG BASE EXCESS 2.3 (-2.0-2.0); ABG HCO3 32.9 MEQ/L (22.0-26.0); ABG O2 SATURATION 99.7 % (95.0-99.0); ABG PARTIAL PRESSURE O2 290.5 mmHg (75.0-100.0); ABG STANDARD HCO3 26.6 MEQ/L (22.0-26.0); ABG TOTAL CO2 35.4 MEQ/L (23.0-31.0)
[2020-04-13 16:51] LABS: ABG PARTIAL PRESSURE CO2 80.4 mmHg (35.0-45.0)
[2020-04-13 16:56] LABS: BASO % 0.4 % (0.0-1.0); HEMATOCRIT 50.1 % (36.0-47.0); HEMOGLOBIN 15.6 g/dl (12.0-15.5); LYMPH # 0.5 10^3/uL (1.5-5.0); MEAN CORPUSCULAR HGB CONC 31.1 g/dl (32.0-36.5); MEAN CORPUSCULAR VOLUME 89.8 fl (80.0-96.0); MONO # 0.4 10^3/uL (0.0-0.8); MONO % 4.7 % (0.0-5.0); NEUTROPHILS % 88.4 % (36.0-66.0); PLATELET COUNT, AUTOMATED 264 10^3/uL (150-450); RED BLOOD COUNT 5.58 10^6/uL (4.00-5.40)
[2020-04-13 17:15] LABS: INR 1.16; PROTHROMBIN TIME 15.1 SECONDS (12.5-14.3)
--- NOTE | 2020-04-13 17:19 | REPVR ---
PROCEDURE INFORMATION: Exam: CT Head Without Contrast Exam date and time: 04/13/2020 5:09 PM Age: 74 years old Clinical indication: Pain; Headache; Additional info: R flaccidity TECHNIQUE: Imaging protocol: Computed tomography of the head without contrast. Radiation optimization: All CT scans at this facility use at least one of these dose optimization techniques: automated exposure control; mA and/or kV adjustment per patient size (includes targeted exams where dose is matched to clinical indication); or iterative reconstruction. COMPARISON: CT Head without contrast 09/19/2017 4:43 PM FINDINGS: Brain: There is no acute intracranial hemorrhage, cerebral edema, or midline shift. Minor chronic small vessel ischemic disease is noted in the cerebral white matter. Cerebral ventricles: No hydrocephalus. Bones/joints: No acute fracture. Paranasal sinuses: There is no acute sinusitis. Mastoid air cells: There is partial opacification of the bilateral mastoid air cells. Orbital cavity: Unremarkable as visualized. Vasculature: Atherosclerotic calcifications are seen involving the cavernous carotid arteries. Soft tissues: Unremarkable. IMPRESSION: No acute intracranial abnormality. Electronically signed by: Marvin Marsh On 04/13/2020 17:19:47 PM
[2020-04-13 17:35] LABS: ALBUMIN 2.7 GM/DL (3.2-5.2); ALT/SGPT 30 U/L (12-78); BILIRUBIN,DIRECT 0.2 MG/DL (0.0-0.2); BILIRUBIN,TOTAL 0.5 MG/DL (0.2-1.0); BLOOD UREA NITROGEN 14 MG/DL (7-18); CALCIUM LEVEL 9.7 MG/DL (8.8-10.2); CARBON DIOXIDE LEVEL 31 MEQ/L (21-32); CHLORIDE LEVEL 99 MEQ/L (98-107); CK-MB VALUE MASS 1.1 NG/ML (<3.6); CPK CREATINE PHOSPHOKINASE 52 U/L (26-192); CREATININE FOR GFR 0.42 MG/DL (0.55-1.30); GLOMERULAR FILTRATION RATE > 60.0 (>39); GLUCOSE, FASTING 127 MG/DL (70-100); MB/CK RELATIVE INDEX 2.12 (< OR =4); POTASSIUM SERUM 4.7 MEQ/L (3.5-5.1); SODIUM LEVEL 137 MEQ/L (136-145); TOTAL PROTEIN 7.1 GM/DL (6.4-8.2); TROPONIN I < 0.02 NG/ML (< 0.10)
[2020-04-13 18:34] LABS: ABG BASE EXCESS 1.3 (-2.0-2.0); ABG HCO3 31.5 MEQ/L (22.0-26.0); ABG O2 SATURATION 99.5 % (95.0-99.0); ABG PARTIAL PRESSURE O2 224.6 mmHg (75.0-100.0); ABG STANDARD HCO3 25.7 MEQ/L (22.0-26.0); ABG TOTAL CO2 33.9 MEQ/L (23.0-31.0)
[2020-04-13 18:36] LABS: ABG PARTIAL PRESSURE CO2 76.3 mmHg (35.0-45.0); ABG pH (ARTERIAL) 7.234 UNITS (7.350-7.450)
[2020-04-13] MEDS: FLUTICASONE HFA 110 MCG 12 GM INHALER (FLOVENT) INH SCH (20:00)
[2020-04-13] MEDS ORDERED: APIXABAN 5 MG TAB (ELIQUIS) PO SCH (21:00)
[2020-04-13 21:24] LABS: RSV AMPLIFICATION NEGATIVE (NEGATIVE)
--- OUTSIDE RECORDS SUMMARY | 2020-04-13 23:05 | CCD ---
Author Author [facility] Organization [facility] Address Unknown Phone Unavailable Care Team Providers Care Real Estate Investment Analyst Name Role Phone COLUMBA SWEENEY MD Unavailable [...] Unavailable Unavailable Kalee BENSON MD Unavailable Unavailable WONG, SHANEL MD Unavailable [...] Unavailable Unavailable WONG, SHANEL MD Unavailable Unavailable SHANEL WONG MD Unavailable Unavailable SHANEL WONG MD Unavailable Unavailable SHANEL WONG MD Unavailable Unavailable SHANEL WONG MD Unavailable Unavailable SHANEL WONG MD Unavailable Unavailable SHANEL WONG MD Unavailable Unavailable SHANEL WONG MD Unavailable Unavailable SHANEL WONG MD Unavailable Unavailable RHETT VERONIQUE Unavailable Unavailable Federica Macias MD Unavailable Unavailable Federica Macias MD Unavailable Unavailable Federica Macias MD Unavailable Unavailable Federica Macias MD Unavailable Unavailable Federica Macias MD Unavailable Unavailable Federica Macias MD Unavailable Unavailable Federica Macias MD Unavailable Unavailable Federica Macias MD Unavailable Unavailable Federica Macias MD Unavailable Unavailable Federica Macias MD Unavailable Unavailable Federica Macias MD Unavailable Unavailable Federica Macias MD Unavailable Unavailable Federica Macais MD Unavailable Unavailable Federica Macias MD Unavailable [...] Unavailable Unavailable Federica Macias MD Unavailable Unavailable Maru Cotton Unavailable Unavailable Maru Cotton Unavailable Unavailable Maru Cotton Unavailable Unavailable NO, PCP Unavailable Unavailable Re-disclosure [...] is protected by Article 27-F of the [facility] Public Health law. If you continue you may have access to information: Regarding HIV / AIDS; Provided by facilities licensed or operated by the [facility] Office of Mental Health; or Provided by the [facility] Office for People With Developmental Disabilities. If such information is present, then the following [facility] mandated warning applies: This information has [...] law may result in a fine or mcc sentence or both. A general authorization for the release of medical or other information is NOT sufficient authorization for further disc losure. Allergies and Adverse Reactions Type Description Substance Reaction Status Data Source(s ) Drug Class NO KNOWN ALLERGIES NO KNOWN ALLERGIES [facility] Family History Family Member Name Family Member Gender Family Member Status Date o f Status Description Data Source(s) Unknown Male Problem MEDENT ([facility] () Encounters Encounter Providers Location Date Indications Data Source(s ) Outpatient Attender: Nicho Cotton 05/04/2020 12:00:00 AM [facility] Outpatient Attender: SHANEL WONG MDConsultant: PCP NO 03/14/2020 04:16:00 PM EST - 03/14/2020 04:26:00 PM EST [facility] Outpatient Attender: SHANEL WONG MDConsultant: PCP NO 03/10/2020 12:30:00 PM EST - 03/10/2020 12:40:00 PM EST [facility] Outpatient Attender: SHANEL WONG MDConsultant: PCP NO 03/07/2020 02:17:00 PM EST - 03/07/2020 02:27:00 PM EST [facility] Outpatient Attender: SHANEL WONG MDConsultant: PCP NO 03/03/2020 06:57:00 AM EST - 03/03/2020 07:07:00 AM EST [facility] Outpatient Attender: Nicho Cotton [id number] 03/02 12:00:00 AM [facility] - 03/02/2020 02:59:41 PM EST Diverticulitis of large intestine with p erforation and abscess without bleeding [facility] Diverticulitis of large intestine with p erforation and abscess without bleeding Outpatient Attender: Nicho Cotton 02/24/2020 12:00:00 AM [facility] Outpatient Attender: Nicho Cotton 02/03/2020 12:00:00 AM [facility] Outpatient Attender: SHANEL WONG MDConsultant: PCP NO 02/02/2020 07:45:00 AM [facility] - 02/02/2020 07:55:00 AM [facility] Outpatient Referrer: VERONIQUE DELANEY 01/11/2020 12:00:00 AM [facility] Outpatient Attender: VERONIQUE Chongferrer: VERONIQUE DELANEY 01/08/2020 12:00:00 AM [facility] Unknown [facility] [facility] [address] [facility] Attender: COLUMBA SWEENEY MDReferrer: COLUMBA SWEENEY MD 12/29/2019 12:00:00 AM [facility] Outpatient Attender: COLUMBA SEWENEY MDReferrer: COLUMBA SWEENEY MD 12/29/2019 12:00:00 AM [facility] Inpatient Attender: VERONIQUE Sellers julio cesar: COLUMBA SWEENEY MDAttender: RAUL BENSON MDAdmitter: COLUMBA SWEENEY MDReferrer: COLUMBA SWEENEY MDConsultant: Marin Macias MDConsultant: Manuel Yen MD [id number] 12/26/2019 12 :00:00 AM EDT - 01/09/2020 06:12:00 PM EDT Salmonella sepsis [facility] Salmonella sepsis Patient discharged. Inpatient Attender: COLUMBA SWEENEY MDAdmi tter: RAUL BENSON MDReferrer: COLUMBA SWEENEY MD 12/26/2019 12:00:00 AM EDT diverticulitis with a bscess [facility] diverticulitis with abscess Outpatient Attender: COLUMBA SWEENEY MDReferrer: COLUMBA SWEENEY MD 12/26/2019 12:00:00 AM EDT [facility] Unknown [address] [facility] [address] 12/24/2019 12:00:00 AM EDT [facility] [address] [facility] [address] 10/08/2019 12:00:00 AM EDT [facility] [address] [facility] [address] 07/02/2019 12:00:00 AM EDT [facility] [address] [facility] [address] 07/01/2019 12:00:00 AM EDT [facility]1 [facility] [address] [facility] [address] 06/24/2019 12:00:00 AM EDT [facility]CW1 [facility] Outpatient 06/18/2019 05:43:00 AM EDT [facility] [address] [facility] [address] 06/16/2019 12:00:00 AM EDT [facility] [address] [facility] [address] 06/16/2019 12:00:00 AM EDT [facility] [address] [facility] [address] 05/28/2019 12:00:00 AM EDT eCW1 ([facility]) Outpatient 05/26/2019 11:31:00 AM EDT [facility] [address] [facility] [address] 05/20/2019 12:00:00 AM EDT eCW1 ([facility]) [facility] [address] [facility] [address] 05/19/2019 12:00:00 AM EDT eCW1 ([facility]) Outpatient 05/18/2019 12:57:00 PM EDT [facility] [address] [facility] [address] 05/18/2019 12:00:00 AM EDT eCW1 ([facility] [place]) [facility] [address] [facility] [address] 05/15/2019 12:00:00 AM EST [facility] [address] [facility] [address] 05/06/2019 12:00:00 AM EST eCW1 ([facility]) [facility] [address] [facility] [address] 05/06/2019 12:00:00 AM EST [facility] [address] [facility] [address] 05/06/2019 12:00:00 AM EST [facility] [address] [facility] [address] 05/06/2019 12:00:00 AM EST [facility]CW1 [facility] 05/04/2019 04:35:00 PM EST [facility] [address] [facility] [address] 05/04/2019 12:00:00 AM EST eCW1 ([facility]) [facility] [address] [facility] [address] 05/04/2019 12:00:00 AM EST eCW1 ([facility]) [facility] [place] [address] [facility] [address] 04/28/2019 12:00:00 AM EST eCW1 ([facility]) [facility] [address] [place] [address] [address] 04/21/2019 12:00:00 AM EST [facility] [address] [place] [address] 04/21/2019 12:00:00 AM EST eCW1 ([facility] [place]) [facility] [address] [place] [address] [address] 04/07/2019 12:00:00 AM EST [facility]CW1 [facility] [address] [place] [address] 04/07/2019 12:00:00 AM EST [facility]CW1 ([facility] Outpatient 04/06/2019 02:37:00 PM EST [facility] [address] [place] [address] [address] 03/23/2019 12:00:00 AM EST [facility]1 [facility] [address] [facility] [address] 03/19/2019 12:00:00 AM EST [facility] [address] [place] [address] [address] 03/18/2019 12:00:00 AM EST eCW1 ([facility]) [facility] [address] [facility] [address] 03/18/2019 12:00:00 AM EST [facility] [address] [facility] [address] 03/09/2019 12:00:00 AM EST eCW1 ([facility]) [address] [address] 02/24/2019 12:00:00 AM EST eCW1 ([facility]) [facility] [place] [address] [facility] [address] 02/18/2019 12:00:00 AM EST eCW1 ([facility]) Immunizations Vaccine Date Status Description Data Source(s) influenza, recombinant, quadrIvalent,injectable, prese rvative free 05/06/2019 08:47:00 AM EST completed eCW1 ([facility] influenza, recombinant, quadrIvalent,injectable, prese rvative free 05/06/2019 08:47:00 AM EST completed eCW1 ([facility]) Medications Medication Brand Name Start Date Product Form Dose Route Admi nistrative Instructions Pharmacy Instructions Status Indications Reaction Description Data Source(s) 5 mg 03/28/2020 12:00:00 AM EST tablet 60 TAKE ONE TABLET BY MOUTH TWICE A DAY FOR TREATMENT/ PREVENTION OF BLOOD CLOTS TAKE ONE TABLET BY MOUTH TWICE A DAY FOR TREATMENT/ PREVENTION OF BLOOD CLOTS SOLD: 03/29/2020 [facility] 110 mcg/actuation 03/28/2020 12:00:00 AM EST [...] active Take 1 tablet by mouth daily [facility] TPN adult 01/09/2020 07:00:00 PM EDT Intravenous active Intravenous, at 75 mL/hr, Daily at 1900, First dose (after last reorder) on Sat01/09/20 at 1900, For 1 day
Is patient on propofol (= 1 fat kcal/ml)? No
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
Do not crush or chew
[facility] Medication administered onsite Continue current TPN formula 01/09/2020 12:00:00 AM EDT active See AVS for details [facility] sennosides, FPC 8.6 MG Oral Tablet Senna 8.6 MG Oral T ablet Senna 8.6 MG Oral Tablet 01/09/2020 12:00:00 AM EDT 2 {tbl} Oral active Take 2 tablets by mouth nightly [facility] Albuterol Sulfate HFA 108 (90 Base) MCG/ ACT Inhalation Aerosol Solution (PROVENTIL HFA) 1554-1387-41 01/09/2020 12:00:00 AM EDT 2 {puff} Inha lation active Inhale 2 puffs i nto the lungs every 6 (six) hours as needed for Wheezing [facility] apixaban 5 MG Oral Tablet apixaban (ELIQUIS) tablet 5 mg apixaban (ELIQUIS) tablet 5 mg 01/08/2020 09:00:00 PM EDT 5 mg Oral active 5 mg, Oral, 2 Times Daily, First dose on Sat01/08/20 at 2100, For 30 days [facility] Medication administered onsite TPN adult 01/08/2020 07:00:00 PM EDT Intravenous completed Intravenous, at 75 mL/hr, Daily at 1900, First dose (after last reorder) on Sat01/08/20 at 1900, For 1 day
Is patient on propofol (= 1 fat kcal/ml)? No
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
[facility] Medication administered onsite TPN adult 01/07/2020 07:00:00 PM EDT Intravenous completed Intravenous, at 75 mL/hr, Daily at 1900, First dose (after last reorder) on Katie 01/07/20 at 1900, For 1 day
Is patient on propofol (= 1 fat kcal/ml)? No
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
Shake the inhaler well before each spray.
[facility] Medication administered onsite TPN adult 01/06/2020 07:00:00 PM EDT Intravenous completed Intravenous, at 75 mL/hr, Daily at 1900, First dose (after last reorder) on Sat01/06/20 at 1900, For 1 day
Is patient on propofol (= 1 fat kcal/ml)? No
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
[facility] Medication administered onsite Acetaminophen 325 MG [...] mg from all sources in 24 hours.
[facility] Medication administered onsite TPN adult 01/05/2020 07:00:00 PM EDT Intravenous completed Intravenous, at 75 mL/hr, Daily at 1900, First dose (after last reorder) on Sat01/05/20 at 1900, For 1 day
Is patient on propofol (= 1 fat kcal/ml)? No
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
Slower infusion rates (e.g. over 4 hours) are recommended in patients with renal impairment and/or less severe hypophosphatemia. Product contains 8.8 mEq of potassium.
[facility] Medication administered onsite TPN adult 01/04/2020 07:00:00 PM EDT Intravenous completed Intravenous, at 75 mL/hr, Daily at 1900, First dose on Sat01/04/20 at 1900, For 1 day
Is patient on propofol (= 1 fat kcal/ml)? No
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
[facility] Medication administered onsite sodium chloride (preservative free) 0.9 % flush 10 mL 01/03/2020 02:58:41 PM EDT 10 mL Intravenous active [Ord er 1 Start] Name: sodium chloride (preservative free) 0.9 % flush 10 mL Signed Summary: 10 mL, Intravenous, PRN, Line Care, Starting 01/03/20 at 1458, For 30 days
Verify [...] 20 Units, Intravenous, PRN, Line Care, Starting 01/03/20 at 1458, For 30 days
Verify [...] Intravenous, Every 12 hours, First dose on [place] 01/03/20 at 1500, For 30 days
WHEN NOT IN USE - Verify blood return before use. Flush with 10 mL of Sodium Chloride 0.9 % and 2 mL Heparin 10 units/mL.Reference Policy C-34H Central Line Policy.
[Order 3 End] [Order 4 Start] Name: heparin lock flush 10 UNIT/ML injection 20 Units Signed Summary: 20 Units, Intravenous, Every 12 hours, First dose on [place] 01/03/20 at 1500, For 30 days
WHEN NOT IN USE - Verify blood return before use. Flush with 10 mL of Sodium Chloride 0.9 % and 2 mL Heparin 10 units/mL.Reference Policy C-34 Central Line Policy.
[Order 4 End] [facility] Medication administered onsite lidocaine (XYLOCAINE) 1 % injection 5 mL [id number] 01/03/2020 02:58:41 PM EDT 5 mL Subcutaneous active 5 m L, Subcutaneous, Once PRN, for PICC insertion, Starting [place] 01/03/20 at 1458, For 30 days [facility] Medication administered onsite iohexol (OMNIPAQUE) 300 MG/ML contrast injection 100 mL 1775 0401/03/2020 12:45:00 PM EDT 100 mL Given by IV completed 100 mL, Given by IV, 1 TIME IMAGING, [place] 01/03/20 at 1245, For 1 dose [facility] Medication administered onsite iohexol (OMNIPAQUE) 240 MG/ML contrast 20 mL [id number] 09:59:06 AM EDT 20 mL Oral completed 20 mL, Oral, O nce PRN, Contrast, Per Protocol, Starting [place] 01/03/20 at 0959, For [address] Scanner prior. faculty i on call medical assistant to CT.Dilute in 500 mL liquid x1 biofuels production technician to CT scan - per protocol. Use "Contrast dose chart" link for dosing guidelines.
[facility] Medication administered onsite iohexol (OMNIPAQUE) 240 MG/ML contrast 20 mL [id number] 09:59:05 AM EDT 20 mL Oral completed 20 mL, Oral, O nce PRN, Contrast, Per Protocol, Starting [place] 01/03/20 at 0959, For [address] to tell RN administration time of first dose. Dilute in 500 mL liquid x1 Now per protocol. Use "Contrast dose chart" link for dosing guidelines.
[facility] Medication administered onsite Piperacillin 3000 MG [...] of piperacillin-tazobactam is compatible with Lactated Ringers.
[facility] Medication administered onsite potassium chloride (KLOR-CON) packet 40 mEq 8329-7462-80 01/03/2020 09:00:00 AM EDT 40 meq Oral aborted 40 mEq, Oral, 2 Times Daily, First dose on 01/03/20 at 0900, For 30 days
Mix in 4 ounces of water or juice
[facility] Medication administered onsite POLYETHYLENE GLYCOL 3350 [...] due to potential increased risk for aspiration.
[facility] Medication administered onsite sennosides, FPC 8.6 MG Oral Tablet senna tablet 2 tablet sen na tablet 2 tablet 01/03/2020 07:30:00 AM EDT 2 {tbl} Oral active 2 tablet, Oral, Nightly, First dose on 01/03/20 at 0730, For 30 days [facility] Medication administered onsite 0.9% NaCl (MAINTENANCE) infusion [id number] 01/03/2020 07:15:00 AM EDT Intravenous aborted at 75 mL/hr, Intravenous, Continuous, Starting 01/03/20 at 0715, For 30 days [facility] Medication administered onsite dextrose 5 %-0.9 % sodium chloride infusion [id number] 01/02/2020 01:00:00 PM EDT Intravenous aborted at 1 00 mL/hr, Intravenous, Continuous, Starting 01/02/20 at 1300, For 30 days [facility] Medication administered onsite Glucose 0.417 MG/MG Oral Gel glucose (GLUTOSE) 40 % or al gel 15 g glucose (GLUTOSE) 40 % oral gel 15 g 01/02/2020 12:52:24 PM EDT 15 g Oral active 15 g, Oral, PRN, Low blood s ugar, for gluose 55-69 mg/dl and able to take PO, Starting 01/02/20 at 1252, For 30 days [facility] Medication administered onsite Glucagon 1 MG Injection glucagon (human recombinant) ( GLUCAGEN) injection 1 mg glucagon (human recombinant) (GLUCAGEN) injection 1 mg 01/02/2020 12:52:24 PM EDT 1 mg Intramuscular active 1 mg, Intramuscular, PRN, for glucose <55 without IV access, Starting 01/02/20 at 1252, For 30 days [facility] Medication administered onsite dextrose 50 % IV solution 25 mL [id number] 01/02/2020 12:52:23 PM E DT 25 mL Intravenous active 25 mL, Intrav enous, PRN, Other, blood glucose <55, Starting 01/02/20 at 1252, For 30 days
Not for midline administration.
[facility] Medication administered onsite 1 ML Enoxaparin sodium 100 MG/ML Prefill ed Syringe enoxaparin sodium (LOVENOX) injection 100 mg enoxaparin sodium (LOVENOX) injection 100 mg 0 09:00:00 AM EDT 100 mg Subcutaneous aborted 100 mg, Subcutaneous, Daily Standard, First dose (after last modification) on Katie 12/31/19 at 0900, For 27 doses [facility] Medication administered onsite dextrose 5 % and 0.45 % NaCl with KCl 20 mEq infusion [id number] 12/31/2019 07:30:00 AM EDT Intravenous completed at 100 mL/hr, Intravenous, Continuous, Starting Katie 12/31/19 at 0730, For 24 hours [facility] Medication administered onsite albuterol (PROVENTIL HFA) inhaler 2 puff [id number] 12/30/2019 02:00:00 PM EDT 2 {puff} Inhalation aborted 2 pu ff, Inhalation, Every 6 hours, First dose (after last reorder) on Sat12/30/19 at 1400, For 4 days
Shake the inhaler well before each spray.
[facility] Medication administered onsite dextrose 5 % and 0.45 % NaCl with KCl 20 mEq infusion [id number] 12/30/2019 11:15:00 AM EDT Intravenous aborted at 100 mL/hr, Intravenous, Continuous, Starting Sat12/30/19 at 1115, For 24 hours [facility] Medication administered onsite Piperacillin 3000 MG [...] of piperacillin-tazobactam is compatible with Lactated Ringers.
[facility] Medication administered onsite gadobutrol (GADAVIST) contrast injection 7 mL [id number] 04:30:00 AM EDT 0.1 mL/kg Intravenous completed 7 mL (ro unded from 7.3 mL = 0.1 mL/kg 73 kg), Intravenous, 1 TIME IMAGING, Sat12/30/19 at 0430, For 1 dose
Do not mix or administer in the same IV line with other medications.
[facility] Medication administered onsite lidocaine (XYLOCAINE) 2 % injection [id number] 12/29/2019 05:16:55 PM EDT completed Code/Trauma Medicati on, Starting Sat12/29/19 at 1716 [facility] Medication administered onsite iohexol (OMNIPAQUE) 300 MG/ML contrast injection 100 mL 1776 [id number] 12/29/2019 05:15:00 PM EDT 100 mL Given by IV completed 100 mL, Given by IV, 1 TIME IMAGING, Sat12/29/19 at 1715, For 1 dose [facility] Medication administered onsite ondansetron (ZOFRAN) injection [id number] 12/29/2019 04:58:02 PM EDT completed Code/Trauma Medication, Ihsan walters Sat12/29/19 at 1658 [facility] Medication administered onsite Rosuvastatin calcium 10 MG Oral Tablet rosuvastatin (C RESTOR) tablet 10 mg rosuvastatin (CRESTOR) tablet 10 mg 12/29/2019 09:00:00 AM EDT 10 mg Oral active 10 mg, Oral, Daily Standard, First dose (after last modification) on Sat12/29/19 at 0900, For 27 doses [facility] Medication administered onsite lidocaine (LIDODERM) 5 % patch 1 patch [id number] 0 09:00:00 AM EDT 1 {patch} Transdermal active 1 patch, T ransdermal, Daily Standard, First dose on Sat12/29/19 at 0900, For 30 days
Apply to right buttock area12 hours on - 12 hours off
[facility] Medication administered onsite iohexol (OMNIPAQUE) 300 MG/ML contrast injection 100 mL 1775 0412/29/2019 05:00:00 AM EDT 100 mL Given by IV completed 100 mL, Given by IV, 1 TIME IMAGING, Sat12/29/19 at 0500, For 1 dose [facility] Medication administered onsite Piperacillin 3000 MG / tazobactam 375 MG Injection Piperacillin-Tazobactam in Dex 3-0.375 GM/50ML Intravenous Solution (ZOSYN) Piperacillin-Tazobactam in Dex 3-0.375 GM/50ML Intravenous Solution (ZOSYN) 12/29/2019 12:00:00 AM EDT 3.375 g Intravenous active Inject 50 mLs into t he vein every 8 (eight) hours [facility] ondansetron (ZOFRAN) injection 4 mg [id number] 12/28/2019 11:30:0 0 PM EDT 4 mg Intravenous completed 4 mg, In travenous, Once, 12/28/19 at 2330, For 1 dose [facility] Medication administered onsite dextrose 5 % and 0.45 % NaCl with KCl 20 mEq infusion [id number] 12/28/2019 08:45:00 PM EDT Intravenous aborted at 100 mL/hr, Intravenous, Continuous, Starting Sat12/28/19 at 2045, For 2 days [facility] Medication administered onsite Piperacillin 3000 MG [...] of piperacillin-tazobactam is compatible with Lactated Ringers.
[facility] Medication administered onsite 0.4 ML Enoxaparin sodium 100 MG/ML Prefi lled Syringe enoxaparin sodium (LOVENOX) injection 40 mg enoxaparin sodium (LOVENOX) injection 40 mg 12/28/2019 09:00:00 AM EDT 40 mg Subcutaneous aborted 40 mg, Subcutaneous, Daily Standard, First dose on Sat12/28/19 at 0900, For 30 days [facility] Medication administered onsite potassium chloride (K-DUR) dissolvable tablet 40 mEq [id number] 12/28/2019 09:00:00 AM EDT 40 meq Oral completed 40 mEq, Oral, Daily Standard, First dose on Sat12/28/19 at 0900, For 3 days
May be dissolved in water for patients with a G-Tube or unable to swallow. If concern for clogging G-Tube, may contact Pharmacy to switch formulation to a powder packet.
[facility] Medication administered onsite iohexol (OMNIPAQUE) 240 MG/ML contrast 20 mL [id number] 05:00:00 AM EDT 20 mL Oral completed 20 mL, Oral, O nce PRN, Contrast, Per Protocol, Starting Sat12/28/19 at 0500, For [address] to tell RN administration time of first dose. Dilute in 500 mL liquid x1 Now per protocol. Use "Contrast dose chart" link for dosing guidelines.
[facility] Medication administered onsite iohexol (OMNIPAQUE) 240 MG/ML contrast 20 mL [id number] 05:00:00 AM EDT 20 mL Oral completed 20 mL, Oral, O nce PRN, Contrast, Per Protocol, Starting 12/28/19 at 0500, For [address] Scanner prior. faculty i on call medical assistant to CT.Dilute in 500 mL liquid x1 biofuels production technician to CT scan - per protocol. Use "Contrast dose chart" link for dosing guidelines.
[facility] Medication administered onsite ondansetron (ZOFRAN) injection 4 mg [id number] 12/27/2019 09:45:0 0 PM EDT 4 mg Intravenous completed 4 mg, In travenous, Once, 12/27/19 at 2145, For 1 dose [facility] Medication administered onsite Potassium Chloride 0.1 MEQ/ML Injectable Solution potassium chloride 10 mEq in 100 mL IVPB (premix) potassium chloride 10 mEq in 100 mL IVPB (premix) 12/27/2019 11:00:00 AM EDT 10 meq Intravenous completed 10 mEq, Intravenous, Administer over 60 Minutes, Every 1 hour, First dose on 12/27/19 at 1100, For 4 doses [facility] Medication administered onsite Bisacodyl 10 MG Rectal Suppository bisacodyl (DULCOLAX ) suppository 10 mg bisacodyl (DULCOLAX) suppository 10 mg 12/27/2019 10:44:12 AM EDT 10 mg Rectal active 10 mg, Rectal, Daily PRN, Constipation, Starting 12/27/19 at 1044, For 30 days [facility] Medication administered onsite dextrose 5 % and 0.45 % NaCl with KCl 20 mEq infusion [id number] 12/26/2019 06:15:00 PM EDT Intravenous completed at 100 mL/hr, Intravenous, Continuous, Starting 12/26/19 at 1815, For 2 days [facility] Medication administered onsite Glucose 0.417 MG/MG Oral Gel glucose (GLUTOSE) 40 % or al gel 15 g glucose (GLUTOSE) 40 % oral gel 15 g 12/26/2019 05:45:00 PM EDT 15 g Oral completed 15 g, Oral, Once, 12/26/19 a t 1745, For 1 dose [facility] Medication administered onsite Acetaminophen 10 MG/ML Injectable Soluti on acetaminophen (OFIRMEV) infusion 1,000 mg acetaminophen (OFIRMEV) infusion 1,000 mg 12/26/2019 04:15:00 PM EDT 1000 mg Intravenous completed 1,000 mg , Intravenous, Administer over 15 Minutes, Once, 12/26/19 at 1615, For 1 dose
Maximum dose 3 gm daily from all sources
[facility] Medication administered onsite sodium chloride 0.9 % bolus 2,190 mL [id number] 12/26/2019 04:00: 00 PM EDT 30 mL/kg Intravenous completed 2,190 mL (30 mL/kg 73 kg), Intravenous, Once, 12/26/19 at 1600, For 1 dose [facility] Medication administered onsite Potassium Chloride 0.1 MEQ/ML Injectable Solution potassium chloride 10 mEq in 100 mL IVPB (premix) potassium chloride 10 mEq in 100 mL IVPB (premix) 12/26/2019 04:00:00 PM EDT 10 meq Intravenous completed 10 mEq, Intravenous, Administer over 60 Minutes, Every 1 hour, First dose on 12/26/19 at 1600, For 4 doses [facility] Medication administered onsite Acetaminophen 325 MG [...] mg from all sources in 24 hours.
[facility] Medication administered onsite 2 ML Midazolam 1 MG/ML Injection midazolam (PF) (VERSE D) injection midazolam (PF) (VERSED) injection 12/26/2019 02:24:46 PM EDT completed Code/Trauma Medication, Starting 12/26/19 at 1424 [facility] Medication administered onsite fentaNYL (SUBLIMAZE) (PF) injection [id number] 12/26/2019 02:24:40 PM EDT completed Code/Trauma Medicati on, Starting 12/26/19 at 1424 [facility] Medication administered onsite factor IX, human [...] a rate not to exceed 8.4 mL/minute.
[facility] Medication administered onsite Rosuvastatin calcium 20 MG Oral Tablet rosuvastatin (C RESTOR) tablet 40 mg rosuvastatin (CRESTOR) tablet 40 mg 12/26/2019 09:00:00 AM EDT 40 mg Oral aborted 40 mg, Oral, Daily Standard, First dose on 12/26/19 at 0900, For 30 days [facility] Medication administered onsite albuterol (PROVENTIL HFA) inhaler 2 puff [id number] 12/26/2019 08:15:00 AM EDT 2 {puff} Inhalation active 2 pu ff, Inhalation, Every 6 hours, First dose on 12/26/19 at 0815, For 4 days
Shake the inhaler well before each spray.
[facility] Medication administered onsite 120 ACTUAT Fluticasone propionate 0.11 M G/ACTUAT Metered Dose Inhaler fluticasone (FLOVENT HFA) 110 MCG/ACT inhaler 1 puff fluticasone (FLOVENT HFA) 110 MCG/ACT inhaler 1 puff 12/26/2019 08:00:00 AM EDT 1 {puff} Inhala tion active 1 puff, Inhalation, 2 Times Daily, First dose on 12/26/19 at 0800, For 55 doses [facility] Medication administered onsite NaCl infusion 0.9 % [id number] 12/26/2019 03:15:00 AM EDT Intravenous aborted at 75 mL/hr, Intrave nous, Continuous, Starting 12/26/19 at 0315, For 1 day [facility] Medication administered onsite Piperacillin 3000 MG [...] piperacillin- tazobactam is compatible with Lactated Ringers.
[facility] Medication administered onsite NaCl infusion 0.9 % [id number] 12/26/2019 01:45:00 AM EDT Intravenous aborted at 75 mL/hr, Intrave nous, Continuous, Starting 12/26/19 at 0145, For 10 hours [facility] Medication administered onsite influenza vac split quad (FLUARIX) injection 6 months and ol julio cesar 0.5 mL [id number] 12/26/2019 01:41:29 AM EDT 0.5 mL Intramuscular active 0.5 mL, Intramuscular, Give Now, Starting 12/26/19 at 0141, For 1 dose [facility] Medication administered onsite 5 mg 12/17/2019 12:00:00 AM EDT tablet 60 TAKE ONE TABLET BY MOUTH TWICE A DAY TAKE ONE TABLET BY MOUTH TWICE A DAY SOLD: 12/18/2019 [facility] olopatadine 2 MG/ML Ophthalmic Solution Olopatadine HC l 0.2 % Olopatadine HCl 0.2 % 07/03/2019 12:00:00 AM EDT active 1 drop in each eye eCW1 ([facility]) olopatadine 2 MG/ML Ophthalmic Solution Olopatadine HC l 0.2 % Olopatadine HCl 0.2 % 07/03/2019 12:00:00 AM EDT active Olopatadine HCl 0.2 % eCW1 ([facility]) olopatadine 2 MG/ML Ophthalmic Solution Olopatadine HC l 0.2 % Olopatadine HCl 0.2 % 07/03/2019 12:00:00 AM EDT active Olopatadine HCl 0.2 % eCW1 ([facility]) olopatadine 1 MG/ML Ophthalmic Solution Olopatadine HC l 0.1 % Olopatadine HCl 0.1 % 07/01/2019 12:00:00 AM EDT active 1 drop into affected eye eCW1 ([facility]) 10 mg 06/17/2019 12:00:00 AM EDT tablet 90 TAKE ONE TABLET BY MOUTH EVERY DAY TAKE ONE TABLET BY MOUTH EVERY DAY SOLD: 06/19/2019 [facility] Rosuvastatin calcium 10 MG Oral Tablet ROSUVASTATIN CALCIUM 06/17/2019 12:00:00 AM EDT tablet 90 TAKE ONE TABLET BY MOUTH SOFIYA TAKE ONE TABLET BY MOUTH EVERY DAY [...] acti ve Rosuvastatin Calcium 10 MG eCW1 ([facility]) Mupirocin 0.02 MG/MG Topical Ointment Mupirocin 2 % Mupiroci n 2 % 04/27/2019 12:00:00 AM EST active as direc diony eCW1 ([facility]) 120 ACTUAT Fluticasone propionate 0.11 M G/ACTUAT Metered Dose Inhaler [Flovent] Flovent HFA 110 MCG/ACT Flovent HFA 110 MCG/ACT 04/27/2019 12:00:00 AM EST active 2 puffs eCW1 [facility] Nystatin 100 UNT/MG Topical Powder Nystatin 992113 UNI T/GM Nystatin 192474 UNIT/GM 04/27/2019 12:00:00 AM EST active Nystatin 779640 UNIT/GM eCW1 ([facility]) Amlodipine 10 MG Oral Tablet AmLODIPine Besylate 10 MG AmLODIPine Besylate 10 MG 04/27/2019 12:00:00 AM EST active 1 tablet eCW1 ([facility]) Nystatin 100 UNT/MG Topical Powder Nystatin 990344 UNI T/GM Nystatin 736019 UNIT/GM 04/27/2019 12:00:00 AM EST active as directed eCW1 ([facility]) Rosuvastatin calcium 10 MG Oral Tablet Rosuvastatin Ca lcium 10 MG Rosuvastatin Calcium 10 MG 04/27/2019 12:00:00 AM EST active 40 mg eCW1 ([facility]) Rosuvastatin calcium 10 MG Oral Tablet Rosuvastatin Ca lcium 10 MG Rosuvastatin Calcium 10 MG 04/27/2019 12:00:00 AM EST acti ve Rosuvastatin Calcium 10 MG eCW1 ([facility]) 5 mg 04/27/2019 12:00:00 AM EST tablet 30 TAKE ONE TABLET BY MOUTH TWICE A DAY TAKE ONE TABLET BY MOUTH TWICE A DAY SOLD: 04/27/2019 [facility] Amlodipine 10 MG Oral Tablet AmLODIPine Besylate 10 MG AmLODIPine Besylate 10 MG 04/27/2019 12:00:00 AM EST active 1 tablet eCW1 ([facility]) Apixaban 5 MG UNK 04/27/2019 12:00:00 AM EST acti ve 10 mg eCW1 ([facility]) Apixaban 5 MG UNK 04/27/2019 12:00:00 AM EST suspended Apixaban 5 MG eCW1 ([facility]) 120 ACTUAT Fluticasone propionate 0.11 M G/ACTUAT Metered Dose Inhaler [Flovent] Flovent HFA 110 MCG/ACT Flovent HFA 110 MCG/ACT 04/27/2019 12:00:00 AM EST active 2 puffs eCW1 ([facility]) Rosuvastatin calcium 10 MG Oral Tablet Rosuvastatin Ca lcium 10 MG Rosuvastatin Calcium 10 MG 04/27/2019 12:00:00 AM EST active 40 mg eCW1 ([facility]) 875-125 mg 04/27/2019 12:00:00 AM EST tablet 20 TAKE ONE TABLET BY MOUTH TWICE A DAY TAKE ONE TABLET BY MOUTH TWICE A DAY SOLD: 04/27/2019 [facility] Apixaban 5 MG UNK 04/27/2019 12:00:00 AM EST acti ve 1 tab eCW1 ([facility]) 100,000 unit/gram 04/27/2019 12:00:00 AM EST powder [...] 12:00:00 AM EST active 2 puffs eCW1 ([facility]) Desitin 40 % Desitin 40 % 04/27/2019 12:00:00 AM EST active as directed eCW1 ([facility]) Rosuvastatin calcium 10 MG Oral Tablet Rosuvastatin Ca lcium 10 MG Rosuvastatin Calcium 10 MG 04/27/2019 12:00:00 AM EST active 40 mg eCW1 ([facility]) Mupirocin 0.02 MG/MG Topical Ointment Mupirocin 2 % Mupiroci n 2 % 04/27/2019 12:00:00 AM EST active as direc diony eCW1 ([facility]) Desitin 40 % Desitin 40 % 04/27/2019 12:00:00 AM EST active as directed eCW1 ([facility]) Rosuvastatin calcium 10 MG Oral Tablet Rosuvastatin Ca lcium 10 MG Rosuvastatin Calcium 10 MG 04/27/2019 12:00:00 AM EST acti ve Rosuvastatin Calcium 10 MG eCW1 ([facility]) Amlodipine 10 MG Oral Tablet AmLODIPine Besylate 10 MG AmLODIPine Besylate 10 MG 04/27/2019 12:00:00 AM EST active 1 tablet eCW1 ([facility]) Rosuvastatin calcium 10 MG Oral Tablet Rosuvastatin Ca lcium 10 MG Rosuvastatin Calcium 10 MG 04/27/2019 12:00:00 AM EST active 40 mg eCW1 ([facility]) Apixaban 5 MG UNK 04/27/2019 12:00:00 AM EST susp ended 1 tab eCW1 ([facility]) Amoxicillin 875 MG / Clavulanate 125 MG Oral Tablet Amoxicillin-Pot Clavulanate 875-125 MG Amoxicillin-Pot Clavulanate 875-125 MG 04/27/2019 12:00:00 AM ES T active 1 tablet eCW1 ([facility]) Amlodipine 10 MG Oral Tablet AmLODIPine Besylate 10 MG AmLODIPine Besylate 10 MG 04/27/2019 12:00:00 AM EST 1.0 {tablet} activ e AmLODIPine Besylate 10 MG eCW1 ([facility]) Apixaban 5 MG UNK 04/27/2019 12:00:00 AM EST acti ve 10 mg eCW1 ([facility]) Apixaban 5 MG UNK 04/27/2019 12:00:00 AM EST susp ended 1 tab eCW1 ([facility]) Apixaban 5 MG UNK 04/27/2019 12:00:00 AM EST acti ve 1 tab eCW1 ([facility]) Nystatin 100 UNT/MG Topical Powder Nystatin 716964 UNI T/GM Nystatin 013724 UNIT/GM 04/27/2019 12:00:00 AM EST active Nystatin 789089 UNIT/GM eCW1 ([facility]) 120 ACTUAT Fluticasone propionate 0.11 M G/ACTUAT Metered Dose Inhaler [Flovent] Flovent HFA 110 MCG/ACT Flovent HFA 110 MCG/ACT 04/27/2019 12:00:00 AM EST active 2 puffs eCW1 ([facility]) 2 % 04/27/2019 12:00:00 AM EST ointment 22 APPL Y TOPICALLY DAILY APPLY TOPICALLY DAILY SOLD: 04/27/2019 [facility] 110 mcg/actuation 04/27/2019 12:00:00 AM EST HFA aerosol inh aler 12 INHALE TWO PUFFS BY MOUTH TWICE A DAY INHALE TWO PUFFS BY MOUTH TWICE A DAY SOLD: 04/27/2019 [facility] Mupirocin 0.02 MG/MG Topical Ointment Mupirocin 2 % Mupiroci n 2 % 04/27/2019 12:00:00 AM EST suspended as di rected eCW1 ([facility]) Amlodipine 10 MG Oral Tablet AmLODIPine Besylate 10 MG AmLODIPine Besylate 10 MG 04/27/2019 12:00:00 AM EST 1.0 {tablet} activ e AmLODIPine Besylate 10 MG eCW1 ([facility]) Apixaban 5 MG UNK 04/27/2019 12:00:00 AM EST acti ve Apixaban 5 MG eCW1 ([facility]) 120 ACTUAT Fluticasone propionate 0.11 M G/ACTUAT Metered Dose Inhaler [Flovent] Flovent HFA 110 MCG/ACT Flovent HFA 110 MCG/ACT 04/27/2019 12:00:00 AM EST 2.0 {puffs} active Flovent HFA 110 MCG/ACT eCW1 ([facility]) Nystatin 100 UNT/MG Topical Powder Nystatin 399642 UNI T/GM Nystatin 130859 UNIT/GM 04/27/2019 12:00:00 AM EST active as directed eCW1 ([facility]) Amlodipine 10 MG Oral Tablet AmLODIPine Besylate 10 MG AmLODIPine Besylate 10 MG 04/27/2019 12:00:00 AM EST 1.0 {tablet} activ e AmLODIPine Besylate 10 MG eCW1 ([facility]) Apixaban 5 MG UNK 04/27/2019 12:00:00 AM EST suspended Apixaban 5 MG eCW1 ([facility]) Desitin 40 % Desitin 40 % 04/27/2019 12:00:00 AM EST active as directed eCW1 ([facility]) Mupirocin 0.02 MG/MG Topical Ointment Mupirocin 2 % Mupiroci n 2 % 04/27/2019 12:00:00 AM EST active as direc diony eCW1 ([facility]) Amlodipine 10 MG Oral Tablet amLODIPine Besylate 10 MG Oral Tablet (NORVASC) amLODIPine Besylate 10 MG Oral Tablet (NORVASC) 04/27/2019 12:00:00 AM EST active AmLODIPine Besylate 10 MG [facility] 40 mg 04/27/2019 12:00:00 AM EST tablet 30 TAKE ONE TABLET BY MOUTH EVERY DAY TAKE ONE TABLET BY MOUTH EVERY DAY SOLD: 04/27/2019 [facility] Amlodipine 10 MG Oral Tablet AmLODIPine Besylate 10 MG AmLODIPine Besylate 10 MG 04/27/2019 12:00:00 AM EST active 1 tablet eCW1 ([facility]) Desitin 40 % Desitin 40 % 04/27/2019 12:00:00 AM EST active as directed eCW1 ([facility]) Rosuvastatin calcium 10 MG Oral Tablet Rosuvastatin Ca lcium 10 MG Rosuvastatin Calcium 10 MG 04/27/2019 12:00:00 AM EST active 40 mg eCW1 ([facility]) Apixaban 5 MG UNK 04/27/2019 12:00:00 AM EST acti ve 1 tab eCW1 ([facility]) Nystatin 100 UNT/MG Topical Powder Nystatin 085363 UNI T/GM Nystatin 980882 UNIT/GM 04/27/2019 12:00:00 AM EST active as directed eCW1 ([facility]) Amoxicillin 875 MG / Clavulanate 125 MG Oral Tablet Amoxicillin-Pot Clavulanate 875-125 MG Amoxicillin-Pot Clavulanate 875-125 MG 04/27/2019 12:00:00 AM ES T active 1 tablet eCW1 ([facility]) Apixaban 5 MG UNK 04/27/2019 12:00:00 AM EST acti ve 1 tab eCW1 ([facility]) Apixaban 5 MG UNK 04/27/2019 12:00:00 AM EST susp ended 1 tab eCW1 ([facility]) Apixaban 5 MG UNK 04/27/2019 12:00:00 AM EST acti ve 1 tab eCW1 ([facility]) Apixaban 5 MG UNK 04/27/2019 12:00:00 AM EST acti ve Apixaban 5 MG eCW1 ([facility]) Nystatin 100 UNT/MG Topical Powder Nystatin 142782 UNI T/GM Nystatin 339823 UNIT/GM 04/27/2019 12:00:00 AM EST active as directed eCW1 ([facility]) Mupirocin 0.02 MG/MG Topical Ointment Mupirocin 2 % Mupiroci n 2 % 04/27/2019 12:00:00 AM EST active as direc diony eCW1 ([facility]) 120 ACTUAT Fluticasone propionate 0.11 M G/ACTUAT Metered Dose Inhaler [Flovent] Flovent HFA 110 MCG/ACT Flovent HFA 110 MCG/ACT 04/27/2019 12:00:00 AM EST active 2 puffs eCW1 ([facility]) Apixaban 5 MG UNK 04/27/2019 12:00:00 AM EST acti ve 1 tab eCW1 ([facility]) 120 ACTUAT Fluticasone propionate 0.11 M G/ACTUAT Metered Dose Inhaler [Flovent] Flovent HFA 110 MCG/ACT Flovent HFA 110 MCG/ACT 04/27/2019 12:00:00 AM EST active 2 puffs eCW1 ([facility]) Desitin 40 % Desitin 40 % 04/27/2019 12:00:00 AM EST active Desitin 40 % eCW1 ([facility]) Amlodipine 10 MG Oral Tablet AmLODIPine Besylate 10 MG AmLODIPine Besylate 10 MG 04/27/2019 12:00:00 AM EST active 1 tablet eCW1 ([facility]) Rosuvastatin calcium 10 MG Oral Tablet Rosuvastatin Ca lcium 10 MG Rosuvastatin Calcium 10 MG 04/27/2019 12:00:00 AM EST active 40 mg eCW1 ([facility]) Amlodipine 10 MG Oral Tablet AmLODIPine Besylate 10 MG AmLODIPine Besylate 10 MG 04/27/2019 12:00:00 AM EST active 1 tablet eCW1 ([facility]) Desitin 40 % Desitin 40 % 04/27/2019 12:00:00 AM EST active as directed eCW1 ([facility]) Desitin 40 % Desitin 40 % 04/27/2019 12:00:00 AM EST active Desitin 40 % eCW1 ([facility]) Nystatin 100 UNT/MG Topical Powder Nystatin 652030 UNI T/GM Nystatin 167736 UNIT/GM 04/27/2019 12:00:00 AM EST active as directed eCW1 ([facility]) Amlodipine 10 MG Oral Tablet AmLODIPine Besylate 10 MG AmLODIPine Besylate 10 MG 04/27/2019 12:00:00 AM EST active 1 tablet eCW1 ([facility]) Nystatin 100 UNT/MG Topical Powder Nystatin 448620 UNI T/GM Nystatin 141324 UNIT/GM 04/27/2019 12:00:00 AM EST active as directed eCW1 ([facility]) Rosuvastatin calcium 10 MG Oral Tablet Rosuvastatin Ca lcium 10 MG Rosuvastatin Calcium 10 MG 04/27/2019 12:00:00 AM EST active 40 mg eCW1 ([facility]) Desitin 40 % Desitin 40 % 04/27/2019 12:00:00 AM EST active as directed eCW1 ([facility]) 120 ACTUAT Fluticasone propionate 0.11 M G/ACTUAT Metered Dose Inhaler [Flovent] Flovent HFA 110 MCG/ACT Flovent HFA 110 MCG/ACT 04/27/2019 12:00:00 AM EST 2.0 {puffs} active Flovent HFA 110 MCG/ACT eCW1 ([facility]) 25 mg 03/19/2019 12:00:00 AM EST tablet [...] 12:00:00 AM EST active as directed eCW1 ([facility]) Depend Underwear Large/XL - Depend Underwear Large/XL - 10/2019 12:00:00 AM EST active Depend Underwear Large/XL - eCW1 ([facility]) Depend Underwear Large/XL - Depend Underwear Large/XL - 10/2019 12:00:00 AM EST active as directed eCW1 ([facility]) Doxycycline Monohydrate 100 MG Oral Capsule Doxycycline [place] hydrate 100 MG 03/18/2019 12:00:00 AM EST active 1 capsule eCW1 ([facility]) Depend Underwear Large/XL - UNK 03/18/2019 12:00:00 AM EST active as directed eCW1 ([facility]) Depend Underwear Large/XL - Depend Underwear Large/XL - 10/2019 12:00:00 AM EST active as directed eCW1 ([facility]) Depend Underwear Large/XL - Depend Underwear Large/XL - 10/2019 12:00:00 AM EST active as directed eCW1 ([facility]) Depend Underwear Large/XL - Depend Underwear Large/XL - 10/2019 12:00:00 AM EST active as directed eCW1 ([facility]) Depend Underwear Large/XL - Depend Underwear Large/XL - 10/2019 12:00:00 AM EST active as directed eCW1 ([facility]) Depend Underwear Large/XL - Depend Underwear Large/XL - 10/2019 12:00:00 AM EST active Depend Underwear Large/XL - eCW1 ([facility]) Doxycycline Monohydrate 100 MG UNK 03/18/2019 12:00:00 AM EST active 1 capsule eCW1 [facility] Depend Underwear Large/XL - Depend Underwear Large/XL - 10/2019 12:00:00 AM EST active as directed eCW1 ([facility]) 100 mg 03/18/2019 12:00:00 AM EST capsule 14 TAKE ONE CAPSULE BY MOUTH TWICE A DAY TAKE ONE CAPSULE BY MOUTH TWICE A DAY SOLD: 03/18/2019 [facility] 2 % 02/17/2019 12:00:00 AM EST [...] aborted Take 10 mg by mouth daily [facility] Insurance Providers Payer name Policy type / Coverage type Policy ID Covered libertarian ID Covered libertarian's relationship to [place] Policy [place] Plan Information RUFINO [id number] SP [id number] [employer] [id number] SP [id number] WELLCARE -O/P [id number] 18 [id number] MEDICARE [id number] SP [id number] MEDICAID [id number] Self [id number] [employer]LL[employer] MEDICARE HMO G [id number] Self [id number] MEDICAID M [id number] WE[employer]CARE O [id number] S [id number] MEDICAID [id number] WELLCARE [id number] SP [id number] MEDICARE [id number] SP [id number] WELLCARE [id number] ANSI-Medicare Part B [id number] ANSI-Medicare Part B [id number] ANSI-Medicaid [id number] ANSI-Health Maintenance Organization ( O) [id number] ANSI-Medicaid [id number] ANSI-Medicare Part B [id number] ANSI-Medicare Part B [id number] ANSI-Health Maintenance Organization ( O) [id number] ANSI-Medicare Part B [id number] ANSI-Medicare Part B [id number] ANSI-Health Maintenance Organization ( O) [id number] ANSI-Medicaid [id number] ANSI-Medicare Part B [id number] ANSI-Medicaid [id number] ANSI-Medicare Part B [id number] ANSI-Medicaid [id number] ANSI-Medicare Part B [id number] ANSI-Medicare Part B [id number] ANSI-Medicaid [id number] ANSI-Medicare Part B [id number] ANSI-Medicare Part B [id number] TODAYS OPTIONS [id number] SP [id number] TODAYS OPTIONS SP [id number] ANSI-Medicaid [id number] ANSI-Medicare Part B [id number] ANSI-Medicare Part B [id number] ANSI-Medicare Part B [id number] ANSI-Medicare Part B [id number] ANSI-Medicaid [id number] TODAYS OPTIONS [id number] SP [id number] MEDICAID [id number] SP [id number] ANSI-Medicaid [id number] ANS-Medicare Part B [id number] ANS-Medicare Part B [id number] ANS-Medicaid [id number] ANS-Medicare Part B [id number] [facility]-Medicare Part B [id number] Medicaid [place] Medig[place] Part B [id number] Self [id number] Today's Options Medicare Commercial [id number] Self [id number] MEDICAID [id number] SP [id number] TODAYS OPTIONS [id number] SP [id number] [place] [id number] Self [id number] Today's Options Medicare Commercial [id number] Self [id number] MEDICARE [id number] SP [id number] D TODAYS OPTIONS [id number] SP [id number] MEDICAID [id number] SP [id number] TOD[place]YS OPTIONS [id number] SP [id number] MEDICARE [id number] SP [id number] [facility] [id number] SP [id number] [facility] [id number] SP [id number] [facility] [id number] SP [id number] Problems, Conditions, and Diagnoses Code Display Name Description Problem Type Effective Dates Data Source(s) F17.211 [id number] Cigarette nicotine dependence in [facility] n Problem 05/06/2019 12:00:00 AM EST eCW1 ([facility]) E78.2 [id number] Mixed hyperlipidemia Problem 05/06/2019 12:0 0:00 AM EST eCW1 ([facility]) J44.9 42726518 Chronic obstructive pulmonary di sease, unspecified COPD type Problem 05/06/2019 12:00:00 AM EST eCW1 ([facility]) E27.8 [id number] Adrenal hypertrophy Problem 05/06/2019 12:00 :00 AM EST eCW1 ([facility]) K76.89 43154323 Liver cyst Problem 05/06/2019 12:00:00 AM ES T eCW1 ([facility]) F17.211 [id number] Cigarette nicotine dependence in [facility] n Problem 05/06/2019 12:00:00 AM EST eCW1 ([facility]) E78.2 422500977 Mixed hyperlipidemia Problem 05/06/2019 12:0 0:00 AM EST eCW1 ([facility]) J44.9 42943374 Chronic obstructive pulmonary di sease, unspecified COPD type Problem 05/06/2019 12:00:00 AM EST eCW1 ([facility]) E27.8 511351629 Adrenal hypertrophy Problem 05/06/2019 12:00 :00 AM EST eCW1 ([facility]) K76.89 54478281 Liver cyst Problem 05/06/2019 12:00:00 AM ES T eCW1 ([facility]) E03.9 82742485 Subclinical hypothyroidism Problem 0 12:00:00 AM EST eCW1 ([facility]) 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 Problem 03/18/2019 12:00:00 AM EST eCW1 ([facility]) 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 Problem 03/18/2019 12:00:00 AM EST eCW1 ([facility]) Z1159 Encounter for screening for other viral diseases Encounter for screening for other viral diseases Diagnosis 03/14/2020 04:16:00 PM [facility] K5792 Diverticulitis of intestine, part unspecified, without perforation or abscess without bleeding Diverticulitis of intestine, part unspec ified, without perforation or abscess without bleeding Diagnosis 03/03/2020 06:57:00 AM [facility] R29.90 Unspecified symptoms and signs involving the nervous system Unspecified symptoms and signs involving the nervous system Diagnosis 2019 01:25:36 PM [facility] R47.9 Unspecified speech disturbances Unspecified speech dis turbances Diagnosis 03/02/2020 01:25:36 PM [facility] R53.1 Weakness Weakness Diagnosis 03/02/2020 01:25:36 PM [facility] G14893 Pressure ulcer of sacral region, unspeci fied stage Pressure ulcer of sacral region, unspecified stage Diagnosis 02/02/2020 07:45:00 AM [facility] I10 Essential (primary) hypertension Essential (primary) h ypertension Diagnosis 02/02/2020 07:45:00 AM [facility] K5732 Diverticulitis of large inte jose without perforation or abscess without bleeding Diverticulitis of large intestine withou t perforation or abscess without bleeding Diagnosis 02/02/2020 07:45:00 AM [facility] 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 Non- pressure chronic ulcer of buttock with unspecified severity Diagnosis 01/06/2020 10:39:47 AM [facility] I82.4Z9 Acute embolism and thrombosi s of unspecified deep veins of unspecified distal lower extremity Acute embolism and thrombosis of unspeci fied deep veins of unspecified distal lower extremity Diagnosis 01/06/2020 09:22:41 AM [facility] I10 Essential (primary) hypertension Essential (primary) h ypertension Diagnosis 01/06/2020 09:22:40 AM [facility] K56.609 Unspecified intestinal obstr uction, unspecified as to partial versus complete obstruction Unspecified intestinal obstruction, unsp ecified as to partial versus complete obstruction Diagnosis 01/06/2020 09:22:38 AM [facility] Colonic diverticular abscess Colonic diverticular absc ess Diagnosis 12/26/2019 04:24:36 PM [facility] Diverticulitis Diverticulitis Diagnosis 12/26/2019 04:24: 36 PM [facility] diverticulitis with abscess diverticulitis with absces s Diagnosis 12/26/2019 04:24:36 PM [facility] K57.20 Diverticulitis of large inte jose with perforation and abscess without bleeding Diverticulitis of large intestine with p erforation and abscess without bleeding Diagnosis 12/26/2019 02:12:46 AM EDT [facility] R41.82 Altered mental status, unspecified Altered menta l status, unspecified Diagnosis 12/26/2019 12:52:00 AM [facility] A02.1 Salmonella sepsis Salmonella sepsis Diagnosis 12/26/2019 12:52:00 AM [facility] Surgeries/Procedures Procedure Description Date Indications Data Source(s) POCT GLUCOSE, DOCKED POCT GLUCOSE, DOCKED Routine 01/09/2020 3:57 PM EDT 01/09/2020 03:57:00 PM [facility] POCT GLUCOSE, DOCKED POCT GLUCOSE, DOCKED Routine 01/09/2020 7:42 AM EDT 01/09/2020 07:42:00 AM [facility] BASIC METABOLIC PANEL CALCIUM TOTAL BASIC METABOLIC PANEL Routi ne 01/09/2020 5:05 AM EDT 01/09/2020 05:05:00 AM EDT [facility] BLOOD COUNT COMPLETE AUTO&AUTO DIFRNTL WBC COUNT CBC AND DIFFER ENTIAL Routine 01/09/2020 12:55 AM EDT 01/09/2020 12:55:00 AM [facility] PHOSPHORUS INORGANIC PHOSPHORUS LEVEL Routine 01/09/2020 12:55 AM E DT 01/09/2020 12:55:00 AM [facility] MAGNESIUM MAGNESIUM LEVEL Routine 01/09/2020 12:55 AM EDT 01/09/2020 12:55:00 AM [facility] GLUCOSE QUANTITATIVE BLOOD XCPT REAGENT STRIP POCT GLUCOSE, DOC KED Routine 01/08/2020 9:41 PM EDT 01/08/2020 09:41:00 PM [facility] CNTRST NJX ASSMT ABSC/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 VIA DRG CATH/TUBE SPX IR SINOGRAM Routine 01/08/2020 6:30 PM EDT 01/08/2020 06:30:55 PM EDT [facility] GLUCOSE QUANTITATIVE BLOOD XCPT REAGENT STRIP POCT GLUCOSEDARA Routine 01/08/2020 3:59 PM EDT 01/08/2020 03:59:00 PM [facility] GLUCOSE QUANTITATIVE BLOOD XCPT REAGENT STRIP POCT GLUCOSEDARA Routine 01/08/2020 8:43 AM EDT 01/08/2020 08:43:00 AM [facility] BLOOD COUNT COMPLETE AUTO&AUTO DIFRNTL WBC COUNT CBC AND DIFFER ENTIAL Routine 01/08/2020 4:34 AM EDT 01/08/2020 04:34:00 AM [facility] PHOSPHORUS INORGANIC PHOSPHORUS LEVEL Routine 01/08/2020 4:34 AM E DT 01/08/2020 04:34:00 AM [facility] MAGNESIUM MAGNESIUM LEVEL Routine 01/08/2020 4:34 AM EDT 01/08/2020 04:34:00 AM [facility] BASIC METABOLIC PANEL CALCIUM TOTAL BASIC METABOLIC PANEL Routi ne 01/08/2020 4:34 AM EDT 01/08/2020 04:34:00 AM EDT [facility] GLUCOSE QUANTITATIVE BLOOD XCPT REAGENT STRIP POCT GLUCOSEDARA Routine 01/08/2020 12:37 AM EDT 01/08/2020 12:37:00 AM [facility] GLUCOSE QUANTITATIVE BLOOD XCPT REAGENT STRIP POCT GLUCOSEDARA Routine 01/07/2020 5:09 PM EDT 01/07/2020 05:09:00 PM [facility] GLUCOSE QUANTITATIVE BLOOD XCPT REAGENT STRIP POCT GLUCOSEDARA Routine 01/07/2020 8:59 AM EDT 01/07/2020 08:59:00 AM [facility] XR ABDOMEN AP ABD SUPINE ONLY 09908 XR ABDOMEN AP ABD SUPIN E ONLY [id number] Routine 01/07/2020 4:15 AM EDT 01/07/2020 04:15:12 AM [facility] BLOOD COUNT COMPLETE AUTO&AUTO DIFRNTL WBC COUNT CBC AND DIFFER ENTIAL Routine 01/07/2020 3:31 AM EDT 01/07/2020 03:31:00 AM [facility] PHOSPHORUS INORGANIC PHOSPHORUS LEVEL Routine 01/07/2020 3:31 AM E DT 01/07/2020 03:31:00 AM [facility] MAGNESIUM MAGNESIUM LEVEL Routine 01/07/2020 3:31 AM EDT 01/07/2020 03:31:00 AM [facility] BASIC METABOLIC PANEL CALCIUM TOTAL BASIC METABOLIC PANEL Routi ne 01/07/2020 3:31 AM EDT 01/07/2020 03:31:00 AM EDT [facility] GLUCOSE QUANTITATIVE BLOOD XCPT REAGENT STRIP POCT GLUCOSE, DARA BERNAL Routine 01/07/2020 12:01 AM EDT 01/07/2020 12:01:00 AM [facility] GLUCOSE QUANTITATIVE BLOOD XCPT REAGENT STRIP POCT GLUCOSE, DARA BERNAL Routine 01/06/2020 3:57 PM EDT 01/06/2020 03:57:00 PM [facility] GLUCOSE QUANTITATIVE BLOOD XCPT REAGENT STRIP POCT GLUCOSE, DARA BERNAL Routine 01/06/2020 7:48 AM EDT 01/06/2020 07:48:00 AM [facility] BLOOD COUNT COMPLETE AUTO&AUTO DIFRNTL WBC COUNT CBC AND DIFFER ENTIAL Routine 01/06/2020 12:56 AM EDT 01/06/2020 12:56:00 AM [facility] PHOSPHORUS INORGANIC PHOSPHORUS LEVEL Routine 01/06/2020 12:56 AM E DT 01/06/2020 12:56:00 AM [facility] MAGNESIUM MAGNESIUM LEVEL Routine 01/06/2020 12:56 AM EDT 01/06/2020 12:56:00 AM [facility] BASIC METABOLIC PANEL CALCIUM TOTAL BASIC METABOLIC PANEL Routi ne 01/06/2020 12:56 AM EDT 01/06/2020 [facility]LO[facility] XCPT REAGENT STRIP POCT GLUCOSE, DARA BERNAL Routine 01/06/2020 12:50 AM EDT 01/06/2020 12:50:00 AM [facility] GLUCOSE QUANTITATIVE BLOOD XCPT REAGENT STRIP POCT GLUCOSE, DARA BERNAL Routine 01/05/2020 3:59 PM EDT 01/05/2020 03:59:00 PM [facility] GLUCOSE QUANTITATIVE BLOOD XCPT REAGENT STRIP POCT GLUCOSE, DARA BERNAL Routine 01/05/2020 8:38 AM EDT 01/05/2020 08:38:00 AM [facility] GLUCOSE QUANTITATIVE BLOOD XCPT REAGENT STRIP POCT GLUCOSE, DARA BERNAL Routine 01/05/2020 4:24 AM EDT 01/05/2020 04:24:00 AM [facility] BLOOD COUNT COMPLETE AUTO&AUTO DIFRNTL WBC COUNT CBC AND DIFFER ENTIAL Routine 01/05/2020 1:37 AM EDT [facility]05[facility]GANIC PHOSPHORUS LEVEL Routine 01/05/2020 1:37 AM E DT 01/05/2020 01:37:00 AM [facility] MAGNESIUM MAGNESIUM LEVEL Routine 01/05/2020 1:37 AM EDT 01/05/2020 [facility] BASIC [facility]OLIC PANEL CALCIUM TOTAL BASIC METABOLIC PANEL Routi ne 01/05/2020 1:37 AM EDT 01/05/2020 01:37:00 AM EDT [facility] XR CHEST FRONTAL ONLY 73438 XR CHEST FRONTAL ONLY 15732 STAT 01/04/2020 7:15 PM EDT 01/04/2020 07:15:00 PM EDT [facility] GLUCOSE QUANTITATIVE BLOOD XCPT REAGENT STRIP POCT GLUCOSE, DOC ANGELIQUED Routine 01/04/2020 5:33 PM EDT 01/04/2020 05:33:00 PM [facility] XR ABDOMEN AP ABD SUPINE ONLY 44630 XR ABDOMEN AP ABD SUPIN E ONLY 73491 Routine 01/04/2020 4:02 PM EDT 01/04/2020 04:02:00 PM [facility] COMPREHENSIVE METABOLIC PANEL COMPREHENSIVE METABOLIC PANEL Rou charley 01/04/2020 2:04 PM EDT 01/04/2020 02:04:00 PM EDT [facility] GLUCOSE QUANTITATIVE BLOOD XCPT REAGENT STRIP POCT GLUCOSE, DOC KED Routine 01/04/2020 12:12 PM EDT 01/04/2020 12:12:00 PM [facility] GLUCOSE QUANTITATIVE BLOOD XCPT REAGENT STRIP POCT GLUCOSE, DOC KED Routine 01/04/2020 8:39 AM EDT 01/04/2020 08:39:00 AM [facility] BLOOD COUNT COMPLETE AUTOMATED CBC AND DIFFERENTIAL Routine 01/04/2020 3:03 AM EDT 01/04/2020 03:03:00 AM EDT [facility] TRIGLYCERIDES TRIGLYCERIDES Routine 01/04/2020 3:03 AM EDT 01/04/2020 03:03:00 AM [facility] PHOSPHORUS INORGANIC PHOSPHORUS LEVEL Routine 01/04/2020 3:03 AM E DT 01/04/2020 [facility] MAGNESIUM LEVEL Routine 01/04/2020 3:03 AM EDT 01/04/2020 03:03:00 AM [facility] CALCIUM IONIZED CALCIUM, IONIZED Routine 01/04/2020 3:03 AM EDT 01/04/2020 03:03:00 AM [facility] BASIC METABOLIC PANEL CALCIUM TOTAL BASIC METABOLIC PANEL Routi ne 01/04/2020 3:03 AM EDT 01/04/2020 03:03:00 AM EDT [facility] GLUCOSE QUANTITATIVE BLOOD XCPT REAGENT STRIP POCT GLUCOSE, DOC KED Routine 01/04/2020 1:24 AM EDT 01/04/2020 01:24:00 AM [facility] PICC ULTRASOUND - BEDSIDE PROCEDURE PICC ULTRASOUND - BEDSI DE PROCEDURE Routine 01/03/2020 6:51 PM EDT 01/03/2020 06:51:00 PM [facility] GLUCOSE QUANTITATIVE BLOOD XCPT REAGENT STRIP POCT GLUCOSE, DARA MERINOD Routine 01/03/2020 5:36 PM EDT 01/03/2020 05:36:00 PM [facility] BASIC METABOLIC PANEL CALCIUM TOTAL BASIC METABOLIC PANEL Routi ne 01/03/2020 5:19 PM EDT 01/03/2020 05:19:[address] [facility] ABDOEN & PELVIS W/CONTRAST MATERIAL CT ABDOMEN PELVIS WI TH CONTRAST [id number] STAT 01/03/2020 1:23 PM EDT 01/03/2020 01:23:53 PM [facility] GLUCOSE QUANTITATIVE BLOOD XCPT REAGENT STRIP POCT GLUCOSE, DARA KED Routine 01/03/2020 12:27 PM EDT 01/03/2020 12:27:00 PM [facility] GLUCOSE QUANTITATIVE BLOOD XCPT REAGENT STRIP POCT GLUCOSE, DOC KED Routine 01/03/2020 8:41 AM EDT 01/03/2020 08:41:00 AM [facility] GLUCOSE QUANTITATIVE BLOOD XCPT REAGENT STRIP POCT GLUCOSE, DOC KED Routine 01/03/2020 6:16 AM EDT 01/03/2020 06:16:00 AM [facility] PROTHROMBIN TIME PROTIME INR Routine 01/03/2020 3:54 AM EDT 01/03/2020 03:54:00 AM [facility] BLOOD COUNT COMPLETE AUTO&AUTO DIFRNTL WBC COUNT CBC AND DIFFER ENTIAL Routine 01/03/2020 3:54 AM EDT 01/03/2020 03:54:00 AM [facility] BASIC METABOLIC PANEL CALCIUM TOTAL BASIC METABOLIC PANEL Routi ne 01/03/2020 3:54 AM EDT 01/03/2020 03:54:00 AM EDT [facility] GLUCOSE QUANTITATIVE BLOOD XCPT REAGENT STRIP POCT GLUCOSE, DARA BERNAL Routine 01/02/2020 11:53 PM EDT 01/02/2020 11:53:00 PM [facility] GLUCOSE QUANTITATIVE BLOOD XCPT REAGENT STRIP POCT GLUCOSE, DARA BERNAL Routine 01/02/2020 8:52 PM EDT 01/02/2020 08:52:00 PM [facility] GLUCOSE QUANTITATIVE BLOOD XCPT REAGENT STRIP POCT GLUCOSE, DARA BERNAL Routine 01/02/2020 5:45 PM EDT 01/02/2020 05:45:00 PM [facility] GLUCOSE QUANTITATIVE BLOOD XCPT REAGENT STRIP POCT GLUCOSE, DARA BERNAL Routine 01/02/2020 4:05 PM EDT 01/02/2020 04:05:00 PM [facility] GLUCOSE QUANTITATIVE BLOOD XCPT REAGENT STRIP POCT GLUCOSE, DARA BERNAL Routine 01/02/2020 2:55 PM EDT 01/02/2020 02:55:00 PM [facility] GLUCOSE QUANTITATIVE BLOOD XCPT REAGENT STRIP POCT GLUCOSE, DARA BERNAL Routine 01/02/2020 1:47 PM EDT 01/02/2020 01:47:00 PM [facility] GLUCOSE QUANTITATIVE BLOOD XCPT REAGENT STRIP POCT GLUCOSE, DARA BERNAL Routine 01/02/2020 1:27 PM EDT 01/02/2020 01:27:00 PM [facility] GLUCOSE QUANTITATIVE BLOOD XCPT REAGENT STRIP POCT GLUCOSE, DARA BERNAL Routine 01/02/2020 12:43 PM EDT 01/02/2020 12:43:00 PM [facility] XR ABDOMEN AP ABD SUPINE ONLY 55235 [place] [address] STAT 01/02/2020 8:17 AM EDT 01/02/2020 08:17:00 AM [facility] BLOOD COUNT COMPLETE AUTO&AUTO DIFRNTL WBC COUNT CBC AND DIFFER ENTIAL Routine 01/02/2020 4:02 AM EDT 01/02/2020 04:02:00 AM [facility] BASIC METABOLIC PANEL CALCIUM TOTAL BASIC METABOLIC PANEL Routi ne 01/02/2020 4:02 AM EDT 01/02/2020 04:02:00 AM EDT [facility] XR ABDOMEN AP ABD SUPINE ONLY 11792 [place] [address] STAT 01/01/2020 7:38 PM EDT 01/01/2020 07:38:00 PM [facility] GLUCOSE QUANTITATIVE BLOOD XCPT REAGENT STRIP POCT GLUCOSEDARA Routine 01/01/2020 5:37 PM EDT 01/01/2020 05:37:00 PM [facility] ULTRASOUND TRANSVAGINAL US TRANSVAGINAL [id number] Routine 020 3:19 PM EDT 01/01/2020 03:19:56 PM EDT [facility] GLUCOSE QUANTITATIVE BLOOD XCPT REAGENT STRIP POCT GLUCOSEDARA Routine 01/01/2020 12:16 PM EDT 01/01/2020 12:16:00 PM [facility] GLUCOSE QUANTITATIVE BLOOD XCPT REAGENT STRIP POCT GLUCOSEDARA Routine 01/01/2020 9:01 AM EDT 01/01/2020 09:01:00 AM [facility] RADEX SMALL INTESTINE W/MULTIPLE SERIAL FILMS FLUORO SMALL BOWEL SERIES SINGLE CONTRAST STUDY [id number] Routine 01/01/2020 8:00 AM EDT 01/01/2020 08:00:00 AM [facility] BLOOD COUNT COMPLETE AUTOMATED CBC AND DIFFERENTIAL Routine 01/01/2020 3:10 AM EDT 01/01/2020 03:10:00 AM EDT [facility] PHOSPHORUS INORGANIC PHOSPHORUS LEVEL Routine 01/01/2020 3:10 AM E DT 01/01/2020 03:10:00 AM [facility] MAGNESIUM MAGNESIUM LEVEL Routine 01/01/2020 3:10 AM EDT 01/01/2020 03:10:00 AM [facility] BASIC METABOLIC PANEL CALCIUM TOTAL BASIC METABOLIC PANEL Routi ne 01/01/2020 3:10 AM EDT 01/01/2020 03:10:00 AM EDT [facility] GLUCOSE QUANTITATIVE BLOOD XCPT REAGENT STRIP POCT GLUCOSEDARA Routine 12/31/2019 9:41 PM EDT 12/31/2019 09:41:00 PM [facility] GLUCOSE QUANTITATIVE BLOOD XCPT REAGENT STRIP POCT GLUCOSEDARA Routine 12/31/2019 9:24 PM EDT 12/31/2019 09:24:00 PM [facility] GLUCOSE QUANTITATIVE BLOOD XCPT REAGENT STRIP POCT GLUCOSE, DOC KED Routine 12/31/2019 5:42 PM EDT 12/31/2019 05:42:00 PM [facility] GLUCOSE QUANTITATIVE BLOOD XCPT REAGENT STRIP POCT GLUCOSE, DOC KED Routine 12/31/2019 12:41 PM EDT 12/31/2019 [facility] AEROBIC W/ID ISOLATES BLOOD CULTURE R outine 12/31/2019 12:27 PM EDT 12/31/2019 12:27:00 PM EDT [facility] CULTURE BACTERIAL BLOOD AEROBIC W/ID ISOLATES BLOOD CULTURE R outine 12/31/2019 12:27 PM EDT 12/31/2019 12:27:00 PM EDT [facility] CARDIAC REPORT CARDIAC REPORT 12/31/2019 12:13 PM EDT 12/31/2019 12:13:21 PM [facility] RADIOLOGY REPORT RADIOLOGY REPORT 12/31/2019 12:13 PM EDT 12/31/2019 12:13:15 PM [facility] GLUCOSE QUANTITATIVE BLOOD XCPT REAGENT STRIP POCT GLUCOSE, DOC KED Routine 12/31/2019 8:46 AM EDT 12/31/2019 08:46:00 AM [facility] BLOOD COUNT COMPLETE AUTO&AUTO DIFRNTL WBC COUNT CBC AND DIFFER ENTIAL Routine 12/31/2019 3:50 AM EDT 12/31/2019 03:50:00 AM [facility] PHOSPHORUS INORGANIC PHOSPHORUS LEVEL Routine 12/31/2019 3:50 AM E DT 12/31/2019 03:50:00 AM [facility] MAGNESIUM MAGNESIUM LEVEL Routine 12/31/2019 3:50 AM EDT 12/31/2019 03:50:00 AM [facility] BASIC METABOLIC PANEL CALCIUM TOTAL BASIC METABOLIC PANEL Routi ne 12/31/2019 3:50 AM EDT 12/31/2019 03:50:00 AM EDT [facility] GLUCOSE QUANTITATIVE BLOOD XCPT REAGENT STRIP POCT GLUCOSE, DOC KED Routine 12/30/2019 9:18 PM EDT 12/30/2019 09:18:00 PM [facility] XR CHEST FRONTAL ONLY 25510 XR CHEST FRONTAL ONLY 20059 Routine 12/30/2019 5:25 PM EDT 12/30/2019 05:25:00 PM EDT [facility] GLUCOSE QUANTITATIVE BLOOD XCPT REAGENT STRIP POCT GLUCOSE, DOC KED Routine 12/30/2019 5:00 PM EDT 12/30/2019 05:00:00 PM [facility] GLUCOSE QUANTITATIVE BLOOD XCPT REAGENT STRIP POCT GLUCOSE, DOC KED Routine 12/30/2019 12:50 PM EDT 12/30/2019 12:50:00 PM [facility] MRI BRAIN BRAIN STEM W/O &W/CONTRAST MATERIAL MR BRAPerry N WITH AND WITHOUT CONTRAST [id number] STAT 12/30/2019 4:32 AM EDT Altered mental status, unspecified altered mental status type 12/30/2019 04:32:49 AM EDT Altered mental status, unspecified altered mental stat [facility] Altered mental status, unspecified alter ed mental status type PHOSPHORUS INORGANIC PHOSPHORUS LEVEL Routine 12/30/2019 2:51 AM E DT 12/30/2019 02:51:00 AM [facility] MAGNESIUM MAGNESIUM LEVEL Routine 12/30/2019 2:51 AM EDT 12/30/2019 02:51:00 AM [facility] BASIC METABOLIC PANEL CALCIUM TOTAL BASIC METABOLIC PANEL Routi ne 12/30/2019 2:51 AM EDT 12/30/2019 02:51:00 AM EDT [facility] BLOOD COUNT COMPLETE AUTOMATED CBC AND DIFFERENTIAL Routine 12/30/2019 2:51 AM EDT 12/30/2019 02:51:00 AM EDT [facility] CUL BACT XCPT URINE BLOOD/STOOL AEROBIC ISOL WOUND CULTURE Ro utine 12/29/2019 8:03 PM EDT 12/29/2019 08:03:00 PM EDT [facility] IR IMAGE GUIDED NEEDLE DRAIN PROCEDURE IR IMAGE GUIDED NEED LE DRAIN PROCEDURE Routine 12/29/2019 5:50 PM EDT 12/29/2019 05:50:00 PM [facility] PROTHROMBIN TIME PROTIME INR Routine 12/29/2019 1:49 PM EDT 12/29/2019 01:49:[address] [facility] [address] ABDOEN & PELVIS W/CONTRAST MATERIAL CT ABDOMEN PELVIS WI TH CONTRAST 16147 Routine 12/29/2019 5:13 AM EDT 12/29/2019 05:13:50 AM [facility] BLOOD COUNT COMPLETE AUTO&AUTO DIFRNTL WBC COUNT CBC AND DIFFER ENTIAL Routine 12/29/2019 3:11 AM EDT 12/29/2019 03:11:00 AM EDT [facility] BASIC METABOLIC PANEL CALCIUM TOTAL BASIC METABOLIC PANEL Routi ne 12/29/2019 3:11 AM EDT 12/29/2019 03:11:00 AM EDT [facility] GLUCOSE QUANTITATIVE BLOOD XCPT REAGENT STRIP POCT GLUCOSE, DOC KED Routine 12/29/2019 1:30 AM EDT 12/29/2019 01:30:00 AM EDT [facility] XR CHEST FRONTAL ONLY 54194 XR CHEST FRONTAL ONLY 75213 STAT 12/29/2019 12:20 AM EDT 12/29/2019 12:20:00 AM EDT [facility] XR ABDOMEN AP ABD SUPINE ONLY 16192 XR ABDOMEN AP ABD SUPIN E ONLY 79654 Routine 12/28/2019 9:02 PM EDT 12/28/2019 [facility] 41896 XR CHEST FRONTAL ONLY 23994 Routine 12/28/2019 4:25 PM EDT 12/28/2019 04:25:00 PM EDT [facility] RADIOLOGIC EXAMINATION FOOT 2 VIEWS XR FOOT AP AND LATERAL [id number] Routine 12/28/2019 3:20 PM EDT 12/28/2019 03:20:32 PM EDT [facility] BLOOD COUNT COMPLETE AUTOMATED CBC AND DIFFERENTIAL Routine 12/28/2019 3:30 AM EDT 12/28/2019 03:30:00 AM EDT [facility] BASIC METABOLIC PANEL CALCIUM TOTAL BASIC METABOLIC PANEL Routi ne 12/28/2019 3:30 AM EDT 12/28/2019 03:30:00 AM EDT [facility] BASIC METABOLIC PANEL CALCIUM TOTAL BASIC METABOLIC PANEL Routi ne 12/27/2019 6:41 PM EDT 12/27/2019 06:41:00 PM EDT [facility] BLOOD COUNT COMPLETE AUTO&AUTO DIFRNTL WBC COUNT CBC AND DIFFER ENTIAL Routine 12/27/2019 4:05 AM EDT 12/27/2019 04:05:00 AM [facility] LACTATE LACTIC ACID LEVEL, PLASMA Timed 12/27/2019 4:05 AM EDT [facility] CALCI[facility] TOTAL BASIC METABOLIC PANEL Routi ne 12/27/2019 4:05 AM EDT 12/27/2019 04:05:00 AM EDT [facility] CT HEAD/BRAIN W/O CONTRAST MATERIAL CT HEAD WITHOUT CONTRAST 70 450 Urgent 12/26/2019 11:10 PM EDT 12/26/2019 11:10:30 PM EDT [facility] LACTATE LACTIC ACID LEVEL, PLASMA Timed 12/26/2019 9:44 PM EDT 12/26/2019 09:44:00 PM EDT [facility] LACTATE LACTIC ACID LEVEL, PLASMA STAT 12/26/2019 7:31 PM EDT 12/26/2019 07:31:00 PM [facility] GLUCOSE QUANTITATIVE BLOOD XCPT REAGENT STRIP POCT GLUCOSE, DOC KED Routine 12/26/2019 6:43 PM EDT 12/26[facility]2019 [facility] XCPT REAGENT STRIP POCT GLUCOSE, DOC KED Routine 12/26/2019 5:20 PM EDT 12/26/2019 05:20:00 PM [facility] SEPSIS WORKUP SEPSIS WORKUP Routine 12/26/2019 4:45 PM EDT Sepsis due to Salmonella species without acute organ dysfunction 12/26/2019 04:45:10 PM EDT Sepsis due to Salmonella species without acute organ dysfunction [facility] Sepsis due to Salmonella species without acute organ dysfunction CUL BACT XCPT URINE BLOOD/STOOL AEROBIC ISOL WOUND CULTURE Ro utine 12/26/2019 4:41 PM EDT 12/26/2019 04:41:00 PM EDT [facility] XR ABDOMEN AP ERECT ONLY 39337 XR ABDOMEN AP ERECT ONLY [id number] C ODE 12/26/2019 4:35 PM EDT 12/26/2019 04:35:00 PM EDT [facility] BLOOD COUNT COMPLETE AUTO&AUTO DIFRNTL WBC COUNT CBC AND DIFFER ENTIAL Routine 12/26/2019 4:05 PM EDT 12/26[facility]2019 [facility] L[facility] ACID LEVEL, PLASMA Timed 12/26/2019 4:05 PM EDT 12/26[facility]2019 [facility] CALCIUM TOTAL BASIC METABOLIC PANEL Routi ne 12/26/2019 4:05 PM EDT 12/26/2019 04:05:00 PM EDT [facility] CULTURE BACTERIAL BLOOD AEROBIC W/ID ISOLATES BLOOD CULTURE S TAT 12/26/2019 4:02 PM EDT 12/26/2019 04:02:00 PM EDT [facility] CULTURE BACTERIAL BLOOD AEROBIC W/ID ISOLATES BLOOD CULTURE S TAT 12/26/2019 4:02 PM EDT 12/26/2019 04:02:00 PM EDT [facility] EKG 12-LEAD - CMAXX REPORT EKG 12-LEAD - CMAXX REPORT 12/26/2019 3:38 PM EDT 12/26/2019 03:38:12 PM EDT [facility] EKG 12-LEAD - CMAXX REPORT EKG 12-LEAD - CMAXX REPORT 12/26/2019 3:38 PM EDT 12/26/2019 03:38:12 PM EDT [facility] EKG 12-LEAD EKG 12-LEAD Routine 12/26/2019 3:38 PM EDT 12/26[facility]2019 [facility] NEEDLE DRAIN PROCEDURE IR IMAGE GUIDED NEED LE DRAIN PROCEDURE Routine 12/26/2019 3:05 PM EDT 12/26/2019 03:05:54 PM [facility] [id number] XR CHEST FRONTAL ONLY [id number] Routine 12/26/2019 9:51 AM EDT 12/26/2019 09:51:00 AM EDT [facility] BLOOD COUNT COMPLETE AUTO&AUTO DIFRNTL WBC COUNT CBC AND DIFFER ENTIAL Routine 12/26/2019 9:17 AM EDT 12/26/2019 09:17:00 AM [facility] LACTATE LACTIC ACID LEVEL, PLASMA Routine 12/26/2019 9:17 AM EDT 12/26/2019 09:17:00 AM [facility] BASIC METABOLIC PANEL CALCIUM TOTAL BASIC METABOLIC PANEL Routi ne 12/26/2019 9:17 AM EDT 12/26/2019 09:17:00 AM EDT [facility] VASC LAB NON-INVAS PHYSIOLOGIC STD EXTREMITY ART 1-2 L EVEL VASC LAB NON-INVAS PHYSIOLOGIC STD EXTREMITY ART 1-2 LEVEL Routine 12/26/2019 7:25 AM EDT 12/26/2019 07:25:00 AM [facility] COVID-19 PCR COVID-19 PCR Routine 12/26/2019 2:23 AM EDT 12/26/2019 02:23:00 AM [facility] CULTURE BACTERIAL BLOOD AEROBIC W/ID ISOLATES BLOOD CULTURE R outine 12/26/2019 2:23 AM EDT 12/26/2019 02:23:00 AM EDT [facility] CULTURE BACTERIAL BLOOD AEROBIC W/ID ISOLATES BLOOD CULTURE R outine 12/26/2019 2:23 AM EDT 12/26/2019 02:23:00 AM EDT [facility] PROTHROMBIN TIME PROTIME INR Routine 12/26/2019 2:23 AM EDT 12/26/2019 02:23:00 AM EDT [facility] BLOOD COUNT COMPLETE AUTO&AUTO DIFRNTL WBC COUNT CBC AND DIFFER ENTIAL Routine 12/26/2019 2:23 AM EDT [facility]GANIC PHOSPHORUS LEVEL Routine 12/26/2019 2:23 AM E DT 12/26/2019 [facility] MAGNESIUM MAGNESIUM LEVEL Routine 12/26/2019 2:23 AM EDT 12/26[facility]2019 [facility]EL HEPATIC FUNCTION PANEL A Routine 12/26/2019 2:23 AM EDT 12/26/2019 02:23:00 AM EDT [facility] BASIC METABOLIC PANEL CALCIUM TOTAL BASIC METABOLIC PANEL Routi ne 12/26/2019 2:23 AM EDT 12/26/2019 02:23:00 AM EDT [facility] RESPIRATORY PATHOGEN PANEL RESPIRATORY PATHOGEN PANEL Routine 12/26/2019 2:11 AM EDT 12/26/2019 02:11:00 AM EDT [facility] EKG 12-LEAD - CMAXX REPORT EKG 12-LEAD - CMAXX REPORT 12/26/2019 2:08 AM EDT 12/26/2019 02:08:22 AM EDT [facility] EKG 12-LEAD - CMAXX REPORT EKG 12-LEAD - CMAXX REPORT 12/26/2019 2:08 AM EDT 12/26/2019 02:08:22 AM EDT [facility] EKG 12-LEAD EKG 12-LEAD Routine 12/26/2019 2:08 AM EDT 12/26/2019 02:08:22 AM EDT [facility] VASC LAB US DOPPLER LOWER EXTREMITY BILATERAL VENOUS C OMP 38434 VASC LAB US DOPPLER LOWER EXTREMITY BILATERAL VENOUS COMP [id number] Routine 1:47 AM EDT 12/26/2019 01:47:00 AM EDT [facility] Office Visit, Est Pt., Level 4 PC 07/01/2019 12:00:00 AM EDT eCW1 ([facility]) Office Visit, Est Pt., Level 2 FC 07/01/2019 12:00:00 AM EDT eCW1 ([facility]) TeleMedicine Est. Pt. Level 3 06/16/2019 12:00:00 AM E DT eCW1 ([facility]) Office Visit, Est Pt., Level 3 FC 05/20/2019 12:00:00 AM EDT eCW1 ([facility]) Office Visit, Est Pt., Level 2 PC 05/20/2019 12:00:00 AM EDT eCW1 ([facility]) Office Visit, New Pt., Level 3 FC 05/06/2019 12:00:00 AM EST eCW1 ([facility]) Office Visit, New Pt., Level 2 PC 05/06/2019 12:00:00 AM EST eCW1 ([facility]) Influenza immunization administered or previously received 05/06/2019 12:00:00 AM EST eCW1 ([facility]) TRANS CARE MGMT 14 DAY DISCH 05/06/2019 12:00:00 AM ES T eCW1 ([facility]) Transitional Care NO CHARGE Visit 04/28/2019 12:00:00 AM EST eCW1 ([facility]) Office Visit, Est Pt., Level 3 PC 03/23/2019 12:00:00 AM EST eCW1 ([facility]) Results ID Date Data Source [id number] 03/16/2020 09:44:32 PM EST [facility] Hospital Name Value Range Interpretation Code Description Data [place] rce(s) Supporting Document(s) Progress Note [facility] [id number]/[id number]mOTG3zQ8vKTE3LXqCCiTpEzTnOIX9 [facility] [file] hfFcGakNpA8sTanELiGNA+vcFax47HpAGPT5ypK+[employer] STkxFvGVwIYCdNF3lJqvk4xxW1MU+tcfTTVnpY2fFcGGoFwEG8YIxYTPANhcCi4Tywuw3GuX5gEJnmsz w8rsPpvbm9LbBY63P3snwo14PCpN8wTACHazEqnUNg4p0mDeWmuHsjCkBxnhshYr58qpHIlCGXzEOiwn GwouLgQiDmZRmheNZMqIPHQwAW0mwQ4qN+B8g/CBf7 MI3NSCKMAhHVZ8a1QN1I4dzF5AKt+6WwuxCeaXuSr72Ho62YKK22oO+KCbotfr5Jf1pm5lwMS0hShQIX xomhMYeAPjQwr5vGBQfRvgHwgkcLfP8LzXoxDTW6XvxtO6CJsVU5MNRs+t3tPDnzSKxT/DbqFF7q/4xJ OOAtmtjc7pQ8vk2NgWZ2aDEhKsm6PLx68DoMAWFJ7+ r5WJL4McyORLYg4I36kQzSEki/uGL5zF0VGVSFg1m1MWw8J00bqtBK+XE601EMc4N6qpYgvumsX1+NSs Tm62tyFaln8t18QrjE2WDOGdzq61GhMu68lBGDbzO+OOlrJY1v2MV8DZSJlaXwuie9pW2vHjiJ2rWbQw HVFjnelLEYVGA5tjnQTmYQF1HkXeJmfI9V7I51ma/C b7Mx+tJ2Ev6RTibFcGaq++K+RyuJ9ky4+VbRR/SXGKrpeAcEis8FUzm+JKoNtn+DGdK0ePX2EY7RLbW3 vXa31+rtH2ua+aVUMlNXP7QVsk9wcNod6gyydqjGu0DZZxVNBI3pBToclqunw+SWJVolATkzJheu7HKB EXSWBSUYTJGAhDFki+MPHCY3A9K4239rwRPGmMcPBR Kig4AV3DYjDmHHlpVM5PO/Ou+s2Dc1aq9091lee54sS5EtxEPtweiV7v/BfE9+/h+YMiK5EOvoovMzmG UbOQ0XPrOsPI3ooy2LDXUrYFPkWyjURnUvEOzFFrBhEIEiBRffZR9FXTwvHJrrBXSfT0RmzuUvzTKuJY KnIz9XHCDpMY8YSCWnuQWdUIWnFuHmOCDSLqKkXFPk WLRumOVOi8xsLbOmFLH7KXKjVadxQX4IIZGtEI8Bc765AQ00zvBmWPErSKUMClGmKSVtF9GolQIlPEwe L5JlV2AnZD0plIQcJR7auAMhI8XqF2CjldxfBLYIYnCfGKWqFQhuLKLgCqCnPMwwXNY+Vb5PZXE+Pg0K WR8fk4TrIEsmKqSzOV6qtn1MTWG5ZU8NuEd2OBDiD9 UhQVDhBTIfc8KpEZ6APP8cqZrrOAp5TO7+PZrhQCC5koDldZ2RHHBdgVgiJ4DSyI+p4j/OI0fZxTtOHr MGbZ6YIWbOkPMGqeNuxnSYxmUvboDaQLt7wAw6kRh8SgtuB8CfCpu7+t6b4wNd+fZZj4jfXOK4q815C7 t+7bGV7IonhSglsZIx4xkqlfT6b6B8Arn7LV2B2UwH nbXZbLh/GZ661qwBw+zusaNz9zmh01VvpRakZW9wglSs8tkC//VmPByNz1+/wcjlZ8IrUGiGAxH1+TON X248hqU208OtiSpDDjxHgmh2Z/d1P+r6tlvAs9XPn8HRP5asOA10rdgmx9CobAlrCDL/zj88f+4Gf7it gXu/1E6j6G7qk34KX73rsZXfkLzuEF3WKXclnjtxjd 0PJz1tyWERgfu+wNh3NyA+Wm9kgCgylEp7849oHW4YOtYePZr3VhyiVyvQHpwJRI5fN7PwERW/I1iRLu 4S8YiiPHdhf97JwH5DZJu40e7c5PYTWd03lR5DJCHzDPkgnldVwqzd7ocvNx0Qat5YFt/EwSUkN/lFbv SBMRUxZiqxDITFGEZZf8hHUYpgoxrQQBJf9HzOTsIY [file] ICAgICAgICAgICAgICAgICAgICAgICAgICAgICAgICAgICAgICAgICAgICAgICAgICAgICAgICAgICAg ICAgICAgICAgICAgICAgICAgDQogICAgICAgICAgIC AgICAgICAgICAgICAgICAgICAgICAgICAgICAgICAgICAgICAgICAgICAgICAgICAgICAgICAgICAgIC AgICAgICAgICAgICAgICAgICAgICAgICAgICAgDQogICAgICAgICAgICAgICAgICAgICAgICAgICAgIC AgICAgICAgICAgICAgICAgICAgICAgICAgICAgICAg ICAgICAgICAgICAgICAgICAgICAgICAgICAgICAgICAgICAgICAgDQogICAgICAgICAgICAgICAgICAg ICAgICAgICAgICAgICAgICAgICAgICAgICAgICAgICAgICAgICAgICAgICAgICAgICAgICAgICAgICAg ICAgICAgICAgICAgICAgICAgICAgDQogICAgICAgIC AgICAgICAgICAgICAgICAgICAgICAgICAgICAgICAgICAgICAgICAgICAgICAgICAgICAgICAgICAgIC AgICAgICAgICAgICAgICAgICAgICAgICAgICAgICAgDQogICAgICAgICAgICAgICAgICAgICAgICAgIC AgICAgICAgICAgICAgICAgICAgICAgICAgICAgICAg ICAgICAgICAgICAgICAgICAgICAgICAgICAgICAgICAgICAgICAgICAgDQogICAgICAgICAgICAgICAg ICAgICAgICAgICAgICAgICAgICAgICAgICAgICAgICAgICAgICAgICAgICAgICAgICAgICAgICAgICAg ICAgICAgICAgICAgICAgICAgICAgICAgDQogICAgIC AgICAgICAgICAgICAgICAgICAgICAgICAgICAgICAgICAgICAgICAgICAgICAgICAgICAgICAgICAgIC AgICAgICAgICAgICAgICAgICAgICAgICAgICAgICAgICAgDQogICAgICAgICAgICAgICAgICAgICAgIC AgICAgICAgICAgICAgICAgICAgICAgICAgICAgICAg ICAgICAgICAgICAgICAgICAgICAgICAgICAgICAgICAgICAgICAgICAgICAgDQogICAgICAgICAgICAg ICAgICAgICAgICAgICAgICAgICAgICAgICAgICAgICAgICAgICAgICAgICAgICAgICAgICAgICAgICAg SIHcZMZvMWHhFFIhDWGzIRBzLNRnNXUnJLXaSKi3M9 tpPCPgFSVtBT3eVAc9Nh4+NAuLTlGgPJV1vxChoI3DFZ9xc7XdGTpzKIInj7EeMFl1JT8YWKCpOQfaUT 0GMLysys7WJGKuDQJonOLDu4bkTkMwAFQ9VXTxIxspSE9MHNDzJ8rihhFpUPPmFNYJEDcfVXDSUDnfHT PHFRQrGQXaGvTkBeObSFJdTM5XXOKiJ202mhScWU0L Xe0UXtHcLG2czw9WSounPEOeKbmYZgv1PYfgVX0IoMCtcYWtNTWkPYUOSdJxO5llv8QwLllsTFJPLVmq RL6Yj8LkfSJdGVn+Qd7COW4tl5BoFSukYJYiGR6psp4AHZiMNwAaK9YunTbfFKOqw1ezDLOiJY5tnNOi BHN6TPqiksUrMUMtbUkkAuYMGPHZTZYckBGdWp2sAx 3yOHNjGAIpFlI6QVRFKH9MZFExGXApnSFcFCIpUNKNTC0FOPdiJJT4IJWbfgPdbJQcCDhfVL5POYNmsi QgMjcgMCBSDQo+Ue0VZG0hj2GwHItmZZGdYB8guy6RZUsWBrXlS7T7hTRcX4D8CExjOe4OTYIuACMeGz SkNWZFODtxRE0ZGS1vhzL4FR4TzJJsKBQtOZMwuLFk TVp4K37apJGzSYfpIB3DHUA+Scarlett+Vq9RXHGrSFEyHSGbJjJzEDKVJnKdI6YkL9AKx4KoX2OwXE63kZju ytXxEVoqES1YBC3nZNLoJFTITR7NaKOwkT2uziKiRiCmNXPLBvPrS67vrJPuWEJsITS1IWIxYh4HOMLz G6NzfhVyaWvttxNjCJMcWNLHWM3SOBvphrSoiGXytW tqRV44sJtvPQ6CXb3WPsVdNY5czj1AtKIrWb1OUCBbSR3TDFHpSKPsYNBdMWV4KXHcBzSnJVihHCFvLQ MmKSA2SAHqKVPkQJ7NJuTcNWEtXMS7NRqlVRZoWPCooz6ZDYOyFQZ6AKXtIiHdRJPpISUgTNagWLFwEU LgLYH6VBPiQQDrMX1GLeHtHQFiIXH9GaOiICCjBDTd im7RHVOrOCUsSlmoXINjNBOdRWEaOApeOMRgNAP0YNtyOPCyAKTcQT5TApRaQBGuVCw8WYGiABJuHEGj fy1GRQTgLCVvABZ2VJZrLHVlISCrRLxnIEIbEPAeJeS9CZNqOZIiCB3HAxWjBUNcPDVaCuTeAPMuIGMx xt3PEHMvWUFvMKU7XBBsDTWuCTPfJLscORGwKSP5Di NqYPDgANZhEX4AWhNeLEUnJNA2QNluQCEyJFEtyf0LXONwPMLoXjE5YJQmWPWkMQRyIUznGCUyVCH6Fu w7IYWsTOYrMW0WIdLyNXReZQs5FXbjHGGfOLWzbs2FADNoUBFgBCwvUyIdRAYqLYEdLHuuBEAzRRX9LM W8ZYPoYUYpLR8LRfCiQUFeLNqqPTjsIMDcSMIuuy9G SSCcJFX6SJa0KAWjNBTlEONeHRpyRKPhQOYlXsu8PIRqZXZuAW1DEtQrKVKtDQF1MCgvSLBwRNAsps3Z MHJpUNU0KiD8XFNrICKwWJFwZFnyFARdGXVnMTz3QOFuIYDoNZ0IWwKxFQEeLDF7FIsjTIVoRPBjht0B WWBeTDJ3CZL2SHGhZDOqKWGfONreVJQcGFK8XRLrJL RgBWGdBJ7UFsWeFHLmVQK1HKXfZFIeNJIqmw4VuGRmvDwomv4JFCnPCj6NqChuHVUmJFtwEw5utXFfEG NrFLUICd9ZfyFsFUVzQOIITBmvCJRhVIV8XjAfYkU0TPLkGrU5TNUoVNAnSVRgYMJrVJSvIEIuLeE8Ee IcOPH3OOu8KlZnXzl4WTI8VYY9IbG2RgW4URA0HsC+ JC8nKKu+Ok6Mq7EfkrW6xcKvXUl9EKfzXo9FPNKVZ8BBDi== ID Date Data Source [id number] 03/14/2020 12:05:00 PM EST [facility] Name Value Range Interpretation Code Description Data [place] rce(s) Supporting Document(s) SARS coronavirus 2 RNA Not Detected [facility] reported by [facility]. ID Date Data Source [id number] 03/17/2020 08:53:00 AM EST [facility] Name Value Range Interpretation Code Description Data [place] rce(s) Supporting Document(s) SARS-CoV-2, [place] Not Detected Not Detected [facility] This nucleic acid amplification test was developed and its performancecharacteristics determined by [employer]. Nucleic acidamplification tests include PCR and TMA. [...] assay. ORDER COVID 19 2 DAY YES [facility] ID Date Data Source [id number] 03/10/2020 10:00:00 AM EST [facility] Name Value Range Interpretation Code Description Data [place] rce(s) Supporting Document(s) SARS coronavirus 2 RNA [facility] This lab was ordered by [facility] rashawn and reported by [facility]. ID Date Data Source [id number] 03/11/2020 03:12:00 PM EST [facility] Name Value Range Interpretation Code Description Data [place] rce(s) Supporting Document(s) SARS-CoV-2, [place] Not Detected Not Detected [facility] This nucleic acid amplification test was developed and its performancecharacteristics determined by [employer]. Nucleic acidamplification tests include PCR and TMA. [...] in this assay. ID Date Data Source [id number] 03/07/2020 10:50:00 AM EST [facility] Name Value Range Interpretation Code Description Data [place] rce(s) Supporting Document(s) SARS coronavirus 2 RNA [facility] This lab was ordered by [facility]o and reported by [facility]. ID Date Data Source [id number] 03/10/2020 10:54:00 PM [facility] Name Value Range Interpretation Code Description Data [place] rce(s) Supporting Document(s) SARS-CoV-2, [place] Not Detected Not Detected [facility] This nucleic acid amplification test was developed and its performancecharacteristics determined by [employer]. Nucleic acidamplification tests include PCR and TMA. [...] in this assay. ID Date Data Source [id number] 03/03/2020 01:50:00 PM EST [facility] Name Value Range Interpretation Code Description Data [place] rce(s) Supporting Document(s) SARS coronavirus 2 RNA [facility] This lab was ordered by [facility] rashawn and reported by [employer]. ID Date Data Source [id number] 03/05/2020 04:10:00 PM EST [facility] Name Value Range Interpretation Code Description Data [place] rce(s) Supporting Document(s) SARS-CoV-2, [place] Not Detected Not Detected [facility] This nucleic acid amplification test was developed and its performancecharacteristics determined by [employer]. Nucleic acidamplification tests include PCR and TMA. [...] in this assay. ID Date Data Source [id number] 03/03/2020 09:10:00 AM [facility] Name Value Range Interpretation Code Description Data [place] rce(s) Supporting Document(s) [facility] Cholesterol [Mass/volume] in Serum or Plasma 105 MG/DL 131 - 200 L [facility] Deprecated Triglyceride [Mass/volume] in Serum or Plasma 80 MG/DL 3 5 - 160 [facility] HDL 47 MG/DL 29 - 86 [facility] al Cholesterol in LDL [Mass/volume] in Serum or Plasma by Direc t assay 40 mg/dL 65 - 175 L [facility] Cholesterol.total/Cholesterol in HDL [Mass Ratio] in Serum o r Plasma 2.2 3.2 - 4.4 L [facility] LDL/HDL 0.85 1.47 - 3.22 L [facility] ital CVE RISK CHOL/HDL LDL/HDLMEN: 1/2 AVERAGE 3.43 1.00 AVERAGE 4.97 3.55 2X AVERAGE 9.55 6.25 3X AVERAGE 23.99 7.99WOMEN: 1/2 AVERAGE 3.27 1.47 AVERAGE 4.44 3.22 2X AVERAGE 7.05 5.03 3X AVERAGE 11.04 6.14 ID Date Data Source [id number] 03/03/2020 09:09:00 AM [facility] Name Value Range Interpretation Code Description Data [place] rce(s) Supporting Document(s) COMPREHENSIVE METABOLIC PANEL [facility] COMPREHENSIVE METABOLIC PANEL Sodium [Moles/volume] in Serum or Plasma 141 mEq/L 134 - 153 [facility] Potassium [Moles/volume] in Serum or Plasma 4.2 mEq/L 3.6 - 5.0 [facility] Chloride [Moles/volume] in Serum or Plasma 104 mEq/L 98 - 107 [facility] Carbon dioxide, total [Moles/volume] in Serum or Plasma 30 MEQ/L 22 - 30 [facility] Glucose [Mass/volume] in Serum or Plasma 82 MG/DL 65 - 110 [facility] BUN 7 MG/DL 7 - 21 [facility] Creatinine [Mass/volume] in Serum or Plasma 0.5 MG/DL 0.7 - 1.5 L [facility] BUN/CREAT 14 8 - 27 [facility] al Protein [Mass/volume] in Serum or Plasma 6.1 G/DL 6.3 - 8.2 L [facility] Albumin [Mass/volume] in Serum or Plasma 3.8 G/DL 3.9 - 5.0 L [facility] Globulin [Mass/volume] in Serum by calculation 2.3 GM/DL 2.4 - 3.2 L [facility] A/G RATIO 1.7 0.8 - 2.0 [facility] Calcium [Mass/volume] in Serum or Plasma 9.8 MG/DL 8.4 - 10.2 [facility] Bilirubin.total [Mass/volume] in Serum or Plasma <0.7 MG/DL 0.2 - 1.3 [facility] Alkaline phosphatase [Enzymatic activity/volume] in Serum or Plasma 58 U/L 38 - 126 [facility] Aspartate aminotransferase [Enzymatic activity/volume] in Serum or Plasma 13 U/L 5 - 40 [facility] Alanine aminotransferase [Enzymatic activity/volume] in Seru m or Plasma <5 U/L 7 - 56 L [facility] Anion gap 3 in Serum or Plasma 7.0 mmol/L 8.0 - 16.0 L [facility] AGE 74 yrs [facility] al NON-AA GFR >60 mL/min [facility] ital AFR AMER GFR >60 [facility] Male GFR In terprentation 20-49 [...] >32 mL/min Normal ID Date Data Source [id number] 03/03/2020 08:34:00 AM EST [facility] Name Value Range Interpretation Code Description Data [place] rce(s) Supporting Document(s) CBC W/AUTOMATED DIFF [facility] COMPLETE BLOOD COUNT Leukocytes [#/volume] in Blood by Automated count 5.0 10^3/uL 4.2 - 1 1.0 [facility] Erythrocytes [#/volume] in Blood by Automated count 4.65 10^6/uL 4. 20 - 5.40 [facility] Hemoglobin [Mass/volume] in Blood 13.8 g/dL 12.0 - 16.0 [facility] Hematocrit [Volume Fraction] of Blood by Automated count 42.2 % 3 7.0 - 47.0 [facility] Erythrocyte mean corpuscular volume [Entitic volume] by Auto mated count 90.8 fL 81.0 - 101 [facility] Erythrocyte mean corpuscular hemoglobin [Entitic mass] by Automated count 29.7 pg 27.0 - 34.0 [facility] Erythrocyte mean corpuscular hemoglobin concentration [Mass/volume] by Automated count 32.7 g/dL 31.0 - 36.0 [facility] Erythrocyte distribution width [Ratio] by Automated count 13.1 % 11.5 - 14.5 [facility] Platelets [#/volume] in Blood by Automated count 369 10^3/uL 150 - 45 0 [facility] Platelet mean volume [Entitic volume] in Blood by Automated count 11.7 fL 7.4 - 10.4 H [facility] Neutrophils/100 leukocytes in Blood by Automated count 60.9 % 37. 0 - 80.0 [facility] Lymphocytes/100 leukocytes in Blood by Manual count 26.2 % 25.0 - 40.0 [facility] Monocytes/100 leukocytes in Blood by Automated count 9.1 % 3.0 - 8.0 H [facility] Eosinophils/100 leukocytes in Blood by Automated count 2.6 % 0.0 - 7.0 [facility] Basophils/100 leukocytes in Blood by Automated count 1.0 % 0.0 - 2.5 [facility] %IG 0.2 % 0.0 - 0.0 H [facility] %NRBC 0.0 % 0.0 - 0.0 [facility] al Neutrophils [#/volume] in Blood by Automated count 3.02 10^3/uL 2.00 - 6.90 [facility] Lymphocytes [#/volume] in Blood by Automated count 1.30 10^3/uL 0.60 - 3.40 [facility] Monocytes [#/volume] in Blood by Automated count 0.45 10^3/uL 0.00 - 0.90 [facility] Eosinophils [#/volume] in Blood by Automated count 0.13 10^3/uL 0.00 - 0.70 [facility] Basophils [#/volume] in Blood by Automated count 0.05 10^3/uL 0.00 - 0.20 [facility] #IG 0.01 10^3/uL 0.00 - 0.10 [facility] #NRBC 0.00 10^3/uL 0.00 - 0.00 [facility] ospital MANUAL DIFF NOT INDICATED [facility] RBC MORPH NOT INDICATED [facility] ID Date Data Source [id number] 02/02/2020 10:15:00 AM [facility] Name Value Range Interpretation Code Description Data [place] rce(s) Supporting Document(s) Ferritin [Mass/volume] in Serum or Plasma 299.5 ng/mL 3.0 - 105 H [facility] ID Date Data Source [id number] 02/02/2020 10:01:00 AM [facility] Name Value Range Interpretation Code Description Data [place] rce(s) Supporting Document(s) Thyroxine (T4) free index in Serum or Plasma by calculation 1.28 NG/DL 0.93 - 1.70 [facility] ID Date Data Source [id number] 02/02/2020 10:01:00 AM [facility] Name Value Range Interpretation Code Description Data [place] rce(s) Supporting Document(s) Thyrotropin [Units/volume] in Serum or Plasma by Detec tion limit <= 0.05 mIU/L 3.31 uIU/mL 0.47 - 5.01 [facility] ID Date Data Source [id number] 02/02/2020 09:42:00 AM [facility] Name Value Range Interpretation Code Description Data [place] rce(s) Supporting Document(s) [facility] LIPID PAN[facility] Cholesterol [Mass/volume] in Serum or Plasma 110 MG/DL 131 - 200 L [facility] Deprecated Triglyceride [Mass/volume] in Serum or Plasma 99 MG/DL 3 5 - 160 [facility] HDL 43 MG/DL 29 - 86 [facility] al Cholesterol in LDL [Mass/volume] in Serum or Plasma by Direc t assay 53 mg/dL 65 - 175 L [facility] Cholesterol.total/Cholesterol in HDL [Mass Ratio] in Serum o r Plasma 2.6 3.2 - 4.4 L [facility] LDL/HDL 1.23 1.47 - 3.22 L [facility] ital CVE RISK CHOL/HDL LDL/HDLMEN: 1/2 AVERAGE 3.43 1.00 AVERAGE 4.97 3.55 2X AVERAGE 9.55 6.25 3X AVERAGE 23.99 7.99WOMEN: 1/2 AVERAGE 3.27 1.47 AVERAGE 4.44 3.22 2X AVERAGE 7.05 5.03 3X AVERAGE 11.04 6.14 ID Date Data Source [id number] 02/02/2020 09:42:00 AM [facility] Name Value Range Interpretation Code Description Data [place] rce(s) Supporting Document(s) Iron [Mass/volume] in Serum or Plasma 51 UG/DL 42 - 135 [facility] Iron binding capacity.unsaturated [Mass/volume] in Serum or Plasma 162 UG/DL 112 - 347 [facility] Iron binding capacity [Mass/volume] in Serum or Plasma 213 ug/dL 250 - 450 L [facility] Iron saturation [Mass Fraction] in Serum or Plasma 24 % [facility] ID Date Data Source [id number] 02/02/2020 09:41:00 AM [facility] Name Value Range Interpretation Code Description Data [place] rce(s) Supporting Document(s) COMPREHENSIVE METABOLIC PANEL [facility] COMPREHENSIVE METABOLIC PANEL Sodium [Moles/volume] in Serum or Plasma 139 mEq/L 134 - 153 [facility] Potassium [Moles/volume] in Serum or Plasma 4.3 mEq/L 3.6 - 5.0 [facility] Chloride [Moles/volume] in Serum or Plasma 103 mEq/L 98 - 107 [facility] Carbon dioxide, total [Moles/volume] in Serum or Plasma 28 MEQ/L 22 - 30 [facility] Glucose [Mass/volume] in Serum or Plasma 85 MG/DL 65 - 110 [facility] BUN 9 MG/DL 7 - 21 [facility] al Creatinine [Mass/volume] in Serum or Plasma 0.5 MG/DL 0.7 - 1.5 L [facility] BUN/CREAT 18 8 - 27 [facility] Protein [Mass/volume] in Serum or Plasma 6.0 G/DL 6.3 - 8.2 L [facility] Albumin [Mass/volume] in Serum or Plasma 3.5 G/DL 3.9 - 5.0 L [facility] Globulin [Mass/volume] in Serum by calculation 2.5 GM/DL 2.4 - 3.2 [facility] A/G RATIO 1.4 0.8 - 2.0 [facility] Calcium [Mass/volume] in Serum or Plasma 9.6 MG/DL 8.4 - 10.2 [facility] Bilirubin.total [Mass/volume] in Serum or Plasma <0.7 MG/DL 0.2 - 1.3 [facility] Alkaline phosphatase [Enzymatic activity/volume] in Serum or Plasma 63 U/L 38 - 126 [facility] Aspartate aminotransferase [Enzymatic activity/volume] in Serum or Plasma 19 U/L 5 - 40 [facility] Alanine aminotransferase [Enzymatic activity/volume] in Seru m or Plasma 6 U/L 7 - 56 L [facility] Anion gap 3 in Serum or Plasma 8.0 mmol/L 8.0 - 16.0 [facility] AGE 74 yrs [facility] al NON-AA GFR >60 mL/min [facility] ital AFR AMER GFR >60 [facility] Male GFR In terprentation 20-49 [...] >32 mL/min Normal ID Date Data Source [id number] 02/02/2020 09:40:00 AM [facility] Name Value Range Interpretation Code Description Data [place] rce(s) Supporting Document(s) Magnesium [Mass/volume] in Serum or Plasma 2.0 MG/DL 1.7 - 2.2 [facility] ID Date Data Source [id number] 02/02/2020 09:26:00 AM [facility] Name Value Range Interpretation Code Description Data [place] rce(s) Supporting Document(s) CBC NO DIFF [facility] ital COMPLETE BLOOD COUNT Leukocytes [#/volume] in Blood by Automated count 5.9 10^3/uL 4.2 - 1 1.0 [facility] Erythrocytes [#/volume] in Blood by Automated count 4.22 10^6/uL 4. 20 - 5.40 [facility] Hemoglobin [Mass/volume] in Blood 12.7 g/dL 12.0 - 16.0 [facility] Hematocrit [Volume Fraction] of Blood by Automated count 38.9 % 3 7.0 - 47.0 [facility] Erythrocyte mean corpuscular volume [Entitic volume] by Auto mated count 92.2 fL 81.0 - 101 [facility] Erythrocyte mean corpuscular hemoglobin [Entitic mass] by Automated count 30.1 pg 27.0 - 34.0 [facility] Erythrocyte mean corpuscular hemoglobin concentration [Mass/volume] by Automated count 32.6 g/dL 31.0 - 36.0 [facility] Erythrocyte distribution width [Ratio] by Automated count 14.4 % 11.5 - 14.5 [facility] Platelets [#/volume] in Blood by Automated count 342 10^3/uL 150 - 45 0 [facility] Platelet mean volume [Entitic volume] in Blood by Automated count 11.3 fL 7.4 - 10.4 H [facility] ID Date Data Source [id number] 01/10/2020 02:59:42 PM [facility] Name Value Range Interpretation Code Description Data [place] rce(s) Supporting Document(s) Discharge Summary [facility] [id number] lbm [file] ICAgICAgICAgICAgICAgICAgICAgICAgICAgICAgIC AgICAgICAgICAgICAgICAgICAgICAgICAgICAgICAgICAgICAgICAgICAgICANCiAgICAgICAgICAgIC AgICAgICAgICAgICAgICAgICAgICAgICAgICAgICAgICAgICAgICAgICAgICAgICAgICAgICAgICAgIC AgICAgICAgICAgICAgICAgICAgICAgICAgICANCiAg ICAgICAgICAgICAgICAgICAgICAgICAgICAgICAgICAgICAgICAgICAgICAgICAgICAgICAgICAgICAg ICAgICAgICAgICAgICAgICAgICAgICAgICAgICAgICAgICAgICANCiAgICAgICAgICAgICAgICAgICAg ICAgICAgICAgICAgICAgICAgICAgICAgICAgICAgIC AgICAgICAgICAgICAgICAgICAgICAgICAgICAgICAgICAgICAgICAgICAgICAgICANCiAgICAgICAgIC AgICAgICAgICAgICAgICAgICAgICAgICAgICAgICAgICAgICAgICAgICAgICAgICAgICAgICAgICAgIC AgICAgICAgICAgICAgICAgICAgICAgICAgICAgICAN CiAgICAgICAgICAgICAgICAgICAgICAgICAgICAgICAgICAgICAgICAgICAgICAgICAgICAgICAgICAg ICAgICAgICAgICAgICAgICAgICAgICAgICAgICAgICAgICAgICAgICANCiAgICAgICAgICAgICAgICAg ICAgICAgICAgICAgICAgICAgICAgICAgICAgICAgIC AgICAgICAgICAgICAgICAgICAgICAgICAgICAgICAgICAgICAgICAgICAgICAgICAgICANCiAgICAgIC AgICAgICAgICAgICAgICAgICAgICAgICAgICAgICAgICAgICAgICAgICAgICAgICAgICAgICAgICAgIC AgICAgICAgICAgICAgICAgICAgICAgICAgICAgICAg ICANCiAgICAgICAgICAgICAgICAgICAgICAgICAgICAgICAgICAgICAgICAgICAgICAgICAgICAgICAg ICAgICAgICAgICAgICAgICAgICAgICAgICAgICAgICAgICAgICAgICAgICANCiAgICAgICAgICAgICAg ICAgICAgICAgICAgICAgICAgICAgICAgICAgICAgIC AgICAgICAgICAgICAgICAgICAgICAgICAgICAgICAgICAgICAgICAgICAgICAgICAgICAgICANCjw/eH EiL2wwrSSfclE8M2wtHg8HOk2IAO5cr4VjCUXbNMppdaVdKcjYXyHiQNLcJobOXsa3EXsoCK0TtWYyG1 EfZ6FtKWbsUS8CNHHlGOGlzIRqHXXdEUUmErD6MIMh PBmrJD4IqHBkINjsVUHuPMVeQkAjNCFxAVGgUTLwSDZcOKPGRNWrZMQjRbNdEXxoOM0Lf9NlkXO4HXx+ Zs8JFX2gp8VdTHvbGVCpPO2kzn2ABGpFWeStS8OpuxN3VCXiTIEbZx6QLCOcWPOimMChVwQpEFYHLgCo T5XqwB84QBPKOb8+VPatmqTnVeqTFzEkSJZju1XgSH v4MT3CKTTbLGi9yDOjFRbgY7gtfcjtIOQ3mJ6hjohlAoquZ0WcJX9jCGNqZVDbFR1TOQR6RCOqNmHuOw TmLjAzFOK1TEVoRC9bLYpgNA3MYJO0PSvwSQSlTLRoP1aPHjTpBZNyJeEqqMkjDD5UPpQkF6BqxrJdnQ AzMSAwIFINCj4+NHpplxMqFesWEgWnZJJwl4RsOOw3 YI2DFUFsEPqfSR9TNCQryM6zDJlpUK8ERcYhZQTqGVFXWbXhU83bcEGyCVi7X2JhUhWnOJFhOsxzGXJm PDwvTmFtZXMgWyBdDQogID4+ID4+ABsxNN6BYDczxdTfFRAmDx5UQFKwWDHsKS0iLQYvPGTsY3N5fXbh ZRJZUcJzC3qknyigBR2iUMNcP787xHcmmwDdPNIjCI YuOi7YWUHoEPO7PBKdvIQsDtKcEGEDIJyfLP7AtZUaTHU7rJ1lGWtpNQRxZTIfL8yYDiTtxBphAQ59aM wgbnVsbCBdDQo+Nx8BWL4if3TuTFn6jqUzJAmlJVG0HKylZWJiCDGzULRiOEQ9FAJ2PDLFCfVhKAWlLM LdOYfxZCWsMRHgxm3BZXXzGJWdJfN4RLOpRNQoECIo FQwvVGFsYNR4SNQbDJMbKTTeBL6BIjJhGGAbSWEdDEkgIKMhQZFngv3BYRFgPYApHvR4GnMuJTFaSELs RQxgDGPdCGInLIX3QUAtHBWaJQ9DLjZcVRGzFEO9AlCsIAJiXZYgkf1CFBFeFUVqIuC7DaRpCUSdIWUe RAfqVRCjKEXcZTY4VBFpIQLhQI5QDhArOLJoQUS7DY jwPYIqXHHmdj8FTZZtUXMbWeO1EXPwUUSrHJIwEFpmEQGpAGS8BpMzLLIqBAJbRQ1MNrJiBECoZHghPJ YxKQErSBCcrn5VCFHpEDAhOPC1FiErMCOiGUObNQspFUTqHHVwMtIbKWBbWXRmJB5QHtQzQYCcEyM8XQ onIMJqZLDaft2PSQCvVMTcPWAeVdAsBCPsBLGpJNiy XZRlJZKcKKifXVGnZRRlAI7RYpGzFTSyJkW0NJLbOPSqDFGhdy5QAAWbTOPuBOa8LHDzDDMrAIRxEZnf GJRdGWXrFZAeFZByRJQzTI4AHsRbDYRsOtHlMOOhJYMhUJUdeo6UAVNkNXCcJiJwIRXwMEGrGADkWWet JQLmOSQ6LkccAOLzPIExKI4VYzTmAHXhQwI3NRoaGM WtHRZbdn5ZLANaFENfQLS0BOLiTSOiGLJxFVpkWQLwURY2BvYyHVSaLUIoIB4DKiHgJTFcQbA6VrQjQO QhJEXbej3VQDFgVZBpGfPhKHKgCMLbCXBwTBfqEDOyKPL8WCfsHOXmOYPxQX7VKpXwALZqQii3PTxkUK MyQLMfjw2XMHXmCMDoXUXeCPVhEVLpXPSoNVzpGBKg GPJ9KJN5UNNsPNXdBU1AIbYjTBtfZLCBKmc7YPzrF4r4NLClUZ4SR2Avn8SrBnVpFDBHOQxkQJ2ujeQi EZVpHm1YL1lWYhgtCPGeRwU5NbetOXI7SAUrE5P2WDB1GHL5IrDwZmBqQB7pTEZlZsO8Nqq4NTEnIhI4 TmSyPia8KKO7XjrzYdFuEZG1FcXrBG1RFr1KKqR8QYA7tDGuTu2OJai4KHWLFxHzMI1OPIh= ID Date Data Source [id number] [facility] Interpretation Code Description Data [place] rce(s) Supporting Document(s) Glucose [Mass/volume] in Capillary blood by Glucometer 141 mg/dL 70- 140 H [facility] ID Date Data Source [id number] 01/09/2020 08:51:25 AM [facility] Value Range Interpretation Code Description Data [place] rce(s) Supporting Document(s) Glucose [Mass/volume] in Capillary blood by Glucometer 141 mg/dL 70- 140 H [facility] ID Date Data Source [id number] 01/09/2020 06:26:06 AM [facility] Value Range Interpretation Code Description Data [place] rce(s) Supporting Document(s) Bicarbonate [Moles/volume] in Serum 25 mmol/L 22-29 [facility] Chloride [Moles/volume] in Serum or Plasma 104 mmol/L 98-107 [facility] Creatinine [Mass/volume] in Serum or Plasma 0.52 mg/dL 0.50-0.90 [facility] Glucose [Mass/volume] in Serum or Plasma 130 mg/dL 70-140 [facility] Potassium [Moles/volume] in Serum or Plasma 4.4 mmol/L 3.4-5.1 [facility] Sodium [Moles/volume] in Serum or Plasma 138 mmol/L 136-145 [facility] Urea nitrogen [Mass/volume] in Serum or Plasma 17 mg/dL 8-23 [facility] Anion gap 3 in Serum or Plasma 9 mmol/L 8-15 [facility] Osmolality of Serum or Plasma by calculation 289 mosm/kg 275-300 [facility] Creatinine/Urea nitrogen [Mass Ratio] in Serum or Plasma 33 [facility] Calcium [Mass/volume] in Serum or Plasma 8.7 mg/dL 8.8-10.2 L [facility] Glomerular filtration rate/1.73 sq M pre dicted among non-blacks [Volume Rate/Area] in Serum or Plasma by Creatinine-based formula (MDRD) >6 0 [facility] Glomerular filtration rate/1.73 sq M pre dicted among blacks [Volume Rate/Area] in Serum or Plasma by Creatinine-based formula (MDRD) >60 [facility] ID Date Data Source [id number] 01/09/2020 01:37:01 AM EDT [facility] Name Value Range Interpretation Code Description Data [place] rce(s) Supporting Document(s) Leukocytes [#/volume] in Blood by Automated count 10.2 10*3/uL 4-10 H [facility] Erythrocytes [#/volume] in Blood by Automated count 3.65 10*6/uL 4.1- 5.3 L [facility] Hemoglobin [Mass/volume] in Blood 10.9 g/dL 11.5-15.5 [facility] Hematocrit [Volume Fraction] of Blood by Automated count 33.3 % 3 6-45 L [facility] Erythrocyte mean corpuscular volume [Entitic volume] by Auto mated count 91.3 fL 80-96 [facility] Erythrocyte mean corpuscular hemoglobin [Entitic mass] by Automated count 29.8 pg 27-33 [facility] Erythrocyte mean corpuscular hemoglobin concentration [Mass/volume] by Automated count 32.6 g/dL 32.0-36.0 [facility] width [Ratio] by Automated count 16.2 % 11.5-14.5 H [facility] Platelets [#/volume] in Blood by Automated count 392 10*3/uL 150-400 [facility] Differential cell count method - Blood [facility] Neutrophils/100 leukocytes in Blood by Automated count 78 % [facility] Lymphocytes/100 leukocytes in Blood by Automated count 10 % [facility] Monocytes/100 leukocytes in Blood by Automated count 8 % [facility] Eosinophils/100 leukocytes in Blood by Automated count 2 % [facility] Basophils/100 leukocytes in Blood by Automated count 2 % [facility] Neutrophils [#/volume] in Blood by Automated count 8.04 10*3/uL 1.8-7 .0 H [facility] Lymphocytes [#/volume] in Blood by Automated count 1.00 10*3/uL 1.2-4 .0 L [facility] Monocytes [#/volume] in Blood by Automated count 0.78 10*3/uL 0-0.8 [facility] Eosinophils [#/volume] in Blood by Automated count 0.21 10*3/uL 0-0.5 [facility] Basophils [#/volume] in Blood by Automated count 0.15 10*3/uL 0-0.2 [facility] Nucleated erythrocytes/100 leukocytes [Ratio] in Blood by Automated count 0 /100{WBCs} 0-0 [facility] ID Date Data Source [id number] 01/09/2020 01:47:26 AM [facility] Name Value Range Interpretation Code Description Data [place] rce(s) Supporting Document(s) Magnesium [Mass/volume] in Serum or Plasma 2.1 mg/dL 1.6-2.4 [facility] ID Date Data Source [id number] 01/09/2020 01:47:26 AM [facility] Name Value Range Interpretation Code Description Data [place] rce(s) Supporting Document(s) Phosphate [Mass/volume] in Serum or Plasma 2.7 mg/dL 2.5-4.5 [facility] ID Date Data Source [id number] 01/08/2020 09:43:33 PM [facility] Name Value Range Interpretation Code Description Data [place] rce(s) Supporting Document(s) Glucose [Mass/volume] in Capillary blood by Glucometer 152 mg/dL 70- 140 H [facility] ID Date Data Source [id number] 01/08/2020 06:50:49 PM [facility] IR SINOGRAMFINAL RESULTInterpreted by:YESICA Tsai: Anterior [...] rce(s) Supporting Document(s) ID Date Data Source [id number] 01/08/2020 04:01:13 PM [facility] Value Range Interpretation Code Description Data [place] rce(s) Supporting Document(s) Glucose [Mass/volume] in Capillary blood by Glucometer 108 mg/dL 70- 140 [facility] ID Date Data Source [id number] 01/08/2020 08:46:16 AM [facility] Value Range Interpretation Code Description Data [place] rce(s) Supporting Document(s) Glucose [Mass/volume] in Capillary blood by Glucometer 142 mg/dL 70- 140 H [facility] ID Date Data Source [id number] 01/08/2020 06:16:13 AM [facility] Value Range Interpretation Code Description Data [place] rce(s) Supporting Document(s) Leukocytes [#/volume] in Blood by Automated count 11.8 10*3/uL 4-10 H [facility] Erythrocytes [#/volume] in Blood by Automated count 3.73 10*6/uL 4.1- 5.3 L [facility] Hemoglobin [Mass/volume] in Blood 10.9 g/dL 11.5-15.5 [facility] Hematocrit [Volume Fraction] of Blood by Automated count 33.7 % 3 6-45 L [facility] Erythrocyte mean corpuscular volume [Entitic volume] by Auto mated count 90.3 fL 80-96 [facility] Erythrocyte mean corpuscular hemoglobin [Entitic mass] by Automated count 29.2 pg 27-33 [facility] Erythrocyte mean corpuscular hemoglobin concentration [Mass/volume] by Automated count 32.3 g/dL 32.0-36.0 [facility] E[facility] distribution width [Ratio] by Automated count 16.5 % 11.5-14.5 H [facility] Platelets [#/volume] in Blood by Automated count 419 10*3/uL 150-400 H [facility] Differential cell count method - Blood [facility] Neutrophils/100 leukocytes in Blood by Automated count 80 % [facility] Lymphocytes/100 leukocytes in Blood by Automated count 10 % [facility] Monocytes/100 leukocytes in Blood by Automated count 7 % [facility] Eosinophils/100 leukocytes in Blood by Automated count 2 % [facility] Basophils/100 leukocytes in Blood by Automated count 1 % [facility] Neutrophils [#/volume] in Blood by Automated count 9.46 10*3/uL 1.8-7 .0 H [facility] Lymphocytes [#/volume] in Blood by Automated count 1.12 10*3/uL 1.2-4 .0 L [facility] Monocytes [#/volume] in Blood by Automated count 0.81 10*3/uL 0-0.8 H [facility] Eosinophils [#/volume] in Blood by Automated count 0.23 10*3/uL 0-0.5 [facility] Basophils [#/volume] in Blood by Automated count 0.14 10*3/uL 0-0.2 [facility] Nucleated erythrocytes/100 leukocytes [Ratio] in Blood by Automated count 0 /100{WBCs} 0-0 [facility] ID Date Data Source [id number] 01/08/2020 06:39:59 AM EDT [facility] Name Value Range Interpretation Code Description Data [place] rce(s) Supporting Document(s) Bicarbonate [Moles/volume] in Serum 27 mmol/L 22-29 [facility] Chloride [Moles/volume] in Serum or Plasma 99 mmol/L 98-107 [facility] Creatinine [Mass/volume] in Serum or Plasma 0.50 mg/dL 0.50-0.90 [facility] Glucose [Mass/volume] in Serum or Plasma 118 mg/dL 70-140 [facility] Potassium [Moles/volume] in Serum or Plasma 4.6 mmol/L 3.4-5.1 [facility] Sodium [Moles/volume] in Serum or Plasma 133 mmol/L 136-145 L [facility] Urea nitrogen [Mass/volume] in Serum or Plasma 15 mg/dL 8-23 [facility] Anion gap 3 in Serum or Plasma 7 mmol/L 8-15 L [facility] Osmolality of Serum or Plasma by calculation 278 mosm/kg 275-300 [facility] Creatinine/Urea nitrogen [Mass Ratio] in Serum or Plasma 30 [facility] Calcium [Mass/volume] in Serum or Plasma 7.8 mg/dL 8.8-10.2 L [facility] Glomerular filtration rate/1.73 sq M pre dicted among non-blacks [Volume Rate/Area] in Serum or Plasma by Creatinine-based formula (MDRD) >6 0 [facility] Glomerular filtration rate/1.73 sq M pre dicted among blacks [Volume Rate/Area] in Serum or Plasma by Creatinine-based formula (MDRD) >60 [facility] ID Date Data Source [id number] 01/08/2020 06:39:59 AM EDT [facility] Value Range Interpretation Code Description Data [place] rce(s) Supporting Document(s) Magnesium [Mass/volume] in Serum or Plasma 2.1 mg/dL 1.6-2.4 [facility] ID Date Data Source [id number] 01/08/2020 06:39:59 AM EDT [facility] Value Range Interpretation Code Description Data [place] rce(s) Supporting Document(s) Phosphate [Mass/volume] in Serum or Plasma 2.9 mg/dL 2.5-4.5 [facility] ID Date Data Source [id number] 01/08/2020 12:44:21 AM EDT [facility] Value Range Interpretation Code Description Data [place] rce(s) Supporting Document(s) Glucose [Mass/volume] in Capillary blood by Glucometer 130 mg/dL 70- 140 [facility] ID Date Data Source [id number] 01/07/2020 05:11:18 PM [facility] Name Value Range Interpretation Code Description Data [place] rce(s) Supporting Document(s) Glucose [Mass/volume] in Capillary blood by Glucometer 120 mg/dL 70- 140 [facility] ID Date Data Source [id number] 01/07/2020 09:02:24 AM [facility] Name Value Range Interpretation Code Description Data [place] rce(s) Supporting Document(s) Glucose [Mass/volume] in Capillary blood by Glucometer 131 mg/dL 70- 140 [facility] ID Date Data Source [id number] 01/07/2020 04:48:50 AM [facility] XR ABDOMEN AP ABD SUPINE ONLY [id number] RESULTInterpreted by:BEHZAD NunesROCEDURE INFORMATION: Exam: XR Abdomen, [...] DX XR ABDOMEN AP ABD SUPINE ONLY [id number] PORTABLE 01/04/2020 3:46 PM FINDINGS: Tubes, catheters [...] rce(s) Supporting Document(s) ID Date Data Source [id number] 01/07/2020 04:54:27 AM EDT [facility] Name Value Range Interpretation Code Description Data [place] rce(s) Supporting Document(s) Leukocytes [#/volume] in Blood by Automated count 11.9 10*3/uL 4-10 H [facility] Erythrocytes [#/volume] in Blood by Automated count 3.72 10*6/uL 4.1- 5.3 L [facility] Hemoglobin [Mass/volume] in Blood 11.0 g/dL 11.5-15.5 L [facility] Hematocrit [Volume Fraction] of Blood by Automated count 33.8 % 3 6-45 L [facility] Erythrocyte mean corpuscular volume [Entitic volume] by Auto mated count 90.8 fL 80-96 [facility] Erythrocyte mean corpuscular hemoglobin [Entitic mass] by Automated count 29.4 pg 27-33 [facility] Erythrocyte mean corpuscular hemoglobin concentration [Mass/volume] by Automated count 32.4 g/dL 32.0-36.0 [facility] E[facility] distribution width [Ratio] by Automated count 16.4 % 11.5-14.5 H [facility] Platelets [#/volume] in Blood by Automated count 447 10*3/uL 150-400 H [facility] Differential cell count method - Blood [facility] Neutrophils/100 leukocytes in Blood by Automated count 81 % [facility] Lymphocytes/100 leukocytes in Blood by Automated count 10 % [facility] Monocytes/100 leukocytes in Blood by Automated count 6 % [facility] Eosinophils/100 leukocytes in Blood by Automated count 2 % [facility] Basophils/100 leukocytes in Blood by Automated count 1 % [facility] Neutrophils [#/volume] in Blood by Automated count 9.76 10*3/uL 1.8-7 .0 H [facility] Lymphocytes [#/volume] in Blood by Automated count 1.15 10*3/uL 1.2-4 .0 L [facility] Monocytes [#/volume] in Blood by Automated count 0.72 10*3/uL 0-0.8 [facility] Eosinophils [#/volume] in Blood by Automated count 0.19 10*3/uL 0-0.5 [facility] Basophils [#/volume] in Blood by Automated count 0.12 10*3/uL 0-0.2 [facility] Nucleated erythrocytes/100 leukocytes [Ratio] in Blood by Automated count 0 /100{WBCs} 0-0 [facility] ID Date Data Source [id number] 01/07/2020 05:27:36 AM [facility] Name Value Range Interpretation Code Description Data [place] rce(s) Supporting Document(s) Magnesium [Mass/volume] in Serum or Plasma 2.4 mg/dL 1.6-2.4 [facility] ID Date Data Source [id number] 01/07/2020 05:27:36 AM [facility] Value Range Interpretation Code Description Data [place] rce(s) Supporting Document(s) Bicarbonate [Moles/volume] in Serum 28 mmol/L 22-29 [facility] Chloride [Moles/volume] in Serum or Plasma 100 mmol/L 98-107 [facility] Creatinine [Mass/volume] in Serum or Plasma 0.60 mg/dL 0.50-0.90 [facility] Glucose [Mass/volume] in Serum or Plasma 107 mg/dL 70-140 [facility] Potassium [Moles/volume] in Serum or Plasma 4.8 mmol/L 3.4-5.1 [facility] Sodium [Moles/volume] in Serum or Plasma 134 mmol/L 136-145 L [facility] Urea nitrogen [Mass/volume] in Serum or Plasma 15 mg/dL 8-23 [facility] Anion gap 3 in Serum or Plasma 7 mmol/L 8-15 L [facility] Osmolality of Serum or Plasma by calculation 279 mosm/kg 275-300 [facility] Creatinine/Urea nitrogen [Mass Ratio] in Serum or Plasma 24 [facility] Calcium [Mass/volume] in Serum or Plasma 8.9 mg/dL 8.8-10.2 [facility] Glomerular filtration rate/1.73 sq M pre dicted among non-blacks [Volume Rate/Area] in Serum or Plasma by Creatinine-based formula (MDRD) 89 mL/min/1.73m2 >60 [facility] Glomerular filtration rate/1.73 sq M pre dicted among blacks [Volume Rate/Area] in Serum or Plasma by Creatinine-based formula (MDRD) >60 [facility] ID Date Data Source [id number] 01/07/2020 05:27:36 AM EDT [facility] Name Value Range Interpretation Code Description Data [place] rce(s) Supporting Document(s) Phosphate [Mass/volume] in Serum or Plasma 3.9 mg/dL 2.5-4.5 [facility] ID Date Data Source [id number] 01/07/2020 12:02:24 AM EDT [facility] Value Range Interpretation Code Description Data [place] rce(s) Supporting Document(s) Glucose [Mass/volume] in Capillary blood by Glucometer 125 mg/dL 70- 140 [facility] ID Date Data Source [id number] 01/06/2020 03:58:36 PM EDT [facility] Value Range Interpretation Code Description Data [place] rce(s) Supporting Document(s) Glucose [Mass/volume] in Capillary blood by Glucometer 130 mg/dL 70- 140 [facility] ID Date Data Source [id number] 01/06/2020 01:00:34 PM EDT [facility] Value Range Interpretation Code Description Data [place] rce(s) Supporting Document(s) [facility] NERJLq4hTzYVUoTh63/QBTmoLPGic8CwSRtkLVe6DLymCJBeY0HpCKX2mF2tBCQ9LMgFHuHlYsIfUGY4 lbm [file] NILAM+AKluLCpiqTx1oYHjERTzRi1DZPMmHYOqRMUhLZGrCRSxAFYcPQWqRBCgXNCmZYMtOHBzKYVvEXGr ICAgICAgICAgICAgICAgICAgICAgICAgICAgICAgIC PnFQWpAXWtOMHuGYRhTGTtAXNqYPCxWEFpMYTbKZ4WIWXbYMFvONHqZICpPRQgWJLgWDMfVLPqOVBwLR AgICAgICAgICAgICAgICAgICAgICAgICAgICAgICAgICAgICAgICAgICAgICAgICAgICAgICAgICAgIC AqXEIbVKZwBQSnKX0WAKEjVOGqQUYfOHLwWBYdCPRr ICAgICAgICAgICAgICAgICAgICAgICAgICAgICAgICAgICAgICAgICAgICAgICAgICAgICAgICAgICAg ILKgPVTbUNTqGUDxOHFwYTLhGQZbBW1TZILhAMWlNNAgWHJvLUQmQPZuKLXpHUSiAPTrILNuEASmESAc ICAgICAgICAgICAgICAgICAgICAgICAgICAgICAgIC TeCVZbNNEjYFXfZXCwYXPiVQKzDWSwPCWvCHUqHGVpXQ0AXQCoMZWvRWUyYZSoCGEfJWXhRTBjKZYrBN AgICAgICAgICAgICAgICAgICAgICAgICAgICAgICAgICAgICAgICAgICAgICAgICAgICAgICAgICAgIC QgVXDhCJKqXNMyFSMzFZ0PAPKzGUAtMFUoDAJpZNNh ICAgICAgICAgICAgICAgICAgICAgICAgICAgICAgICAgICAgICAgICAgICAgICAgICAgICAgICAgICAg RUKzTYWnCAGmSSQhTZVrEEXsKYXrAJVzQM9SNTKgVUSfNUFyEHEpSIFuYPVxTGOrETEfVGXkNZRoJOEr ICAgICAgICAgICAgICAgICAgICAgICAgICAgICAgIC IpLBRpJQYcJNWsSTGtSCUlWDPuOJVdEVJqSSXuEEDbICHgYZ7VFAQcAPCvUOVgLXOhNYUdYDVdZGAcLZ AgICAgICAgICAgICAgICAgICAgICAgICAgICAgICAgICAgICAgICAgICAgICAgICAgICAgICAgICAgIC RvJMBpMEUcBZFsALNfAEBwIC0HOKOjJCUaEWBvFMPs ICAgICAgICAgICAgICAgICAgICAgICAgICAgICAgICAgICAgICAgICAgICAgICAgICAgICAgICAgICAg SNLmPZViZHCrBDItWNZaNUXfMACpWREbIHWcIN0YQETtFPQxOBXeTPIeTPMtFRPsPIFwZJJgZZCbNKDt ICAgICAgICAgICAgICAgICAgICAgICAgICAgICAgIC OpHWBiRAGpRCQcSJNgVZWpMEUiQDXhZCMaTZJuMSMwJECjRRJwTJ1PFB55lQUpf0L5DYYuFY5eyfx/Pg 6QVXrymqSqoQRwXE2BRaGjTU9fzw3DYyIyQC5igr6VNMhJPzDnG6E0oPPgKSFxBOJHVyTbK35yEPshMj 55FNmbYOVqZfAuRNz8Iq3SBjKvG2sfMALbNgQ7RJLs FqW9UCGzVlI4PGTtArRgDDxrMR7Gs9IniOMsQUn+Td8TRL7dh6UhVVdmWcTaLH1nmq4SZXtWTuCkK9Df ikB0KXI1XJZtQp4KDDBtHJUerSIfOdHjFDKVBtPiS2BqgV68XZYLAy6+PWsuyvIeZskTWsP1QKXzp0Yf GDm4YJ8PKPRkRXs1wNXnW69uv7OgmJOuXhxxOBnpib WzKIFJJNq0sKO8FDJQBIParPXeTT5sLO0hKWEcIXBvEyUjEOFYFD7NUGArDZJnkJTuRYPxPTWTVL0DMK giGSL6KERcrlBbgAYjHZgcJE4FDYPlasHnQgVpAERVBMy+Xf2DAU9ku4ZpEYgmMSAvLR8afz4XOMrIAc JvZ5C0fZVhH9A3WSywXk7WARCmFCYiVqPdREEEFSip KC2KVO4idpC3UT3VlXJmOFWsZZRhuZUeSJi2N86xiEAuLCprHC2TJYN+Scarlett+Sw4NZHPyLNTbAUKnMoKf HEKSDaUrY1MwV9TTs9IdO9FlNG60aMcbaaOiKWzgLL8NCU7bVEKhKUVZAZ6ImQQmtM7nrnOyByJpBILH VeOvV97czSDtITUoCTW6ZDYsIs6BXGPhQ2BfhhCggP xdghVcHEYzYWWFKA7FEQabufLkxIRvoNnkHS50bFjbKA6AMt1HUlSuPN6qgr9IcWSzDj9CKPGgXV0PKI LcCQLhJHVmASX2FZFlPuUfEHmnZXLnUAUqVGA1NMKnEQShTM4OFrPxKFQzYiQ7YsSlUICiBYCbkl3QJF EcXZViCkV3MMBxXZGqNZRyPIziISJxXMDdTGL8UBAh OQKnWF9FEzFtHUCiMFF5TPdhLQDcLMZfif0ZJHZoVSVzRbgwPLMhIJNzBVPqSDvvCXZmJJL6XvzsCMKd OQHeLB7RJlSvDEYgANX1AvrtYTMwVBOjbf3MVOZeQDBsWXUkKILcPDUnTNXpGPshCFCkSFL9SFDnQVGb ZSYiHX5MMdCzKZWrHWa5DUGbLBMbORRsgy5BNZEzRI AxVHA5XDWjBOFeHBHzFWsiRFTtAEM7JQcoXKAxOFThJG8VYqQnIXRkOAZ4ZPKrSSAhJFUujg3THYSqVC IgQPO8JxEoMFAlDQQhBEemAKTwYSYiXaKzSJQhJWZdEG4RRmEjZUYfLaZ4BSOdZCXaBXJvjr7VMOAqSK AyMjkzNCAwMDAwMCBuDQowMDAwMDIzMTQzIDAwMDAw HL1YRiZyHEScIvTxUMYyWEHrLVWmmh6YABSwIYVySmNdBHMdMHQcIQDyDGxpHIIzRCH1PLnvYAHpNMQc GD6GNoDjWBWpZpS7UdVrWOExEUHebo8VGQXaGNLxEAkaLCSaTBLyVXKzUMyaVHXwDTF2ZyU3DWBmDVHg LF8DRzCkLKZlVjD5PGEpSMHlYOHyex3TVDVaKEUzHl o6WtGjAOYrGCKvHRywGRWwWLU3GROkQUIoKQKcSC7PRaRkRUsdZDQSXaq4OKpaU4n0QFUvUO6XQ6Jpa3 EeVlbzNSQONGozXJ5zgxSdAOHkLn8KJ2kBGwmeIYJ9DKa9GRn3GUY6GaL9NUQsCWZzSeh4HVEwYxAcJB 8aINVcJbSdOwn5UNf7BQNkOxZ5X2W5LQUjRQN0BUAl WHVzOkTpEJ1XRw7MFxR0OSF8wYEyQn4GXcvuOyLMEpTtGZ7AEBi= ID Date Data Source [id number] 01/06/2020 07:49:56 AM EDT [facility] Name Value Range Interpretation Code Description Data [place] rce(s) Supporting Document(s) Glucose [Mass/volume] in Capillary blood by Glucometer 125 mg/dL 70- 140 [facility] [facility] Date Data Source [id number] 01/06/2020 03:42:29 AM EDT [facility] Name Value Range Interpretation Code Description Data [place] rce(s) Supporting Document(s) Leukocytes [#/volume] in Blood by Automated count 13.1 10*3/uL 4-10 H [facility] Erythrocytes [#/volume] in Blood by Automated count 3.59 10*6/uL 4.1- 5.3 L [facility] Hemoglobin [Mass/volume] in Blood 10.7 g/dL 11.5-15.5 L [facility] Hematocrit [Volume Fraction] of Blood by Automated count 32.9 % 3 6-45 L [facility] Erythrocyte mean corpuscular volume [Entitic volume] by Auto mated count 91.4 fL 80-96 [facility] Erythrocyte mean corpuscular hemoglobin [Entitic mass] by Automated count 29.7 pg 27-33 [facility] Erythrocyte mean corpuscular hemoglobin concentration [Mass/volume] by Automated count 32.5 g/dL 32.0-36.0 [facility] distribution width [Ratio] by Automated count 16.4 % 11.5-14.5 [facility] Platelets [#/volume] in Blood by Automated count 455 10*3/uL 150-400 H [facility] Differential cell count method - Blood [facility] Neutrophils/100 leukocytes in Blood by Automated count 86 % [facility] Lymphocytes/100 leukocytes in Blood by Automated count 7 % [facility] Monocytes/100 leukocytes in Blood by Automated count 5 % [facility] Eosinophils/100 leukocytes in Blood by Automated count 1 % [facility] Basophils/100 leukocytes in Blood by Automated count 1 % [facility] Neutrophils [#/volume] in Blood by Automated count 11.41 10*3/uL 1.8- 7.0 H [facility] Lymphocytes [#/volume] in Blood by Automated count 0.85 10*3/uL 1.2-4 .0 L [facility] Monocytes [#/volume] in Blood by Automated count 0.64 10*3/uL 0-0.8 [facility] Eosinophils [#/volume] in Blood by Automated count 0.12 10*3/uL 0-0.5 [facility] Basophils [#/volume] in Blood by Automated count 0.07 10*3/uL 0-0.2 [facility] Nucleated erythrocytes/100 leukocytes [Ratio] in Blood by Automated count 0 /100{WBCs} 0-0 [facility] ID Date Data Source [id number] 01/06/2020 04:04:16 AM [facility] Name Value Range Interpretation Code Description Data [place] rce(s) Supporting Document(s) Bicarbonate [Moles/volume] in Serum 28 mmol/L 22-29 [facility] Chloride [Moles/volume] in Serum or Plasma 102 mmol/L 98-107 [facility] Creatinine [Mass/volume] in Serum or Plasma 0.46 mg/dL 0.50-0.90 L [facility] Glucose [Mass/volume] in Serum or Plasma 97 mg/dL 70-140 [facility] Potassium [Moles/volume] in Serum or Plasma 4.8 mmol/L 3.4-5.1 [facility] Sodium [Moles/volume] in Serum or Plasma 136 mmol/L 136-145 [facility] Urea nitrogen [Mass/volume] in Serum or Plasma 13 mg/dL 8-23 [facility] Anion gap 3 in Serum or Plasma 6 mmol/L 8-15 L [facility] Osmolality of Serum or Plasma by calculation 282 mosm/kg 275-300 [facility] Creatinine/Urea nitrogen [Mass Ratio] in Serum or Plasma 28 [facility] Calcium [Mass/volume] in Serum or Plasma 8.2 mg/dL 8.8-10.2 L [facility] Glomerular filtration rate/1.73 sq M pre dicted among non-blacks [Volume Rate/Area] in Serum or Plasma by Creatinine-based formula (MDRD) >6 0 [facility] Glomerular filtration rate/1.73 sq M pre dicted among blacks [Volume Rate/Area] in Serum or Plasma by Creatinine-based formula (MDRD) >60 [facility] ID Date Data Source [id number] 01/06/2020 04:04:16 AM [facility] Name Value Range Interpretation Code Description Data [place] rce(s) Supporting Document(s) Phosphate [Mass/volume] in Serum or Plasma 3.2 mg/dL 2.5-4.5 [facility] ID Date Data Source [id number] 01/06/2020 04:04:16 AM [facility] Name Value Range Interpretation Code Description Data [place] rce(s) Supporting Document(s) Magnesium [Mass/volume] in Serum or Plasma 2.3 mg/dL 1.6-2.4 [facility] ID Date Data Source [id number] 01/06/2020 01:09:20 AM EDT [facility] Name Value Range Interpretation Code Description Data [place] rce(s) Supporting Document(s) Glucose [Mass/volume] in Capillary blood by Glucometer 114 mg/dL 70- 140 [facility] ID Date Data Source [id number] 01/05/2020 04:00:58 PM EDT [facility] Name Value Range Interpretation Code Description Data [place] rce(s) Supporting Document(s) Glucose [Mass/volume] in Capillary blood by Glucometer 124 mg/dL 70- 140 [facility] ID Date Data Source [id number] 01/05/2020 12:38:21 PM EDT [facility] Value Range Interpretation Code Description Data [place] rce(s) Supporting Document(s) [facility] [id number] m [file] DQogICAgICAgICAgICAgICAgICAgICAgICAgICAgICAgICAgICAgICAgICAgICAgICAgICAgICAgICAg ICAgICAgICAgICAgICAgICAgICAgICAgICAgICAgICAgICAgICAgICAgDQogICAgICAgICAgICAgICAg ICAgICAgICAgICAgICAgICAgICAgICAgICAgICAgIC AgICAgICAgICAgICAgICAgICAgICAgICAgICAgICAgICAgICAgICAgICAgICAgICAgICAgDQogICAgIC AgICAgICAgICAgICAgICAgICAgICAgICAgICAgICAgICAgICAgICAgICAgICAgICAgICAgICAgICAgIC AgICAgICAgICAgICAgICAgICAgICAgICAgICAgICAg ICAgDQogICAgICAgICAgICAgICAgICAgICAgICAgICAgICAgICAgICAgICAgICAgICAgICAgICAgICAg ICAgICAgICAgICAgICAgICAgICAgICAgICAgICAgICAgICAgICAgICAgICAgDQogICAgICAgICAgICAg ICAgICAgICAgICAgICAgICAgICAgICAgICAgICAgIC AgICAgICAgICAgICAgICAgICAgICAgICAgICAgICAgICAgICAgICAgICAgICAgICAgICAgICAgDQogIC AgICAgICAgICAgICAgICAgICAgICAgICAgICAgICAgICAgICAgICAgICAgICAgICAgICAgICAgICAgIC AgICAgICAgICAgICAgICAgICAgICAgICAgICAgICAg ICAgICAgDQogICAgICAgICAgICAgICAgICAgICAgICAgICAgICAgICAgICAgICAgICAgICAgICAgICAg ICAgICAgICAgICAgICAgICAgICAgICAgICAgICAgICAgICAgICAgICAgICAgICAgDQogICAgICAgICAg ICAgICAgICAgICAgICAgICAgICAgICAgICAgICAgIC AgICAgICAgICAgICAgICAgICAgICAgICAgICAgICAgICAgICAgICAgICAgICAgICAgICAgICAgICAgDQ ogICAgICAgICAgICAgICAgICAgICAgICAgICAgICAgICAgICAgICAgICAgICAgICAgICAgICAgICAgIC AgICAgICAgICAgICAgICAgICAgICAgICAgICAgICAg ICAgICAgICAgDQogICAgICAgICAgICAgICAgICAgICAgICAgICAgICAgICAgICAgICAgICAgICAgICAg GRGlYSJhWZRxOMXlPJWvRTBqHYJtPPAgZDFbVEJbNZOuECDyCKZiAGNyAWAfAMLjECTqKYe8Y5aiMQQf SWHqBZ1tBRf7Iy8+ZMqHVjZrFQE6dgPnrV4ZLR6de4 SxDJedSZRzl1SrFUy9UC1FIQXqOIpdBK1DKYzopb9MNOAlWMWzqCJCh0hkNcEtSRP3NPBkOxxzKB9UUT RsK4jtltAgABSgOWMIVFitQVWGRQtjFGEVTVCbLQCmIvRoWcEyOXIdYHToIMOFHCX3FQVuNeFrIZblSH 5Ez1ZgaZU5XIo+Lk2EFN2eg5UvIFndMrVhQY3myr6S KPsAUsYiT2AcggJ4GDC2FZKlSm4HRWScRTXniTMjHFQhSHFHDnQuA1XicX85AAQJJn9+DQplbmRvYmoN MwN5ZUFyx2DnFRb4GW7SRJYwLKd0eSKdY38ee2ZutWNdMtgoXNBruULaIR5epleuwrtgEGBbBKSjSTCm LfQdKxYzKDHrOPv0XXMBOQzLNvMiT1Mnj7LeLvZ7PG OzWdHdHRduPAPxOeJ9TG43cHceCZ8XRWUuCOEwFV14AXL9MEFpJf7LFd2VBtHwTS2gbn3ZDtsvIMHjJl sEXgw9OHskYW9OpZXuC4AhmPErz7yTJfZiR0GMLCW0LHQdUn2ELUPnWuGcSVPxETpwTB6tYRGjYTVIcG opnjR8OP6GQD6cjoIxIT1VUcXcGg7cWn7HUhLzA8Zl O6XpSNEdZMSXKUojXA0RLTgnAZ5nGW8Io3AFqKGxsZ3cau6XXXHmKJCcPldcgs2CXknkE1D1eSsgFERe JkmdVLXKHFxvLT6AWOXrIWK1MTXcRtZkDVPRRfTeH63qDV4DY0Lue46vQnJ5OGKwErXtTPwyHS98jEzd ptMluFOeiLcsPV9MPz8+DQplbmRvYmoNCnhyZWYNCj IaYLGAFpVkWYQeXITbCNYfQiJ1DnCxDu0CQQFiWQNrEEZtAnHwLPTtXMVgOHxsNNKrFKAwBOC9KZEbKD XaPA2KOoRlZACeADO3LkQlVBCzKHDxay8OPUXeNRCtDZL9LbXcNISzLXQjQCjmWRVcZBXhUPN7XASnRZ YmDJ6IBqNoDQLzDIC3STAhUTPcYIBcpn2RDGDdWYWy ACCjIZCwXGPsJPNzXWdcOEAvZBO4ULLwBUYiBPKhXJ7JIpPrPSSaQOrgVjjvKPUlYUBjac4LVCRrGJYk YEUqShQvVDLcHFBfTSdrCXWxPMQmRhP4MXWvEIDwZK8TEjBgCCSwUQL7OWSkNOJfZAUxsb8ABKQpZINe PfApUkMsVEUfFBBpZRscKZKuQSO1UBYnAZYuSSFcTI 7OZiEzHVZmYqGnVfXoCXMdGXNofn7HMGZxTSCyNBX1XiSaVFVpMGYjRTzyWSGoGQNxAZZpWMTkRZKvVT 3CUaWxINOiJhJmMwHzBJVtFBVsiu9IQHEwLUYdFBAySkPqBUVoHDGnZJysDHWmMKS7BqQiHSReRPJeZA 3RRyBlNLEcAoU9NMHoGROkVGBxfj1BIFCfASGkOHX9 SNPqFRYtSRPeUEcaHUAqWMT3MeK8QYQzYBXfSJ0WUyGeLJIaSuO3XDSwNSBsRBZqty6PEIUxFOXuEhfr UUNwPBKkQFCcRRdhYJNgKHZ3MKGwRLByDJSuAS7WVlYyRXLdTzlmYDEiWMOmYXNkgk0ATZObQLHbNFJ7 IRSzQBFhRUXiDLbiBYGcUWU0JKz6GETlOXGsBY1ZGs OpUZOuTcelPWznIZDjBEBadj5MQITgCSHbGFD9KiSpZNUlVOFwFQhhAAFzKBH7NJobONAkKFNfCJ2EEo YnGDVnUHP8HlUlKPZoJDAljy5ONEMvHUA9VMOiTRGlSXQpKCCvMAqnCHOuHVWdHIVnKEPyTYMoPA5RDp EgZNNiLXAlWtJtWQUuYVGsat9LRDKkUXK2JjagJuSn XAZaTLWoYAurTSLsVWCsLem4AGOiFQAbBO8RHqFoQVFuSRZ7QwaiSDEmLXSvks4RfTOshYqfim9TCOiK Cu2DoOekQKZqFKslTi0okLZqAGSqKHPALw6OziBpRQSsNMWJUTewJAEaGES9BDUaRRRwLSYaJZWmTGyv VJLoVeP2DXWwE4UuFVFyPmU3FaN9ZWX4CuUrM5YoPM YcP4MlKrQeXAchO9A2OwY8RzH+HL0xORl+Yy0Ma0HzqqE9fqZuHBd1MgX4SH4PHHQXJ9GNHo== ID Date Data Source [id number] 01/05/2020 08:45:16 AM T [facility] Name Value Range Interpretation Code Description Data [place] rce(s) Supporting Document(s) Glucose [Mass/volume] in Capillary blood by Glucometer 132 mg/dL 70- 140 [facility] ID Date Data Source [id number] [facility] Code Description Data [place] rce(s) Supporting Document(s) Glucose [Mass/volume] in Capillary blood by Glucometer 116 mg/dL 70- 140 [facility] ID Date Data Source [id number] 01/05/2020 02:26:09 AM EDT [facility] Name Value Range Interpretation Code Description Data [place] rce(s) Supporting Document(s) Leukocytes [#/volume] in Blood by Automated count 12.6 10*3/uL 4-10 H [facility] Erythrocytes [#/volume] in Blood by Automated count 3.74 10*6/uL 4.1- 5.3 L [facility] Hemoglobin [Mass/volume] in Blood 11.0 g/dL 11.5-15.5 L [facility] Hematocrit [Volume Fraction] of Blood by Automated count 33.9 % 3 6-45 L [facility] Erythrocyte mean corpuscular volume [Entitic volume] by Auto mated count 90.6 fL 80-96 [facility] Erythrocyte mean corpuscular hemoglobin [Entitic mass] by Automated count 29.4 pg 27-33 [facility] Erythrocyte mean corpuscular hemoglobin concentration [Mass/volume] by Automated count 32.5 g/dL 32.0-36.0 [facility] E[facility]th[facility] distribution width [Ratio] by Automated count 16.1 % 11.5-14.5 H [facility] Platelets [#/volume] in Blood by Automated count 490 10*3/uL 150-400 H [facility] Differential cell count method - Blood [facility] Neutrophils/100 leukocytes in Blood by Automated count 86 % [facility] Lymphocytes/100 leukocytes in Blood by Automated count 7 % [facility] Monocytes/100 leukocytes in Blood by Automated count 6 % [facility] Eosinophils/100 leukocytes in Blood by Automated count 1 % [facility] Basophils/100 leukocytes in Blood by Automated count 0 % [facility] Neutrophils [#/volume] in Blood by Automated count 10.82 10*3/uL 1.8- 7.0 H [facility] Lymphocytes [#/volume] in Blood by Automated count 0.88 10*3/uL 1.2-4 .0 L [facility] Monocytes [#/volume] in Blood by Automated count 0.73 10*3/uL 0-0.8 [facility] Eosinophils [#/volume] in Blood by Automated count 0.12 10*3/uL 0-0.5 [facility] Basophils [#/volume] in Blood by Automated count 0.05 10*3/uL 0-0.2 [facility] Nucleated erythrocytes/100 leukocytes [Ratio] in Blood by Automated count 0 /100{WBCs} 0-0 [facility] ID Date Data Source [id number] 01/05/2020 02:46:15 AM [facility] Name Value Range Interpretation Code Description Data [place] rce(s) Supporting Document(s) Magnesium [Mass/volume] in Serum or Plasma 2.2 mg/dL 1.6-2.4 [facility] ID Date Data Source [id number] 01/05/2020 02:46:15 AM [facility] Name Value Range Interpretation Code Description Data [place] rce(s) Supporting Document(s) Phosphate [Mass/volume] in Serum or Plasma 2.2 mg/dL 2.5-4.5 [facility] ID Date Data Source [id number] 01/05/2020 02:46:15 AM [facility] Name Value Range Interpretation Code Description Data [place] rce(s) Supporting Document(s) Bicarbonate [Moles/volume] in Serum 28 mmol/L 22-29 [facility] Chloride [Moles/volume] in Serum or Plasma 104 mmol/L 98-107 [facility] Creatinine [Mass/volume] in Serum or Plasma 0.46 mg/dL 0.50-0.90 [facility] Glucose [Mass/volume] in Serum or Plasma 110 mg/dL 70-140 [facility] Potassium [Moles/volume] in Serum or Plasma 4.2 mmol/L 3.4-5.1 [facility] Sodium [Moles/volume] in Serum or Plasma 137 mmol/L 136-145 [facility] Urea nitrogen [Mass/volume] in Serum or Plasma 11 mg/dL 8-23 [facility] Anion gap 3 in Serum or Plasma 5 mmol/L 8-15 L [facility] Osmolality of Serum or Plasma by calculation 284 mosm/kg 275-300 [facility] Creatinine/Urea nitrogen [Mass Ratio] in Serum or Plasma 24 [facility] Calcium [Mass/volume] in Serum or Plasma 8.4 mg/dL 8.8-10.2 [facility] Glomerular filtration rate/1.73 sq M pre dicted among non-blacks [Volume Rate/Area] in Serum or Plasma by Creatinine-based formula (MDRD) >6 0 [facility] Glomerular filtration rate/1.73 sq M pre dicted among blacks [Volume Rate/Area] in Serum or Plasma by Creatinine-based formula (MDRD) >60 [facility] ID Date Data Source [id number] 01/04/2020 08:10:00 PM EDT [facility] XR CHEST FRONTAL ONLY [id number] RESULTI nterpreted by:Nila Cortez [facility]: Exam: XR Chest, 1 View Exam date and time: 01/04/2020 8:02 PM Age: 74 years old Clinical indication: Salmonella sepsis; Diverticulitis of large intestine with perforation and abscess without bleeding; Altered mental status, unspecified; Device placement; Ng tube; Additional info: Ng tube placement TECHNIQUE: Imaging protocol: XR of the chest Views: 1 view. COMPARISON: CR XR CHEST FRONTAL ONLY [id number] PORTABLE 12/30/2019 5:04 PM FINDINGS: Tubes, catheters [...] rce(s) Supporting Document(s) ID Date Data Source [id number] 01/04/2020 05:42:27 PM [facility] Name Value Range Interpretation Code Description Data [place] rce(s) Supporting Document(s) Glucose [Mass/volume] in Capillary blood by Glucometer 107 mg/dL 70- 140 [facility] ID Date Data Source [id number] 01/04/2020 05:20:11 PM [facility] XR ABDOMEN AP ABD SUPINE ONLY [id number] RESULTInterpreted by:Frandy Jameson MDINDICATION: 74-year-old female evaluate [...] rce(s) Supporting Document(s) ID Date Data Source [id number] 01/04/2020 02:56:09 PM [facility] Name Value Range Interpretation Code Description Data [place] rce(s) Supporting Document(s) Albumin [Mass/volume] in Serum or Plasma by Bromocresol green (BCG) dye binding method 2.6 g/dL 3.5-5.2 [facility] Bil[facility].total [Mass/volume] in Serum or Plasma 0.3 mg/dL <1.2 [facility] Calcium [Mass/volume] in Serum or Plasma 8.3 mg/dL 8.8-10.2 L [facility] Chloride [Moles/volume] in Serum or Plasma 105 mmol/L 98-107 [facility] Creatinine [Mass/volume] in Serum or Plasma 0.43 mg/dL 0.50-0.90 L [facility] Glucose [Mass/volume] in Serum or Plasma 96 mg/dL 70-140 [facility] Alkaline phosphatase [Enzymatic activity/volume] in Serum or Plasma 50 U/L 35-104 [facility] Potassium [Moles/volume] in Serum or Plasma 4.4 mmol/L 3.4-5.1 [facility] Protein [Mass/volume] in Serum or Plasma 6.0 g/dL 6.4-8.3 L [facility] Sodium [Moles/volume] in Serum or Plasma 137 mmol/L 136-145 [facility] Aspartate aminotransferase [Enzymatic activity/volume] in Serum or Plasma 19 U/L <32 [facility] Urea nitrogen [Mass/volume] in Serum or Plasma 10 mg/dL 8-23 [facility] Osmolality of Serum or Plasma by calculation 283 mosm/kg 275-300 [facility] Creatinine/Urea nitrogen [Mass Ratio] in Serum or Plasma 22 [facility] Bicarbonate [Moles/volume] in Serum 25 mmol/L 22-29 [facility] Alanine aminotransferase [Enzymatic activity/volume] in Seru m or Plasma 6 U/L <33 [facility] Anion gap 3 in Serum or Plasma 8 mmol/L 8-15 [facility] Glomerular filtration rate/1.73 sq M pre dicted among non-blacks [Volume Rate/Area] in Serum or Plasma by Creatinine-based formula (MDRD) >6 0 [facility] Glomerular filtration rate/1.73 sq M pre dicted among blacks [Volume Rate/Area] in Serum or Plasma by Creatinine-based formula (MDRD) >60 [facility] ID Date Data Source [id number] [facility] Interpret[facility] Code Description Data [place] rce(s) Supporting Document(s) Glucose [Mass/volume] in Capillary blood by Glucometer 101 mg/dL 70- 140 [facility] ID Date Data Source [id number] 01/04/2020 08:48:39 AM [facility] Value Range Interpretation Code Description Data [place] rce(s) Supporting Document(s) Glucose [Mass/volume] in Capillary blood by Glucometer 107 mg/dL 70- 140 [facility] ID Date Data Source [id number] [facility]/04[facility]2020 04:58[facility] Interpretation Code Description Data [place] rce(s) Supporting Document(s) Magnesium [Mass/volume] in Serum or Plasma 2.1 mg/dL 1.6-2.4 [facility] ID Date Data Source [id number] 01/04/2020 04:58:32 AM [facility] Value Range Interpretation Code Description Data [place] rce(s) Supporting Document(s) Bicarbonate [Moles/volume] in Serum 27 mmol/L 22-29 [facility] Chloride [Moles/volume] in Serum or Plasma 104 mmol/L 98-107 [facility] Creatinine [Mass/volume] in Serum or Plasma 0.38 mg/dL 0.50-0.90 L [facility] Glucose [Mass/volume] in Serum or Plasma 82 mg/dL 70-140 [facility] Potassium [Moles/volume] in Serum or Plasma 3.8 mmol/L 3.4-5.1 [facility] Sodium [Moles/volume] in Serum or Plasma 139 mmol/L 136-145 [facility] Urea nitrogen [Mass/volume] in Serum or Plasma 7 mg/dL 8-23 L [facility] Anion gap 3 in Serum or Plasma 8 mmol/L 8-15 [facility] Osmolality of Serum or Plasma by calculation 285 mosm/kg 275-300 [facility] Creatinine/Urea nitrogen [Mass Ratio] in Serum or Plasma 18 [facility] Calcium [Mass/volume] in Serum or Plasma 7.6 mg/dL 8.8-10.2 L [facility] Glomerular filtration rate/1.73 sq M pre dicted among non-blacks [Volume Rate/Area] in Serum or Plasma by Creatinine-based formula (MDRD) >6 0 [facility] Glomerular filtration rate/1.73 sq M pre dicted among blacks [Volume Rate/Area] in Serum or Plasma by Creatinine-based formula (MDRD) >60 [facility] ID Date Data Source [id number] 01/04/2020 04:58:32 AM EDT [facility] Value Range Interpretation Code Description Data [place] rce(s) Supporting Document(s) Phosphate [Mass/volume] in Serum or Plasma 2.5 mg/dL 2.5-4.5 [facility] ID Date Data Source [id number] 01/04/2020 04:58:32 AM EDT [facility] Value Range Interpretation Code Description Data [place] rce(s) Supporting Document(s) Triglyceride [Mass/volume] in Serum or Plasma 165 mg/dL <150 H [facility] ID Date Data Source [id number] [facility]:44[facility] Interpretation Code Description Data [place] rce(s) Supporting Document(s) Leukocytes [#/volume] in Blood by Automated count 12.5 10*3/uL 4-10 H [facility] Erythrocytes [#/volume] in Blood by Automated count 3.84 10*6/uL 4.1- 5.3 L [facility] Hemoglobin [Mass/volume] in Blood 11.3 g/dL 11.5-15.5 [facility] Hematocrit [Volume Fraction] of Blood by Automated count 35.0 % 3 6-45 L [facility] Erythrocyte mean corpuscular volume [Entitic volume] by Auto mated count 91.1 fL 80-96 [facility] Erythrocyte mean corpuscular hemoglobin [Entitic mass] by Automated count 29.4 pg 27-33 [facility] Erythrocyte mean corpuscular hemoglobin concentration [Mass/volume] by Automated count 32.3 g/dL 32.0-36.0 [facility] E[facility] width [Ratio] by Automated count 16.6 % 11.5-14.5 [facility] Platelets [#/volume] in Blood by Automated count 537 10*3/uL 150-400 [facility] Differential cell count method - Blood [facility] Neutrophils/100 leukocytes in Blood by Automated count 86 % [facility] Lymphocytes/100 leukocytes in Blood by Automated count 5 % [facility] Monocytes/100 leukocytes in Blood by Automated count 5 % [facility] Neutrophils [#/volume] in Blood by Automated count 10.86 10*3/uL 1.8- 7.0 H [facility] Lymphocytes [#/volume] in Blood by Automated count 0.59 10*3/uL 1.2-4 .0 [facility] Monocytes [#/volume] in Blood by Automated count 0.59 10*3/uL 0-0.8 [facility] Variant lymphocytes/100 leukocytes in Blood by Manual count 1 % [facility] Metamyelocytes/100 leukocytes in Blood by Manual count 3 % [facility] Lymphocytes [#/volume] in Blood 0.11 10*3/uL 0 H [facility] Metamyelocytes [#/volume] in Blood by Manual count 0.35 10*3/uL 0-0 [facility] ID Date Data Source [id number] 01/04/2020 04:41:35 AM EDT [facility] Name Value Range Interpretation Code Description Data [place] rce(s) Supporting Document(s) Calcium.ionized [Moles/volume] in Arterial blood 1.15 mmol/L 1.13-1.3 2 [facility] ID Date Data Source [id number] 01/04/2020 01:25:46 AM EDT [facility] Name Value Range Interpretation Code Description Data [place] rce(s) Supporting Document(s) Glucose [Mass/volume] in Capillary blood by Glucometer 94 mg/dL 70- 140 [facility] ID Date Data Source [id number] 01/03/2020 06:39:10 PM EDT [facility] Name Value Range Interpretation Code Description Data [place] rce(s) Supporting Document(s) [facility] [id number] lbm [file] +AThfqAbPmftrwmBvn3PigaRj7FisnOLwZf/OM/+HELP DESK INTERNSHIP [file] ICAgICAgICAgICAgICAgICAgICAgICAgICAgICAgICAgICAgICAgICAgICAgICAgICAgICAgICAgICAg ICAgICAgICAgICAgICAgICAgDQogICAgICAgICAgIC AgICAgICAgICAgICAgICAgICAgICAgICAgICAgICAgICAgICAgICAgICAgICAgICAgICAgICAgICAgIC AgICAgICAgICAgICAgICAgICAgICAgICAgICAgDQogICAgICAgICAgICAgICAgICAgICAgICAgICAgIC AgICAgICAgICAgICAgICAgICAgICAgICAgICAgICAg ICAgICAgICAgICAgICAgICAgICAgICAgICAgICAgICAgICAgICAgDQogICAgICAgICAgICAgICAgICAg ICAgICAgICAgICAgICAgICAgICAgICAgICAgICAgICAgICAgICAgICAgICAgICAgICAgICAgICAgICAg ICAgICAgICAgICAgICAgICAgICAgDQogICAgICAgIC AgICAgICAgICAgICAgICAgICAgICAgICAgICAgICAgICAgICAgICAgICAgICAgICAgICAgICAgICAgIC AgICAgICAgICAgICAgICAgICAgICAgICAgICAgICAgDQogICAgICAgICAgICAgICAgICAgICAgICAgIC AgICAgICAgICAgICAgICAgICAgICAgICAgICAgICAg ICAgICAgICAgICAgICAgICAgICAgICAgICAgICAgICAgICAgICAgICAgDQogICAgICAgICAgICAgICAg ICAgICAgICAgICAgICAgICAgICAgICAgICAgICAgICAgICAgICAgICAgICAgICAgICAgICAgICAgICAg ICAgICAgICAgICAgICAgICAgICAgICAgDQogICAgIC AgICAgICAgICAgICAgICAgICAgICAgICAgICAgICAgICAgICAgICAgICAgICAgICAgICAgICAgICAgIC AgICAgICAgICAgICAgICAgICAgICAgICAgICAgICAgICAgDQogICAgICAgICAgICAgICAgICAgICAgIC AgICAgICAgICAgICAgICAgICAgICAgICAgICAgICAg ICAgICAgICAgICAgICAgICAgICAgICAgICAgICAgICAgICAgICAgICAgICAgDQogICAgICAgICAgICAg ICAgICAgICAgICAgICAgICAgICAgICAgICAgICAgICAgICAgICAgICAgICAgICAgICAgICAgICAgICAg JRJnRJVxTNUwDPDcVYWcFFLsDMMlMYSaEUZmAAl0F7 rzDDFvUMKrLD0bCIq1Ki2+MLtVIvTkIQD7tbDojX9HGD8io4BpISgbFEZmx8MgAQs5RB4YSEUpUAksED 9NZNingh0NYIQdVOQxsBWLk1waRxGoIEP0HGEzPhxqYA7PGEWsI8hvljOtNFJsSPJNPFxaWVSMZCfcWT VUJJDaFBUeZkXkNwKtJIByBFHqJEHTTY4EGwApT7Hm rI04MNCGLd0+YNlzphEdEvtWPjP0CLCxe1GyAWx9XQ6EOPArDiauj9LhIkQlDAMSPJyjJV1PZHQ1VCA6 JDAsXx3VCZWaN797bgAvGL8TFf0TGkDwMJ9pss6FRvVcAHHgRqiPHxf7DZmvPZ8UzLZbNUbQp96elTm9 wiDkbTYXWORzG4zehdfikFOgwCHcaKvnXJ8RDUQ7WE AqHkJ1MiMjQmByIUH9OIQjDL4oFNudET0KEMZ9NLarJFYhDMExZ8dISaYjKPTvKiKveMhkDZ7HIeMzS5 BhcmVudCAzNSAwIFINCj4+WNfffeEnObhUKhA8FMAxf0FeWOh1PK2QXDJnXFolLX3YFRYuhN4vUFonEO 5XRbAsMgLmEWBODdLkI77acUEeGNd7N0NvUpWvLMRx RmlsZXMgPDwvTmFtZXMgWyBdDQogID4+ID4+BXpmSE1BHPwlfdZmGYQfUs8WXLGwZUDnAB4mUPKuJRZn I4E9eYeiHOSPNmXyB3melflnLB7nAGPkY442hKdufvSuYTC1ISKpNd5ZNFCuYJM5JWJekASvYyBiKIIU FFsrYO2XfELnOUU0sC8yPPjpGEFvNHNpI0xHUlQtnA guNO00hHcglkStaXZpIVq+Yp2DIE7bc2SjBVv5hgRbGIaoOXB8SZuwAXHwZBUrNMKqRXE2PHL0YPQZVc ZyCXEoBKVyLSctCSMiINOrpd8FFHCaBIWePVMjDdDnHLPePMOyUEqbZTZzHMX8UNh7PMGhFXRcIL2FAu OyDLDoFRGeBCsgQGCyAGXhmb7IKPXeOSVyUSB2HKLf YISwVPDgMVqsWAIeDHG8IRKnUUWlZCMdDM1UMgTjVVYgNLuwNSRgUCZaMLElsm2XCJNwPJXuQaR8XMAk YYFoSFBaZDewGDDiNFTxRFk9VMFgQNZoOS8XKxVcCEJoIJRxHZrtAKMmBPGkpx9CSRUbAFKqHll8GxIe YNUtMFJvGAeqXOOvLRX4AJFyDMAqRGOeAB9NPqEnGR WaAVn1OMgoBPDrQXVwsq8YFHNtQWTbAhf8LqPpTHBvRCXtXBctCCGrKDJoVyU1RAWfPUDiOE7DRyQtZA DqBfA4GtBjYZVkSHWpjr7SKKQyEFDwDAOdPPYfLXVzUZTqHGdtJRMrVSNuMmSoKQNkFSDfXQ9YPiYgFC OdTqB1DMHwRMRmXXCvcw4UWPDtARYkOut7LFBaVTOk HIHrEQatXGCvJHMnSJs1HSBiOCMxNE9NQjMfURJxBmVrQuQfMPCvKWUkik6NJHJvUWZsFRYyOJZdJZUf INLyPZpdCKYgNES5XnBpUHBaJCXgQN0XWoNtQOTnJuT4QGWfSUKhQGOcan0ZMSAqJOEeCNk7PCExFCEt MYRhXDkgZYXnNPD7GoV7PODdHQHvXJ3VOlVzAMJfEx A8JONbJHKlAMWmcb8DYKJrYOShSxH6HTLfFFBfHHOxGTbqYNOsJCO6RUAhNZJfKJZhFW7VOiZoXYUhRk v8HFCxTCOjGMZsva9ZAPRgPOEcNlsbQvBpDFMtXNHmPKmeZELzYAH0RCQzUYSuXYBdMA6CTjFlVGMtFs w2BPOjRFWfBNUcxl1QJGUgEGL5JTGwIOAsVNGsBBHq KHtaDSYjWWIpPKv5IUYgUNIsKQ6FWmGnGHMsYVVmMsNlCZDqBNLzao2UsBChfKhaux0BNCdOTn1KiRnr XRT7RXelNn7ffPOaKmQgPCVUYk8WqkScPHZuWWBOOOasOGJuCYMiDxUkSEZ1UPG0Hxn7ZIW5PEfrNDX1 UXR7Gkp9DWWjRfG9OxFaAMJuBQDwNOUtMPO4EbVvGT I8NApwTFnpBYxiSMF+ST3eOPg+Bn2Lg3XgtqL7lvRfBVs5MSA0NU3SRTPNK7JTQe== ID Date Data Source [id number] 01/03/2020 05:41:58 PM [facility] Name Value Range Interpretation Code Description Data [place] rce(s) Supporting Document(s) Glucose [Mass/volume] in Capillary blood by Glucometer 80 mg/dL 70- 140 [facility] ID Date Data Source [id number] 01/03/2020 06:11:41 PM [facility] Name Value Range Interpretation Code Description Data [place] rce(s) Supporting Document(s) Bicarbonate [Moles/volume] in Serum 26 mmol/L 22-29 [facility] Chloride [Moles/volume] in Serum or Plasma 103 mmol/L 98-107 [facility] Creatinine [Mass/volume] in Serum or Plasma 0.48 mg/dL 0.50-0.90 L [facility] Glucose [Mass/volume] in Serum or Plasma 78 mg/dL 70-140 [facility] Potassium [Moles/volume] in Serum or Plasma 3.7 mmol/L 3.4-5.1 [facility] Sodium [Moles/volume] in Serum or Plasma 137 mmol/L 136-145 [facility] Urea nitrogen [Mass/volume] in Serum or Plasma 7 mg/dL 8-23 L [facility] Anion gap 3 in Serum or Plasma 8 mmol/L 8-15 [facility] Osmolality of Serum or Plasma by calculation 280 mosm/kg 275-300 [facility] Creatinine/Urea nitrogen [Mass Ratio] in Serum or Plasma 14 [facility] Calcium [Mass/volume] in Serum or Plasma 8.2 mg/dL 8.8-10.2 L [facility] Glomerular filtration rate/1.73 sq M pre dicted among non-blacks [Volume Rate/Area] in Serum or Plasma by Creatinine-based formula (MDRD) >6 0 [facility] Glomerular filtration rate/1.73 sq M pre dicted among blacks [Volume Rate/Area] in Serum or Plasma by Creatinine-based formula (MDRD) >60 [facility] ID Date Data Source [id number] 01/03/2020 01:39:11 PM [facility] CT ABDOMEN PELVIS WITH CONTRAST [id number] AL RESULTInterpreted by:Ephraim Rainey, MDPROCEDURE INFORMATION: Exam: [...] 40; COMPARISON: CT ABDOMEN PELVIS WITH CONTRAST [id number] 12/29/2019 4:50 AM FI NDINGS: Tubes, catheters [...] rce(s) Supporting Document(s) ID Date Data Source [id number] 01/03/2020 12:34:06 PM [facility] Value Range Interpretation Code Description Data [place] rce(s) Supporting Document(s) Glucose [Mass/volume] in Capillary blood by Glucometer 88 mg/dL 70- 140 [facility] ID Date Data Source [id number] 01/03/2020 09:06:01 AM [facility] Value Range Interpretation Code Description Data [place] rce(s) Supporting Document(s) Glucose [Mass/volume] in Capillary blood by Glucometer 120 mg/dL 70- 140 [facility] ID Date Data Source [id number] 01/03/2020 06:21:38 AM [facility] Value Range Interpretation Code Description Data [place] rce(s) Supporting Document(s) Glucose [Mass/volume] in Capillary blood by Glucometer 125 mg/dL 70- 140 [facility] ID Date Data Source [id number] 01/03/2020 04:54:35 AM [facility] Value Range Interpretation Code Description Data [place] rce(s) Supporting Document(s) Leukocytes [#/volume] in Blood by Automated count 11.8 10*3/uL 4-10 H [facility] Erythrocytes [#/volume] in Blood by Automated count 3.98 10*6/uL 4.1- 5.3 L [facility] Hemoglobin [Mass/volume] in Blood 11.9 g/dL 11.5-15.5 [facility] Hematocrit [Volume Fraction] of Blood by Automated count 35.8 % 3 6-45 L [facility] Erythrocyte mean corpuscular volume [Entitic volume] by Auto mated count 89.8 fL 80-96 [facility] Erythrocyte mean corpuscular hemoglobin [Entitic mass] by Automated count 29.8 pg 27-33 [facility] Erythrocyte mean corpuscular hemoglobin concentration [Mass/volume] by Automated count 33.2 g/dL 32.0-[facility].0 [facility] width [Ratio] by Automated count 16.3 % 11.5-14.5 H [facility] Platelets [#/volume] in Blood by Automated count 536 10*3/uL 150-400 H [facility] Differential cell count method - Blood [facility] Neutrophils/100 leukocytes in Blood by Automated count 84 % [facility] Lymphocytes/100 leukocytes in Blood by Automated count 7 % [facility] Monocytes/100 leukocytes in Blood by Automated count 7 % [facility] Eosinophils/100 leukocytes in Blood by Automated count 1 % [facility] Basophils/100 leukocytes in Blood by Automated count 1 % [facility] Neutrophils [#/volume] in Blood by Automated count 9.92 10*3/uL 1.8-7 .0 H [facility] Lymphocytes [#/volume] in Blood by Automated count 0.80 10*3/uL 1.2-4 .0 L [facility] Monocytes [#/volume] in Blood by Automated count 0.86 10*3/uL 0-0.8 H [facility] Eosinophils [#/volume] in Blood by Automated count 0.10 10*3/uL 0-0.5 [facility] Basophils [#/volume] in Blood by Automated count 0.08 10*3/uL 0-0.2 [facility] Nucleated erythrocytes/100 leukocytes [Ratio] in Blood by Automated count 0 /100{WBCs} 0-0 [facility] ID Date Data Source [id number] 01/03/2020 04:56:14 AM [facility] Value Range Interpretation Code Description Data [place] rce(s) Supporting Document(s) Prothrombin time (PT) 17.3 s 12.5-14.9 [facility] INR in Platelet poor plasma by Coagulation assay 1.39 [facility] Routine intensity oral anticoagulation I NR is typically 2.0-3.0. Target INR must be clinically individualized. ID Date Data Source [id number] 01/03/2020 05:02:57 AM [facility] Value Range Interpretation Code Description Data [place] rce(s) Supporting Document(s) Bicarbonate [Moles/volume] in Serum 28 mmol/L 22-29 [facility] Chloride [Moles/volume] in Serum or Plasma 99 mmol/L 98-107 [facility] Creatinine [Mass/volume] in Serum or Plasma 0.56 mg/dL 0.50-0.90 [facility] Glucose [Mass/volume] in Serum or Plasma 118 mg/dL 70-140 [facility] Potassium [Moles/volume] in Serum or Plasma 3.2 mmol/L 3.4-5.1 L [facility] Sodium [Moles/volume] in Serum or Plasma 132 mmol/L 136-145 L [facility] Urea nitrogen [Mass/volume] in Serum or Plasma 9 mg/dL 8-23 [facility] Anion gap 3 in Serum or Plasma 5 mmol/L 8-15 L [facility] Osmolality of Serum or Plasma by calculation 274 mosm/kg 275-300 L [facility] Creatinine/Urea nitrogen [Mass Ratio] in Serum or Plasma 16 [facility] Calcium [Mass/volume] in Serum or Plasma 8.6 mg/dL 8.8-10.2 L [facility] Glomerular filtration rate/1.73 sq M pre dicted among non-blacks [Volume Rate/Area] in Serum or Plasma by Creatinine-based formula (MDRD) >6 0 [facility] Glomerular filtration rate/1.73 sq M pre dicted among blacks [Volume Rate/Area] in Serum or Plasma by Creatinine-based formula (MDRD) >60 [facility] ID Date Data Source [id number] 01/02/2020 11:55:59 PM [facility] Name Value Range Interpretation Code Description Data [place] rce(s) Supporting Document(s) Glucose [Mass/volume] in Capillary blood by Glucometer 97 mg/dL 70- 140 [facility] ID Date Data Source [id number] 01/02/2020 08:53:35 PM [facility] Name Value Range Interpretation Code Description Data [place] rce(s) Supporting Document(s) Glucose [Mass/volume] in Capillary blood by Glucometer 106 mg/dL 70- 140 [facility] ID Date Data Source [id number] 01/02/2020 05:55:58 PM [facility] Value Range Interpretation Code Description Data [place] rce(s) Supporting Document(s) Glucose [Mass/volume] in Capillary blood by Glucometer 92 mg/dL 70- 140 [facility] ID Date Data Source [id number] 01/02/2020 04:07:21 PM [facility] Name Value Range Interpretation Code Description Data [place] rce(s) Supporting Document(s) Glucose [Mass/volume] in Capillary blood by Glucometer 85 mg/dL 70- 140 [facility] ID Date Data Source [id number] 01/02/2020 02:56:21 PM [facility] Name Value Range Interpretation Code Description Data [place] rce(s) Supporting Document(s) Glucose [Mass/volume] in Capillary blood by Glucometer 87 mg/dL 70- 140 [facility] ID Date Data Source [id number] 01/02/2020 01:49:30 PM [facility] Value Range Interpretation Code Description Data [place] rce(s) Supporting Document(s) Glucose [Mass/volume] in Capillary blood by Glucometer 105 mg/dL 70- 140 [facility] ID Date Data Source [id number] 01/02/2020 01:29:28 PM [facility] Value Range Interpretation Code Description Data [place] rce(s) Supporting Document(s) Glucose [Mass/volume] in Capillary blood by Glucometer 117 mg/dL 70- 140 [facility] ID Date Data Source [id number] 01/02/2020 12:57:36 PM [facility] Value Range Interpretation Code Description Data [place] rce(s) Supporting Document(s) Glucose [Mass/volume] in Capillary blood by Glucometer 62 mg/dL 70- 140 L [facility] ID Date Data Source [id number] 01/02/2020 08:45:34 AM [facility] XR ABDOMEN AP ABD SUPINE ONLY [id number] RESULTInterpreted by:Mauri King, MDPROCEDURE INFORMATION: Exam: XR [...] DX XR ABDOMEN AP ABD SUPINE ONLY [id number] PORTABLE 01/01/2020 7:28 PM FINDINGS: Tubes, catheters [...] rce(s) Supporting Document(s) ID Date Data Source [id number] 01/02/2020 05:49:08 AM [facility] Name Value Range Interpretation Code Description Data [facility] rce(s) Supporting Document(s) Leukocytes [#/volume] in Blood by Automated count 13.6 10*3/uL 4-10 H [facility] Erythrocytes [#/volume] in Blood by Automated count 3.93 10*6/uL 4.1- 5.3 L [facility] Hemoglobin [Mass/volume] in Blood 11.5 g/dL 11.5-15.5 [facility] Hematocrit [Volume Fraction] of Blood by Automated count 35.6 % 3 6-45 L [facility] Erythrocyte mean corpuscular volume [Entitic volume] by Auto mated count 90.7 fL 80-96 [facility] Erythrocyte mean corpuscular hemoglobin [Entitic mass] by Automated count 29.4 pg 27-33 [facility] Erythrocyte mean corpuscular hemoglobin concentration [Mass/volume] by Automated count 32.4 g/dL 32.0-36.0 [facility] E[facility]th[facility] distribution width [Ratio] by Automated count 16.4 % 11.5-14.5 H [facility] Platelets [#/volume] in Blood by Automated count 484 10*3/uL 150-400 H [facility] Differential cell count method - Blood [facility] Neutrophils/100 leukocytes in Blood by Automated count 87 % [facility] Lymphocytes/100 leukocytes in Blood by Automated count 7 % [facility] Monocytes/100 leukocytes in Blood by Automated count 5 % [facility] Eosinophils/100 leukocytes in Blood by Automated count 1 % [facility] Basophils/100 leukocytes in Blood by Automated count 0 % [facility] Neutrophils [#/volume] in Blood by Automated count 11.91 10*3/uL 1.8- 7.0 H [facility] Lymphocytes [#/volume] in Blood by Automated count 0.89 10*3/uL 1.2-4 .0 L [facility] Monocytes [#/volume] in Blood by Automated count 0.71 10*3/uL 0-0.8 [facility] Eosinophils [#/volume] in Blood by Automated count 0.08 10*3/uL 0-0.5 [facility] Basophils [#/volume] in Blood by Automated count 0.05 10*3/uL 0-0.2 [facility] Nucleated erythrocytes/100 leukocytes [Ratio] in Blood by Automated count 0 /100{WBCs} 0-0 [facility] ID Date Data Source [id number] 01/02/2020 06:05:20 AM EDT [facility] Name Value Range Interpretation Code Description Data [place] rce(s) Supporting Document(s) Bicarbonate [Moles/volume] in Serum 26 mmol/L 22-29 [facility] Chloride [Moles/volume] in Serum or Plasma 99 mmol/L 98-107 [facility] Creatinine [Mass/volume] in Serum or Plasma 0.46 mg/dL 0.50-0.90 [facility] Glucose [Mass/volume] in Serum or Plasma 64 mg/dL 70-140 [facility] Potassium [Moles/volume] in Serum or Plasma 3.9 mmol/L 3.4-5.1 [facility] Sodium [Moles/volume] in Serum or Plasma 134 mmol/L 136-145 [facility] Urea nitrogen [Mass/volume] in Serum or Plasma 6 mg/dL 8-23 [facility] Anion gap 3 in Serum or Plasma 9 mmol/L 8-15 [facility] Osmolality of Serum or Plasma by calculation 274 mosm/kg 275-300 L [facility] Creatinine/Urea nitrogen [Mass Ratio] in Serum or Plasma 13 [facility] Calcium [Mass/volume] in Serum or Plasma 8.0 mg/dL 8.8-10.2 [facility] Glomerular filtration rate/1.73 sq M pre dicted among non-blacks [Volume Rate/Area] in Serum or Plasma by Creatinine-based formula (MDRD) >6 0 [facility] Glomerular filtration rate/1.73 sq M pre dicted among blacks [Volume Rate/Area] in Serum or Plasma by Creatinine-based formula (MDRD) >60 [facility] ID Date Data Source [id number] 01/01/2020 08:18:48 PM EDT [facility] XR ABDOMEN AP ABD SUPINE ONLY [id number] RESULTInterpreted by:DEONDRE LevyPROCEDURE INFORMATION: Exam: XR Abdomen, [...] FLUORO SMALL BOWEL SERIES SINGLE CONTRAST STUDY [id number] 12/31/2019 8:14 AM FINDINGS: Tubes, catheters and [...] rce(s) Supporting Document(s) ID Date Data Source [id number] 01/01/2020 07:17:59 PM EDT [facility] FLUORO SMALL BOWEL SERIES SINGLE CONTRAS T STUDY [id number] RESULTInterpreted by:ÁNGEL BallLINICAL HISTORY: History of diverticulitis [...] tolerate at the time of exam).FINDINGS: The paver image shows multiple parallel horizontal dilated small [...] small bowel loops appear similar to the paver image through 5.5 hours and measure up [...] 22 hours.Findings discussed with Dr. Joslyn Cunha, [facility] Surgery, 7:00 PM, 01/01/2020.This document has been electronically signed by Maged Mclean MD on 01/01/2020 7:15 PM Name Value Range Interpretation Code Description Data [place] rce(s) Supporting Document(s) ID Date Data Source [id number] 01/01/2020 05:38:22 PM EDT [facility] Name Value Range Interpretation Code Description Data [place] rce(s) Supporting Document(s) Glucose [Mass/volume] in Capillary blood by Glucometer 83 mg/dL 70- 140 [facility] ID Date Data Source [id number] 01/01/2020 04:22:29 PM EDT [facility] US TRANSVAGINAL [id number] RESULTInterpr eted by:Vivian Norris MDHISTORY: Evaluation of ovariesTECHNIQUE: Real-time transabdominal [...] rce(s) Supporting Document(s) ID Date Data Source [id number] 01/01/2020 03:02:52 PM EDT [facility] Name Value Range Interpretation Code Description Data [place] rce(s) Supporting Document(s) [facility] [id number]/[id number]a [facility] [file] ICAgICAgICAgICAgICAgICAgICAgICAgICAgICAgICAgICAgICAgICAgICAgICAgICAgICAgICAgICAg ICAgICAgDQogICAgICAgICAgICAgICAgICAgICAgIC AgICAgICAgICAgICAgICAgICAgICAgICAgICAgICAgICAgICAgICAgICAgICAgICAgICAgICAgICAgIC AgICAgICAgICAgICAgICAgDQogICAgICAgICAgICAgICAgICAgICAgICAgICAgICAgICAgICAgICAgIC AgICAgICAgICAgICAgICAgICAgICAgICAgICAgICAg ICAgICAgICAgICAgICAgICAgICAgICAgICAgDQogICAgICAgICAgICAgICAgICAgICAgICAgICAgICAg ICAgICAgICAgICAgICAgICAgICAgICAgICAgICAgICAgICAgICAgICAgICAgICAgICAgICAgICAgICAg ICAgICAgICAgDQogICAgICAgICAgICAgICAgICAgIC AgICAgICAgICAgICAgICAgICAgICAgICAgICAgICAgICAgICAgICAgICAgICAgICAgICAgICAgICAgIC AgICAgICAgICAgICAgICAgICAgDQogICAgICAgICAgICAgICAgICAgICAgICAgICAgICAgICAgICAgIC AgICAgICAgICAgICAgICAgICAgICAgICAgICAgICAg ICAgICAgICAgICAgICAgICAgICAgICAgICAgICAgDQogICAgICAgICAgICAgICAgICAgICAgICAgICAg ICAgICAgICAgICAgICAgICAgICAgICAgICAgICAgICAgICAgICAgICAgICAgICAgICAgICAgICAgICAg ICAgICAgICAgICAgDQogICAgICAgICAgICAgICAgIC AgICAgICAgICAgICAgICAgICAgICAgICAgICAgICAgICAgICAgICAgICAgICAgICAgICAgICAgICAgIC AgICAgICAgICAgICAgICAgICAgICAgDQogICAgICAgICAgICAgICAgICAgICAgICAgICAgICAgICAgIC AgICAgICAgICAgICAgICAgICAgICAgICAgICAgICAg ICAgICAgICAgICAgICAgICAgICAgICAgICAgICAgICAgDQogICAgICAgICAgICAgICAgICAgICAgICAg ICAgICAgICAgICAgICAgICAgICAgICAgICAgICAgICAgICAgICAgICAgICAgICAgICAgICAgICAgICAg SNYvVCHeFKRqAEZpSACqKQt2E0hxMFUoKZOuWB5aWZ d3Jz8+KXdAYgUpWRG0buOegU2ZCF0qe0HyNYqjFJBdh1VsRCo7UU4WNFSgAIcaRA0BGElbbq5OKRFmEG OmkXCBy7kiJqXmNYZ1KCFiNrpwXX0NZUBsF7pnpsMuUNPvDKQOLXasQATAVGgiCMZJYSKjRGVeHwExVQ kzGH7Am4YihKQ8BEb+Kh0QCD2ds3AxLLaoSBHuAG4s mp0XNQuYOnHcE3KzpxT9TCYjJISzHo2FFDYlOSQhyCAoMoBgDNALNnFxX4OpeL00CPFKRx8+DQplbmRv DzrPUiThEZQau7CyVNp1CQ9QJPYbQGr8jZQlC04td5FhhXLdTipzJ8L1jTJjtI9gXIKgMrEgG6BpUG1Y JPR6JIEoMkZqXuLaXqLeGYE1EsLmIP8gPTihSJ1WSD P1ENwqOSJgJTCcS0eAVgXnFOSuQzRcmXoqBP7ZFnDoB4CmppCvhFHqAOAxIXPKZb9+DQplbmRvYmoNCj CbAMSpz3KdMAj0MZ4ZUDIzXGaaQH1COBWgoO2pHSquIU1QIsDhJKIyQIRVFyUjP18xfPQdJEx6B1HdYo VkZGVkRmlsZXMgPDwvTmFtZXMgWyBdDQogID4+ID4+ LEavKH4OGIdxqtGoYZFwUf2OWWDvOSOmCJ6uTIXxWRMnT3I1dFuxQIRARyOyN7xvooinWL7cSAWeG522 uJwqmtUvFHMiYGFlYb9BJDBsEUE1PMXmeKZqAlRbPWXOSYgbTP9OhTFaCDE8rV5bWGblMZReQHFcA2pI EmDnkCfdAG35uFrmyfClbBQyGQv+Kd3QLZ3kw8AsRP o1idRaUCeqHQS0UAftLZEyLGSzQTFuQHH3VAL8ELMVAdPhXJWyZTJgOMdsDBJtSAWirv4APLYzTIZfNQ LjXOFsAEWtVTHxWPrkUWMbAXJiZmzvIJAjURVhMJ3XFjDkRVQcVZNtTPjuLYRbWVBqaz7IYJGfVLVhPv IuUAFmLYOzFBYfTXrxEQKgVEWdJVX3ZKItLFKuLZ8I YrMiTBJnJXDiFqWtNVUhQLTldz2USQDgVRQdOsH9MJYqVAXcHQYvFPwfWQYvVVU8UFb8VJZnVLOyID8G JfThKOEdEBLbTPRyBVLiPOLzkn3FQRSqBOKuCHQ7AhGiHWToOZQqQQhgSDRtVUGtKvgxZJByOQLqFY7S XtOwFTKwZPWuIdMoBZMhZQKwiu5ROTVjMEKdXuMiGM UcTGPiTPQnBAfgFXNlDJSuUiDuTUFlDRRpNT6MLfUfZJErPXG2JhXoTLGoXCTuty0GYCAbXZHcGwv1XA IdVDYkYXXwYDwxMKTbILJ0GUKbONRmFFCjHX3QLwKhTXNkZKXqFwWaLIFjLYFycp3CDRVmADYxDASvPL HtGZKsARGpJOheVVGkHMV7JXCxEJJmWJWlXA2FIdJt GBStYyC7YQroXYTdQABori9VZZUxCLGqNxUtSDTsVUPjDIKmEDojTYLjWNQ0IvM5QILiTYMuAU3PWlSb OATwTpi1UNGaDPFyDQKdcd8WGZSpTKPnFuS1MDBfEHQsXFToKKnaOJMgXHQ5FrGiFAVgZLHtWR2OLtQi RERvHgr5JxMnAWZpQZTgjs4SXJOaLGSjEFDzOYYqGM KlRBFyCHgvEMXdBRT9PIVyHZVuVHXjSM5KHzTnFDQzZdG2COxuYTCkLULcaz9MFKTrJNYyQVa8MZOgDH BkIDZuWZppCUOmLBLiXKK7LPHdLBBuDI7HQpZvDOjiGLVCVmw9FUcsP3n9CKPmVF2IF4Vka2AzJmKgXE TORFgyDF5vgiSwRGFeFh4NJ0tBFmpiMnShRxOsRMv1 TQVrSqL9EIS0HAFqItllMFS7DpGiSk5tOMSfV5SzAfX0DQfuEAPoVueeAkP9FEV5VHJ4HEzvJrKpAmCn DR6APi5YZiR6QWF0bBDvZm8MMvAvHeMWDnZbPH4OHOe= ID Date Data Source [id number] [facility]2020 [facility] Code Description Data [place] rce(s) Supporting Document(s) Glucose [Mass/volume] in Capillary blood by Glucometer 96 mg/dL 70- 140 [facility] ID Date Data Source [id number] 01/01/2020 09:08:13 AM [facility] Value Range Interpretation Code Description Data [place] rce(s) Supporting Document(s) Glucose [Mass/volume] in Capillary blood by Glucometer 121 mg/dL 70- 140 [facility] ID Date Data Source [id number] 01/01/2020 04:08:44 AM [facility] Value Range Interpretation Code Description Data [place] rce(s) Supporting Document(s) Bicarbonate [Moles/volume] in Serum 27 mmol/L 22-29 [facility] Chloride [Moles/volume] in Serum or Plasma 104 mmol/L 98-107 [facility] Creatinine [Mass/volume] in Serum or Plasma 0.54 mg/dL 0.50-0.90 [facility] Glucose [Mass/volume] in Serum or Plasma 109 mg/dL 70-140 [facility] Potassium [Moles/volume] in Serum or Plasma 4.1 mmol/L 3.4-5.1 [facility] Sodium [Moles/volume] in Serum or Plasma 137 mmol/L 136-145 [facility] Urea nitrogen [Mass/volume] in Serum or Plasma 4 mg/dL 8-23 L [facility] Anion gap 3 in Serum or Plasma 6 mmol/L 8-15 L [facility] Osmolality of Serum or Plasma by calculation 281 mosm/kg 275-300 [facility] Creatinine/Urea nitrogen [Mass Ratio] in Serum or Plasma 7 [facility] Calcium [Mass/volume] in Serum or Plasma 8.0 mg/dL 8.8-10.2 L [facility] Glomerular filtration rate/1.73 sq M pre dicted among non-blacks [Volume Rate/Area] in Serum or Plasma by Creatinine-based formula (MDRD) >6 0 [facility] Glomerular filtration rate/1.73 sq M pre dicted among blacks [Volume Rate/Area] in Serum or Plasma by Creatinine-based formula (MDRD) >60 [facility] ID Date Data Source [id number] 01/01/2020 04:08:44 AM [facility] Name Value Range Interpretation Code Description Data [place] rce(s) Supporting Document(s) Magnesium [Mass/volume] in Serum or Plasma 1.8 mg/dL 1.6-2.4 [facility] ID Date Data Source [id number] 01/01/2020 04:08:44 AM [facility] Value Range Interpretation Code Description Data [place] rce(s) Supporting Document(s) Phosphate [Mass/volume] in Serum or Plasma 3.0 mg/dL 2.5-4.5 [facility] ID Date Data Source [id number] 01/01/2020 10:32:05 AM [facility] Value Range Interpretation Code Description Data [place] rce(s) Supporting Document(s) Leukocytes [#/volume] in Blood by Automated count 13.8 10*3/uL 4-10 H [facility] Erythrocytes [#/volume] in Blood by Automated count 3.73 10*6/uL 4.1- 5.3 L [facility] Hemoglobin [Mass/volume] in Blood 11.2 g/dL 11.5-15.5 [facility] Hematocrit [Volume Fraction] of Blood by Automated count 34.0 % 3 6-45 L [facility] Erythrocyte mean corpuscular volume [Entitic volume] by Auto mated count 91.3 fL 80-96 [facility] Erythrocyte mean corpuscular hemoglobin [Entitic mass] by Automated count 29.9 pg 27-33 [facility] Erythrocyte mean corpuscular hemoglobin concentration [Mass/volume] by Automated count 32.8 g/dL 32.0-36.0 [facility] Erythrocyte distribution width [Ratio] by Automated count 16.6 % 11.5-14.5 H [facility] Platelets [#/volume] in Blood by Automated count 500 10*3/uL 150-400 H [facility] Differential cell count method - Blood [facility] Neutrophils/100 leukocytes in Blood by Automated count 91 % [facility] Lymphocytes/100 leukocytes in Blood by Automated count 4 % [facility] Monocytes/100 leukocytes in Blood by Automated count 4 % [facility] Neutrophils [#/volume] in Blood by Automated count 12.65 10*3/uL 1.8- 7.0 H [facility] Lymphocytes [#/volume] in Blood by Automated count 0.51 10*3/uL 1.2-4 .0 L [facility] Monocytes [#/volume] in Blood by Automated count 0.51 10*3/uL 0-0.8 [facility] Myelocytes/100 leukocytes in Blood by Manual count 1 % [facility] Myelocytes [#/volume] in Blood by Manual count 0.12 10*3/uL 0-0 H [facility] Macrocytes [Presence] in Blood by Light microscopy [facility] ID Date Data Source [id number] 12/31/2019 09:57:58 PM [facility] Name Value Range Interpretation Code Description Data [place] rce(s) Supporting Document(s) Glucose [Mass/volume] in Capillary blood by Glucometer 116 mg/dL 70- 140 [facility] ID Date Data Source [id number] 12/31/2019 09:57:58 PM [facility] Name Value Range Interpretation Code Description Data [place] rce(s) Supporting Document(s) Glucose [Mass/volume] in Capillary blood by Glucometer 111 mg/dL 70- 140 [facility] ID Date Data Source [id number] 12/31/2019 05:48:27 PM [facility] Name Value Range Interpretation Code Description Data [place] rce(s) Supporting Document(s) Glucose [Mass/volume] in Capillary blood by Glucometer 125 mg/dL 70- 140 [facility] ID Date Data Source [id number] 12/31/2019 12:46:45 PM EDT [facility] Name Value Range Interpretation Code Description Data [place] rce(s) Supporting Document(s) Glucose [Mass/volume] in Capillary blood by Glucometer 121 mg/dL 70- 140 [facility] ID Date Data Source [id number] 01/05/2020 10:06:17 AM [facility] Service Cmnt XXX-Imp : [employer] an[employer] XXX Cult : No growth 5 days Name Value Range Interpretation Code Description Data [place] rce(s) Supporting Document(s) ID Date Data Source [id number] 01/05/2020 10:06:17 AM [facility] Service Cmnt XXX-Imp : [employer] n[employer] XXX Cult : No growth 5 days Name Value Range Interpretation Code Description Data [place] rce(s) Supporting Document(s) ID Date Data Source [id number] 12/31/2019 09:00:22 AM [facility] Name Value Range Interpretation Code Description Data [place] rce(s) Supporting Document(s) Glucose [Mass/volume] in Capillary blood by Glucometer 118 mg/dL 70- 140 [facility] ID Date Data Source [id number] 12/31/2019 04:58:44 AM [facility] Name Value Range Interpretation Code Description Data [place] rce(s) Supporting Document(s) Leukocytes [#/volume] in Blood by Automated count 13.6 10*3/uL 4-10 H [facility] Erythrocytes [#/volume] in Blood by Automated count 3.75 10*6/uL 4.1- 5.3 L [facility] Hemoglobin [Mass/volume] in Blood 11.1 g/dL 11.5-15.5 L [facility] Hematocrit [Volume Fraction] of Blood by Automated count 33.9 % 3 6-45 L [facility] Erythrocyte mean corpuscular volume [Entitic volume] by Auto mated count 90.5 fL 80-96 [facility] Erythrocyte mean corpuscular hemoglobin [Entitic mass] by Automated count 29.6 pg 27-33 [facility] Erythrocyte mean corpuscular hemoglobin concentration [Mass/volume] by Automated count 32.7 g/dL 32.0-36.0 [facility] width [Ratio] by Automated count 16.7 % 11.5-14.5 H [facility] Platelets [#/volume] in Blood by Automated count 427 10*3/uL 150-400 H [facility] Differential cell count method - Blood [facility] Neutrophils/100 leukocytes in Blood by Automated count 89 % [facility] Lymphocytes/100 leukocytes in Blood by Automated count 7 % [facility] Monocytes/100 leukocytes in Blood by Automated count 4 % [facility] Eosinophils/100 leukocytes in Blood by Automated count 0 % [facility] Basophils/100 leukocytes in Blood by Automated count 0 % [facility] Neutrophils [#/volume] in Blood by Automated count 12.05 10*3/uL 1.8- 7.0 H [facility] Lymphocytes [#/volume] in Blood by Automated count 0.90 10*3/uL 1.2-4 .0 L [facility] Monocytes [#/volume] in Blood by Automated count 0.58 10*3/uL 0-0.8 [facility] Eosinophils [#/volume] in Blood by Automated count 0.04 10*3/uL 0-0.5 [facility] Basophils [#/volume] in Blood by Automated count 0.02 10*3/uL 0-0.2 [facility] Nucleated erythrocytes/100 leukocytes [Ratio] in Blood by Automated count 0 /100{WBCs} 0-0 [facility] ID Date Data Source [id number] 12/31/2019 05:29:19 AM [facility] Name Value Range Interpretation Code Description Data [place] rce(s) Supporting Document(s) Magnesium [Mass/volume] in Serum or Plasma 1.9 mg/dL 1.6-2.4 [facility] ID Date Data Source [id number] 12/31/2019 05:29:19 AM [facility] Name Value Range Interpretation Code Description Data [place] rce(s) Supporting Document(s) Bicarbonate [Moles/volume] in Serum 24 mmol/L -29 [facility] Chloride [Moles/volume] in Serum or Plasma 102 mmol/L 98-107 [facility] Creatinine [Mass/volume] in Serum or Plasma 0.56 mg/dL 0.50-0.90 [facility] Glucose [Mass/volume] in Serum or Plasma 102 mg/dL 70-140 [facility] Potassium [Moles/volume] in Serum or Plasma 5.1 mmol/L 3.4-5.1 [facility] Hemolyzed Sodium [Moles/volume] in Serum or Plasma 135 mmol/L 136-145 L [facility] Urea nitrogen [Mass/volume] in Serum or Plasma 4 mg/dL 8-23 L [facility] Anion gap 3 in Serum or Plasma 9 mmol/L 8-15 [facility] Osmolality of Serum or Plasma by calculation 278 mosm/kg 275-300 [facility] Creatinine/Urea nitrogen [Mass Ratio] in Serum or Plasma 8 [facility] Calcium [Mass/volume] in Serum or Plasma 8.4 mg/dL 8.8-10.2 L [facility] Glomerular filtration rate/1.73 sq M pre dicted among non-blacks [Volume Rate/Area] in Serum or Plasma by Creatinine-based formula (MDRD) >6 0 [facility] Glomerular filtration rate/1.73 sq M pre dicted among blacks [Volume Rate/Area] in Serum or Plasma by Creatinine-based formula (MDRD) >60 [facility] ID Date Data Source [id number] 12/31/2019 05:29:19 AM [facility] Name Value Range Interpretation Code Description Data [place] rce(s) Supporting Document(s) Phosphate [Mass/volume] in Serum or Plasma 3.3 mg/dL 2.5-4.5 [facility] ID Date Data Source [id number] 12/30/2019 09:24:07 PM [facility] Name Value Range Interpretation Code Description Data [place] rce(s) Supporting Document(s) Glucose [Mass/volume] in Capillary blood by Glucometer 143 mg/dL 70- 140 H [facility] ID Date Data Source [id number] 12/30/2019 05:25:51 PM [facility] XR CHEST FRONTAL ONLY [id number] RESULTI nterpreted by:Amy Maldonado, MDPROCEDURE INFORMATION: Exam: XR Chest, 1 View Exam date and time: 12/30/2019 5:19 PM Age: 74 years old Clinical indication: Salmonella sepsis; Diverticulitis of large intestine with perforation and abscess without bleeding; Altered mental status, unspecified; Other: Verify position of ng tube TECHNIQUE: Imaging protocol: XR of the chest Views: 1 view. COMPARISON: DX XR CHEST FRONTAL ONLY [id number] PORTABLE 12/28/2019 11:56 PM FINDINGS: Tubes, catheters [...] Date Data Source [id number] 12/30/2019 05:01:22 PM [facility] Name Value Range Interpretation Code Description Data [place] rce(s) Supporting Document(s) Glucose [Mass/volume] in Capillary blood by Glucometer 129 mg/dL 70- 140 [facility] ID Date Data Source [id number] 12/30/2019 04:03:10 PM [facility] MR BRAIN WITH AND WITHOUT CONTRAST [id number] FINAL RESULTInterpreted by:Libby Pete MBBSMR BRAIN WITH AND WITHOUT IV CONTRAST [id number] INDICATION: Colonic diverticulosis with abscess. Altered mental [...] rce(s) Supporting Document(s) ID Date Data Source [id number] 12/30/2019 03:22:10 PM T [facility] IR IMAGE GUIDED NEEDLE DRAIN PROCEDUREFI [...] subcutaneously under direct ultrasound guidance. A 10 Lebanese resolve was inserted/trocar into the collection under direct ultrasound guidance. The needle was removed and 10 cc purulent fluid was aspirated. This was sent for culture and sensitivity. The Conner loop was formed within the collection. The drain was attached to a accordion drainage bag. It was secured in place with 2-0 silk suture and stay fix sterile dressing. A final set of axial CT images was made through the pelvis, demonstrating appropriate positioning of drain.IMPRESSION: Ultrasound and CT-guided 10 Lebanese resolve pelvic drain placement as described above. This document has been electronically signed by Jax Carver MD on 12/30/2019 3:19 PM Name Value Range Interpretation Code Description Data [place] rce(s) Supporting Document(s) ID Date Data Source [id number] 12/30/2019 12:54:55 PM [facility] Name Value Range Interpretation Code Description Data [place] rce(s) Supporting Document(s) Glucose [Mass/volume] in Capillary blood by Glucometer 117 mg/dL 70- 140 [facility] ID Date Data Source [id number] 12/30/2019 04:30:51 AM [facility] Name Value Range Interpretation Code Description Data [place] rce(s) Supporting Document(s) Bicarbonate [Moles/volume] in Serum 26 mmol/L 22-29 [facility] Chloride [Moles/volume] in Serum or Plasma 102 mmol/L 98-107 [facility] Creatinine [Mass/volume] in Serum or Plasma 0.58 mg/dL 0.50-0.90 [facility] Glucose [Mass/volume] in Serum or Plasma 109 mg/dL 70-140 [facility] Potassium [Moles/volume] in Serum or Plasma 4.2 mmol/L 3.4-5.1 [facility] Sodium [Moles/volume] in Serum or Plasma 135 mmol/L 136-145 L [facility] Urea nitrogen [Mass/volume] in Serum or Plasma 6 mg/dL 8-23 L [facility] Anion gap 3 in Serum or Plasma 7 mmol/L 8-15 L [facility] Osmolality of Serum or Plasma by calculation 277 mosm/kg 275-300 [facility] Creatinine/Urea nitrogen [Mass Ratio] in Serum or Plasma 10 [facility] Calcium [Mass/volume] in Serum or Plasma 8.6 mg/dL 8.8-10.2 L [facility] Glomerular filtration rate/1.73 sq M pre dicted among non-blacks [Volume Rate/Area] in Serum or Plasma by Creatinine-based formula (MDRD) 90 mL/min/1.73m2 >60 [facility] Glomerular filtration rate/1.73 sq M pre dicted among blacks [Volume Rate/Area] in Serum or Plasma by Creatinine-based formula (MDRD) >60 [facility] ID Date Data Source [id number] 12/30/2019 06:17:08 AM T [facility] Name Value Range Interpretation Code Description Data [place] rce(s) Supporting Document(s) Leukocytes [#/volume] in Blood by Automated count 15.5 10*3/uL 4-10 H [facility] Erythrocytes [#/volume] in Blood by Automated count 3.59 10*6/uL 4.1- 5.3 L [facility] Hemoglobin [Mass/volume] in Blood 10.8 g/dL 11.5-15.5 L [facility] Hematocrit [Volume Fraction] of Blood by Automated count 32.4 % 3 6-45 L [facility] Erythrocyte mean corpuscular volume [Entitic volume] by Auto mated count 90.5 fL 80-96 [facility] Erythrocyte mean corpuscular hemoglobin [Entitic mass] by Automated count 30.1 pg 27-33 [facility] Erythrocyte mean corpuscular hemoglobin concentration [Mass/volume] by Automated count 33.2 g/dL 32.0-36.0 [facility] Ery[facility] distribution width [Ratio] by Automated count 17.1 % 11.5-14.5 H [facility] Platelets [#/volume] in Blood by Automated count 384 10*3/uL 150-400 [facility] Differential cell count method - Blood [facility] Neutrophils/100 leukocytes in Blood by Automated count 91 % [facility] Lymphocytes/100 leukocytes in Blood by Automated count 4 % [facility] Monocytes/100 leukocytes in Blood by Automated count 4 % [facility] Neutrophils [#/volume] in Blood by Automated count 14.20 10*3/uL 1.8- 7.0 H [facility] Lymphocytes [#/volume] in Blood by Automated count 0.57 10*3/uL 1.2-4 .0 L [facility] Monocytes [#/volume] in Blood by Automated count 0.57 10*3/uL 0-0.8 [facility] Variant lymphocytes/100 leukocytes in Blood by Manual count 1 % [facility] Lymphocytes [#/volume] in Blood 0.14 10*3/uL 0 H [facility] Anisocytosis [Presence] in Blood by Light microscopy [facility] ID Date Data Source [id number] 12/30/2019 12:45:24 PM EDT [facility] Name Value Range Interpretation Code Description Data [place] rce(s) Supporting Document(s) Magnesium [Mass/volume] in Serum or Plasma 1.9 mg/dL 1.6-2.4 [facility] ID Date Data Source [id number] 12/30/2019 12:45:24 PM EDT [facility] Name Value Range Interpretation Code Description Data [place] rce(s) Supporting Document(s) Phosphate [Mass/volume] in Serum or Plasma 3.4 mg/dL 2.5-4.5 [facility] ID Date Data Source [id number] 01/02/2020 09:40:01 AM EDT [facility] Service Cmnt XXX-Imp : ABDOMINAL ABSCESS Gram Stn XXX : 4+WBC'S Seen.4+Gram positive cocciin pairs2+Gram positive rods4+Gram negative rodsMicroorganism XXX Cult : One (1) colony ofEscherichia coli3+Actinomyces turicensisOrganism of questionable significance. No further workup of2+Streptococcus gallolyticus ssp pasteurianus Name Value Range Interpretation Code Description Data [place] rce(s) Supporting Document(s) ID Date Data Source [id number] 12/29/2019 02:13:10 PM EDT [facility] Name Value Range Interpretation Code Description Data [place] rce(s) Supporting Document(s) History and Physical [facility] [id number]/RMAwbIRRus8RdIUseERk4CVnvUHBnD9KiFGU7qZ8pINM4VAwARbKxCbDcGRMp [facility] [file] [id number]TJp= ID Date Data Source [id number] 12/29/2019 02:40:32 PM EDT [facility] Name Value Range Interpretation Code Description Data [place] rce(s) Supporting Document(s) Prothrombin time (PT) 18.6 s 12.5-14.9 H [facility] INR in Platelet poor plasma by Coagulation assay 1.53 [facility] Routine intensity oral anticoagulation I NR is typically 2.0-3.0. Target INR must be clinically individualized. ID Date Data Source [id number] 12/29/2019 11:16:24 AM EDT [facility] Name Value Range Interpretation Code Description Data [place] rce(s) Supporting Document(s) History and Physical [facility] [id number]/BRTznBJTyk0JcCNjiYTd3RVldXHXaC5WfEOC7tT2cMXY4BHnBClNkPgEtHYQz lbm [file] ICAgICAgICAgICAgICAgICAgICAgICAgICAgICAgICAgICAgICAgICAgICAgICAgICAgICAgICAgICAg ICAgICAgICAgICAgICAgICAgICAgICAgICAgICAgIC AgICAgICANCiAgICAgICAgICAgICAgICAgICAgICAgICAgICAgICAgICAgICAgICAgICAgICAgICAgIC AgICAgICAgICAgICAgICAgICAgICAgICAgICAgICAgICAgICAgICAgICAgICAgICANCiAgICAgICAgIC AgICAgICAgICAgICAgICAgICAgICAgICAgICAgICAg ICAgICAgICAgICAgICAgICAgICAgICAgICAgICAgICAgICAgICAgICAgICAgICAgICAgICAgICAgICAN CiAgICAgICAgICAgICAgICAgICAgICAgICAgICAgICAgICAgICAgICAgICAgICAgICAgICAgICAgICAg ICAgICAgICAgICAgICAgICAgICAgICAgICAgICAgIC AgICAgICAgICANCiAgICAgICAgICAgICAgICAgICAgICAgICAgICAgICAgICAgICAgICAgICAgICAgIC AgICAgICAgICAgICAgICAgICAgICAgICAgICAgICAgICAgICAgICAgICAgICAgICAgICANCiAgICAgIC AgICAgICAgICAgICAgICAgICAgICAgICAgICAgICAg ICAgICAgICAgICAgICAgICAgICAgICAgICAgICAgICAgICAgICAgICAgICAgICAgICAgICAgICAgICAg ICANCiAgICAgICAgICAgICAgICAgICAgICAgICAgICAgICAgICAgICAgICAgICAgICAgICAgICAgICAg ICAgICAgICAgICAgICAgICAgICAgICAgICAgICAgIC AgICAgICAgICAgICANCiAgICAgICAgICAgICAgICAgICAgICAgICAgICAgICAgICAgICAgICAgICAgIC AgICAgICAgICAgICAgICAgICAgICAgICAgICAgICAgICAgICAgICAgICAgICAgICAgICAgICANCiAgIC AgICAgICAgICAgICAgICAgICAgICAgICAgICAgICAg ICAgICAgICAgICAgICAgICAgICAgICAgICAgICAgICAgICAgICAgICAgICAgICAgICAgICAgICAgICAg ICAgICANCiAgICAgICAgICAgICAgICAgICAgICAgICAgICAgICAgICAgICAgICAgICAgICAgICAgICAg ICAgICAgICAgICAgICAgICAgICAgICAgICAgICAgIC AgICAgICAgICAgICAgICANCjw/oOYeH1tjaYHgmrC5V8laDe8CWn1OJH7xj5IoJXAfAQrhakUsObuBWw PdSUCjNyrQZun4HIdxFV8HxWKeA5FtW2GoHRvkYM5TPWFsPZGbjWMyCYBzPLBlIrA3KCFrPMwtFV5LdF MlEUgmGRTxWKLfVyLlXGIoLLZmTIAbQJ9GPAUvA751 jiMsZg9ZLt4TIuRwUN1xkr5IYvRbAIPfVngGDjy5EUbiZM5WsNHhhTFnKkFwZSZJLoUhP0oyd5UnExva MPCLLUptBZ5Bj2NxoZIpESz+Pm3NTX4wn8DiDCdjNsQbXN8yfa9IGAdAXhHbO7BnrThpAIulNWWjiOWE FTZ1LZYCoPUwyFaoWESLEjIYDNJ0KKKbSaC4NmSqXy GpKLR6VQAmIT5qIJlaKO0CXAI3UOggVCJwMMQnR8qRWzUgXBIyFuJetYveUC4LBjPpJ9IsiqBgwEPhGz AwIFINCj4+CCiyrkPjNyfXGpP8OKOsq7VgQSc1WO4OQCBtUHywHH3WEYBovJ5nMLqnBA9RLaGhXADcON YLZjFdN33flCTsOLk3A0WiEkIjNRNwDgmpPXNtZLhg TmFtZXMgWyBdDQogID4+ID4+JNdpGI7TKTeomiXrJMAxZt7UIOYiHYVeXY5nGYQqJKIsO3D9lUjjBBFP XvTxA8vqsjdaCT2cQUDcH531oCgjrtIpSKP2GYMuXa8HTZGhVGQ5NOGuzERrHbVeRSUWLAdeCR2RpSVw LLP0rE5mOYbnOSCxZZUbL0xERgQjmUkzHJ43dIuraa VsbCBdDQo+Td0SHA1hr5PrSDk0wpTpAIolATQ6EBrqOJXqTTNnIVBcHLO1BZU7ZNODLzSlQEVoYYOnIX vkJNYnRHQmkm3CGCOjJCIrRKxcYjJoGRDkHONdIJzeLOOhYMO7CZtlULLgBUHrCH2SCzKpOGCwYVLiZB qnTTOjNWUdqy3CRIXvTGEaUqebBpBwGRQrFQRqXRsv CBViLMWdBDZ3DJDdICIhOB3IZkLzCABlUYIhFecaXEXxEIWvjk4QPRWaUYSpAzV8KcGtLFBlBZDxOAgd YRBrNMC9Nhs7JBOlXNQqZT4WHgTxLGHhLTn7FUlvBMAvHFReof8YWOCySNVrJRF1AQPmKOIpDVYkVQch TAMsMJA6BkV1HYCnUNZuYY0DZzHxKXMzLTg1PjhaAY JpDHLxia3KYDGpMESqTMb9INMsAQKoVPPcNMitHFQhSWDuJXhaVKSyQRQaMY8LTyBsLTFeDZQzFkwzUS HfQBGplo0TSOAnKTAiTrVuEDThXFElIDLcKMhkVVVxWGMaGrF6UDSpSELnKK0SAvJeJAQnZRT5JOtbGU VkIUSzxg9TLBGlNIHpMmfgCyLlKSYoLWXmJNilXNDd HKJ0UnZiNZCzLLCwMP3AYjAtHPTdIrI3HsPvJNBmPMGcox7XLIBwMFSrKWE6ILWrUHCsEHAnSNmwDLFv FIF1NOS0VYCzXKCcYH2GArDjKSYvYeCvSjUfGNGbMLFbef6WLTPxLTAqDdW0LjRlDRDwKSYfEZpgOXUs VWN7HpDkHKRdAHKzKU8DEeTuRTWxJqY6GKQqTYRiFR Lerh2PsVKysNbqzm6POGoEFs9YyDpqUPW5RGraQb8fgFBmQFApXSODTy4UwjJlXFMxBQIVRZnqYACjKU NeNQrbKgS7WBbyI0E5N3BrPUHqRHGcCwnsARQ8NkWeCpW1ILAgZJWmVbt1DWRlJuO8I6T8IZA8ZrGiRE NhMjRiNDA+SQ6xQFp+Ig5Yn8UcboX3feVqSGzlTmNeJn3YZMPBD6HJQb== ID Date Data Source [id number] 12/29/2019 05:50:41 AM EDT [facility] CT ABDOMEN PELVIS WITH CONTRAST [id number] AL RESULTInterpreted by:Nila Negrete, MDPROCEDURE INFORMATION: Exam: [...] CR XR ABDOMEN AP ABD SUPINE ONLY [id number] PORTABLE 12/28/2019 8:48 PM FINDINGS: Tubes, catheters [...] rce(s) Supporting Document(s) ID Date Data Source [id number] 12/29/2019 04:36:13 AM [facility] Name Value Range Interpretation Code Description Data [place] rce(s) Supporting Document(s) Leukocytes [#/volume] in Blood by Automated count 19.8 10*3/uL 4-10 H [facility] Erythrocytes [#/volume] in Blood by Automated count 3.88 10*6/uL 4.1- 5.3 L [facility] Hemoglobin [Mass/volume] in Blood 11.5 g/dL 11.5-15.5 [facility] Hematocrit [Volume Fraction] of Blood by Automated count 35.1 % 3 6-45 L [facility] Erythrocyte mean corpuscular volume [Entitic volume] by Auto mated count 90.4 fL 80-96 [facility] Erythrocyte mean corpuscular hemoglobin [Entitic mass] by Automated count 29.7 pg 27-33 [facility] Erythrocyte mean corpuscular hemoglobin concentration [Mass/volume] by Automated count 32.9 g/dL 32.0-36.0 [facility] width [Ratio] by Automated count 17.1 % 11.5-14.5 H [facility] Platelets [#/volume] in Blood by Automated count 361 10*3/uL 150-400 [facility] Differential cell count method - Blood [facility] Neutrophils/100 leukocytes in Blood by Automated count 94 % [facility] Lymphocytes/100 leukocytes in Blood by Automated count 3 % [facility] Monocytes/100 leukocytes in Blood by Automated count 3 % [facility] Eosinophils/100 leukocytes in Blood by Automated count 0 % [facility] Basophils/100 leukocytes in Blood by Automated count 0 % [facility] Neutrophils [#/volume] in Blood by Automated count 18.62 10*3/uL 1.8- 7.0 H [facility] Lymphocytes [#/volume] in Blood by Automated count 0.62 10*3/uL 1.2-4 .0 L [facility] Monocytes [#/volume] in Blood by Automated count 0.53 10*3/uL 0-0.8 [facility] Eosinophils [#/volume] in Blood by Automated count 0.03 10*3/uL 0-0.5 [facility] Basophils [#/volume] in Blood by Automated count 0.02 10*3/uL 0-0.2 [facility] Nucleated erythrocytes/100 leukocytes [Ratio] in Blood by Automated count 0 /100{WBCs} 0-0 [facility] ID Date Data Source [id number] 12/29/2019 04:51:50 AM EDT [facility] Name Value Range Interpretation Code Description Data [place] rce(s) Supporting Document(s) Bicarbonate [Moles/volume] in Serum 22 mmol/L 22-29 [facility] Chloride [Moles/volume] in Serum or Plasma 102 mmol/L 98-107 [facility] Creatinine [Mass/volume] in Serum or Plasma 0.65 mg/dL 0.50-0.90 [facility] Glucose [Mass/volume] in Serum or Plasma 112 mg/dL 70-140 [facility] Potassium [Moles/volume] in Serum or Plasma 4.4 mmol/L 3.4-5.1 [facility] Sodium [Moles/volume] in Serum or Plasma 136 mmol/L 136-145 [facility] Urea nitrogen [Mass/volume] in Serum or Plasma 14 mg/dL 8-23 [facility] Anion gap 3 in Serum or Plasma 12 mmol/L 8-15 [facility] Osmolality of Serum or Plasma by calculation 283 mosm/kg 275-300 [facility] Creatinine/Urea nitrogen [Mass Ratio] in Serum or Plasma 21 [facility] Calcium [Mass/volume] in Serum or Plasma 9.0 mg/dL 8.8-10.2 [facility] Glomerular filtration rate/1.73 sq M pre dicted among non-blacks [Volume Rate/Area] in Serum or Plasma by Creatinine-based formula (MDRD) 86 mL/min/1.73m2 >60 [facility] Glomerular filtration rate/1.73 sq M pre dicted among blacks [Volume Rate/Area] in Serum or Plasma by Creatinine-based formula (MDRD) >60 [facility] ID Date Data Source [id number] 12/29/2019 01:32:52 AM [facility] Name Value Range Interpretation Code Description Data [place] rce(s) Supporting Document(s) Glucose [Mass/volume] in Capillary blood by Glucometer 129 mg/dL 70- 140 [facility] ID Date Data Source [id number] 12/29/2019 01:20:13 AM [facility] XR CHEST FRONTAL ONLY [id number] RESULTI nterpreted by:MEI Sierra INFORMATION: Exam: XR Chest, 1 View Exam date and time: 12/29/2019 12:10 AM Age: 74 years old Clinical indication: Salmonella sepsis; Diverticulitis of large intestine with perforation and abscess without bleeding; Other: Ng tube placement TECHNIQUE: Imaging protocol: XR of the chest Views: 1 view. COMPARISON: CR XR CHEST FRONTAL ONLY [id number] PORTABLE 12/28/2019 4:09 PM FINDINGS: Tubes, catheters [...] rce(s) Supporting Document(s) ID Date Data Source [id number] 12/28/2019 09:23:14 PM [facility] XR ABDOMEN AP ABD SUPINE ONLY [id number] RESULTInterpreted by:BEHZAD JayROCEDDUYEN INFORMATION: Exam: XR Abdomen, 1 View Exam date and time: 12/28/2019 9:01 PM Age: 74 years old Clinical indication: Salmonella sepsis; Diverticulitis of large intestine with perforation and abscess without bleeding; Other: Assess for ng tube place TECHNIQUE: Imaging protocol: XR of the abdomen. Views: Frontal supine view of the abdomen. 1 View. COMPARISON: DX XR ABDOMEN AP ERECT ONLY [id number] PORTABLE 12/26/2019 4:33 PM FINDINGS: Tubes, catheters [...] rce(s) Supporting Document(s) ID Date Data Source [id number] 12/28/2019 04:40:23 PM EDT [facility] XR CHEST FRONTAL ONLY [id number] RESULTI nterpreted by:BEHZAD AveryROCEDURE INFORMATION: Exam: XR Chest, 1 View Exam date and time: 12/28/2019 4:22 PM Age: 74 years old Clinical indication: Salmonella sepsis; Diverticulitis of large intestine with perforation and abscess without bleeding; Other: Confirmation of ng-tube placement TECHNIQUE: Imaging protocol: XR of the chest Views: 1 view. COMPARISON: CR XR CHEST FRONTAL ONLY [id number] PORTABLE 12/26/2019 9:46 AM FINDINGS: Tubes, catheters [...] rce(s) Supporting Document(s) ID Date Data Source [id number] 12/28/2019 03:30:04 PM EDT [facility] XR FOOT AP AND LATERAL [id number] RESULT Interpreted by:Jerad Farr MDINDICATION: Evaluation of right toe ulcer, concern [...] rce(s) Supporting Document(s) ID Date Data Source [id number] 12/28/2019 02:06:00 PM [facility] Name Value Range Interpretation Code Description Data [facility] rce(s) Supporting Document(s) [facility] WBVFZd2bVwSDEiLl93/SCDadORFnl0VfWUpwYZq6GPimDLQwL8FcIVH2bN5lJZP9LLeILjVvQxOoOYZ5 m [file] [id number]+RIefnBZtnEbsLEHANhE5Him9BWevZLHXNc9M ID Date Data Source [id number] 12/28/2019 01:52:11 PM [facility] IR IMAGE GUIDED NEEDLE DRAIN PROCEDUREFI NAL RESULTInterpreted by:Leandro Trevino MBBSEXAM: IR IMAGE GUIDED NEEDLE DRAIN PROCEDURE, 12/26/2019COMPARISON: CT abdomen pelvis dated 12/25/2019 from [facility].CLINICAL INDICATIONS: 74-year-old female with history [...] were exchanged over the wire. A 12 Lebanese Resolve drain was then placed over the [...] IMPRESSION:1. Successful placement of drain into 12 Lebanese drain into the pelvic abscess. This document has been electronically signed by Eran Jules MD on 12/28/2019 1:50 PM Name Value Range Interpretation Code Description Data [place] rce(s) Supporting Document(s) ID Date Data Source [id number] 12/28/2019 05:39:30 AM [facility] Name Value Range Interpretation Code Description Data [place] rce(s) Supporting Document(s) Bicarbonate [Moles/volume] in Serum 23 mmol/L 22-29 [facility] Chloride [Moles/volume] in Serum or Plasma 108 mmol/L 98-107 H [facility] Creatinine [Mass/volume] in Serum or Plasma 0.65 mg/dL 0.50-0.90 [facility] Glucose [Mass/volume] in Serum or Plasma 100 mg/dL 70-140 [facility] Potassium [Moles/volume] in Serum or Plasma 4.1 mmol/L 3.4-5.1 [facility] Sodium [Moles/volume] in Serum or Plasma 139 mmol/L 136-145 [facility] Urea nitrogen [Mass/volume] in Serum or Plasma 19 mg/dL 8-23 [facility] Anion gap 3 in Serum or Plasma 8 mmol/L 8-15 [facility] Osmolality of Serum or Plasma by calculation 290 mosm/kg 275-300 [facility] Creatinine/Urea nitrogen [Mass Ratio] in Serum or Plasma 29 [facility] Calcium [Mass/volume] in Serum or Plasma 8.0 mg/dL 8.8-10.2 L [facility] Glomerular filtration rate/1.73 sq M pre dicted among non-blacks [Volume Rate/Area] in Serum or Plasma by Creatinine-based formula (MDRD) 86 mL/min/1.73m2 >60 [facility] Glomerular filtration rate/1.73 sq M pre dicted among blacks [Volume Rate/Area] in Serum or Plasma by Creatinine-based formula (MDRD) >60 [facility] ID Date Data Source [id number] 12/28/2019 06:13:21 AM EDT [facility] Name Value Range Interpretation Code Description Data [place] rce(s) Supporting Document(s) Leukocytes [#/volume] in Blood by Automated count 16.1 10*3/uL 4-10 H [facility] Erythrocytes [#/volume] in Blood by Automated count 3.86 10*6/uL 4.1- 5.3 [facility] Hemoglobin [Mass/volume] in Blood 11.4 g/dL 11.5-15.5 [facility] Hematocrit [Volume Fraction] of Blood by Automated count 34.7 % 3 6-45 [facility] Erythrocyte mean corpuscular volume [Entitic volume] by Auto mated count 90.0 fL 80-96 [facility] Erythrocyte mean corpuscular hemoglobin [Entitic mass] by Automated count 29.6 pg 27-33 [facility] Erythrocyte mean corpuscular hemoglobin concentration [Mass/volume] by Automated count 32.9 g/dL 32.0-36.0 [facility] Erythrocyte distribution width [Ratio] by Automated count 17.3 % 11.5-14.5 H [facility] Platelets [#/volume] in Blood by Automated count 310 10*3/uL 150-400 [facility] Differential cell count method - Blood [facility] Neutrophils/100 leukocytes in Blood by Automated count 90 % [facility] Lymphocytes/100 leukocytes in Blood by Automated count 2 % [facility] Monocytes/100 leukocytes in Blood by Automated count 6 % [facility] Eosinophils/100 leukocytes in Blood by Automated count 1 % [facility] Basophils/100 leukocytes in Blood by Automated count 1 % [facility] Neutrophils [#/volume] in Blood by Automated count 14.60 10*3/uL 1.8- 7.0 H [facility] Lymphocytes [#/volume] in Blood by Automated count 0.31 10*3/uL 1.2-4 .0 L [facility] Monocytes [#/volume] in Blood by Automated count 0.90 10*3/uL 0-0.8 H [facility] Eosinophils [#/volume] in Blood by Automated count 0.14 10*3/uL 0-0.5 [facility] Basophils [#/volume] in Blood by Automated count 0.14 10*3/uL 0-0.2 [facility] Anisocytosis [Presence] in Blood by Light microscopy [facility] Poikilocytosis [Presence] in Blood by Light microscopy [facility] [place] cells [Presence] in Blood by Light microscopy [facility] ID Date Data Source [id number] 12/27/2019 10:12:55 PM T [facility] Name Value Range Interpretation Code Description Data [place] rce(s) Supporting Document(s) [facility] CRKGVa7rTdSKEmGa20/GCShfRSOor7SiFZqsUQu4VCtbXJWaJ6RlYGY9fH0kEDK2SSeKNwPiIjDtGNX5 [facility] [file] ICAgICAgICAgICAgICAgICAgICAgICAgICAgICAgICAgICAgICAgICAgICAgICAgICAgICAgICAgICAg ICAgICAgICAgICAgICAgICANCiAgICAgICAgICAgICAgICAgICAgICAgICAgICAgICAgICAgICAgICAg ICAgICAgICAgICAgICAgICAgICAgICAgICAgICAgIC AgICAgICAgICAgICAgICAgICAgICAgICAgICANCiAgICAgICAgICAgICAgICAgICAgICAgICAgICAgIC AgICAgICAgICAgICAgICAgICAgICAgICAgICAgICAgICAgICAgICAgICAgICAgICAgICAgICAgICAgIC AgICAgICAgICANCiAgICAgICAgICAgICAgICAgICAg ICAgICAgICAgICAgICAgICAgICAgICAgICAgICAgICAgICAgICAgICAgICAgICAgICAgICAgICAgICAg ICAgICAgICAgICAgICAgICAgICANCiAgICAgICAgICAgICAgICAgICAgICAgICAgICAgICAgICAgICAg ICAgICAgICAgICAgICAgICAgICAgICAgICAgICAgIC AgICAgICAgICAgICAgICAgICAgICAgICAgICAgICANCiAgICAgICAgICAgICAgICAgICAgICAgICAgIC AgICAgICAgICAgICAgICAgICAgICAgICAgICAgICAgICAgICAgICAgICAgICAgICAgICAgICAgICAgIC AgICAgICAgICAgICANCiAgICAgICAgICAgICAgICAg ICAgICAgICAgICAgICAgICAgICAgICAgICAgICAgICAgICAgICAgICAgICAgICAgICAgICAgICAgICAg ICAgICAgICAgICAgICAgICAgICAgICANCiAgICAgICAgICAgICAgICAgICAgICAgICAgICAgICAgICAg ICAgICAgICAgICAgICAgICAgICAgICAgICAgICAgIC AgICAgICAgICAgICAgICAgICAgICAgICAgICAgICAgICANCiAgICAgICAgICAgICAgICAgICAgICAgIC AgICAgICAgICAgICAgICAgICAgICAgICAgICAgICAgICAgICAgICAgICAgICAgICAgICAgICAgICAgIC AgICAgICAgICAgICAgICANCiAgICAgICAgICAgICAg ICAgICAgICAgICAgICAgICAgICAgICAgICAgICAgICAgICAgICAgICAgICAgICAgICAgICAgICAgICAg ICAgICAgICAgICAgICAgICAgICAgICAgICANCjw/kNDnH6wduNSembS1J5mjZs8ZEo0OLD7sq2BhSESp XQvwaiXiYgqINyInGGWhKvxFYjj5UShyDC7UqKPtS4 LlN8GpUWgoXF2VNCNqVJPgcGCgGLWfNTAcRjN7BDIoQDouGH3WnXPrFDxwMRZfQNIyTiFyMRGwHDKwYU PhRJAqZDZUNXIqFLTnDzAfKAPsJYTaUZelFEGGEIH6GWLsFyIwVUqlWQ7Hi3AeaKQ4GLd+Do3CIX9se8 NvAVwsTPEmET7zsm0JFCwGScMoU6SumkH8VYZeIQPr Oj6VWTImNHXybZD4BUDeMIFXCbBtP4BygY68EGZTUe7+WKxjsiPbNohRZsRpLUEkr7MoNWa0ZG5RSWRf NDp4aWSqK16vk0SosQEbDzswB6AgaXtqzypmZOpoC2ymMDJcQBLEHOSheSKcKW8yEK0gLJTaMYS2LqW5 VMYLLS5JIBZgMSInjLJtAIAiVXKTWI6RREshOOY0PB SlxtEovBMtGIeyMT8OAWIyicRuQeetLNLCQLu+Cj5NTI9hr6ZdFLj4PLIxKC1nvq0HMBvNBfTzH0T9uX TlO8L4FChlDz4BAWWjOFVlGnhkPHDJDSvuLI1EAU2lzlW6II0WyYJbNVQwJQKkxTUlZNw9O73mtBJxBA fhHA9EIYD+Scarlett+Qd9USZEyBXNiBEIgRpOpQMWACqEa F7IsH2CDz1XyC5RcIE87xXdmedPlGAvxSB6VDE7yXBLhQGKZDO9PcQAxjC2espLyQWJcLXBRQrXbV08a rTMfWNGfALF4AIYgWd5WOMLpK0EgjnNerVkaocAvRLCzZUMTAH9COGttpiYvvXJyvSsuDB38rUhoPE3B Af1WBzEsEW4wkc2SnIJhYb4XKXR8Tw0EMCPtLVFbJJ OxCGW0LPRoBmXrQHypXFAyBNCiFYP1KEZmBVVcMP9WLiIxOPRlZJOeHVKsOUWxYFWces9BIKKqJMN2JX A9RUBkUDBvHFDxAYmvUFMeTPMiMXB4VHClNYLwHY7WWqTwYQPeGYH5TAFzCFNwFXTxxl5REDXiLNZyJY UxASSmMYQpYWSkDFgyPEErWUT3KVX4KAYgNCRySE3H AuXvLZAdGOytFcnuFSDqQATknv3OJFRtVGFzXKFhCbHbTMBdWTHeJKntXCJoVLNxLyZkAIEnIUUqCY7P ZcVoMAKnSXC7DXSeXIYtVONqyg3SFYTuJUHpKlu1IXVtBGHqUPSbJNzmLBNbIGV4YhjpWIFqTUFrIB4K XzUsHGOxVTC5LHjhZDTjHTCdjb3CGXZyGPCkHAWkZW XlHNUlBNLuSNadMMUqLNH6SuF5WPUmTINnVD4ZXfQySBYvZsVhRzylQZCyZSYkfi6BWLKoWWXaLfG0TV ZeOLNsMBAbHOwsHKFbNXQ5SAArSZAzXKTvMJ6JWhIyMDOyFjP5ARXoDKQeKOMdlq9LETMsRZMeRBNkUe QrKJVuZUEuNKcnWOPvFIH6WWMrNXOtUKDhPU9VUcRk ZQQyVzB6HJAzEPJdXUUnwg3XSRQmAOGcFpd9VHEgECUvJKGoMDjwXEZkFVR0MSD9PQEuJMOoEJ4FKsQh ENIqPnkhLAJrFNIiRMUlll6AYQRcOSGjJIKfHPZcYVVhXJImCJukVPIlTXQ6QRTcQLJpKQWtHK1XBrLr CQLvDps5YIJmXLLbKWFbgx5DKJWtOCK7IQH4DSLaMD OmEXYeCLerYXLcKHYoEfw5KEWvDPMqEJ0SPtQqRLQlDSR4SNpmMXSdRNLxxe4YNNYjILA7WIuiXrOdTY HcPKIkCPufIYGvAVUfFYujFIIdWVRdIB5PLhKgOSTaPPQ4ZfBuYNAgLZMxrj6PNFHcQEJ6AfXqGIRkYM WoLZFfQLscMSHjMZCaXcvhNQJuANAaXB5GBoZpVDTa RPS0XqLdCWToJAAjaw1JVHWfFEM3OWXjXJWlRTFvKEZmSRkyOQAwTOB3HeelLCLlPEYxZK6TUlBrODLa DXC3QvrfUMBzZFDlij0DpMIevXyire4ZZYmNAs7MdGsiLXJwHFrvVw5alFJ6UMUcYFFPWa8XvaPgDNTh EQLOHMjhQTPnXQfzXHCiGTD0UCX0BXdtLPO1Aoe0MG Q4GsWuNYA5Irc2ZcV3VFU8OzLdLDmoAjWhMMF8XYthHBj2KSE7TPWyDCTeLeY+VD0tBWi+Rg5Sj3Cwwo L0arZjSRl5DAD9Kc7QVKHUD4CYMe== ID Date Data Source [id number] 12/27/2019 07:32:58 PM EDT [facility] Name Value Range Interpretation Code Description Data [place] e(s) Supporting Document(s) Bicarbonate [Moles/volume] in Serum 20 mmol/L 22-29 L [facility] Chloride [Moles/volume] in Serum or Plasma 105 mmol/L 98-107 [facility] Creatinine [Mass/volume] in Serum or Plasma 0.65 mg/dL 0.50-0.90 [facility] Glucose [Mass/volume] in Serum or Plasma 120 mg/dL 70-140 [facility] Potassium [Moles/volume] in Serum or Plasma 4.2 mmol/L 3.4-5.1 [facility] Sodium [Moles/volume] in Serum or Plasma 136 mmol/L 136-145 [facility] Urea nitrogen [Mass/volume] in Serum or Plasma 20 mg/dL 8-23 [facility] Anion gap 3 in Serum or Plasma 11 mmol/L 8-15 [facility] Osmolality of Serum or Plasma by calculation 286 mosm/kg 275-300 [facility] Creatinine/Urea nitrogen [Mass Ratio] in Serum or Plasma 31 [facility] Calcium [Mass/volume] in Serum or Plasma 8.0 mg/dL 8.8-10.2 L [facility] Glomerular filtration rate/1.73 sq M pre dicted among non-blacks [Volume Rate/Area] in Serum or Plasma by Creatinine-based formula (MDRD) 86 mL/min/1.73m2 >60 [facility] Glomerular filtration rate/1.73 sq M pre dicted among blacks [Volume Rate/Area] in Serum or Plasma by Creatinine-based formula (MDRD) >60 [facility] ID Date Data Source [id number] 12/27/2019 12:06:15 PM EDT [facility] Name Value Range Interpretation Code Description Data [place] e(s) Supporting Document(s) Consultation [facility] ADIUWm0fHeUDZyQf77/OHDhkJACfw2OhOMbqGCw3VOqmEYAyH5YhGKX4yT3mGKC6NVcEKhTuMsSxCLU5 m [file] 3KR28JBBguAxkDZo7MHyQWvCAhIzaVdukFIxmi7ntXSniyQKh+559+Luis M/hqheon79riUUx0wGjxhufR [file] ICAgICAgICAgICAgICAgICAgICAgICAgICAgICAgIC AgICAgICAgICAgICAgICAgICAgICAgICAgICAgICAgICAgICAgICAgICAgICAgICAgICAgICAgICAgIC AgICAgICANCiAgICAgICAgICAgICAgICAgICAgICAgICAgICAgICAgICAgICAgICAgICAgICAgICAgIC AgICAgICAgICAgICAgICAgICAgICAgICAgICAgICAg ICAgICAgICAgICAgICAgICANCiAgICAgICAgICAgICAgICAgICAgICAgICAgICAgICAgICAgICAgICAg ICAgICAgICAgICAgICAgICAgICAgICAgICAgICAgICAgICAgICAgICAgICAgICAgICAgICAgICAgICAN CiAgICAgICAgICAgICAgICAgICAgICAgICAgICAgIC AgICAgICAgICAgICAgICAgICAgICAgICAgICAgICAgICAgICAgICAgICAgICAgICAgICAgICAgICAgIC AgICAgICAgICANCiAgICAgICAgICAgICAgICAgICAgICAgICAgICAgICAgICAgICAgICAgICAgICAgIC AgICAgICAgICAgICAgICAgICAgICAgICAgICAgICAg ICAgICAgICAgICAgICAgICAgICANCiAgICAgICAgICAgICAgICAgICAgICAgICAgICAgICAgICAgICAg ICAgICAgICAgICAgICAgICAgICAgICAgICAgICAgICAgICAgICAgICAgICAgICAgICAgICAgICAgICAg ICANCiAgICAgICAgICAgICAgICAgICAgICAgICAgIC AgICAgICAgICAgICAgICAgICAgICAgICAgICAgICAgICAgICAgICAgICAgICAgICAgICAgICAgICAgIC AgICAgICAgICAgICANCiAgICAgICAgICAgICAgICAgICAgICAgICAgICAgICAgICAgICAgICAgICAgIC AgICAgICAgICAgICAgICAgICAgICAgICAgICAgICAg ICAgICAgICAgICAgICAgICAgICAgICANCiAgICAgICAgICAgICAgICAgICAgICAgICAgICAgICAgICAg ICAgICAgICAgICAgICAgICAgICAgICAgICAgICAgICAgICAgICAgICAgICAgICAgICAgICAgICAgICAg ICAgICANCiAgICAgICAgICAgICAgICAgICAgICAgIC AgICAgICAgICAgICAgICAgICAgICAgICAgICAgICAgICAgICAgICAgICAgICAgICAgICAgICAgICAgIC AgICAgICAgICAgICAgICANCjw/nSHwJ1yncNIovfV8E5egOl3UDw6BLW6al2QyRUCmNLhutwFcBtlEDi AaEYIeSydSGpd2AKvfFJ7MtQHmV3EpX7ZwBDkqTF1I AKTwSHGxeDLdMWAbMCHcVzL0MLEdAYpxAD7YmREbFIseQYEjHHIpSbLnAHJeDCMzCRReJCEdMWTVLZOt QSDaThBiOLUgLCZnCH9PXTNfF904mbOpXb8HXv9SYpRyFS5qie0CVpAaFNNgSgkTHms4WHutMT4ElDNf lCOiEbVaHIKZUbDpA5rvw0HxPuGvWDAHKTjmRH9Qz6 VudCAxDQo+Fk4IPB8pz6TsSRzuLrNzDE6gkn2XBGtHPiLkJ5ZscJltFSWhzgU6zEXfYOD1HZVqkvmlLO VjZ3CiLLPsXHS6EIVYDGJxdOEtZK9kAz1rJFGxHJL9BzN6JVXAFM0SDQBpVQFfxBPhXSMjLEBDER3SAN xiXJB5KWZkfqRcnJCxOYmjMM2LXDVdnhZuMsLzDEWB DQo+Db8KBE1yf0MdFXavSLRxEJ7wrg1XCJoTWzRfC8L4dTUwU6Q6SRllZb3LASIdBRVwMhGcOZCMSBmx SX6NWU3mfzD3RL9PgDJuAWLkGRWlzRQbDQy2J39jpGWfIKvqTD6VIFG+Scarlett+Px7NBPKlDBHqBHBwPeNl PGNIGwNzS7RoX8MMh6PiB9UbGX44dFhdmoGxXKcqEE 9YUZ5hECSpADGHKO2ArBGraB0nrrMiMyOdYLZSQiTrV56fnUMjZUIuAMRzPXRbNr5AYUIlL5TwjlWvhY oxgjAxSHJcDRRZCM0GLJklrxMtxQOvpBmzLG95dKznVB0IBl1BNsTeJW7zkm7BoKAfJv5BFJUrFN7JTG IeAGQaMMFsBJL5DVEwMoLjVHwaNMOuEDSsLTA2OPHf WNSoWK2WEgKvKXJaBTX5IZUxKGMcGULrbu9OEOWyEUR3NwH4LWJvFUVfGMUyOZtpVARqNLKyTRV7BUUm VPQsIL5ZAaJaGKBvXNX3LDJkIWUdSEOaay9XDMWzDJWuCLx0OTBvQSYdNBUkFOufAHJpJSN1EGOhNHWe FXQzVS2CVmBqIWRzKLbqLEoiZPLuXOOyhj6DHGGkME SeUTB7QBMhYVXeGCCiVQxmUQAvFHPdCDhmSBQkERIiOI4LWxTnOGRbVTQoRDQxQHLkSOPhfq0PXVIvOB KqXTBaUGByBYPiUDLtWHioQVVsNMZ0ZIf1BKMpFEPzKY0MNrKwRYXrKPi8SNLuFBUeQRGnlb7YKLQzDW KhKPObHGMwPFHaGJKeIDfxABKgJYR0VwNiCWAaVTIb EA5CTbUvDPMyQHn1XRUkJWAoJXEtdj0IEODvBGHiHUi1VgOsBZHgOYVlHZqbHPNnZYH9MICwFKKxFNTp YU9YIgOmFGHpNgF6GFvpHNRbZQDyeb6NDNNnIBQnWYBfNFEbTVTeBDPhENmcMMBjEVOdJlZ3EREyDJEu VJ0PMiUhNZZuQuFlDsqaHRWrBUCczv0HVKXlBEFtDe J8XtYwIDNrEYUqJUprIKBqKGLtLjG8ZLPuROHxYR1DPkYzVZYgTih6BMzeRMZvWGMnkm8PPLMwBIM9AJ X5FsAbKQIsJWOxFXlkEMRrRFMwVAW4VDZmKZEuMX2YLlRbTVVaQYL1IFhsEXHrEWWlwa7HDZItNLY0KH beTGJpJKMcDSWzYTvlXYRjWFAsMvKbQZKiHUAdLG5P CyPhMRKfLVF5DnTcMNPoZCHeoz6GJNHjPLS9Axs3LuQuEHVrEOQhIBhdBRJaWGAiXNWqGXZzVWHoAD7L DkHqCAntKQBAHyy0EDkeE3v1UDAiPZ2PM9Mtk5FlExNsZCJBMRayJK4johPpDLEwJo7JX2nTYpyqSIL3 LtS9LDVrNIBpRaBtU8PuFDSrMQsrIuB2PHQyNQ9aWP G9ViiqEsO9MDP3KKHjKVXyZPAwGMK1AlGwUaP8DlF5HvTbXS5CIa1BLuL7REW0vUXtIx6IENKhTMBFPz NpYG5LDCh= ID Date Data Source [id number] 12/27/2019 10:24:45 AM EDT [facility] Name Value Range Interpretation Code Description Data [place] rce(s) Supporting Document(s) [facility] TUMUQr8yWwDNJrFzz1TnZyVeJOTkQK4ztxk0I4U5bIEkO7BfcTYia4aaG9AuI9CaPWEwLRPZBL7SqXAo jb2 [file] SK82nSMFwOryee3zngdwB5RLTnp8PgwSa79kfrH+Mike/N1u+kL48m74u/8Ci0VwVbfvgSoGcMA8+042/a E+zR5bv7+bYCwnfIWz6rk9+/LupgQlQ70/foZCD3OZ VDNyADNerGvTeQF06egKSiPB/HLFqgPzfxyB8BrbPHG2etb5izqEegvXOIQ+scow captain+yzqbWRC8nucmriOT [file] 53Il7Mb67c+/u1It6u8/x3os9J63tW7sKm6/wmUM7W 14nsW1/6b0591cRJ301FzAuznQt2A/qFxL3TmvVk52O+yKfeURKucb/h6nEyVDYotP+OfUYc+8htgK59 A7+WwrYv7svkZnazN23IeRf9lgA0Sl7zdZB/44xp8rf77sn3e77iI+fWV+PkbGf+iuWkm7w41PT/893s KGeg/Z9m4gHY/atNFjqqg8W/pYRr3M+5K52C9s/C+1 1Y1qlsC2tqoI+4D39e/dh/9WP/rdx3wxcXq+L+IO5bUJ7a9H7eM4vc83mIIvm2sVFM8kd8Hdt5/s4fdz g5vfwp6+vd78cMf7/w17790slXpf82/uXAgzv41/NOG3/rPfPRThp/ryfKP/20yYABBdlCSUvkD9aprl dUncGnN02+vbyq65biogRYkZYJ1+uazm/Er/Ts4Vc7 TfwtP16/9Rqq40DA/X02J78cZ6gbZ0dvFZ/rm3V/vf6/p7MrA3FD6nqdiqt07034Lcvd0+ZXLr+o/+56 I52xsle5Bal/6uQr1geHp4P2SwgmlwAlH/x+eh3ZaC4hU8rinchr57segiV2hcaLNCsQ4Afkh2ag+9uX C71vn6lzM311IR75gGX8+VXb8/LO/t7ChA522ihj/+ pblbK4+VWRn29+VWTnza+ell36U3Fjt/qKu+6s7/x1I37333ri4g735eeHNOntmS/0vja/Evfb+d57kf 494n0BMQf9j3vpMgK+ufbeo9fL8aqad/ynuuJ73/V23O/f+yfL2/l2Z0lhC+4v32sT28bbuk47etdlhL 19iZ1zs0O4t58eljA0jM/6m9vdl+wpflXezO6+nizv s7prwZ4rJwe1tc/vpG7z/91Jwy7DqLo/lehJX76o3wioAlx+xj3zK1+f++VKnbAlJ4fRy6Rh2+HPpR/+ XHrF/Xra0w+cDS6z31VeR+533O+4P3B/oD0T9+mTG8ho3sTwik3ht54q/F42n2JdB98i9todJ/mdDrzf za+j48PpPrq/espsuN/w+2R0huQ38mxd1+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/r5ZPkX58ru71oQOd/11fr/5lcvZ/Oq5v/V9rnF/6+hn3a8afo4+17jfcL/hfqCcQPnQd/Br196mR9 +jza+f07f57pZOlqhY25n6Aw7o/Gr6+viz+JXGMfErcYMFviF+5et6+VZ783OldpHsY638KpL/8m8Cv+ +43w+nTU3gNvQldHCTR4O8Bt4xjiJ57nm/qbz26qS9 reJXu/idoiH0Vl/7q/fTwbrVJ3m944GeBo03/D5QTuD+5meis66HU+0ZaOdE+2ec6/PDThIo5hdlH94M fNa/NZ/3wz4E9084COZ/de4Az1m9g/FZ98/5tUKm4Vh4s8h+mnNd7w26ebM8xdfHs/tBQd8afVc5dhZ+ fB4LjtAgAJs4MdQst/Dp7zzvlzy6j+4X3C+n/HLmo1 rOer+OGrxQTx9S/MwEmc371k7dCstxty/5lib3qNXoYcKz2GwS44Fv+AAAq5C46aulF/Er38/HD+tZ7+ /f9ZSV62eZt/rvzps+17gfb3+jessie/JV+kLc7C92aaN4NmNndLkDk/didiYRTkwoM2s+FX4+ujVDn+u7f Dn2g5/uqbfzX0FTs/Inq72s6e1PXtM/9YWKCdQ/tbX Ol67H60A/S1H+J90swDlRpDmaV/qUzt+5YMBNr+CzFb8QzLC6enL+GxeyG0sqdQL8j5ogqNmd/vo490P fh4iCC3PVnYgObzmp9Ni6kHIdi/ufOj3/lffOpTZ/EJHWnEgAD53bl1j/k1aV92Nn+nhhDsRejx/eHy+ 3uEzUx1+krMxW3h4b90zf4Eee9d3HmO3/PLenQBtvr jww0362honwi+n8cpZeRjlpb0Y2hwJRj/clFqOt3355M922ia8b77jtM/zK4+Hm1+190rsCYjC177yQ4 2xA/PRSLh/7aKU2CaypzCiW08izbA2yqgB0jfnH5gbcp8W5U5g0t+K+FVF/OeRuXtW48NE/u3R6Mqycn 2InnRpVO2Py4Fl8jyF6t4kkaJWI4z4aO+D+HxVmF8J e+hDj2bGn21c042Ow8W2ysGhuA00Ew4I4f/tgFLz61I+94LrsgnVs9/vxa+Wr4++C/qKX/p6J93WP/Rd 4flynwJhY945mDMSb4+JW+6E9QspI+ZL73eogHbSfQjj+2rbcS8JUdkHi9r7/c1oPOeosvP5Iee7wbSE waT5pC6l72s06zRdb6dptmYJzR4dDv1XRjhvveR+5b nY2d5xh4ym+HNL5/tCSyce2/ZDJnrtH5NmbY/pT8CKX/n6xGOb+JRP1MUdjctm+w1xtB2aI0D/cL+nU2 TBhsxpA0KgrxcQt3/Q68Rjm+JX+u3lG2t6MR/Fr/ybM/+5SaTGkez1Og5J2IG/3l6J0Wrh1uftVt90Xd qMoN574Lo1Plnd/VZO/23lrBdaPfHYVk//beJXzzV+ D3/e/Mp/ILjWt3+1eta/Ah2UuZOUJ/9t+B77j09nnaiN40j1uZ8fnZ21pR3u7iArh/iV7CZ+wwuQKg21 XON+xn34M/hVa+f7UWsn/tzaiT+4lahl5M/sM9qG3ftpv2T5hzpK3zdsv4ILm0jrcpa7zw1sP58tQZ6v nPhk0/mO1ieiUzltjx84gx/x+0g4Wpjb1x9BczR8F5 TbxK+e6zi/AOcI0nyKuwv/4v7C/dCmN9nu3G7e2ofPe/aY1evntTVWyJdc+diOXymGudOGe/cxag2y2y z7Hb/KVdLxU0izl5BF+5PJu/rvesO4m6Tz++QA4gj7Dnjy062d0Rt0P/Hp2RDRncAl6uPvN6jn0jge8g OGqqZe5C1i52ZA/VenR63uLeT/Lij6CHBPvtmO4nW8 cm4XaX4sq21yE741OhkZf86g1JEU/yZe/uuUa5J9w/5Vbr/hA2FJ7tbP8tu2rkzUQD7t8/l8J5J97OAP 24heT15blirU85A9fq8VOwx0B/H7wyeb+IVqimzMw1Yb/HtIDQ11B+8qaR7Yw+bEfcy/60eJ33Q4Yo/y NfR1/BnZ6IwE33HuymA9Md8/bygH+s8cnpTku+P+wP 2B+5d51hjjB6UyVdcFibC5+B/jM3r6Ad6dey6W+6G81Q0f1nhz11S+U/H7E4/kTn4xqUWdR/f7O0/t9N 28ASYuAg9pJwv9/depu912vOtAcjo2w05mwo/0osxokF78mwF+xs6QruYgac03aC+h+JNmdEX7aCazad V3kc/8G/wBa1TC6s/8/qwHIy/cx/vqb64VANxnwozL ORwpyjgA57ho08Ma/onvsRQepDjfYV0X4qbKl7f+G+S0e9XM1b9+qKoH5qm+S6LDVkvDX1f933Elyi/7 Uc/3/nzNU1pnL6o3p+d7aCh+7Ria8n5qVS6YFFJlzG903Cdh/RtRT/+STt2Dvkkyx6b42djB+JXqamf/ SfXxEogyjeoK6x+F+AT8lT41CjTy/o1Wcb/hfsN9+H OL4+wkjSq6Cy7C04l4/ccd3qg6S/jyS5luGemxiQKjT1dXhq83RqNYIcp4X+7aEA40Dvo9xFAdXghU9q kof8pDOc9WaU+4H7h/7kUTF61NmbJkWBnDg/YjRUzcX/b8GU5ML+xn4Pm6UG2t22A7GkRR1kugo0myyY ++70c/+6HZ9ju8Sek/4s/Rz/f62J84z/g1sRRvJdde aN8Uu3zetcCIoSN+ijC/8eihCBivihw7oQgEps/RjG6xcC3G+87eLP5ar7O+vY0He487f0skt1c8dZ0v 1dAe2hCpbz+7X8nLPAc170M9oV7mcqJh334xfXy5+ZXzfDe/Tbb7m4N6gclqyb9YeffGbd3i8qz1/lj/ 3crlt5V+dN819T0m1O17fh293HpFe9zaP8ny5/ugE2 [file] traveling storekeeper+Yw+u89k802/0oK0/hlGbIDyr9smDTabtz6ulboE+YIQ5iYPx2U1uLWfT8KPyQ70i+f22LhiTzd7u0 1+pYWN8dxWcD5/YIECtjPzlL0c8br+34RJGz+K5XKF l81+vqRS4g8KnhOL3X1cr+t/3yF/PdZmxg/ZD7oA/2SR/czv2pnjhmvag+x1ZDfyeOO9bzDQExE6zGGg +rFCh8eMxlwueikmws1Rkmg6D8FigixPiGhClEJFrImJ75wF9JD7BHwbH9JgqUYB/Jk/ITRU24wQlLfU se5wiu/Wxe8/S88ln45KoDig5ZDrF7EkmE+0iTPGRe /GVe/ZTyBi3cleSRPEi4nM2Ke2FBcU6a78Pm21+FuHbOF9/ER364we56jLYbt9xdvgvDNJby11wKen++ 6uHsO6CHyp2AU+vCFrh+0RXG0I2WXySFZ5IreFmV+Fn2vlxpKivA2sAyh3fCiRyB3ZqDk+C1pcE5WyVN 5TSRLhn5hbpLwkxkaTwrf9Jb07ROLishqiE6EVbmde i+h4kvAodhRp9IBpkfp4iCPmfr8qsKJnOW4VPyuv0J0C+cM0n2kCMa45VirD47x0MSa7bs57UOzYt+l5 PZwXdKlVHItXxKZOl3jTep0gNtcoJAmwkBR+tXW/PAIWehMcc8Cr9dzpReoC6mUbdy/cGeo1gu5b5OJ5 9rT40qyfpQALg58GWzf1QM9T/mb885VhpOMkq/kxTz 5CPH98HRmJ3ndbjDIkaaiGzLARajMI9kWhV6nZMS2ZYgdkKj5FYwK3QbbTi/tFG3G4nJ6ThsCaLbPOL+ nZX4auQlWk4RyQ+rah1UtGmOj6YiGEIbvEdPmD0ydzfnzWzJCqj3yrBKTW7JmzK7YzKpi+F9i3I6JyD1 26TedwNAnuvNivEuai8vaG/Pib9US+J3KzwsalQ6w9 Gu99LJKov1R+pFQjsNcSbF86zys/Dhs7gqk00iimjOm/XcIV3P2Ppyakp7amdFx8TS75M3897M6g/Zach [file] Dy5O0GMgNdX6itnuwl6VDjrUvE+MariaA /s/r6ikhgY/Zm9od+sverUF4dTrX5UQKWpcAi0fAypyZeedFQd [file] RVTXUN9DHLODBNUHJDKiFRFxWDQ8KWWuI4IfevMnbK JeYGBEUJeyZdukZGEhsC6nzMhaV6AjBEP5i2IgJA6LO5DkDNPkPPRIVLM2v3ByRJMrdtitoqdpJfBcAN VeIJDdJTNeBS3Zyr2krRRyzmJrBUDGCMcsGdfqZU2mzEfoecjzA6PwwNYcCJJ+ZkZySQ6ext6+CjEgMC KiJhi7XSYvHLkdLZFgLCPaNZVlH7yaDIXqPnNzIQSv CzTcGX8Ck9DsdJRaBs6bwvVuOkgXrOXnJetgMZWgJSLmRODhCuVGEIOxLOTmCLOkDMV9EWBfTVInSLsf WLSnNMc4SDN9SOWuNAPuGR0tLnVsMIPjTdY7DwZaOCOmMWXootBMADMuFDK0ITw7AMXcPWNcZMDrBEnu FIXsUBFnTUAbKBR4ZVS4CDOtQcPdEEDoFNDjIIRbHG OkIYJsptMQLTXpOYMaASO6PPGoKGBhGCQmBMrpRTNmSYGeZZpcVWHrMYOfJQ2qAmGxJUBeWDTtCNfsAZ SuMQYxdlGGESIvMNQpBLPfVHIvWQRhXGXyYZaoFQNuXUUsMYWzXJMlQBQnYZ4yCqXfFVVaCRD3UQCoCY DgQVGhllTBDRYrUZAgAVr9SYNaPLTbMRCfPGadRUDa IQLkVKH2ZECdIQHjOM6nAkBsQHLoLJM7QwBfMPNiSKEqpuDOYVHyTXApDZW9NhOhACFtDFLsWOtqKBWa XTUfHLtnYQLcHSHhYV0eDrEdXBKsFEZbIBsnUCCyBXIcndHVNVErTCWkQCPoPlHhJHFcPOJrDLrlZXZd TOn0Fbf1GGTgSQVeNK8uPsSeZKSgPTP3OZmsOYTpFI RrarAGMKZmHISvIJmgYTAdIZXsRYTzUJjxBLUmUHGjZIM8TUVgAXYmZG0sZaImSLPzIVAkNQHmIbJ5Pe DqHgZEjACowQvqkon1QTstR2z6GEDwSUizWP6wflHyMOPrPjfdEo9brIE9SEUgBlpCXw8Sj6GmqhS5il WxWin8CBC8MgZgPH6D ID Date Data Source [id number] 12/27/2019 05:40:43 AM EDT [facility] Name Value Range Interpretation Code Description Data [place] rce(s) Supporting Document(s) Lactate [Moles/volume] in Serum or Plasma 1.0 mmol/l 0.5-2.2 [facility] ID Date Data Source [id number] [facility] Interpretation Code Description Data [place] rce(s) Supporting Document(s) Leukocytes [#/volume] in Blood by Automated count 17.0 10*3/uL 4-10 H [facility] Erythrocytes [#/volume] in Blood by Automated count 3.82 10*6/uL 4.1- 5.3 L [facility] Hemoglobin [Mass/volume] in Blood 11.5 g/dL 11.5-15.5 [facility] Hematocrit [Volume Fraction] of Blood by Automated count 34.6 % 3 6-45 L [facility] Erythrocyte mean corpuscular volume [Entitic volume] by Auto mated count 90.6 fL 80-96 [facility] Erythrocyte mean corpuscular hemoglobin [Entitic mass] by Automated count 30.0 pg 27-33 [facility] Erythrocyte mean corpuscular hemoglobin concentration [Mass/volume] by Automated count 33.1 g/dL 32.0-[facility].0 [facility] width [Ratio] by Automated count 17.0 % 11.5-14.5 H [facility] Platelets [#/volume] in Blood by Automated count 284 10*3/uL 150-400 [facility] Differential cell count method - Blood [facility] Neutrophils/100 leukocytes in Blood by Automated count 94 % [facility] Lymphocytes/100 leukocytes in Blood by Automated count 3 % [facility] Monocytes/100 leukocytes in Blood by Automated count 3 % [facility] Eosinophils/100 leukocytes in Blood by Automated count 0 % [facility] Basophils/100 leukocytes in Blood by Automated count 0 % [facility] Neutrophils [#/volume] in Blood by Automated count 15.98 10*3/uL 1.8- 7.0 H [facility] Lymphocytes [#/volume] in Blood by Automated count 0.45 10*3/uL 1.2-4 .0 L [facility] Monocytes [#/volume] in Blood by Automated count 0.57 10*3/uL 0-0.8 [facility] Eosinophils [#/volume] in Blood by Automated count 0.00 10*3/uL 0-0.5 [facility] Basophils [#/volume] in Blood by Automated count 0.01 10*3/uL 0-0.2 [facility] Nucleated erythrocytes/100 leukocytes [Ratio] in Blood by Automated count 0 /100{WBCs} 0-0 [facility] ID Date Data Source [id number] 12/27/2019 05:12:14 AM EDT [facility] Name Value Range Interpretation Code Description Data [place] rce(s) Supporting Document(s) Bicarbonate [Moles/volume] in Serum 23 mmol/L 22-29 [facility] Chloride [Moles/volume] in Serum or Plasma 104 mmol/L 98-107 [facility] Creatinine [Mass/volume] in Serum or Plasma 0.76 mg/dL 0.50-0.90 [facility] Glucose [Mass/volume] in Serum or Plasma 127 mg/dL 70-140 [facility] Potassium [Moles/volume] in Serum or Plasma 3.5 mmol/L 3.4-5.1 [facility] Sodium [Moles/volume] in Serum or Plasma 137 mmol/L 136-145 [facility] Urea nitrogen [Mass/volume] in Serum or Plasma 25 mg/dL 8-23 H [facility] Anion gap 3 in Serum or Plasma 10 mmol/L 8-15 [facility] Osmolality of Serum or Plasma by calculation 290 mosm/kg 275-300 [facility] Creatinine/Urea nitrogen [Mass Ratio] in Serum or Plasma 33 [facility] Calcium [Mass/volume] in Serum or Plasma 8.3 mg/dL 8.8-10.2 L [facility] Glomerular filtration rate/1.73 sq M pre dicted among non-blacks [Volume Rate/Area] in Serum or Plasma by Creatinine-based formula (MDRD) 82 mL/min/1.73m2 >60 [facility] Glomerular filtration rate/1.73 sq M pre dicted among blacks [Volume Rate/Area] in Serum or Plasma by Creatinine-based formula (MDRD) >60 [facility] ID Date Data Source [id number] 12/26/2019 11:20:01 PM EDT [facility] CT HEAD WITHOUT CONTRAST [id number] RESU LTInterpreted by:Johnny Wolf MDPROCEDURE INFORMATION: Exam: CT Head Without Contrast [...] rce(s) Supporting Document(s) ID Date Data Source [id number] 12/26/2019 10:15:41 PM [facility] Value Range Interpretation Code Description Data [place] rce(s) Supporting Document(s) Lactate [Moles/volume] in Serum or Plasma 1.2 mmol/l 0.5-2.2 [facility] ID Date Data Source [id number] 12/26/2019 08:18:20 PM [facility] Name Value Range Interpretation Code Description Data [place] rce(s) Supporting Document(s) Lactate [Moles/volume] in Serum or Plasma 1.3 mmol/l 0.5-2.2 [facility] ID Date Data Source [id number] 12/26/2019 06:45:31 PM [facility] Value Range Interpretation Code Description Data [place] rce(s) Supporting Document(s) Glucose [Mass/volume] in Capillary blood by Glucometer 84 mg/dL 70- 140 [facility] ID Date Data Source [id number] 12/26/2019 05:24:25 PM [facility] Value Range Interpretation Code Description Data [place] rce(s) Supporting Document(s) Glucose [Mass/volume] in Capillary blood by Glucometer 68 mg/dL 70- 140 L [facility] ID Date Data Source [id number] 12/26/2019 05:08:12 PM [facility] XR ABDOMEN AP ERECT ONLY [id number] RESU LTInterpreted by:DEONDRE MedranoPROCEDURE INFORMATION: Exam: XR [...] rce(s) Supporting Document(s) ID Date Data Source [id number] 12/28/2019 10:07:10 AM EDT [facility] Service Cmnt XXX-Imp : NoneGram Stn XXX : No WBC's Seen4+Gram positive cocciin pairs2+Gram negative rodsMicroorganism XXX Cult : 2+Escherichia coliOrganism of questionable significance. No further workup of4+Streptococcus gallolyticus ssp pasteurianus Name Value Range Interpretation Code Description Data [place] rce(s) Supporting Document(s) ID Date Data Source [id number] 12/26/2019 04:39:22 PM EDT [facility] Name Value Range Interpretation Code Description Data [place] rce(s) Supporting Document(s) Leukocytes [#/volume] in Blood by Automated count 6.5 10*3/uL 4-10 [facility] Erythrocytes [#/volume] in Blood by Automated count 4.29 10*6/uL 4.1- 5.3 [facility] Hemoglobin [Mass/volume] in Blood 12.6 g/dL 11.5-15.5 [facility] Hematocrit [Volume Fraction] of Blood by Automated count 39.0 % 3 6-45 [facility] Erythrocyte mean corpuscular volume [Entitic volume] by Auto mated count 91.1 fL 80-96 [facility] Erythrocyte mean corpuscular hemoglobin [Entitic mass] by Automated count 29.4 pg 27-33 [facility] Erythrocyte mean corpuscular hemoglobin concentration [Mass/volume] by Automated count 32.2 g/dL 32.0-36.0 [facility] width [Ratio] by Automated count 17.3 % 11.5-14.5 H [facility] Platelets [#/volume] in Blood by Automated count 280 10*3/uL 150-400 [facility] Differential cell count method - Blood [facility] Neutrophils/100 leukocytes in Blood by Automated count 96 % [facility] Lymphocytes/100 leukocytes in Blood by Automated count 3 % [facility] Monocytes/100 leukocytes in Blood by Automated count 1 % [facility] Eosinophils/100 leukocytes in Blood by Automated count 0 % [facility] Basophils/100 leukocytes in Blood by Automated count 0 % [facility] Neutrophils [#/volume] in Blood by Automated count 6.20 10*3/uL 1.8-7 .0 [facility] Lymphocytes [#/volume] in Blood by Automated count 0.22 10*3/uL 1.2-4 .0 L [facility] Monocytes [#/volume] in Blood by Automated count 0.03 10*3/uL 0-0.8 [facility] Eosinophils [#/volume] in Blood by Automated count 0.00 10*3/uL 0-0.5 [facility] Basophils [#/volume] in Blood by Automated count 0.02 10*3/uL 0-0.2 [facility] Nucleated erythrocytes/100 leukocytes [Ratio] in Blood by Automated count 0 /100{WBCs} 0-0 [facility] ID Date Data Source [id number] 12/26/2019 05:03:11 PM T [facility] Name Value Range Interpretation Code Description Data [place] rce(s) Supporting Document(s) Bicarbonate [Moles/volume] in Serum 19 mmol/L 22-29 L [facility] Chloride [Moles/volume] in Serum or Plasma 103 mmol/L 98-107 [facility] Creatinine [Mass/volume] in Serum or Plasma 0.92 mg/dL 0.50-0.90 H [facility] Glucose [Mass/volume] in Serum or Plasma 83 mg/dL 70-140 [facility] Potassium [Moles/volume] in Serum or Plasma 3.4 mmol/L 3.4-5.1 [facility] Sodium [Moles/volume] in Serum or Plasma 137 mmol/L 136-145 [facility] Urea nitrogen [Mass/volume] in Serum or Plasma 28 mg/dL 8-23 H [facility] Anion gap 3 in Serum or Plasma 15 mmol/L 8-15 [facility] Osmolality of Serum or Plasma by calculation 289 mosm/kg 275-300 [facility] Creatinine/Urea nitrogen [Mass Ratio] in Serum or Plasma 30 [facility] Calcium [Mass/volume] in Serum or Plasma 9.0 mg/dL 8.8-10.2 [facility] Glomerular filtration rate/1.73 sq M pre dicted among non-blacks [Volume Rate/Area] in Serum or Plasma by Creatinine-based formula (MDRD) 60 mL/min/1.73m2 >60 L [facility] Glomerular filtration rate/1.73 sq M pre dicted among blacks [Volume Rate/Area] in Serum or Plasma by Creatinine-based formula (MDRD) 70 mL/min/1.73m2 >60 [facility] ID Date Data Source [id number] 12/26/2019 04:40:21 PM T [facility] Name Value Range Interpretation Code Description Data [place] rce(s) Supporting Document(s) Lactate [Moles/volume] in Serum or Plasma 3.2 mmol/l 0.5-2.2 H [facility] ID Date Data Source [id number] 12/31/2019 09:09:37 AM [facility] Service Cmnt XXX-Imp : R HANDMicroorgani sm XXX Cult : Smear: Gram positive rods suggestive of Corynebacterium species.in anaerobic broth.Called to and read back byBERE PENNY RN ON 6B AT 1500 ON 12/29/2019 BY Bobby hendricks anaerobic broth. Name Value Range Interpretation Code Description Data [place] rce(s) Supporting Document(s) ID Date Data Source [id number] 12/31/2019 08:27:27 AM [facility] Service Cmnt XXX-Imp : L HANDMicroorgani sm XXX Cult : No growth 5 days Name Value Range Interpretation Code Description Data [place] rce(s) Supporting Document(s) ID Date Data Source [id number] 12/26/2019 10:48:37 AM [facility] Name Value Range Interpretation Code Description Data [place] rce(s) Supporting Document(s) [facility] DDKKZc3bGaATYwFuv3BwKxIpVBSoMA5kmwj5P4W6dVTnU7AteZNif4dwY3MuU9EjOTLnGQKKVW0RdPRg jb2 [file] xxIp2jfQC0IRPiUqqXEw0Vz7LudcH0tqEcPfX3NqodIhAwSG3V ID Date Data Source [id number] 12/26/2019 10:24:34 AM EDT [facility] XR CHEST FRONTAL ONLY [id number] RESULTI nterpreted by:Juan Thomason MDINDICATION: 74-year-old female [...] rce(s) Supporting Document(s) ID Date Data Source [id number] 12/26/2019 10:15:56 AM EDT [facility] Name Value Range Interpretation Code Description Data [place] rce(s) Supporting Document(s) History and Physical [facility] SOSAVl7tWtHAIcYh47/TFDayRYLpu8TaIOmhJDr0MBtrIXKhD3PpUUT3kU7dPWY5XQuBMjCwAhGiTXZ6 lbm [file] JVcqNtmLQJ/i9/+nf9WDCIzkfDBTBCr7cEizkq [file] AgICAgICAgICAgICAgICAgICAgICAgICAgICAgICAgICAgICAgICAgICAgICAgICAgICAgICAgICAgIC AgICAgICAgICAgICAgICAgICAgICAgICAgICAgICAgICAgICANCiAgICAgICAgICAgICAgICAgICAgIC AgICAgICAgICAgICAgICAgICAgICAgICAgICAgICAg ICAgICAgICAgICAgICAgICAgICAgICAgICAgICAgICAgICAgICAgICAgICAgICANCiAgICAgICAgICAg ICAgICAgICAgICAgICAgICAgICAgICAgICAgICAgICAgICAgICAgICAgICAgICAgICAgICAgICAgICAg ICAgICAgICAgICAgICAgICAgICAgICAgICAgICANCi AgICAgICAgICAgICAgICAgICAgICAgICAgICAgICAgICAgICAgICAgICAgICAgICAgICAgICAgICAgIC AgICAgICAgICAgICAgICAgICAgICAgICAgICAgICAgICAgICAgICANCiAgICAgICAgICAgICAgICAgIC AgICAgICAgICAgICAgICAgICAgICAgICAgICAgICAg ICAgICAgICAgICAgICAgICAgICAgICAgICAgICAgICAgICAgICAgICAgICAgICAgICANCiAgICAgICAg ICAgICAgICAgICAgICAgICAgICAgICAgICAgICAgICAgICAgICAgICAgICAgICAgICAgICAgICAgICAg ICAgICAgICAgICAgICAgICAgICAgICAgICAgICAgIC ANCiAgICAgICAgICAgICAgICAgICAgICAgICAgICAgICAgICAgICAgICAgICAgICAgICAgICAgICAgIC AgICAgICAgICAgICAgICAgICAgICAgICAgICAgICAgICAgICAgICAgICANCiAgICAgICAgICAgICAgIC AgICAgICAgICAgICAgICAgICAgICAgICAgICAgICAg ICAgICAgICAgICAgICAgICAgICAgICAgICAgICAgICAgICAgICAgICAgICAgICAgICAgICANCiAgICAg ICAgICAgICAgICAgICAgICAgICAgICAgICAgICAgICAgICAgICAgICAgICAgICAgICAgICAgICAgICAg ICAgICAgICAgICAgICAgICAgICAgICAgICAgICAgIC AgICANCiAgICAgICAgICAgICAgICAgICAgICAgICAgICAgICAgICAgICAgICAgICAgICAgICAgICAgIC AgICAgICAgICAgICAgICAgICAgICAgICAgICAgICAgICAgICAgICAgICAgICANCjw/fCQtR1gueOSzrk V0X6axAh1VCl4XEP5xs7KuQMOnDNsywiRkFkpQCrGd VWWpPidBIla0ZPvmGY7MuSIpC5QtV9GqFMcyGR8EQMCzIGYzfGAyILTlJDSdQbD2UKIyQQhsUT1GmGQb HUjpEUKkAPOkJvJeOJEaANZdIZZiQSRcCPGGEX8NIrGcF6OmzS83XEUKSg6+DQplbmRvYmoNCjMxIDAg g1YpBVj9XP5PEAQmHowzg4PpSwWbDIUTAVdfRE5DXI M8THDmWZElEw7CNYSzZ671uzUqFO7DFr7IRbYlNH5qwq8JKxZsJMEaJnoVBka9LDveIE3LgBRiMHlYXs WoTtskXB13q56blw4rFFg9DMDkzl4xITXJOpGdrXJuBP0uVm3bQJSaXRScZzY1VOLUVC8SCPTeIFYyeT KlPVReFAHBMO1KNPuuPIP6HMXpfvPyhTJgFAekPB3F YXJlbnQgMzEgMCBSDQo+Ko1WHL6sc2HqVYwbZpFaPY1hch3NRLzJFzNeM4G5zBYqD1J3ZNmwZb3GOUSn RSNqZezwAGCWDKebJX1FWT7pjvI8JJ7KaKOmRKBvZBGbgYRjYHt2S51oaUZrEQmqGC8YGRV+Scarlett+Pg0K OYCmFPVzDYEyIuKlVVWJGdCkL5RlV4WIi8AbF2YxVB 42hOjyagPxDUjsDA1NJS0uCDZbFJFOZC4WxOWooS3mueLlNWLeAVXXBtIdC97soLHhYHGyQOFlUFEeUi 3MBDIhQ0ZabeGnfUrjklLrAJNvLTNNVV8HVVxbipLipIHlfPpcQT21rFzuHY3QZb5DMsVaBM5hgm7BsA ElFx1SXCNtQK2HRGOuBWCrGMIxMQX7KJXfLpVgTXyy UFUkZAZzDFX2KXDpKFCuAY6PPeUqAGCgNaE8HnSwIRMvBUPxan6FGVHwZFEuCgmfQlWnPCPiRXOdNIzy LTFdUZSgMPQ3RZWmLZXaLA3EKqDnTLQwDTFnUGQtSUStEUEapx0EHSEeMOUjHMIcEMJcXXUcVDXbUVly ZEZbNSM1EyDsBCNvNCIlWW2XOiKpNVWiEHi9DbCyZH JgNIAczb6OEQRiAURvHEaiPSMpQYEjKGTvMItwAHWlSFWfDRJaPBNvVSAgVK5CNgUoVHIxOBJpATmvLX SgYBZrgl4VORZcDBGtHjJxDsWsPIRsMTNpLSsdYDOsHVF6JywdNNLbPNJcNV2JYbMbZTOeZTP8FdVfHG AcFBDxhl7BZTMgXFGhRMG8BpNgKLUtGEGbHQlvIHPy LSH0UhCzLQRyBACoVS7ZUaXtDXOeTPY2IAJoDQZpXKAtkh3UPMXdLMZuOlUbLkTjNNKkSEZrCFliXIOn CQJ9HVOwVOGcAHBlTI0AUlBhCOUnXOyoVZzcGYRcHBVhcx9FVTOmOGNiTgJ6PeEfPHDcMRXwGYjjRBCi AWS4BbG9EGCqHURmCV3XLnPjVCXdPagdELBsHZBwZV Ibsu4UQRLpSRDaAJL0MBArNXJiTVBuVRebRNIfNMP6QCqqEYYhYBPdAB9ORoFeEIRsVfu0YattWQNbXB Vinl2KFKXwQAOyXRJ8AiNwPIOoABQvPZvxSRKlPTCfAzamPTCmCEJoBH5BXjDuMRIlMpU1ZYcoIJPfEM Dueo9NQAIjTGHnTFS7FaErFIPuGLXhDZqpPTCtCAQd FSU2SUYjVHVfFK1GXxZwBERkWpT7CLQiAFEkOYJckd8WAZPjKRJxJiB0HhVkCQHbQDZbXIh7oyZysBQr XCk9ZX5RZ2XggnAoSdDPYd1Au955KFBvSTIhRh4UD6hvLn0rGZAbTTSJRx2SAOw1RdZ1R2ReFKZ7SFEi HUC0XVCoIAI7WEQfJdPvJyMaH0A+IDxiYzUzZDBlMj xqPiQ5GFUeCyBwERAxCjXaMGYuDLNgBV2fBEIFQw9+RMcamDQrxLfoINQEZxXdStd2GGcsOFWKGj7L ID Date Data Source [id number] 12/26/2019 09:52:09 AM EDT [facility] Name Value Range Interpretation Code Description Data [place] rce(s) Supporting Document(s) Leukocytes [#/volume] in Blood by Automated count 20.1 10*3/uL 4-10 H [facility] Erythrocytes [#/volume] in Blood by Automated count 4.01 10*6/uL 4.1- 5.3 L [facility] Hemoglobin [Mass/volume] in Blood 11.8 g/dL 11.5-15.5 [facility] Hematocrit [Volume Fraction] of Blood by Automated count 36.2 % 3 6-45 [facility] Erythrocyte mean corpuscular volume [Entitic volume] by Auto mated count 90.1 fL 80-96 [facility] Erythrocyte mean corpuscular hemoglobin [Entitic mass] by Automated count 29.3 pg 27-33 [facility] Erythrocyte mean corpuscular hemoglobin concentration [Mass/volume] by Automated count 32.5 g/dL 32.0-36.0 [facility] width [Ratio] by Automated count 17.1 % 11.5-14.5 H [facility] Platelets [#/volume] in Blood by Automated count 301 10*3/uL 150-400 [facility] Differential cell count method - Blood [facility] Neutrophils/100 leukocytes in Blood by Automated count 92 % [facility] Lymphocytes/100 leukocytes in Blood by Automated count 4 % [facility] Monocytes/100 leukocytes in Blood by Automated count 4 % [facility] Eosinophils/100 leukocytes in Blood by Automated count 0 % [facility] Basophils/100 leukocytes in Blood by Automated count 0 % [facility] Neutrophils [#/volume] in Blood by Automated count 18.59 10*3/uL 1.8- 7.0 H [facility] Lymphocytes [#/volume] in Blood by Automated count 0.74 10*3/uL 1.2-4 .0 L [facility] Monocytes [#/volume] in Blood by Automated count 0.77 10*3/uL 0-0.8 [facility] Eosinophils [#/volume] in Blood by Automated count 0.00 10*3/uL 0-0.5 [facility] Basophils [#/volume] in Blood by Automated count 0.02 10*3/uL 0-0.2 [facility] Nucleated erythrocytes/100 leukocytes [Ratio] in Blood by Automated count 0 /100{WBCs} 0-0 [facility] ID Date Data Source [id number] 12/26/2019 10:13:47 AM EDT [facility] Name Value Range Interpretation Code Description Data [place] rce(s) Supporting Document(s) Bicarbonate [Moles/volume] in Serum 21 mmol/L 22-29 L [facility] Chloride [Moles/volume] in Serum or Plasma 105 mmol/L 98-107 [facility] Creatinine [Mass/volume] in Serum or Plasma 0.85 mg/dL 0.50-0.90 [facility] Glucose [Mass/volume] in Serum or Plasma 76 mg/dL 70-140 [facility] Potassium [Moles/volume] in Serum or Plasma 3.3 mmol/L 3.4-5.1 L [facility] Sodium [Moles/volume] in Serum or Plasma 141 mmol/L 136-145 [facility] Urea nitrogen [Mass/volume] in Serum or Plasma 25 mg/dL 8-23 H [facility] Anion gap 3 in Serum or Plasma 14 mmol/L 8-15 [facility] Osmolality of Serum or Plasma by calculation 294 mosm/kg 275-300 [facility] Creatinine/Urea nitrogen [Mass Ratio] in Serum or Plasma 29 [facility] Calcium [Mass/volume] in Serum or Plasma 9.3 mg/dL 8.8-10.2 [facility] Glomerular filtration rate/1.73 sq M pre dicted among non-blacks [Volume Rate/Area] in Serum or Plasma by Creatinine-based formula (MDRD) 67 mL/min/1.73m2 >60 [facility] Glomerular filtration rate/1.73 sq M pre dicted among blacks [Volume Rate/Area] in Serum or Plasma by Creatinine-based formula (MDRD) 77 mL/min/1.73m2 >60 [facility] ID Date Data Source [id number] 12/26/2019 10:02:36 AM [facility] Name Value Range Interpretation Code Description Data [place] rce(s) Supporting Document(s) Lactate [Moles/volume] in Serum or Plasma 0.9 mmol/l 0.5-2.2 [facility] ID Date Data Source [id number] 12/31/2019 08:27:27 AM [facility] Service Cmnt XXX-Imp : BloodR HANDMicroo rganism XXX Cult : No growth 5 days Name Value Range Interpretation Code Description Data [place] rce(s) Supporting Document(s) ID Date Data Source [id number] 12/31/2019 08:27:27 AM [facility] Cmnt XXX-Imp : BloodL HANDMicroo rganism XXX Cult : No growth 5 days Name Value Range Interpretation Code Description Data [place] rce(s) Supporting Document(s) ID Date Data Source [id number] 12/26/2019 03:57:24 AM T [facility] Name Value Range Interpretation Code Description Data [place] rce(s) Supporting Document(s) Specimen source [Identifier] of Unspecified specimen [facility] SARS-CoV-2 RNA 2018 nCoV Real-Time RT-PCR: NOT DETECTED [facility] Assay Performed [facility] Patients first test for [facility] Patient employed in healthcare setting [facility] Corrected 12/25 AT 0303: Previous Result was UNKNOWN Patient has symptoms related to [facility] When did you start to experience these symptoms [Date and time] [PhenX] [id number] [facility] Patient was hospitalized because of this [facility] patient was admitted to ICU for [facility] Patient resides in a congregate care setting [facility] status [facility] ID Date Data Source [id number] 12/26/2019 02:23:00 AM [facility] Value Range Interpretation Code Description Data [place] rce(s) Supporting Document(s) SARS-CoV-2 RNA [facility] This lab was ordered by [facility] and reported by [facility]. ID Date Data Source [id number] 12/26/2019 03:04:48 AM [facility] Value Range Interpretation Code Description Data [place] rce(s) Supporting Document(s) Prothrombin time (PT) 26.1 s 12.5-14.9 H [facility] INR in Platelet poor plasma by Coagulation assay 2.34 [facility] Routine intensity oral anticoagulation I NR is typically 2.0-3.0. Target INR must be clinically individualized. ID Date Data Source [id number] 12/26/2019 03:14:24 AM [facility] Name Value Range Interpretation Code Description Data [place] rce(s) Supporting Document(s) Leukocytes [#/volume] in Blood by Automated count 20.7 10*3/uL 4-10 H [facility] Erythrocytes [#/volume] in Blood by Automated count 4.29 10*6/uL 4.1- 5.3 [facility] Hemoglobin [Mass/volume] in Blood 12.8 g/dL 11.5-15.5 [facility] Hematocrit [Volume Fraction] of Blood by Automated count 39.2 % 3 6-45 [facility] Erythrocyte mean corpuscular volume [Entitic volume] by Auto mated count 91.4 fL 80-96 [facility] Erythrocyte mean corpuscular hemoglobin [Entitic mass] by Automated count 29.9 pg 27-33 [facility] Erythrocyte mean corpuscular hemoglobin concentration [Mass/volume] by Automated count 32.7 g/dL 32.0-36.0 [facility] Erythrocyte distribution width [Ratio] by Automated count 17.1 % 11.5-14.5 H [facility] Platelets [#/volume] in Blood by Automated count 312 10*3/uL 150-400 [facility] Differential cell count method - Blood [facility] Neutrophils/100 leukocytes in Blood by Automated count 92 % [facility] Lymphocytes/100 leukocytes in Blood by Automated count 4 % [facility] Monocytes/100 leukocytes in Blood by Automated count 4 % [facility] Eosinophils/100 leukocytes in Blood by Automated count 0 % [facility] Basophils/100 leukocytes in Blood by Automated count 0 % [facility] Neutrophils [#/volume] in Blood by Automated count 19.09 10*3/uL 1.8- 7.0 H [facility] Lymphocytes [#/volume] in Blood by Automated count 0.79 10*3/uL 1.2-4 .0 L [facility] Monocytes [#/volume] in Blood by Automated count 0.82 10*3/uL 0-0.8 H [facility] Eosinophils [#/volume] in Blood by Automated count 0.00 10*3/uL 0-0.5 [facility] Basophils [#/volume] in Blood by Automated count 0.05 10*3/uL 0-0.2 [facility] Nucleated erythrocytes/100 leukocytes [Ratio] in Blood by Automated count 0 /100{WBCs} 0-0 [facility] ID Date Data Source [id number] 12/26/2019 03:53:38 AM EDT [facility] Name Value Range Interpretation Code Description Data [place] rce(s) Supporting Document(s) Albumin [Mass/volume] in Serum or Plasma by Bromocresol green (BCG) dye binding method 2.8 g/dL 3.5-5.2 L [facility] Bilirubin.total [Mass/volume] in Serum or Plasma 0.5 mg/dL <1.2 [facility] Bilirubin.direct [Mass/volume] in Serum or Plasma 0.2 mg/dL <0.3 [facility] Alkaline phosphatase [Enzymatic activity/volume] in Serum or Plasma 54 U/L 35-104 [facility] Aspartate aminotransferase [Enzymatic activity/volume] in Serum or Plasma 21 U/L <32 [facility] Alanine aminotransferase [Enzymatic activity/volume] in Seru m or Plasma 5 U/L <33 [facility] Protein [Mass/volume] in Serum or Plasma 6.5 g/dL 6.4-8.3 [facility] ID Date Data Source [id number] 12/26/2019 03:53:38 AM [facility] Name Value Range Interpretation Code Description Data [place] rce(s) Supporting Document(s) Magnesium [Mass/volume] in Serum or Plasma 1.8 mg/dL 1.6-2.4 [facility] ID Date Data Source [id number] 12/26/2019 03:53:38 AM [facility] Name Value Range Interpretation Code Description Data [place] rce(s) Supporting Document(s) Phosphate [Mass/volume] in Serum or Plasma 3.1 mg/dL 2.5-4.5 [facility] ID Date Data Source [id number] 12/26/2019 03:53:38 AM [facility] Name Value Range Interpretation Code Description Data [place] rce(s) Supporting Document(s) Bicarbonate [Moles/volume] in Serum 21 mmol/L 22-29 L [facility] Chloride [Moles/volume] in Serum or Plasma 104 mmol/L 98-107 [facility] Creatinine [Mass/volume] in Serum or Plasma 0.71 mg/dL 0.50-0.90 [facility] Glucose [Mass/volume] in Serum or Plasma 76 mg/dL 70-140 [facility] Potassium [Moles/volume] in Serum or Plasma 3.4 mmol/L 3.4-5.1 [facility] Sodium [Moles/volume] in Serum or Plasma 139 mmol/L 136-145 [facility] Urea nitrogen [Mass/volume] in Serum or Plasma 21 mg/dL 8-23 [facility] Anion gap 3 in Serum or Plasma 14 mmol/L 8-15 [facility] Osmolality of Serum or Plasma by calculation 290 mosm/kg 275-300 [facility] Creatinine/Urea nitrogen [Mass Ratio] in Serum or Plasma 30 [facility] Calcium [Mass/volume] in Serum or Plasma 8.8 mg/dL 8.8-10.2 [facility] Glomerular filtration rate/1.73 sq M pre dicted among non-blacks [Volume Rate/Area] in Serum or Plasma by Creatinine-based formula (MDRD) 84 mL/min/1.73m2 >60 [facility] Glomerular filtration rate/1.73 sq M pre dicted among blacks [Volume Rate/Area] in Serum or Plasma by Creatinine-based formula (MDRD) >60 [facility] ID Date Data Source [id number] 12/26/2019 03:56:43 AM EDT [facility] Service Cmnt XXX-Imp : NoneRespiratory P CR Panel : PCR ResultsMicroorganism XXX Cult : See Labs Tab for 2019 nCoV RT-PCR resultsHAdV DNA QI [place]+non-probe : Not DetectedHCoV [id number] Nph QI [place]+non-probe : Not DetectedHCoV [id number] Nph QI [place]+non-probe : Not [id number] RNA Nph QI [place]+non-probe : Not [id number] RNA Upper resp QI [place]+probe : Not [...] DNA Nph Q [place]+non-probe : Not DetectedB [id number] DNA Nph [place]+non-probe : Not Detected Name Value Range Interpretation Code Description Data [place] rce(s) Supporting Document(s) ID Date Data Source [id number] 12/25/2019 08:04:59 PM EDT [facility] Name Value Range Interpretation Code Description Data [place] rce(s) Supporting Document(s) Progress Note [facility] [id number] [file] [id number]= ID Date Data Source SYPHILIS ANTIBODY (RPR SCREEN) 03/18/2019 12:00:00 AM EST eC W1 ([facility]) Name Value Range Interpretation Code Description Data [place] rce(s) Supporting Document(s) NONREACTIVE NONREACTIVE SYPHILIS eCW1 ([facility]) ID Date Data Source VITAMIN D 25-HYDROXY 03/18/2019 12:00:00 AM EST eCW1 ([facility]) Name Value Range Interpretation Code Description Data [place] rce(s) Supporting Document(s) 31.7 30.0-100.0 TOTAL 25(OH) VITAMIN D eC W1 ([facility]) ID Date Data Source VITAMIN B12 LEVEL 03/18/2019 12:00:00 AM EST eCW1 ([facility]) Name Value Range Interpretation Code Description Data [place] rce(s) Supporting Document(s) [id number] VITAMIN B12 LEVEL eCW1 ([facility]) ID Date Data Source TSH 03/18/2019 12:00:00 AM EST eCW1 ([facility]) Name Value Range Interpretation Code Description Data [place] rce(s) Supporting Document(s) 5.080 0.358-3.740 THYROID STIMULATING HORM ONE eCW1 ([facility]) ID Date Data Source ERYTHROCYTE SEDIMENTATION RATE 03/18/2019 12:00:00 AM EST eC W1 ([facility]) Name Value Range Interpretation Code Description Data [place] rce(s) Supporting Document(s) 46 0-30 ERYTHROCYTE SEDIMENTATION RATE eCW1 ([facility]) ID Date Data Source Basic Metabolic Profile (BMP) 03/18/2019 12:00:00 AM EST eCW 1 ([facility]) Name Value Range Interpretation Code Description Data [place] rce(s) Supporting Document(s) 89 70-100 GLUCOSE, FASTING eCW1 ([facility]) 1.00 0.55-1.30 CREATININE FOR GFR eCW1 ([facility]) 16 7-18 BLOOD UREA NITROGEN eCW1 ([facility]) 140 136-145 SODIUM LEVEL eCW1 ([facility]) 3.9 3.5-5.1 POTASSIUM SERUM eCW1 ([facility] hospital) 58.0 >39 GLOMERULAR FILTRATION RATE eCW 1 ([facility]) 106 98-107 CHLORIDE LEVEL eCW1 ([facility]) 8.7 8.8-10.2 CALCIUM LEVEL eCW1 ([facility]) 29 21-32 CARBON DIOXIDE LEVEL eCW1 ([facility]) ID Date Data Source C REACTIVE PROTEIN QUANTITATIV (At [facility]) 03/18/2019 12:00 :00 AM EST eCW1 ([facility]) Name Value Range Interpretation Code Description Data [place] rce(s) Supporting Document(s) 1.05 0.00-0.30 C REACTIVE PROTEIN QUANTI TATIV eCW1 ([facility]) ID Date Data Source CBC with Differential 03/18/2019 12:00:00 AM EST eCW1 ([facility]) Name Value Range Interpretation Code Description Data [place] rce(s) Supporting Document(s) 5.8 4.0-10.0 WHITE BLOOD COUNT eCW1 ([facility]) 4.61 4.00-5.40 RED BLOOD COUNT eCW1 ([facility] hospital) 13.6 12.0-15.5 HEMOGLOBIN eCW1 ([facility]) 43.9 36.0-47.0 HEMATOCRIT eCW1 ([facility]) 95.2 80.0-96.0 MEAN CORPUSCULAR VOLUME e CW1 ([facility]) 15.5 11.5-14.5 RED CELL DISTRIBUTION WID TH eCW1 ([facility]) 31.0 32.0-36.5 MEAN CORPUSCULAR HGB CONC eCW1 ([facility]) 29.5 27.0-33.0 MEAN CORPUSCULAR HEMOGLOB IN eCW1 ([facility]) 21.8 24.0-44.0 LYMPH % eCW1 ([facility]) 343 150-450 PLATELET COUNT, AUTOMATED eCW1 ([facility]) 59.7 36.0-66.0 NEUTROPHILS % eCW1 ([facility]) 1.2 0.0-1.0 BASO % eCW1 ([facility]) 6.8 0.0-3.0 EOS % eCW1 ([facility]) 10.2 0.0-5.0 MONO % eCW1 ([facility]) 3.4 1.5-8.5 NEUTROPHILS # eCW1 ([facility]) 1.3 1.5-5.0 LYMPH # eCW1 ([facility]) 0.6 0.0-0.8 MONO # eCW1 ([facility]) 0.4 0.0-0.5 EOS # eCW1 ([facility]) 0.1 0.0-0.2 BASO # eCW1 ([facility]) ID Date Data Source NT-PRO BNP 03/18/2019 12:00:00 AM EST eCW1 ([facility]) Name Value Range Interpretation Code Description Data [place] rce(s) Supporting Document(s) 271 <125 NT-PRO BNP eCW1 ([facility]) Procedure Social History Code Duration Value Status Description Data Source(s ) Alcohol intake 03/16/2020 12:00:00 AM EST Ex-drinker (finding) comp leted Ex- drinker (finding) [facility] Tobacco use and exposure 03/16/2020 12:00:00 AM EST Never used co mpleted Never used [facility] Smoking 03/16/2020 12:00:00 AM EST Former smoker completed Former smoker [facility] Alcohol intake 12/28/2019 12:00:00 AM EDT Ex-drinker (finding) comp leted Ex- drinker (finding) [facility] Smoking 07/01/2019 12:00:00 AM EDT Former Smoker completed Former Smoker eCW1 ([facility]) Smoking 07/01/2019 12:00:00 AM EDT Former Smoker completed Former Smoker eCW1 ([facility]) Vital Signs ID Date Data Source UNK Name Value Range Interpretation Code Description Data Source(s) Diastolic blood pressure 70 mm[Hg] 70 mm[Hg] eCW1 ([facility]) Systolic blood pressure 120 mm[Hg] 120 mm[Hg] e CW1 ([facility]) Body temperature 97.3 [degF] 97.3 [degF] eCW1 ( [facility]) Respiratory rate 20 /min 20 /min eCW1 ([facility]) Heart rate 92 /min 92 /min eCW1 ([facility]) Body mass index (BMI) [Ratio] 32.55 kg/m2 32.55 kg/m2 eCW1 ([facility]) Body height 62 [in_us] 62 [in_us] eCW1 ([facility]) Body weight Measured 178 [lb_av] 178 [lb_av] eC W1 ([facility]) Body weight 80.287 kg 80.287 kg MEDENT ([facility], ) Body mass index (BMI) [Ratio] 32.4 kg/m2 32.4 k g/m2 MEDENT ([facility], ) Body weight 177.00 [lb_av] 177.00 [lb_av] MEDEN T ([facility], ) Body height 62 [in_i] 62 [in_i] MEDENT ([facility], ) 5'2" Diastolic blood pressure 74 mm[Hg] 74 mm[Hg] [facility]) Systolic blood pressure 148 mm[Hg] 148 mm[Hg] M EDENT ([facility], ) Diastolic blood pressure 67 mm[Hg] 67 mm[Hg] eCW1 ([facility]) Systolic blood pressure 148 mm[Hg] 148 mm[Hg] e CW1 ([facility]) Body temperature 98.0 [degF] 98.0 [degF] eCW1 ( [facility]) Respiratory rate 19 /min 19 /min eCW1 ([facility]) Heart rate 91 /min 91 /min eCW1 ([facility]) Body mass index (BMI) [Ratio] 30.18 kg/m2 30.18 kg/m2 eCW1 ([facility]) Body height 62 [in_us] 62 [in_us] eCW1 ([facility]) Body weight Measured 165 [lb_av] 165 [lb_av] eC W1 ([facility]) Diastolic blood pressure 70 mm[Hg] 70 mm[Hg] eCW1 ([facility]) Systolic blood pressure 130 mm[Hg] 130 mm[Hg] e CW1 ([facility]) Body temperature 96.3 [degF] 96.3 [degF] eCW1 ( [facility]) Respiratory rate 18 /min 18 /min eCW1 ([facility]) Heart rate 93 /min 93 /min eCW1 ([facility]) Body mass index (BMI) [Ratio] 30.18 kg/m2 30.18 kg/m2 eCW1 ([facility]) Body height 62 [in_us] 62 [in_us] eCW1 ([facility]) Body weight Measured 165 [lb_av] 165 [lb_av] eC W1 ([facility]) Diastolic blood pressure 61 mm[Hg] 61 mm[Hg] eCW1 ([facility]) Systolic blood pressure 135 mm[Hg] 135 mm[Hg] e CW1 ([facility]) Body temperature 96.6 [degF] 96.6 [degF] eCW1 ( [facility]) Respiratory rate 18 /min 18 /min eCW1 ([facility]) Heart rate 77 /min 77 /min eCW1 ([facility]) Body mass index (BMI) [Ratio] 29.44 kg/m2 29.44 kg/m2 eCW1 ([facility]) Body height 62 [in_us] 62 [in_us] eCW1 ([facility]) Body weight Measured 161 [lb_av] 161 [lb_av] eC W1 ([facility]) Diastolic blood pressure 60 mm[Hg] 60 mm[Hg] eCW1 ([facility]) Systolic blood pressure 140 mm[Hg] 140 mm[Hg] e CW1 ([facility]) Body temperature 98.2 [degF] 98.2 [degF] eCW1 ( [facility]) Respiratory rate 18 /min 18 /min eCW1 ([facility]) Heart rate 96 /min 96 /min eCW1 ([facility]) Body mass index (BMI) [Ratio] 32.19 kg/m2 32.19 kg/m2 eCW1 ([facility]) Body height 62 [in_us] 62 [in_us] eCW1 ([facility]) Body weight Measured 176 [lb_av] 176 [lb_av] eC W1 ([facility]) Diastolic blood pressure 76 mm[Hg] 76 mm[Hg] eCW1 ([facility]) Systolic blood pressure 138 mm[Hg] 138 mm[Hg] e CW1 ([facility]) Body temperature 97.6 [degF] 97.6 [degF] eCW1 ( [facility]) Respiratory rate 18 /min 18 /min eCW1 ([facility]) Heart rate 90 /min 90 /min eCW1 ([facility]) Body mass index (BMI) [Ratio] 33.10 kg/m2 33.10 kg/m2 eCW1 ([facility]) Body height 62 [in_us] 62 [in_us] eCW1 ([facility]) Body weight Measured 181 [lb_av] 181 [lb_av] eC W1 ([facility]) ID Date Data Source [id number] 03/16/2020 09:44:32 PM [facility] Name Value Range Interpretation Code Description Data Source(s) WEIGHT RECORDED [address] [facility] Body height Measured 62 in 62 in [facility] ID Date Data Source [id number] 01/14/2020 10:38:03 AM [facility] Name Value Range Interpretation Code Description Data Source(s) WEIGHT RECORDED 160.[address] [facility] Body height Measured 62 in 62 in [facility] TRANSFER FROM [facility] ID Date Data Source [id number] 12/26/2019 04:47:20 PM EDT [facility] Name Value Range Interpretation Code Description Data Source(s) TRANSFER FROM [facility] Patient Treatment Plan of Care Planned Activity Planned Date Details Description Data Source (s) pantoprazole 40 MG Delayed Release Oral Tablet 01/10/2020 12:00:00 AM [facility] TPN adult 01/09/2020 07:00:00 PM EDT [facility] Continue [facility] 8[facility]6 MG Oral Tablet 01/09/2020 12:00:00 AM [facility] Albuterol Sulfate HFA 108 (90 Base) MCG/ ACT Inhalation Aerosol Solution (PROVENTIL HFA) 01/09/2020 12:00:00 AM EDT [facility] Acetaminophen 325 MG Oral Tablet [facility]IL H[facility] inhaler 2 puff 01/07/2020 07:49:00 AM [facility] sodium chloride (preservative free) 0.9 % flush 10 mL [facility]/03[facility] MG Injection 01/02/2020 12:52:24 PM [facility] Glucose 0.417 MG/MG Oral Gel 01/02/2020 12:52:24 PM [facility] Piperacillin 3000 MG / tazobactam 375 MG Injection 12/29/2019 12 :00:00 AM [facility] influenza vac split quad (FLUARIX) injection 6 months and older 0.5 mL 12/26/2019 01:41:29 AM EDT [facility] olopatadine 2 MG/ML Ophthalmic Solution 07/03/2019 12:00:00 AM EDT eCW1 ([facility]) olopatadine 2 MG/ML Ophthalmic Solution 07/03/2019 12:00:00 AM EDT eCW1 ([facility]) olopatadine 2 MG/ML Ophthalmic Solution 07/03/2019 12:00:00 AM EDT eCW1 ([facility]) olopatadine 1 MG/ML Ophthalmic Solution 07/01/2019 12:00:00 AM EDT eCW1 ([facility]) Amlodipine 10 MG Oral Tablet 04/27/2019 12:00:00 AM EST [facility] Apixaban 5 MG 04/27/2019 12:00:00 AM EST eCW1 ([facility]) Rosuvastatin calcium 10 MG Oral Tablet 04/27/2019 12:00:00 AM EST eCW1 ([facility]) 120 ACTUAT Fluticasone propionate 0.11 MG/ACTUAT Meter ed Dose Inhaler [Flovent] 04/27/2019 12:00:00 AM EST eCW1 ([facility]) Amlodipine 10 MG Oral Tablet 04/27/2019 12:00:00 AM EST eCW1 ([facility]) Apixaban 5 MG 04/27/2019 12:00:00 AM EST eCW1 ([facility]) Rosuvastatin calcium 10 MG Oral Tablet 04/27/2019 12:00:00 AM EST eCW1 ([facility]) 120 ACTUAT Fluticasone propionate 0.11 MG/ACTUAT Meter ed Dose Inhaler [Flovent] 04/27/2019 12:00:00 AM EST eCW1 ([facility]) Amlodipine 10 MG Oral Tablet 04/27/2019 12:00:00 AM EST eCW1 ([facility]) Rosuvastatin calcium 10 MG Oral Tablet 04/27/2019 12:00:00 AM EST eCW1 ([facility]) Amlodipine 10 MG Oral Tablet 04/27/2019 12:00:00 AM EST eCW1 ([facility]) Amlodipine 10 MG Oral Tablet 04/27/2019 12:00:00 AM EST eCW1 ([facility]) Rosuvastatin calcium 10 MG Oral Tablet 04/27/2019 12:00:00 AM EST eCW1 ([facility]) Apixaban 5 MG 04/27/2019 12:00:00 AM EST eCW1 ([facility]) 120 ACTUAT Fluticasone propionate 0.11 MG/ACTUAT Meter ed Dose Inhaler [Flovent] 04/27/2019 12:00:00 AM EST eCW1 ([facility]) Apixaban 5 MG 04/27/2019 12:00:00 AM EST eCW1 ([facility]) 120 ACTUAT Fluticasone propionate 0.11 MG/ACTUAT Meter ed Dose Inhaler [Flovent] 04/27/2019 12:00:00 AM EST eCW1 ([facility]) Amlodipine 10 MG Oral Tablet 04/27/2019 12:00:00 AM EST eCW1 ([facility]) Rosuvastatin calcium 10 MG Oral Tablet 04/27/2019 12:00:00 AM EST eCW1 ([facility]) Amlodipine 10 MG Oral Tablet 04/27/2019 12:00:00 AM EST eCW1 ([facility]) Apixaban 5 MG 04/27/2019 12:00:00 AM EST eCW1 ([facility]) Rosuvastatin calcium 10 MG Oral Tablet 04/27/2019 12:00:00 AM EST eCW1 ([facility]) Apixaban 5 MG 04/27/2019 12:00:00 AM EST eCW1 ([facility]) Depend Underwear Large/XL - 03/18/2019 12:00:00 AM EST eCW1 ([facility]) Doxycycline Monohydrate 100 MG Oral Capsule 03/18/2019 12:00:00 AM EST eCW1 ([facility]) Amlodipine 10 MG Oral Tablet [facility]
[2020-04-14] VITALS (14 sets, daily range): BP systolic 85–135; BP diastolic 44–60
--- NOTE | 2020-04-14 00:06 | HPEPDOC ---
[facility] Medical History & Physical Date of Admission Apr 13, 2020 Date of Service: Apr 13, 2020 Attending Physician: LEANNE BARON MD History and Physical CHIEF COMPLAINT: Dysphagia HISTORY OF PRESENT ILLNESS:. 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 The patient is aphasic at baseline and history is obtained partially from the patient and from the patient's daughter over the phone. Patient's daughter states that in December the patient was admitted [facility] for colonic diverticulitis. She developed an abscess and was transferred to [facility] for IR drainage. She was then returned to [facility] where she was noticed to have increasing right-sided hemiparesis. She received both CT and brain MRI, all which were negative for any strokes. She was evaluated by Dr. 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 The patient's daughter states that since discharge. They've been following with neurology in [place]. She is unsure what the diagnosis is, however, states that since December. Her mom has developed progressively worsening weakness on her right side. Additionally, the patient was noted to have developed difficulty swallowing. Patient's daughter states that today she noticed that her mother was having more difficulty swallowing and had noted a point where the patient appeared to have started choking on her food. There are states that overall it appears that her mother looks like she is struggling more. The patient herself does not admit to any shortness of breath. She does acknowledge difficulty swallowing. On evaluation to the emergency department the patient was vitally stable. An ABG was obtained which demonstrated a pH of 7.23 and a PCO2 80.4. This was repeated 2 hours later which demonstrated. A pH of 7.23 and a PCO2 of 76.3. Patient herself is mentating well. Chest x-ray was obtained which demonstrated a possible right lung infiltrate. A head CT was obtained as well which was negative for any acute pathology. Hospitalist service was consulted and the patient was admitted for further evaluation management PAST MEDICAL HISTORY: 1. 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 2., Hypertension. 3., Hyperlipidemia 4. History of GI bleed 5. History of left leg DVT in April 2016 6. Tobacco abuse. 7. Chronic right second toe ulcer. 8. Sacral pressure ulcer. 9. Colonic diverticular disease. 10. Diverticular abscess status post IR drainage PAST SURGICAL HISTORY: 1. IR abscess drainage at [facility] 12/2019 2. Colonoscopy with 2 hyperplastic polyps removed. 3. Bilateral cataract removal 4. IVC filter placement SOCIAL HISTORY: Patient is a former smoker. Denies any IV or illicit drug use. She lives at home with her son who cares for her. FAMILY HISTORY: Family history is positive for kidney disease. She has 4 sons and 2 daughters, all of which are alive and well ALLERGIES: Please see below. REVIEW OF SYSTEMS: CONSTITUTIONAL: Denies fevers, chills denies night sweats. HEENT:. Admits to dysphagia. Denies odynophagia. Admits to choking on food. CARDIOVASCULAR: Denies chest pain, palpitations or feelings of the heart racing. RESPIRATORY: Admits to shortness of breath. Denies cough. Denies wheezing GASTROINTESTINAL:, Denies abdominal pain Denies nausea, vomiting, diarrhea or constipation. GENITOURINARY:. Denies dysuria or increased frequency. Denies urgency. SKIN: Denies any rashes or lesions MUSCULOSKELETAL: Admits to chronic right-sided arm and leg weakness NEUROLOGICAL:. Admits to chronic hemiparesis, difficulty swallowing and difficulty with speech. PSYCHIATRIC:. Denies depression or anxiety. ENDOCRINE:. Denies heat intolerance or cold intolerance. Denies history of diab etes. HEMATOLOGIC/LYMPHATIC: Denies any history of easy bruising or bleeding. Denies any history of pulmonary embolism. Admits to history of DVT. HOME MEDICATIONS: Please see below. PHYSICAL EXAMINATION: VITAL SIGNS: Temperature 97.8, pulse, 109, respiratory rate 16, blood pressure 140/62, pulse oximetry 100% on 2 L nasal cannula GENERAL APPEARANCE:. Patient is awake, alert and oriented. She does not appear any acute distress. She is lying in stretcher. She is frail-appearing HEENT:, Atraumatic. Normocephalic. Eyes are nonicteric. Trachea is midline. Mucous membranes are pink and moist. She has a left-sided facial droop CARDIOVASCULAR:. Normal S1, S2, tachycardic rate, regular rhythm. No clicks rubs or murmurs auscultated. LUNGS:. Clear breath sounds bilaterally. There is symmetric chest expansion, although poor respiratory effort overall. There is no accessory muscle use. No wheezes rhonchi or rales ABDOMEN:. Soft nondistended, nontender. Normoactive bowel sounds throughout. EXTREMITIES: No Edema. Full and equal pulses bilateral upper and lower extremities. NEUROLOGICAL: Patient has right-sided hemiparesis. She is dysphasic. There is a sided facial droop. PSYCHIATRIC: Mood and affect appear appropriate. LABORATORY DATA: See below. IMAGING: INDICATION: DYSPNEA/COUGH COMPARISON: 12/25/2019 TECHNIQUE: Portable AP view of the chest FINDINGS: The mediastinum and cardiac silhouette are stable and within normal limits for portable technique. The lung vargas demonstrate chronic appearing changes including elevation to the right hemidiaphragm. Mild right basilar atelectasis cannot be excluded. No further consolidation, effusion, or pneumothorax identified. Skeletal structures are intact. IMPRESSION: Chronic stable changes. Cannot exclude subtle right basilar atelectasis. <Electronically signed by Prosper Strange > 04/13/20 1628 PROCEDURE INFORMATION: Exam: CT Head Without Contrast Exam date and time: 04/13/2020 5:09 PM Age: 74 years old Clinical indication: Pain; Headache; Additional info: R flaccidity TECHNIQUE: Imaging protocol: Computed tomography of the head without contrast. Radiation optimization: All CT scans at this facility use at least one of these dose optimization techniques: automated exposure control; mA and/or kV adjustment per patient size (includes targeted exams where dose is matched to clinical indication); or iterative reconstruction. COMPARISON: CT Head without contrast 09/19/2017 4:43 PM FINDINGS: Brain: There is no acute intracranial hemorrhage, cerebral edema, or midline shift. Minor chronic small vessel ischemic disease is noted in the cerebral white matter. Cerebral ventricles: No hydrocephalus. Bones/joints: No acute fracture. Paranasal sinuses: There is no acute sinusitis. Mastoid air cells: There is partial opacification of the bilateral mastoid air cells. Orbital cavity: Unremarkable as visualized. Vasculature: Atherosclerotic calcifications are seen involving the cavernous carotid arteries. Soft tissues: Unremarkable. IMPRESSION: No acute intracranial abnormality. Electronically signed by: Marvin Marsh On 04/13/2020 17:19:47 PM MICROBIOLOGY: Please see below. ASSESSMENT: Patient is a 74-year-old female with a past medical history significant for chronic right-sided hemiparesis and questionable diagnosis of motor neuron disease such as ALS presented to the [facility] emergency department with complaint of dysphagia and choking. . PLAN: 1. Dysphagia -Per patient's daughter, the patient was sent emergency department as the daughter was concerned that her mother was having more difficulty swallowing. Patient's daughter was contacted over telephone this evening, at which which she stated that she had witnessed her mom having more difficulty swallowing today and had seen her choking on her food. -It appears the patient has had chronic right hemiparesis as well as dysphagia going on for some time dating back to at least December. She was evaluated by neurology, Dr. Ariza during her previous hospitalization. There is question as to whether she has a motor neuron disease such as ALS. Patient's daughter states that she does follow with a neurologist out of [place]. She is unsure of the exact diagnosis. -Patient's dysphagia may be secondary to her motor neuron disease such as ALS. -Will make patient NPO. -Aspiration precautions -Speech and Swallow Eval -Obtain records from patients Neurologist in [place] -If patient is unable to swallow and continues to aspirate she may need J tube placed 2. Aspiration pneumonitis vs pneumonia -Patient was noted to have an episode of choking. Chest x-ray does demonstrate a questionable right lung infiltrate. -Have started Zosyn. Procalcitonin pending -WBC is not elevated and patient is not febrile however her aspiration event had occurred just prior to presentation. 3. Hypercarbia -Patient is noted to be hypercarbic. She is not having difficulty breathing. pH of 7.23 and Pco2 of 80. Her serum bicarb is 31. Given her possible motor neuron disease her hypercarbia could be secondary to poor respiratory mechanics -At this time will hold off on bilevel. Patient is mentating fine. If ABG worsens will consider initiating bilevel 4. Chronic Right sided hemiparesis -Patient has chronic right sided hemiparesis. This is thought to be secondary to a motor neuron disease such as ALS. She was on Riluzole previously however this is currently not on her medications list. She did receive a CT of the head in the ED however it has been negative -Will need to obtain patients Neurology records 5. Hypertension -Continue Norvasc. 6. History of Recurrent DVT -Continue Eliquis 7. DVT prophylaxis -[facility] Vital Signs Vital Signs Date Time Temp Pulse Resp B/P (MAP) Pulse Ox O2 Delivery O2 Flow Rate FiO2 04/13/20 20:12 92 04/13/20 18:12 140/62 (88) 04/13/20 17:22 Nasal Cannula 2.0 04/13/20 17:12 20 04/13/20 16:59 100 04/13/20 16:15 97.5 Laboratory Data Labs 24H Laboratory Tests 2 04/13/20 16:08: Bedside Glucose (Misc Panel) 122H 04/13/20 16:33: Blood Gas Bicarbonate Standard 26.6H, Arterial Blood pH 7.230*L, Arterial Blood Partial Pressure CO2 80.4*H, Arterial Blood Partial Pressure O2 290.5H, Arterial Blood Total CO2 35.4H, Arterial Blood HCO3 32.9H, Arterial Blood Base Excess 2.3H, Arterial Blood Oxygen Saturation 99.7H 04/13/20 16:35: Prothrombin Time 15.1H, Prothromb Time International Ratio 1.16 04/13/20 16:36: Immature Granulocyte % (Auto) 0.5, Neutrophils (%) (Auto) 88.4H, Lymphocytes (%) (Auto) 6.0L, Monocytes (%) (Auto) 4.7, Eosinophils (%) (Auto) 0.0, Basophils (%) (Auto) 0.4, Neutrophils # (Auto) 7.0, Lymphocytes # (Auto) 0.5L, Monocytes # (Auto) 0.4, Eosinophils # (Auto) 0.0, Basophils # (Auto) 0.0, Nucleated Red Blood Cells % (auto) 0.0, Anion Gap 7L, Glomerular Filtration Rate > 60.0, Lactic Acid Level 1.0, Calcium Level 9.7, Total Bilirubin 0.5, Direct Bilirubin 0.2, Aspartate Amino Transf (AST/SGOT) 27, Alanine Aminotransferase (ALT/SGPT) 30, Alkaline Phosphatase 169H, Total Creatine Kinase 52, Creatine Kinase MB 1.1, Creatine Kinase MB Relative Index 2.12, Troponin I < 0.02, Total Protein 7.1, Albumin 2.7L, Albumin/Globulin Ratio 0.6L 04/13/20 18:28: Blood Gas Bicarbonate Standard 25.7, Arterial Blood pH 7.234*L, Arterial Blood Partial Pressure CO2 76.3*H, Arterial Blood Partial Pressure O2 224.6H, Arterial Blood Total CO2 33.9H, Arterial Blood HCO3 31.5H, Arterial Blood Base Excess 1.3, Arterial Blood Oxygen Saturation 99.5H 04/13/20 20:32: Coronavirus (COVID-19)(PCR) NEGATIVE, Influenza Type A (RT-PCR) NEGATIVE, Influenza Type B (RT-PCR) NEGATIVE, Respiratory Syncytial Virus (PCR) NEGATIVE CBC/BMP Laboratory Tests 04/13/20 16:36 Microbiology Microbiology 04/13/20 Blood Culture, Received Pending 04/13/20 Blood Culture, Received Pending Home Medications Scheduled Amlodipine Besylate (Amlodipine Besylate) 10 Mg Tablet, 10 MG PO DAILY Apixaban (Eliquis) 5 Mg Tablet, 5 MG PO BID Fluticasone Propionate (Flovent Hfa) 110 Mcg/Act Aer.w.adap, 2 PUFF INH BID Rosuvastatin Calcium (Rosuvastatin Calcium) 10 Mg Tablet, 10 MG PO DAILY Allergies Coded Allergies: No Known Allergies (Unverified , 04/21/19) ATTENDING NOTE I have personally evaluated and examined the patient. Discussed with resident/student regarding plan of care and agree with the above assessment and plan. A-FIB/CHADSVASC A-FIB History Current/History of A-Fib/PAF?: No AMINTA MCALLISTER DO Apr 14, 2020 00:06 LEANNE BARON MD Apr 14, 2020 05:04
[2020-04-14] MEDS: PIPERACILLIN/TAZOBACTAM SOD 3.375 GM in D5W MINI-BAG PLUS 50 ML IV SCH ×5 (01:15→22:31)
[2020-04-14 07:02] LABS: HEMATOCRIT 48.3 % (36.0-47.0); HEMOGLOBIN 14.6 g/dl (12.0-15.5); MEAN CORPUSCULAR HEMOGLOBIN 28.1 pg (27.0-33.0); MEAN CORPUSCULAR HGB CONC 30.2 g/dl (32.0-36.5); MEAN CORPUSCULAR VOLUME 92.9 fl (80.0-96.0); PLATELET COUNT, AUTOMATED 239 10^3/uL (150-450); WHITE BLOOD COUNT 7.4 10^3/uL (4.0-10.0)
[2020-04-14 07:27] LABS: ALBUMIN 2.5 GM/DL (3.2-5.2); ALT/SGPT 24 U/L (12-78); BILIRUBIN,TOTAL 0.3 MG/DL (0.2-1.0); BLOOD UREA NITROGEN 20 MG/DL (7-18); CALCIUM LEVEL 9.4 MG/DL (8.8-10.2); CARBON DIOXIDE LEVEL 35 MEQ/L (21-32); CHLORIDE LEVEL 98 MEQ/L (98-107); CREATININE FOR GFR 0.58 MG/DL (0.55-1.30); GLOMERULAR FILTRATION RATE > 60.0 (>39); GLUCOSE, FASTING 109 MG/DL (70-100); POTASSIUM SERUM 3.9 MEQ/L (3.5-5.1); SODIUM LEVEL 139 MEQ/L (136-145); TOTAL PROTEIN 6.5 GM/DL (6.4-8.2)
--- NOTE | 2020-04-14 07:40 | ECGEPIP ---
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
[2020-04-14 08:56] LABS: ABG BASE EXCESS 3.5 (-2.0-2.0); ABG HCO3 37.5 MEQ/L (22.0-26.0); ABG O2 SATURATION 99.7 % (95.0-99.0); ABG STANDARD HCO3 27.6 MEQ/L (22.0-26.0); ABG TOTAL CO2 41.2 MEQ/L (23.0-31.0)
[2020-04-14 08:59] LABS: ABG PARTIAL PRESSURE CO2 119.7 mmHg (35.0-45.0); ABG pH (ARTERIAL) 7.114 UNITS (7.350-7.450)
[2020-04-14] MEDS ORDERED: ENOXAPARIN 40MG/0.4ML SYRINGE (J1650 PER 10MG) SC SCH (09:00)
[2020-04-14] MEDS ORDERED: ROSUVASTATIN 10 MG TAB (CRESTOR) PO SCH (09:00)
[2020-04-14] MEDS ORDERED: MIDAZOLAM INJ 2MG/2ML VIAL (J2250 PER 1MG) As Ordered ONE (09:17)
--- NOTE | 2020-04-14 09:29 | IPN ---
PROGRESS NOTE DATE: 04/14/2020 SUBJECTIVE: Nedra is seen in PCU. She was admitted after suspected aspiration event, was having difficulty swallowing. This morning she is barely responsive and stat ABG has just been ordered. Apparently she was verbal last evening but is not responding at this time. Her primary care provider is Dr. Yaquelin Diaz at the [facility]. I reviewed those office records. The patient was last seen there 07/01/2019 and has not had a visit since her medical condition changed dramatically in the fall. She had some diverticular abscesses that were drained at [facility] and then developed right hemiparesis there. She has been seen by Dr. Ariza from [facility] who feels she has an upper motor neuron condition but her neurologic care is through a neurologist in [place] and there are absolutely no records that have been sent to her primary care provider. I do not have anything in her chart to help us with her neurologic situation. At the time of her last office visit almost a year ago, she was being treated for hypertension and a DVT 06/25, hyperlipidemia, vitamin B deficiency, had abnormal low dose lung CT 03/30 that showed two new ground glass densities for which followup was recommended. She had a colonoscopy in 2018. At the time of that visit she was still smoking. PHYSICAL EXAMINATION: VITAL SIGNS: Blood pressure 100/50, pulse 66, respiratory rate 18, 100% O2 saturation. GENERAL APPEARANCE: Side effect is lying in bed. She is not responding to verbal or sternal stimulation. LUNGS: Decreased breath sounds. HEART: Regular rate and rhythm. ABDOMEN: Soft, nontender. . EXTREMITIES: No peripheral edema. NEUROLOGIC: Right hemiparesis. LABS: White count 7.4, hemoglobin 14, platelets 239. Sodium 139, potassium 3.9, BUN 20, creatinine 0.5, glucose 109. ABG from last night was 7.23/76/200. COVID is negative. Chest x-ray showed chronic changes, positive for atelectasis. IMPRESSION AND PLAN: 1. Altered mental status, suspect hypercapnia has worsened overnight. Stat ABG has been ordered. I consulted Pulmonology. I have a call out for Dr. Sargent. 2. 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 Unfortunately, there are no records at all from neurology in [place] to her primary care provider. We will try to obtain these but at this point the assumption is that she is aspirating and we will keep her NPO and give her IV fluids and talk about a PEG tube. I will have to reach out to her daughter about this. 3. History of hypertension. Her blood pressure is on the low side right now. 4. History of sacral ulcer. Skin care and attention towards nutrition.
[2020-04-14] MEDS: MIDAZOLAM INJ 2MG/2ML VIAL (J2250 PER 1MG) IV PRN ×2 (09:30→11:00)
[2020-04-14] MEDS ORDERED: REFRIGERATOR IV KEYS XX PRN (09:30)
--- NOTE | 2020-04-14 09:44 | REP ---
INDICATION: s/p intubation. COMPARISON: Comparison chest x-ray 13 April 2020. TECHNIQUE: Portable upright AP chest radiograph. FINDINGS: Endotracheal tube is been passed into good position at the level of the proximal clavicles. NG tube has been passed but is in atypical position well to the right of midline in the upper abdomen. Right hemidiaphragm is slightly elevated. The lung vargas are clear. Pleural angles are sharp.. IMPRESSION: Endotracheal tube in good position. NG tube position is atypical, well to the right of midline in the upper abdomen. <Electronically signed by Patrick Lao > 04/14/20 [id number]
[2020-04-14] MEDS: FLUTICASONE HFA 110 MCG 12 GM INHALER (FLOVENT) INH SCH ×2 (10:14→20:05)
[2020-04-14 10:16] LABS: ABG BASE EXCESS 4.7 (-2.0-2.0); ABG HCO3 31.8 MEQ/L (22.0-26.0); ABG O2 SATURATION 94.4 % (95.0-99.0); ABG PARTIAL PRESSURE CO2 57.1 mmHg (35.0-45.0); ABG PARTIAL PRESSURE O2 61.6 mmHg (75.0-100.0); ABG STANDARD HCO3 28.6 MEQ/L (22.0-26.0); ABG TOTAL CO2 33.5 MEQ/L (23.0-31.0); ABG pH (ARTERIAL) 7.363 UNITS (7.350-7.450)
[2020-04-14] MEDS: IPRATROPIUM 0.5MG/ALBUTEROL 2.5MG INH SOL UD 3ML (DUONEB) NEB SCH ×3 (11:41→20:05)
[2020-04-14] MEDS ORDERED: SODIUM CHLORIDE 0.9% 1000ML IV ONE (12:15)
--- NOTE | 2020-04-14 12:21 | RO ---
OPERATIVE NOTE DATE OF OPERATION: 04/14/2020 PREOPERATIVE DIAGNOSIS: Acute respiratory failure with respiratory acidosis. POSTOPERATIVE DIAGNOSIS: Acute respiratory failure with respiratory acidosis. PROCEDURE PERFORMED: Endotracheal tube intubation via direct laryngoscopy. SURGEON: Jax Sargent M.D. HAND KISS SETTER: None. ANESTHESIA: DESCRIPTION OF PROCEDURE: I was called stat to the patient's bedside. Arterial blood gases performed earlier in the day showed a pH of 7.11, pCO2 of 119, pO2 of 262. She was moving very little air and is obtunded. Emergent endotracheal tube intubation was felt to be warranted. The GlideScope was placed into the upper airway and the epiglottis and vocal cords visualized. There were some dry secretions. A #8 endotracheal tube was placed through the vocal cords to a distance of 21 cm. The balloon was inflated. CO2 was appreciated on the monitor and good bilateral breath sounds were noted. A postprocedural chest x-ray confirms adequate placement of the endotracheal tube.
--- NOTE | 2020-04-14 12:21 | IPN ---
PROGRESS NOTE DATE: 04/14/2020 Nedra had a severe decline in function soon after my dictation. We did a stat ABG and the pH was 7.11, pCO2 of 115. I called Dr. Sargent who attended the patient promptly. She was intubated and transferred to ICU setting. I called Ms. Bledsoe's daughter, Tammie ([phone]), who is apparently the patient's ultimate decision maker and not the daughter, Hansa, who is listed in [place]. I discussed the mother's decline, intubation, and transfer to ICU setting. She understood and accepted this. She clarified the patient is FULL CODE with no restrictions as far intubation, CPR, etc. I tried to clarify the patient's neurologic situation. This patient was most recently in [place] re[facility] and was discharged about a month ago, and has been home for less than a month. While she was in [place], she went down to [facility] to see a physician that the daughter thought might be a neurologist, but it is Dr. Nicho Cotton, who is a surgeon, and I think that was a follow-up appointment for her abscesses. We have no neurologist of record and as I noted previously, Dr. Diaz's records have no notes from any neurologist from [place] either. I called Dr. Liu who has agreed to see the patient in consultation. He is aware Dr. Dr. 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
--- NOTE | 2020-04-14 12:30 | RO ---
OPERATIVE NOTE DATE OF OPERATION: 04/14/2020 PREOPERATIVE DIAGNOSIS: Shock. POSTOPERATIVE DIAGNOSIS: Shock. PROCEDURE PERFORMED: Emergent right subclavicular CVP placement. SURGEON: Jax Sargent M.D. AGRICULTURAL RESEARCH ENGINEER: None. ANESTHESIA: DESCRIPTION OF PROCEDURE: The patient was seen in the intensive care unit having recently been intubated. Blood pressures were very low and venous access limited. An emergent central line was felt necessary. The skin overlying the right subclavian vein was prepped with ChloraPrep and draped in a sterile fashion. A 25-gauge needle was used to raise the skin wheel with 1% Lidocaine. Thereafter, a 17-gauge introducer needle was placed in through the skin and into the subclavian vein. Free return of venous blood was obtained. A vascular tipped guidewire was advanced. There was some difficulty in advancing the wire; however, with repeated efforts, the wire was able to be advanced. A dilator was placed over the wire and a triple lumen catheter placed to a distance of 16 cm. The catheter was sewn in place and a sterile dressing applied. A postprocedure chest x-ray is pending. There were no apparent complications.
[2020-04-14] MEDS: ROSUVASTATIN 10 MG TAB (CRESTOR) NG SCH (12:33)
[2020-04-14] MEDS: APIXABAN 5 MG TAB (ELIQUIS) NG SCH ×2 (12:34→20:12)
[2020-04-14] MEDS: MIDAZOLAM HCL 100 MG in D5W 80 ML IV SCH (12:38)
--- NOTE | 2020-04-14 12:43 | REP ---
INDICATION: central line placement. COMPARISON: Portable chest earlier today 9:27 a.m.. TECHNIQUE: SINGLE PORTABLE AP VIEW OF THE CHEST WAS PERFORMED. FINDINGS: The tracheal tube tip is approximately 3.3 cm above the emmie. Nasogastric tube is seen with side port at the gastroesophageal junction. Right subclavian central venous catheter is seen with the distal end coursing cephalad into the right jugular vein, the tip is not visualized. There is no pneumothorax. No new lung findings are seen. The heart mediastinum are unchanged. IMPRESSION: Right central venous catheter has been placed into the subclavian vein with the distal end coursing cephalad into the right jugular vein, the distal end is not visualized. No pneumothorax. A nasogastric tube side port is at the gastroesophageal junction and should be advanced. <Electronically signed by James Cordero > 04/14/20 [id number]
[2020-04-14] MEDS: KCL 20MEQ IN D5/0.45NS 1000ML 1,000 ML IV SCH (13:17)
--- NOTE | 2020-04-14 14:35 | CCN ---
CRITICAL CARE NOTE DATE: 04/14/2020 I was called to evaluate this 74-year-old female admitted with progressive neuromuscular disease and dysphagia. This morning she was difficult to arouse, and arterial blood gases show a metabolic acidosis. Temperature is 96, pulse rate 66, respirations 12 and ineffective, blood pressure 100/50. June Coma Scale calculates at 6-7. HEENT: She has a staring gaze. Her neck is supple. There is no meningismus. Heart sounds are regular without appreciable murmur. Breath sounds marked diminished. Scattered large airway rhonchi. Abdomen is soft with intact bowel sounds. Extremities: Pulses are palpable times four, and there is rigidity noted. DIAGNOSTIC STUDIES: Her white cell count is 7.4, hemoglobin 14.6, hematocrit 48.3, platelet count 239,000. Differential white cell count yesterday showed 88% neutrophils. The electrolytes were reviewed and assessed. Her sodium is 139, potassium 3.9, chloride 98, CO2 is 35, BUN 20, creatinine 0.58, glucose 109. Bilirubin 0.3, AST 14, ALT 24, alkaline phosphatase 139. The albumin is 2.5. Arterial blood gases showed a pH of 7.114, pCO2 of 119, pO2 of 262. The primary problem requiring critical attention is acute respiratory failure with hypercarbia. The patient will require intubation and formal ventilatory support. We will arrange for this to be performed urgently. Progressive neuromuscular disease. The etiology is unclear. Neurology will be consulted. Aspiration event. Once the patient is intubated we will obtain cultures. Zosyn has been prescribed empirically. Deep venous thrombosis (DVT) prophylaxis is being addressed with sequential hose, and the patient is on Eliquis. Ulcer prophylaxis will be addressed with Protonix. The patient's condition is critical. We will facilitate transfer immediately to the intensive care unit. I have updated the primary care service as well as the intensive care unit (ICU) team on the plans of care and the need for emergent intubation. Seventy-eight minutes was spent in the provision of bedside critical care and coordination, exclusive of any procedure time.
[2020-04-14] MEDS: NOREPINEPHRINE BITARTRATE 8 MG in D5W 492 ML IV SCH (14:45)
[2020-04-14] MEDS: CHLORHEXIDINE GLUCONATE 0.12 % 15ML UDC (PERIDEX ORAL RINSE) MT SCH ×2 (16:12→20:12)
[2020-04-14] MEDS: PANTOPRAZOLE 40MG VIAL (C9113 PER 1) IV SCH (16:12)
[2020-04-14] MEDS ORDERED: NS 500 ML IV ONE (17:30)
[2020-04-15] VITALS (18 sets, daily range): BP systolic 97–112; BP diastolic 47–76
[2020-04-15] MEDS: KCL 20MEQ IN D5/0.45NS 1000ML 1,000 ML IV SCH ×3 (01:26→19:22)
[2020-04-15] MEDS: NOREPINEPHRINE BITARTRATE 8 MG in D5W 492 ML IV SCH ×2 (02:20→20:00)
[2020-04-15] MEDS: PIPERACILLIN/TAZOBACTAM SOD 3.375 GM in D5W MINI-BAG PLUS 50 ML IV SCH ×4 (05:26→23:21)
[2020-04-15 05:47] LABS: BASO # 0.1 10^3/uL (0.0-0.2); BASO % 0.6 % (0.0-1.0); EOS % 0.1 % (0.0-3.0); HEMATOCRIT 39.1 % (36.0-47.0); LYMPH # 0.7 10^3/uL (1.5-5.0); LYMPH % 8.2 % (24.0-44.0); MEAN CORPUSCULAR HEMOGLOBIN 27.9 pg (27.0-33.0); MEAN CORPUSCULAR HGB CONC 31.2 g/dl (32.0-36.5); MEAN CORPUSCULAR VOLUME 89.3 fl (80.0-96.0); MONO # 0.9 10^3/uL (0.0-0.8); MONO % 11.1 % (0.0-5.0); NEUTROPHILS # 6.4 10^3/uL (1.5-8.5); NEUTROPHILS % 79.6 % (36.0-66.0); PLATELET COUNT, AUTOMATED 230 10^3/uL (150-450); RED BLOOD COUNT 4.38 10^6/uL (4.00-5.40); WHITE BLOOD COUNT 8.1 10^3/uL (4.0-10.0)
[2020-04-15 05:51] LABS: ABG BASE EXCESS 6.1 (-2.0-2.0); ABG HCO3 30.4 MEQ/L (22.0-26.0); ABG PARTIAL PRESSURE CO2 42.5 mmHg (35.0-45.0); ABG PARTIAL PRESSURE O2 71.9 mmHg (75.0-100.0); ABG TOTAL CO2 31.7 MEQ/L (23.0-31.0); ABG pH (ARTERIAL) 7.472 UNITS (7.350-7.450)
[2020-04-15 05:54] LABS: HEMOGLOBIN 12.2 g/dl (12.0-15.5)
[2020-04-15 06:25] LABS: ALBUMIN 2.1 GM/DL (3.2-5.2); ALT/SGPT 12 U/L (12-78); BILIRUBIN,TOTAL 0.6 MG/DL (0.2-1.0); BLOOD UREA NITROGEN 21 MG/DL (7-18); CALCIUM LEVEL 8.4 MG/DL (8.8-10.2); CARBON DIOXIDE LEVEL 34 MEQ/L (21-32); CHLORIDE LEVEL 103 MEQ/L (98-107); CHOLESTEROL LEVEL 85 MG/DL (< 200); CPK CREATINE PHOSPHOKINASE 86 U/L (26-192); CREATININE FOR GFR 0.68 MG/DL (0.55-1.30); GLOMERULAR FILTRATION RATE > 60.0 (>39); GLUCOSE, FASTING 164 MG/DL (70-100); LDH LACTATE DEHYDROGENASE 126 U/L (84-246); PHOSPHORUS LEVEL 1.5 MG/DL (2.5-4.9); POTASSIUM SERUM 3.8 MEQ/L (3.5-5.1); SODIUM LEVEL 140 MEQ/L (136-145); TOTAL PROTEIN 5.5 GM/DL (6.4-8.2); TRIGLYCERIDES LEVEL 97 MG/DL (<150)
[2020-04-15] MEDS: IPRATROPIUM 0.5MG/ALBUTEROL 2.5MG INH SOL UD 3ML (DUONEB) NEB SCH ×4 (07:12→20:14)
[2020-04-15] MEDS: FLUTICASONE HFA 110 MCG 12 GM INHALER (FLOVENT) INH SCH ×2 (07:12→20:12)
--- NOTE | 2020-04-15 07:42 | REP ---
INDICATION: ett COMPARISON: 04/14/2020 TECHNIQUE: Portable AP view of the chest FINDINGS: Endotracheal tube 2 cm above the emmie. Nasogastric tube side port is at the level of diaphragm and warrants advancement. Cardiac silhouette is normal/stable. Lung vargas demonstrate stable chronic changes. No obvious focal consolidation, effusion, or pneumothorax. Skeletal structures stable. IMPRESSION: 1. Endotracheal tube 2 cm above the emmie. 2. Nasogastric tube warrants re-evaluation and advancement. 3. No acute consolidation, effusion, or pneumothorax. <Electronically signed by Prosper Strange > 04/15/20 0738
[2020-04-15] MEDS: ROSUVASTATIN 10 MG TAB (CRESTOR) NG SCH (08:25)
[2020-04-15] MEDS: APIXABAN 5 MG TAB (ELIQUIS) NG SCH ×2 (08:25→20:34)
[2020-04-15] MEDS: CHLORHEXIDINE GLUCONATE 0.12 % 15ML UDC (PERIDEX ORAL RINSE) MT SCH ×2 (08:25→20:33)
[2020-04-15] MEDS: PANTOPRAZOLE 40MG VIAL (C9113 PER 1) IV SCH (10:27)
--- NOTE | 2020-04-15 11:07 | CCN ---
CRITICAL CARE NOTE DATE: 04/15/2020 START TIME: 0936 STOP TIME: 1010 SUBJECTIVE: I attended Nedra Bledsoe here in the intensive care unit. The patient has been examined, chart reviewed, and I spoke at length with Dr. Garcia from the hospitalist service. OBJECTIVE: VITAL SIGNS: T-max overnight 98.5, blood pressure 97 to 112, heart rate generally in the 80s to low 100s with a sinus mechanism. She occasionally does over-breathe the ventilatory. INTAKE AND OUTPUT: [id number]-yd-huxrybmt 1476 mL with only 575 mL out. GENERAL APPEARANCE: Currently she is sedate. HEENT: Pupils react. Sclerae clear. NECK: Trachea is in the midline. CHEST: Clear both to auscultation and percussion and no significant focal adventitious breath sounds are identified. CARDIAC: Generally regular. Peripheral pulses palpable. Trace edema. ABDOMEN: Soft with active bowel sounds. No convincing organomegaly or masses. EXTREMITIES: Without cyanosis or clubbing. NEUROLOGIC: She does reach for the tube and responds appropriately to noxious stimuli. LABORATORY DATA: White blood cell count 8.1, hemoglobin 12.2, platelet count 230,000, 79% segs, and no bands. Sodium 148, K of 3.8, chloride of 103, CO2 of 34, BUN 21, creatinine 0.68, glucose 164. Albumin 2.1, phosphorus 1.5. Blood gas done on an assist control mode tidal volume 350, PEEP of 5, FiO2 of 21% has a pH of 7.472, pCO2 of 42.5, and pO2 of 71.9. IMAGING DATA: Chest x-ray shows no acute findings. Lines and tubes in good position. MICROBIOLOGY DATA: No new culture data. All blood cultures negative. MEDICATION REVIEW: List has been reviewed. She remains on Zosyn and very low dose Levophed. Her Versed was just mildly increased due to her reaching for the endotracheal tube. IMPRESSION: Most pressing problems requiring my presence at the bedside: 1. Acute hypercapnic respiratory failure. 2. Progressive neuromuscular disease. 3. Suspected aspiration. PLAN: At this point, we will make ventilator manipulations as we are able. I spoke with Dr. Garcia and they are still working out her primary neurologic issue, and neurology is reportedly to reevaluate her today. In the interim, we will change her to a ventilator mode that will allow her some work of breathing so she does not become totally deconditioned. We will begin enteral feeds. She is on ulcer and deep vein thrombosis (DVT) prophylaxis. Intravenous (IV) fluids being managed by the primary service. I am in full agreement with the current antimicrobial regimen. At this point, we will make the changes as outlined above. She remains critically ill. Prognosis really depends upon what her primary neurologic dysfunction is. I left the bedside at 1010 hours. CRITICAL CARE TIME: 34 minutes of critical care time delivered at the bedside not including procedures.
--- NOTE | 2020-04-15 12:40 | IPN ---
PROGRESS NOTE DATE: 04/15/2020 SUBJECTIVE: Nedra is seen in ICU. She was intubated yesterday. She remains on pressors intermittently. Urine output is poor. I think her oral intake as an outpatient was probably quite low with esophageal problems so we have some catching up to do with volume status. Nephrology was consulted yesterday, waiting for their evaluation. OBJECTIVE: VITAL SIGNS: 97/51, afebrile. GENERAL: She is intubated. Moves her left hand on command. LUNGS: Decreased breath sounds but clear. HEART: Regular rate and rhythm. ABDOMEN: Soft, nontender. NEUROLOGIC: Right hemiparesis. EXTREMITIES: Trace peripheral edema. SKIN: She has an approximately 3 cm what looks like a stage II decubitus over the mid sacrum. LABS: Sodium 148, potassium 3.8, BUN 21, creatinine 0.6, glucose 164, white count 8, hemoglobin 12.2, platelets 230. Chest x-ray showed no acute findings. IMPRESSION: 1. Respiratory failure requiring intubation. Appreciate the help of Dr. Sargent and the pulmonology service. The patient is intubated and ventilatory management is being managed by Dr. Ulrich today. 2. 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 Waiting for a formal neurology evaluation. The patient was seen by Dr. Ariza in December who thought she had ALS, had a treatment plan that never got put into effect due to the patient being transferred to [facility] and then going to a rehab center in [place]. 3. Decubitus sacral ulcer secondary to bed rest and hygiene. Wound team has been consulted. 4. 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 Waiting for neurology to see her. 5. History of DVT 06/25. DVT prophylaxis has been ordered. 6. Question of aspiration pneumonia. She is on IV Zosyn, day number two. 7. Esophageal problems/swallowing difficulties. Probably needs a PEG tube. I will have to address this next week. 8. Hyperlipidemia. Continue her Crestor 10 mg daily. 9. History of DVT. She is on Eliquis 5 mg twice a day which we will continue.
[2020-04-15] MEDS: MIDAZOLAM HCL 100 MG in D5W 80 ML IV SCH (19:23)
[2020-04-16] VITALS (28 sets, daily range): BP systolic 59–112; BP diastolic 44–58
[2020-04-16] MEDS: KCL 20MEQ IN D5/0.45NS 1000ML 1,000 ML IV SCH ×4 (03:38→19:21)
[2020-04-16] MEDS: PIPERACILLIN/TAZOBACTAM SOD 3.375 GM in D5W MINI-BAG PLUS 50 ML IV SCH ×4 (03:38→22:52)
[2020-04-16 04:53] LABS: BASO # 0.1 10^3/uL (0.0-0.2); BASO % 0.6 % (0.0-1.0); EOS # 0.1 10^3/uL (0.0-0.5); EOS % 0.6 % (0.0-3.0); HEMATOCRIT 38.2 % (36.0-47.0); LYMPH # 0.7 10^3/uL (1.5-5.0); MEAN CORPUSCULAR HEMOGLOBIN 28.1 pg (27.0-33.0); MEAN CORPUSCULAR HGB CONC 31.4 g/dl (32.0-36.5); MEAN CORPUSCULAR VOLUME 89.5 fl (80.0-96.0); MONO # 0.8 10^3/uL (0.0-0.8); NEUTROPHILS # 6.2 10^3/uL (1.5-8.5); NEUTROPHILS % 79.3 % (36.0-66.0); PLATELET COUNT, AUTOMATED 212 10^3/uL (150-450); RED BLOOD COUNT 4.27 10^6/uL (4.00-5.40); WHITE BLOOD COUNT 7.9 10^3/uL (4.0-10.0)
[2020-04-16] MEDS: NOREPINEPHRINE BITARTRATE 8 MG in D5W 492 ML IV SCH (05:00)
[2020-04-16 05:38] LABS: ABG HCO3 24.1 MEQ/L (22.0-26.0); ABG O2 SATURATION 98.3 % (95.0-99.0); ABG PARTIAL PRESSURE CO2 33.3 mmHg (35.0-45.0); ABG PARTIAL PRESSURE O2 107.6 mmHg (75.0-100.0); ABG STANDARD HCO3 25.4 MEQ/L (22.0-26.0); ABG TOTAL CO2 25.1 MEQ/L (23.0-31.0); ABG pH (ARTERIAL) 7.477 UNITS (7.350-7.450)
[2020-04-16 05:56] LABS: ALBUMIN 1.9 GM/DL (3.2-5.2); ALT/SGPT 11 U/L (12-78); BILIRUBIN,TOTAL 0.4 MG/DL (0.2-1.0); BLOOD UREA NITROGEN 10 MG/DL (7-18); CALCIUM LEVEL 8.6 MG/DL (8.8-10.2); CARBON DIOXIDE LEVEL 23 MEQ/L (21-32); CHLORIDE LEVEL 111 MEQ/L (98-107); CHOLESTEROL LEVEL 71 MG/DL (< 200); CPK CREATINE PHOSPHOKINASE 75 U/L (26-192); CREATININE FOR GFR 0.53 MG/DL (0.55-1.30); GLOMERULAR FILTRATION RATE > 60.0 (>39); GLUCOSE, FASTING 154 MG/DL (70-100); LDH LACTATE DEHYDROGENASE 222 U/L (84-246); PHOSPHORUS LEVEL 1.2 MG/DL (2.5-4.9); SODIUM LEVEL 143 MEQ/L (136-145); TRIGLYCERIDES LEVEL 64 MG/DL (<150)
[2020-04-16] MEDS: FLUTICASONE HFA 110 MCG 12 GM INHALER (FLOVENT) INH SCH ×2 (07:45→19:50)
[2020-04-16] MEDS: IPRATROPIUM 0.5MG/ALBUTEROL 2.5MG INH SOL UD 3ML (DUONEB) NEB SCH ×4 (07:45→19:50)
[2020-04-16] MEDS: CHLORHEXIDINE GLUCONATE 0.12 % 15ML UDC (PERIDEX ORAL RINSE) MT SCH ×2 (09:27→20:43)
[2020-04-16] MEDS: ROSUVASTATIN 10 MG TAB (CRESTOR) NG SCH (09:32)
[2020-04-16] MEDS: APIXABAN 5 MG TAB (ELIQUIS) NG SCH ×2 (09:32→20:43)
[2020-04-16] MEDS: PANTOPRAZOLE 40MG VIAL (C9113 PER 1) IV SCH (09:32)
--- NOTE | 2020-04-16 10:08 | REP ---
INDICATION: ett. COMPARISON: 04/15/2020. TECHNIQUE: SINGLE PORTABLE AP VIEW OF THE CHEST WAS PERFORMED. FINDINGS: Right central venous catheter is again seen coursing cephalad into the right jugular vein. The endotracheal tube is unchanged with the tip between the level of the clavicles and emmie. Nasogastric tube is seen with side port just distal to the gastroesophageal junction. Heart is normal in size. There is mild calcification of the thoracic aorta. The mediastinal silhouette is unchanged. There is new mild right base atelectasis/infiltrate along the diaphragm. IMPRESSION: New mild atelectasis/infiltrate along the right diaphragm. <Electronically signed by James Cordero > 04/16/20 1007
--- NOTE | 2020-04-16 11:46 | IPN ---
PROGRESS NOTE DATE: 04/16/2020 SUBJECTIVE: Nedra is requiring ventilatory support, tolerating tube feedings, waiting for neurology's input. Per nursing staff, was seen by Dr. Liu yesterday. PHYSICAL EXAMINATION: Afebrile. Vitals signs stable. Systolic pressure around 100. Not currently on pressors. LUNGS: Decreased breath sounds. Clear. HEART: Regular rhythm. ABDOMEN: Soft, nontender. Right hemiparesis. No peripheral edema. LABORATORY DATA: CBC unremarkable. BMP unremarkable. Albumin is 1.9. PLAN: Continue ventilatory support for respiratory failure and await neurology's input concerning her possible upper motor neuron disease. She is still on Zosyn for aspiration pneumonia, which is day #3.
[2020-04-16] MEDS: NEUTRA-PHOS 1.5 GM PACKET PO SCH ×3 (11:54→20:43)
--- NOTE | 2020-04-16 13:11 | CR ---
CONSULTATION DATE: 04/14/2020 REFERRING PHYSICIAN: Nicho Garcia MD REASON FOR CONSULTATION: Motor neuron disease. HISTORY OF PRESENT ILLNESS: Nedra Bledsoe is a 74-year-old woman who was admitted several times in different hospitals over the last six months. In January,, she had presented with right-sided weakness and was seen by Dr. Ariza from our office whose note on January 13, 2020 stated that patient had weakness of all four extremities, worse on right side with atrophy of intrinsic hand muscles, tongue fasciculations with upper motor neuron signs. He recommended outpatient followup with EMG nerve conduction study to establish diagnosis of ALS. MRI of brain was unremarkable. MRI of cervical, thoracic and lumbar spine showed degenerative disc disease without spinal cord compression. The patient was admitted at [facility] due to an abscess and drainage by interventional radiology. The patient was later admitted at [facility]. She also was scheduled to see neurology at [facility] but she did not keep appointments with our office or [email or web address] Neurology. This time, the patient came to [facility] due to difficulty swallowing. Her arterial blood gas in the emergency department showed PCO2 of 80.4 with PH 7.23. She went intro respiratory failure and was intubated and is currently on mechanical ventilation. I was consulted to make assessment for neuromuscular cause of her swallowing and respiratory failure. PAST MEDICAL HISTORY: 1. Right hemiparesis. 2. Aphasia. 3. Suspicion for ALS. 4. Hypertension. 5. Dyslipidemia. 6. History of GI bleed. 7. Left leg DVT in 2017. 8. Sacral pressure ulcer. 9. Diverticular disease. 10. Abdominal abscess. 11. Colonoscopy. 12. Cataract surgery. 13. IVC filter placement. SOCIAL HISTORY: The patient is a former smoker. No reports of alcohol or illicit drugs. FAMILY HISTORY: Significant for kidney disease. REVIEW OF SYSTEMS: Could not be obtained. PHYSICAL EXAMINATION: VITAL SIGNS: Temperature 97.5, pulse 92, respiratory rate 20, blood pressure 140/62. HEART: Regular rate and rhythm. LUNGS: Clear bilaterally. ABDOMEN: Not distended. EXTREMITIES: No pedal edema. MUSCULOSKELETAL: No clear abnormalities. NEUROLOGICAL: The patient is intubated on ventilator under sedation. She does not respond to verbal, painful or sternal stimuli. She had increased jaw jerk. I am unable to evaluate her tongue and pharyngeal muscle due to her intubation. She was noted to have fasciculations back in January, by Dr. Ariza. Deep tendon reflexes are 3+ throughout. Centers are mute. Sensory, motor, cerebellar, gait testing could not be performed. ASSESSMENT: 1. 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 Ariza in January, with right greater than left-sided weakness. 2. Bulbar symptoms with respiratory failure and dysphagia related to above. PLAN: 1. Her prognosis is guarded-poor. 2. Patient did not follow up with our office or [facility] [[email or web address] Neurology and did not have EMG nerve conduction study performed to confirm diagnosis. Based on her presentation, her examination, lack of significant imaging findings in January,, her examination by Dr. Ariza and her current presentation, it is highly likely that patient has ALS causing symptoms as mentioned above. MTDD
[2020-04-16 15:53] LABS: ABG BASE EXCESS 1.3 (-2.0-2.0); ABG HCO3 24.4 MEQ/L (22.0-26.0); ABG O2 SATURATION 98.1 % (95.0-99.0); ABG PARTIAL PRESSURE CO2 33.7 mmHg (35.0-45.0); ABG PARTIAL PRESSURE O2 93.9 mmHg (75.0-100.0); ABG STANDARD HCO3 25.7 MEQ/L (22.0-26.0); ABG TOTAL CO2 25.5 MEQ/L (23.0-31.0); ABG pH (ARTERIAL) 7.478 UNITS (7.350-7.450)
--- NOTE | 2020-04-16 16:52 | CCN ---
CRITICAL CARE NOTE DATE: 04/16/2020 START TIME: 954 STOP TIME: 1032 I again attended Nedra Bledsoe here in the intensive care unit. Patient has been examined, chart reviewed. I spoke at length with the nurse at the bedside. She is arousable. She has required low-dose sedation. She remains intubated, sedated, mechanically ventilated. Maximum temperature over night 97.7, blood pressure 90s to the low 100s systolic. She has bee off of Levophed. Heart rate in the 70s to 80s with a sinus mechanism, respiratory rate 14-22 without accessory muscle use. Intake and output midnight to midnight 3705 mL in with 655 mL out. She is tolerating her tube feeds. Not recent laboratories shows a white blood count of 7.9, hemoglobin 12.0, platelet count 212,000, 79% segs. No bands. Sodium 143, potassium 4.0, chloride 111, CO2 of 23, BUN 10, creatinine 0.53, glucose 154. Phosphorus mildly low at 1.2. Albumin 1.9. Blood gas done this morning on an SIMV of 14: Tidal volume 420, PEEP of 5, FiO2 at 21%. Has a pH of 7.477, pCO2 of 33.3, and a paO2 of 107.6. Chest x-ray done this morning shows lines and tubes in good position, although her subclavian line does enter into the right internal jugular. No other new findings. On exam, she is sedate but arousable. She is globally weak. Pupils do react. Trachea is in the midline. Lungs are clear to auscultation and percussion. No ____ or focal adventitia are identified. Tactile fremitus palpable throughout. Cardiac exam generally regular. Peripheral pulses palpable. No edema. Soft. There are active bowel sounds. No convincing organomegaly or masses. Extremities without obvious cyanosis or clubbing. Neurologically, she is globally weak. The most pressing problems requiring my presence at the bedside. 1. Respiratory failure, felt to be secondary to primary neurologic/neuromuscular dysfunction, requiring mechanical ventilatory support. 2. Respiratory alkalosis. 3. Electrolyte abnormalities. At this point, we will make ventilator changes in hopes of facilitating weaning at some point. We await formal neurology evaluation. We will replete her phosphorus, as certainly that can contrite to overall weakness I am in agreement with her current antimicrobials empirically. At this point, we will proceed as outlined above. She remains overall critically ill. I left the bedside at 1032 hours. Thirty-seven minutes of critical care time delivered at the bedside, not including procedures
[2020-04-16] MEDS: MIDAZOLAM HCL 100 MG in D5W 80 ML IV SCH (19:24)
[2020-04-17] VITALS (22 sets, daily range): BP systolic 94–117; BP diastolic 51–80
[2020-04-17] MEDS: KCL 20MEQ IN D5/0.45NS 1000ML 1,000 ML IV SCH ×4 (03:02→20:08)
[2020-04-17] MEDS: MIDAZOLAM INJ 2MG/2ML VIAL (J2250 PER 1MG) IV PRN ×2 (04:17→13:35)
[2020-04-17] MEDS: PIPERACILLIN/TAZOBACTAM SOD 3.375 GM in D5W MINI-BAG PLUS 50 ML IV SCH ×4 (04:17→22:57)
[2020-04-17 04:57] LABS: BASO % 0.2 % (0.0-1.0); EOS # 0.1 10^3/uL (0.0-0.5); EOS % 0.9 % (0.0-3.0); HEMATOCRIT 35.1 % (36.0-47.0); LYMPH # 0.7 10^3/uL (1.5-5.0); LYMPH % 7.1 % (24.0-44.0); MEAN CORPUSCULAR HEMOGLOBIN 28.1 pg (27.0-33.0); MEAN CORPUSCULAR HGB CONC 31.3 g/dl (32.0-36.5); MEAN CORPUSCULAR VOLUME 89.5 fl (80.0-96.0); MONO # 0.6 10^3/uL (0.0-0.8); MONO % 5.8 % (0.0-5.0); NEUTROPHILS # 8.4 10^3/uL (1.5-8.5); NEUTROPHILS % 85.6 % (36.0-66.0); PLATELET COUNT, AUTOMATED 215 10^3/uL (150-450); RED BLOOD COUNT 3.92 10^6/uL (4.00-5.40); WHITE BLOOD COUNT 9.9 10^3/uL (4.0-10.0)
[2020-04-17 05:24] LABS: ALBUMIN 1.8 GM/DL (3.2-5.2); ALT/SGPT 11 U/L (12-78); BILIRUBIN,TOTAL 0.3 MG/DL (0.2-1.0); BLOOD UREA NITROGEN 8 MG/DL (7-18); CALCIUM LEVEL 7.6 MG/DL (8.8-10.2); CARBON DIOXIDE LEVEL 26 MEQ/L (21-32); CHLORIDE LEVEL 107 MEQ/L (98-107); CHOLESTEROL LEVEL 65 MG/DL (< 200); CPK CREATINE PHOSPHOKINASE 60 U/L (26-192); GLOMERULAR FILTRATION RATE > 60.0 (>39); GLUCOSE, FASTING 226 MG/DL (70-100); LDH LACTATE DEHYDROGENASE 152 U/L (84-246); PHOSPHORUS LEVEL 1.5 MG/DL (2.5-4.9); POTASSIUM SERUM 4.3 MEQ/L (3.5-5.1); SODIUM LEVEL 141 MEQ/L (136-145); TOTAL PROTEIN 4.9 GM/DL (6.4-8.2); TRIGLYCERIDES LEVEL 77 MG/DL (<150)
[2020-04-17 06:14] LABS: ABG BASE EXCESS 0.7 (-2.0-2.0); ABG HCO3 24.4 MEQ/L (22.0-26.0); ABG O2 SATURATION 99.1 % (95.0-99.0); ABG PARTIAL PRESSURE CO2 36.2 mmHg (35.0-45.0); ABG PARTIAL PRESSURE O2 127.5 mmHg (75.0-100.0); ABG STANDARD HCO3 25.1 MEQ/L (22.0-26.0); ABG TOTAL CO2 25.5 MEQ/L (23.0-31.0); ABG pH (ARTERIAL) 7.447 UNITS (7.350-7.450)
[2020-04-17] MEDS: FLUTICASONE HFA 110 MCG 12 GM INHALER (FLOVENT) INH SCH ×2 (07:42→19:36)
[2020-04-17] MEDS: IPRATROPIUM 0.5MG/ALBUTEROL 2.5MG INH SOL UD 3ML (DUONEB) NEB SCH ×4 (07:43→19:36)
--- NOTE | 2020-04-17 08:55 | REP ---
INDICATION: ett. COMPARISON: 04/16/2020. TECHNIQUE: SINGLE PORTABLE AP VIEW OF THE CHEST WAS PERFORMED. FINDINGS: Mild right base atelectatic change has improved. Left lung is clear. Heart is normal in size. There is calcification of the thoracic aorta. The mediastinal silhouette is unchanged. Endotracheal tube tip is 3.3 cm above the emmie. Nasogastric tube side port is just distal to the gastroesophageal junction. Right central venous catheter again courses cephalad into the jugular vein. IMPRESSION: Mild right base atelectatic change improved. Tubes and lines as above. <Electronically signed by James Cordero > 04/17/20 9689
[2020-04-17] MEDS: CHLORHEXIDINE GLUCONATE 0.12 % 15ML UDC (PERIDEX ORAL RINSE) MT SCH ×2 (10:35→20:08)
[2020-04-17] MEDS: PANTOPRAZOLE 40MG VIAL (C9113 PER 1) IV SCH (10:36)
[2020-04-17] MEDS: ROSUVASTATIN 10 MG TAB (CRESTOR) NG SCH ×2 (10:36→10:59)
[2020-04-17] MEDS: NEUTRA-PHOS 1.5 GM PACKET PO SCH ×3 (10:36→20:09)
[2020-04-17] MEDS: APIXABAN 5 MG TAB (ELIQUIS) NG SCH ×2 (10:37→20:08)
[2020-04-17 11:14] LABS: ABG BASE EXCESS 2.4 (-2.0-2.0); ABG O2 SATURATION 97.3 % (95.0-99.0); ABG PARTIAL PRESSURE CO2 36.5 mmHg (35.0-45.0); ABG PARTIAL PRESSURE O2 84.7 mmHg (75.0-100.0); ABG STANDARD HCO3 26.6 MEQ/L (22.0-26.0); ABG TOTAL CO2 27.1 MEQ/L (23.0-31.0)
--- NOTE | 2020-04-17 18:55 | IPN ---
PROGRESS NOTE DATE: 04/17/2020 SUBJECTIVE: I again attended Nedra Bledsoe here in the intensive care unit. The patient has been examined and chart reviewed. I spoke at length with Dr. Garcia regarding her status as well. We are awaiting formal evaluation and documentation by the neurology service. OBJECTIVE: VITAL SIGNS: T-max overnight 98.2, blood pressure 94 to 112 systolic. She is off of vasopressors. Heart rate 80 to the one-teens with a sinus mechanism. Respiratory rate 16 to 22 and unlabored. INTAKE AND OUTPUT: [id number]-yc-[id number] 4186 mL in with 2275 mL out. GENERAL APPEARANCE: She is sedate, but arousable. HEENT: Pupils do react. Sclerae clear. NECK: Trachea is in the midline. LUNGS: Show symmetric expansion. Tactile fremitus palpable. No focal wheeze, rhonchus, crackles, or rubs. CARDIAC: Regular. Peripheral pulses palpable. Minimal edema. ABDOMEN: Soft. There are active bowel sounds. No obvious organomegaly or masses. EXTREMITIES: Remain weak maybe a little bit weaker on the right than the left, but difficult due to her Versed drip. IMAGING DATA: Chest x-ray shows no new findings. LABORATORY DATA: Most recent laboratories show a white blood cell count of 9.9, hemoglobin 11.0, platelet count 215,000, 85% segs, and no bands. Sodium 141, K of 4.3, chloride 107, CO2 of 26, BUN 8, creatinine 0.4, glucose 226. Calcium 7.6 and phosphorus 1.5; mildly improved from yesterday and she is on replacement. Blood gas done this morning on an SIMV of 6, tidal volume 420, PEEP of 5, pressure support of 12, and FiO2 of 21% has a pH of 7.447, pCO2 of 36.2, and a pO2 of 127.5. MEDICATION REVIEW: List has been reviewed. She remains on empiric Zosyn this is day 4. She is on electrolyte replacement, as well as Eliquis. IMPRESSION: 1. Hypoxemia and hypercarbic respiratory failure acute on chronic. 2. Mechanical ventilatory support in view of the above. 3. Primary neurologic-neuromotor dysfunction. 4. Chronic anticoagulation. The note from neurology has just now come to the chart. They favor that this is suspected amyotrophic lateral sclerosis (ALS). Exam previously would fit with right greater than left-sided weakness. In view of this, we will attempt to wean her as we are able. Certainly in view of this, her prognosis is guarded to poor. If she is not able to wean and protect her airway, then a discussion will need to be had with her and the family regarding her wishes; as likely if she has significant retrobulbar difficulties, then she will need at the minimum a tracheostomy and plus/minus, most likely, ventilatory support down the road. At this point; however, the biggest issue will be her ability to control her upper airway. We will wean her, but not extubate her quite yet. We await the outcome of the above discussion. Further recommendations will be made in the progress record as soon as new information becomes available.
--- NOTE | 2020-04-17 21:54 | IPN ---
PROGRESS NOTE DATE: 04/17/2020 I attempted to call Nedra Bledsoe's daughter, Tammie. There was no answer and the voice mailbox was full. I attempted to call her daughter, Hansa, phone was picked up and immediately hung up on on two occasions.
[2020-04-18] VITALS (24 sets, daily range): BP systolic 79–134; BP diastolic 49–79
[2020-04-18] MEDS: KCL 20MEQ IN D5/0.45NS 1000ML 1,000 ML IV SCH ×4 (04:19→23:34)
[2020-04-18] MEDS: PIPERACILLIN/TAZOBACTAM SOD 3.375 GM in D5W MINI-BAG PLUS 50 ML IV SCH ×4 (04:19→23:34)
[2020-04-18 04:59] LABS: HEMATOCRIT 32.7 % (36.0-47.0); HEMOGLOBIN 10.4 g/dl (12.0-15.5); MEAN CORPUSCULAR HEMOGLOBIN 28.7 pg (27.0-33.0); MEAN CORPUSCULAR HGB CONC 31.8 g/dl (32.0-36.5); MEAN CORPUSCULAR VOLUME 90.1 fl (80.0-96.0); PLATELET COUNT, AUTOMATED 236 10^3/uL (150-450); RED BLOOD COUNT 3.63 10^6/uL (4.00-5.40); WHITE BLOOD COUNT 10.1 10^3/uL (4.0-10.0)
[2020-04-18 05:45] LABS: ALBUMIN 1.7 GM/DL (3.2-5.2); ALT/SGPT 9 U/L (12-78); BILIRUBIN,TOTAL 0.3 MG/DL (0.2-1.0); BLOOD UREA NITROGEN 7 MG/DL (7-18); CALCIUM LEVEL 7.7 MG/DL (8.8-10.2); CARBON DIOXIDE LEVEL 28 MEQ/L (21-32); CHLORIDE LEVEL 108 MEQ/L (98-107); CHOLESTEROL LEVEL 62 MG/DL (< 200); CPK CREATINE PHOSPHOKINASE 151 U/L (26-192); CREATININE FOR GFR 0.32 MG/DL (0.55-1.30); GLOMERULAR FILTRATION RATE > 60.0 (>39); GLUCOSE, FASTING 156 MG/DL (70-100); LDH LACTATE DEHYDROGENASE 130 U/L (84-246); PHOSPHORUS LEVEL 2.8 MG/DL (2.5-4.9); SODIUM LEVEL 141 MEQ/L (136-145); TOTAL PROTEIN 5.3 GM/DL (6.4-8.2); TRIGLYCERIDES LEVEL 61 MG/DL (<150)
[2020-04-18 06:21] LABS: ABG BASE EXCESS 1.4 (-2.0-2.0); ABG HCO3 25.4 MEQ/L (22.0-26.0); ABG O2 SATURATION 98.4 % (95.0-99.0); ABG PARTIAL PRESSURE CO2 37.8 mmHg (35.0-45.0); ABG PARTIAL PRESSURE O2 122.8 mmHg (75.0-100.0); ABG STANDARD HCO3 25.7 MEQ/L (22.0-26.0); ABG TOTAL CO2 26.5 MEQ/L (23.0-31.0); ABG pH (ARTERIAL) 7.445 UNITS (7.350-7.450)
--- NOTE | 2020-04-18 07:16 | IPN ---
PROGRESS NOTE DATE: 04/17/2020 SUBJECTIVE: I eventually reached Mrs. Bledsoe's daughter, Tammie, ([phone]) and discussed her current clinical situation. She is aware that she is intubated, probably has ALS, might require a feeding tube. At that point she then said that her brother, Gustavo Paul, would have to make that decision. He is at [phone]. Apparently, there is no specified health care proxy. I tried to call Gustavo at that number. There is no number and the voice mailbox is full.
--- NOTE | 2020-04-18 07:30 | IPN ---
PROGRESS NOTE DATE: 04/17/2020 SUBJECTIVE: Nedra is seen in the ICU still intubated. She was seen by neurology yesterday. Appreciate Dr. Liu's note. He and I spoke today as well. She is off pressors. Still no sign of any neurologic improvement. PHYSICAL EXAMINATION: 109/55, intubated, ventilated, does not follow commands. She is sedated. Right hemiparesis. Lungs clear. Heart: Regular rate and rhythm. Abdomen: Soft, nontender. No peripheral edema. LABORATORY DATA: Complete blood count (CBC): Hemoglobin is 11, white count 9.9, sodium 141, potassium 4.3, BUN 8, creatinine 0.8. Glucose 226, IMPRESSION: 1. Respiratory failure, probably from underlying neurological neuromuscular disease. Ventilator per Dr. Ulrich. We discussed the case today. He was waiting for the neurology assessment to decide about further weaning. 2. 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 Dr. Liu's note is appreciated. The patient has not really had a full workup for this. She was not able to see neurology at the [facility] or local neurology office. Has not had EMG done to confirm the diagnosis. ALS is highly likely. Dr. Bowles's plan is to have lab tests to rule out myasthenia gravis. 3. Suspected aspiration. This is day #4 of IV Zosyn. 4. Swallowing difficulties. Currently is fed through a nasogastric tube. Will do the PEG tube if aggressive measures are desired by her healthcare proxy. 5. Sacral decubitus ulcer. Wound team has been consulted. 6. History of deep venous thrombosis (DVT). She is on Eliquis 5 mg twice daily.
[2020-04-18] MEDS: FLUTICASONE HFA 110 MCG 12 GM INHALER (FLOVENT) INH SCH ×2 (07:32→20:49)
[2020-04-18] MEDS: IPRATROPIUM 0.5MG/ALBUTEROL 2.5MG INH SOL UD 3ML (DUONEB) NEB SCH ×4 (07:32→20:50)
[2020-04-18] MEDS: MIDAZOLAM INJ 2MG/2ML VIAL (J2250 PER 1MG) IV PRN ×3 (07:48→23:37)
--- NOTE | 2020-04-18 08:12 | REP ---
INDICATION: ett. COMPARISON: Comparison chest x-ray 17 April 2020. TECHNIQUE: Portable upright AP chest radiograph. FINDINGS: Endotracheal tube is seen in good position at the level of transverse aorta. NG tube enters the left upper quadrant. Right subclavian catheter ascends in the neck off the field of view consistent with jugular vein position. This is unchanged. Cardiomediastinal silhouette is unchanged. Pleural angles are sharp. No new infiltrate.. IMPRESSION: No new infiltrate. Endotracheal and nasogastric tubes in place. Right subclavian catheter in jugular vein position. Tip above the top of the field of view.. <Electronically signed by Patrick Lao > 04/18/20 0820
[2020-04-18] MEDS: PANTOPRAZOLE 40MG VIAL (C9113 PER 1) IV SCH (08:44)
[2020-04-18] MEDS: APIXABAN 5 MG TAB (ELIQUIS) NG SCH ×2 (08:44→21:09)
[2020-04-18] MEDS: NEUTRA-PHOS 1.5 GM PACKET PO SCH ×3 (08:44→21:09)
[2020-04-18] MEDS: CHLORHEXIDINE GLUCONATE 0.12 % 15ML UDC (PERIDEX ORAL RINSE) MT SCH ×2 (08:44→21:09)
[2020-04-18] MEDS: ROSUVASTATIN 10 MG TAB (CRESTOR) NG SCH (08:45)
--- NOTE | 2020-04-18 10:21 | IPN ---
PROGRESS NOTE DATE: 04/18/2020 SUBJECTIVE: Nedra is seen in the ICU, still intubated, fully alert, following commands. She has been seen by Neurology, the prevailing opinion is she probably has ALS or other upper motor neuron disease but that is not something we are going to be able to diagnose while in the hospital. She had an uneventful overnight. She is still intubated. She is being weaned. Pressure a little soft this morning. She is being tube fed. PHYSICAL EXAMINATION: VITAL SIGNS: Blood pressure 94/71, 97% O2 saturation, afebrile. GENERAL APPEARANCE: She is alert, she follows commands. Trying to mouth words over her endotracheal tube. Nasogastric tube in place. LUNGS: Clear. HEART: Regular rate and rhythm. ABDOMEN: Soft, nontender and nondistended. EXTREMITIES: No peripheral edema. Right hemiparesis. Moves left hand and foot to command. LABORATORY DATA: White count 10.1, hemoglobin 10.4, platelets 236,000. Sodium 141, potassium 4, BUN 7, creatinine 0.3. Glucose 150. Albumin is 1.7. IMPRESSION: 1. Respiratory failure probably from underlying neuromuscular disease, suspect ALS. Patient's ventilator is being managed by Pulmonary, appreciate Dr. Ulrich's assistance. 2. Suspected ALS or upper motor neuron disease. I discussed the case with Dr. Ariza today. This diagnosis cannot be made without an EMG we cannot do as an inpatient here. Consideration could be given to transfer to a center like [facility] where inpatient EMG would be available. Dr. Liu ordered tests to rule out myasthenia. I would not consider this transfer until she is extubated and more stable. 3. Aspiration pneumonia, day #5 of IV Zosyn. 4. Feeding difficulties. She will need a PEG-tube if the family agrees. I have had trouble determining who the primary decision maker is. Will work more on this again today. 5. Sacral decubitus ulcer, Wound Team is involved. 6. History of DVT. Continue Eliquis 5 mg b.i.d. Patient has two family members. I have been communicating with Tammie at [phone] but she defers to her brother, Gustavo Paul for decisions such as feeding tube, etc. He is at [phone] and unfortunately multiple phone calls to that number led to a voice mailbox which was full. Will try again today.
--- NOTE | 2020-04-18 11:15 | CCN ---
CRITICAL CARE NOTE DATE: 04/18/2020 SUBJECTIVE: I again attended Nedra Bledsoe. The patient has been examined and chart reviewed. I spoke at length with the nurse at the bedside as well as with Dr. Garcia concerning her plan of care. She remains on pressure support only. She is awake although globally weak, she is comfortable. She denies shortness of breath. Most recent blood gas done on a pressure support of 12, PEEP of 5 and FIO2 of 21%. Has a pH of 7.445, pCO2 of 37.8 and pO2 of 122. T-max overnight 99.6, blood pressure 94 to 130s, heart rate generally in the 80s to low 100s with a sinus mechanism. INS AND OUTS: Midnight to midnight 3368 ml in with 1925 ml out. LABORATORY DATA: Other laboratories shows a sodium of 141, K 4.0, chloride 108, CO2 28, BUN 7, creatinine 0.32. Phosphorus improved to 2.8. White blood cell count 10.1, hemoglobin 10.4, platelet count 236,000. PHYSICAL EXAMINATION: GENERAL APPEARANCE: She is awake, alert, appropriate and follows commands. HEENT: Pupils react. Sclera are clear. NECK: Trachea is in the midline. LUNGS: Clear to both auscultation and percussion. No focal adventitious breath sounds are identified. Tactile fremitus is palpable throughout CARDIAC: Regular rhythm. No gallop. Peripheral pulses are palpable. No obvious edema. ABDOMEN: Soft, there are active bowel sounds. EXTREMITIES: No cyanosis or clubbing. NEUROLOGIC: She is weak but awake and alert. Chest x-ray again shows the subclavian tip to end in her right IJ. Endotracheal tube is in good position. IMPRESSION: 1. Respiratory failure secondary to probable ALS. RECOMMENDATIONS: I had a long discussion with Dr. Garcia who tells me he had a very lengthy discussion with the patient's son who is her health care proxy. They are in favor of when she is extubated for her not to be re-intubated. Certainly, she breathes comfortably at the moment but if she has significant retrobulbar issues then she will not be able to protect her airway. This presents a problem for nutrition. I am told the son desires her to have a PEG-tube placed prior to her extubation and therefore will not extubate her until that is completed. In the interim, we will continue her current regimen. I will make no changes in her ventilator settings. We await her procedure as outlined above. Further recommendations will be made in the progress record as new information becomes available.
--- NOTE | 2020-04-18 11:15 | IPN ---
PROGRESS NOTE DATE: 04/18/2020 SUBJECTIVE: I had a good long conversation with Gustavo Paul ([phone]), Nedra Cordova's son and alternative decision maker (there is no formal health care proxy in place but I do feel that he is functioning adequately as the alternate decision maker). We discussed the case at length. He knows that we suspect she has ALS, not something we can diagnose in the hospital as she is currently intubated but we expect she will wean off the ventilator. He agrees with the PEG tube and I will consult Dr. Lopez for this. We discussed advanced directives. He indicates that when she comes off the ventilator he would probably want her to be DO NOT RESUSCITATE/DO NOT INTUBATE but does want her to have IV fluids and tube feedings. He was not ready to make a formal decision on this today but I would encourage further conversation with Mr. Paul tomorrow to determine his decision. The patient is currently intubated so we did not press the matter today.
[2020-04-18] MEDS: ACETAMINOPHEN TAB 650MG DOSE (2X325MG) PO PRN (14:37)
[2020-04-19] VITALS (23 sets, daily range): BP systolic 107–147; BP diastolic 47–96
[2020-04-19] MEDS: PIPERACILLIN/TAZOBACTAM SOD 3.375 GM in D5W MINI-BAG PLUS 50 ML IV SCH ×4 (05:01→23:14)
[2020-04-19 05:55] LABS: ABG BASE EXCESS 2.1 (-2.0-2.0); ABG O2 SATURATION 96.1 % (95.0-99.0); ABG PARTIAL PRESSURE CO2 43.3 mmHg (35.0-45.0); ABG PARTIAL PRESSURE O2 76.7 mmHg (75.0-100.0); ABG STANDARD HCO3 26.3 MEQ/L (22.0-26.0); ABG TOTAL CO2 28.3 MEQ/L (23.0-31.0); ABG pH (ARTERIAL) 7.412 UNITS (7.350-7.450)
[2020-04-19] MEDS: IPRATROPIUM 0.5MG/ALBUTEROL 2.5MG INH SOL UD 3ML (DUONEB) NEB SCH ×4 (07:37→20:16)
[2020-04-19] MEDS: FLUTICASONE HFA 110 MCG 12 GM INHALER (FLOVENT) INH SCH ×2 (07:37→20:16)
[2020-04-19] MEDS: KCL 20MEQ IN D5/0.45NS 1000ML 1,000 ML IV SCH ×3 (07:45→23:14)
--- NOTE | 2020-04-19 07:56 | REP ---
INDICATION: ett COMPARISON: 04/18/2020 TECHNIQUE: Portable AP view of the chest FINDINGS: Endotracheal tube 2.9 cm above the emmie. Nasogastric tube courses below left hemidiaphragm. A right subclavian catheter again extends cranially into the right internal jugular vein. Left perihilar and bibasilar opacities including possible small right layering effusion cannot be excluded and may be slightly increased when compared to prior exam.. IMPRESSION: 1. Lines and tubes as noted above. 2. Left perihilar and bibasilar opacities with possible small layering effusion suspected. <Electronically signed by Prosper Strange > 04/19/20 [id number]
[2020-04-19 08:46] LABS: HEMATOCRIT 35.1 % (36.0-47.0); MEAN CORPUSCULAR HEMOGLOBIN 28.5 pg (27.0-33.0); MEAN CORPUSCULAR HGB CONC 31.3 g/dl (32.0-36.5); MEAN CORPUSCULAR VOLUME 90.9 fl (80.0-96.0); PLATELET COUNT, AUTOMATED 301 10^3/uL (150-450); RED BLOOD COUNT 3.86 10^6/uL (4.00-5.40); WHITE BLOOD COUNT 11.1 10^3/uL (4.0-10.0)
[2020-04-19 09:16] LABS: ALBUMIN 1.8 GM/DL (3.2-5.2); ALT/SGPT 11 U/L (12-78); BILIRUBIN,TOTAL 0.2 MG/DL (0.2-1.0); BLOOD UREA NITROGEN 8 MG/DL (7-18); CARBON DIOXIDE LEVEL 29 MEQ/L (21-32); CHLORIDE LEVEL 108 MEQ/L (98-107); CREATININE FOR GFR 0.33 MG/DL (0.55-1.30); GLOMERULAR FILTRATION RATE > 60.0 (>39); GLUCOSE, FASTING 165 MG/DL (70-100); SODIUM LEVEL 142 MEQ/L (136-145); TOTAL PROTEIN 6.2 GM/DL (6.4-8.2)
[2020-04-19] MEDS: PANTOPRAZOLE 40MG VIAL (C9113 PER 1) IV SCH (09:56)
[2020-04-19] MEDS: ROSUVASTATIN 10 MG TAB (CRESTOR) NG SCH (09:56)
[2020-04-19] MEDS: CHLORHEXIDINE GLUCONATE 0.12 % 15ML UDC (PERIDEX ORAL RINSE) MT SCH ×2 (09:56→21:01)
[2020-04-19] MEDS: APIXABAN 5 MG TAB (ELIQUIS) NG SCH ×2 (09:56→21:00)
[2020-04-19] MEDS: NEUTRA-PHOS 1.5 GM PACKET PO SCH ×3 (09:57→21:00)
--- NOTE | 2020-04-19 11:45 | IPNPDOC ---
Text Note Date of Service The patient was seen on 04/19/20. NOTE Subjective: Patient was seen and examined this morning at bedside in the ICU. Patient intubated. I discussed with the patient the need for a PEG tube as she is unable to swallow patient agreed. Initially refused this morning with Dr. Lopez but changed her mind. Patient able to communicate by writing on paper. Denies being in any distress. Wants to be extubated after the PEG tube. Not interested in being intubated again discussed again with her CODE STATUS and she wishes to be DNR/DNI. Objective: Constitutional: Awake and alert, in no apparent distress following commands ENT: Sclera are clear Respiratory: Intubated breathing over the vent- Cardiovascular: RRR S1 and S2 are normal, no murmur Gastrointestinal: Abdomen is soft, non distended, non tender Musculoskeletal: No peripheral edema Mental Status: A&O x3, normal affect Skin: Warm, dry Assessment/plan: 74-year-old female admitted with dysphagia and respiratory failure suspected to be due to underlying neurologic neuromuscular disease such as ALS but without a formal diagnosis. #Respiratory failure: Presumed to be secondary to underlying undiagnosed neurologic neuromuscular disorder such as ALS. Patient wishes to be DNR/DNI. Patient expected to be extubated after PEG tube placement tomorrow. # Dysphagia: Currently patient is feeding through an OG tube. Patient agreed to PEG tube which will be placed tomorrow by Dr. Lopez. # Possible aspiration pneumonia: Patient is on Zosyn IV. This was likely due to her underlying dysphagia. # Primary neurologic neuromotor dysfunction: Possibly ALS. Patient will need to have a workup completed with neurology including EMG which can be done as an outpatient per Dr. Liu, patient failed to come to prior appointments. # History of DVT: Continue eliquis twice a day # Sacral decubitus ulcer: Wound care team was consulted. Recommend follow-up with PCP. # DVT prophylaxis: Eliquis Oldest son Gustavo Paul: [id number], [id number] CODE STATUS: DNR/DNI after extubation. A [facility] Hospitalist VS,Horacee, I+O VS, Yonisbone, I+O Vital Signs Date Time Temp Pulse Resp B/P (MAP) Pulse Ox O2 Delivery O2 Flow Rate FiO2 04/19/20 06:00 94 24 118/55 (76) 92 Ventilator 21 04/19/20 04:00 99.0 04/14/20 08:00 2.0 I&O- Last 24 Hours up to 6 AM 04/19/20 06:00 Intake Total 3050 ml Output Total 2790 ml Balance 260 ml FRANCESCO RASHID MD Apr 19, 2020 07:25
--- NOTE | 2020-04-19 13:05 | IPN ---
PROGRESS NOTE DATE: 04/19/2020 SUBJECTIVE: I again attended Nedra Bledsoe here in the Intensive Care Unit. Patient admitted, examined, chart reviewed. I spoke at length with the nurse at the bedside. I am told initially there was some concern that the patient would not want a PEG tube and was initially reluctant to do so. I am told now after a lengthy discussion again with the primary service that she is now agreeable. I am told that Dr. Lopez is attempting to have that done today if possible. PHYSICAL EXAMINATION: GENERAL: She is awake, alert and appropriate. VITAL SIGNS: T-max overnight 99 degrees, blood pressure 107 to 130's, heart rate in the 80's to 90's, respiratory rate 18 to 20 without accessory muscle use. HEENT: Normocephalic, atraumatic. Pupils do react. Neck is supple. Trachea is midline. CHEST: Clear to both auscultation and percussion. No focal adventitious breath sounds identified. Tactile fremitus is palpable throughout CARDIAC: Regular with no gallop. Peripheral pulses palpable. No obvious edema. ABDOMEN: Soft, active bowel sounds. No convincing organomegaly or masses. EXTREMITIES: Without cyanosis or clubbing. NEUROLOGIC: She is globally weak, but moves all extremities. Strength a little better than yesterday. IMAGING STUDIES: Chest x-ray shows lines and tubes in good position except the subclavian line still ends in the IJ. IMPRESSION: Respiratory failure on the basis of neuromuscular disease. RECOMMENDATIONS: At this point, she is on pressure support only. Blood gas this morning shows a pH of 7.412, pCO2 of 43.3 and pO2 of 76.7, pressure point of 10, PEEP of 5, FIO2 of 21%. All her other laboratories have also been reviewed. At this point, we await placement of her PEG. Once that has been placed, then she can likely be extubated. I am told that she still wishes as does the family for her to be no re-intubation, but certainly that is up to the patient. We will proceed as outlined above. Further recommendations will be made in the progress record as new information becomes available.
[2020-04-19] MEDS: ACETAMINOPHEN TAB 650MG DOSE (2X325MG) PO PRN (15:13)
[2020-04-19] MEDS: MIDAZOLAM INJ 2MG/2ML VIAL (J2250 PER 1MG) IV PRN (21:01)
[2020-04-20] VITALS (23 sets, daily range): BP systolic 116–161; BP diastolic 55–102; O2SAT 93
[2020-04-20] MEDS: MIDAZOLAM INJ 2MG/2ML VIAL (J2250 PER 1MG) IV PRN (03:21)
[2020-04-20 05:43] LABS: ABG BASE EXCESS 1.7 (-2.0-2.0); ABG HCO3 25.5 MEQ/L (22.0-26.0); ABG O2 SATURATION 95.5 % (95.0-99.0); ABG PARTIAL PRESSURE CO2 37.3 mmHg (35.0-45.0); ABG STANDARD HCO3 25.9 MEQ/L (22.0-26.0); ABG TOTAL CO2 26.7 MEQ/L (23.0-31.0); ABG pH (ARTERIAL) 7.453 UNITS (7.350-7.450)
[2020-04-20] MEDS: PIPERACILLIN/TAZOBACTAM SOD 3.375 GM in D5W MINI-BAG PLUS 50 ML IV SCH ×4 (05:53→23:36)
[2020-04-20 06:04] LABS: BASO % 0.4 % (0.0-1.0); EOS # 0.5 10^3/uL (0.0-0.5); EOS % 5.3 % (0.0-3.0); HEMATOCRIT 33.2 % (36.0-47.0); HEMOGLOBIN 10.5 g/dl (12.0-15.5); LYMPH # 1.1 10^3/uL (1.5-5.0); LYMPH % 12.8 % (24.0-44.0); MEAN CORPUSCULAR HEMOGLOBIN 28.3 pg (27.0-33.0); MEAN CORPUSCULAR HGB CONC 31.6 g/dl (32.0-36.5); MEAN CORPUSCULAR VOLUME 89.5 fl (80.0-96.0); MONO # 0.6 10^3/uL (0.0-0.8); MONO % 6.7 % (0.0-5.0); NEUTROPHILS # 6.3 10^3/uL (1.5-8.5); NEUTROPHILS % 74.3 % (36.0-66.0); PLATELET COUNT, AUTOMATED 265 10^3/uL (150-450); RED BLOOD COUNT 3.71 10^6/uL (4.00-5.40); WHITE BLOOD COUNT 8.5 10^3/uL (4.0-10.0)
[2020-04-20 06:27] LABS: ALBUMIN 1.8 GM/DL (3.2-5.2); ALT/SGPT 12 U/L (12-78); BILIRUBIN,TOTAL 0.2 MG/DL (0.2-1.0); BLOOD UREA NITROGEN 7 MG/DL (7-18); CALCIUM LEVEL 7.9 MG/DL (8.8-10.2); CARBON DIOXIDE LEVEL 31 MEQ/L (21-32); CHLORIDE LEVEL 108 MEQ/L (98-107); CREATININE FOR GFR 0.32 MG/DL (0.55-1.30); GLOMERULAR FILTRATION RATE > 60.0 (>39); GLUCOSE, FASTING 97 MG/DL (70-100); MAGNESIUM LEVEL 1.5 MG/DL (1.8-2.4); POTASSIUM SERUM 4.4 MEQ/L (3.5-5.1); SODIUM LEVEL 142 MEQ/L (136-145); TOTAL PROTEIN 5.4 GM/DL (6.4-8.2)
[2020-04-20] MEDS: FLUTICASONE HFA 110 MCG 12 GM INHALER (FLOVENT) INH SCH ×2 (07:32→20:03)
--- NOTE | 2020-04-20 07:32 | IPNPDOC ---
Text Note Date of Service The patient was seen on 04/20/20. NOTE Subjective: Patient was seen and examined this morning at bedside in the ICU. Patient intubated. Plan for PEG tube later today. No acute overnight events. Patient denies any chest pain, or abdominal pain. Understands plan for extubation after the PEG tube and reinforces that she does not want to be reintubated should she require it in the future. Objective: Constitutional: Awake and alert, in no apparent distress following commands ENT: Sclera are clear Respiratory: Intubated breathing over the vent- Cardiovascular: RRR S1 and S2 are normal, no murmur Gastrointestinal: Abdomen is soft, non distended, non tender Musculoskeletal: No peripheral edema Mental Status: A&O x3, normal affect Skin: Warm, dry Assessment/plan: 74-year-old female admitted with dysphagia and respiratory failure suspected to be due to underlying neurologic neuromuscular disease such as ALS but without a formal diagnosis. #Respiratory failure: Presumed to be secondary to underlying undiagnosed neurologic neuromuscular disorder such as ALS. Patient wishes to be DNR/DNI. Patient expected to be extubated after PEG tube placement today # Dysphagia: Currently patient is feeding through an OG tube. Patient agreed to PEG tube which will be placed today by Dr. Lopez. # Possible aspiration pneumonia: Patient is on Zosyn IV. This was likely due to her underlying dysphagia. # Primary neurologic neuromotor dysfunction: Possibly ALS. Patient will need to have a workup completed with neurology including EMG which can be done as an outpatient per Dr. Liu, patient failed to come to prior appointments. # History of DVT: Continue eliquis twice a day # Sacral decubitus ulcer: Wound care team was consulted. Recommend follow-up with PCP. # DVT prophylaxis: Eliquis Oldest son Gustavo Paul: [id number], [id number] CODE STATUS: DNR/DNI after extubation. A [facility] Hospitalist Bianca VERMA, I+O Bianca VERMA I+O Laboratory Tests 04/19/20 08:31 04/20/20 05:46 Vital Signs Date Time Temp Pulse Resp B/P (MAP) Pulse Ox O2 Delivery O2 Flow Rate FiO2 04/20/20 00:31 92 23 96 21 04/19/20 20:00 98.7 143/76 (98) Ventilator 04/14/20 08:00 2.0 I&O- Last 24 Hours up to 6 AM 04/20/20 06:00 Intake Total 1980 ml Output Total 2175 ml Balance -195 ml FRANCESCO RASHID MD Apr 20, 2020 07:32
[2020-04-20] MEDS: IPRATROPIUM 0.5MG/ALBUTEROL 2.5MG INH SOL UD 3ML (DUONEB) NEB SCH ×4 (07:35→20:03)
--- NOTE | 2020-04-20 07:58 | REP ---
INDICATION: ett COMPARISON: 04/19/2020 TECHNIQUE: Portable AP view of the chest FINDINGS: Lines and tubes in stable position. Bibasilar opacities, left lower lobe consolidation, and small effusions again noted and similar to prior examination. No obvious new acute process. No pneumothorax. IMPRESSION: Primarily bibasilar opacities with areas of consolidation and small effusions essentially unchanged. <Electronically signed by Prosper Strange > 04/20/20 [id number]
[2020-04-20] MEDS: KCL 20MEQ IN D5/0.45NS 1000ML 1,000 ML IV SCH ×3 (08:07→15:00)
[2020-04-20] MEDS: PANTOPRAZOLE 40MG VIAL (C9113 PER 1) IV SCH (09:57)
[2020-04-20] MEDS: CHLORHEXIDINE GLUCONATE 0.12 % 15ML UDC (PERIDEX ORAL RINSE) MT SCH ×2 (09:57→21:57)
--- NOTE | 2020-04-20 10:33 | CCN ---
CRITICAL CARE NOTE DATE: 04/20/2020 SUBJECTIVE: I again saw Nedra Bledsoe here in the Intensive Care Unit. Patient has been examined and chart reviewed. She remains on pressure support only. I am told she is getting her PEG today. She is awake, alert, appropriate and anxious to be extubated. T-max overnight 98.9, blood pressure 160 to 150s. She has not required vasopressor. Heart rate is in the 80s to 90s, respiratory rate in the 20s. LABORATORY DATA: Most recent laboratories shows a white blood cell count of 8.5, hemoglobin 10.5, platelet count 265,000. Sodium 142, K 4.4, chloride 108, CO2 31, BUN 7, creatinine 0.32. Blood gas done this morning on pressure support of 12, PEEP of 5, FIO2 at 21%, pH 7.453, pCO2 37.3, pO2 75. PHYSICAL EXAMINATION: GENERAL: On exam, she is awake, alert and appropriate, follows commands. HEENT: Pupils reactive. Sclera clear. NECK: Trachea is in the midline. CHEST: Clear to both auscultation and percussion. No focal adventitious breath sounds identified. CARDIAC: Regular with no gallop. Peripheral pulses palpable. No obvious edema. ABDOMEN: Soft, nontender with active bowel sounds. No convincing organomegaly or masses. EXTREMITIES: Without cyanosis or clubbing. NEUROLOGIC: She actually moves all extremities reasonably well today. IMPRESSION: 1. Respiratory failure secondary to what is felt to be ALS. RECOMMENDATIONS: At this point she is scheduled for a PEG. Her issues mainly with her ALS are significantly with retrobulbar issues and therefore I believe that is reasonable. I am told her son does not wish her re-intubated. Certainly, this will be a discussion between the patient and her son when she is extubated. At this point will proceed as outlined above. Await her procedure and she can likely be immediately extubated. Further recommendations will be made in the progress record as new information becomes available.
--- NOTE | 2020-04-20 12:08 | IPNPDOC ---
Text Note Date of Service The patient was seen on 04/20/20. NOTE General Surgery Dr Lopez. The patient is a 74-year-old female admitted to the ICU with respiratory failure secondary to what is felt to be ALS, currently intubated. General Surgery is consulted for PEG tube placement. Afebrile. Heart rate 87, respiratory rate 22, blood pressure 140/65, saturation 92% Awake, alert. Good A/E. S1-S2 regular rate and rhythm Abdomen soft, nontender. Extremities. No edema WBC 8.5, hemoglobin 10.5, platelets 265 Serum creatinine 0.32, GFR greater than 60 Total protein 5.4, albumin 1.8 A/P. The patient is reviewed by Dr. Lopez, plan is to proceed with EGD and PEG tube today. The pt is NPO. The patient does not have HCP on file. D/W nursing, contact for pt is GENOVEVA Tammie Ribeiro,the patient's daughter. [phone]. I spoke with the patient's daughter this morning. She states she has been consenting for the pt. I reviewed the plan to proceed with EGD and PEG tube placement today as per Dr. Lopez. The procedure, risks, benefits and alternatives are reviewed. All questions are answered. Verbal Informed consent is obtained from the patient's daughter Tammie and placed with the chart. VS,Yonisbone, I+O VS, Fishbone, I+O Laboratory Tests 04/20/20 05:46 Vital Signs Date Time Temp Pulse Resp B/P (MAP) Pulse Ox O2 Delivery O2 Flow Rate FiO2 04/20/20 07:36 87 22 92 21 04/20/20 07:00 140/65 (90) Ventilator 04/20/20 04:00 98.5 04/14/20 08:00 2.0 I&O- Last 24 Hours up to 6 AM 04/20/20 06:00 Intake Total 2340 ml Output Total 3750 ml Balance -1410 ml Bindu Espinoza Apr 20, 2020 12:08
[2020-04-20] MEDS: ROSUVASTATIN 10 MG TAB (CRESTOR) NG SCH (14:46)
[2020-04-20] MEDS: APIXABAN 5 MG TAB (ELIQUIS) NG SCH ×2 (14:46→21:57)
[2020-04-20] MEDS: NEUTRA-PHOS 1.5 GM PACKET PO SCH ×3 (14:46→21:57)
[2020-04-20] MEDS: MAG SULF 1GM/100ML (MAG RUN) 1 GM in IV 1 EA IV SCH ×2 (17:21→18:29)
[2020-04-21] VITALS (50 sets, daily range): BP systolic 54–150; BP diastolic 28–77
[2020-04-21] MEDS: KCL 20MEQ IN D5/0.45NS 1000ML 1,000 ML IV SCH ×4 (00:26→19:06)
[2020-04-21] MEDS: MIDAZOLAM INJ 2MG/2ML VIAL (J2250 PER 1MG) IV PRN ×4 (01:09→22:12)
[2020-04-21] MEDS: PIPERACILLIN/TAZOBACTAM SOD 3.375 GM in D5W MINI-BAG PLUS 50 ML IV SCH ×4 (05:08→23:37)
[2020-04-21 05:20] LABS: BASO % 0.4 % (0.0-1.0); EOS # 0.3 10^3/uL (0.0-0.5); HEMATOCRIT 33.4 % (36.0-47.0); HEMOGLOBIN 10.8 g/dl (12.0-15.5); LYMPH % 9.7 % (24.0-44.0); MEAN CORPUSCULAR HEMOGLOBIN 28.8 pg (27.0-33.0); MEAN CORPUSCULAR HGB CONC 32.3 g/dl (32.0-36.5); MEAN CORPUSCULAR VOLUME 89.1 fl (80.0-96.0); MONO # 0.6 10^3/uL (0.0-0.8); NEUTROPHILS # 8.3 10^3/uL (1.5-8.5); NEUTROPHILS % 80.6 % (36.0-66.0); PLATELET COUNT, AUTOMATED 257 10^3/uL (150-450); RED BLOOD COUNT 3.75 10^6/uL (4.00-5.40); WHITE BLOOD COUNT 10.3 10^3/uL (4.0-10.0)
[2020-04-21 05:40] LABS: ALBUMIN 1.8 GM/DL (3.2-5.2); ALT/SGPT 14 U/L (12-78); BILIRUBIN,TOTAL 0.2 MG/DL (0.2-1.0); BLOOD UREA NITROGEN 5 MG/DL (7-18); CALCIUM LEVEL 7.8 MG/DL (8.8-10.2); CARBON DIOXIDE LEVEL 30 MEQ/L (21-32); CHLORIDE LEVEL 105 MEQ/L (98-107); CREATININE FOR GFR 0.28 MG/DL (0.55-1.30); GLOMERULAR FILTRATION RATE > 60.0 (>39); GLUCOSE, FASTING 111 MG/DL (70-100); MAGNESIUM LEVEL 2.4 MG/DL (1.8-2.4); POTASSIUM SERUM 4.5 MEQ/L (3.5-5.1); SODIUM LEVEL 140 MEQ/L (136-145); TOTAL PROTEIN 5.5 GM/DL (6.4-8.2)
[2020-04-21 06:35] LABS: ABG BASE EXCESS 1.8 (-2.0-2.0); ABG HCO3 26.1 MEQ/L (22.0-26.0); ABG O2 SATURATION 98.8 % (95.0-99.0); ABG PARTIAL PRESSURE O2 119.6 mmHg (75.0-100.0); ABG STANDARD HCO3 26.1 MEQ/L (22.0-26.0); ABG TOTAL CO2 27.4 MEQ/L (23.0-31.0); ABG pH (ARTERIAL) 7.433 UNITS (7.350-7.450)
[2020-04-21] MEDS: IPRATROPIUM 0.5MG/ALBUTEROL 2.5MG INH SOL UD 3ML (DUONEB) NEB SCH ×4 (07:44→19:57)
[2020-04-21] MEDS: FLUTICASONE HFA 110 MCG 12 GM INHALER (FLOVENT) INH SCH ×2 (07:45→19:57)
--- NOTE | 2020-04-21 07:47 | IPNPDOC ---
Text Note Date of Service The patient was seen on 04/21/20. NOTE Subjective: Patient was seen and examined this morning at bedside in the ICU. Patient intubated. PEG was successfully placed yesterday. Functioning and receiving feed tubes through it today. Plan to attempt to extubate today. Patient revoked her DNR/DNI wishes and wishes to remain full code. Objective: Constitutional: Awake and alert, in no apparent distress following commands ENT: Sclera are clear Respiratory: Still intubated this morning comfortable able to answer questions by writing things down. Heart: RRR S1 and S2 are normal, no murmur Gastrointestinal: Abdomen is soft, non distended, non tender. PEG tube in place. Musculoskeletal: No peripheral edema Mental Status: A&O x3, normal affect Skin: Warm, dry Assessment/plan: 74-year-old female admitted with dysphagia and respiratory failure suspected to be due to underlying neurologic neuromuscular disease such as ALS but without a formal diagnosis. #Respiratory failure: Presumed 2/2 underlying motor neuron disease such as ALS. She was evaluated by neurology Dr Liu. Patient changed her mind wants to be full code. Patient expected to be extubated today, I was informed in the afternoon patient failed extubation and had to be re-intubated. # Dysphagia: this is from her motor neuron disease. PEG tube placed by Dr. Lopez 04/20/2020. Currently getting tube feeds through PEG # Possible aspiration pneumonia: Patient is on Zosyn IV. This was likely due to her underlying dysphagia. 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 Patient can have a workup completed with neurology including EMG which can be done as an outpatient per Dr. Liu, or would need to be transferred if this needs to be done inpatient to confirm diagnosis and we do not offer EMG studies here. # History of DVT: Continue eliquis twice a day # Sacral decubitus ulcer: Wound care team was consulted. Recommend follow-up with PCP. # DVT prophylaxis: Ninaquis Oldest son Gustavo Paul: [id number], [id number] CODE STATUS: Full code now A [facility] Hospitalist VS,Bianca, I+O VS, Fishbone, I+O Laboratory Tests 04/21/20 05:06 Vital Signs Date Time Temp Pulse Resp B/P (MAP) Pulse Ox O2 Delivery O2 Flow Rate FiO2 04/21/20 06:00 85 135/60 (85) 91 Ventilator 21 04/21/20 04:00 97.7 21 I&O- Last 24 Hours up to 6 AM 04/21/20 06:00 Intake Total 1850 ml Output Total 4135 ml Balance -2285 ml FRANCESCO RASHID MD Apr 21, 2020 07:46
[2020-04-21] MEDS: CHLORHEXIDINE GLUCONATE 0.12 % 15ML UDC (PERIDEX ORAL RINSE) MT SCH ×2 (08:01→20:12)
--- NOTE | 2020-04-21 08:14 | REP ---
INDICATION: ett COMPARISON: 04/20/2020 TECHNIQUE: Portable AP view of the chest FINDINGS: Examination is limited by positioning. Endotracheal tube approximately 3 cm above the emmie and stable position. Nasogastric tube has been removed. Right subclavian catheter extending into the right jugular vein unchanged. Lung vargas demonstrate stable chronic changes with superimposed basilar airspace disease suggested. No new acute process appreciated. IMPRESSION: No significant change from prior examination. Nasogastric tube appears to have been removed. <Electronically signed by Prosper Strange > 04/21/20 0857
[2020-04-21] MEDS: ROSUVASTATIN 10 MG TAB (CRESTOR) NG SCH (09:49)
[2020-04-21] MEDS: APIXABAN 5 MG TAB (ELIQUIS) NG SCH ×2 (09:49→20:13)
[2020-04-21] MEDS: PANTOPRAZOLE 40MG VIAL (C9113 PER 1) IV SCH (09:49)
[2020-04-21] MEDS: NEUTRA-PHOS 1.5 GM PACKET PO SCH ×3 (09:49→20:12)
[2020-04-21] MEDS: ACETAMINOPHEN TAB 650MG DOSE (2X325MG) PO PRN ×2 (09:50→17:58)
--- NOTE | 2020-04-21 11:06 | REP ---
INDICATION: Hypoxemia COMPARISON: 04/21/2020 at 6:52 a.m. TECHNIQUE: Portable AP view of the chest FINDINGS: Endotracheal tube has been removed. Right subclavian catheter extending to the internal jugular vein stable. Mild diffuse airspace disease and left lower lobe consolidation with possible small pleural effusion again suggested. IMPRESSION: 1. Status post extubation. 2. Airspace disease and left lower lobe consolidation with small left pleural effusion. <Electronically signed by Prosper Strange > 04/21/20 110
[2020-04-21 12:34] LABS: ABG BASE EXCESS -4.4 (-2.0-2.0); ABG HCO3 25.4 MEQ/L (22.0-26.0); ABG O2 SATURATION 96.8 % (95.0-99.0); ABG PARTIAL PRESSURE O2 103.5 mmHg (75.0-100.0); ABG STANDARD HCO3 20.8 MEQ/L (22.0-26.0); ABG TOTAL CO2 27.5 MEQ/L (23.0-31.0)
[2020-04-21 12:37] LABS: ABG pH (ARTERIAL) 7.172 UNITS (7.350-7.450)
[2020-04-21 12:38] LABS: ABG PARTIAL PRESSURE CO2 70.8 mmHg (35.0-45.0)
--- NOTE | 2020-04-21 12:59 | IPN ---
PULMONARY PROGRESS NOTE ADDENDUM DATE: 04/21/2020 ADD: Again I attended to Nedra White. She has been extubated. She is mildly tachypneic. On 40% FiO2 saturations between 89-92%. On exam good air exchange on the right, poor air entry on the left. Stat chest x-ray was done. Shows her left hemidiaphragm to be mildly high. There is a large gastric bubble. In view of this we will place her PEG tube to suction. She will be placed on low level BiPAP to assist her for now. We will get a blood gas shortly to see how she is doing on that. We will proceed as outlined above.
--- NOTE | 2020-04-21 12:59 | IPN ---
PULMONARY PROGRESS NOTE DATE: 04/21/2020 SUBJECTIVE: I attended to Nedra White here in the Intensive Care Unit. Patient was examined and chart reviewed. She remains on just pressure support mode and room air. She had her PEG yesterday. T-max overnight 98.3, blood pressure 107-150, heart rate in the 80s, respiratory rate 18 to low 20s without accessory muscle use. Ins and outs, midnight to midnight 2090 mL in with 4085 mL out. Most recent laboratory shows: White blood cell count 10.3, hemoglobin 10.8, platelet count 257,000. Sodium 140, K 3.5, chloride 105, CO2 30, BUN 5, creatinine 0.28, glucose 111. Blood gas done this morning on PEEP and pressure support of 5/10 and 21% shows a pH of 7.433, PCO2 40, PO2 119.6, saturating 98.8%. PHYSICAL EXAM: On exam she is awake, alert and appropriate. Moves all extremities. HEENT: Pupils react, sclerae clear. Neck: Trachea is midline. Chest: Clear to auscultation and percussion, symmetric expansion, no focal adventitious breath sounds identified. Tactile fremitus palpable throughout. Cardiac: Regular with no murmur or gallop. Peripheral pulses palpable. No extremity edema. Abdomen: PEG site to be clean and dry. Extremities: Without cyanosis or clubbing. Neurologically: She is awake, alert and appropriate, moves all extremities. Strength is reasonable. 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 RECOMMENDATIONS: There was some confusion regarding her Code Status. Initially I was told that the Health Care Proxy did not wish her re-intubated. The patient initially had decided she did not want to be re-intubated, but when asked by myself she had said she wanted to be re-intubated. I then had this clarified by the attending physician and clearly at this point she wishes to be a Full Code and we will honor that. At this point she is ready for extubation. We will extubate her therefore. My concern is much of her difficulties were with retrobulbar type symptoms and we will monitor her closely in that regard. We will get a blood gas several hours after extubation as long as she does to have acute difficulties. Further recommendations will be made in the Progress Record as new information becomes available. AMBROCIO
[2020-04-21] MEDS ORDERED: PROPOFOL 1,000 MG/100 ML VIAL As Ordered ONE (13:03)
[2020-04-21] MEDS ORDERED: LIDOCAINE 1% MDV 20ML VIAL As Ordered ONE (13:04)
[2020-04-21] MEDS ORDERED: NS 1,000 ML IV ONE (13:20)
--- NOTE | 2020-04-21 13:31 | REP ---
INDICATION: INTUBATION. COMPARISON: Comparison chest x-ray 21 April 2020 at 10:43 a.m.. TECHNIQUE: Portable upright AP chest radiograph. 1:22 p.m. film. FINDINGS: Endotracheal tube is seen at the level of the transverse aorta, 1.9 cm above the emmie. The right subclavian line ascends in the right neck consistent with a jugular vein location. EKG monitoring electrodes overlie the chest. Heart is mildly enlarged. There is pleural opacity at the left base obscuring left hemidiaphragm. Hazy parenchymal opacity is seen in the left base as well. Lung findings are unchanged.. IMPRESSION: Status post intubation. Endotracheal tube as above. Lung vargas unchanged.. <Electronically signed by Patrick Lao > 04/21/20 1195
[2020-04-21] MEDS ORDERED: MIDAZOLAM INJ 2MG/2ML VIAL (J2250 PER 1MG) IV ONE (13:45)
--- NOTE | 2020-04-21 13:58 | RO ---
OPERATIVE NOTE DATE OF OPERATION: 04/21/2020 PREOPERATIVE DIAGNOSIS: Respiratory failure. POSTOPERATIVE DIAGNOSIS: Respiratory failure. Procedure was performed emergently. PROCEDURE: Endotracheal intubation. SURGEON: Dr. Ulrich I was called emergently at the bedside for Nedra Bledsoe. She had been extubated earlier today. Despite being on non-invasive support, she had increased respiratory difficulties. Blood gas shows a pH 7.172, pCO2 of 70.8 with a paO2 of 103.5. Patient was ventilated with an Ambu bag-valve device and given 2 mg of intravenous Versed. Using a #4 Scruggs blade, the vocal cords were easily visualized. A #8.5 endotracheal tube was placed beyond the level of the cords under direct visualization. Balloon was inflated. Patient was ventilated, and there was excellent color change on the CO2 detector. Good bilateral breath sounds were delivered. She was hooked to the ventilator, and ventilator manipulations were made by myself. Chest x-ray was done, which shows the endotracheal tube to be about 1-1.5 cm above the emmie. She had some mild hypotension initially post procedure that was transient. Despite given 2 mg of Versed, she was easily arousable, awake, alert, and comfortable. Repeat blood pressure now 80s systolic.
[2020-04-21 14:21] LABS: ABG BASE EXCESS -3.4 (-2.0-2.0); ABG HCO3 23.2 MEQ/L (22.0-26.0); ABG O2 SATURATION 98.8 % (95.0-99.0); ABG PARTIAL PRESSURE CO2 48.4 mmHg (35.0-45.0); ABG PARTIAL PRESSURE O2 159.9 mmHg (75.0-100.0); ABG STANDARD HCO3 21.7 MEQ/L (22.0-26.0); ABG TOTAL CO2 24.7 MEQ/L (23.0-31.0); ABG pH (ARTERIAL) 7.299 UNITS (7.350-7.450)
[2020-04-21 17:05] LABS: ABG BASE EXCESS -1.7 (-2.0-2.0); ABG HCO3 22.4 MEQ/L (22.0-26.0); ABG O2 SATURATION 98.6 % (95.0-99.0); ABG PARTIAL PRESSURE CO2 35.7 mmHg (35.0-45.0); ABG PARTIAL PRESSURE O2 132.4 mmHg (75.0-100.0); ABG STANDARD HCO3 23.1 MEQ/L (22.0-26.0); ABG TOTAL CO2 23.5 MEQ/L (23.0-31.0); ABG pH (ARTERIAL) 7.416 UNITS (7.350-7.450)
[2020-04-21] MEDS: SODIUM CHLORIDE 0.9% INJ 10 ML SYR IV SCH (17:35)
[2020-04-21] MEDS ORDERED: NS 500 ML IV ONE (18:15)
[2020-04-21] MEDS: propofoL 1,000 MG in IV 1 EA IV SCH (18:16)
[2020-04-22] VITALS (57 sets, daily range): BP systolic 73–138; BP diastolic 34–78; O2SAT 98
[2020-04-22] MEDS ORDERED: propofoL 1,000 MG in IV 1 EA IV SCH (01:00)
[2020-04-22] MEDS: propofoL 1,000 MG in IV 1 EA IV SCH (01:00)
[2020-04-22] MEDS: MIDAZOLAM INJ 2MG/2ML VIAL (J2250 PER 1MG) IV PRN ×2 (01:46→05:33)
[2020-04-22] MEDS: ACETAMINOPHEN TAB 650MG DOSE (2X325MG) PO PRN (04:24)
[2020-04-22] MEDS: PIPERACILLIN/TAZOBACTAM SOD 3.375 GM in D5W MINI-BAG PLUS 50 ML IV SCH (04:51)
[2020-04-22 05:49] LABS: ABG BASE EXCESS -1.2 (-2.0-2.0); ABG HCO3 22.6 MEQ/L (22.0-26.0); ABG O2 SATURATION 94.5 % (95.0-99.0); ABG PARTIAL PRESSURE CO2 34.3 mmHg (35.0-45.0); ABG PARTIAL PRESSURE O2 66.7 mmHg (75.0-100.0); ABG STANDARD HCO3 23.4 MEQ/L (22.0-26.0); ABG TOTAL CO2 23.6 MEQ/L (23.0-31.0); ABG pH (ARTERIAL) 7.436 UNITS (7.350-7.450)
[2020-04-22] MEDS: SODIUM CHLORIDE 0.9% INJ 10 ML SYR IV SCH ×2 (05:56→16:51)
[2020-04-22 06:16] LABS: BASO % 0.4 % (0.0-1.0); EOS # 0.2 10^3/uL (0.0-0.5); EOS % 1.8 % (0.0-3.0); HEMATOCRIT 29.6 % (36.0-47.0); HEMOGLOBIN 9.5 g/dl (12.0-15.5); LYMPH # 0.9 10^3/uL (1.5-5.0); LYMPH % 9.7 % (24.0-44.0); MEAN CORPUSCULAR HEMOGLOBIN 28.4 pg (27.0-33.0); MEAN CORPUSCULAR HGB CONC 32.1 g/dl (32.0-36.5); MEAN CORPUSCULAR VOLUME 88.4 fl (80.0-96.0); MONO # 0.7 10^3/uL (0.0-0.8); MONO % 8.2 % (0.0-5.0); NEUTROPHILS # 7.1 10^3/uL (1.5-8.5); NEUTROPHILS % 79.7 % (36.0-66.0); PLATELET COUNT, AUTOMATED 228 10^3/uL (150-450); RED BLOOD COUNT 3.35 10^6/uL (4.00-5.40)
[2020-04-22 06:51] LABS: ALBUMIN 1.6 GM/DL (3.2-5.2); ALT/SGPT 11 U/L (12-78); BILIRUBIN,TOTAL 0.4 MG/DL (0.2-1.0); BLOOD UREA NITROGEN 5 MG/DL (7-18); CALCIUM LEVEL 7.9 MG/DL (8.8-10.2); CARBON DIOXIDE LEVEL 27 MEQ/L (21-32); CHLORIDE LEVEL 107 MEQ/L (98-107); CREATININE FOR GFR 0.34 MG/DL (0.55-1.30); GLOMERULAR FILTRATION RATE > 60.0 (>39); GLUCOSE, FASTING 78 MG/DL (70-100); SODIUM LEVEL 141 MEQ/L (136-145)
[2020-04-22] MEDS: IPRATROPIUM 0.5MG/ALBUTEROL 2.5MG INH SOL UD 3ML (DUONEB) NEB SCH ×4 (07:20→19:54)
[2020-04-22] MEDS: FLUTICASONE HFA 110 MCG 12 GM INHALER (FLOVENT) INH SCH (07:20)
--- NOTE | 2020-04-22 07:40 | REP ---
INDICATION: ett COMPARISON: 04/21/2020 TECHNIQUE: Portable AP view of the chest FINDINGS: Endotracheal tube 2 cm above the emmie. Left PICC line with tip in the SVC. Cardiac silhouette is normal. Left lower lobe/retrocardiac consolidation along with small left pleural effusion again identified. No pneumothorax. Free air below the right hemidiaphragm cannot definitively be excluded and warrants clinical/physical correlation as well as repeat chest x-ray or CT of the abdomen and pelvis for further investigation. IMPRESSION: 1. Left lower lobe/retrocardiac consolidation with small left pleural effusion again noted. 2. Cannot exclude pneumoperitoneum with free air below the right hemidiaphragm. Further investigation is recommended. <Electronically signed by Prosper Strange > 04/22/20 0737
[2020-04-22] MEDS: KCL 20MEQ IN D5/0.45NS 1000ML 1,000 ML IV SCH ×2 (07:46→16:51)
--- NOTE | 2020-04-22 08:35 | ROOR ---
Patient Name: Nedra Bledsoe Procedure Date: 04/20/2020 1:13 PM Date of : 1945 Age: 74 Gender: Female Note Status: Finalized Procedure: Upper GI endoscopy Indications: Place PEG due to aspiration risk, Place PEG due to neurological disorder causing impaired swallowing Providers: Caleb Lopez MD Referring MD: 2. Inpatient 2. Inpatient Requesting Provider: Medicines: General Anesthesia Complications: No immediate complications. Procedure: Pre-Anesthesia Assessment: - Prior to the procedure, a History and Physical was performed, and patient medications and allergies were reviewed. The patient is unable to give consent secondary to competent, intubated. The risks and benefits of the procedure and the sedation options and risks were discussed with the patient's daughter. All questions were answered and informed consent was obtained. Patient identification and proposed procedure were verified by the physician, the nurse and the medical auditor in the procedure room. Mental Status Examination: alert and oriented. Airway Examination: orotracheal intubation. Respiratory Examination: clear to auscultation. CV Examination: normal. Prophylactic Antibiotics: The patient on antibiotic treatment for pneumonia with Zosyn prophylactic antibiotics for planned PEG placement. The patient received antibiotic therapy today, before the procedure started. Prior Anticoagulants: The patient has taken no previous anticoagulant or antiplatelet agents. ASA Grade Assessment: II - A patient with mild systemic disease. After reviewing the risks and benefits, the patient was deemed in satisfactory condition to undergo the procedure. The anesthesia plan was to use general anesthesia. Immediately prior to administration of medications, the patient was re-assessed for adequacy to receive sedatives. The heart rate, respiratory rate, oxygen saturations, blood pressure, adequacy of pulmonary ventilation, and response to care were monitored throughout the procedure. The physical status of the patient was re-assessed after the procedure. The Endoscope was introduced through the mouth, and advanced to the second part of duodenum. The upper GI endoscopy was accomplished without difficulty. The patient tolerated the procedure well. Findings: There is no endoscopic evidence of bleeding, stricture or ulcerations in the entire esophagus. A single localized, small non-bleeding erosion was found on the lesser curvature of the stomach. There were no stigmata of recent bleeding. The first portion of the duodenum and second portion of the duodenum were normal. The patient was placed in the supine position for PEG placement. The stomach was insufflated to appose gastric and abdominal almaguer. A site was located in the body of the stomach with good transillumination for placement. The abdominal wall was marked and prepped in a sterile manner. The area was anesthetized with 3 mL of 1% lidocaine. The trocar needle was introduced through the abdominal wall and into the stomach under direct endoscopic view. A snare was introduced through the endoscope and opened in the gastric lumen. The guide wire was passed through the trocar and into the open snare. The snare was closed around the guide wire. The endoscope and snare were removed, pulling the wire out through the mouth. A skin incision was made at the site of needle insertion. The externally removable 20 Fr Bard gastrostomy tube was lubricated. The G-tube was passed over the guide wire through the mouth, and into the stomach. The trocar needle was removed, and the gastrostomy tube was pulled out from the stomach through the skin. The guide wire was removed, and the external bumper attached to the gastrostomy tube. The feeding tube was then cut to an appropriate length. The final position of the gastrostomy tube was confirmed by relook endoscopy, and skin marking noted to be 2 cm at the external bumper. The final tension and compression of the abdominal wall by the PEG tube and external bumper were checked and revealed that the bumper was loose and lightly touching the skin. The feeding tube was capped, and the tube site was cleaned and dressed. Impression: - Non-bleeding erosive gastropathy. - Normal first portion of the duodenum and second portion of the duodenum. - An externally removable PEG placement was successfully completed. - No specimens collected. Recommendation: - Admit the patient to ICU for ongoing care. Procedure Code(s): --- Professional --- 68849, Esophagogastroduodenoscopy, flexible, transoral; with directed placement of percutaneous gastrostomy tube Diagnosis Code(s): --- Professional --- K31.89, Other diseases of stomach and duodenum R63.3, Feeding difficulties Z43.1, Encounter for attention to gastrostomy R29.818, Other symptoms and signs involving the nervous system R13.10, Dysphagia, unspecified CPT copyright 2019 [employer]. All rights reserved. The codes documented in this report are preliminary and upon roll plugger review may be revised to meet current compliance requirements. Caleb Lopez MD Caleb Lopez MD 04/22/2020 8:35:07 AM Electronically signed by Caleb Lopez MD Number of Addenda: 0 Note Initiated On: 04/20/2020 1:13 PM Estimated Blood Loss: Estimated blood loss was minimal.
--- NOTE | 2020-04-22 08:53 | IPNPDOC ---
Text Note Date of Service The patient was seen on 04/22/20. NOTE I visited patient today. I placed a PEG tube endoscopically saturday afternoon. She failed trial of extubation yesterday and was reintubated. Heg PEG tube has been placed on suction overnight. She is seen intubated. She denies any abdominal discomfort. VS stable On exam She is awake, alert, responds appropriately She is intubated, breathing spontaneously abdomen is nondistended. Heg PEG tube site is dry, no drainage, no erythema. Her PEG is connected to suction with light coffeebrown drainage. No tenderness on palpation throughout abdomen Labs no leukocytosis Impression/Plan: POD2 PEG placement Her CXR this morning shows a small amount of pneumoperitoneum underneath the right hemidiaphragm most likely PEG related. I reviewed the prior images yesterday. Her stomach was distended when she was extubated so some of those air may have leaked. Her stomach decompressed with PEG wall suction. She is not showing signs of peritonitis. So I think we can use the PEG tube for feeding. will observe course over the weekend. Dsicussed with Dr. Avila. VS,Bianca, I+O VS, Bianca, I+O Laboratory Tests 04/22/20 05:57 Vital Signs Date Time Temp Pulse Resp B/P (MAP) Pulse Ox O2 Delivery O2 Flow Rate FiO2 04/22/20 07:21 98 Ventilator 21 04/22/20 07:21 75 14 04/22/20 06:00 85/48 (60) 04/22/20 04:00 97.6 04/21/20 10:35 10.0 I&O- Last 24 Hours up to 6 AM 04/22/20 06:00 Intake Total 4415 ml Output Total 2150 ml Balance 2265 ml SOPHIE VERA MD Apr 22, 2020 08:53
[2020-04-22] MEDS: NEUTRA-PHOS 1.5 GM PACKET PO SCH ×3 (09:12→20:13)
[2020-04-22] MEDS: CHLORHEXIDINE GLUCONATE 0.12 % 15ML UDC (PERIDEX ORAL RINSE) MT SCH ×2 (09:12→20:13)
[2020-04-22] MEDS: PANTOPRAZOLE 40MG VIAL (C9113 PER 1) IV SCH (09:12)
--- NOTE | 2020-04-22 10:06 | IPNPDOC ---
Text Note Date of Service The patient was seen on 04/22/20. NOTE Subjective: Patient was seen and examined this morning at bedside in the ICU. Unfortunately patient failed extubation yesterday. I discussed with the patient the plan for long-term trach placement and patient is agreeable. There is no acute overnight events. Patient did complain of some mild left upper quadrant discomfort which may be related to the PEG which we will continue to observe. Objective: Constitutional: Awake and alert, in no apparent distress following commands ENT: Sclera are clear Respiratory: intubated comfortable able to answer questions by writing things down. Heart: RRR S1 and S2 are normal, no murmur Gastrointestinal: Abdomen is soft, non distended. PEG tube in place. There is no tenderness on palpitation over the left upper quadrant for the patient indicated it was mildly uncomfortable Musculoskeletal: No peripheral edema Mental Status: A&O x3, normal affect Skin: Warm, dry Assessment/plan: 74-year-old female admitted with dysphagia and respiratory failure suspected to be due to underlying neurologic neuromuscular disease such as ALS, patient needed to be intubated due to her disease process and failed extubation attempt on 04/21/2020. The plan is for long-term trach placement. PEG tube was placed for feeding. #Respiratory failure: Presumed 2/2 underlying motor neuron disease such as ALS. She was evaluated by neurology Dr Liu. Failed extubation attempt on 04/21/2020 and was reintubated. Plan is for long-term trach placement. Dr Rosado consulted - likely early next week once off of eliquis. # Dysphagia: this is from her motor neuron disease. PEG tube placed by Dr. Lopez 04/20/2020. Currently getting tube feeds through PEG. # Possible aspiration pneumonia: Patient was treated with Zosyn IV. Completed treatment. This was likely due to her underlying dysphagia. 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 Patient can have a workup completed with neurology including EMG which can be done as an outpatient per Dr. Liu. # History of DVT: Hold eliquis until trach displaced resume after. # Sacral decubitus ulcer: Wound care team was consulted. Recommend follow-up with PCP. # DVT prophylaxis: Heparin. Oldest son Gustavo Paul: [phone], [phone] CODE STATUS: Full code now A Yousef Hospitalist VS,Bianca, I+O VS, Bianca, I+O Laboratory Tests 04/22/20 05:57 Vital Signs Date Time Temp Pulse Resp B/P (MAP) Pulse Ox O2 Delivery O2 Flow Rate FiO2 04/22/20 07:21 98 Ventilator 21 04/22/20 07:21 75 14 04/22/20 06:00 85/48 (60) 04/22/20 04:00 97.6 04/21/20 10:35 10.0 I&O- Last 24 Hours up to 6 AM 04/22/20 06:00 Intake Total 4415 ml Output Total 2150 ml Balance 2265 ml FRANCESCO RASHID MD Apr 22, 2020 10:05
--- NOTE | 2020-04-22 12:26 | CCN ---
CRITICAL CARE NOTE DATE: 04/22/2020 CRITICAL CARE TIME: One hour 41 minutes; this excludes all procedures. A great deal of time was spent at the bedside discussing care with the patient and coordinating consultations. SUBJECTIVE: Nedra is a 74-year-old female with a admission that started on April 14 for decreased ability to swallow. She was found to be in hypercarbic respiratory failure. Clearly she is ventilator dependent now, failed extubation trial, and will likely require mechanical ventilation for the rest of her life. Suspicion her motor neuron disease is likely ALS and neurology is following. The patient was treated for aspiration pneumonia. This morning, the patient is able to communicate better with me. She clearly states she wants to go home. I explained the difficulty of mechanical ventilation in the home; however, I have asked her to focus on the question even if she remained in hospital or in a chronic care facility, would she want to have a tracheostomy in order to prolong her life and she said yes. She understands that this will likely be long-term. She states at this point in time, she does not want palliative care and she wants to proceed with tracheostomy. She clearly documents her wishes in writing. This morning, she states that other having too many blankets that she has no complaints. She has had no cough, fever, or chills. On chest x-ray this morning, there is some subdiaphragmatic air on the right. I discussed this with the surgical team; he believes it is likely secondary to the recent PEG tube placement and that she shows no signs of sepsis, her abdomen is benign on exam, and therefore, he will continue to follow the patient, which I think is very reasonable. She remains with hypoalbuminemia and protein malnourishment. I have initiated tube feeds today. She has been on Eliquis for a history of DVT. When I asked if she has an IVC filter, she states that she had that removed. I will stop her Eliquis in anticipation for a tracheostomy next week and I have placed her on heparin. OBJECTIVE: VITAL SIGNS: Pulse is 81, blood pressure 113/59, respiratory rate 19, oxygen saturation 93% on 21. She is on pressor support ventilation. Temperature is 98.1. GENERAL: Patient is awake, alert, and able to follow commands. She appears in no respiratory distress. HEENT: Sclerae clear and anicteric. Pupils are dilated, but reactive approximately 8 mm. Mucous membranes are moist. Tongue is midline. NECK: Supple. No tracheal deviation or mass. LYMPH: No cervical, supraclavicular, or axillary adenopathy. PULMONARY: Clear to auscultation without rales, rhonchi, or wheezes. No dullness to percussion. No accessory muscle use. CARDIAC: Distant S1, S2 without audible murmur, rub, or gallop. No elevated JVP. No peripheral edema. ABDOMEN: Soft, nontender, and nondistended. No discernable hepatosplenomegaly. PEG is in place without surrounding erythema or exudate. Had been on suction overnight due to distention with air. EXTREMITIES: No cyanosis, clubbing, or edema. Right arm with chronic hemiparesis. Lower extremities she does not move to command. NEUROLOGIC: Her left arm she is able to write and communicate with and has fairly good function of her left arm. No myoclonus. No evidence of seizure activity. I did not inspect her tongue for fasciculations. LABORATORY DATA: Evaluation shows an arterial blood gas of 7.44, pCO2 of 34, PaO2 of 67. Sodium is 141, potassium is 4.0, chloride is 107, bicarb of 27, BUN of 5, and a creatinine of 0.34. Albumin is 1.6. White blood cell count is 9.0, hemoglobin 9.5, platelet count 228,000. IMAGING DATA: Chest x-ray shows air into the right diaphragm; however, does show some significant improvement of the right lower lobe infiltrate. Endotracheal tube is in good position. IMPRESSION: 1. Acute hypercarbic respiratory failure clearly now ventilatory dependent on pressure support and failed extubation trial yesterday. The patient is awake on ventilation able to communicate clearly. She desires to proceed with tracheostomy. I have attempted to contact her daughter, Nafisa, as she identifies her daughter as her health care proxy. She states she also has Gustavo as her secondary health care proxy. I have no paperwork confirming this, but this is what she has written to me in communication. Tammie's number is [phone]. Gustavo's number is [phone]. When I attempted to call Tammie, there was no answer and the voicemail was not set up. I will continue to attempt to contact the family throughout the day to discuss their mother's choice. 2. 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 Already has percutaneous endoscopic gastrostomy (PEG) tube placed. Will have all feedings and medications through tube at time of discharge pending tracheostomy after evaluation by ENT. 3. Question aspiration pneumonia. The patient has been on antibiotics for eight days. Will discontinue Zosyn. 4. Deep vein thrombosis (DVT) prophylaxis. Will switch to heparin as we are likely proceeding with tracheostomy. 5. Protein malnourishment. Will initiate tube feeds today. 6. History of hypercholesterolemia with motor neuron disease, muscle wasting, and chronic immobility. Will discontinue statin therapy. 7. Free air under the right diaphragm. I discussed with surgery, as mentioned above, felt to be secondary to PEG tube placement. No evidence of sepsis. Will continue to monitor for signs of abdominal discomfort. 8. Gastrointestinal (GI) prophylaxis on Protonix. Overall the patient has a guarded prognosis. Family will be updated when they are able to be reached. MTDD
[2020-04-22] MEDS: ALPRAZolam 0.5 MG TAB PO PRN ×2 (12:59→20:14)
[2020-04-22] MEDS: HEPARIN SOD (PORCINE) 5000UNITS/ML 1ML VIAL/SYRINGE SQ SCH ×2 (12:59→22:07)
[2020-04-22] MEDS ORDERED: NS 1,000 ML IV ONE (21:30)
[2020-04-22 22:00] LABS: CK-MB VALUE MASS 3.4 NG/ML (<3.6); MB/CK RELATIVE INDEX 2.96 (< OR =4); TROPONIN I 0.1 NG/ML (< 0.10)
[2020-04-23] VITALS (36 sets, daily range): BP systolic 81–155; BP diastolic 38–77; O2SAT 95
[2020-04-23] MEDS: KCL 20MEQ IN D5/0.45NS 1000ML 1,000 ML IV SCH ×3 (03:14→21:50)
[2020-04-23 03:32] LABS: BASO # 0.1 10^3/uL (0.0-0.2); BASO % 0.5 % (0.0-1.0); EOS # 0.2 10^3/uL (0.0-0.5); EOS % 2.4 % (0.0-3.0); HEMATOCRIT 31.9 % (36.0-47.0); HEMOGLOBIN 9.9 g/dl (12.0-15.5); LYMPH # 0.9 10^3/uL (1.5-5.0); LYMPH % 9.3 % (24.0-44.0); MEAN CORPUSCULAR HEMOGLOBIN 27.7 pg (27.0-33.0); MEAN CORPUSCULAR VOLUME 89.4 fl (80.0-96.0); MONO # 0.7 10^3/uL (0.0-0.8); MONO % 6.5 % (2.0-8.0); NEUTROPHILS # 8.2 10^3/uL (1.5-8.5); NEUTROPHILS % 80.9 % (36.0-66.0); PLATELET COUNT, AUTOMATED 252 10^3/uL (150-450); RED BLOOD COUNT 3.57 10^6/uL (4.00-5.40); WHITE BLOOD COUNT 10.1 10^3/uL (4.0-10.0)
[2020-04-23 04:03] LABS: ALBUMIN 1.6 GM/DL (3.2-5.2); ALT/SGPT 11 U/L (12-78); BILIRUBIN,TOTAL 0.2 MG/DL (0.2-1.0); BLOOD UREA NITROGEN 6 MG/DL (7-18); CALCIUM LEVEL 7.3 MG/DL (8.8-10.2); CARBON DIOXIDE LEVEL 24 MEQ/L (21-32); CHLORIDE LEVEL 112 MEQ/L (98-107); CK-MB VALUE MASS 3.5 NG/ML (<3.6); CPK CREATINE PHOSPHOKINASE 135 U/L (26-192); CREATININE FOR GFR 0.24 MG/DL (0.55-1.30); GLOMERULAR FILTRATION RATE > 60.0 (>39); GLUCOSE, FASTING 120 MG/DL (70-100); MAGNESIUM LEVEL 1.9 MG/DL (1.8-2.4); MB/CK RELATIVE INDEX 2.59 (< OR =4); POTASSIUM SERUM 4.2 MEQ/L (3.5-5.1); SODIUM LEVEL 143 MEQ/L (136-145); TOTAL PROTEIN 4.8 GM/DL (6.4-8.2); TROPONIN I 0.08 NG/ML (< 0.10)
[2020-04-23] MEDS: HEPARIN SOD (PORCINE) 5000UNITS/ML 1ML VIAL/SYRINGE SQ SCH ×3 (06:13→21:50)
[2020-04-23] MEDS: SODIUM CHLORIDE 0.9% INJ 10 ML SYR IV SCH ×2 (06:13→17:47)
[2020-04-23] MEDS: IPRATROPIUM 0.5MG/ALBUTEROL 2.5MG INH SOL UD 3ML (DUONEB) NEB SCH ×4 (07:13→20:13)
[2020-04-23] MEDS: CHLORHEXIDINE GLUCONATE 0.12 % 15ML UDC (PERIDEX ORAL RINSE) MT SCH ×2 (07:48→20:03)
[2020-04-23] MEDS: ALPRAZolam 0.5 MG TAB PO PRN ×4 (07:49→20:03)
[2020-04-23] MEDS: NEUTRA-PHOS 1.5 GM PACKET PO SCH ×3 (07:49→20:03)
--- NOTE | 2020-04-23 07:49 | IPNPDOC ---
Text Note Date of Service The patient was seen on 04/23/20. NOTE Subjective: Patient was seen and examined this morning at bedside in the ICU. Her left upper quadrant abdominal pain is better than yesterday. Monitor her blood pressure which has been a little bit soft. She has no complaints this morning has been getting PEG feeding. She is here awaiting trach placement early next week. There was no acute overnight events reported to me. Objective: Constitutional: Awake and alert, in no apparent distress following commands ENT: Sclera are clear Respiratory: intubated comfortable able to answer questions by writing things down. Heart: RRR S1 and S2 are normal, no murmur Gastrointestinal: Abdomen is soft, non distended. PEG tube in place with tube feeding running. Musculoskeletal: No peripheral edema Mental Status: A&O x3, normal affect Skin: Warm, dry Assessment/plan: 74-year-old female admitted with dysphagia and respiratory failure suspected to be due to underlying neurologic neuromuscular disease such as ALS, patient ne eded to be intubated due to her disease process and failed extubation attempt on 04/21/2020. The plan is for long-term trach placement. PEG tube was placed for feeding. #Respiratory failure: Presumed 2/2 underlying motor neuron disease such as ALS. She was evaluated by neurology Dr Liu. Failed extubation attempt on 04/21/2020 and was reintubated. Plan is for long-term trach placement. Dr Rosado consulted - likely early next week off of eliquis # Dysphagia: this is from her motor neuron disease. PEG tube placed by Dr. Lopez 04/20/2020. Currently getting tube feeds through PEG. There is decreased amount of air under the right hemidiaphragm which is assuring. # Possible aspiration pneumonia: Patient was treated with Zosyn IV. Completed treatment. This was likely due to her underlying dysphagia.There is no new infiltrate seen on her chest x-ray although she did have a low-grade fever 100.4 04/23/2020 which we will continue to monitor. 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 Patient can have a workup completed with neurology including EMG which can be done as an outpatient per Dr. Liu. # History of DVT: Hold eliquis until trach displaced resume after. # Sacral decubitus ulcer: Wound care team was consulted. Recommend follow-up with PCP. # DVT prophylaxis: Heparin. Oldest son Gustavo Paul: [phone], [phone] CODE STATUS: Full code now A Cynthia Hospitalist Bianca VERMA, I+O VSBianca, I+O Laboratory Tests 04/23/20 03:07 Vital Signs Date Time Temp Pulse Resp B/P (MAP) Pulse Ox O2 Delivery O2 Flow Rate FiO2 04/23/20 07:13 95 Ventilator 21 04/23/20 07:13 101 29 04/23/20 06:00 117/57 (77) 04/23/20 04:00 98.9 04/21/20 10:35 10.0 I&O- Last 24 Hours up to 6 AM 04/23/20 06:00 Intake Total 4510 ml Output Total 3000 ml Balance 1510 ml FRANCESCO RASHID MD Apr 23, 2020 07:49
[2020-04-23] MEDS: ACETAMINOPHEN TAB 650MG DOSE (2X325MG) PO PRN ×2 (07:50→15:35)
--- NOTE | 2020-04-23 08:19 | REP ---
INDICATION: resp failure. COMPARISON: Comparison chest x-ray April 22, 2020. TECHNIQUE: Portable upright AP chest radiograph. FINDINGS: Endotracheal tube remains in good position at the level of the transverse aorta. A a left-sided PICC line terminates in the midline. Monitoring electrodes are seen. There is a decreased amount of free air under the right hemidiaphragm compared with yesterday's radiograph. A gastrostomy tube is noted in place in the left upper quadrant of the abdomen. There is slight blunting of the lateral pleural angles on both sides. Heart size is unchanged. No new infiltrate is seen. IMPRESSION: No new infiltrates seen. Decreased amount of air under the right hemidiaphragm. Endotracheal and gastrostomy tubes remain in place. Left-sided PICC line.. <Electronically signed by Patrick Lao > 04/23/20 0877
--- NOTE | 2020-04-23 10:14 | CCN ---
CRITICAL CARE NOTE DATE: 04/23/2020 CRITICAL CARE TIME: 43 minutes; this excludes all procedures. SUBJECTIVE: Patient resting comfortably at bedside while sleeping. Blood pressure is a little soft when awake. When she awakes, blood pressure is normal at 108/85 with a mean arterial pressure at 75. The patient has no complaints other than some discomfort on her back side. She has had some excoriation and pressure ulcer formation. It does appear that there could be some kia there; therefore, I have written for Nystatin today. She is able to communicate with writing. Offers no symptoms. Denies abdominal discomfort. She has been having tube feed consistency stools. X-ray this morning shows decreased amount of free air under the diaphragm. She did have a low grade elevated temperature of 100.4 overnight. She denies any cough or chills. OBJECTIVE: VITAL SIGNS: Temperature is 100.4, pulse is 102, respiratory rate is 20, blood pressure 108/85 with a mean arterial pressure of 75. Oxygen saturation is 94% on 0.21. GENERAL: Awake, alert, oriented. HEENT: Sclerae clear and anicteric. Pupils equal and reactive to light. Mucous membranes moist without lesions. Endotracheal tube is in place. NECK: Supple. No stridor. No tracheal deviation. LYMPH: No cervical, supraclavicular, or axillary adenopathy. PULMONARY: Clear to auscultation without rales, rhonchi, or wheezes. No dullness to percussion. No accessory muscle. CARDIAC: Distant S1 without audible murmur, rub, or gallop. No elevated JVP. No significant peripheral edema. ABDOMEN: Soft, nontender, and nondistended. No discernable hepatosplenomegaly. PEG tube is in place without surrounding erythema or exudate. EXTREMITIES: No cyanosis, clubbing, or edema. Right arm has chronic hemiparesis. NEUROLOGIC: Left arm able to write and communicate. LABORATORY DATA: Evaluation shows sodium 143, potassium 4.2, chloride 112, bicarb 24, BUN 6, creatinine 0.24 with a calcium of 7.3. Hemoglobin is 9.9 with a white blood cell count of 10.1. IMAGING DATA: Chest x-ray shows less free air under the right diaphragm. It does show some right lower lobe infiltrate that is slightly increased from last exam. Endotracheal tube is in good position. IMPRESSION: 1. Acute hypercarbic respiratory failure ventilatory dependent awaiting tracheostomy currently on SIMV/pressure support currently doing well. Arterial blood gas was not obtained this morning. We will obtain one just because she has been receiving some benzodiazepine for her anxiety to ensure that there is adequate ventilation. 2. Motor neuron disease thought to be likely amyotrophic lateral sclerosis (ALS) with bulbar symptoms. Percutaneous endoscopic gastrostomy (PEG) tube is in place. Tube feedings initiated. 3. Zosyn discontinued yesterday. Will continue to monitor for further signs of sepsis. There is a new infiltrate on chest x-ray. Will ensure head of the bed is raised so there is less likely aspiration events. 4. Severe protein malnourishment. Tube feeds initiated. 5. Gastrointestinal (GI) prophylaxis on Protonix. 6. Deep vein thrombosis (DVT) prophylaxis on heparin. This will be held prior to tracheostomy. Overall the patient has a guarded prognosis. I updated the family yesterday. I spoke with, Nafisa, her daughter who understands the progression and plan for tracheostomy early next week. [facility]
[2020-04-23 10:20] LABS: ABG BASE EXCESS 1.5 (-2.0-2.0); ABG HCO3 25.6 MEQ/L (22.0-26.0); ABG O2 SATURATION 95.7 % (95.0-99.0); ABG PARTIAL PRESSURE CO2 38.7 mmHg (35.0-45.0); ABG PARTIAL PRESSURE O2 74.4 mmHg (75.0-100.0); ABG STANDARD HCO3 25.7 MEQ/L (22.0-26.0); ABG TOTAL CO2 26.8 MEQ/L (23.0-31.0); ABG pH (ARTERIAL) 7.439 UNITS (7.350-7.450)
[2020-04-23] MEDS: PANTOPRAZOLE 40MG VIAL (C9113 PER 1) IV SCH (11:00)
--- NOTE | 2020-04-23 11:03 | ECGEPIP ---
[facility] Test Date: 2020-04-22 Pat Name: FEMI GUARDADO Department: Room: [place] [address] Gender: Female [employer]: : 1945 Requested By: PASQUALE Dodge Order Number: [id number] Reading MD: Jax Hay Measurements Intervals [place] Rate: 91 P: 32 AL: 144 QRS: -16 QRSD: 100 T: 111 QT: 383 QTc: 473 Interpretive Statements SINUS RHYTHM LOW QRS VOLTAGE IN PRECORDIAL LEADS INFERIOR MYOCARDIAL INFARCTION, PROBABLY OLD Rate decreased from tracing done 04-13-20 Electronically Signed on 04-23-2020 11:03:29 EST by Jax Hay
[2020-04-23] MEDS: MIDAZOLAM INJ 2MG/2ML VIAL (J2250 PER 1MG) IV PRN ×4 (17:45→21:50)
[2020-04-23] MEDS: NYSTATIN 100,000 UNITS/GM TOPICAL PWD 15 GM TOP SCH (20:42)
[2020-04-24] VITALS (26 sets, daily range): BP systolic 99–150; BP diastolic 48–65; O2SAT 93–95
[2020-04-24] MEDS: ALPRAZolam 0.5 MG TAB PO PRN ×5 (00:17→21:10)
[2020-04-24] MEDS: MIDAZOLAM INJ 2MG/2ML VIAL (J2250 PER 1MG) IV PRN ×6 (01:03→18:33)
[2020-04-24] MEDS: SODIUM CHLORIDE 0.9% INJ 10 ML SYR IV SCH ×2 (05:24→18:33)
[2020-04-24] MEDS: HEPARIN SOD (PORCINE) 5000UNITS/ML 1ML VIAL/SYRINGE SQ SCH ×3 (05:25→21:11)
[2020-04-24 06:04] LABS: BASO # 0.1 10^3/uL (0.0-0.2); BASO % 0.5 % (0.0-1.0); EOS # 0.4 10^3/uL (0.0-0.5); EOS % 3.9 % (0.0-3.0); HEMATOCRIT 30.6 % (36.0-47.0); HEMOGLOBIN 9.4 g/dl (12.0-15.5); LYMPH # 0.8 10^3/uL (1.5-5.0); LYMPH % 7.4 % (24.0-44.0); MEAN CORPUSCULAR HEMOGLOBIN 27.9 pg (27.0-33.0); MEAN CORPUSCULAR HGB CONC 30.7 g/dl (32.0-36.5); MEAN CORPUSCULAR VOLUME 90.8 fl (80.0-96.0); MONO # 0.6 10^3/uL (0.0-0.8); MONO % 5.4 % (2.0-8.0); NEUTROPHILS # 8.8 10^3/uL (1.5-8.5); NEUTROPHILS % 82.4 % (36.0-66.0); PLATELET COUNT, AUTOMATED 225 10^3/uL (150-450); RED BLOOD COUNT 3.37 10^6/uL (4.00-5.40); WHITE BLOOD COUNT 10.6 10^3/uL (4.0-10.0)
[2020-04-24 06:06] LABS: ABG HCO3 24.7 MEQ/L (22.0-26.0); ABG O2 SATURATION 96.3 % (95.0-99.0); ABG PARTIAL PRESSURE CO2 40.3 mmHg (35.0-45.0); ABG PARTIAL PRESSURE O2 81.6 mmHg (75.0-100.0); ABG STANDARD HCO3 24.5 MEQ/L (22.0-26.0); ABG TOTAL CO2 25.9 MEQ/L (23.0-31.0); ABG pH (ARTERIAL) 7.405 UNITS (7.350-7.450)
[2020-04-24 06:33] LABS: ALBUMIN 1.6 GM/DL (3.2-5.2); ALT/SGPT 12 U/L (12-78); BILIRUBIN,TOTAL 0.2 MG/DL (0.2-1.0); BLOOD UREA NITROGEN 6 MG/DL (7-18); CALCIUM LEVEL 7.7 MG/DL (8.8-10.2); CARBON DIOXIDE LEVEL 29 MEQ/L (21-32); CHLORIDE LEVEL 107 MEQ/L (98-107); CREATININE FOR GFR 0.27 MG/DL (0.55-1.30); GLOMERULAR FILTRATION RATE > 60.0 (>39); GLUCOSE, FASTING 122 MG/DL (70-100); MAGNESIUM LEVEL 1.9 MG/DL (1.8-2.4); POTASSIUM SERUM 4.3 MEQ/L (3.5-5.1); SODIUM LEVEL 141 MEQ/L (136-145); TOTAL PROTEIN 5.1 GM/DL (6.4-8.2)
[2020-04-24] MEDS: NEUTRA-PHOS 1.5 GM PACKET PO SCH ×3 (08:02→21:09)
[2020-04-24] MEDS: CHLORHEXIDINE GLUCONATE 0.12 % 15ML UDC (PERIDEX ORAL RINSE) MT SCH ×2 (08:02→21:09)
[2020-04-24] MEDS: KCL 20MEQ IN D5/0.45NS 1000ML 1,000 ML IV SCH (08:02)
[2020-04-24] MEDS: NYSTATIN 100,000 UNITS/GM TOPICAL PWD 15 GM TOP SCH ×2 (08:03→21:11)
--- NOTE | 2020-04-24 08:03 | REP ---
INDICATION: resp failure. COMPARISON: Comparison chest x-ray April 23, 2020. TECHNIQUE: Six. FINDINGS: Endotracheal tube remains in good position. The patient is rotated somewhat to the left for the current exposure. A left-sided PICC line is seen in place. This terminates in the midline. Increased density in the left base obscures the diaphragm and descending aorta is suggesting left pleural effusion unchanged. No new infiltrate.. IMPRESSION: No new infiltrate. Small left pleural effusion. Endotracheal and central venous line again noted.. <Electronically signed by Patrick Lao > 04/24/20 0800
[2020-04-24] MEDS: IPRATROPIUM 0.5MG/ALBUTEROL 2.5MG INH SOL UD 3ML (DUONEB) NEB SCH ×4 (08:06→19:48)
[2020-04-24] MEDS: ACETAMINOPHEN TAB 650MG DOSE (2X325MG) PO PRN (09:43)
[2020-04-24] MEDS: PANTOPRAZOLE 40MG VIAL (C9113 PER 1) IV SCH (09:43)
--- NOTE | 2020-04-24 09:56 | IPNPDOC ---
Text Note Date of Service The patient was seen on 04/24/20. NOTE Subjective: Patient was seen and examined this morning at bedside in the ICU. She was anxious overnight and was given a dose of Versed and this morning she is very sleepy but without complaints. She is here awaiting trach placement early next week. Objective: Constitutional: Sleepy, not in any apparent distress ENT: Sclera are clear Respiratory: intubated comfortable able to answer questions by writing things down. Heart: RRR S1 and S2 are normal, no murmur Gastrointestinal: Abdomen is soft, non distended. PEG tube in place with tube feeding running. Musculoskeletal: No peripheral edema Mental Status: A&O x3, normal affect Skin: Warm, dry Assessment/plan: 74-year-old female admitted with dysphagia and respiratory failure suspected to be due to underlying neurologic neuromuscular disease such as ALS, patient needed to be intubated due to her disease process and failed extubation attempt on 04/21/2020. The plan is for long-term trach placement. PEG tube was placed for feeding. #Respiratory failure: Presumed 2/2 underlying motor neuron disease such as ALS. She was evaluated by neurology Dr Liu. Failed extubation attempt on 04/21/2020 and was reintubated. Plan is for long-term trach placement. Dr Rosado consulted - likely early next week off of eliquis # Dysphagia: this is from her motor neuron disease. PEG tube placed by Dr. Lopez 04/20/2020. Currently getting tube feeds through PEG. # Possible aspiration pneumonia: Patient was treated with Zosyn IV. Completed treatment. This was likely due to her underlying dysphagia.There is no new infiltrate seen on her chest x-ray although she did have a low-grade fever 100.4 04/23/2020 which we will continue to monitor. 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 Patient can have a workup completed with neurology including EMG which can be done as an outpatient per Dr. Liu. # History of DVT: Hold eliquis until trach displaced resume after. # Sacral decubitus ulcer: Wound care team was consulted. Recommend follow-up with PCP. # DVT prophylaxis: Heparin. Oldest son Gustavo Paul: [phone], [phone] A [facility] Bianca VERMA, I+O VS, Bianca, I+O Laboratory Tests 04/24/20 05:22 Vital Signs Date Time Temp Pulse Resp B/P (MAP) Pulse Ox O2 Delivery O2 Flow Rate FiO2 04/24/20 08:07 95 Ventilator 21 04/24/20 08:07 90 22 04/24/20 08:00 97.4 119/56 (77) 04/21/20 10:35 10.0 I&O- Last 24 Hours up to 6 AM 04/24/20 06:00 Intake Total 4190 ml Output Total 2705 ml Balance 1485 ml FRANCESCO RASHID MD Apr 24, 2020 08:36
--- NOTE | 2020-04-24 10:43 | CCN ---
CRITICAL CARE NOTE DATE: 04/24/2020 SUBJECTIVE: Ms. Bledsoe remains on mechanical ventilation awaiting tracheostomy. Currently on SIMV volume control, tidal volume 400, rate of 10, PEEP of 5 with a pressure support of 15. She is doing well mostly breathing on her own with a respiratory rate of approximately 20 to 24. She has had issues with anxiety and does receive p.r.n. benzodiazepine therapy. She also had an event of mucous plugging last evening, which resolved with suctioning. Oxygen saturations are 96% on equivalent of room air 0.21 FiO2. She offers no complaints other than her legs feeling numb and that she is not able to move them. She has no pain. No GI upset. No increased shortness of breath or chest discomfort. She is easily arousable. OBJECTIVE: VITAL SIGNS: Temperature 97.4, pulse 90, respiratory rate 24 with a blood pressure of 119/56 with a MAP of 77, oxygen saturations 96% on FiO2 of 0.21. GENERAL: As mentioned above. HEENT: Sclerae clear, anicteric. Pupils equal, round, and reactive to light. Mucous membranes are moist without lesions. Tongue is midline. NECK: Supple. No tracheal deviation or mass. LYMPH: Without cervical, supraclavicular, or axillary adenopathy. PULMONARY: Clear to auscultation without rales, rhonchi, or wheezes. Few coarse breath sounds at the bases and otherwise no abnormalities. No prolongation in expiratory phase. No dullness to percussion. ABDOMEN: Soft, nontender, and nondistended. No discernable hepatosplenomegaly. No mass or lesion. No surrounding erythema or exudate around the G-tube. EXTREMITIES: No cyanosis or clubbing. Minimal doughy edema of the arms and feet. SKIN: Pale without rash, jaundice, or bruising. Some excoriation of the buttocks area. No significant open lesions. LABORATORY DATA: Evaluation shows a white blood cell count of 10.6, hemoglobin 9.4, platelets of 225,000. Sodium is 141, potassium is 4.3, chloride is 107, bicarb of 29, BUN of 6, creatinine of 0.27, albumin of 1.6. Arterial blood gas shows a pH of 7.41, pCO2 of 40, PaO2 of 82. IMAGING DATA: Chest x-ray shows a small amount of subdiaphragmatic air on the right. No other new abnormalities. Endotracheal tube is in good position; slightly deep, but the patient has significant head flexion. IMPRESSION: 1. Acute on chronic respiratory failure. The patient is now vent-dependent requires mechanical ventilation correction. Once tracheostomy is placed, will attempt pressure support only and trach trials. My suspicion is she will require mechanical ventilation 24 hours a day. She would like to be at home on mechanical ventilation. She still has the ability to communicate with writing as she still has use of her left arm. She has expressed that she wants everything done including tracheostomy. We will honor her wishes and continue to support her through this. Tube feeds are at goal for nutrition. She has deep vein thrombosis (DVT) prophylaxis in the form of heparin as her Eliquis is on hold for her upcoming surgery. This can be resumed after tracheostomy has been performed when surgically appropriate. 2. Gastrointestinal (GI) prophylaxis. This can actually be discontinued as long as the patient has no prior history of ulcer formation.
[2020-04-25] VITALS (20 sets, daily range): BP systolic 97–122; BP diastolic 46–82; O2SAT 96
[2020-04-25] MEDS: KCL 20MEQ IN D5/0.45NS 1000ML 1,000 ML IV SCH (04:31)
[2020-04-25 04:51] LABS: BASO % 0.3 % (0.0-1.0); EOS # 0.3 10^3/uL (0.0-0.5); EOS % 2.4 % (0.0-3.0); HEMATOCRIT 29.9 % (36.0-47.0); HEMOGLOBIN 9.4 g/dl (12.0-15.5); LYMPH # 1.1 10^3/uL (1.5-5.0); LYMPH % 10.4 % (24.0-44.0); MEAN CORPUSCULAR HEMOGLOBIN 27.9 pg (27.0-33.0); MEAN CORPUSCULAR HGB CONC 31.4 g/dl (32.0-36.5); MEAN CORPUSCULAR VOLUME 88.7 fl (80.0-96.0); MONO # 0.5 10^3/uL (0.0-0.8); NEUTROPHILS # 8.3 10^3/uL (1.5-8.5); NEUTROPHILS % 81.4 % (36.0-66.0); PLATELET COUNT, AUTOMATED 192 10^3/uL (150-450); RED BLOOD COUNT 3.37 10^6/uL (4.00-5.40); WHITE BLOOD COUNT 10.2 10^3/uL (4.0-10.0)
[2020-04-25] MEDS: HEPARIN SOD (PORCINE) 5000UNITS/ML 1ML VIAL/SYRINGE SQ SCH ×3 (05:07→21:30)
[2020-04-25] MEDS: SODIUM CHLORIDE 0.9% INJ 10 ML SYR IV SCH ×2 (05:07→17:19)
[2020-04-25 05:20] LABS: ALBUMIN 1.5 GM/DL (3.2-5.2); ALT/SGPT 11 U/L (12-78); BILIRUBIN,TOTAL 0.2 MG/DL (0.2-1.0); BLOOD UREA NITROGEN 9 MG/DL (7-18); CARBON DIOXIDE LEVEL 29 MEQ/L (21-32); CHLORIDE LEVEL 106 MEQ/L (98-107); CREATININE FOR GFR 0.36 MG/DL (0.55-1.30); GLOMERULAR FILTRATION RATE > 60.0 (>39); GLUCOSE, FASTING 88 MG/DL (70-100); MAGNESIUM LEVEL 1.9 MG/DL (1.8-2.4); POTASSIUM SERUM 4.6 MEQ/L (3.5-5.1); SODIUM LEVEL 141 MEQ/L (136-145)
[2020-04-25 06:01] LABS: ABG BASE EXCESS 3.1 (-2.0-2.0); ABG HCO3 26.6 MEQ/L (22.0-26.0); ABG O2 SATURATION 97.6 % (95.0-99.0); ABG PARTIAL PRESSURE CO2 36.2 mmHg (35.0-45.0); ABG PARTIAL PRESSURE O2 90.6 mmHg (75.0-100.0); ABG STANDARD HCO3 27.3 MEQ/L (22.0-26.0); ABG TOTAL CO2 27.7 MEQ/L (23.0-31.0); ABG pH (ARTERIAL) 7.484 UNITS (7.350-7.450)
[2020-04-25] MEDS: IPRATROPIUM 0.5MG/ALBUTEROL 2.5MG INH SOL UD 3ML (DUONEB) NEB SCH ×4 (07:25→20:42)
--- NOTE | 2020-04-25 07:56 | REP ---
INDICATION: resp failure. COMPARISON: Comparison chest x-ray 24 April 2020. TECHNIQUE: Portable upright AP chest radiograph. FINDINGS: Endotracheal tube is seen in good position at the level of the transverse aorta. A left subclavian line terminates in the midline. EKG monitoring electrodes are seen. There is improved visualization of the left hemidiaphragm suggesting and decrease in left pleural fluid and or lower lobe atelectasis. There is slight blunting of the right lateral pleural angle today. No new infiltrate.. IMPRESSION: No new infiltrates seen. Improved visualization of the left hemidiaphragm.. <Electronically signed by Patrick Lao > 04/25/20 [id number]
[2020-04-25] MEDS: NEUTRA-PHOS 1.5 GM PACKET PO SCH ×3 (09:00→21:29)
[2020-04-25] MEDS: PANTOPRAZOLE 40MG VIAL (C9113 PER 1) IV SCH (09:00)
[2020-04-25] MEDS: CHLORHEXIDINE GLUCONATE 0.12 % 15ML UDC (PERIDEX ORAL RINSE) MT SCH ×2 (09:01→21:30)
[2020-04-25] MEDS: NYSTATIN 100,000 UNITS/GM TOPICAL PWD 15 GM TOP SCH ×2 (09:01→21:29)
--- NOTE | 2020-04-25 11:18 | IPNPDOC ---
Text Note Date of Service The patient was seen on 04/25/20. NOTE Subjective: Patient was seen and examined this morning at bedside in the ICU. Not much has changed today she feels well and has no complaints she is awaiting trach placement either Saturday or this week. She feels less anxious today. She denies being in any pain. There is no acute overnight events reported to me. Objective: Constitutional: awake and alert today, not in any apparent distress ENT: Sclera are clear Respiratory: intubated comfortable able to answer questions by writing things down. Heart: RRR S1 and S2 are normal, no murmur Gastrointestinal: Abdomen is soft, non distended. PEG tube in place with tube feeding running. Musculoskeletal: No peripheral edema Mental Status: A&O x3, normal affect Skin: Warm, dry Assessment/plan: 74-year-old female admitted with dysphagia and respiratory failure suspected to be due to underlying neurologic neuromuscular disease such as ALS, patient needed to be intubated due to her disease process and failed extubation attempt on 04/21/2020. The plan is for long-term trach placement. PEG tube was placed for feeding. #Respiratory failure: Presumed 2/2 underlying motor neuron disease such as ALS. She was evaluated by neurology Dr Liu. Failed extubation attempt on 04/21/2020 and was reintubated. Plan is for long-term trach placement. Dr Rosado consulted - likely Saturday or . # Dysphagia: this is from her motor neuron disease. PEG tube placed by Dr. Lopez 04/20/2020. Currently getting tube feeds through PEG. # Possible aspiration pneumonia: Patient was treated with Zosyn IV. Completed treatment. This was likely due to her underlying dysphagia.There is no new infiltrate seen on her chest x-ray although she did have a low-grade fever 100.4 04/23/2020 which we will continue to monitor. 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 Patient can have a workup completed with neurology including EMG which can be done as an outpatient per Dr. Liu. # History of DVT: Hold eliquis until trach displaced resume after. # Sacral decubitus ulcer: Wound care team was consulted. Recommend follow-up with PCP. # DVT prophylaxis: Heparin. Oldest son Gustavo Paul: [phone], [phone] A Cyn[facility] Hospitalist Bianca VERMA, I+O VSBianca I+O Laboratory Tests 04/25/20 04:19 Vital Signs Date Time Temp Pulse Resp B/P (MAP) Pulse Ox O2 Delivery O2 Flow Rate FiO2 04/25/20 10:00 92 106/46 (66) 89 Ventilator 21 04/25/20 08:00 96.4 22 04/21/20 10:35 10.0 I&O- Last 24 Hours up to 6 AM 04/25/20 05:59 Intake Total 3105 ml Output Total 1765 ml Balance 1340 ml FRANCESCO RASHID MD Apr 25, 2020 11:18
[2020-04-25] MEDS: ALPRAZolam 0.5 MG TAB PO PRN (21:30)
[2020-04-26] VITALS (24 sets, daily range): BP systolic 101–146; BP diastolic 50–85; O2SAT 91–94
[2020-04-26] MEDS: SODIUM CHLORIDE 0.9% INJ 10 ML SYR IV SCH ×2 (05:25→18:05)
[2020-04-26] MEDS: HEPARIN SOD (PORCINE) 5000UNITS/ML 1ML VIAL/SYRINGE SQ SCH ×3 (05:26→22:42)
[2020-04-26 05:45] LABS: ABG BASE EXCESS 3.6 (-2.0-2.0); ABG HCO3 27.6 MEQ/L (22.0-26.0); ABG PARTIAL PRESSURE CO2 39.1 mmHg (35.0-45.0); ABG PARTIAL PRESSURE O2 78.2 mmHg (75.0-100.0); ABG STANDARD HCO3 27.7 MEQ/L (22.0-26.0); ABG TOTAL CO2 28.8 MEQ/L (23.0-31.0); ABG pH (ARTERIAL) 7.466 UNITS (7.350-7.450)
[2020-04-26] MEDS: IPRATROPIUM 0.5MG/ALBUTEROL 2.5MG INH SOL UD 3ML (DUONEB) NEB SCH ×4 (07:41→20:02)
[2020-04-26] MEDS: CHLORHEXIDINE GLUCONATE 0.12 % 15ML UDC (PERIDEX ORAL RINSE) MT SCH ×2 (08:13→20:55)
[2020-04-26] MEDS: NEUTRA-PHOS 1.5 GM PACKET PO SCH ×3 (08:13→20:54)
[2020-04-26] MEDS: NYSTATIN 100,000 UNITS/GM TOPICAL PWD 15 GM TOP SCH ×2 (08:13→20:55)
--- NOTE | 2020-04-26 08:18 | REP ---
INDICATION: resp failure COMPARISON: 04/25/2020 TECHNIQUE: Portable AP view of the chest FINDINGS: Endotracheal tube extends to the level of the emmie and warrants repositioning. Left-sided PICC line in stable position. The mediastinum and cardiac silhouette are stable and within normal limits for portable technique. Lung vargas again demonstrate left lower lobe/retrocardiac consolidation unchanged. Right lung base suggest improved aeration with decreased opacity as compared to prior exam. No new acute process identified. IMPRESSION: 1. Endotracheal tube appears to extend to the emmie and warrants repositioning. 2. Left lower lobe/retrocardiac consolidation unchanged. 3. Improved aeration to the right hemithorax and right base. <Electronically signed by Prosper Strange > 04/26/20 0851
[2020-04-26 08:28] LABS: BASO % 0.5 % (0.0-1.0); EOS # 0.3 10^3/uL (0.0-0.5); EOS % 3.1 % (0.0-3.0); HEMATOCRIT 29.7 % (36.0-47.0); HEMOGLOBIN 9.1 g/dl (12.0-15.5); LYMPH # 1.1 10^3/uL (1.5-5.0); LYMPH % 12.7 % (24.0-44.0); MEAN CORPUSCULAR HEMOGLOBIN 27.6 pg (27.0-33.0); MEAN CORPUSCULAR HGB CONC 30.6 g/dl (32.0-36.5); MONO # 0.6 10^3/uL (0.0-0.8); MONO % 6.9 % (2.0-8.0); NEUTROPHILS # 6.4 10^3/uL (1.5-8.5); NEUTROPHILS % 76.4 % (36.0-66.0); PLATELET COUNT, AUTOMATED 165 10^3/uL (150-450); WHITE BLOOD COUNT 8.4 10^3/uL (4.0-10.0)
[2020-04-26 08:53] LABS: ALBUMIN 1.4 GM/DL (3.2-5.2); ALT/SGPT 11 U/L (12-78); BILIRUBIN,TOTAL 0.1 MG/DL (0.2-1.0); BLOOD UREA NITROGEN 11 MG/DL (7-18); CALCIUM LEVEL 7.8 MG/DL (8.8-10.2); CARBON DIOXIDE LEVEL 29 MEQ/L (21-32); CHLORIDE LEVEL 107 MEQ/L (98-107); CREATININE FOR GFR 0.38 MG/DL (0.55-1.30); GLOMERULAR FILTRATION RATE > 60.0 (>39); GLUCOSE, FASTING 101 MG/DL (70-100); POTASSIUM SERUM 4.1 MEQ/L (3.5-5.1); SODIUM LEVEL 142 MEQ/L (136-145)
--- NOTE | 2020-04-26 09:50 | IPN ---
PROGRESS NOTE DATE: 04/25/2020 SUBJECTIVE: Nedra is seen in PCU. She is still on the ventilator. Tracheostomy is planned for 04/28. She is getting fed through a PEG tube. Her aspiration pneumonia has finished its course of IV antibiotics. Her anticoagulant (Eliquis) is on hold now for surgery. She has a history of DVT. Her sacral wound is being managed by the wound team. Her son, Gustavo Paul, is contact at [phone] or [phone]. OBJECTIVE: VITAL SIGNS: Afebrile. Has not had a fever since a minor elevation on 04/23. Vital signs are stable. GENERAL APPEARANCE: She is alert. She answers questions with appropriate movements, intubated, right hemiparesis. LUNGS: Clear. HEART: Regular rate and rhythm. ABDOMEN: Soft and nontender. EXTREMITIES: Moves left hand and foot to command. LABORATORY DATA: CBC unremarkable. Electrolytes unremarkable. IMPRESSION/PLAN: 1. 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 She will need long distance operator ventilatory management. Plan is for a tracheostomy on 04/28. 2. Feeding difficulties/dysphagia. Percutaneous endoscopic gastrostomy (PEG) tube is in place. 3. Aspiration pneumonia. She has finished her intravenous (IV) Zosyn. No recurrence of fever. 4. History of deep vein thrombosis (DVT). Eliquis is on hold. Resume this after tracheostomy procedure. 5. Sacral wound ulcer per wound team. 6. Upper motor neuron disease. She will need to see neurology for definitive diagnosis as an outpatient. She had labs ordered to rule out myasthenia gravis and these are all pending.
[2020-04-26 10:10] LABS: ACETYLCHOLINE RCPTOR BINDING A < 0.03 nmol/L (0.00-0.24); ACETYLCHOLINE RCPTOR BLOCK AB 14 % (0-25); ACETYLCHOLINE RCPTOR MODULATIN <12 % (0-20); STRIATIONAL ANTIBODIES Negative (Neg:<1:40)
--- NOTE | 2020-04-26 12:20 | IPN ---
PROGRESS NOTE DATE: 04/25/2020 SUBJECTIVE: Nedra was seen and examined this morning at bedside by the pulmonary critical care service. Her IV fluids in the form of half D5 with 20 mEq of potassium chloride were discontinued earlier today by the primary service. She continues to receive nutrition via her PEG tube and per nursing, there were no residuals this morning. She has had three bowel movements since change of shift this morning at 7 a.m. On speaking with Nedra, she responds by written response, stating that her breathing is okay. She does not feel short of breath nor does she feel she is working harder to breathe. She does report right upper extremity pain as well as pain at the base of her lower back around her sacrum where her ulcer is and she benefits from having cool air applied via fan to that area. She does continue to be on mechanical ventilation in the form of SIMV plus pressure support. She is overbreathing the ventilator with respirations in the mid to upper 20s with a ventilator respiratory rate setting of 10. She remains with tidal volume set at 400, a PEEP of 5 with pressor support of 15. Her oxygen saturations were at 96% on essentially room air with FiO2 of 21%. She remains easily arousable and did require some suctioning for oral secretions at time of our exam. OBJECTIVE: Vital signs: Heart rate of 75, temperature of 98.7, blood pressure of 122/56, respiratory rate ranging from 23 to 28 and saturating at 96% on a ventilator with 21% FiO2. General: Elderly female lying in bed with mechanical ventilation. She is easily arousable and responds appropriately via written response to all questions and commands. HEENT: Normocephalic, atraumatic. Noninjected, anicteric sclera. There is some mild conjunctival pallor. Pupils are equal, round and reactive to light and accommodation. Mucous membranes are moist. Endotracheal tube is in place. Neck: Supple. Trachea is midline. No lymphadenopathy appreciated. Cardiovascular: Regular rate, regular rhythm. Normal S-1, S-2. No murmurs or rubs are appreciated. There is a mildly delayed capillary refill between 2-3 seconds. Pulmonary: Clear to auscultation bilaterally with symmetric chest expansion. There were some appreciated coarse breath sounds particularly at the left lower lung base. She remains on mechanical ventilation with SIMV plus pressor support as discussed above. Abdomen: Soft, nondistended. She did have moderate tenderness to palpation of right upper and lower quadrants. Hyperactive bowel sounds. There is a PEG tube present and there is no surrounding erythema, induration or discharge around G-tube insertion site. Her tube feedings are running at 60 mL per hour. Extremities: There is a PICC line in place in the left upper extremity. She does have bilateral 1+ pitting pedal edema, left foot greater than right. She is wearing pressure ulcer protective boots on both feet. There is some moderate swelling of her bilateral upper extremities, a little bit more pronounced on the right with some scattered bruising. Skin: There is significant excoriation around the sacrum and anus. There appears to be nonbleeding stage I/II pressure ulcer at the superior aspect of the gluteal cleft. Otherwise, her skin is warm, dry and intact. Genitourinary: The patient has a Simmons catheter in place and there is approximately 175 mL of light yellow-colored urine this morning upon review. LABORATORIES: WBC 10.2, hemoglobin 9.4, platelet count of 192,000. Sodium of 141, potassium of 4.6, bicarb of 29, BUN of 9, creatinine of 0.36, calculated GFR greater than 60%, total protein of 5, albumin of 1.5, magnesium of 1.9. ABG this morning had results of pH 7.48, pCO2 36.2, pO2 of 90 and this was on the aforementioned ventilator settings. IMAGING: Portable chest x-ray this morning appeared to show some slight improvement in left pleural effusion. Otherwise, it was relatively unchanged from prior day's studies. The ET tube again was in good position. IMPRESSION: 1. [id number] respiratory failure. This is as a result of the neurologic ventilatory failure due to her suspected neuromuscular disease. She is now ventilator dependent, requiring long-term mechanical ventilation. A consultation has been placed to ENT service to perform a tracheostomy. The patient has maintained that she wants the tracheostomy and at this point, her home Eliquis has been held and she is receiving heparin for anticoagulation in preparation for the tracheostomy later this week. Also, there has been a consultation placed with director of social media marketing to being the process of getting home mechanical ventilation arranged. Tube feeds appear to be going well. We did switch her ventilatory settings from the SIMV/pressor support to pressor support only with settings of a peak pressure of 20, pressor support of 15, a PEEP of 5 and an FiO2 of 21%. Soon after the switch to pressor support, her saturations improved slightly. We will continue to monitor how she breathes while on this new setting. At this point, the main reason for order picker/pulmonary service is the management of her ventilator. 2. GI prophylaxis: Upon review of patient's record, she does not appear to have a history of ulcer and at this point now that she is tolerating consistent tube feedings and is stable from an intensive care perspective (i.e. afebrile, no sepsis, hemodynamically stable, and initiating no breaths on the ventilator), we have decided to discontinue her Protonix. 3. Suspected neuromuscular disease. The patient had been following with neurology in [place] per prior documentation. The patient has been seen and examined on this admission by the neurology service and formal testing as outpatient to confirm diagnosis is still pending. I, Rickie Avila, agree with he assessment and plan as outlined by the resident after I conducted my independent history and physical. There is a possibility that the patient may only require tracheostomy and at least not initially mechanical ventilation. Will perform trach trials, once tracheostomy has been completed. She will require follow up in the office if she remains in the area. AMBROCIO
[2020-04-26] MEDS: MIDAZOLAM INJ 2MG/2ML VIAL (J2250 PER 1MG) IV PRN (12:35)
--- NOTE | 2020-04-26 13:56 | IPN ---
CRITICAL CARE PULMONARY PROGRESS NOTE DATE: 04/26/2020 SUBJECTIVE: Nedra was seen and examined this morning by the Pulmonary/Critical Care Service. Per report from the overnight, she had no significant events and was tolerating her ventilatory pressure support settings with no issues. There were some reported residuals on her tube feeds overnight but none this morning. We confirmed with the OR this morning that Nedra is scheduled for a April 28 tracheostomy at 7:30 am. We also did speak at length yesterday with her daughter and health care proxy, Tammie Ribeiro answering some questions and will also contact her again today to update her on the definitive time and date of the tracheostomy. On speaking with Nedra herself this morning, she denies having to work harder to breathe or feeling short of breath. She did report some continual right upper extremity discomfort and pain, as well as some pain around the insertion site of the PEG tube and over her lower back/sacral area where her pressure ulcer is. OBJECTIVE: VITAL SIGNS: Temperature 97.6, heart rate is 85, respiratory rate is 17, blood pressure is 119/59. SpO2 is 94%, currently on mechanical ventilation in the form of pressure support with an FIO2 of 21%, PEEP of 5 and pressure support of 15. GENERAL: Elderly female lying in bed on mechanical ventilation. Responding via written word, appropriately to questions and commands. She is alert and oriented x3 and maintains good eye contact throughout exam. HEENT: Normocephalic, atraumatic. Non-injected anicteric sclera. Mild conjunctiva pallor. Pupils are round, equal and reactive to light and accommodation. There is an endotracheal tube in place. Her lips appear somewhat dry as does her tongue. NECK: Supple, somewhat rotated. No lymphadenopathy appreciated. CARDIOVASCULAR: Borderline tachycardiac rate with regular rhythm, normal S1, S2. No murmurs or rubs are appreciated. 2+ radial pulses palpated bilaterally. RESPIRATORY: There are some bilateral rhonchorous breath sounds appreciated. There is symmetric chest expansion. She is on the mechanical ventilation settings as listed above. No other significant crackles or wheezes are appreciated. No significant accessory muscle use. ABDOMEN: There is a G-tube/feeding tube present in the right upper middle quadrant. There is no surrounding erythema, induration or warmth from the insertion site. There is a little bit of dried blood around the site, that is it. She does have pain to the left lower quadrant as well as some slight discomfort around the PEG-tube insertion site. She had some hyperactive bowel sounds throughout, some are higher pitched. There is no rigidity appreciated. EXTREMITIES: She continues to have some edema of her right upper extremity unchanged from prior to exam, approximately 1+ pitting edema. She also has bilateral lower extremity swelling worse on the left as well as 1+ pedal edema of the left foot. She is wearing the ulcer protective heel guards at time of exam. There is a PICC line present in her left upper extremity. NEUROLOGIC: She is awake, she is alert and oriented x3 with responses either via written word or motioning with her head and left upper extremity. She has maintained good eye contact throughout the exam and is easily arousable. She is unable to move her right upper extremity on command which is unchanged from previous exams. SKIN: On examination of her sacral ulcer, does not appear to be changed from yesterday. There is an approximately 1 inch long Stage I, borderline Stage II pressure ulcer visible with some excoriation of the surrounding skin and also perianally. GENITOURINARY: There is a Simmons catheter in place with approximately 150 ml of light-colored urine visualized. LABORATORY DATA: WBC 8.4, hemoglobin 9.1, platelet count 165,000, sodium 142, potassium 4.1, bicarbonate 29, chloride 107, BUN 11, creatinine 0.38 with a calculated GFR of greater than 60% and serum glucose of 101. ABG this morning showed results: pH of 7.466, pCO2 of 39.1, pO2 78.2. IMAGING: There was a portable chest x-ray done this morning showing significant rotation to patient's left. There appears to be some improved aeration at the right lung base compared to yesterday's study. IMPRESSION AND PLAN: 1. Respiratory failure due to a neurologic ventilatory cause secondary to suspected neuromuscular disease. Nedra has tolerated 24 hours of pressure support settings on mechanical ventilation. She continues to be ventilator dependent. As discussed above, there is a planned tracheostomy for two days time on , April 28. We will call the patient's daughter and health care proxy, Tammie Ribeiro, today to update her on this definitive time for the tracheostomy. She continues to receive DVT prophylaxis in the form of Heparin after her home Eliquis was stopped in preparation of the trach. There was some question about possible aspiration pneumonia and she is status post 10 days of antibiotic treatment with Zosyn. She does have a very mild respiratory alkalosis on ABG this morning. Other than that, she is maintaining adequate saturations on the pressure support. 2. Nutrition: She continues to receive feedings through her PEG-tube at 60 ml/hr. PEG tube was placed six days ago on April 20. I, Rickie Avila, Agree with the history and physical as outlined above after my independent review and bedside exam MTDD
[2020-04-26] MEDS: ALPRAZolam 0.5 MG TAB PO PRN ×2 (16:38→20:54)
[2020-04-26] MEDS: ACETAMINOPHEN TAB 650MG DOSE (2X325MG) PO PRN ×2 (16:38→20:54)
[2020-04-27] VITALS (23 sets, daily range): BP systolic 90–132; BP diastolic 45–60
[2020-04-27] MEDS: ALPRAZolam 0.5 MG TAB PO PRN ×2 (04:00→20:48)
[2020-04-27] MEDS: ACETAMINOPHEN TAB 650MG DOSE (2X325MG) PO PRN ×2 (04:00→20:47)
[2020-04-27 05:36] LABS: HEMATOCRIT 28.5 % (36.0-47.0); HEMOGLOBIN 8.9 g/dl (12.0-15.5); MEAN CORPUSCULAR HEMOGLOBIN 28.3 pg (27.0-33.0); MEAN CORPUSCULAR HGB CONC 31.2 g/dl (32.0-36.5); MEAN CORPUSCULAR VOLUME 90.5 fl (80.0-96.0); PLATELET COUNT, AUTOMATED 179 10^3/uL (150-450); RED BLOOD COUNT 3.15 10^6/uL (4.00-5.40); WHITE BLOOD COUNT 6.8 10^3/uL (4.0-10.0)
[2020-04-27] MEDS: SODIUM CHLORIDE 0.9% INJ 10 ML SYR IV SCH ×2 (05:38→18:55)
[2020-04-27] MEDS: HEPARIN SOD (PORCINE) 5000UNITS/ML 1ML VIAL/SYRINGE SQ SCH ×3 (06:00→21:00)
[2020-04-27 06:10] LABS: ABG BASE EXCESS 2.4 (-2.0-2.0); ABG HCO3 25.8 MEQ/L (22.0-26.0); ABG O2 SATURATION 98.1 % (95.0-99.0); ABG PARTIAL PRESSURE CO2 34.9 mmHg (35.0-45.0); ABG PARTIAL PRESSURE O2 107.4 mmHg (75.0-100.0); ABG STANDARD HCO3 26.7 MEQ/L (22.0-26.0); ABG TOTAL CO2 26.8 MEQ/L (23.0-31.0); ABG pH (ARTERIAL) 7.486 UNITS (7.350-7.450)
[2020-04-27 06:14] LABS: ALBUMIN 1.4 GM/DL (3.2-5.2); ALT/SGPT 9 U/L (12-78); BILIRUBIN,TOTAL 0.3 MG/DL (0.2-1.0); BLOOD UREA NITROGEN 14 MG/DL (7-18); CALCIUM LEVEL 7.8 MG/DL (8.8-10.2); CARBON DIOXIDE LEVEL 30 MEQ/L (21-32); CHLORIDE LEVEL 107 MEQ/L (98-107); CREATININE FOR GFR 0.38 MG/DL (0.55-1.30); GLOMERULAR FILTRATION RATE > 60.0 (>39); GLUCOSE, FASTING 72 MG/DL (70-100); POTASSIUM SERUM 4.3 MEQ/L (3.5-5.1); SODIUM LEVEL 143 MEQ/L (136-145)
[2020-04-27] MEDS: IPRATROPIUM 0.5MG/ALBUTEROL 2.5MG INH SOL UD 3ML (DUONEB) NEB SCH ×4 (07:20→19:41)
--- NOTE | 2020-04-27 09:53 | IPN ---
PROGRESS NOTE DATE: 04/27/2020 SUBJECTIVE: Nedra seen in PCU, no real change in her status today, waiting for tracheostomy tomorrow. PHYSICAL EXAMINATION: VITAL SIGNS: Blood pressure 107/51. GENERAL: Alert, follows commands. LUNGS: Good air movement. HEART: Regular rhythm. ABDOMEN: Soft, nontender. EXTREMITIES: Right hemiparesis. Her decubitus looks marginally improved from admission. LABORATORY DATA: CBC unremarkable. Electrolytes unremarkable. PLAN: Patient is medically stable for tracheostomy tomorrow. Appreciate the input of pulmonology in the ventilator management. After the tracheostomy is done and she is stable postoperatively, we will need to work on a discharge plan. The patient would like to go home, but would obviously need somebody there that can provide 24/7 care to a home ventilator patient.
--- NOTE | 2020-04-27 10:27 | CR ---
CONSULTATION DATE: 04/26/2020 HISTORY: The patient was seen with a history of a neurologic disorder. The patient had difficulty with breathing so the patient was intubated. It appears that the patient will not be extubated without difficulty so the patient is for consideration of a tracheotomy. Otherwise, the patient has no associated problems. The patient is on Eliquis. PHYSICAL EXAMINATION: Examination shows her neck looks good. IMPRESSION: The patient has an intubation for respiratory care and will need a tracheotomy. PLAN: I have booked her for tracheotomy in the operating room under general anesthesia at a later day.
[2020-04-27] MEDS: NYSTATIN 100,000 UNITS/GM TOPICAL PWD 15 GM TOP SCH ×2 (10:45→20:47)
[2020-04-27] MEDS: CHLORHEXIDINE GLUCONATE 0.12 % 15ML UDC (PERIDEX ORAL RINSE) MT SCH ×2 (10:45→20:47)
[2020-04-27] MEDS: NEUTRA-PHOS 1.5 GM PACKET PO SCH ×3 (10:45→20:47)
[2020-04-27] MEDS: SODIUM CHLORIDE 0.9% INJ 10 ML SYR IV PRN (18:55)
[2020-04-28] VITALS (24 sets, daily range): BP systolic 93–152; BP diastolic 49–66
[2020-04-28] MEDS: SODIUM CHLORIDE 0.9% INJ 10 ML SYR IV SCH ×2 (05:09→18:00)
[2020-04-28 05:52] LABS: ABG BASE EXCESS 3.6 (-2.0-2.0); ABG HCO3 27.4 MEQ/L (22.0-26.0); ABG O2 SATURATION 97.8 % (95.0-99.0); ABG PARTIAL PRESSURE CO2 38.5 mmHg (35.0-45.0); ABG STANDARD HCO3 27.7 MEQ/L (22.0-26.0); ABG TOTAL CO2 28.6 MEQ/L (23.0-31.0)
[2020-04-28 06:05] LABS: HEMATOCRIT 31.2 % (36.0-47.0); HEMOGLOBIN 9.4 g/dl (12.0-15.5); MEAN CORPUSCULAR HEMOGLOBIN 27.2 pg (27.0-33.0); MEAN CORPUSCULAR HGB CONC 30.1 g/dl (32.0-36.5); MEAN CORPUSCULAR VOLUME 90.4 fl (80.0-96.0); PLATELET COUNT, AUTOMATED 221 10^3/uL (150-450); RED BLOOD COUNT 3.45 10^6/uL (4.00-5.40); WHITE BLOOD COUNT 8.9 10^3/uL (4.0-10.0)
[2020-04-28 06:47] LABS: ALBUMIN 1.6 GM/DL (3.2-5.2); ALT/SGPT 12 U/L (12-78); BILIRUBIN,TOTAL 0.1 MG/DL (0.2-1.0); BLOOD UREA NITROGEN 14 MG/DL (7-18); CALCIUM LEVEL 7.9 MG/DL (8.8-10.2); CARBON DIOXIDE LEVEL 30 MEQ/L (21-32); CHLORIDE LEVEL 108 MEQ/L (98-107); CREATININE FOR GFR 0.38 MG/DL (0.55-1.30); GLOMERULAR FILTRATION RATE > 60.0 (>39); GLUCOSE, FASTING 104 MG/DL (70-100); POTASSIUM SERUM 4.3 MEQ/L (3.5-5.1); SODIUM LEVEL 143 MEQ/L (136-145); TOTAL PROTEIN 5.6 GM/DL (6.4-8.2)
[2020-04-28] MEDS ORDERED: LIDOCAINE W/EPINEPHRINE 1% 20ML VIAL As Ordered ONE (07:10)
[2020-04-28] MEDS ORDERED: propofoL 200 MG/20 ML VIAL As Ordered ONE ×2 (07:17→07:20)
[2020-04-28] MEDS ORDERED: ROCURONIUM BROMIDE 50 MG/5 ML VIAL As Ordered ONE (07:17)
[2020-04-28] MEDS ORDERED: ONDANSETRON 4MG/2ML VIAL As Ordered ONE (07:17)
[2020-04-28] MEDS ORDERED: LIDOCAINE 2% 100MG/5ML SDV (FOR ANES.) As Ordered ONE (07:17)
[2020-04-28] MEDS ORDERED: fentaNYL 100 MCG/2 ML INJECTION (J3010) As Ordered ONE (07:17)
[2020-04-28] MEDS ORDERED: METOCLOPRAMIDE INJ 10MG/2ML VIAL (J2765 PER 1) As Ordered ONE (07:17)
[2020-04-28] MEDS ORDERED: MIDAZOLAM INJ 2MG/2ML VIAL (J2250 PER 1MG) As Ordered ONE (07:17)
[2020-04-28] MEDS: IPRATROPIUM 0.5MG/ALBUTEROL 2.5MG INH SOL UD 3ML (DUONEB) NEB SCH ×4 (07:54→19:51)
--- NOTE | 2020-04-28 08:10 | REP ---
INDICATION: vent dep resp failure COMPARISON: 04/26/2020 TECHNIQUE: Portable AP view of the chest FINDINGS: The endotracheal tube is roughly 1 cm above the emmie. Left PICC line with tip in the SVC stable. Cardiac silhouette is within normal limits. Left lower lobe opacities suggesting consolidation and effusion as well as right basilar airspace disease appear increased from prior examination and should be correlated clinically. No pneumothorax. IMPRESSION: 1. Endotracheal tube is roughly 1 cm above the emmie. 2. Bibasilar airspace disease and left lower lobe/retrocardiac consolidation with possible small effusion appears slightly increased from prior examination. <Electronically signed by Prosper Strange > 04/28/20 [id number]
--- NOTE | 2020-04-28 08:17 | IPN ---
PROGRESS NOTE DATE: 04/28/2020 SUBJECTIVE: Nedra is going for tracheostomy today. No change in clinical status from yesterday. PHYSICAL EXAMINATION: VITAL SIGNS: Afebrile. Vital signs are stable. O2 saturation 94%. GENERAL APPEARANCE: She is alert and follows commands. Right hemiparesis as before, intubated. LUNGS: Clear. HEART: Regular rate and rhythm. ABDOMEN: Soft, nontender. EXTREMITIES: No peripheral edema. LABORATORY DATA: White count 8.9, hemoglobin 9.4, platelets 221,000, sodium 143, potassium 4.3, BUN 14, creatinine 0.3, glucose 104. IMPRESSION: 1. Medically stable for tracheostomy today, appreciate the assistance of ventilation equipment tender as well as ENT group. Her Eliquis has been on hold since 04/21/2020.
[2020-04-28] MEDS: NYSTATIN 100,000 UNITS/GM TOPICAL PWD 15 GM TOP SCH ×2 (09:34→21:10)
[2020-04-28] MEDS: CHLORHEXIDINE GLUCONATE 0.12 % 15ML UDC (PERIDEX ORAL RINSE) MT SCH ×2 (09:34→21:09)
[2020-04-28] MEDS: NEUTRA-PHOS 1.5 GM PACKET PO SCH ×3 (09:34→21:09)
[2020-04-28] MEDS: ALPRAZolam 0.5 MG TAB PO PRN ×3 (09:36→21:10)
[2020-04-28] MEDS: ACETAMINOPHEN TAB 650MG DOSE (2X325MG) PO PRN ×3 (09:36→21:11)
[2020-04-28 09:55] LABS: ABG BASE EXCESS 5.7 (-2.0-2.0); ABG HCO3 29.9 MEQ/L (22.0-26.0); ABG O2 SATURATION 92.1 % (95.0-99.0); ABG PARTIAL PRESSURE CO2 41.7 mmHg (35.0-45.0); ABG PARTIAL PRESSURE O2 60.8 mmHg (75.0-100.0); ABG STANDARD HCO3 29.5 MEQ/L (22.0-26.0); ABG TOTAL CO2 31.2 MEQ/L (23.0-31.0); ABG pH (ARTERIAL) 7.473 UNITS (7.350-7.450)
[2020-04-28] MEDS: MIDAZOLAM INJ 2MG/2ML VIAL (J2250 PER 1MG) IV PRN (13:42)
[2020-04-28] MEDS: HEPARIN SOD (PORCINE) 5000UNITS/ML 1ML VIAL/SYRINGE SQ SCH ×2 (13:43→21:10)
[2020-04-29] VITALS (28 sets, daily range): BP systolic 89–143; BP diastolic 47–62; O2SAT 92
[2020-04-29] MEDS: HEPARIN SOD (PORCINE) 5000UNITS/ML 1ML VIAL/SYRINGE SQ SCH (05:10)
[2020-04-29] MEDS: SODIUM CHLORIDE 0.9% INJ 10 ML SYR IV SCH ×2 (05:11→17:40)
[2020-04-29 05:42] LABS: HEMATOCRIT 30.6 % (36.0-47.0); HEMOGLOBIN 9.5 g/dl (12.0-15.5); MEAN CORPUSCULAR HEMOGLOBIN 27.9 pg (27.0-33.0); PLATELET COUNT, AUTOMATED 222 10^3/uL (150-450); WHITE BLOOD COUNT 7.6 10^3/uL (4.0-10.0)
[2020-04-29 05:45] LABS: ABG HCO3 29.5 MEQ/L (22.0-26.0); ABG O2 SATURATION 96.8 % (95.0-99.0); ABG PARTIAL PRESSURE CO2 43.1 mmHg (35.0-45.0); ABG PARTIAL PRESSURE O2 86.4 mmHg (75.0-100.0); ABG TOTAL CO2 30.8 MEQ/L (23.0-31.0); ABG pH (ARTERIAL) 7.453 UNITS (7.350-7.450)
[2020-04-29 05:54] LABS: ALBUMIN 1.6 GM/DL (3.2-5.2); ALT/SGPT 11 U/L (12-78); BILIRUBIN,TOTAL 0.2 MG/DL (0.2-1.0); BLOOD UREA NITROGEN 14 MG/DL (7-18); CALCIUM LEVEL 8.6 MG/DL (8.8-10.2); CARBON DIOXIDE LEVEL 29 MEQ/L (21-32); CHLORIDE LEVEL 106 MEQ/L (98-107); CREATININE FOR GFR 0.36 MG/DL (0.55-1.30); GLOMERULAR FILTRATION RATE > 60.0 (>39); GLUCOSE, FASTING 76 MG/DL (70-100); POTASSIUM SERUM 4.1 MEQ/L (3.5-5.1); SODIUM LEVEL 141 MEQ/L (136-145); TOTAL PROTEIN 6.3 GM/DL (6.4-8.2)
[2020-04-29] MEDS: IPRATROPIUM 0.5MG/ALBUTEROL 2.5MG INH SOL UD 3ML (DUONEB) NEB SCH ×4 (07:18→20:09)
[2020-04-29] MEDS ORDERED: ONDANSETRON 4MG/2ML VIAL IV PRN (08:45)
[2020-04-29] MEDS ORDERED: fentaNYL 100 MCG/2 ML INJECTION (J3010) IV PRN (08:45)
[2020-04-29] MEDS ORDERED: LR 1,000 ML IV SCH (08:45)
[2020-04-29] MEDS ORDERED: oxyCODONE 5MG TAB PO PRN (08:45)
[2020-04-29] MEDS: ACETAMINOPHEN TAB 650MG DOSE (2X325MG) PO PRN (08:48)
[2020-04-29] MEDS: NYSTATIN 100,000 UNITS/GM TOPICAL PWD 15 GM TOP SCH ×2 (08:48→20:38)
[2020-04-29] MEDS: NEUTRA-PHOS 1.5 GM PACKET PO SCH ×3 (08:48→20:39)
[2020-04-29] MEDS: CHLORHEXIDINE GLUCONATE 0.12 % 15ML UDC (PERIDEX ORAL RINSE) MT SCH ×2 (08:49→20:38)
--- NOTE | 2020-04-29 09:37 | IPN ---
PROGRESS NOTE DATE: 04/29/2020 SUBJECTIVE: Nedra is going for a tracheostomy today. It was not done yesterday as tube feedings were held. No change in clinical status. OBJECTIVE: Afebrile, blood pressure 130/57. Mental status unchanged. Lungs clear. Heart regular rhythm. Abdomen soft and nontender. LABORATORY DATA: CBC looks unremarkable. Electrolytes are unremarkable. ASSESSMENT: Stable for tracheostomy today.
[2020-04-29] MEDS ORDERED: fentaNYL 100 MCG/2 ML INJECTION (J3010) As Ordered ONE (10:14)
[2020-04-29] MEDS ORDERED: MIDAZOLAM INJ 2MG/2ML VIAL (J2250 PER 1MG) As Ordered ONE (10:14)
[2020-04-29] MEDS ORDERED: propofoL 200 MG/20 ML VIAL As Ordered ONE (10:15)
[2020-04-29] MEDS ORDERED: ROCURONIUM BROMIDE 50 MG/5 ML VIAL As Ordered ONE (10:15)
[2020-04-29] MEDS ORDERED: ONDANSETRON 4MG/2ML VIAL As Ordered ONE (10:15)
[2020-04-29] MEDS ORDERED: PHENYLEPHRINE 0.5% NASAL SPRAY 15 ML As Ordered ONE (10:58)
[2020-04-29] MEDS ORDERED: LIDOCAINE W/EPINEPHRINE 1% 20ML VIAL As Ordered ONE (10:58)
[2020-04-29] MEDS ORDERED: PHENYLephrine 500MCG 5ML (100MCG/ML) SYRINGE As Ordered ONE (11:57)
[2020-04-29] MEDS ORDERED: ePHEDrine SULFATE 25 MG/5 ML(5MG/ML) SYRINGE As Ordered ONE (11:57)
[2020-04-29] MEDS: MORPHINE 2 MG/ML 1ML VIAL (J2270) IV PRN ×2 (13:36→19:46)
--- NOTE | 2020-04-29 15:15 | RO ---
OPERATIVE NOTE DATE OF OPERATION: 04/29/2020 PREOPERATIVE DIAGNOSIS: Respiratory failure. POSTOPERATIVE DIAGNOSIS: Respiratory failure. OPERATIVE PROCEDURE: Tracheotomy. PROCEDURE IN DETAIL: Under general anesthesia with the patient intubated, the patient was draped in the usual manner. I infiltrated with lidocaine and epinephrine. I divided the skin and subcutaneous tissues. I dissected down to the trachea. I identified the cricoid. I divided the thyroid gland in the midline. I put a hook in the cricoid cartilage, elevated the cricoid, and then made an incision dividing the second and third rings of cartilage. I then made a lateral incision. I opened the trachea. The endotracheal tube was pulled superiorly until it was out of the tracheotomy site. The tracheotomy tube was placed, a #6 Shiley cuffed fenestrated tube. Then, we hooked up the tracheotomy tube to the ventilation and I sutured in the tracheotomy tube with 2-0 silk. I did cauterize any vessels that I saw during the procedure. The patient tolerated the procedure well. The ties were applied. The patient was then transferred to the [facility] in excellent condition.
[2020-04-29] MEDS: APIXABAN 5 MG TAB (ELIQUIS) PEG SCH (15:35)
--- NOTE | 2020-04-29 16:46 | IPN ---
PULMONARY PROGRESS NOTE DATE: 04/29/2020 ATTENDING PHYSICIAN: Tayler Vicente M.D. SUBJECTIVE: Nedra was seen and examined this morning by the pulmonology service while lying in bed. She is scheduled for her tracheostomy later this morning, after having it delayed from yesterday to today. There were no significant events reported by nursing overnight. She continues to be on mechanical ventilation in the form of pressure support with the setting of IPAP 15, PEEP of 5 and FIO2 of 21%. These have been her settings since Saturday. In preparation for today's tracheostomy, her tube feedings were held after 4:00 p.m. yesterday. Her Heparin was also held after yesterday's evening dose in preparation for the tracheostomy. She is able to again respond appropriately to all questions and commands either via head movements or written word. She continues to report some discomfort surrounding her sacral pressure ulcer, and has continued discomfort of her right upper extremity. OBJECTIVE: PHYSICAL EXAMINATION: VITALS: Temperature 97.2, heart rate 83, respiratory rate 21, blood pressure 130/56 and she is currently saturating at 92% oxygen on the mechanical ventilation at the aforementioned settings with PEEP of 5 and FIO2 of 21%. GENERAL: Elderly female lying in bed on mechanical ventilation. She is dysphasic and is able to respond appropriately to all questions and commands via written word or head movement. She is easily arousable. HEENT: Normocephalic, atraumatic. Non-injected anicteric sclerae. There continues to be some mild conjunctival pallor bilaterally. Pupils are equal, round and reactive to light and accommodation. Continue to have endotracheal tube in place attached to mechanical ventilation. 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 NECK: Supple. No lymphadenopathy is appreciated. Trachea appears midline. CARDIOVASCULAR: Regular rate, regular rhythm. Normal S1, S2. There is a questionable systolic murmur with more prominent S1, but no significant rubs or gallops are appreciated and auscultation is affected by background ventilator noise. 2+ radial pulses bilaterally. RESPIRATORY: There continues to be bilateral rhonchorus breath sounds, a little bit more prominent on the right versus the left. She is on mechanical ventilation on the above mentioned setting with pressure support. Symmetric chest expansion. No accessory muscle use visible. GASTROINTESTINAL: She continues to have a PEG tube in place in the upper middle quadrant. There is no surrounding erythema, induration, discharge or warmth of the skin at the insertion site of the tube. There are hypoactive bowel sounds throughout. She is nontender and non-distended. No rigidity is appreciated. GENITOURINARY: Patient continues to have a Simmons catheter in place. She also continues to have good urinary output and there was approximately 100 cc visualized of light yellow colored urine this morning. EXTREMITIES: There continues to be 1+ pitting left pedal edema. Patient is wearing pneumatic devices, but no lower extremity pitting edema other than the left pedal edema is appreciated. 2+ radial and posterior pulses bilaterally. There is bilateral onychomycosis present. Continues to have some swelling/puffiness of her bilateral upper extremities similar to previous day's exam and there continues to be some bruising on the forearms bilaterally as well. NEUROLOGIC: She is easily arousable, alert and oriented x3. She responds appropriately to questions and commands through written word or head movements. She maintains good eye contact throughout the examination. She has continued right upper extremity hemiparesis and bilateral lower extremity paresis. LABORATORY DATA: WBC 7.6, hemoglobin 9.5, hematocrit 30.6, platelet count 222,000. Serum sodium 141, potassium 4.1, chloride 106, carbon dioxide 29, BUN 14, creatinine 0.36. Calculated GFR of over 60%. Serum glucose 76, calcium 8.6. Total bilirubin 0.2. AST 16, ALT 11, alkaline phosphatase 69. Total protein 6.3, albumin 1.6. ABG from this morning with results: pH 7.45, pCO2 43.1, pO2 86.4. 24-hour input through midnight on the overnight positive 1140 with a 24-hour output of negative 1225 with a net negative of 85. She has received 1140 cc of tube feeds in the past 24 hours, which was stopped at 4:00 p.m. yesterday. IMAGING: Chest x-ray this morning showed continued bilateral airspace disease with left lower lobe retrosternal consolidation with small effusion that appears to be slightly increased from yesterday's study. IMPRESSION/PLAN: 1. Hypoxemic and Hypercarbic respiratory failure secondary to suspected underlying neuromuscular disease. Today rapp the fifth day total of pressure support ventilation settings with support of 15, PEEP of 5, and FIO2 of 21%. She is scheduled for an 11:00 am tracheostomy today and there is potential to investigate whether or not patient can be weaned off mechanical ventilation. In order to do so, we have decreased the pressure support from 15 to 13 this morning to assess how she tolerates that. Should she tolerate that well, we'll continually try to decrease the pressure support to eventually see how she responds. There was a consult placed last weekend by the pulmonology service with PFS to assess whether or not patient can receive home mechanical ventilation. 2. Dysphagia: This is secondary to suspected underlying neuromuscular disease and she has had a PEG tube since April 20. Per nursing, there were no residuals yesterday prior to the tube feeds being held. These will be resumed when she returns from the tracheostomy starting at a rate of 15 mL per hour and then increasing in 15 mL increments from there to the pre-tracheostomy setting of 60 mL per hour. 3. Sacral pressure ulcer: Patient had recently been moved into a more comfortable position prior to us coming in the room, and as result, we did not assess it today. Per nursing report, it continues to be a stage 1/stage 2 pressure ulcer with some surrounding excoriation. The patient is receiving Nystatin for this. This continues to be a painful area and once she returns from the tracheostomy, we'll likely add something more for pain. 4. Normocytic anemia: This has been present throughout her hospitalization and has stayed stable with hemoglobin values around 9. She had her home Eliquis stopped on April 21 in preparation for eventual tracheostomy. Heparin was subsequently held after last night's dose and we will likely resume her home Eliquis after the tracheostomy. We will continue to monitor on follow-up CBCs. 5. Decreased creatinine: This is most likely a result of significant muscle wasting from her suspected underlying neuromuscular disease. With less muscle mass available, there's less breakdown and therefore lower serum creatinine. This has remained stable at around 0.3 throughout her admission. 6. DVT prophylaxis: As discussed above, her Heparin was held after yesterday evening's dose in preparation for the tracheostomy today. Upon returning from the tracheostomy, we will likely switch to her home dosing of Eliquis which is 5 mg b.i.d. She is on this at home due to a left lower extremity DVT diagnosed in 2017. 7. GI prophylaxis: As discussed on prior notes, PPI prophylaxis at this time is not warranted as patient is not emergently ill. She has had stable vitals for the entirety of this week and is handling pressure support ventilation fine. She has no history of gastric or esophageal ulcers that would warrant further prophylaxis and thus no GI prophylaxis is warranted at this time. 8. Suspected underlying neuromuscular disease: Most likely amyotrophic lateral sclerosis. Patient reportedly had been following with neurology in [place], but I am unsure if there has been a definitive workup to diagnosis ALS at this point. We will place an order today for physical therapy as well as for MPO boots to limit risk of drop foot. Total critical care time spent not including procedures approx 40mins. I, Tayler Vicente, conducted independent examination of the patient and agree with the plan as detailed above by the resident and discussed during rounds [email or web address]
[2020-04-30] VITALS (28 sets, daily range): BP systolic 98–165; BP diastolic 48–70; O2SAT 92–99
[2020-04-30] MEDS: MORPHINE 2 MG/ML 1ML VIAL (J2270) IV PRN ×5 (00:15→20:22)
[2020-04-30 04:59] LABS: HEMATOCRIT 30.4 % (36.0-47.0); HEMOGLOBIN 9.3 g/dl (12.0-15.5); MEAN CORPUSCULAR HEMOGLOBIN 27.8 pg (27.0-33.0); MEAN CORPUSCULAR HGB CONC 30.6 g/dl (32.0-36.5); PLATELET COUNT, AUTOMATED 249 10^3/uL (150-450); RED BLOOD COUNT 3.34 10^6/uL (4.00-5.40); WHITE BLOOD COUNT 7.7 10^3/uL (4.0-10.0)
[2020-04-30 05:25] LABS: ALBUMIN 1.6 GM/DL (3.2-5.2); ALT/SGPT 13 U/L (12-78); BILIRUBIN,TOTAL 0.4 MG/DL (0.2-1.0); BLOOD UREA NITROGEN 13 MG/DL (7-18); CALCIUM LEVEL 7.9 MG/DL (8.8-10.2); CARBON DIOXIDE LEVEL 31 MEQ/L (21-32); CHLORIDE LEVEL 104 MEQ/L (98-107); CREATININE FOR GFR 0.38 MG/DL (0.55-1.30); GLOMERULAR FILTRATION RATE > 60.0 (>39); GLUCOSE, FASTING 109 MG/DL (70-100); POTASSIUM SERUM 4.6 MEQ/L (3.5-5.1); SODIUM LEVEL 139 MEQ/L (136-145); TOTAL PROTEIN 5.4 GM/DL (6.4-8.2)
[2020-04-30 06:22] LABS: ABG BASE EXCESS 6.2 (-2.0-2.0); ABG HCO3 30.9 MEQ/L (22.0-26.0); ABG O2 SATURATION 93.4 % (95.0-99.0); ABG PARTIAL PRESSURE O2 66.4 mmHg (75.0-100.0); ABG TOTAL CO2 32.2 MEQ/L (23.0-31.0); ABG pH (ARTERIAL) 7.454 UNITS (7.350-7.450)
[2020-04-30] MEDS: SODIUM CHLORIDE 0.9% INJ 10 ML SYR IV SCH ×2 (06:41→17:13)
[2020-04-30] MEDS: IPRATROPIUM 0.5MG/ALBUTEROL 2.5MG INH SOL UD 3ML (DUONEB) NEB SCH ×4 (07:28→19:10)
[2020-04-30] MEDS: NEUTRA-PHOS 1.5 GM PACKET PO SCH ×3 (09:39→20:23)
[2020-04-30] MEDS: APIXABAN 5 MG TAB (ELIQUIS) PEG SCH ×2 (09:40→20:23)
[2020-04-30] MEDS: CHLORHEXIDINE GLUCONATE 0.12 % 15ML UDC (PERIDEX ORAL RINSE) MT SCH ×2 (09:40→20:23)
[2020-04-30] MEDS: NYSTATIN 100,000 UNITS/GM TOPICAL PWD 15 GM TOP SCH ×2 (09:42→20:22)
--- NOTE | 2020-04-30 10:08 | IPN ---
PROGRESS NOTE DATE: 04/30/2020 SUBJECTIVE: Nedra had a tracheostomy yesterday. Postop has been uncomplicated. Nursing staff notes no new medical issues. OBJECTIVE: VITAL SIGNS: Afebrile. Vital signs stable. GENERAL APPEARANCE: Alert. LUNGS: Clear. HEART: Regular rhythm. ABDOMEN: Soft and nontender. EXTREMITIES: Right hemiparesis. No peripheral edema. LABORATORY DATA: White count 7.7, hemoglobin 9.3, platelets 249,000. Sodium 139, potassium 4.6, BUN 13, creatinine 0.4, glucose 109. ABG 7.45/45/60. IMPRESSION AND PLAN: 1. Upper motor neuron disease probably amyotrophic lateral sclerosis (ALS) with respiratory failure, requiring chronic ventilatory management status post tracheostomy. Appreciate assistance with the pulmonary service. Waiting for PFS to let us know what the home care plan is. My feeling is that she would be very challenging to manage at home and probably needs admission to a snf care facility. 2. Dysphagia. Percutaneous endoscopic gastrostomy (PEG) tube feedings will continue. 3. Sacral pressure ulcer. This is slowly improving. 4. Anemia, stable, chronic, and related to chronic inflammation. 5. History of deep vein thrombosis (DVT). Eliquis restarted 5 mg b.i.d.
[2020-04-30 12:02] LABS: ABG pH (ARTERIAL) 7.444 UNITS (7.350-7.450)
[2020-04-30 12:03] LABS: ABG BASE EXCESS 6.1 (-2.0-2.0); ABG HCO3 30.9 MEQ/L (22.0-26.0); ABG O2 SATURATION 97.3 % (95.0-99.0); ABG PARTIAL PRESSURE CO2 46.1 mmHg (35.0-45.0); ABG PARTIAL PRESSURE O2 90.4 mmHg (75.0-100.0); ABG TOTAL CO2 32.3 MEQ/L (23.0-31.0)
--- NOTE | 2020-04-30 12:52 | CCN ---
PULMONARY CRITICAL CARE NOTE DATE: 04/30/2020 SUBJECTIVE: Patient was seen and examined this morning during bedside rounds. Patient had a tracheostomy tube placed, which she tolerated well. She was continued on mechanical ventilation on pressure support mode, which was decreased to the setting of inspiratory pressure of 13 with a PEEP of 5 and 21% FiO2. She did have occasional mild desaturation noted over night, which improved with some suctioning. She has not had any fevers overnight. She was restarted on tube feeds, which she has been tolerating with no reported residuals. She does continue to report some occasional discomfort in her hip as well as sacral area and some discomfort in the right upper extremity, which she still has hemiparesis. OBJECTIVE: VITAL SIGNS: Temperature 97.7, pulse 63, respirations 18, blood pressure 99/50, oxygen saturation 92% on 21% FiO2. Intake 180, output 1.3 liters, net negative 1.3 liters. GENERAL: Patient is awake and alert and is lying in bed on mechanical ventilation. She does respond appropriately to questions and can follow commands. She does not appear to be in acute distress and is not using any accessory muscles of respiration. HEENT: Normocephalic, atraumatic. Pupils are reactive to light bilaterally. Patient has a tracheostomy tube in place with a dressing with only minimal serosanguineous drainage around it. CARDIOVASCULAR: Regular rate and rhythm. Normal S1, S2. There is a questionable systolic murmur or more prominent S1, but no significant rubs or gallops. RESPIRATORY: There is coarse ventilator breath sounds with occasional rhonchi noted. There is no significant wheezing. GASTROINTESTINAL (GI): Abdomen is soft, nontender and nondistended. She has a percutaneous endoscopic gastrostomy (PEG) tube in place with no surrounding erythema or induration. Extremities: There is trace pitting edema in the lower extremities. There is some ecchymosis noted in her arms bilaterally. LABORATORY DATA: WBC 7.7, hemoglobin 9.3, platelets 249. Chemistry: Sodium 139, potassium 4.6, chloride 104, bicarbonate 31, BUN 13, creatinine 0.38, glucose 169, calcium 7.9, albumin 1.6. Arterial blood gas (ABG): pH 7.44, pCO2 45.0, pO2 66.4. IMAGING: Chest x-ray this morning shows a tracheostomy tube in place. There is mild suggestion of a left lower lobe infiltrate. There is right hemidiaphragm elevation, some mildly prominent pulmonary vascular vessels. ASSESSMENT AND PLAN: Ms. Bledsoe is a 74-year-old female with a past medical history of hypertension, hyperlipidemia, prior history of deep venous thrombosis (DVT) status post inferior vena cava (IVC) filter, history of sacral decubitus ulcer and suspected degenerative neurologic disease with possible amyotrophic lateral sclerosis (ALS) who presented with dysphagia and acute respiratory failure requiring intubation and mechanical ventilation. Patient was also treated for aspiration pneumonia. Patient is now status post tracheostomy tube placement and is on ventilator via the tracheostomy tube. 1. Acute respiratory failure in the setting of underlying degenerative neuromuscular disease. Patient had been on mechanical ventilation and did have an episode of trial extubation, which she failed and required quickly reintubation. She is now status post tracheostomy tube placement and is on ventilator on pressure support settings, which she has been tolerating well. When attempt to wean patient to lower respiratory pressures on the ventilator, she has significantly reduced tidal volumes and reports worsening dyspnea as well as noted to have desaturation. Patient, therefore, will unlikely be unable to be weaned from ventilator to trach collar given her neuromuscular disease contributing to her respiratory failure. - Patient will likely be able to be transitioned from ventilator to a bilevel positive pressure device via her tracheostomy tube. We will place her on settings of 15/5 with FiO2 of 21% and a backup rate of 10. We will repeat an ABG in about 2 hours on the bilevel device. She may potentially be able to be sent home with a home bilevel ventilator. There is concern, however, about her support at home in terms of caring for a tracheostomy and a home ventilator long-term and she may require discharge to a long-term acute care facility, as a possibility. 2. History of dysphagia. Likely secondary to her neuromuscular disease. She is status post PEG tube and has been restarted on her tube feeds with no significant residuals. 3. History of DVT. She has been on heparin for DVT prophylaxis, but was on home Eliquis previously. Will likely be able to resume her home Eliquis of 5 mg twice a day tomorrow. Continue with heparin for prophylaxis for now. GI prophylaxis. None indicated currently. CODE STATUS: FULL CODE. MTDD
--- NOTE | 2020-04-30 16:24 | REP ---
INDICATION: s/p trach. COMPARISON: 04/28/2020, 04/26/2020.. TECHNIQUE: AP portable semi-erect chest FINDINGS: Endotracheal tube now removed and tracheostomy tube in place. No pneumothorax or pneumomediastinum. There is a left subclavian catheter with the tip in the SVC. Heart size not enlarged for portable lordotic chest. No vascular redistribution or pulmonary edema. Retrocardiac density in the left lower lobe may reflect some atelectasis/infiltrate or small effusion, unchanged. Some proven in the visible portion of patchy right base atelectasis or infiltrates. Heart size unchanged. Aorta is calcified at the arch. No abnormal widening of the mediastinum. Appears to be feeding tube overlying the upper abdomen. IMPRESSION: 1. Removal of the endotracheal tube and placement of tracheostomy tube in the interval.. No pneumomediastinum or pneumothorax. Retrocardiac left lower lobe atelectasis/infiltrate/effusion again seen unchanged. No other new finding. <Electronically signed by Andrea Sanford > 04/30/20 [id number]
[2020-04-30] MEDS: ACETAMINOPHEN TAB 650MG DOSE (2X325MG) PO PRN (16:53)
[2020-04-30] MEDS: SODIUM CHLORIDE 0.9% INJ 10 ML SYR IV PRN (17:14)
[2020-05-01] VITALS (21 sets, daily range): BP systolic 102–160; BP diastolic 52–68; O2SAT 93–95
[2020-05-01] MEDS: MORPHINE 2 MG/ML 1ML VIAL (J2270) IV PRN ×2 (04:12→22:18)
[2020-05-01 05:43] LABS: HEMATOCRIT 32.8 % (36.0-47.0); HEMOGLOBIN 10.1 g/dl (12.0-15.5); MEAN CORPUSCULAR HEMOGLOBIN 27.9 pg (27.0-33.0); MEAN CORPUSCULAR HGB CONC 30.8 g/dl (32.0-36.5); MEAN CORPUSCULAR VOLUME 90.6 fl (80.0-96.0); PLATELET COUNT, AUTOMATED 271 10^3/uL (150-450); RED BLOOD COUNT 3.62 10^6/uL (4.00-5.40); WHITE BLOOD COUNT 7.3 10^3/uL (4.0-10.0)
[2020-05-01 05:51] LABS: ABG BASE EXCESS 2.8 (-2.0-2.0); ABG HCO3 27.2 MEQ/L (22.0-26.0); ABG PARTIAL PRESSURE CO2 40.9 mmHg (35.0-45.0); ABG PARTIAL PRESSURE O2 77.1 mmHg (75.0-100.0); ABG STANDARD HCO3 26.9 MEQ/L (22.0-26.0); ABG TOTAL CO2 28.4 MEQ/L (23.0-31.0)
[2020-05-01] MEDS: SODIUM CHLORIDE 0.9% INJ 10 ML SYR IV SCH ×2 (05:52→17:56)
[2020-05-01 06:25] LABS: BLOOD UREA NITROGEN 11 MG/DL (7-18); CREATININE FOR GFR 0.42 MG/DL (0.55-1.30); GLUCOSE, FASTING 156 MG/DL (70-100)
[2020-05-01 06:26] LABS: ALBUMIN 1.7 GM/DL (3.2-5.2); ALT/SGPT 12 U/L (12-78); BILIRUBIN,TOTAL 0.1 MG/DL (0.2-1.0); CALCIUM LEVEL 7.8 MG/DL (8.8-10.2); CARBON DIOXIDE LEVEL 30 MEQ/L (21-32); CHLORIDE LEVEL 104 MEQ/L (98-107); GLOMERULAR FILTRATION RATE > 60.0 (>39); POTASSIUM SERUM 4.2 MEQ/L (3.5-5.1); SODIUM LEVEL 141 MEQ/L (136-145); TOTAL PROTEIN 5.7 GM/DL (6.4-8.2)
[2020-05-01] MEDS: IPRATROPIUM 0.5MG/ALBUTEROL 2.5MG INH SOL UD 3ML (DUONEB) NEB SCH ×4 (07:23→20:08)
[2020-05-01] MEDS: NEUTRA-PHOS 1.5 GM PACKET PO SCH (08:36)
[2020-05-01] MEDS: CHLORHEXIDINE GLUCONATE 0.12 % 15ML UDC (PERIDEX ORAL RINSE) MT SCH ×2 (08:36→22:16)
[2020-05-01] MEDS: APIXABAN 5 MG TAB (ELIQUIS) PEG SCH ×2 (08:36→22:17)
[2020-05-01] MEDS: NYSTATIN 100,000 UNITS/GM TOPICAL PWD 15 GM TOP SCH ×2 (08:37→22:17)
[2020-05-01] MEDS: ACETAMINOPHEN TAB 650MG DOSE (2X325MG) PO PRN ×2 (08:42→19:23)
[2020-05-01 09:37] LABS: PHOSPHORUS LEVEL 3.1 MG/DL (2.5-4.9)
--- NOTE | 2020-05-01 09:52 | IPN ---
PROGRESS NOTE DATE: 05/01/2020 SUBJECTIVE: Nedra is having an uncomplicated day so far, postop day #2 from tracheostomy. PHYSICAL EXAMINATION: VITAL SIGNS: Stable, afebrile. LUNGS: Clear. HEART: Regular rhythm. ABDOMEN: Soft, nontender. NEUROLOGIC: Unchanged. It looks like bedside she is writing notes now. LABORATORY DATA: CBC and BMP unremarkable. PLAN: Continue current management. I will put a call into her son, start to look into how he is feeling about option of her being home with 24/7 care.
--- NOTE | 2020-05-01 12:06 | CCN ---
CRITICAL CARE NOTE DATE: 05/01/2020 SUBJECTIVE: The patient was seen and examined this morning during bedside rounds. The patient has been reporting some slight abdominal discomfort, more in the left lower quadrant. She has been having small bowel movements, reported by nursing which appear soft. She has not had any nausea that she reports. She denies any significant coughing and has not had any fevers overnight. She was placed on BIPAP yesterday via her tracheostomy tube which she has tolerated well. OBJECTIVE: PHYSICAL EXAMINATION: VITAL SIGNS: Temperature 97.7, pulse 96, respirations 20, blood pressure 126/61, O2 sat 94% on 21% FiO2. INTAKE AND OUTPUT: In's 1.5 liters, out 1.5 liters. GENERAL APPEARANCE: The patient is awake and alert and is lying in bed on her right side. She is answering questions appropriately and is following commands. She does not appear to be in any acute respiratory distress. HEENT: Normocephalic and atraumatic. Pupils are reactive to light bilaterally. The patient has a tracheostomy tube in place a with dressing intact with no significant drainage. CARDIOVASCULAR: Regular rate and rhythm, normal S1, S2. There is a questionable systolic murmur, more prominent in S1, but no significant rubs or gallops. RESPIRATORY: There are some diminished breath sounds noted, more on the left base with coarse ventilator breath sounds. There is no significant wheezing or crackles. GI: Abdomen is soft, nontender. There is mild tenderness in the left lower quadrant. She does have a PEG tube in place with no surrounding erythema or induration. EXTREMITIES: There is no significant lower extremity edema noted bilaterally. She does have ecchymosis in her arms bilaterally and her right side continues to have hemiparesis. LABORATORY STUDIES: WBC 7.3, hemoglobin 10.1, platelet count 271. Chemistries - sodium is 141, potassium is 4.2, chloride is 104, bicarbonate is 30, BUN 11, creatinine is 0.42, glucose 166, albumin is 1.7. ABG - pH 7.440, pco2 of 40.9, pO2 of 77.1. ASSESSMENT AND PLAN: The patient is a 74-year-old female with a past medical of hypertension, hyperlipidemia, previous history of DVT, status post IVC filter, history of a sacral decubitus ulcer and suspected degenerative neurologic disease with possible ALS, who presented initially with dysphagia and acute respiratory failure requiring intubation and mechanical ventilation. The patient was also treated for an aspiration pneumonia during her admission. She had failed extubation and had required repeat intubation and mechanical ventilation and is now status post tracheostomy tube. Acute respiratory failure in the setting of underlying degenerative neuromuscular disease - The patient is now status post tracheostomy tube placement and has been placed on BIPAP which she tolerated yesterday during the day and all through the evening. Her ABG his morning was on BIPAP and does not show any significant hypercapnia. - We will continue the patient on bi-level pressure support via her tracheostomy tube with settings of 15/5 and an FiO2 of 21% with a backup respiratory rate of 10. the patient will likely be unable to be weaned from the bi-level given her neuromuscular disease as with less inspiratory support pressures, she does have significant fatigue as well as hypoxia and reduced tidal volume. - The patient's chest x-ray yesterday did show some left basilar atelectasis which appeared unchanged she does appear to prefer her left side down, given her right hemiparesis and some discomfort in that right arm. We will continue to encourage the patient to be left side up as well as sitting up in bed as much as tolerated. She does not have any evidence of fever or leukocytosis, and she has minimal sputum with suctioning via her trach and does not require antibiotics at this time. would closely monitor however for signs of developing tracheobronchitis or PNA clinically History of dysphagia secondary to her neuromuscular disease she is status post PEG tube and has been tolerating her tube feeds which no residuals. She does have some gas and some occasional abdominal discomfort, so we will try transitioning her from Jevity to vital AF tube feeds and will decrease her Neutra-Phos as her repeat phosphorous level today is acceptable. History of DVT she had been on Heparin for DVT prophylaxis but was previously on Eliquis which was restarted after her tracheostomy GI prophylaxis none indicated currently. Code Status full code. DISPOSITION: The patient will likely require placement at a fpc acute care facility, although she had preferred the possibility of going home with a home bi-level ventilator. There is concern that her family will not have the appropriate support to care for a long term care pharmacist tracheostomy and home ventilator as well as tube feedings. PFS has been consulted. PT/OT has been consulted. Please do not hesitate to call if any further questions or concerns. DEBBIED
[2020-05-01] MEDS: ALPRAZolam 0.5 MG TAB PO PRN ×2 (13:13→22:23)
[2020-05-01] MEDS: SODIUM CHLORIDE 0.9% INJ 10 ML SYR IV PRN (17:56)
[2020-05-02] VITALS (10 sets, daily range): BP systolic 108–172; BP diastolic 48–78
[2020-05-02] MEDS: MORPHINE 2 MG/ML 1ML VIAL (J2270) IV PRN (01:27)
[2020-05-02 05:01] LABS: HEMATOCRIT 33.7 % (36.0-47.0); HEMOGLOBIN 10.4 g/dl (12.0-15.5); MEAN CORPUSCULAR HEMOGLOBIN 28.5 pg (27.0-33.0); MEAN CORPUSCULAR HGB CONC 30.9 g/dl (32.0-36.5); MEAN CORPUSCULAR VOLUME 92.3 fl (80.0-96.0); PLATELET COUNT, AUTOMATED 295 10^3/uL (150-450); RED BLOOD COUNT 3.65 10^6/uL (4.00-5.40); WHITE BLOOD COUNT 6.8 10^3/uL (4.0-10.0)
[2020-05-02 05:22] LABS: ALT/SGPT 11 U/L (12-78); BILIRUBIN,TOTAL 0.1 MG/DL (0.2-1.0); BLOOD UREA NITROGEN 16 MG/DL (7-18); CALCIUM LEVEL 8.5 MG/DL (8.8-10.2); CARBON DIOXIDE LEVEL 31 MEQ/L (21-32); CHLORIDE LEVEL 105 MEQ/L (98-107); CREATININE FOR GFR 0.36 MG/DL (0.55-1.30); GLOMERULAR FILTRATION RATE > 60.0 (>39); GLUCOSE, FASTING 120 MG/DL (70-100); POTASSIUM SERUM 3.8 MEQ/L (3.5-5.1); SODIUM LEVEL 141 MEQ/L (136-145); TOTAL PROTEIN 6.5 GM/DL (6.4-8.2)
[2020-05-02 05:23] LABS: ALBUMIN 1.7 GM/DL (3.2-5.2)
[2020-05-02] MEDS: IPRATROPIUM 0.5MG/ALBUTEROL 2.5MG INH SOL UD 3ML (DUONEB) NEB SCH ×4 (06:06→19:32)
[2020-05-02] MEDS: SODIUM CHLORIDE 0.9% INJ 10 ML SYR IV SCH ×2 (07:54→18:08)
[2020-05-02] MEDS: CHLORHEXIDINE GLUCONATE 0.12 % 15ML UDC (PERIDEX ORAL RINSE) MT SCH ×2 (09:46→20:47)
[2020-05-02] MEDS: NEUTRA-PHOS 1.5 GM PACKET PO SCH (09:47)
[2020-05-02] MEDS: APIXABAN 5 MG TAB (ELIQUIS) PEG SCH ×2 (09:47→20:48)
[2020-05-02] MEDS: NYSTATIN 100,000 UNITS/GM TOPICAL PWD 15 GM TOP SCH ×2 (09:48→20:49)
[2020-05-02] MEDS: ACETAMINOPHEN TAB 650MG DOSE (2X325MG) PO PRN ×2 (11:38→18:09)
--- NOTE | 2020-05-02 11:46 | IPN ---
PROGRESS NOTE DATE: 05/02/2020 SUBJECTIVE: Nedra is seen in the PCU. She is on the ventilator, she is tolerating this well. She looks much brighter in the last few days, interactive and writing notes to communicate. PHYSICAL EXAMINATION: VITAL SIGNS: Blood pressure 120/56, pulse 70, 93% O2 saturation, pressure support only. GENERAL APPEARANCE: Chronically ill-appearing. Tracheostomy site looks good. LUNGS: Good air movement. HEART: Regular rate and rhythm. ABDOMEN: Soft, nontender and nondistended. EXTREMITIES: Right hemiparesis, trace peripheral edema. LABORATORY DATA: CBC: White count is 6.8, hemoglobin is 10.4, platelets were 295,000, sodium 141, potassium is 3.8, BUN 16, creatinine 0.3, glucose 120. The serology tests ordered by Neurology for possible myasthenia gravis were negative. IMPRESSION: 1. Acute respiratory failure secondary to presumed ALS. She is now ventilator dependent. I have discussed this with Dr. Vicente. The patient will require long-term ventilator, currently just on pressure support. This will lead to disposition issues that will be summarized below. 2. ALS. I have a call in for Neurology. I would like them to see her and consider initiating treatment for presumed ALS as this patient is not feasibly going to get to their office or any other neurology office for EMG or nerve conduction study, and this cannot be done in the hospital. 3. Dysphagia with protein calorie malnutrition requiring PEG-tube placement. Continue her tube feedings. Her nutrition has improved well with this. 4. History of DVT. Continue her Eliquis. I have been trying to communicate with the patient's son who is the decision maker, his name is Gustavo Paul and his number is [phone]. Unfortunately, he has not answered his phone in the last four days and his voice mail is full and not accepting further messages. I spoke to her daughter, Tammie, who defers decision making to her brother and her telephone number is [phone]. We discussed the situation at length today. Tammie and her brother Ramón plan to take care of Nedra in her home after discharge. I indicated to her that this would require 24 hour line of sight care, if the ventilator separates from her tracheostomy she will asphyxiate and and she also came in with a bed sore indicating that she will need position changes and skin care. She feels that she and her brother are up to the challenges of this. Professionally, I am skeptical that they are going to be able to do this but they seem intent on her going home. This will all be discussed at care rounds today. If they do intend to take her home, it would be important for them to come in and spend several days with the nurses learning how to do deal with the trach, the ventilator and the wound care for her sacral ulcer and also work with Physical Therapy on range of motion as well. I have a call in for Neurology to see whether they would like to initiate any empiric treatment for ALS prior to her discharge.
--- NOTE | 2020-05-02 11:46 | IPN ---
PROGRESS NOTE DATE: 05/02/[address] Ariza from neurology today. Question was raised whether empiric treatment for suspected ALS would be appropriate. He indicated the only approved medications to increase life expectancy need to be initiated prior to respiratory failure, as their only benefit has been delaying time to reach respiratory failure. Therefore, he does not recommend any empiric therapy with riluzole prior to the patient going home for what should be palliative care.
[2020-05-03] VITALS (11 sets, daily range): BP systolic 92–178; BP diastolic 46–73
[2020-05-03] MEDS: ACETAMINOPHEN TAB 650MG DOSE (2X325MG) PO PRN ×4 (00:08→18:01)
[2020-05-03] MEDS: ALPRAZolam 0.25 MG TAB PO PRN ×2 (00:08→20:19)
[2020-05-03 05:25] LABS: HEMATOCRIT 31.9 % (36.0-47.0); HEMOGLOBIN 9.5 g/dl (12.0-15.5); MEAN CORPUSCULAR HEMOGLOBIN 27.2 pg (27.0-33.0); MEAN CORPUSCULAR HGB CONC 29.8 g/dl (32.0-36.5); MEAN CORPUSCULAR VOLUME 91.4 fl (80.0-96.0); PLATELET COUNT, AUTOMATED 324 10^3/uL (150-450); RED BLOOD COUNT 3.49 10^6/uL (4.00-5.40); WHITE BLOOD COUNT 6.3 10^3/uL (4.0-10.0)
[2020-05-03 05:52] LABS: ALBUMIN 1.7 GM/DL (3.2-5.2); ALT/SGPT 12 U/L (12-78); BILIRUBIN,TOTAL 0.1 MG/DL (0.2-1.0); BLOOD UREA NITROGEN 20 MG/DL (7-18); CALCIUM LEVEL 8.8 MG/DL (8.8-10.2); CARBON DIOXIDE LEVEL 31 MEQ/L (21-32); CHLORIDE LEVEL 105 MEQ/L (98-107); CREATININE FOR GFR 0.27 MG/DL (0.55-1.30); GLOMERULAR FILTRATION RATE > 60.0 (>39); GLUCOSE, FASTING 104 MG/DL (70-100); SODIUM LEVEL 143 MEQ/L (136-145); TOTAL PROTEIN 6.3 GM/DL (6.4-8.2)
[2020-05-03] MEDS: SODIUM CHLORIDE 0.9% INJ 10 ML SYR IV SCH ×2 (06:26→18:02)
[2020-05-03] MEDS: IPRATROPIUM 0.5MG/ALBUTEROL 2.5MG INH SOL UD 3ML (DUONEB) NEB SCH ×4 (07:02→19:43)
[2020-05-03] MEDS: NEUTRA-PHOS 1.5 GM PACKET PO SCH (08:20)
[2020-05-03] MEDS: APIXABAN 5 MG TAB (ELIQUIS) PEG SCH ×2 (08:20→20:18)
[2020-05-03] MEDS: NYSTATIN 100,000 UNITS/GM TOPICAL PWD 15 GM TOP SCH ×2 (10:26→20:19)
[2020-05-03] MEDS: CHLORHEXIDINE GLUCONATE 0.12 % 15ML UDC (PERIDEX ORAL RINSE) MT SCH ×2 (10:26→20:18)
--- NOTE | 2020-05-03 12:38 | IPNPDOC ---
Text Note Date of Service The patient was seen on 05/03/20. 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 She ultimately received a tracheostomy and PEG tube placement. Patient was seen and examined at the bedside. Patient does not appear to be in any distress, is awake and alert, nonverbal but can communicate and understand. Denies any chest pain. Does report some pain on her lower back side. Objective: Vitals (See below) General: Lying in bed, appears comfortable, Awake / Alert HEENT: NC, AT, +Trach CVS: +S1S2 Lungs: Fair air entry b/l, -w/r/r Abdomen: Soft, ND, NT, +PEG Extremities: - Edema, - Calf tenderness Assessment and plan: Acute respiratory failure - possibly 2/2 ALS - s/p Tracheostomy 04/29/2020 - Will likely require long-term ventilator - Pulmonology was on consultation; has given recommendations for trilogy non- invasive ventilator ALS - Neurology on consultation; no Riluzole for now Dysphagia with protein calorie malnutrition - s/p PEG tube placement 04/20/2020 - c/w PEG tube feedings Hx of DVT - c/w Eliquis Anxiety - c/w Alprazolam PRN DVT prophylaxis - c/w full anticoagulation with Eliquis Durable medical equipment: Hospital Bed 1. The beneficiary has a medical condition which requires positioning of the bodily in ways not feasible with an ordinary bed. Elevation of the head/upper body less than 30 degrees, does not usually require the use of a hospital bed, or 2. The beneficiary requires positioning of the body in ways not feasible within normal urinary bed in order to alleviate pain, or 3. Beneficiary requires the head of bed to be elevated more than 30 degrees and most of the time due to congestive heart failure, chronic pulmonary disease, or problems with aspiration, or 4. The beneficiary requires traction equipment, which can only be attached to a hospital bed. AND The beneficiary requires frequent changes in body position and/or has any immediate need for a change in body position Disposition: - PFS on board - Family wants to take patient home with vent management / trach management / PEG tube feedings VS,Fishbone, I+O VS, Fishbone, I+O Laboratory Tests 05/03/20 04:46 Vital Signs Date Time Temp Pulse Resp B/P (MAP) Pulse Ox O2 Delivery O2 Flow Rate FiO2 05/03/20 12:00 98.1 102 24 141/64 (89) 96 05/03/20 08:00 30 05/01/20 22:28 NIPPV (BIPAP/CPAP) I&O- Last 24 Hours up to 6 AM 05/03/20 06:00 Intake Total 1800 ml Output Total 950 ml Balance 850 ml YUKO WONG MD May 03, 2020 12:38
[2020-05-04] MEDS: ACETAMINOPHEN TAB 650MG DOSE (2X325MG) PO PRN ×3 (00:12→12:52)
[2020-05-04] MEDS: SODIUM CHLORIDE 0.9% INJ 10 ML SYR IV SCH ×2 (06:32→18:34)
[2020-05-04 07:48] VITALS: BP 105/65
[2020-05-04] MEDS: IPRATROPIUM 0.5MG/ALBUTEROL 2.5MG INH SOL UD 3ML (DUONEB) NEB SCH ×4 (07:59→20:19)
[2020-05-04] MEDS: APIXABAN 5 MG TAB (ELIQUIS) PEG SCH ×2 (10:00→21:44)
[2020-05-04] MEDS: CHLORHEXIDINE GLUCONATE 0.12 % 15ML UDC (PERIDEX ORAL RINSE) MT SCH ×2 (10:00→21:43)
[2020-05-04] MEDS: NEUTRA-PHOS 1.5 GM PACKET PO SCH (10:00)
[2020-05-04] MEDS: NYSTATIN 100,000 UNITS/GM TOPICAL PWD 15 GM TOP SCH ×2 (10:01→21:44)
[2020-05-04 12:00] VITALS: BP 139/65
[2020-05-04 18:15] VITALS: O2SAT 88
[2020-05-04 19:00] VITALS: O2SAT 89
[2020-05-04 20:00] VITALS: O2SAT 74
[2020-05-04] MEDS: ALPRAZolam 0.25 MG TAB PO PRN (21:43)
[2020-05-05] VITALS (16 sets, daily range): BP systolic 91–164; BP diastolic 50–74; O2SAT 91–99
[2020-05-05 06:11] LABS: ABG BASE EXCESS -0.2 (-2.0-2.0); ABG HCO3 26.5 MEQ/L (22.0-26.0); ABG O2 SATURATION 99.3 % (95.0-99.0); ABG PARTIAL PRESSURE O2 164.6 mmHg (75.0-100.0); ABG STANDARD HCO3 24.3 MEQ/L (22.0-26.0); ABG TOTAL CO2 28.1 MEQ/L (23.0-31.0); ABG pH (ARTERIAL) 7.317 UNITS (7.350-7.450)
[2020-05-05] MEDS: SODIUM CHLORIDE 0.9% INJ 10 ML SYR IV PRN (06:13)
[2020-05-05] MEDS: SODIUM CHLORIDE 0.9% INJ 10 ML SYR IV SCH ×2 (06:21→18:19)
[2020-05-05] MEDS: IPRATROPIUM 0.5MG/ALBUTEROL 2.5MG INH SOL UD 3ML (DUONEB) NEB SCH ×4 (07:19→19:59)
[2020-05-05] MEDS: SODIUM CHLORIDE HYPERTONIC 3% 15ML NEB SOL INH SCH ×5 (07:19→23:25)
--- NOTE | 2020-05-05 08:17 | REP ---
INDICATION: SOB. COMPARISON: 04/30/2020 TECHNIQUE: AP portable upright FINDINGS: Tracheostomy tube is again noted. There is a left-sided PICC line with tip in the SVC near junction with brachiocephalic vein. Lungs hypoinflated. Retrocardiac left lower lobe density is again noted suggesting chronic atelectasis and or infiltrate with possible effusion. Patchy perihilar areas of atelectasis or infiltrate. No floridalma edema. No definite right effusion. No evidence of pneumothorax. The aorta is quite tortuous and calcified but unchanged and without gross aneurysm. IMPRESSION: The tracheostomy tube and left-sided PICC line as before. Retrocardiac left lower lobe density versus suggesting chronic atelectasis and or infiltrate with possible effusion. Some patchy perihilar atelectasis or infiltrates bilaterally. No definite right lung effusion. No floridalma edema. <Electronically signed by Andrea Sanford > 05/05/20 08
[2020-05-05 08:45] LABS: BASO # 0.1 10^3/uL (0.0-0.2); BASO % 0.5 % (0.0-1.0); EOS % 0.2 % (0.0-3.0); HEMATOCRIT 36.2 % (36.0-47.0); LYMPH # 0.9 10^3/uL (1.5-5.0); LYMPH % 6.9 % (24.0-44.0); MEAN CORPUSCULAR HEMOGLOBIN 27.8 pg (27.0-33.0); MEAN CORPUSCULAR HGB CONC 30.4 g/dl (32.0-36.5); MEAN CORPUSCULAR VOLUME 91.4 fl (80.0-96.0); MONO # 0.7 10^3/uL (0.0-0.8); MONO % 5.5 % (2.0-8.0); NEUTROPHILS % 86.3 % (36.0-66.0); PLATELET COUNT, AUTOMATED 480 10^3/uL (150-450); RED BLOOD COUNT 3.96 10^6/uL (4.00-5.40); WHITE BLOOD COUNT 12.7 10^3/uL (4.0-10.0)
[2020-05-05] MEDS: NYSTATIN 100,000 UNITS/GM TOPICAL PWD 15 GM TOP SCH ×2 (08:51→21:09)
[2020-05-05] MEDS: NEUTRA-PHOS 1.5 GM PACKET PO SCH (08:51)
[2020-05-05] MEDS: CHLORHEXIDINE GLUCONATE 0.12 % 15ML UDC (PERIDEX ORAL RINSE) MT SCH ×2 (08:51→21:08)
[2020-05-05] MEDS: APIXABAN 5 MG TAB (ELIQUIS) PEG SCH ×2 (08:52→21:09)
[2020-05-05] MEDS ORDERED: guaiFENesin ER 600 MG TAB PO SCH (09:00)
[2020-05-05 09:10] LABS: ALBUMIN 2.3 GM/DL (3.2-5.2); ALT/SGPT 27 U/L (12-78); BILIRUBIN,TOTAL 0.1 MG/DL (0.2-1.0); BLOOD UREA NITROGEN 30 MG/DL (7-18); CARBON DIOXIDE LEVEL 31 MEQ/L (21-32); CHLORIDE LEVEL 104 MEQ/L (98-107); CREATININE FOR GFR 0.37 MG/DL (0.55-1.30); GLOMERULAR FILTRATION RATE > 60.0 (>39); GLUCOSE, FASTING 178 MG/DL (70-100); MAGNESIUM LEVEL 2.2 MG/DL (1.8-2.4); POTASSIUM SERUM 4.5 MEQ/L (3.5-5.1); SODIUM LEVEL 139 MEQ/L (136-145); TOTAL PROTEIN 6.9 GM/DL (6.4-8.2)
--- NOTE | 2020-05-05 12:40 | IPNPDOC ---
Text Note Date of Service The patient was seen on 05/05/20. 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 She ultimately received a tracheostomy and PEG tube placement. Patient was seen and examined at the bedside. Patient is awake and alert, able to understand and communicates via writing can follow commands, does not appear to be in any acute distress. Overnight patient had tachypnea and hypoxia requi red bag for venting. Pulmonary was called overnight patient required aggressive suctioning, chest PT, hypertonic saline nebulization and DuoNeb therapy to help break secretions. Objective: Vitals (See below) General: Patient is laying in bed, does not appear to be in any acute distress, is awake and alert and oriented HEENT: NC, AT, +Trach CVS: +S1S2 Lungs: There appears to be fair air entry bilaterally, rhonchi can be appreciated bilaterally. No evidence of wheezing or crackles Abdomen: Without distention, without tenderness, and remains soft, +PEG Extremities: No evidence of edema, - Calf tenderness Assessment and plan: Acute respiratory failure - possibly 2/2 ALS - Patient had episodes of hypoxia overnight requiring aggressive chest PT and mucus plug breakdown - s/p Tracheostomy 04/29/2020 - Will likely require long-term ventilator - c/w DuoNeb / Hypertonic saline - c/w Chest PT - Will add Mucinex - Pulmonology on consultation Leukocytosis - CXR 05/05: The tracheostomy tube and left-sided PICC line as before. Retrocardiac left lower lobe density versus suggesting chronic atelectasis and or infiltrate with possible effusion. Some patchy perihilar atelectasis or infiltrates bilaterally. No definite right lung effusion. No floridalma edema. - Will check sputum culture / Procalcitonin / CRP / Lactic acid - Will start Augmentin ALS - Neurology on consultation; no Riluzole for now Dysphagia with protein calorie malnutrition - s/p PEG tube placement 04/20/2020 - c/w PEG tube feedings - bolus feeds Hx of DVT - c/w Eliquis Anxiety - c/w Alprazolam PRN GI prophylaxis - Will start PPI DVT prophylaxis - c/w full anticoagulation with Eliquis Disposition: - PFS on board; Family wants to take patient home with vent management / trach management / PEG tube feedings - Called and discussed case with Daughter; Tammie Ribeiro - advised her that home plan may not be a practical and safe medical care manager solution - I have attempted to call sonGustavo at [phone] and he has not answered his phone after 6 calls - I have advised Tammie Ribeiro that if an event like today (05/05 AM) occurred at home they may not have the resources available to facilitate care for her - There is a very strong likelihood of an adverse outcome occurring if she is discharged home and she does not have the appropriate level of care established; including but not limited to pressure ulcers, asphyxiation, pneumonia (and other infections) and or - Family has been made very aware of these concerns Prognosis: Poor Code status: Full code VS,Fishbone, I+O VS, Fishbone, I+O Laboratory Tests 05/05/20 08:14 Vital Signs Date Time Temp Pulse Resp B/P (MAP) Pulse Ox O2 Delivery O2 Flow Rate FiO2 05/05/20 12:00 97.3 105 20 100/58 (72) 99 NIPPV (BIPAP/CPAP) 60 I&O- Last 24 Hours up to 6 AM 05/05/20 06:00 Intake Total 420 ml Output Total 600 ml Balance -180 ml YUKO WONG MD May 05, 2020 12:40
[2020-05-05] MEDS: AUGMENTIN 875 MG TAB PO SCH ×2 (14:00→21:08)
--- NOTE | 2020-05-05 14:58 | CCN ---
PULMONARY CRITICAL CARE NOTE DATE: 04/27/2020 SUBJECTIVE: Nedra was seen and examined this morning by the pulmonary service while lying in bed. She continues to be on mechanical ventilation and she is now ventilator dependent. She reports being able to sleep more so last night with diminished pain of her right arm today versus previous days. She continues to get tube feeds and is due for a tracheostomy tomorrow morning (04/28/2020) with the ENT service. She continues to have good urinary output and has had bowel movements over the past three days. She continues to tolerate well the pressure support setting for her mechanical ventilation and she has now been on pressure support for 48 hours with settings of FiO2 21, pressure support 15 and a PEEP of 5. There were no reported telemetry events overnight, nor any neurologic seizure-like activity or spasticity reported by the nursing staff. OBJECTIVE: VITAL SIGNS: Temperature 97.2, blood pressure 107/51, heart rate 98, respiratory rate 17, oxygen saturation 94% on pressure support mechanical ventilation with FiO2 of 21%. HEENT: Normocephalic, atraumatic. Noninjected anicteric sclerae. Mild conjunctival pallor. Mucous membranes appear slightly more moist today versus previous days. Endotracheal tube is in place. NECK: No cervical or supraclavicular adenopathy appreciated. Neck is supple. CARDIOVASCULAR: Regular rate, regular rhythm. Normal S1, S2. Radial pulses 2+ bilaterally. PULMONARY: Continues to be on the aforementioned pressure support mechanical ventilator settings. No significant adventitious breath sounds appreciated. There is some diminished tidal volume bilaterally. Symmetric chest expansion. No accessory muscle use. GASTROINTESTINAL: Percutaneous endoscopic gastrostomy (PEG) tube is in place upper middle quadrant of the abdomen. There is no surrounding erythema, induration or discharge at the insertion site. Abdomen is soft and non-distended. There is some slight tenderness to palpation at the right upper and middle epigastric quadrants. There is no rigidity. There are hypoactive bowel sounds present. NEUROLOGIC: Patient is awake, alert and oriented times three, responding either via head or hand motions or written word. She responds appropriately to each question and command and maintains good eye contact throughout the examination. There is right upper extremity hemiparesis as well as bilateral lower extremity paresis. Patient is aphasic. EXTREMITIES: There continues to be approximately 1+ pitting edema of the left lower extremity, as well as some slight swelling of the bilateral upper extremities, right more so than left. There is a peripherally inserted central catheter (PICC) line present in the left upper extremity. HEMATOLOGIC: There continues to be bruising present bilateral forearms unchanged from previous days' exams. SKIN: Patient was in a comfortable position today, so we deferred inspecting her sacral ulcer at this time. It had remained unchanged on prior day exams, approximately stage I to stage II with some surrounding excoriated skin. GENITOURINARY: There is a Simmons catheter in place with, upon visualization this morning, having approximately 150 mL of light yellow colored urine draining. LABORATORIES: WBC 6.8, hemoglobin 8.9, hematocrit 28.5, platelet count 179. Serum sodium 143, potassium 4.3, chloride 107, bicarbonate 30, BUN 14, creatinine 0. 38, with a calculated GFR greater than 60%, glucose 72, calcium 7.9. Arterial blood gas this morning resulted with a pH 8.6, pCO2 34.9, pO2 107.4. 24-hour intake and output (I and O) through midnight on the overnight of 04/26/2020 to 04/27/2020 show 1882 intake, 1810 output with a net balance of +72 mL. Urine output in the 24 hour period was approximately 1800 mL. IMAGING: There was no portable chest x-ray study taken this morning. IMPRESSION AND PLAN: 1. Respiratory failure secondary to neurologic ventilatory cause due to presumed progressive neuromuscular disease. Patient is ventilator dependent. She has been doing very well on pressure support mechanical ventilation for the past 48 hours with unchanged settings of FiO2 of 21, PEEP 5 and pressure support of 15. With her being ventilator dependent, a tracheostomy has been scheduled and will occur tomorrow morning, , April 28, 2020 via the ENT service. In preparation, a portable chest x-ray will be ordered for tomorrow morning prior to the tracheostomy. 2. Deep venous thrombosis (DVT) prophylaxis. She is currently receiving heparin at 5000 units subcutaneous every 8 hours. This will be held after this evening's scheduled dose in preparation for her tracheostomy tomorrow. As an outpatient, she is on Eliquis for a history of bilateral DVTs s/p IVC filter. Once the tracheostomy is performed and the trach tube is in, patient will then be able to transfer back to her home Eliquis dosing. 3. Gastrointestinal (GI) prophylaxis. As the patient is no longer under stress/acutely ill and maintaining well on the pressure support ventilation, with no history warranting continued proton pump inhibitor (PPI) administration, she remains off of any GI prophylaxis at this time. I, Rickie Avila, Agree with the history and physical as outlined above by the resident after conducting and independent history and exam. The assessment and plan was discussed at bedside. AMBROCIO
[2020-05-05] MEDS: NS 1,000 ML IV SCH (15:37)
[2020-05-05] MEDS: guaiFENesin SYRUP 200 MG/10 ML UDC PO SCH ×2 (15:51→21:08)
--- NOTE | 2020-05-05 16:25 | IPN ---
PULMONARY PROGRESS NOTE DATE OF SERVICE: 04/28/2020 Dr. Palmer Sams Resident Physician dictating for Attending Physician Dr. Rickie Avila. SUBJECTIVE: Nedra was seen and examined this morning by the pulmonary service at the bedside. Unfortunately, the tracheostomy that had been scheduled for this morning was delayed due to continued tube feedings overnight; thus, the patient has been rescheduled for tomorrow morning, April 29 for tracheostomy at 11:00 a.m. with the ENT service. As a result her heparin was resumed and will be subsequently held after the evening dose tonight in preparation for tomorrow morning's tracheostomy. After that, she'll most likely be able to be switch over to her home anticoagulation in the form of Eliquis. A nursing order to stop her tube feeds this evening was placed in preparation for the tracheostomy tomorrow. Other than the rescheduling of the tracheostomy, patient continues to do fairly well with pressure support, mechanical ventilation. For the past 72 hours she has been at the same pressure support settings of 15 with a PEEP of 5 and an FiO2 of 21%. Per nursing, she had had some mucus plugging on previous overnight shifts, but none last night. Suction was needed this morning to remove a significant amount of secretions, but no mucus plugging. No residuals were reported this morning on her tube feeds. She continues to have pain and discomfort around her sacral pressure ulcer. OBJECTIVE: Vital signs: Temperature 97.6, heart rate 81, respiratory rate 20, blood pressure 107/53, oxygen saturation 92% on mechanical ventilation pressure support with FiO2 of 21% and PEEP of 5. General: Pleasant, elderly female lying in bed on mechanical ventilation. She is able to respond appropriately to all of our questions and commands either by head motions or by written word. She is alert and oriented times 3. No significant respiratory muscle use or increased work of breathing visualized with the mechanical ventilation. HEENT: Normocephalic, atraumatic. Non-injected, anicteric sclerae; there is mild conjunctiva pallor. Pupils adequate exposure equal, round and reactive to light and accommodation bilaterally. Endotracheal tube is present and attached to a ventilator. Neck: Supple, no lymphadenopathy appreciated. Cardiovascular: Regular rate, regular rhythm, normal S1 and S2, no murmurs or rubs are appreciated. Two plus radial pulses bilaterally. Respiratory: Patient is on mechanical ventilation with the aforementioned settings. She has diminished tidal volume with symmetric chest expansion. There is some bilateral rhonchorous breath sounds associated with the ventilator. No accessory muscle use visualized or increased work of breathing. No wheezes or crackles are appreciated on auscultation. Gastrointestinal: PEG tube remains in place in the upper middle abdominal quadrant. There is no surrounding erythema, induration or exudate at the site of insertion of the PEG tube. Hypoactive bowel sounds throughout. There is some mild to moderate right lower quadrant tenderness. There is no rigidity appreciated. Extremities: 1+ left pedal edema. Patient is wearing sequential devices on both lower extremities. Onychomycosis to bilateral toenails. 2+ radial pulses bilaterally. Neurologic: Patient is awake, easily arousable, alert and oriented times 3. She maintains good eye contact throughout the examination. She responds appropriately to all questions/commands either via head motion or written word. She is aphasic. She has right upper extremity hemiparesis and bilateral lower extremity paresis. Genitourinary: Simmons catheter remains in place with approximately 150 mL of light colored yellow urine present. Twenty-four hour input 5090, output 1115, net positive of 475. Patient has had 3 bowel movements in the last 24 hours. Ventilatory settings pressure support 15, PEEP 5, FiO2 21%. LABORATORY DATA: WBC 8.9, hemoglobin 9.4, MCV 90%, hematocrit 31.2, platelets 221. Sodium 143, potassium 4.3, chloride 108, bicarb 30, BUN 14, creatinine 0.38, glucose 104. Calcium 7.9, total protein 5.6, albumin 1.6. There was an arterial blood gas order that was canceled with a reason for reordering and subsequently a new order has been placed. IMAGING: At the time of review of her chart image of a portal chest x-ray this morning was not yet back, but it was confirmed that one was taken. IMPRESSIONS AND PLANS: 1. Respiratory failure secondary to neurologic ventilatory failure due to underlying progressive neuromuscular disease: She continues to tolerate well pressure support mechanical ventilation. Tracheostomy rescheduled for tomorrow morning, April 29. There is a potential that patient may be able to just need a trach rather than a trach plus mechanical ventilation. This is based on her success with pressure support and the fact that maybe an issue with swallowing would be bypassed by a trach. Either way, we will re-evaluate this and subsequently contact the patient's daughter and Health Care Proxy Tammie Ribeiro to inform her of this update. Ms. Ribeiro was made aware by nursing this morning that the trach has been rescheduled. 2. Normocytic anemia: This continues to be stable with hemoglobins around 9. 3. Decreased serum creatinine: This is most likely a result of significant decreased muscle mass from her progressive neuromuscular disease and subsequent immobility. This has been consistently low and with decreased muscle mass, there is less breakdown of muscle and hence less serum creatinine. 4. DVT prophylaxis: The patient's heparin had been held last night in preparation for the scheduled trach today. This has subsequently been renewed and will be held this evening after tonight's dose in preparation for tomorrow morning's trach. She was on Eliquis as an outpatient prior to admission for history of DVT and likely after tracheostomy we will switch back to Eliquis for anticoagulation. 5. GI prophylaxis: Patient no longer is under stress despite being on mechanical ventilation. She is on pressure support, but she has remained hemodynamically stable and thus there is no indication for GI prophylaxis especially because she has no history of known ulceration. I, Rickie Avila, Agree with the history and physical as outlined above by the resident after conducting and independent history and exam. The assessment and plan was discussed at bedside. AMBROCIO
[2020-05-05] MEDS: OMEPRAZOLE SUSPENSION 20MG 10ML ORAL SYRINGE PEG SCH (21:08)
[2020-05-05] MEDS: IPRATROPIUM 0.5MG/ALBUTEROL 2.5MG INH SOL UD 3ML (DUONEB) NEB PRN (23:24)
[2020-05-06] VITALS (17 sets, daily range): BP systolic 96–146; BP diastolic 48–77; O2SAT 90–99
[2020-05-06] MEDS: ALPRAZolam 0.25 MG TAB PO PRN ×2 (00:37→22:03)
[2020-05-06] MEDS: ACETAMINOPHEN TAB 650MG DOSE (2X325MG) PO PRN ×3 (00:38→08:55)
[2020-05-06] MEDS: IPRATROPIUM 0.5MG/ALBUTEROL 2.5MG INH SOL UD 3ML (DUONEB) NEB PRN (03:14)
[2020-05-06] MEDS: SODIUM CHLORIDE HYPERTONIC 3% 15ML NEB SOL INH SCH ×6 (03:14→23:58)
[2020-05-06] MEDS: NS 1,000 ML IV SCH ×2 (03:36→18:01)
[2020-05-06] MEDS: SODIUM CHLORIDE 0.9% INJ 10 ML SYR IV SCH ×2 (04:50→18:00)
[2020-05-06 05:29] LABS: BASO % 0.3 % (0.0-1.0); EOS # 0.1 10^3/uL (0.0-0.5); EOS % 0.8 % (0.0-3.0); HEMATOCRIT 29.5 % (36.0-47.0); HEMOGLOBIN 8.6 g/dl (12.0-15.5); LYMPH # 0.9 10^3/uL (1.5-5.0); LYMPH % 7.3 % (24.0-44.0); MEAN CORPUSCULAR HEMOGLOBIN 27.5 pg (27.0-33.0); MEAN CORPUSCULAR HGB CONC 29.2 g/dl (32.0-36.5); MEAN CORPUSCULAR VOLUME 94.2 fl (80.0-96.0); MONO % 8.3 % (2.0-8.0); NEUTROPHILS # 9.7 10^3/uL (1.5-8.5); NEUTROPHILS % 82.9 % (36.0-66.0); PLATELET COUNT, AUTOMATED 438 10^3/uL (150-450); RED BLOOD COUNT 3.13 10^6/uL (4.00-5.40); WHITE BLOOD COUNT 11.7 10^3/uL (4.0-10.0)
[2020-05-06 05:42] LABS: BLOOD UREA NITROGEN 32 MG/DL (7-18); C REACTIVE PROTEIN QUANTITATIV 7.54 MG/DL (0.00-0.30); CALCIUM LEVEL 8.1 MG/DL (8.8-10.2); CARBON DIOXIDE LEVEL 31 MEQ/L (21-32); CHLORIDE LEVEL 107 MEQ/L (98-107); CREATININE FOR GFR 0.25 MG/DL (0.55-1.30); GLOMERULAR FILTRATION RATE > 60.0 (>39); GLUCOSE, FASTING 105 MG/DL (70-100); MAGNESIUM LEVEL 1.8 MG/DL (1.8-2.4); POTASSIUM SERUM 4.3 MEQ/L (3.5-5.1); SODIUM LEVEL 142 MEQ/L (136-145)
[2020-05-06] MEDS: SUCRALFATE SUSP 1GM/10ML UD PO SCH ×4 (06:00→23:58)
[2020-05-06 06:33] LABS: ABG HCO3 31.3 MEQ/L (22.0-26.0); ABG O2 SATURATION 99.7 % (95.0-99.0); ABG PARTIAL PRESSURE CO2 62.1 mmHg (35.0-45.0); ABG PARTIAL PRESSURE O2 166.8 mmHg (75.0-100.0); ABG STANDARD HCO3 28.1 MEQ/L (22.0-26.0); ABG TOTAL CO2 33.2 MEQ/L (23.0-31.0)
[2020-05-06] MEDS: IPRATROPIUM 0.5MG/ALBUTEROL 2.5MG INH SOL UD 3ML (DUONEB) NEB SCH ×4 (07:27→19:55)
--- NOTE | 2020-05-06 08:34 | IPN ---
PROGRESS NOTE DATE: 05/05/2020 Dictated by Palmer Sams DO on behalf of attending physician Tayler Vicente MD. SUBJECTIVE: Ms. Bledsoe is a 74-year-old female whom the pulmonary service had been following earlier during this admission and subsequently signed off a few days prior. Ms. Bledsoe is currently trach and noninvasive ventilator-dependent due to a suspected progressive neuromuscular disorder, most likely amyotrophic lateral sclerosis. Around 10 p.m. yesterday evening, she became quite tachypneic with respiratory rates around 30, as well as tachycardic (HRs in the 110s), and was desaturating into the 60s while receiving noninvasive positive pressure ventilation in the form of BiLevel/BiPAP. On speaking with nursing, they mentioned that over the past couple of day shifts, she would have sporadic episodes where she would desaturate into the 60s. These episodes were owed to a loose or poor connection between the trach tube and the ventilator tube. She would also have periodic mucous plugging and require saline lavage and suctioning. Around 10 p.m. last evening, respiratory therapy attended to the patient and added an extended plastic connector, which has helped keep the connection between the trach and the ventilator tube in place. Due to her tachycardia and increased demand with the BiLevel, she was switched from an FiO2 setting of 21% to 60%. The pulmonary service (in the form of Dr. Vicente) was subsequently contacted for further medical management of Ms. Bledsoe. Of note related to the BiLevel machine, her inspiratory pressure setting remained at 15 and her expiratory pressure setting remained at 5. Dr. Vicente ordered a chest x-ray, which was at 1:30 a.m. in the otr company driver of 05/05, which was not completed until 7 a.m. this morning. This was the first chest x-ray since Sunday 04/30. There did not appear to be any significant new focal infiltrate on chest x-ray and potentially a borderline mild infiltrate over the right cardiophrenic area. Dr. Vicente also ordered chest PT overnight, as well as saline nebulizers q4h and an ABG. The ABG was done at 6 a.m. this morning and showed some CO2 retention and respiratory acidosis. Upon speaking with the hospitalist service and going through their notes, the current thinking is that Ms. Bledsoe will be discharged home on a Trilogy ventilator, which is a specific type of bilevel NIPPV with AVAPs mode. The patient's family, in the form of two daughters and a son, have come in to see her over the past few days and learned how to work said BiLevel ventilator machine. In speaking with nursing, outside of her respiratory situation, she continues to have tube feeds administered and per report there were no residuals this morning nor were there any overnight. OBJECTIVE: VITAL SIGNS: Temperature of 97.3, heart rate of 59, respiratory rate of 20, blood pressure 164/74 with oxygen saturation of 100% on the BiLevel noninvasive ventilation with a current FiO2 setting of 55% with an inspiratory positive airway pressure of 15 and expiratory positive airway pressure of 5. GENERAL: Elderly female wearing a trach attached to a noninvasive ventilator. She is nonverbal, responding only with head movements and/or written word, but she replies appropriately to all of our questions and commands. She appears to be working somewhat harder to breathe with the BiPAP today versus when we last saw her at the end of last week. HEENT: Normocephalic, atraumatic. Noninjected, anicteric sclerae. Pupils are equal, round, reactive to light, and accommodation bilaterally. There is some mild conjunctival pallor. Mucous membranes are moderately dry. There appears to be some secretions that we subsequently suctioned. NECK: No lymphadenopathy appreciated. There is the trach in place attached to BiLevel ventilator. CARDIOVASCULAR: Borderline bradycardic rate, regular rhythm. Normal S1, S2. With her rhonchi and the background ambient nose of the BiLevel machine, it is difficult to accurately assess for murmurs or rubs, but none were readily apparent upon auscultation. 2+ radial pulses bilaterally. RESPIRATORY: The patient is on noninvasive BiLevel ventilation via connection with trach. Does appear to be working mildly to moderately more to breathe than she did when the pulmonary service last saw her. There remain bilateral rhonchi somewhat more so apparent on the right lung versus the left. There is no significant wheezing and no significant crackles appreciated. There is symmetric chest expansion. GASTROINTESTINAL: There remains a PEG tube in place in the upper central abdomen. There does not appear to be surrounding erythema, induration, or discharge from the tube insertion site. There is tenderness of the left lower quadrant. There is no rigidity appreciated. There is normoactive bowel sounds throughout. NEUROLOGIC: The patient is nonverbal, responding appropriately to all questions and commands via written word or head movement. There is right upper extremity hemiparesis, as well as bilateral lower extremity paresis. EXTREMITIES: As mentioned, the patient is not moving the lower extremities or right upper extremity. There is some bruising over bilateral forearms, which has been present during previous exams. 2+ radial pulses bilaterally. The patient is wearing bilateral pneumatic devices on the lower extremities. GENITOURINARY: There is a Simmons catheter in place that has drained approximately 50 mL at this point of light yellow urine since it was last drained. SKIN: Deferred exam today of her sacral pressure ulcer. LABORATORY DATA: WBC 6.3, hemoglobin 9.5, platelet count of 324,000. Sodium 143, potassium 4.0, chloride 105, bicarb 31, BUN 20, creatinine 0.27 with a calculated GFR greater than 60%. Serum glucose 104. Total bilirubin 0.1, total protein 6.3, albumin 1.7. There was an ABG drawn this morning at 6 a.m. with the following result: PH 7.317, pCO2 53, pO2 of 164. A 24-hour input of 840 mL with a 24-hour output of 950 mL with a net 24-hour negative of 110 mL. She has also received 480 mL of tube feeds in the past 24 hours. IMAGING DATA: Recent imaging chest x-ray this morning showed tracheostomy tube and left-sided PICC line. As before, there is some patchy perihilar atelectasis or infiltrates bilaterally, but no definite right lung effusion. No floridalma edema. Retrocardiac left lower lobe density versus suggesting chronic atelectasis and/or infiltrate with possible effusion. This was the dictated impression from the study. ASSESSMENT AND PLAN: 1. Respiratory failure secondary to a primary ventilatory failure due to suspected underlying progressive neuromuscular disease (most likely amyotrophic lateral sclerosis). At this point, the patient does appear to be requiring more support to breathe, which is a change from when we last saw her five days ago. As such, we have increased the BiLevel noninvasive ventilation inspiratory pressure setting to 18 from 15, and the expiratory setting to 6 from 5. With this increased demand, she is not ready to be discharged home at this time. She also was retaining CO2 manifesting as respiratory acidosis on ABG this morning. She does not have a great cough reflex at this time and certainly appears to have some mucous building up both in the oropharynx, as well as in the lungs and trach tube. Due to all of these factors, the increased work of breathing, as well as now the increasing CO2 retention, there is a very high risk that she will develop a tracheobronchitis that potentially could manifest into pneumonia. We suggest consideration of ABx coverage if her white count continues to go up. In addition to covering with the antibiotics, we also suggest getting a sputum culture. The chest x-ray today may be lagging behind where she currently is as far as infiltrates. The tracheobronchitis picture usually manifests with increased secretions and fever and progresses on to pneumonia - - all due to mucous buildup, which she is at a very high risk for. As discussed in the subjective, we added saline nebulizers every four hours, as well as chest PT. We did find it was somewhat difficult to suction her through the trach with this new connector that respiratory therapy added, so we took that out and subsequently suctioned off some mucous. We had a long, floridalma discussion with Nedra today, going over the significant requirements that would be needed to be executed by her family should she go home and have the trach and ventilator there. We mentioned how here in the hospital, she has 24/7 trained professionals both nursing, respiratory therapy and if needed physicians, all ready to respond to any medical issues. We extensively covered how much of a workload would be placed on her family. She vehemently continues to state that she is going home, that her family can take care of her, and that somebody can be up at all times of the day. We have spoken with her hospitalist physician, Dr. Middleton, who also reports that he had a long talk today with Nedra over the same things. He is in agreement that it is very risky to send her home. Dr. Middleton tried to advocate for machine long goods helper acute care, but reported she vehemently denied this option. Dr. Middleton mentioned that he would try to talk to the family about all of the risks associated with her home care and to see if they may be comfortable being responsible for all the demands. 2. Decreased creatinine. As discussed on prior pulmonary service documentation, this has been relatively stable around 0.3 creatinine and is most likely a manifestation of the muscle breakdown and lack of muscle mass due to her underlying neuromuscular disease. Due to less muscle, there is less muscle breakdown and therefore, less creatinine. 3. Suspected progressive neuromuscular disorder, most likely amyotrophic lateral sclerosis. As mentioned above, she is now dependent on trach and ventilation. She remains mentally intact, alert and oriented x3, and is able to answer all of our questions and commands, but still vehemently denies any other option other than going home and having her family care for her 01/10. The primary hospitalist will be reaching out to her family to share his concerns and all that will be involved in her care, to see whether or not they will still consider home placement an option versus potentially machine long goods helper acute care setting. 4. Deep vein thrombosis (DVT) prophylaxis. She is receiving her Eliquis 5 mg twice a day through the percutaneous endoscopic gastrostomy (PEG) tube. This is due to a history of B/L DVT s/p IVC filter. 5. Gastrointestinal prophylaxis. Omeprazole Code status Full code I, Tayler Vicente, have conducted an independent examination and history of the patient and agree with the plan as detailed by the resident and discussed during rounds. AMBROCIO
[2020-05-06 08:42] LABS: FERRITIN 207 NG/ML (8-252); IRON (FE) 13 UG/DL (50-170); PERCENT SATURATION 5.8 % (13.2-45.0); TOTAL IRON BINDING CAPACITY 226 UG/DL (250-450)
[2020-05-06] MEDS: APIXABAN 5 MG TAB (ELIQUIS) PEG SCH ×2 (08:52→22:03)
[2020-05-06] MEDS: OMEPRAZOLE SUSPENSION 20MG 10ML ORAL SYRINGE PEG SCH (08:52)
[2020-05-06] MEDS: guaiFENesin SYRUP 200 MG/10 ML UDC PO SCH ×3 (08:52→22:02)
[2020-05-06] MEDS: AUGMENTIN 875 MG TAB PO SCH ×2 (08:52→22:03)
[2020-05-06] MEDS: NEUTRA-PHOS 1.5 GM PACKET PO SCH (08:52)
[2020-05-06] MEDS: NYSTATIN 100,000 UNITS/GM TOPICAL PWD 15 GM TOP SCH ×2 (08:53→22:04)
[2020-05-06] MEDS: CHLORHEXIDINE GLUCONATE 0.12 % 15ML UDC (PERIDEX ORAL RINSE) MT SCH ×2 (08:55→22:03)
[2020-05-06] MEDS ORDERED: NON-FORMULARY 1 EA EA PEG SCH (09:00)
[2020-05-06 09:23] LABS: FOLATE 5.7 NG/ML (>5.4); VITAMIN B12 LEVEL 634 PG/ML (247-911)
--- NOTE | 2020-05-06 12:26 | IPNPDOC ---
Text Note Date of Service The patient was seen on 05/06/20. NOTE Subjective: Patient is a 74-year-old female with a PMHx of HTN, DLP, Hx of DVT (s/p IVC on Eliquis), Sacral decubitus ulcer, Suspected neurologic disease (possible ALS) presented to [facility] for dysphagia patient's hospital course was complicated with acute respiratory failure for which patient was intubated and mechanically ventilated. She ultimately received a tracheostomy and PEG tube placement. Patient was seen and examined at the bedside. Respiratory was in the room and performing chest PT. Patient has had increased mucous secretions overnight. Denies chest pain, abdominal pain, or diarrhea. Simmons catheter is present. Yesterday had a discussion with patient and her daughter, Tammie; patient has now decided that she is willing to consider placement to a long-term acute care facility. Objective: Vitals (See below) General: Patient is laying in bed, not appear to be in any distress, is awake, alert and oriented. Chest PT vest is in place HEENT: Normocephalic and atraumatic; Tracheostomy noted connected to BiPAP CVS: +S1S2 Lungs: Improved aeration this morning. Diffuse rhonchi, no wheezing or crackles Abdomen: PEG tube noted, nondistended, soft, nontender Extremities: Lower extremities are without any edema Assessment and plan: Acute respiratory failure - possibly 2/2 ALS - Overnight patient required continuous suctioning and lysis of her mucous plugging - s/p Tracheostomy 04/29/2020 - Will likely require long-term ventilator - c/w DuoNeb / Hypertonic saline / Chest PT / Mucinex - Pulmonology on consultation Leukocytosis - possibly 2/2 tracheal bronchitis, less likely 2/2 PNA - CXR 05/05: The tracheostomy tube and left-sided PICC line as before. Retro cardiac left lower lobe density versus suggesting chronic atelectasis and or infiltrate with possible effusion. Some patchy perihilar atelectasis or infiltrates bilaterally. No definite right lung effusion. No floridalma edema. - Sputum culture pending - Procalcitonin noted - CRP trending up - No lactic acidosis - c/w Augmentin (Day#2) Normocytic anemia - BUN has trended up and Hg trended down; suggesting possibility of GI bleed - Stool has not been dark - Iron / B12 / Folate / Reticulocyte workup - Will check stool for occult blood - Will c/w Omeprazole and Carafate - Will trend H&H [id number] ALS - Neurology on consultation; no Riluzole for now Dysphagia with protein calorie malnutrition - s/p PEG tube placement 04/20/2020 - c/w PEG tube feedings; will return back to continuous infusion Hx of DVT - c/w Eliquis Anxiety - c/w Alprazolam PRN GI prophylaxis - c/w PPI and Carafate DVT prophylaxis - c/w full anticoagulation with Eliquis Disposition: - Discussed with daughter; Tammie Ribeiro and patient at the beside; will seek LTAC / 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 facility for long-term care - Advised her that home plan may not be a practical and safe pipe coverer helper solution - I have attempted to call sonGustavo at [phone] and he has not answered his phone after multiple attempts - other daughter has indicated that he will not answer the phone for providers - Family has been made very aware of these concerns of going home on vent and high likelihood of poor outcome if transitioned home Prognosis: Poor Code status: Full code VS,Fishbone, I+O VS, Fishbone, I+O Laboratory Tests 05/06/20 05:08 Vital Signs Date Time Temp Pulse Resp B/P (MAP) Pulse Ox O2 Delivery O2 Flow Rate FiO2 05/06/20 11:00 99 BIPAP/CPAP 40 05/06/20 08:00 96.6 82 19 110/51 (70) I&O- Last 24 Hours up to 6 AM 05/06/20 06:00 Intake Total 2280 ml Output Total 450 ml Balance 1830 ml YUKO WONG MD May 06, 2020 12:26
[2020-05-06 12:35] LABS: HEMATOCRIT 30.8 % (36.0-47.0); HEMOGLOBIN 9.1 g/dl (12.0-15.5)
--- NOTE | 2020-05-06 14:16 | CR ---
PULMONARY SERVICE NOTE DATE: 05/06/2020 HISTORY OF PRESENT ILLNESS: The patient is seen in the Progressive Care Unit. This is hospital day number 23. PHYSICAL EXAMINATION: She is somnolent. Temperature 96, pulse rate 82, respirations 19, blood pressure 101/98. I's&O's for the past 24 hours 1900 in, 450 out, since midnight 680 in, 400 out. General: At bedside she is ill appearing and cachectic. HEENT: Mucosa are dry. Neck: Supple. The tracheostomy site is clean. Heart: Sounds are regular. Lungs: Breath sounds diminished, scattered rhonchi throughout. Abdomen: Soft, G-tube in place. Extremities: Show muscle wasting and flacidity in the left. DIAGNOSTIC STUDIES: Sodium 142, potassium 4.2, chloride 107, CO2 31, BUN 32, creatinine 0.25, glucose 105. White cell count 11.7, hemoglobin down to 8.6, hematocrit 29.5, platelet count 438,000; differential white cell count shows 83% neutrophils. Arterial blood gas shows a pH of 7.32, PCO2 62, PO2 166. On review of microbiology studies her sputum is showing mixed john, culture is pending. IMAGING STUDIES: Chest x-ray from yesterday shows left diaphragmatic elevation. MEDICATIONS: Reviewed. 1. This is day number 2 of Augmentin. 2. She is receiving DuoNeb four times a day. 3. She is receiving 3% saline every 4 hours with aggressive suctioning. 4. She is receiving omeprazole for ulcer prophylaxis. REVIEW OF PREVIOUS NOTES: On review of notes from consultations performed during her hospitalization she was seen by neurology remotely and their impression is that she is suffering from progressive neuromuscular disease from ALS. ASSESSMENT AND PLAN: 1. The primary problem requiring evaluation is acute on chronic respiratory failure: As she has respiratory failure secondary to a progressive neuromuscular disease (ALS) she will require more minute ventilation support. I will change her mode to ST mode and increase the rate to 16. 2. Mucus plugging: The patient is on aerosols, nebulized therapy and aggressive suctioning. Likely mucus plugging will continue to be an issue for her. OVERALL PROGNOSIS: Poor given her progressive neuromuscular deterioration. MTDD
[2020-05-06 18:29] LABS: HEMATOCRIT 34.8 % (36.0-47.0); HEMOGLOBIN 10.3 g/dl (12.0-15.5)
[2020-05-07] VITALS (11 sets, daily range): BP systolic 100–150; BP diastolic 52–82; O2SAT 83–100
[2020-05-07] MEDS: IPRATROPIUM 0.5MG/ALBUTEROL 2.5MG INH SOL UD 3ML (DUONEB) NEB PRN ×2 (00:16→03:35)
[2020-05-07] MEDS: NS 1,000 ML IV SCH ×2 (01:45→21:28)
[2020-05-07] MEDS: SODIUM CHLORIDE HYPERTONIC 3% 15ML NEB SOL INH SCH ×5 (03:35→19:33)
[2020-05-07 05:47] LABS: BASO # 0.1 10^3/uL (0.0-0.2); BASO % 0.4 % (0.0-1.0); EOS # 0.1 10^3/uL (0.0-0.5); EOS % 0.6 % (0.0-3.0); HEMATOCRIT 31.2 % (36.0-47.0); HEMOGLOBIN 9.2 g/dl (12.0-15.5); LYMPH # 0.7 10^3/uL (1.5-5.0); LYMPH % 6.2 % (24.0-44.0); MEAN CORPUSCULAR HEMOGLOBIN 27.6 pg (27.0-33.0); MEAN CORPUSCULAR HGB CONC 29.5 g/dl (32.0-36.5); MEAN CORPUSCULAR VOLUME 93.7 fl (80.0-96.0); MONO # 0.9 10^3/uL (0.0-0.8); MONO % 7.6 % (2.0-8.0); NEUTROPHILS # 9.6 10^3/uL (1.5-8.5); NEUTROPHILS % 84.6 % (36.0-66.0); PLATELET COUNT, AUTOMATED 467 10^3/uL (150-450); RED BLOOD COUNT 3.33 10^6/uL (4.00-5.40); WHITE BLOOD COUNT 11.4 10^3/uL (4.0-10.0)
[2020-05-07 06:07] LABS: BLOOD UREA NITROGEN 24 MG/DL (7-18); CALCIUM LEVEL 8.7 MG/DL (8.8-10.2); CARBON DIOXIDE LEVEL 31 MEQ/L (21-32); CHLORIDE LEVEL 106 MEQ/L (98-107); CREATININE FOR GFR 0.29 MG/DL (0.55-1.30); GLOMERULAR FILTRATION RATE > 60.0 (>39); GLUCOSE, FASTING 150 MG/DL (70-100); MAGNESIUM LEVEL 1.9 MG/DL (1.8-2.4); POTASSIUM SERUM 4.2 MEQ/L (3.5-5.1); SODIUM LEVEL 138 MEQ/L (136-145)
[2020-05-07] MEDS: SUCRALFATE SUSP 1GM/10ML UD PO SCH ×3 (06:48→19:39)
[2020-05-07] MEDS: SODIUM CHLORIDE 0.9% INJ 10 ML SYR IV SCH ×2 (06:49→19:40)
[2020-05-07 07:02] LABS: ABG BASE EXCESS 4.7 (-2.0-2.0); ABG HCO3 33.1 MEQ/L (22.0-26.0); ABG O2 SATURATION 95.2 % (95.0-99.0); ABG PARTIAL PRESSURE O2 78.8 mmHg (75.0-100.0); ABG STANDARD HCO3 28.7 MEQ/L (22.0-26.0); ABG TOTAL CO2 35.4 MEQ/L (23.0-31.0); ABG pH (ARTERIAL) 7.273 UNITS (7.350-7.450)
[2020-05-07 07:06] LABS: ABG PARTIAL PRESSURE CO2 73.3 mmHg (35.0-45.0)
[2020-05-07] MEDS: IPRATROPIUM 0.5MG/ALBUTEROL 2.5MG INH SOL UD 3ML (DUONEB) NEB SCH ×4 (07:50→19:33)
--- NOTE | 2020-05-07 08:47 | REP ---
INDICATION: Hypoxia / Tachypnea. COMPARISON: 05/05/2020. TECHNIQUE: SINGLE PORTABLE AP VIEW OF THE CHEST WAS PERFORMED. FINDINGS: Left arm PICC line and tracheostomy tube appear unchanged. Heart and mediastinum are unchanged in appearance.Diffuse bilateral interstitial prominence and left base retrocardiac opacity are unchanged. IMPRESSION: Stable exam. <Electronically signed by James Cordero > 05/07/20 0875
--- NOTE | 2020-05-07 09:03 | IPNPDOC ---
Text Note Date of Service The patient was seen on 05/07/20. NOTE Subjective: Patient is a 74-year-old female with a PMHx of HTN, DLP, Hx of DVT (s/p IVC on Eliquis), Sacral decubitus ulcer, Suspected neurologic disease (possible ALS) presented to [facility] for dysphagia patient's hospital course was complicated with acute respiratory failure for which patient was intubated and mechanically ventilated. She ultimately received a tracheostomy and PEG tube placement. Patient was seen and examined at the bedside. Patient appears to estimate this morning. Overnight she had an episode of hypoxia and increased mucous plugging that required her suctioning. Patient does not appear to be in any acute distr ess this morning. Objective: Vitals (See below) General: Patient is laying in bed, appears comfortable, awake and alert HEENT: Normocephalic and atraumatic; tracheostomy in place connected to BiPAP CVS: +S1S2 Lungs: Appears to be fair bilaterally; rhonchi can be appreciated bilaterally Abdomen: Without distention or tenderness, remains soft. + PEG tube Extremities: No edema noted Imaging: CXR 05/07: Left arm PICC line and tracheostomy tube appear unchanged. Heart and mediastinum are unchanged in appearance.Diffuse bilateral interstitial prominence and left base retrocardiac opacity are unchanged. Assessment and plan: Acute respiratory failure - possibly 2/2 ALS - Additional episodes of hypoxia and mucous plugging yesterday night - s/p Tracheostomy 04/29/2020 - ABG noted; will repeat this morning - Will likely require long-term ventilator - c/w DuoNeb / Hypertonic saline / Chest PT / Mucinex - Pulmonology on consultation Leukocytosis - possibly 2/2 tracheal bronchitis, possibly 2/2 PNA - Improved - Imaging noted above - Sputum culture 05/06: Moderate gram-negative rods, moderate gram-positive rods, few gram-positive cocci in pairs - official result pending - Procalcitonin noted / Lactic acid again negative - CRP has had an increase this morning - Will start Zosyn (Day #1); Will DC Augmentin (Antibiotic day#3) Normocytic anemia - Hg has remained stable - Iron / B12 / Folate - noted - Stool for occult blood - pending - c/w Omeprazole and Carafate ALS - Neurology on consultation; no Riluzole for now Dysphagia with protein calorie malnutrition - s/p PEG tube placement 04/20/2020 - c/w PEG tube feedings; will return back to continuous infusion Hx of DVT - c/w Eliquis Anxiety - c/w Alprazolam PRN GI prophylaxis - c/w PPI and Carafate DVT prophylaxis - c/w full anticoagulation with Eliquis Disposition: - Discussed with daughter on 05/05; Tammie Ribeiro and patient at the beside; will seek LTAC / 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 facility 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 - Advised her that home plan may not be a practical and safe fpc solution - I have attempted to call sonGustavo at [phone] and he has not answered his phone after multiple attempts - other daughter has indicated that he will not answer the phone for providers - Family has been made very aware of these concerns of going home on vent and high likelihood of poor outcome if transitioned home Prognosis: Poor Code status: Full code VS,Fishbone, I+O VS, Fishbone, I+O Laboratory Tests 05/06/20 12:18 05/06/20 18:08 05/07/20 05:25 Vital Signs Date Time Temp Pulse Resp B/P (MAP) Pulse Ox O2 Delivery O2 Flow Rate FiO2 05/07/20 04:00 98.5 102 18 141/62 (88) 100 05/07/20 04:00 40 05/06/20 20:00 BIPAP/CPAP I&O- Last 24 Hours up to 6 AM 05/07/20 06:00 Intake Total 0 ml Output Total 1280 ml Balance -1280 ml YUKO WONG MD May 07, 2020 09:03
[2020-05-07] MEDS: PIPERACILLIN/TAZOBACTAM SOD 3.375 GM in D5W MINI-BAG PLUS 50 ML IV SCH ×3 (09:21→21:27)
[2020-05-07] MEDS: NEUTRA-PHOS 1.5 GM PACKET PO SCH (09:22)
[2020-05-07] MEDS: OMEPRAZOLE SUSPENSION 20MG 10ML ORAL SYRINGE PEG SCH (09:22)
[2020-05-07] MEDS: APIXABAN 5 MG TAB (ELIQUIS) PEG SCH ×2 (09:22→21:28)
[2020-05-07] MEDS: NYSTATIN 100,000 UNITS/GM TOPICAL PWD 15 GM TOP SCH ×2 (09:22→21:27)
[2020-05-07] MEDS: guaiFENesin SYRUP 200 MG/10 ML UDC PO SCH ×3 (09:22→21:00)
[2020-05-07] MEDS: CHLORHEXIDINE GLUCONATE 0.12 % 15ML UDC (PERIDEX ORAL RINSE) MT SCH ×2 (09:23→21:27)
--- NOTE | 2020-05-07 09:36 | CCN ---
PULMONARY CRITICAL CARE NOTE DATE: 05/07/2020 SUBJECTIVE: The patient is seen in the Progressive Care Unit. This is hospital day #24. She remains ventilated via tracheostomy. Her ventilatory status has declined over the past 24 hours on pressure ventilation. Tidal volumes are now diminished into the 200s. The patient is in no obvious distress, however. OBJECTIVE: At bedside, her temperature is 98.5, pulse rate 102, respirations 18, blood pressure 142/62. I and O's over the past 24 hours: 680 in and 920 out. At bedside, she is ill-appearing and cachectic. Her mucosa are moist. Neck is supple. The trach site is clean. There is no adenopathy. No jugular venous distention is obvious. Heart sounds are regular. Breath sounds are coarse and diminished with scattered rhonchi throughout. There is no dullness, subtle fremitus. Abdomen is soft. There is a G-tube in place. Extremities show muscle weakness and atrophy. DIAGNOSTIC STUDIES: Her sodium is 138, potassium is 4.2, chloride 106, CO2 31, BUN 24, creatinine 0.29, glucose 150. White cell count is 11.4, hemoglobin is up to 9.2, hematocrit is up to 31.2, platelet count is 462,000. Arterial blood gases were obtained. The pH was 7.23, pCO2 73, pO2 78, this is on a pressure support mode. C-reactive protein remains elevated at 10.2. Her chest x-ray has been performed, the report is pending but I have reviewed the images and I seen no obvious infiltrate. Indeed, the left lung appears better inflated today than it was on the previous film. On review of her remote notes, she has a history of bilateral DVT, status post inferior vena cava filtration placement, has been on Eliquis since that time. MEDICATIONS: Reviewed and indicate Zosyn has been started, she is on DuoNeb and 3% saline for suctioning. Sputum cultures are showing poly john. ASSESSMENT: 1. Primary problem requiring critical attention today is acute on chronic respiratory failure. Her pCO2 is up, minute ventilation is down, we will change therefore to volume cycling ventilation and recheck arterial blood gases. 2. Progressive neuromuscular disease, likely ALS. I will discuss with the Hospitalist service. 3. History of bilateral DVTs status post inferior vena cava filter on Apixaban, thankfully the hemoglobin is better today. Her condition remains poor and overall prognosis is poor.
[2020-05-07] MEDS: ALPRAZolam 0.25 MG TAB PO PRN ×3 (10:05→21:28)
[2020-05-07 10:25] LABS: ABG BASE EXCESS 7.8 (-2.0-2.0); ABG HCO3 30.9 MEQ/L (22.0-26.0); ABG O2 SATURATION 97.7 % (95.0-99.0); ABG PARTIAL PRESSURE CO2 37.2 mmHg (35.0-45.0); ABG STANDARD HCO3 31.6 MEQ/L (22.0-26.0); ABG pH (ARTERIAL) 7.537 UNITS (7.350-7.450)
[2020-05-07] MEDS ORDERED: ISOVUE-370 76% 100ML VIAL As Ordered ONE (10:59)
[2020-05-07] MEDS: ACETAMINOPHEN TAB 650MG DOSE (2X325MG) PO PRN ×2 (14:24→21:28)
--- NOTE | 2020-05-07 17:27 | REP ---
INDICATION: Dysphagia, aspiration Hypoxia, possible pulmonary embolism.. COMPARISON: 12/25/2019. TECHNIQUE: CT angiogram chest performed following the intravenous administration of 100 cc of Isovue 370. Sagittal and coronal reconstruction images are performed. FINDINGS: Lungs: Scattered patchy infiltrate is seen in the right lower lobe and left upper lobe. There is consolidation of the left lower lobe. There is narrowing of the left mainstem bronchus and its branches. These structures contain material which probably represents secretions. An underlying endobronchial lesion cannot be excluded. Mediastinum: No adenopathy. Pulmonary arteries: No evidence of pulmonary embolism. Exam is limited by motion. Martha: No adenopathy. Axilla: No adenopathy. Pleura: There is a small left pleural effusion. Heart: Not enlarged. Thoracic aorta: No aneurysm or dissection. Upper abdominal structures: Unremarkable. Visualized osseous structures: Unremarkable. A tracheostomy tube is in place. IMPRESSION: No CT evidence of pulmonary embolism. Right lower lobe pulmonary arteries not optimally evaluated due to patient motion. Scattered patchy infiltrate right lower lobe and left upper lobe. Consolidation left lower lobe. There is narrowing of the left mainstem bronchus and more distal bronchioles. These structures contain material which probably represents secretions. An underlying endobronchial lesion cannot be excluded. <Electronically signed by James Cordero > 05/07/20 [id number]
[2020-05-08] VITALS (12 sets, daily range): BP systolic 98–132; BP diastolic 51–81; O2SAT 86–100
[2020-05-08] MEDS: SODIUM CHLORIDE HYPERTONIC 3% 15ML NEB SOL INH SCH ×6 (00:38→20:03)
[2020-05-08] MEDS: PIPERACILLIN/TAZOBACTAM SOD 3.375 GM in D5W MINI-BAG PLUS 50 ML IV SCH ×4 (04:41→21:32)
[2020-05-08] MEDS: SODIUM CHLORIDE 0.9% INJ 10 ML SYR IV SCH ×2 (04:42→18:22)
[2020-05-08] MEDS: SUCRALFATE SUSP 1GM/10ML UD PO SCH ×4 (04:43→18:20)
[2020-05-08 05:47] LABS: BASO # 0.1 10^3/uL (0.0-0.2); BASO % 0.8 % (0.0-1.0); EOS # 0.2 10^3/uL (0.0-0.5); EOS % 2.2 % (0.0-3.0); HEMATOCRIT 26.6 % (36.0-47.0); LYMPH # 0.9 10^3/uL (1.5-5.0); LYMPH % 12.3 % (24.0-44.0); MEAN CORPUSCULAR HEMOGLOBIN 27.3 pg (27.0-33.0); MEAN CORPUSCULAR HGB CONC 30.1 g/dl (32.0-36.5); MEAN CORPUSCULAR VOLUME 90.8 fl (80.0-96.0); MONO # 0.7 10^3/uL (0.0-0.8); MONO % 9.2 % (2.0-8.0); NEUTROPHILS # 5.6 10^3/uL (1.5-8.5); PLATELET COUNT, AUTOMATED 439 10^3/uL (150-450); RED BLOOD COUNT 2.93 10^6/uL (4.00-5.40); WHITE BLOOD COUNT 7.4 10^3/uL (4.0-10.0)
[2020-05-08 06:07] LABS: BLOOD UREA NITROGEN 30 MG/DL (7-18); C REACTIVE PROTEIN QUANTITATIV 8.26 MG/DL (0.00-0.30); CARBON DIOXIDE LEVEL 29 MEQ/L (21-32); CHLORIDE LEVEL 106 MEQ/L (98-107); CREATININE FOR GFR 0.38 MG/DL (0.55-1.30); GLOMERULAR FILTRATION RATE > 60.0 (>39); GLUCOSE, FASTING 106 MG/DL (70-100); MAGNESIUM LEVEL 1.7 MG/DL (1.8-2.4); POTASSIUM SERUM 3.5 MEQ/L (3.5-5.1); SODIUM LEVEL 141 MEQ/L (136-145)
[2020-05-08] MEDS: ALPRAZolam 0.25 MG TAB PO PRN ×2 (06:18→21:32)
[2020-05-08] MEDS: ACETAMINOPHEN TAB 650MG DOSE (2X325MG) PO PRN ×3 (06:18→21:33)
[2020-05-08] MEDS: IPRATROPIUM 0.5MG/ALBUTEROL 2.5MG INH SOL UD 3ML (DUONEB) NEB SCH ×4 (07:41→20:03)
[2020-05-08] MEDS: NEUTRA-PHOS 1.5 GM PACKET PO SCH (08:50)
[2020-05-08] MEDS: APIXABAN 5 MG TAB (ELIQUIS) PEG SCH ×2 (08:50→21:33)
[2020-05-08] MEDS: OMEPRAZOLE SUSPENSION 20MG 10ML ORAL SYRINGE PEG SCH (08:50)
[2020-05-08] MEDS: NYSTATIN 100,000 UNITS/GM TOPICAL PWD 15 GM TOP SCH ×2 (08:52→21:33)
[2020-05-08] MEDS: guaiFENesin SYRUP 200 MG/10 ML UDC PO SCH ×3 (08:52→21:33)
--- NOTE | 2020-05-08 08:52 | IPNPDOC ---
Text Note Date of Service The patient was seen on 05/08/20. NOTE Subjective: Patient is a 74-year-old female with a PMHx of HTN, DLP, Hx of DVT (s/p IVC on Eliquis), Sacral decubitus ulcer, Suspected neurologic disease (possible ALS) presented to [facility] for dysphagia patient's hospital course was complicated with acute respiratory failure for which patient was intubated and mechanically ventilated. She ultimately received a tracheostomy and PEG tube placement. Patient was seen and examined at the bedside. Patient was seen laying in bed, reports that she feels relatively fine, in no acute distress. Denies any pain. Objective: Vitals (See below) General: Patient is laying in bed, appears comfortable, just woke up from sleep, is awake and alert HEENT: Atraumatic and normocephalic, trach connected to vent CVS: +S1S2 Lungs: There appears to be fair air entry bilaterally without any evidence of wheezing or, crackles, rhonchi appreciated bilaterally Abdomen: No distention or tenderness; positive PEG Extremities: No edema noted Imaging: CXR 05/07: Left arm PICC line and tracheostomy tube appear unchanged. Heart and mediast inum are unchanged in appearance.Diffuse bilateral interstitial prominence and left base retrocardiac opacity are unchanged. Assessment and plan: Acute respiratory failure - possibly 2/2 ALS - Overnight patient did not experience any further episodes of mucous plugging - s/p Tracheostomy 04/29/2020 - Will likely require long-term ventilator - c/w DuoNeb / Hypertonic saline / Chest PT / Mucinex - Pulmonology on consultation s/p Leukocytosis - possibly 2/2 PNA, possibly 2/2 tracheal bronchitis - Resolved - Remains afebrile - Imaging noted above - Sputum culture 05/06: Moderate gram-negative rods, moderate gram-positive rods, few gram-positive cocci in pairs - official result pending - Procalcitonin noted / No lactic acidosis - CRP improved - c/w Zosyn (Day #2); Will DC Augmentin (Antibiotic day#4) Normocytic anemia - Hg again has a slight drop - possibly 2/2 dilutional etiology? - Will repeat H&H [id number] - Iron / B12 / Folate - noted - Stool for occult blood - pending - c/w Omeprazole and Carafate ALS - Neurology on consultation; no Riluzole for now Dysphagia with protein calorie malnutrition - s/p PEG tube placement 04/20/2020 - c/w PEG tube feedings with continuous infusion Hx of DVT - c/w Eliquis Anxiety - c/w Alprazolam PRN GI prophylaxis - c/w PPI and Carafate DVT prophylaxis - c/w full anticoagulation with Eliquis Disposition: - Discussed with daughter on 05/05; Tammie Ribeiro and patient at the beside; will seek LTAC / 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 facility for half-way care - Advised her that home plan may not be a practical and safe terminologist solution - I have attempted to call sonGustavo at [phone] and he has not answered his phone after multiple attempts - other daughter has indicated that he will not answer the phone for providers - Family has been made very aware of these concerns of going home on vent and high likelihood of poor outcome if transitioned home Prognosis: Poor Code status: Full code VS,Fishbone, I+O VS, Fishbone, I+O Laboratory Tests 05/08/20 05:23 Vital Signs Date Time Temp Pulse Resp B/P (MAP) Pulse Ox O2 Delivery O2 Flow Rate FiO2 05/08/20 08:00 98.0 85 19 98/54 (69) 97 Ventilator 05/08/20 07:45 45 I&O- Last 24 Hours up to 6 AM 05/08/20 06:00 Intake Total 3510 ml Output Total 1240 ml Balance 2270 ml YUKO WONG MD May 08, 2020 08:52
[2020-05-08] MEDS: CHLORHEXIDINE GLUCONATE 0.12 % 15ML UDC (PERIDEX ORAL RINSE) MT SCH ×2 (08:53→21:00)
[2020-05-08] MEDS ORDERED: MAG SULF 1GM/100ML (MAG RUN) 1 GM in IV 1 EA IV ONE (09:00)
--- NOTE | 2020-05-08 10:35 | CCN ---
PULMONARY CRITICAL CARE SERVICE NOTE DATE: 05/04/2020 SUBJECTIVE: The patient is seen in the progressive care unit resting reasonably comfortably on mechanical ventilation without complaints of dyspnea. Nursing has been successful at suctioning moderate to large amounts of purulent secretions today. OBJECTIVE: Temperature 98, pulse rate 85, respirations 19, blood pressure 98/54. She is ill-appearing and cachectic. Mucosa is moist. Neck is supple Tracheostomy site is clean. There are sutures in place. Heart sounds are regular without appreciable murmur. Breath sounds diminished with coarse scattered rhonchi. Abdomen is soft. Gastrostomy (G) tube in place. DIAGNOSTIC STUDIES: Her white cell count is down to 7.4, hemoglobin is down somewhat at 8, hematocrit 26.6, platelet count is 439. Differential white cell count shows 75% neutrophils. The electrolytes are sodium 141, potassium 3.5, chloride 106, CO2 29, BUN 30, creatinine 0.38, glucose 106, calcium is 8, magnesium 1.7. C-reactive protein is down at 8.26 MICROBIOLOGY STUDIES: Reviewed. Sputum culture, which showed polyflora is now growing pseudomonas with normal john sensitive to aminoglycosides, quinolones and extended spectrum cephalosporins. MEDICATIONS: Reviewed. This is day #2 of Zosyn. She is receiving omeprazole for ulcer prophylaxis, Duo-Nebs and Neutra-Phos. ASSESSMENT: The patient's primary problem is acute on chronic respiratory failure with hypoxemia. She had a significant interval of hypoxemia yesterday, which is now responding. CT angiogram showed no evidence of pulmonary embolism. Possibly this was related to mucus plugging. Her oxygen need is now down to 45%. Now clearance of secretions with mucus plugging, patient is responding to pulmonary toilet. I will remove the sutures from the tracheostomy site as they have been in place for 10 days. This will allow approved manipulation of the tracheostomy and better retrieval of secretions. Pseudomonas infection: I suspect this may be colonization, as there is also normal john present on the culture and her clinical presentation is not a toxic one. Nonetheless, she is on day #2 of piperacillin and I recommend continuing it. Progressive neuromuscular disease/ALS: This is poor. Will continue with supportive care.
[2020-05-08 12:07] LABS: HEMATOCRIT 26.9 % (36.0-47.0); HEMOGLOBIN 8.3 g/dl (12.0-15.5)
[2020-05-08] MEDS: CHOLESTYRAMINE 4 GM PWD PKT PO SCH ×2 (16:58→21:32)
[2020-05-08 18:12] LABS: HEMATOCRIT 27.4 % (36.0-47.0); HEMOGLOBIN 8.3 g/dl (12.0-15.5)
[2020-05-09] VITALS (21 sets, daily range): BP systolic 91–140; BP diastolic 44–78; O2SAT 97–99
[2020-05-09] MEDS: SODIUM CHLORIDE HYPERTONIC 3% 15ML NEB SOL INH SCH ×5 (00:07→20:40)
[2020-05-09 00:12] LABS: HEMATOCRIT 25.7 % (36.0-47.0); HEMOGLOBIN 7.7 g/dl (12.0-15.5)
[2020-05-09] MEDS: PIPERACILLIN/TAZOBACTAM SOD 3.375 GM in D5W MINI-BAG PLUS 50 ML IV SCH (02:31)
[2020-05-09 04:52] LABS: BASO # 0.1 10^3/uL (0.0-0.2); BASO % 0.7 % (0.0-1.0); EOS # 0.5 10^3/uL (0.0-0.5); EOS % 5.8 % (0.0-3.0); HEMATOCRIT 26.7 % (36.0-47.0); HEMOGLOBIN 8.2 g/dl (12.0-15.5); LYMPH # 0.7 10^3/uL (1.5-5.0); LYMPH % 7.8 % (24.0-44.0); MEAN CORPUSCULAR HEMOGLOBIN 27.8 pg (27.0-33.0); MEAN CORPUSCULAR HGB CONC 30.7 g/dl (32.0-36.5); MEAN CORPUSCULAR VOLUME 90.5 fl (80.0-96.0); MONO # 0.8 10^3/uL (0.0-0.8); MONO % 9.9 % (2.0-8.0); NEUTROPHILS # 6.3 10^3/uL (1.5-8.5); NEUTROPHILS % 75.1 % (36.0-66.0); PLATELET COUNT, AUTOMATED 491 10^3/uL (150-450); RED BLOOD COUNT 2.95 10^6/uL (4.00-5.40); WHITE BLOOD COUNT 8.4 10^3/uL (4.0-10.0)
[2020-05-09 05:10] LABS: BLOOD UREA NITROGEN 20 MG/DL (7-18); C REACTIVE PROTEIN QUANTITATIV 8.97 MG/DL (0.00-0.30); CALCIUM LEVEL 7.9 MG/DL (8.8-10.2); CARBON DIOXIDE LEVEL 30 MEQ/L (21-32); CHLORIDE LEVEL 106 MEQ/L (98-107); CREATININE FOR GFR 0.27 MG/DL (0.55-1.30); GLOMERULAR FILTRATION RATE > 60.0 (>39); GLUCOSE, FASTING 116 MG/DL (70-100); POTASSIUM SERUM 3.6 MEQ/L (3.5-5.1); SODIUM LEVEL 139 MEQ/L (136-145)
[2020-05-09] MEDS: SUCRALFATE SUSP 1GM/10ML UD PO SCH ×4 (06:35→17:13)
[2020-05-09] MEDS: SODIUM CHLORIDE 0.9% INJ 10 ML SYR IV SCH ×2 (06:35→17:14)
[2020-05-09] MEDS: IPRATROPIUM 0.5MG/ALBUTEROL 2.5MG INH SOL UD 3ML (DUONEB) NEB SCH ×4 (07:23→20:40)
--- NOTE | 2020-05-09 08:12 | IPNPDOC ---
Text Note Date of Service The patient was seen on 05/09/20. NOTE Subjective: Patient is a 74-year-old female with a PMHx of HTN, DLP, Hx of DVT (s/p IVC on Eliquis), Sacral decubitus ulcer, Suspected neurologic disease (possible ALS) presented to [facility] for dysphagia patient's hospital course was complicated with acute respiratory failure for which patient was intubated and mechanically ventilated. She ultimately received a tracheostomy and PEG tube placement. Patient was seen and examined at the bedside. Patient does not appear to be in any acute distress. Patient appears comfortable and denies any pain. Reports she has had an uneventful evening. Objective: Vitals (See below) General: Laying in bed, appears comfortable, awake and alert HEENT: NC, AT, trached and connected to vent CVS: +S1S2 Lungs: Air entry is fair bilaterally without any appreciated, crackles, wheezing or rhonchi Abdomen: ND, NT, +PEG Extremities: -Edema Imaging: CXR 05/07: Left arm PICC line and tracheostomy tube appear unchanged. Heart and medias tinum are unchanged in appearance.Diffuse bilateral interstitial prominence and left base retrocardiac opacity are unchanged. Assessment and plan: Acute respiratory failure - possibly 2/2 ALS - Overnight patient did not experience any further episodes of mucous plugging - s/p Tracheostomy 04/29/2020 - Will get ABG today - c/w DuoNeb / Hypertonic saline / Chest PT / Mucinex - Pulmonology on consultation - Discussed with family, patient will likely require long-term acute care facility to manage her current condition s/p Leukocytosis - possibly 2/2 PNA, possibly 2/2 tracheal bronchitis - Afebrile / hemodynamically stable - Imaging noted above - Sputum culture 05/06: Pseudomonas - Procalcitonin noted / No lactic acidosis - CRP stable - Will start Meropenem (Day #1); Will DC Zosyn (Day #3); Will DC Augmentin (Antibiotic day#5) Normocytic anemia - Hg has remained stable - Iron / B12 / Folate - noted - Stool for occult blood - pending - c/w Omeprazole and Carafate Loose bowel movements - Has not experience any fevers - Physical without any abdominal discomfort - c/w Rectal tube / Zinc oxide for skin protection - c/w Cholestyramine ALS - Neurology on consultation; no Riluzole for now Dysphagia with protein calorie malnutrition - s/p PEG tube placement 04/20/2020 - c/w PEG tube feedings with continuous infusion Hx of DVT - c/w Eliquis Anxiety - c/w Alprazolam PRN GI prophylaxis - c/w PPI and Carafate DVT prophylaxis - c/w full anticoagulation with Eliquis Disposition: - Discussed with daughter on 05/05; Tammie Ribeiro and patient at the beside; will seek LTAC / 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 facility for chcf care - Advised her that home plan may not be a practical and safe chcf solution - I have attempted to call son, Gustavo at [phone] and he has not answered his phone after multiple attempts - other daughter has indicated that he will not answer the phone for providers - Family has been made very aware of these concerns of going home on vent and high likelihood of poor outcome if transitioned home Prognosis: Poor Code status: Full code VS,Fishbone, I+O VS, Fishbone, I+O Laboratory Tests 05/08/20 11:49 05/08/20 17:50 05/08/20 23:57 05/09/20 04:36 Vital Signs Date Time Temp Pulse Resp B/P (MAP) Pulse Ox O2 Delivery O2 Flow Rate FiO2 05/09/20 07:39 97.7 91 18 101/54 (70) 100 Ventilator 05/09/20 07:27 60 I&O- Last 24 Hours up to 6 AM 05/09/20 06:00 Intake Total 360 ml Output Total 600 ml Balance -240 ml YUKO WONG MD May 09, 2020 08:12
[2020-05-09] MEDS: OMEPRAZOLE SUSPENSION 20MG 10ML ORAL SYRINGE PEG SCH (08:55)
[2020-05-09] MEDS: MEROPENEM INJ 1 GM in IV 1 EA IV SCH ×2 (08:55→16:00)
[2020-05-09] MEDS: ACETAMINOPHEN TAB 650MG DOSE (2X325MG) PO PRN ×2 (08:56→16:00)
[2020-05-09] MEDS: CHLORHEXIDINE GLUCONATE 0.12 % 15ML UDC (PERIDEX ORAL RINSE) MT SCH ×2 (08:56→21:40)
[2020-05-09] MEDS: ALPRAZolam 0.25 MG TAB PO PRN (08:56)
[2020-05-09] MEDS: NYSTATIN 100,000 UNITS/GM TOPICAL PWD 15 GM TOP SCH ×2 (08:57→21:39)
[2020-05-09] MEDS: CHOLESTYRAMINE 4 GM PWD PKT PO SCH ×3 (08:57→21:43)
[2020-05-09] MEDS: APIXABAN 5 MG TAB (ELIQUIS) PEG SCH ×2 (08:57→21:39)
[2020-05-09] MEDS: NEUTRA-PHOS 1.5 GM PACKET PO SCH (08:57)
[2020-05-09 09:43] LABS: ABG BASE EXCESS 4.9 (-2.0-2.0); ABG HCO3 28.7 MEQ/L (22.0-26.0); ABG O2 SATURATION 99.7 % (95.0-99.0); ABG PARTIAL PRESSURE CO2 38.9 mmHg (35.0-45.0); ABG PARTIAL PRESSURE O2 156.3 mmHg (75.0-100.0); ABG TOTAL CO2 29.9 MEQ/L (23.0-31.0); ABG pH (ARTERIAL) 7.486 UNITS (7.350-7.450)
[2020-05-09] MEDS: SODIUM CHLORIDE 0.9% INJ 10 ML SYR IV PRN (10:08)
[2020-05-09] MEDS: BOUDREAUX'S BUTT PASTE TOP PRN (11:32)
[2020-05-09] MEDS: guaiFENesin SYRUP 200 MG/10 ML UDC PO SCH ×3 (11:32→21:39)
--- NOTE | 2020-05-09 11:47 | IPN ---
PROGRESS NOTE DATE: 05/09/2020 SUBJECTIVE: Nedra was seen and examined this morning by the Pulmonary Service at the bedside in the Progressive Care Unit. She remains on mechanical ventilation and is resting comfortably. On speaking with nursing, she required a few episodes of suctioning overnight. She had no overnight or morning residuals with her tube feeds. Of note on review, her Hospitalist Physician Service has switched her antimicrobial coverage from Zosyn to Meropenem q. 8 hours this morning. OBJECTIVE: VITALS: Temperature 97.7, heart rate 91, respiratory rate 18, blood pressure 101/54, oxygen saturation of 100% on volume cycled SIMV mechanical ventilation. HEENT: Normocephalic, atraumatic. Pupils are equal, round and reactive to light and accommodation bilaterally. There is some conjunctival pallor, non-injected, anicteric sclera. NECK: Trach tube remains in place. There is no surrounding significant erythema or exudate around the trach tube. CARDIOVASCULAR: Irregular rate, irregular rhythm. Normal S1, S2. No murmurs or rubs were appreciated although there is significant rhonchi in ambient noise from mechanical ventilation affecting full assessment for murmurs, rubs or gallops. RESPIRATORY: Diminished breath sounds bilaterally with bilateral rhonchi most prominent at the left parasternal area. Symmetric chest expansion on mechanical ventilation. GASTROINTESTINAL: PEG-tube remains in place in the upper central region of her abdomen. There is no significant surrounding erythema, exudate, or induration around the insertion site of the PEG-tube. She did have some mild tenderness of the right lower quadrant, otherwise there is no guarding or rigidity appreciated. Normoactive bowel sounds throughout. EXTREMITIES: Bilateral lower extremities are free of pitting edema. There are no signs of clubbing or cyanosis. There are 2+ radial pulses bilaterally. There is bilateral plantar onychomycosis. There remains some bruising of bilateral forearms and a PICC line is in place in her left upper extremity. GENITOURINARY: A Simmons catheter remains in place with approximately 250 ml in the current bag of mid to dark yellow colored urine. NEUROLOGIC: She is resting comfortably, easily arousable. She maintains good eye contact throughout the exam but is nonverbal, responding with head/hand movements, or written words. There is right upper extremity hemiparesis and bilateral lower extremity paresis. There are visible tongue fasciculations as well as left facial fasciculations and facial droop. LABORATORY DATA: CBC: White blood cell count 8.4, hemoglobin 8.2, hematocrit 26.7, platelet count 491,000. BMP shows a sodium of 139, potassium 3.6, chloride 106, bicarbonate 30, BUN 20, creatinine 0.27 with a calculated GFR greater than 60%, and serum glucose 116. Magnesium 2, calcium 7.9. CRP today was 8.97, and procalcitonin two days ago was 0.72. Arterial blood gas done this morning had results of pH of 7.486, pCO2 38.9, pO2 of 156.3, and the calculated bicarb of 30 all while on volume cycled intermittent mechanical ventilation. A 24 hour input: 360, output of 380 with a net 24 hour negative through midnight of -20 ml. Two initial blood cultures have shown no growth at the five day lidya. Sputum gram stain showing multiple organisms with both a gram positive, gram negative with few epithelial cells and many white blood cells. Culture grew pseudomonas aeruginosa. Current ventilator settings on mechanical ventilation, volume cycled intermittent ventilation: PEEP of 8, tidal volume of 400, respiratory rate of 20, backup pressure support of 18, FIO2 of 60%. IMPRESSION AND PLAN: 1. Ms. Bledsoe's primary issue continues to be acute on chronic respiratory failure secondary ventilatory failure due to her progressive neuromuscular disease (likely amyotrophic lateral sclerosis). She has been on volume cycled mechanical ventilation for roughly the past 48 hours, and an ABG obtained this morning showed improvement in her oxygenation as well as overall pH. Upon review of imaging from Saturday, as well as ausculatory exam today, she has a significant left lower lobe infiltrate with corresponding rhonchi over the left main bronchus. We have spoken with the Respiratory Therapy Service to begin using an L-catheter to ensure consistent suctioning of the left lower lobe. With the improvement in the ABG this morning, we likely can begin to bring down the FIO2 on her vent settings. Otherwise, ABG showed that her current vent settings are adequate. She remains with scheduled and prn DuoNeb administration, as well as scheduled saline nebulizer treatments. She is continuing with chest Physical Therapy as well. 2. Suspected left lobe pneumonia. As discussed in laboratories, patient had a sputum culture two days ago showing growth of pseudomonas aeruginosa and as discussed in the HPI, her primary Hospitalist service has switched antimicrobial coverage from Zosyn to Meropenem this morning. Her white count was not elevated today, which rapp the second consecutive day without leukocytosis. She continues to remain afebrile and denies any chills on review. With the imaging of the left lobe as discussed earlier, as well as her procalcitonin two days ago of 0.7, and three days of leukocytosis at the end of last week, we believe there is certainly a bacterial process involved but still uncertain whether this is a pseudomonas pneumonia versus simply a colonization; since the patient has remained relatively stable with no white count and no fever. At the completion of treatment, we'd recommend a repeat sputum gram stain and culture. 3. DVT prophylaxis: Patient is on her home Apixaban dosing for a history of bilateral DVTs status post IVC filter implantation. Hemoglobin continues to be around 8. 4. GI prophylaxis: Patient is on both omeprazole and sucralfate via her PEG tube. MTDD
[2020-05-10] VITALS (30 sets, daily range): BP systolic 100–119; BP diastolic 50–58; O2SAT 94–100
[2020-05-10] MEDS: IPRATROPIUM 0.5MG/ALBUTEROL 2.5MG INH SOL UD 3ML (DUONEB) NEB PRN (00:17)
[2020-05-10] MEDS: SODIUM CHLORIDE HYPERTONIC 3% 15ML NEB SOL INH SCH ×6 (00:17→23:27)
[2020-05-10] MEDS: SUCRALFATE SUSP 1GM/10ML UD PO SCH ×4 (00:31→17:08)
[2020-05-10] MEDS: MEROPENEM INJ 1 GM in IV 1 EA IV SCH ×3 (00:31→16:01)
[2020-05-10] MEDS: SODIUM CHLORIDE 0.9% INJ 10 ML SYR IV SCH ×2 (05:22→17:08)
[2020-05-10 05:43] LABS: BASO # 0.1 10^3/uL (0.0-0.2); BASO % 0.6 % (0.0-1.0); EOS # 0.4 10^3/uL (0.0-0.5); EOS % 4.6 % (0.0-3.0); HEMATOCRIT 24.5 % (36.0-47.0); HEMOGLOBIN 7.5 g/dl (12.0-15.5); LYMPH # 1.2 10^3/uL (1.5-5.0); LYMPH % 13.8 % (24.0-44.0); MEAN CORPUSCULAR HGB CONC 30.6 g/dl (32.0-36.5); MEAN CORPUSCULAR VOLUME 91.4 fl (80.0-96.0); MONO # 0.8 10^3/uL (0.0-0.8); NEUTROPHILS # 6.3 10^3/uL (1.5-8.5); NEUTROPHILS % 71.2 % (36.0-66.0); PLATELET COUNT, AUTOMATED 474 10^3/uL (150-450); RED BLOOD COUNT 2.68 10^6/uL (4.00-5.40); WHITE BLOOD COUNT 8.9 10^3/uL (4.0-10.0)
[2020-05-10 06:17] LABS: BLOOD UREA NITROGEN 16 MG/DL (7-18); C REACTIVE PROTEIN QUANTITATIV 9.49 MG/DL (0.00-0.30); CARBON DIOXIDE LEVEL 30 MEQ/L (21-32); CHLORIDE LEVEL 106 MEQ/L (98-107); CREATININE FOR GFR 0.21 MG/DL (0.55-1.30); GLOMERULAR FILTRATION RATE > 60.0 (>39); GLUCOSE, FASTING 112 MG/DL (70-100); MAGNESIUM LEVEL 1.9 MG/DL (1.8-2.4); POTASSIUM SERUM 4.2 MEQ/L (3.5-5.1); SODIUM LEVEL 140 MEQ/L (136-145)
[2020-05-10] MEDS: IPRATROPIUM 0.5MG/ALBUTEROL 2.5MG INH SOL UD 3ML (DUONEB) NEB SCH ×4 (07:41→19:45)
[2020-05-10 08:45] LABS: ALBUMIN 1.9 GM/DL (3.2-5.2); ALT/SGPT 18 U/L (12-78); BILIRUBIN,DIRECT < 0.1 MG/DL (0.0-0.2); BILIRUBIN,TOTAL 0.1 MG/DL (0.2-1.0); LDH LACTATE DEHYDROGENASE 185 U/L (84-246)
[2020-05-10] MEDS: guaiFENesin SYRUP 200 MG/10 ML UDC PO SCH ×3 (09:18→20:58)
[2020-05-10] MEDS: CHLORHEXIDINE GLUCONATE 0.12 % 15ML UDC (PERIDEX ORAL RINSE) MT SCH ×2 (09:18→20:57)
[2020-05-10] MEDS: NYSTATIN 100,000 UNITS/GM TOPICAL PWD 15 GM TOP SCH ×2 (09:18→20:57)
[2020-05-10] MEDS: NEUTRA-PHOS 1.5 GM PACKET PO SCH (09:19)
[2020-05-10] MEDS: OMEPRAZOLE SUSPENSION 20MG 10ML ORAL SYRINGE PEG SCH (09:19)
[2020-05-10] MEDS: APIXABAN 5 MG TAB (ELIQUIS) PEG SCH ×2 (09:19→20:58)
[2020-05-10] MEDS: CHOLESTYRAMINE 4 GM PWD PKT PO SCH ×3 (09:19→20:58)
[2020-05-10] MEDS: ALPRAZolam 0.25 MG TAB PO PRN (09:19)
[2020-05-10] MEDS: ACETAMINOPHEN TAB 650MG DOSE (2X325MG) PO PRN ×2 (09:19→15:56)
--- NOTE | 2020-05-10 10:52 | IPNPDOC ---
Text Note Date of Service The patient was seen on 05/10/20. NOTE Subjective: Patient is a 74-year-old female with a PMHx of HTN, DLP, Hx of DVT (s/p IVC on Eliquis), Sacral decubitus ulcer, Suspected neurologic disease (possible ALS) presented to [facility] for dysphagia patient's hospital course was complicated with acute respiratory failure for which patient was intubated and mechanically ventilated. She ultimately received a tracheostomy and PEG tube placement. Patient was seen and examined at the bedside. Patient appears to be comfortable, laying in bed, does not appear to be in any acute distress, is awake and alert to understand responses and nods her head yes or no for questions. Objective: Vitals (See below) General: Laying in bed at 45 angle, appears comfortable, not in any acute distress, is awake and alert HEENT: Normocephalic, atraumatic, tracheostomy connected to vent CVS: +S1S2 Lungs: Rhonchi appreciated bilaterally. No evidence of wheezing or crackles Abdomen: Without distention or tenderness. PEG tube noted Extremities: No edema Imaging: CXR 05/07: Left arm PICC line and tracheostomy tube appear unchanged. Heart and mediastinum are unchanged in appearance.Diffuse bilateral interstitial prominence and left base retrocardiac opacity are unchanged. Assessment and plan: Acute respiratory failure - possibly 2/2 ALS - Patient has had an uneventful evening - s/p Tracheostomy 04/29/2020 - c/w DuoNeb / Hypertonic saline / Chest PT / Mucinex - Pulmonology on consultation - Will likely require long-term care with vent and trach management s/p Leukocytosis - possibly 2/2 Pseudomonas PNA, possibly 2/2 tracheal bronchitis - Afebrile / hemodynamically stable - Imaging noted above - Sputum culture 05/06: Pseudomonas - Procalcitonin noted / No lactic acidosis - CRP increased this mornign - c/w Meropenem (Day #2); s/p (3 days); s/p Augmentin Normocytic anemia - Hg has had slight decline this morning - Iron / B12 / Folate - noted - Will transfuse 2 units PRBC - c/w Omeprazole and Carafate Loose bowel movements - Afebrile - Physical without any abdominal discomfort - c/w Rectal tube / Zinc oxide for skin protection - c/w Cholestyramine ALS - Neurology on consultation; no Riluzole for now Dysphagia with protein calorie malnutrition - s/p PEG tube placement 04/20/2020 - c/w PEG tube feedings with continuous infusion Hx of DVT - c/w Eliquis Anxiety - c/w Alprazolam PRN GI prophylaxis - c/w PPI and Carafate DVT prophylaxis - c/w full anticoagulation with Eliquis Disposition: - Discussed with daughter on 05/05; Tammie Ribeiro and patient at the beside; will seek LTAC / 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 facility for jail care - Advised her that home plan may not be a practical and safe jail solution - I have attempted to call sonGustavo at [phone] and he has not answered his phone after multiple attempts - other daughter has indicated that he will not answer the phone for providers - Family has been made very aware of these concerns of going home on vent and high likelihood of poor outcome if transitioned home Prognosis: Poor Code status: Full code VS,Fishbone, I+O VS, Fishbone, I+O Laboratory Tests 05/10/20 05:20 Vital Signs Date Time Temp Pulse Resp B/P (MAP) Pulse Ox O2 Delivery O2 Flow Rate FiO2 05/10/20 10:38 98.8 92 20 115/54 97 Ventilator 05/10/20 07:43 60 I&O- Last 24 Hours up to 6 AM 05/10/20 06:00 Intake Total 2300 ml Output Total 1000 ml Balance 1300 ml YUKO WONG MD May 10, 2020 10:52
--- NOTE | 2020-05-10 11:57 | IPN ---
PROGRESS NOTE DATE: 05/10/2020 SUBJECTIVE: Nedra was seen and examined this morning by the Pulmonary Service at the bedside while in the Progressive Care Unit. She continues to be on mechanical ventilation. On speaking with the Respiratory Therapy, the switch to an L-catheter for suctioning has helped, as significant amounts of mucous were removed in the last 24 hours. In addition, we see that the patient was tested for the novel Coronavirus yesterday and that returned negative; marking her third negative test in the 27 days she has been in the hospital. In addition, the Hospitalist Service has ordered 2 units of packed red blood cells to be transfused as her hemoglobin dropped this morning to 7.5. There also appears to be ongoing workup for hemolysis. On speaking with Nedra, she reports no significant change in her work of breathing. She reports the pain associated with her sacral ulcer is a little bit better today than on prior days. She denies any significant fever either in the overnight or this morning. She does report feeling somewhat clammy at times in the overnight, but not this morning. She also denies any chest pain or abdominal pain. OBJECTIVE: GENERAL: Pleasant elderly female, on mechanical ventilation. Nonverbal but responding with hand/head movements or written word. HEENT: Normocephalic, atraumatic. Pupils are equal, round and reactive to light and accommodation. Non-injected, anicteric sclera. Conjunctival pallor is present. There are moderate amounts of oral secretions and there is visible tongue fasciculation. There is also visible fasciculations of facial muscles bilaterally. NECK: Tracheostomy remmains in place. There is no significant bleeding, discharge or erythema surrounding the trach site. CARDIOVASCULAR: Borderline tachycardic rate, regular rhythm. Normal S1, S2. No distinct murmurs or rubs were appreciated. 2+ radial pulses bilaterally. RESPIRATORY: Overall, she is looking better today than yesterday. There continued to be bilateral rhonchi slightly, more prominent with inspiration, but overall there are less rhonchorous breath sounds today. There continues to be diminished breath sounds overall and she is on intermittent ventilation settings for volume cycled mechanical ventilation with backup pressure support. Symmetric chest expansion. No significant wheezes or crackles are appreciated. GASTROINTESTINAL: There continues to be a PEG-tube in place in the middle upper quadrant of the abdomen. There is no surrounding erythema, induration, discharge or bleeding visible at the insertion site of the PEG-tube. Hyperactive bowel sounds present throughout. Nontender and nondistended. No rigidity appreciated. EXTREMITIES: 2+ radial pulses palpable bilaterally. Bilateral lower extremities are free of pitting edema. Onychomycosis of bilateral toenails. There is a PICC line in place in the left upper extremity. GENITOURINARY: There continues to be a Simmons catheter in place draining light colored urine. NEUROLOGIC: Nedra is awake and maintains good eye contact throughout the exam. She answers all questions appropriately via hand or head movements or the written words. She remains nonverbal. There is right upper extremity hemiparesis and bilateral lower extremity paresis. She continues to have orofacial fasciculations visible on exam. LABORATORY DATA: WBC is 8.9, hemoglobin is 7.5 with an MCV of 91.4%. Hematocrit is 24.5, platelet count 474,000. There is a haptoglobin ordered which is pending at this time. Sodium is 140, potassium is 4.2, chloride is 106, bicarbonate 30, anion gap of 4, BUN of 16, serum creatinine of 0.21 with a calculated GFR of greater than 60%, serum glucose is 112. Serum calcium 8, magnesium 1.9. Total bilirubin 0.1. Direct bilirubin is less than 0.1. AST 15, ALT 18, alkaline phosphatase is 74, lactate dehydrogenase (LDH) of 185, C-reactive protein of 9.49, total protein of 6.0 and albumin of 1.9. In terms of blood bank, two leukocyte reduced packed red blood cell transfusions have been ordered with one currently transfusing at this time with type and screen showing blood type of AB positive. No ABG obtained this morning and there was no new imaging obtained today either. As stated in the HPI a SARS-COV2 PCR test was done yesterday afternoon which was negative. Two blood cultures were obtained when she was admitted on April 13 showing no growth after five days. Sputum culture last Saturday, four days ago, grew pseudomonas aeruginosa. A 24 hour input is 1770 ml with an output of 1000 ml and a net 24 hour I and O balance of positive 770 ml. She has received 1320 ml of tube feedings through midnight last night and had two incontinent bowel movements yesterday. ASSESSMENT AND PLAN: 1. 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 Overall, she did appear better from a respiratory standpoint today versus our exam yesterday. We have had good success with L-catheter suctioning to try and get to the left lower lobe. In terms of her ventilatory settings, we have decreased her FIO2 from 60% to 40%. This was done because of potential side-effect risk with higher inspired oxygen settings causing micro-atelectasis. A lower FiO2 helps to better perceive changes in her oxygen saturation. She is on continuous pulse oximetry but she could have a change in her composition that would potentially go unnoticed because of how over- oxygenated she is, seeing as her pO2 on yesterday's ABG was 156. Therefore, we are decreasing her FIO2. She is tolerating the volume cycle intermittent ventilation settings with backup pressure support. She continues to be on a PEEP of 8 with a tidal volume set at 400 and a respiratory rate of 20. We will continue with her respiratory medications as they have been for the past couple of days which include scheduled and p.r.n. DuoNeb, scheduled nebulized saline, and her chest Physical Therapy. On speaking with respiratory therapy, they state they have had some improvements and benefits since implementing the chest PT. 2. Suspected bacterial pneumonia. As stated in our progress note from yesterday, while the patient has grown pseudomonas aeruginosa on sputum culture, she does not have the robust clinical picture of a typical pseudomonas pneumonia. She remains afebrile and denies any significant night sweats or chills and also does not have leukocytosis for the third consecutive day. We do think there is a bacterial process going on and agree with the continued administration of antibiotics. She is currently on day #2 of Meropenem, after having been on Zosyn for three prior days. Of note, procalcitonin obtained three days ago resulted at 0.72. We believe the focus of infection is in her left lower lobe as seen by recent imaging. She has had good response to the L-catheter in terms of suctioning off mucous from the left lobe. In addition, her CRP increased to 9.49 today from 8.9 yesterday. 3. Normocytic anemia. Patient's hemoglobin this morning was 7.5, a drop in 0.7 from yesterday's 8.2. Her Hospitalist Service has ordered a type and screen and two units of packed red blood cells to be transfused. Also, there is a workup for potential hemolysis that has been ordered. Of note, her bilirubin on previous days was actually low, which would not point to a hemolytic type picture. There was also an iron panel workup ordered four days ago with normal ferritin levels, decreased serum iron, decreased TIBC and decreased transferrin percentage saturation. We see there have been orders placed for stool occult and the patient is in the process of getting a rectal tube. We are unable to view any results of the stool occult at this time. 4. 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 Patient has been seen once during her 27 day hospital stay by the neurology service. In speaking to the Hospitalist service today, they mentioned potentially reaching back out to Neurology to follow-up and see the patient again. She apparently did not follow through with some outpatient Neurology appointments locally here in the past and had been following at [facility] in [place]. The Hospitalist Service is also working on the best placement for the patient considering all the needs related to her feedings and ventilator/trach maintenance. She continues to get Neutra-Phos tube feeds continuously at 60 ml/hr. There is no report from nursing this morning of any residuals. 5. Decreased creatinine. Serum creatinine this morning was 0.21. This has been a fairly constant issue nearly the last month she has been here. This is likely a manifestation of decreased muscle wasting and therefore decreased muscle breakdown resulting in lower creatinine - - all as a side-effect of her progressive neuromuscular disease. Dr. Sargent: I participated in the evaluation and management as outlined above by the resident physician and I agree with the above as outlined. The mucus plugging is less of an issue with the l-cath. The patient's terminal operator prognosis remains grim given the progressive neuro-muscular disease. MTDD
[2020-05-10] MEDS: BOUDREAUX'S BUTT PASTE TOP PRN (14:47)
[2020-05-11] VITALS (18 sets, daily range): BP systolic 105–162; BP diastolic 53–78; O2SAT 93–98
[2020-05-11] MEDS: MEROPENEM INJ 1 GM in IV 1 EA IV SCH ×3 (00:14→17:05)
[2020-05-11] MEDS: SUCRALFATE SUSP 1GM/10ML UD PO SCH ×2 (00:14→05:01)
[2020-05-11] MEDS: SODIUM CHLORIDE HYPERTONIC 3% 15ML NEB SOL INH SCH ×5 (04:19→20:05)
[2020-05-11] MEDS: SODIUM CHLORIDE 0.9% INJ 10 ML SYR IV SCH ×2 (05:00→17:35)
[2020-05-11 05:37] LABS: BASO # 0.1 10^3/uL (0.0-0.2); BASO % 0.9 % (0.0-1.0); EOS # 0.6 10^3/uL (0.0-0.5); HEMATOCRIT 33.3 % (36.0-47.0); LYMPH # 0.9 10^3/uL (1.5-5.0); LYMPH % 8.6 % (24.0-44.0); MEAN CORPUSCULAR HEMOGLOBIN 27.1 pg (27.0-33.0); MEAN CORPUSCULAR HGB CONC 30.3 g/dl (32.0-36.5); MEAN CORPUSCULAR VOLUME 89.3 fl (80.0-96.0); MONO # 0.9 10^3/uL (0.0-0.8); MONO % 8.4 % (2.0-8.0); NEUTROPHILS # 7.6 10^3/uL (1.5-8.5); PLATELET COUNT, AUTOMATED 499 10^3/uL (150-450); RED BLOOD COUNT 3.73 10^6/uL (4.00-5.40); WHITE BLOOD COUNT 10.1 10^3/uL (4.0-10.0)
[2020-05-11 05:45] LABS: HEMOGLOBIN 10.1 g/dl (12.0-15.5)
[2020-05-11 06:22] LABS: BLOOD UREA NITROGEN 17 MG/DL (7-18); CALCIUM LEVEL 8.2 MG/DL (8.8-10.2); CARBON DIOXIDE LEVEL 31 MEQ/L (21-32); CHLORIDE LEVEL 106 MEQ/L (98-107); CREATININE FOR GFR 0.19 MG/DL (0.55-1.30); GLOMERULAR FILTRATION RATE > 60.0 (>39); GLUCOSE, FASTING 98 MG/DL (70-100); MAGNESIUM LEVEL 2.1 MG/DL (1.8-2.4); POTASSIUM SERUM 4.6 MEQ/L (3.5-5.1); SODIUM LEVEL 140 MEQ/L (136-145)
[2020-05-11] MEDS: IPRATROPIUM 0.5MG/ALBUTEROL 2.5MG INH SOL UD 3ML (DUONEB) NEB SCH ×4 (07:21→20:04)
[2020-05-11 08:12] LABS: C REACTIVE PROTEIN QUANTITATIV 7.27 MG/DL (0.00-0.30)
--- NOTE | 2020-05-11 10:08 | REP ---
INDICATION: Constipations COMPARISON: None. TECHNIQUE: Portable supine views of the abdomen and pelvis. FINDINGS: Ileus and moderate to significant fecal stasis is suggested without obvious obstruction or perforation. Percutaneous gastrostomy tube overlies the gastric bubble. Skeletal structures demonstrate age-related degenerative changes. IMPRESSION: Ileus and fecal stasis. No obvious bowel obstruction. <Electronically signed by Prosper Strange > 05/11/20 [id number]
[2020-05-11] MEDS: guaiFENesin SYRUP 200 MG/10 ML UDC GT SCH ×3 (10:28→20:30)
[2020-05-11] MEDS: OMEPRAZOLE SUSPENSION 20MG 10ML ORAL SYRINGE PEG SCH (10:29)
[2020-05-11] MEDS: APIXABAN 5 MG TAB (ELIQUIS) PEG SCH ×2 (10:29→20:30)
[2020-05-11] MEDS: NYSTATIN 100,000 UNITS/GM TOPICAL PWD 15 GM TOP SCH ×2 (10:31→20:31)
[2020-05-11] MEDS: ACETAMINOPHEN 325 MG/10.15 ML UDC GT PRN ×2 (10:32→17:34)
[2020-05-11] MEDS: CHLORHEXIDINE GLUCONATE 0.12 % 15ML UDC (PERIDEX ORAL RINSE) MT SCH ×2 (10:33→20:30)
--- NOTE | 2020-05-11 10:58 | IPNPDOC ---
Text Note Date of Service The patient was seen on 05/11/20. NOTE Subjective: Patient is a 74-year-old female with a PMHx of HTN, DLP, Hx of DVT (s/p IVC on Eliquis), Sacral decubitus ulcer, Suspected neurologic disease (possible ALS) presented to [facility] for dysphagia patient's hospital course was complicated with acute respiratory failure for which patient was intubated and mechanically ventilated. She ultimately received a tracheostomy and PEG tube placement. Patient was seen and examined at the bedside. Laying in bed, no acute distress, answering questions with noding yes or no. Denies any CP, SOB, abdominal pain or N/V. Objective: Vitals (See below) General: Laying in bed, slightly sitting up, appears comfortable, no acute distress, Awake / Alert HEENT: NC, AT, Trach connected to vent CVS: +S1S2 Lungs: Air entry fair, no wheezing / rhonchi Abdomen: +PEG, no tenderness, no distention Extremities: LE are without edema Imaging: CXR 05/07: Left arm PICC line and tracheostomy tube appear unchanged. Heart and medias tinum are unchanged in appearance.Diffuse bilateral interstitial prominence and left base retrocardiac opacity are unchanged. Assessment and plan: Acute respiratory failure - possibly 2/2 ALS - s/p Tracheostomy 04/29/2020 - c/w DuoNeb / Hypertonic saline / Chest PT / Mucinex - Pulmonology on consultation - Will likely require long-term care with vent and trach management - PFS on board for LTAC placement Leukocytosis - possibly 2/2 Pseudomonas PNA, possibly 2/2 tracheal bronchitis - Afebrile / hemodynamically stable - Imaging noted above - Sputum culture 05/06: Pseudomonas - Procalcitonin noted / No lactic acidosis - CRP improving - c/w Meropenem (Day #3); s/p (3 days); s/p Augmentin Normocytic anemia - Hg has had slight decline this morning - Iron / B12 / Folate - noted - s/p 2 units PRBC - c/w Omeprazole and Carafate s/p Loose bowel movements - Afebrile - Physical without any abdominal discomfort - XR abdomen 05/11: Ileus and fecal stasis. No obvious bowel obstruction. - Will DC Rectal tube - c/w Zinc oxide for skin protection - Will DC Cholestyramine ALS - Neurology on consultation; no Riluzole for now Dysphagia with protein calorie malnutrition - s/p PEG tube placement 04/20/2020 - c/w PEG tube feedings with continuous infusion Hx of DVT - c/w Eliquis Anxiety - c/w Alprazolam PRN GI prophylaxis - c/w PPI and Carafate DVT prophylaxis - c/w full anticoagulation with Eliquis Disposition: - Discussed with daughter on 05/05; Tammie Ribeiro and patient at the beside; will seek LTAC / 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 facility for prison care - Advised her that home plan may not be a practical and safe buttermaker helper solution - I have attempted to call sonGustavo at [phone] and he has not answered his phone after multiple attempts - other daughter has indicated that he will not answer the phone for providers - Family has been made very aware of these concerns of going home on vent and high likelihood of poor outcome if transitioned home Prognosis: Poor Code status: Full code VS,Fishbone, I+O VS, Fishbone, I+O Laboratory Tests 05/11/20 04:57 Vital Signs Date Time Temp Pulse Resp B/P (MAP) Pulse Ox O2 Delivery O2 Flow Rate FiO2 05/11/20 07:20 20 98 40 05/11/20 04:20 86 05/11/20 04:20 Ventilator 05/11/20 04:00 97.1 113/53 (73) I&O- Last 24 Hours up to 6 AM 05/11/20 06:00 Intake Total 3150 ml Output Total 2450 ml Balance 700 ml YUKO WNOG MD May 11, 2020 10:58
[2020-05-11] MEDS ORDERED: BISACODYL 10 MG SUPP PR ONE (11:00)
[2020-05-11] MEDS: SUCRALFATE SUSP 1GM/10ML UD GT SCH ×2 (12:35→17:34)
--- NOTE | 2020-05-11 12:38 | IPN ---
PROGRESS NOTE DATE: 05/11/2020 SUBJECTIVE: Nedra was seen and examined this morning while lying in her progressive care unit bed. She remains on mechanical ventilation. On review of her chart and speaking to the nursing staff, she had no significant respiratory issues overnight and tolerated well the decrease in FIO2 change we made yesterday from 60% to 40%. There were no reports of any significant mucous plugging overnight and there did not appear to be any episodes of significant desaturation either. Upon review of the chart this morning, her Hospitalist physician service has discontinued her rectal tube as it has been over a day since her last bowel movement. She had been having some looser stools but now seems to be shifting to constipation. There was an abdominal x-ray (KUB) that was ordered this morning. In addition, she had a significant drop in her hemoglobin yesterday to 7.5. She received 2 units of packed red blood cells via transfusion and had a significant improvement in her hemoglobin today to 10.1. PHYSICAL EXAMINATION: VITAL SIGNS: Temperature is 97.1 (T-max overnight of 98.0), heart rate of 86, respiratory rate of 20, blood pressure is 113/53, SpO2 of 98% on mechanical ventilation, SIMV mode 40% FIO2, PEEP of 5, background pressure support of 18 with a respiratory rate of 20 and a tidal volume of 400. GENERAL: Elderly female lying in bed on mechanical ventilation via a trach tube. She appears to be in no acute respiratory distress. HEENT: Normocephalic, atraumatic. Non-injected, anicteric sclera. Pupils are equal, round and reactive to light and accommodation. There appeared to be fewer oral secretions on exam today versus yesterday. NECK: Trach tube remains in place. There is no surrounding erythema, discharge, or bleeding from the insertion site. CARDIOVASCULAR: Borderline tachycardic rate, regular rhythm. Normal S1, S2. There are 2+ radial pulses bilaterally. RESPIRATORY: Her respiratory status is improved today over two days ago. The bilateral rhonchi has diminished again, it is still present but again certainly diminished from two days ago. Decreased breath sounds bilaterally with symmetric chest expansion. No crackles or wheezes are appreciated. She is on the mechanical ventilation settings as stated above. GASTROINTESTINAL: Normoactive bowel sounds throughout. No rigidity. There is some tenderness in her suprapubic and bilateral lower quadrants. There remains a PEG-tube in place in the upper middle quadrant. GENITOURINARY: The Simmons catheter remains in place draining yellow colored urine. EXTREMITIES: She is wearing bilateral MPO boots. Bilateral lower extremities free of pitting edema. NEUROLOGIC: She is awake, responding appropriately to all questions and commands via head or left arm movement. She has right hemiparesis and bilateral lower extremity paresis. No facial fasciculations observed today. LABORATORY DATA: WBC 10.1, hemoglobin is 10.1, hematocrit is 33.3, platelet count is 499,000, haptoglobin 444. Chemistries shows a sodium of 140, potassium of 4.6, chloride is 106, bicarbonate 31, calculated anion gap of 3, BUN of 17, creatinine of 0.19 with a calculated GFR of greater than 60%, glucose of 98, calcium 8.2, phosphorus 3.0, magnesium 2.1, C-reactive protein 7.27. A 24 hour input through midnight of the overnight is 3200 ml with an output of 2200 ml and a net 24 hour positive of 1 liter. She received 1440 ml of tube feeding as well as 810 ml of blood product through the two PRBC transfusions. No blood gas was obtained this morning. IMAGING: Portable abdomen radiograph (KUB) that was read as showing "ileus and fecal stasis. No obvious bowel obstruction." Upon review from the Pulmonary Service, imaging showed that in comparison to her last chest x-ray four days ago (on 05/07) that the left hemidiaphragm has moved more inferiorly today versus on comparison and this is important to note as she did have the observed left lower lobe atelectasis over the weekend. IMPRESION AND PLAN: 1. Acute on chronic respiratory failure due to ventilatory failure secondary to progressive neuromuscular disease. This remains Nedra's primary overlying issue and the impetus for pulmonary service attention. Today was the second straight day of respiratory improvement and it appears as though using the L-catheter has helped remove mucous from the left lower lobe, which had been atelectatic on imaging over the weekend. No significant mucous plugging was reported overnight. She handled well the decrease to 40% FIO2. She seems to be quite comfortable and as such we will decrease her FIO2 again today to 30% from 40%. She remains on the mechanical ventilatory setting with backup pressure support. As mentioned in yesterday's documentation, decreasing the FIO2 percentage at this time serves to mitigate potential risk of atelectasis on higher inspired oxygen and better ascertain changes in her saturation levels (since she had pO2 of 156 on ABG two days ago). We will continue with all of her other associated respiratory treatments in the form of chest PT, DuoNebs, saline nebs, and in line suction remains (under the purview of respiratory therapy). 2. Normocytic anemia, improved. Patient is status post 2 units of packed red blood cells that were transfused yesterday and her hemoglobin henrique to 10.1 from 7.5. 3. Suspected tracheal bronchitis versus bacterial pneumonia. As stated on previous documentation, the patient did have a sputum culture result growing pseudomonas. At this point, we are still unsure if this is colonization versus pseudomonal pneumonia. She continues to remain afebrile. Her white count did come up slightly to 10.1 today but she denied any overnight fevers or chills subjectively. She is on day #3 of Meropenem. Her CRP has decreased today to 7.27 from 9.49 yesterday. 4. Progressive neuromuscular disease. Pulmonary Service actually spoke with patient family services who was about to go into the room and discuss with the patient two options for long-term acute care with ventilatory management capability. Those facilities are located in [place], [place] and [place], [place]. She continues to receive continuous tube feeds and there was no report from nursing about any overnight or morning residuals on the feeds. 5. Decreased creatinine. Serum creatinine was 0.19 today. She had been around 0.3 for the past week and a half but this continues to go down and. as stated before on previous documentation, this is likely due to decreased muscle mass from her progressive neuromuscular disease and therefore there is less muscle breakdown and hence lower serum creatinine. AMBROCIO
[2020-05-11 15:50] LABS: ABG HCO3 24.5 MEQ/L (22.0-26.0); ABG O2 SATURATION 96.1 % (95.0-99.0); ABG PARTIAL PRESSURE CO2 35.2 mmHg (35.0-45.0); ABG PARTIAL PRESSURE O2 76.5 mmHg (75.0-100.0); ABG STANDARD HCO3 25.4 MEQ/L (22.0-26.0); ABG TOTAL CO2 25.6 MEQ/L (23.0-31.0); ABG pH (ARTERIAL) 7.461 UNITS (7.350-7.450)
[2020-05-11 20:50] LABS: HEMATOCRIT 35.9 % (36.0-47.0); HEMOGLOBIN 10.9 g/dl (12.0-15.5); MEAN CORPUSCULAR HEMOGLOBIN 27.1 pg (27.0-33.0); MEAN CORPUSCULAR HGB CONC 30.4 g/dl (32.0-36.5); MEAN CORPUSCULAR VOLUME 89.3 fl (80.0-96.0); PLATELET COUNT, AUTOMATED 541 10^3/uL (150-450); RED BLOOD COUNT 4.02 10^6/uL (4.00-5.40); WHITE BLOOD COUNT 11.5 10^3/uL (4.0-10.0)
[2020-05-11 21:00] LABS: INR 1.17; PROTHROMBIN TIME 15.2 SECONDS (12.5-14.3)
[2020-05-11 21:20] LABS: ALT/SGPT 21 U/L (12-78); BILIRUBIN,TOTAL 0.2 MG/DL (0.2-1.0); BLOOD UREA NITROGEN 16 MG/DL (7-18); CALCIUM LEVEL 8.4 MG/DL (8.8-10.2); CARBON DIOXIDE LEVEL 32 MEQ/L (21-32); CHLORIDE LEVEL 106 MEQ/L (98-107); CREATININE FOR GFR 0.26 MG/DL (0.55-1.30); GLOMERULAR FILTRATION RATE > 60.0 (>39); GLUCOSE, FASTING 111 MG/DL (70-100); POTASSIUM SERUM 4.4 MEQ/L (3.5-5.1); SODIUM LEVEL 142 MEQ/L (136-145); TOTAL PROTEIN 5.9 GM/DL (6.4-8.2)
[2020-05-12] VITALS (21 sets, daily range): BP systolic 116–145; BP diastolic 55–65; O2SAT 88–95
[2020-05-12] MEDS: MEROPENEM INJ 1 GM in IV 1 EA IV SCH ×3 (00:02→16:19)
[2020-05-12] MEDS: SUCRALFATE SUSP 1GM/10ML UD GT SCH ×4 (00:02→16:19)
[2020-05-12] MEDS: SODIUM CHLORIDE HYPERTONIC 3% 15ML NEB SOL INH SCH ×6 (00:08→19:35)
[2020-05-12 04:39] LABS: ABG BASE EXCESS 1.7 (-2.0-2.0); ABG HCO3 26.4 MEQ/L (22.0-26.0); ABG O2 SATURATION 96.4 % (95.0-99.0); ABG PARTIAL PRESSURE CO2 41.9 mmHg (35.0-45.0); ABG PARTIAL PRESSURE O2 86.6 mmHg (75.0-100.0); ABG STANDARD HCO3 25.9 MEQ/L (22.0-26.0); ABG TOTAL CO2 27.7 MEQ/L (23.0-31.0); ABG pH (ARTERIAL) 7.417 UNITS (7.350-7.450)
[2020-05-12] MEDS: SODIUM CHLORIDE 0.9% INJ 10 ML SYR IV SCH ×2 (04:48→16:19)
--- NOTE | 2020-05-12 04:56 | REPVR ---
PROCEDURE INFORMATION: Exam: XR Chest Exam date and time: 05/12/2020 4:28 AM Age: 74 years old Clinical indication: Other: Hypoxemia TECHNIQUE: Imaging protocol: XR of the chest Views: 1 view. COMPARISON: [facility] PORTABLE CHEST X-RAY 05/07/2020 7:47 AM FINDINGS: Tubes, catheters and devices: A tracheostomy tube and a left PICC line remain in position. There is a G-tube in the stomach which is unchanged. Lungs: Increased left base infiltrate since the prior study. There is persistent left infrahilar atelectasis or consolidation. Slight right base clearing with better delineation of the right hemidiaphragm. Pleural spaces: Question of minimal left pleural effusion. Heart/Mediastinum: The heart and mediastinum are unchanged. Bones/joints: Unremarkable. IMPRESSION: 1. Increased left base infiltrate since 05/07/2020. 2. Slight right base clearing with better delineation of the right hemidiaphragm since the prior study. 3. Otherwise stable chest. Electronically signed by: William Mansfield On 05/12/2020 04:56:56 AM
[2020-05-12 05:26] LABS: BLOOD UREA NITROGEN 17 MG/DL (7-18); CALCIUM LEVEL 8.5 MG/DL (8.8-10.2); CARBON DIOXIDE LEVEL 31 MEQ/L (21-32); CHLORIDE LEVEL 105 MEQ/L (98-107); CREATININE FOR GFR 0.28 MG/DL (0.55-1.30); GLOMERULAR FILTRATION RATE > 60.0 (>39); GLUCOSE, FASTING 103 MG/DL (70-100); MAGNESIUM LEVEL 2.2 MG/DL (1.8-2.4); POTASSIUM SERUM 4.2 MEQ/L (3.5-5.1); SODIUM LEVEL 139 MEQ/L (136-145); TROPONIN I < 0.02 NG/ML (< 0.10)
[2020-05-12 05:27] LABS: BASO # 0.1 10^3/uL (0.0-0.2); BASO % 0.8 % (0.0-1.0); EOS # 0.6 10^3/uL (0.0-0.5); EOS % 5.3 % (0.0-3.0); HEMATOCRIT 37.4 % (36.0-47.0); HEMOGLOBIN 11.4 g/dl (12.0-15.5); LYMPH # 1.2 10^3/uL (1.5-5.0); LYMPH % 10.3 % (24.0-44.0); MEAN CORPUSCULAR HEMOGLOBIN 27.4 pg (27.0-33.0); MEAN CORPUSCULAR HGB CONC 30.5 g/dl (32.0-36.5); MEAN CORPUSCULAR VOLUME 89.9 fl (80.0-96.0); MONO # 0.9 10^3/uL (0.0-0.8); MONO % 7.4 % (2.0-8.0); NEUTROPHILS # 8.8 10^3/uL (1.5-8.5); NEUTROPHILS % 74.9 % (36.0-66.0); PLATELET COUNT, AUTOMATED 548 10^3/uL (150-450); RED BLOOD COUNT 4.16 10^6/uL (4.00-5.40); WHITE BLOOD COUNT 11.8 10^3/uL (4.0-10.0)
[2020-05-12] MEDS: ACETAMINOPHEN 325 MG/10.15 ML UDC GT PRN (05:41)
[2020-05-12] MEDS: IPRATROPIUM 0.5MG/ALBUTEROL 2.5MG INH SOL UD 3ML (DUONEB) NEB SCH ×4 (07:13→19:35)
[2020-05-12] MEDS: OMEPRAZOLE SUSPENSION 20MG 10ML ORAL SYRINGE PEG SCH (09:23)
[2020-05-12] MEDS: guaiFENesin SYRUP 200 MG/10 ML UDC GT SCH ×3 (09:23→21:25)
[2020-05-12] MEDS: APIXABAN 5 MG TAB (ELIQUIS) PEG SCH ×2 (09:23→21:25)
[2020-05-12] MEDS: NYSTATIN 100,000 UNITS/GM TOPICAL PWD 15 GM TOP SCH ×2 (09:24→21:26)
[2020-05-12] MEDS: CHLORHEXIDINE GLUCONATE 0.12 % 15ML UDC (PERIDEX ORAL RINSE) MT SCH ×2 (09:36→21:26)
[2020-05-12] MEDS: ALPRAZolam 0.25 MG TAB GT PRN (09:38)
--- NOTE | 2020-05-12 12:36 | IPNPDOC ---
Text Note Date of Service The patient was seen on 05/12/20. NOTE Subjective: Patient had 1 episode of desaturation overnight requiring to incre ase FiO2 to 90%, resolved after suctioning Objective: Vitals: (See below) General: Laying in bed, slightly sitting up, appears comfortable, no acute distress, Awake / Alert HEENT: NC, AT, Trach connected to vent CVS: +S1S2 Lungs: Air entry fair, no wheezing / rhonchi Abdomen: +PEG, no tenderness, no distention Extremities: LE are without edema Assessment and plan: Patient is a 74-year-old female with a PMHx of HTN, DLP, Hx of DVT (s/p IVC on Eliquis), Sacral decubitus ulcer, Suspected neurologic disease (possible ALS) [facility] patient's hospital course was complicated with acute respiratory failure for which patient was intubated and mechanically ventilated. She ultimately received a tracheostomy and PEG tube placement. Acute respiratory failure - possibly 2/ ALS - s/p Tracheostomy 04/29/2020 - c/w DuoNeb / Hypertonic saline / Chest PT / Mucinex - Pulmonology on consultation - Will likely require long-term care with vent and trach management - PFS on board for LTAC placement Leukocytosis Patient afebrile Sputum culture was positive for Pseudomonas. Could be colonization Patient on meropenem day 4 Normocytic anemia Hemoglobin is stable ALS There is questionable diagnosis of ALS versus other neuromuscular degenerative disorders Neurology team on board Dysphagia with protein calorie malnutrition - s/p PEG tube placement 04/20/2020 - c/w PEG tube feedings with continuous infusion Hx of DVT - c/w Eliquis Anxiety - c/w Alprazolam PRN GI prophylaxis - c/w PPI and Carafate DVT prophylaxis - c/w full anticoagulation with Eliquis VS,Fishbone, I+O VS, Fishbone, I+O Laboratory Tests 05/11/20 20:39 05/12/20 04:49 Vital Signs Date Time Temp Pulse Resp B/P (MAP) Pulse Ox O2 Delivery O2 Flow Rate FiO2 05/12/20 08:00 97.3 91 20 145/64 (91) 91 Ventilator 40 05/11/20 09:00 15.0 I&O- Last 24 Hours up to 6 AM 05/12/20 06:00 Intake Total 1370 ml Output Total 1400 ml Balance -30 ml CHERRY LATHAM DO May 12, 2020 12:36
--- NOTE | 2020-05-12 12:36 | IPN ---
PULMONARY PROGRESS NOTE DATE: 05/12/2020 PULMONARY PROGRESS NOTE DATE: 05/12/[address] Palmer Sams D.O. on behalf of my attending physician Dr. Jax Sargent D.O. SUBJECTIVE: On speaking with the night hospitalist service, Nedra had multiple overnight developments. Around 8 p.m., some reported bright red blood was suctioned from her trach. At that time, an H&H was ordered, which actually returned improved from earlier in the day. The hospitalist service held her evening Eliquis dosing. Then around 4 a.m., Nedra apparently began to desaturate into the mid to high 80s. Respiratory therapy increased her FiO2 to 100%. A chest x-ray was ordered at that time. Upon review this morning, the chest x-ray showed possibly some slight worsening in the left lower lobe infiltrate; but nothing significant in terms of a change from the last image study five days ago. It is important to note that the ABG was drawn when she was receiving mechanical ventilation with an FiO2 of 90%. An ABG was also ordered at that time and was actually improved from her ABG in the afternoon the day before. Soon after the chest x-ray, she reported to have chest pain in hospital. The hospital service then ordered an EKG, as well as troponins. Troponins were unremarkable and the EKG was also read as unremarkable as well. In speaking with the hospitalist service, they feel as though the act of putting the x-ray plate behind her to obtain the portable x-ray is what may have been an inciting factor for the chest pain. On review this morning, she reports the pain is improved. On speaking with Nedra, she reports that she feels a little bit greater increased work of breathing today versus yesterday. We also spoke at bedside with both her hospitalist physician and respiratory therapist. Suctioning was attempted this morning, but not much was removed. Due to the lack of removal via suction this morning, we then proceeded with saline lavage. Initial returns were still scant amounts of mucous being suctioned off. We did discuss with respiratory therapy that sometimes, there is a delayed response to saline lavage, and she still may produce some mucous as a result of it. We also spoke with respiratory therapy who was concerned about using the rigid L-catheter suction in the setting of her suctioned blood. We encouraged return to using the L-catheter, as bleeding is expected in the setting of her anticoagulation and the fact that she has had multiple suctionings now through the trach over the past two weeks. On speaking with her nurse this morning, we are informed that her nutrition will be switched from Neutra-Phos to Jevity sometime soon. OBJECTIVE: VITAL SIGNS: Temperature of 97.3, heart rate of 91, respiratory rate of 20, blood pressure of 145/64, SpO2 of 91% while on mechanical ventilation with an FiO2 of 40%. GENERAL: Elderly female lying upright in bed. She remains on mechanical ventilation. She does appear to have a slight increased work of breathing today versus previous days. She is alert and oriented, and responding appropriately to questions and commands, but is nonverbal. HEENT: Normocephalic, atraumatic. Noninjected, anicteric sclerae. There are some oral secretions noted, but no pharyngeal erythema or exudate present. NECK: Trach remains in place with no significant surrounding erythema, bleeding, or discharge at insertion site. CARDIOVASCULAR: Borderline tachycardic rate, regular rhythm. No significant murmurs or rubs appreciated. RESPIRATORY: She remains on intermittent minute ventilation with an FiO2 of 40%, respiratory rate of 20, and a backup pressure support of 18. There does seem to be a slight increased work of breathing today versus yesterday, and there does appear to be some dyssynchronous aspect to her respirations. Decreased breath sounds. There is very little in the way of rhonchi appreciated on today's exam, which is a change as she has had pretty steady bilateral rhonchi over the past week. GASTROINTESTINAL: PEG tube remains in place in upper middle quadrant. No surrounding erythema, induration, discharge, or bleeding from insertion site. Nontender. Normoactive bowel sounds throughout. No rigidity appreciated. GENITOURINARY: Simmons catheter remains in place. EXTREMITIES: PICC line in the left upper extremity present. She is wearing bilateral MPO boots. Bilateral lower extremities appear free of pitting edema. 2+ radial pulses bilaterally. NEUROLOGIC: Patient is nonverbal, but does respond appropriately to all questions and commands via head or left arm movements or written word. She has right upper extremity hemiparesis and bilateral lower extremity paresis. She is wearing MPO boots on bilateral lower extremities. LABORATORY DATA: WBC 11.8, hemoglobin 11.4, hematocrit 37.4, platelet count 548,000. Sodium 139, potassium 4.2, chloride 105, bicarb 31, BUN 17, creatinine 0.28, glucose 103, calcium 8.5, magnesium 2.2, troponin of less than 0.02. ABG done at 4:30 in the morning on 05/12 had the following results: PH of 7.417, pCO2 of 41.9, pO2 of 86.6. Of note, on metabolic panel bicarb was 31. IMAGING DATA: Chest x-ray from early this morning was read as having increase in left lung base infiltrate in comparison with most recent study from five days ago (on 05/07). There is actually a better delineation of the right hemidiaphragm in comparison to the most recent prior. On review today, pulmonary service sees no significant change between the 05/07 and 05/12 studies. There was an EKG done as well early this morning and that was reported to be unremarkable by the ordering hospitalist service last night. IMPRESSION AND PLAN: 1. Acute on chronic respiratory failure due to ventilatory failure from progressive neuromuscular disease. This continues to be Nedra's primary issue. In terms of changes, we switched the sensitivity of her mechanical ventilation down to 1 due to observations of dyssynchronous breathing this morning. We will keep her currently on a 40% FiO2 IMV mechanical ventilation with backup pressure support. We did speak with both her hospitalist, as well as respiratory therapist, and encouraged consistent L-catheter use; especially after receiving the saline lavage and that her bleeding, while concerning, is expected due to being on anticoagulation long term care phlebotomist, as well as repeated trach suctioning. We will continue with all other respiratory orders in the form of chest PT, scheduled & prn DuoNebs, and saline nebulizers. She is oxygenating adequately now on her current vent settings. 2. Active bacterial process in the form of pseudomonas aeruginosa, colonization versus pseudomonas pneumonia. As stated multiple times in previous documentation, she is not presenting with typical robust pseudomonas pneumonia picture as she has remained afebrile. There was a slight bump in her white count over the past 24 hours. She continues to be on meropenem. We would suspect that should she have another sputum culture that she would continue growing pseudomonas, despite antibiotics. At this point, it is viewed as suspected tracheobronchitis versus bacterial pneumonia versus pseudomonas colonization. 3. Progressive neuromuscular disease. Per documentation, PFS is moving forward with potentially care home acute care placement at a facility in [place] that both the patient and her daughter, Tammie, agree to. She continues to receive continuous tube feeds, and there are no reports of residuals. She is switching from Neutra-Phos to Jevity for her nutrition. 4. Normocytic anemia. Actually improved upon check this morning and as stated before, hemoptysis is expected as she has been on long anticoagulation and has had the trach in place for now two weeks and has had multiple suctioning events, likely contributing to subtle trauma of airways. Her evening Eliquis was held in the setting of the suctioned blood. I am not sure how much of an effect this will ultimately have, especially with the improved hemoglobin and hematocrit (H&H). She is on Eliquis for history of bilateral deep vein thrombosis (DVT) and status post IVC filter. Eliquis dosing has resumed this morning. 5. Deep vein thrombosis (DVT) prophylaxis. Continue with her home Eliquis as stated above. Bleeding in the form of suctioned blood is expected due to being on Eliquis long term care phlebotomist for history of bilateral DVTs and the trauma associated with suctioning over the past two weeks. MTDD
[2020-05-13] VITALS (10 sets, daily range): BP systolic 96–110; BP diastolic 49–65; O2SAT 91–94
[2020-05-13] MEDS: SODIUM CHLORIDE HYPERTONIC 3% 15ML NEB SOL INH SCH ×7 (00:06→23:35)
[2020-05-13] MEDS: MEROPENEM INJ 1 GM in IV 1 EA IV SCH ×3 (01:42→17:08)
[2020-05-13] MEDS: SUCRALFATE SUSP 1GM/10ML UD GT SCH ×4 (01:42→17:08)
[2020-05-13] MEDS: SODIUM CHLORIDE 0.9% INJ 10 ML SYR IV SCH ×2 (05:31→17:09)
[2020-05-13 06:08] LABS: BASO # 0.1 10^3/uL (0.0-0.2); BASO % 0.4 % (0.0-1.0); EOS # 0.1 10^3/uL (0.0-0.5); EOS % 0.7 % (0.0-3.0); HEMATOCRIT 35.1 % (36.0-47.0); MEAN CORPUSCULAR HEMOGLOBIN 27.8 pg (27.0-33.0); MEAN CORPUSCULAR HGB CONC 31.3 g/dl (32.0-36.5); MEAN CORPUSCULAR VOLUME 88.9 fl (80.0-96.0); MONO # 1.4 10^3/uL (0.0-0.8); MONO % 8.2 % (2.0-8.0); NEUTROPHILS # 14.1 10^3/uL (1.5-8.5); NEUTROPHILS % 83.9 % (36.0-66.0); PLATELET COUNT, AUTOMATED 525 10^3/uL (150-450); RED BLOOD COUNT 3.95 10^6/uL (4.00-5.40); WHITE BLOOD COUNT 16.8 10^3/uL (4.0-10.0)
[2020-05-13 06:31] LABS: BLOOD UREA NITROGEN 21 MG/DL (7-18); CALCIUM LEVEL 8.6 MG/DL (8.8-10.2); CARBON DIOXIDE LEVEL 29 MEQ/L (21-32); CHLORIDE LEVEL 104 MEQ/L (98-107); CREATININE FOR GFR 0.26 MG/DL (0.55-1.30); GLOMERULAR FILTRATION RATE > 60.0 (>39); GLUCOSE, FASTING 128 MG/DL (70-100); MAGNESIUM LEVEL 2.1 MG/DL (1.8-2.4); POTASSIUM SERUM 4.3 MEQ/L (3.5-5.1); SODIUM LEVEL 137 MEQ/L (136-145)
[2020-05-13] MEDS: IPRATROPIUM 0.5MG/ALBUTEROL 2.5MG INH SOL UD 3ML (DUONEB) NEB SCH ×4 (07:33→19:21)
[2020-05-13] MEDS: APIXABAN 5 MG TAB (ELIQUIS) PEG SCH ×2 (09:05→23:44)
[2020-05-13] MEDS: ALPRAZolam 0.25 MG TAB GT PRN ×2 (09:05→23:44)
[2020-05-13] MEDS: CHLORHEXIDINE GLUCONATE 0.12 % 15ML UDC (PERIDEX ORAL RINSE) MT SCH ×2 (09:05→21:00)
[2020-05-13] MEDS: NYSTATIN 100,000 UNITS/GM TOPICAL PWD 15 GM TOP SCH (09:06)
[2020-05-13] MEDS: guaiFENesin SYRUP 200 MG/10 ML UDC GT SCH ×3 (09:06→23:45)
[2020-05-13] MEDS: OMEPRAZOLE SUSPENSION 20MG 10ML ORAL SYRINGE PEG SCH (09:06)
--- NOTE | 2020-05-13 09:08 | ECGEPIP ---
[facility] Test Date: 2020-05-12 Pat Name: FEMI GUARDADO Department: Room: [place] [address] Gender: Female [employer] Program Specialist: JEREMI : 1945 Requested By: HERMINIO STOREY Order Number: [id number] Reading MD: Jorge L Rivera Measurements Intervals [place] Rate: 83 P: 63 GA: 134 QRS: -18 QRSD: 84 T: 35 QT: 372 QTc: 437 Interpretive Statements Normal sinus rhythm Minimal voltage criteria for LVH, may be normal variant (R in aVL) CANNOT R/O INFERIOR WALL [place], OLD VOLTAGE IN EXTREMITY LEADS HAS INCREASED SINCE 04/22/20 Electronically Signed on 05-13-2020 9:08:30 EST by Jorge L Rivera
--- NOTE | 2020-05-13 10:19 | IPN ---
PROGRESS NOTE DATE: 05/13/2020 SUBJECTIVE: I attended Nedra Cordova here on the progressive care unit. She remains on mechanical ventilatory support for her ventilator dependence from her neuromuscular disease. VITAL SIGNS: T-max overnight 98.7, blood pressure generally in the 100s to the one-teens. Heart rate generally in the 90s to low 100s. Respiratory rate between 18 and 22 without accessory muscle use. No desaturation events overnight. Input and output midnight to midnight not accurately recorded. LABS: White blood cell count this morning 16.8, hemoglobin 11.0, platelet count 525,000, 83.9% segs, no bands. Sodium 137, K 4.3, chloride 104, CO2 29, BUN 21, creatinine 0.26, glucose 128. No new radiographic studies today. I spoke with the nurse at the bedside. She still has some intermittent bloody secretions with suctioning. Still some intermittent thick secretions. OBJECTIVE: GENERAL APPEARANCE: She is awake, alert and interactive. She remains globally weak. HEENT: Pupils are reactive. Sclerae are clear. NECK: Trach site is clean and dry. CHEST: Chest does show some rhonchi left greater than right with decreased breath sounds and intensity at the extreme left base. No other focal pulmonary findings are identified. CARDIAC: Distant, generally irregular. Peripheral pulses palpable. There is at least 1+ diffuse edema. ABDOMEN: Soft, normoactive bowel sounds. PEG site benign in appearance. EXTREMITIES: No cyanosis or clubbing. NEUROLOGIC: She is globally weak but is awake and alert. ASSESSMENT: 1. [id number] respiratory failure with mechanical ventilator dependence secondary to neuromuscular disease. 2. Mal-clearance of secretions. 3. Suspected aspiration. 4. Chronic anticoagulation. 5. Recent culture for pseudomonas. PLAN: At this point I am in agreement with her current regimen. No active weaning is planned. She has been intolerant of it due to her neuromuscular dysfunction. She remains on Meropenem. She intermittently still has some thick secretions but has done better with ventilator changes made the last several days. Her secretions will remain bloody with her pulmonary process in the face of anticoagulation. I am told by the nurse that the plans are in the works for transfer to a long-term care facility with ventilator capability and I believe the sooner we can get her somewhere where we can work harder with her in an institution focused on this, I believe would be in her benefit. I see no recent input by neurology. We will proceed as outlined above. If she has any worsening of her pulmonary status, it may be worth re-culturing her. Further recommendations will be made in the progress record as new information becomes available.
--- NOTE | 2020-05-13 10:45 | IPNPDOC ---
Text Note Date of Service The patient was seen on 05/13/20. NOTE Subjective: No any acute events overnight. Sanguinous discharge from tracheal suction . Objective: Vitals: (See below) General: Laying in bed, slightly sitting up, appears comfortable, no acute distress, Awake / Alert HEENT: NC, AT, Trach connected to vent CVS: +S1S2 Lungs: Air entry fair, no wheezing / rhonchi Abdomen: +PEG, no tenderness, no distention Extremities: LE are without edema Assessment and plan: Patient is a 74-year-old female with a PMHx of HTN, DLP, Hx of DVT (s/p IVC on Eliquis), Sacral decubitus ulcer, Suspected neurologic disease (poss ible ALS) [facility] patient's hospital course was complicated with acute respiratory failure for which patient was intubated and mechanically ventilated. She ultimately received a tracheostomy and PEG tube placement. Acute respiratory failure - possibly 2/ ALS - s/p Tracheostomy 04/29/2020 - c/w DuoNeb / Hypertonic saline / Chest PT / Mucinex - Will likely require long-term care with vent and trach management - PFS on board for LTAC placement Leukocytosis/ventilatory associated pneumonia Patient afebrile leukocytosis increased today. Could be secondary to pneumonia given increased left infiltrate on chest x-ray or due to frequent suction and traumatizing of trachea Chest x-ray showed on 05/12/20 Increased left base infiltrate since 05/07/2020 Sputum culture was positive for Pseudomonas. Procalcitonin elevated to 1.1. We will repeat sputum culture I will add levofloxacin for double coverage of pseudomonas. Patient on meropenem day 5 Normocytic anemia Hemoglobin is stable ALS There is questionable diagnosis of ALS versus other neuromuscular degenerative disorders Neurology team on board Dysphagia with protein calorie malnutrition - s/p PEG tube placement 04/20/2020 - c/w PEG tube feedings with continuous infusion Hx of DVT - c/w Eliquis Anxiety - c/w Alprazolam PRN GI prophylaxis - c/w PPI and Carafate DVT prophylaxis - c/w full anticoagulation with Eliquis VS,Fishbone, I+O VS, Fishbone, I+O Laboratory Tests 05/13/20 05:51 Vital Signs Date Time Temp Pulse Resp B/P (MAP) Pulse Ox O2 Delivery O2 Flow Rate FiO2 05/13/20 08:00 97.0 99 19 109/55 (73) 92 Ventilator 60 05/11/20 09:00 15.0 I&O- Last 24 Hours up to 6 AM 05/13/20 06:00 Intake Total 100 ml Output Total 325 ml Balance -225 ml CHERRY LATHAM DO May 13, 2020 10:45
[2020-05-13] MEDS: LevoFLOXacin IV 750 MG in IV 1 EA IV SCH (11:42)
[2020-05-13] MEDS: ACETAMINOPHEN 325 MG/10.15 ML UDC GT PRN ×2 (18:15→23:45)
[2020-05-14] VITALS (19 sets, daily range): BP systolic 86–115; BP diastolic 46–68; O2SAT 91–97
[2020-05-14] MEDS ORDERED: SODIUM CHLORIDE 0.9% 250ML IV ONE (00:30)
[2020-05-14] MEDS: MEROPENEM INJ 1 GM in IV 1 EA IV SCH ×3 (00:42→16:19)
[2020-05-14] MEDS: SUCRALFATE SUSP 1GM/10ML UD GT SCH ×5 (01:36→22:49)
[2020-05-14] MEDS: NYSTATIN 100,000 UNITS/GM TOPICAL PWD 15 GM TOP SCH ×3 (01:37→22:50)
[2020-05-14] MEDS: SODIUM CHLORIDE HYPERTONIC 3% 15ML NEB SOL INH SCH ×6 (03:53→23:50)
[2020-05-14 04:14] LABS: BASO # 0.1 10^3/uL (0.0-0.2); BASO % 0.4 % (0.0-1.0); EOS # 0.1 10^3/uL (0.0-0.5); EOS % 0.6 % (0.0-3.0); HEMATOCRIT 32.6 % (36.0-47.0); HEMOGLOBIN 10.1 g/dl (12.0-15.5); LYMPH # 0.8 10^3/uL (1.5-5.0); LYMPH % 5.1 % (24.0-44.0); MEAN CORPUSCULAR HEMOGLOBIN 27.8 pg (27.0-33.0); MEAN CORPUSCULAR VOLUME 89.8 fl (80.0-96.0); MONO # 1.3 10^3/uL (0.0-0.8); MONO % 8.6 % (2.0-8.0); NEUTROPHILS # 12.4 10^3/uL (1.5-8.5); NEUTROPHILS % 84.8 % (36.0-66.0); PLATELET COUNT, AUTOMATED 474 10^3/uL (150-450); RED BLOOD COUNT 3.63 10^6/uL (4.00-5.40); WHITE BLOOD COUNT 14.6 10^3/uL (4.0-10.0)
[2020-05-14 04:36] LABS: BLOOD UREA NITROGEN 24 MG/DL (7-18); CALCIUM LEVEL 8.4 MG/DL (8.8-10.2); CARBON DIOXIDE LEVEL 30 MEQ/L (21-32); CHLORIDE LEVEL 105 MEQ/L (98-107); GLOMERULAR FILTRATION RATE > 60.0 (>39); GLUCOSE, FASTING 149 MG/DL (70-100); MAGNESIUM LEVEL 1.9 MG/DL (1.8-2.4); SODIUM LEVEL 138 MEQ/L (136-145)
[2020-05-14] MEDS: SODIUM CHLORIDE 0.9% INJ 10 ML SYR IV SCH ×2 (06:50→18:49)
[2020-05-14] MEDS: IPRATROPIUM 0.5MG/ALBUTEROL 2.5MG INH SOL UD 3ML (DUONEB) NEB SCH ×4 (07:17→21:12)
[2020-05-14] MEDS: APIXABAN 5 MG TAB (ELIQUIS) PEG SCH ×2 (09:20→22:49)
[2020-05-14] MEDS: guaiFENesin SYRUP 200 MG/10 ML UDC GT SCH ×3 (09:20→22:47)
[2020-05-14] MEDS: OMEPRAZOLE SUSPENSION 20MG 10ML ORAL SYRINGE PEG SCH (09:20)
[2020-05-14] MEDS: CHLORHEXIDINE GLUCONATE 0.12 % 15ML UDC (PERIDEX ORAL RINSE) MT SCH ×2 (10:38→22:47)
[2020-05-14] MEDS: LevoFLOXacin IV 750 MG in IV 1 EA IV SCH (10:38)
--- NOTE | 2020-05-14 11:17 | IPNPDOC ---
Text Note Date of Service The patient was seen on 05/14/20. NOTE Subjective: No any acute events overnight. Pt denies fever or chills Objective: Vitals: (See below) General: Laying in bed, slightly sitting up, appears comfortable, no acute distress, Awake / Alert HEENT: NC, AT, Trach connected to vent CVS: +S1S2 Lungs: Air entry fair, no wheezing / rhonchi Abdomen: +PEG, no tenderness, no distention Extremities: LE are without edema Assessment and plan: Patient is a 74-year-old female with a PMHx of HTN, DLP, Hx of DVT (s/p IVC on Eliquis), Sacral decubitus ulcer, Suspected neurologic disease (possible ALS) [facility] patient's hospital course was complicated with acute respiratory failure for which patient was intubated and mechanically ventilated. She ultimately received a tracheostomy and PEG tube placement. Acute respiratory failure - possibly 2/2 ALS - s/p Tracheostomy 04/29/2020 - c/w DuoNeb / Hypertonic saline / Chest PT / Mucinex - Will likely require long-term care with vent and trach management - PFS on board for LTAC placement Leukocytosis/ventilatory associated pneumonia Patient afebrile Leukocytosis improved today. Increased leukocytosis on 05/13/20 secondary to pneumonia given increased left infiltrate on chest x-ray or due to frequent suction and traumatizing of trachea Chest x-ray showed on 05/12/20 Increased left base infiltrate since 05/07/2020 Sputum culture was positive for Pseudomonas. Procalcitonin elevated to 1.1. Repeated sputum culture pending continue levofloxacin for double coverage of pseudomonas. Patient on meropenem day 6 Normocytic anemia Hemoglobin is stable ALS There is questionable diagnosis of ALS versus other neuromuscular degenerative disorders Neurology team on board Dysphagia with protein calorie malnutrition - s/p PEG tube placement 04/20/2020 - c/w PEG tube feedings with continuous infusion Hx of DVT - c/w Eliquis Anxiety - c/w Alprazolam PRN GI prophylaxis - c/w PPI and Carafate DVT prophylaxis - c/w full anticoagulation with Eliquis VS,Fishbone, I+O VS, Fishbone, I+O Laboratory Tests 05/14/20 03:37 Vital Signs Date Time Temp Pulse Resp B/P (MAP) Pulse Ox O2 Delivery O2 Flow Rate FiO2 05/14/20 10:00 20 40 05/14/20 10:00 93 Ventilator 05/14/20 07:19 81 05/14/20 04:30 98/54 (69) 05/14/20 04:00 96.3 05/11/20 09:00 15.0 I&O- Last 24 Hours up to 6 AM 05/14/20 06:00 Intake Total 2780 ml Output Total 625 ml Balance 2155 ml CHERRY LATHAM May 14, 2020 11:17
[2020-05-14] MEDS: ALPRAZolam 0.25 MG TAB GT PRN ×2 (13:52→22:48)
[2020-05-14 14:07] LABS: APPEARANCE, URINE HAZY (CLEAR); BACTERIA, URINE AUTO 1+ (NEGATIVE); BILIRUBIN, URINE AUTO NEGATIVE (NEGATIVE); BLOOD, URINE BLOOD 1+ (NEGATIVE); COLOR, URINE YELLOW (YELLOW); GLUCOSE, URINE (UA) AUTO NEGATIVE (NEGATIVE); KETONE, URINE AUTO TRACE mg/dL (NEGATIVE); LEUKOCYTE ESTERASE, URINE AUTO 2+ (NEGATIVE); NITRITE, URINE AUTO NEGATIVE (NEGATIVE); PROTEIN, URINE AUTO 1+ mg/dL (NEGATIVE); RBC, URINE AUTO 80 /HPF (0-3); SPECIFIC GRAVITY URINE AUTO 1.019 (1.002-1.035); SQUAMOUS EPITHELIAL CELL UR AU 0 /HPF (0-6); UROBILINOGEN, URINE AUTO 0.2 mg/dL (0.0-2.0); WBC, URINE AUTO 47 /HPF (0-3)
[2020-05-14] MEDS: ACETAMINOPHEN 325 MG/10.15 ML UDC GT PRN (17:14)
[2020-05-15] VITALS (15 sets, daily range): BP systolic 96–125; BP diastolic 47–59; O2SAT 91–98
[2020-05-15] MEDS: MEROPENEM INJ 1 GM in IV 1 EA IV SCH ×3 (01:00→17:36)
[2020-05-15] MEDS: SODIUM CHLORIDE HYPERTONIC 3% 15ML NEB SOL INH SCH ×6 (04:32→23:15)
[2020-05-15] MEDS: SUCRALFATE SUSP 1GM/10ML UD GT SCH ×3 (05:59→17:35)
[2020-05-15] MEDS: SODIUM CHLORIDE 0.9% INJ 10 ML SYR IV SCH ×2 (06:00→17:36)
[2020-05-15 07:16] LABS: BASO % 0.4 % (0.0-1.0); EOS # 0.5 10^3/uL (0.0-0.5); EOS % 4.5 % (0.0-3.0); HEMATOCRIT 34.9 % (36.0-47.0); HEMOGLOBIN 10.3 g/dl (12.0-15.5); LYMPH # 0.8 10^3/uL (1.5-5.0); LYMPH % 7.3 % (24.0-44.0); MEAN CORPUSCULAR HGB CONC 29.5 g/dl (32.0-36.5); MEAN CORPUSCULAR VOLUME 91.4 fl (80.0-96.0); MONO % 9.6 % (2.0-8.0); NEUTROPHILS # 8.3 10^3/uL (1.5-8.5); NEUTROPHILS % 77.5 % (36.0-66.0); PLATELET COUNT, AUTOMATED 466 10^3/uL (150-450); RED BLOOD COUNT 3.82 10^6/uL (4.00-5.40); WHITE BLOOD COUNT 10.7 10^3/uL (4.0-10.0)
[2020-05-15] MEDS: IPRATROPIUM 0.5MG/ALBUTEROL 2.5MG INH SOL UD 3ML (DUONEB) NEB SCH ×4 (07:29→19:25)
[2020-05-15 07:31] LABS: BLOOD UREA NITROGEN 20 MG/DL (7-18); CALCIUM LEVEL 7.9 MG/DL (8.8-10.2); CARBON DIOXIDE LEVEL 30 MEQ/L (21-32); CHLORIDE LEVEL 106 MEQ/L (98-107); CREATININE FOR GFR 0.23 MG/DL (0.55-1.30); GLOMERULAR FILTRATION RATE > 60.0 (>39); GLUCOSE, FASTING 91 MG/DL (70-100); MAGNESIUM LEVEL 2.2 MG/DL (1.8-2.4); POTASSIUM SERUM 4.3 MEQ/L (3.5-5.1); SODIUM LEVEL 140 MEQ/L (136-145)
[2020-05-15] MEDS: guaiFENesin SYRUP 200 MG/10 ML UDC GT SCH ×3 (09:53→21:25)
[2020-05-15] MEDS: CHLORHEXIDINE GLUCONATE 0.12 % 15ML UDC (PERIDEX ORAL RINSE) MT SCH ×2 (09:53→21:24)
[2020-05-15] MEDS: APIXABAN 5 MG TAB (ELIQUIS) PEG SCH ×2 (09:53→21:24)
[2020-05-15] MEDS: ALPRAZolam 0.25 MG TAB GT PRN ×2 (09:54→17:47)
[2020-05-15] MEDS: NYSTATIN 100,000 UNITS/GM TOPICAL PWD 15 GM TOP SCH ×2 (09:54→21:25)
[2020-05-15] MEDS: OMEPRAZOLE SUSPENSION 20MG 10ML ORAL SYRINGE PEG SCH (09:54)
--- NOTE | 2020-05-15 10:58 | IPNPDOC ---
Text Note Date of Service The patient was seen on 05/15/20. NOTE Subjective: Patient denied fever, chills, nausea, vomiting, diarrhea. No any acute events overnight Objective: Vitals: (See below) General: Laying in bed, slightly sitting up, appears comfortable, no acute distress, Awake / Alert HEENT: NC, AT, Trach connected to vent CVS: +S1S2 Lungs: Air entry fair, no wheezing / rhonchi Abdomen: +PEG, no tenderness, no distention Extremities: LE are without edema Assessment and plan: Patient is a 74-year-old female with a PMHx of HTN, DLP, Hx of DVT (s/p IVC on Eliquis), Sacral decubitus ulcer, Suspected neurologic disease (possible ALS) [facility] patient's hospital course was complicated with acute respiratory failure for which patient was intubated and mechanically ventilated. She ultimately received a tracheostomy and PEG tube placement. Acute respiratory failure - possibly 2 ALS - s/p Tracheostomy 04/29/2020 - c/w DuoNeb / Hypertonic saline / Chest PT / Mucinex - Will likely require long-term care with vent and trach management - PFS on board for LTAC placement. Await placement on Saturday Leukocytosis/ventilatory associated pneumonia Patient afebrile Leukocytosis improved today. Increased leukocytosis on 05/13/20 secondary to pneumonia given increased left infiltrate on chest x-ray or due to frequent suction and traumatizing of trachea Chest x-ray showed on 05/12/20 Increased left base infiltrate since 05/07/2020 Sputum culture was positive for Pseudomonas. Procalcitonin elevated to 1.1. Repeated sputum culture negative for Pseudomonas continue levofloxacin for now Patient on meropenem day 7 Normocytic anemia Hemoglobin is stable ALS There is questionable diagnosis of ALS versus other neuromuscular degenerative disorders Neurology team on board Dysphagia with protein calorie malnutrition - s/p PEG tube placement 04/20/2020 - c/w PEG tube feedings with continuous infusion Hx of DVT - c/w Eliquis Sacral wound Stage IV Appreciate/ agree with wound care consult Anxiety - c/w Alprazolam PRN GI prophylaxis - c/w PPI and Carafate DVT prophylaxis - c/w full anticoagulation with Eliquis VS,Fishbone, I+O VS, Fishbone, I+O Laboratory Tests 05/15/20 06:57 Vital Signs Date Time Temp Pulse Resp B/P (MAP) Pulse Ox O2 Delivery O2 Flow Rate FiO2 05/15/20 10:00 92 Ventilator 40 05/15/20 10:00 20 05/15/20 08:00 98.4 94 123/58 (79) 05/11/20 09:00 15.0 I&O- Last 24 Hours up to 6 AM 05/15/20 06:00 Intake Total 1390 ml Output Total 1050 ml Balance 340 ml CHERRY LATHAM DO May 15, 2020 10:58
[2020-05-15] MEDS: LevoFLOXacin IV 750 MG in IV 1 EA IV SCH (11:23)
--- NOTE | 2020-05-15 12:20 | IPN ---
PULMONARY PROGRESS NOTE DATE: 05/15/2020 SUBJECTIVE: I again attended Nedra Bledsoe here in the progressive care unit. She remains on mechanical ventilatory support. She is comfortable this morning. I spoke at length with the nurse at the bedside. I am told she potentially has orders for transfer to a long-term care facility tomorrow. Maximum temperature (T-max) overnight 98.4, blood pressure 90s-120s, heart rate generally in the 80s-90s with a sinus mechanism, respiratory rate upper teens to low 20s without accessory muscle use. Input and output midnight to midnight: 1690 mL in with 875 mL out. Most recent laboratories show white blood cell count 10.7, hemoglobin 10.3, platelet count 466,000, 77.5% segs, no bands. Sodium 140, potassium 4.3, chloride 106, CO2 30, BUN 20, creatinine 0.23, glucose 91. Most recent sputum sent on May 13, 2020 shows decreased normal john. There were a few gram-positive cocci in pairs, chains and clusters. Minimal white blood cells. PHYSICAL EXAMINATION: She is awake, alert, appropriate. She is comfortable. She is interactive. Pupils and sclerae clear. Trach site clean and dry. CHEST: Shows diminished but recently symmetric expansion. There are some occasional rhonchi cleared with suctioning. Secretions remain mildly blood-tinged. No other focal adventitious breath sounds are identified. HEART EXAM: Regular. Peripheral pulse palpable with no edema. ABDOMEN: Soft, nontender with active bowel sounds. Percutaneous endoscopic gastrostomy (PEG) site clean and dry. EXTREMITIES: No cyanosis or clubbing. NEUROLOGIC: She is awake, alert and appropriate, remains globally weak with no focal changes. PSYCHIATRIC: Normal mood and affect. MEDICATION LIST: Has been reviewed. She remains on Levaquin and meropenem. Also, deep venous thrombosis (DVT) prophylaxis remains in place and she remains on nebulized bronchodilators. IMPRESSION: 1. Chronic respiratory failure secondary to progressive neuromuscular disease. 2. Recent aspiration event. 3. DVT on anticoagulation. 4. Progressive neuromuscular disease. RECOMMENDATIONS: At this point, no ventilator changes are planned. She did have some difficulties with secretions and atelectasis, which improved with changes in suctioning and increased ventilatory support. The hopes initially would be that she would be able to maintain her ventilatory status with just tracheostomy due to the degree of her retrobulbar symptoms, but this did not prove to be the case. For now, we will continue her current regimen pending her transfer to ventilator support and long-term care facility. Further recommendations will be made in the progress record as new information becomes available.
[2020-05-15] MEDS: IPRATROPIUM 0.5MG/ALBUTEROL 2.5MG INH SOL UD 3ML (DUONEB) NEB PRN (23:14)
[2020-05-16] VITALS: BP 104/59
[2020-05-16] MEDS: SUCRALFATE SUSP 1GM/10ML UD GT SCH ×2 (00:19→05:24)
[2020-05-16] MEDS: MEROPENEM INJ 1 GM in IV 1 EA IV SCH ×2 (00:20→10:24)
[2020-05-16] MEDS: SODIUM CHLORIDE HYPERTONIC 3% 15ML NEB SOL INH SCH ×2 (02:44→07:05)
[2020-05-16] MEDS: IPRATROPIUM 0.5MG/ALBUTEROL 2.5MG INH SOL UD 3ML (DUONEB) NEB PRN (02:44)
[2020-05-16 04:00] VITALS: BP 99/57
[2020-05-16] MEDS: ALPRAZolam 0.25 MG TAB GT PRN (05:24)
[2020-05-16] MEDS: SODIUM CHLORIDE 0.9% INJ 10 ML SYR IV SCH (05:24)
[2020-05-16 05:55] LABS: BASO # 0.1 10^3/uL (0.0-0.2); BASO % 0.5 % (0.0-1.0); EOS # 0.3 10^3/uL (0.0-0.5); EOS % 2.1 % (0.0-3.0); HEMATOCRIT 31.6 % (36.0-47.0); HEMOGLOBIN 9.6 g/dl (12.0-15.5); LYMPH # 0.9 10^3/uL (1.5-5.0); LYMPH % 6.9 % (24.0-44.0); MEAN CORPUSCULAR HGB CONC 30.4 g/dl (32.0-36.5); MONO # 0.9 10^3/uL (0.0-0.8); MONO % 6.9 % (2.0-8.0); NEUTROPHILS # 10.9 10^3/uL (1.5-8.5); NEUTROPHILS % 82.9 % (36.0-66.0); PLATELET COUNT, AUTOMATED 470 10^3/uL (150-450); RED BLOOD COUNT 3.55 10^6/uL (4.00-5.40); WHITE BLOOD COUNT 13.1 10^3/uL (4.0-10.0)
[2020-05-16 06:19] LABS: BLOOD UREA NITROGEN 18 MG/DL (7-18); CALCIUM LEVEL 8.2 MG/DL (8.8-10.2); CARBON DIOXIDE LEVEL 26 MEQ/L (21-32); CHLORIDE LEVEL 104 MEQ/L (98-107); CREATININE FOR GFR 0.32 MG/DL (0.55-1.30); GLOMERULAR FILTRATION RATE > 60.0 (>39); GLUCOSE, FASTING 160 MG/DL (70-100); MAGNESIUM LEVEL 2.3 MG/DL (1.8-2.4); POTASSIUM SERUM 4.4 MEQ/L (3.5-5.1); SODIUM LEVEL 137 MEQ/L (136-145)
[2020-05-16 07:00] VITALS: O2SAT 98
[2020-05-16] MEDS: IPRATROPIUM 0.5MG/ALBUTEROL 2.5MG INH SOL UD 3ML (DUONEB) NEB SCH ×2 (07:05→11:01)
[2020-05-16 08:00] VITALS: BP 116/64; O2SAT 95
[2020-05-16 09:00] VITALS: O2SAT 96
[2020-05-16] MEDS ORDERED: OMEP-218 PO (09:07)
[2020-05-16] MEDS ORDERED: SUCR1ORA GT (09:07)
[2020-05-16] MEDS ORDERED: ALPR0.25 GT (09:07)
[2020-05-16] MEDS ORDERED: LEVO500T3 PO ×2 (09:07→09:55)
[2020-05-16] MEDS ORDERED: BOUDPST TOP (09:07)
--- NOTE | 2020-05-16 09:34 | IPN ---
PROGRESS NOTE DATE: 05/16/2020 SUBJECTIVE: I again attended Nedra Bledsoe here in the Progressive Care Unit. Patient examined and chart reviewed. She is resting quite comfortably this morning on her current ventilator settings. T-max overnight 98.1, blood pressure in the low 100s systolic on no vasopressors. Heart rate in 80s, respiratory rate around 20 to low 20s without accessory muscle use. Ins and outs midnight to midnight 1770 mL in with 1050 mL out. Most recent laboratory shows white blood cell count 13.1, hemoglobin 9.6, platelet count 470 thousand, 82.9% segs, no bands. Sodium 137, K 4.4, chloride 104, CO2 26, BUN 18, creatinine 0.32. No new culture data. She remains on 40% FiO2. No ventilator changes have been made. She remains on PEEP of 8 and has had much less trouble with mucous plugging. She still has some bloody secretions but remains on anticoagulation. Levaquin remains in place started on May 13. Meropenem remains in place, started on May 09. She had grown pseudomonas. Recent culture raising the question of Staph but only decreased amount of normal john were cultured. She remains on Eliquis for DVT. She had a PICC line in place. OBJECTIVE: GENERAL: She is resting comfortable. HEENT: Pupils are clear. NECK: Trach site clean and dry. CHEST: Diminished but symmetric expansion, some rhonchi left mildly greater than right but no focal adventitious breath sounds are identified. Little more diminished at the left base currently. CARDIAC: Distant but regular. EXTREMITIES: Peripheral pulses palpable, trace edema. No signs of clubbing. ABDOMEN; Soft, active bowel sounds, PEG site clean and dry. NEUROLOGICAL: She is globally weak but appropriately interactive. IMPRESSION: 1. Chronic respiratory failure secondary to progressive neuromuscular disease. 2. Degenerative neuromuscular disease. 3. Aspiration. 4. DVT. 5. Intermittent mal-clearance of secretions. RECOMMENDATIONS: At this point she is getting ready for transfer to a long-term care facility. I would complete her course of antimicrobials. She has a PICC line in place. No ventilator changes are made at this point in time especially in view of her upcoming transfer. Will proceed as outlined above. If questions arise prior to her departure please do not hesitate to contact me.
[2020-05-16] MEDS ORDERED: MERO1VIA3 IV (09:54)
[2020-05-16 10:00] VITALS: O2SAT 97
[2020-05-16] MEDS: OMEPRAZOLE SUSPENSION 20MG 10ML ORAL SYRINGE PEG SCH (10:25)
[2020-05-16] MEDS: APIXABAN 5 MG TAB (ELIQUIS) PEG SCH (10:25)
[2020-05-16] MEDS: NYSTATIN 100,000 UNITS/GM TOPICAL PWD 15 GM TOP SCH (10:25)
[2020-05-16] MEDS: guaiFENesin SYRUP 200 MG/10 ML UDC GT SCH (10:26)
--- NOTE | 2020-05-16 12:18 | IPN ---
PULMONARY PROGRESS NOTE DATE: 05/14/2020 SUBJECTIVE: I again attended Nedra yost here in the Progressive Care Unit. Patient examined and chart reviewed and I spoke with the nurse at the bedside. Patient is awake, alert and does interact. She remains globally weak. T-max overnight 97.8, blood pressure 180s-115s. She has not required vasopressors. Heart rate generally in the 70s to low 100s with a sinus mechanism, respiratory rate anywhere from 18 to 22 without obvious accessory muscle use. She remains on 40% FiO2 and generally pulse ox remains in the 90s. She had a Simmons placed yesterday. I's&O's 1750 mL in with 425 mL out. PHYSICAL EXAM: On exam she is globally weak, but awake, alert and appropriately interactive. HEENT: Pupils react, sclerae clear. Neck: Trach site clean and dry. Chest: Some rhonchi left greater than right and these do clear generally with the use of directional suctioning. They remain somewhat blood tinged. She is on anticoagulants. Cardiac: Generally regular. Peripheral pulses diminished, palpable. Trace edema. Abdomen: PEG site to be clean and dry. Abdomen is soft with active bowel sounds. Extremities: Without cyanosis or clubbing, bruises consistent with her hospitalization. Neurologically: She is awake, alert and globally weak. LABORATORY DATA: Most recent laboratory shows white blood cell count down to 14.6, hemoglobin 10.1, platelet count 474,000, 84% segmented neutrophils, no bands. Sodium 138, K 4, chloride 105, CO2 130, BUN 24, creatinine 0.3. No new culture data other than the sputum from 05/13/2020 does show a few Gram-positive cocci with a few WBCs, but final culture is pending. IMAGING: No new imaging. MEDICATIONS: Med list is reviewed. She remains on meropenem as well as Levaquin. IMPRESSION: 1. Acute on chronic respiratory failure due to a neuromuscular dysfunction. 2. Suspected aspiration. 3. DVT on anticoagulation. 4. Progressive neuromuscular disease. RECOMMENDATIONS: At this point I am agreement with the current antimicrobials. No active weaning is planned at this point as she still has issues with secretions and my suspicion is that will continue to get worse as she declines from a neuromuscular standpoint. We await final culture results. Certainly she is at risk for MRSA. We will continue her current regimen for her pulmonary status. She remains on anticoagulation. She is tolerating her tube feeds. Await further input from neurology, but I am told she is in the process for placement in a ventilator care fpc facility. At this point we will proceed as outlined above. We await her repeat cultures. No ventilator changes are planned. Further recommendations will be made in the progress record as new information becomes available. AMBROCIO
--- NOTE | 2020-05-16 14:02 | DS.PDOC ---
Discharge Summary General Date of Admission Apr 13, 2020 at 22:28 Date of Discharge 05/16/20 Discharge Summary PROCEDURES PERFORMED DURING STAY: [None]. ADMITTING DIAGNOSES: Chronic right-sided hemiparesis and aphasia ALS Hypertension Hyperlipidemia History of GI bleed History of left leg DVT in April 2016 Sacral pressure ulcer Colonic diverticular disease Chronic right second toe ulcer Dysphagia Ventilatory associated pneumonia Acute respiratory failure Leukocytosis Normocytic anemia Dysphagia with protein calorie malnutrition Sacral wound Anxiety DISCHARGE DIAGNOSES: Chronic right-sided hemiparesis and aphasia ALS Hypertension Hyperlipidemia History of GI bleed History of left leg DVT in April 2016 Sacral pressure ulcer Colonic diverticular disease Chronic right second toe ulcer Dysphagia Ventilatory associated pneumonia Acute respiratory failure Leukocytosis Normocytic anemia Dysphagia with protein calorie malnutrition Sacral wound Anxiety COMPLICATIONS/CHIEF COMPLAINT: Dysphagia, Aspiration Pneumonia. 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 The patient is aphasic at baseline and history is obtained partially from the patient and from the patient's daughter over the phone. Patient's daughter states that in December the patient was admitted [facility] for colonic diverticulitis. She developed an abscess and was transferred to [facility] for IR drainage. She was then returned to [facility] where she was noticed to have increasing right-sided hemiparesis. She received both CT and brain MRI, all which were negative for any strokes. She was evaluated by Dr. 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 The patient's daughter states that since discharge. They've been following with neurology in [place]. She is unsure what the diagnosis is, however, states that since December. Her mom has developed progressively worsening weakness on her right side. Additionally, the patient was noted to have developed difficulty swallowing. Patient's daughter states that today she noticed that her mother was having more difficulty swallowing and had noted a point where the patient appeared to have started choking on her food. There are states that overall it appears that her mother looks like she is struggling more. The patient herself does not admit to any shortness of breath. She does acknowledge difficulty swallowing. On evaluation to the emergency department the patient was vitally stable. An ABG was obtained which demonstrated a pH of 7.23 and a PCO2 80.4. This was repeated 2 hours later which demonstrated. A pH of 7.23 and a PCO2 of 76.3. Patient herself is mentating well. Chest x-ray was obtained which demonstrated a p ossible right lung infiltrate. A head CT was obtained as well which was negative for any acute pathology. Hospitalist service was consulted and the patient was admitted for further evaluation management HOSPITAL COURSE: During hospital stay the following issues addressed Patient developed Acute respiratory failure - possibly 2/2 ALS. Patient received Tracheostomy 04/29/2020. Patient continues to be on the skilled nursing ventilation. Also during the hospital stay patient developed ventilatory associated pneumonia, sputum culture was positive for Pseudomonas. Chest x-ray showed on 05/12/20 Increased left base infiltrate since 05/07/2020. We started broad-spectrum antibiotics meropenem and levofloxacin. Recommendation from wearing apparel presser to continue antibiotics for next 10 days after discharge. Due to neuromuscular weakness patient developed dysphagia, PEG tube placement 04/20/2020. Also patient was found to have sacral ulcer she will need air advanced matrass and and follow-up with career transition specialist in the outpatient settings. Recommended vent settings: Vent Settings: simv-mode; tidal vol 400, resp rate 20, peep 8, pressure support 18, FiO2 40% DISCHARGE MEDICATIONS: Please see below. ALLERGIES: Please see below. PHYSICAL EXAMINATION ON DISCHARGE: VITAL SIGNS: Please see below. General: Laying in bed, slightly sitting up, appears comfortable, no acute distress, Awake / Alert HEENT: NC, AT, Trach connected to vent CVS: +S1S2 Lungs: Air entry fair, no wheezing / rhonchi Abdomen: +PEG, no tenderness, no distention Extremities: LE are without edema LABORATORY DATA: Please see below. IMAGING: Dysphagia, aspiration Hypoxia, possible pulmonary embolism.. COMPARISON: 12/25/2019. TECHNIQUE: CT angiogram chest performed following the intravenous administration of 100 cc of Isovue 370. Sagittal and coronal reconstruction images are performed. FINDINGS: Lungs: Scattered patchy infiltrate is seen in the right lower lobe and left upper lobe. There is consolidation of the left lower lobe. There is narrowing of the left mainstem bronchus and its branches. These structures contain material which probably represents secretions. An underlying endobronchial lesion cannot be excluded. Mediastinum: No adenopathy. Pulmonary arteries: No evidence of pulmonary embolism. Exam is limited by motion. Martha: No adenopathy. Axilla: No adenopathy. Pleura: There is a small left pleural effusion. Heart: Not enlarged. Thoracic aorta: No aneurysm or dissection. Upper abdominal structures: Unremarkable. Visualized osseous structures: Unremarkable. A tracheostomy tube is in place. IMPRESSION: No CT evidence of pulmonary embolism. Right lower lobe pulmonary arteries not optimally evaluated due to patient motion. Scattered patchy infiltrate right lower lobe and left upper lobe. Consolidation left lower lobe. There is narrowing of the left mainstem bronchus and more distal bronchioles. These structures contain material which probably represents secretions. An underlying endobronchial lesion cannot be excluded. PROGNOSIS: Fair ACTIVITY: [As tolerated]. DIET: Via PEG tube DISPOSITION: 63 D/[facility] ITEMS TO FOLLOWUP ON ON OUTPATIENT: Follow-up with career transition specialist, neurologist, PCP, snuff box finisher DISCHARGE CONDITION: [Stable]. TIME SPENT ON DISCHARGE: 40 minutes. Vital Signs/I&Os Vital Signs Date Time Temp Pulse Resp B/P (MAP) Pulse Ox O2 Delivery O2 Flow Rate FiO2 05/16/20 12:00 40 05/16/20 10:00 97 Ventilator 05/16/20 08:00 99.2 101 19 116/64 (81) 05/11/20 09:00 15.0 I&O- Last 24 Hours up to 6 AM 05/16/20 06:00 Intake Total 1720 ml Output Total 975 ml Balance 745 ml Laboratory Data Labs 24H Laboratory Tests 2 05/16/20 05:36: Immature Granulocyte % (Auto) 0.7, Neutrophils (%) (Auto) 82.9H, Lymphocytes (%) (Auto) 6.9L, Monocytes (%) (Auto) 6.9, Eosinophils (%) (Auto) 2.1, Basophils (%) (Auto) 0.5, Neutrophils # (Auto) 10.9H, Lymphocytes # (Auto) 0.9L, Monocytes # (Auto) 0.9H, Eosinophils # (Auto) 0.3, Basophils # (Auto) 0.1, Nucleated Red Blood Cells % (auto) 0.0, Anion Gap 7L, Glomerular Filtration Rate > 60.0, Calcium Level 8.2L, Magnesium Level 2.3 CBC/BMP Laboratory Tests 05/16/20 05:36 Microbiology Microbiology 05/13/20 Gram Stain - Final, Complete 05/13/20 Sputum Culture - Final, Complete 05/06/20 Gram Stain - Final, Complete 05/06/20 Sputum Culture - Final, Complete Pseudomonas Aeruginosa Discharge Medications Scheduled Amlodipine Besylate (Amlodipine Besylate) 10 Mg Tablet, 10 MG PO DAILY, (Reported) Apixaban (Eliquis) 5 Mg Tablet, 5 MG PO BID, (Reported) Fluticasone Propionate (Flovent Hfa) 110 Mcg/Act Aer.w.adap, 2 PUFF INH BID, (Reported) Levofloxacin (Levofloxacin) 500 Mg Tablet, 1 TAB PO DAILY Meropenem (Meropenem) 1 Gm Vial, 1 GM IV TID Omeprazole (Omeprazole) 20 Mg Capsule.dr, 20 MG PO DAILY Rosuvastatin Calcium (Rosuvastatin Calcium) 10 Mg Tablet, 10 MG PO DAILY, (Reported) Sucralfate (Sucralfate) 1 Gm/10 Ml Oral.susp, 1 GM GT Q6H Scheduled PRN Alprazolam (Alprazolam) 0.25 Mg Tablet, 0.25 MG GT Q8HP PRN for ANXIETY/AGITATION Zinc Oxide (Boudreauxs) 16% Oint...g., 0 DOSE TOP Q6HP PRN for perirectal rash Allergies Coded Allergies: No Known Allergies (Unverified , 04/21/19) CHERRY LATHAM DO May 16, 2020 14:02
== END 2020-05-16 12:27 | DRG 4 ==
LOC: M ED 15:59 → EDBD 15:59 → M ED INP 22:28 → M PCU 04-14 00:23 → M ICU 05-02 16:49 → M PCU 05-04 10:58
PROVIDERS: ADMIT Student in an Organized Health Care Education/Training Program; ATTEND Internal Medicine
PROC: 5A1955Z Respiratory Ventilation, Greater than 96 Consecutive Hours (ICD-10-PCS; 2020-04-14)
PROC: 02HV33Z Insertion of Infusion Device into Superior Vena Cava, Percutaneous Approach (ICD-10-PCS; 2020-04-14)
PROC: 0DH64UZ Insertion of Feeding Device into Stomach, Percutaneous Endoscopic Approach (ICD-10-PCS; 2020-04-20)
PROC: 0B110F4 Bypass Trachea to Cutaneous with Tracheostomy Device, Open Approach (ICD-10-PCS; principal; 2020-04-29 11:00)
PROC: 30233N1 Transfusion of Nonautologous Red Blood Cells into Peripheral Vein, Percutaneous Approach (ICD-10-PCS; 2020-05-10)
DX: G12.21 Amyotrophic lateral sclerosis (principal); J69.0 Pneumonitis due to inhalation of food and vomit; J96.02 Acute respiratory failure with hypercapnia; E43 Unspecified severe protein-calorie malnutrition; E87.3 Alkalosis; E87.2 Acidosis; G81.91 Hemiplegia, unspecified affecting right dominant side; R47.02 Dysphasia; I10 Essential (primary) hypertension; E78.5 Hyperlipidemia, unspecified; D72.829 Elevated white blood cell count, unspecified; F41.9 Anxiety disorder, unspecified; K57.30 Diverticulosis of large intestine without perforation or abscess without bleeding; Z79.899 Other long term (current) drug therapy; Z87.891 Personal history of nicotine dependence; Z86.718 Personal history of other venous thrombosis and embolism; D64.9 Anemia, unspecified; L89.159 Pressure ulcer of sacral region, unspecified stage